=== PATIENT | male | born 1960 | race Hispanic/Latino ===

== ENCOUNTER 2017-04-01 19:37 | Inpatient (IN) | payer MEDICARE ==
[2017-04-01 20:26] LABS: #Basophils 0.1 thou/uL (0.0-0.2); #Eosinphils 0.2 thou/uL (0.0-0.7); #Lymphocytes 1.6 thou/uL (1.20-3.40); #Monocytes 1.2 thou/uL (0.11-0.59); #Neutrophils 11.6 thou/uL (1.40-6.50); %Basophils 0.4 % (0.0-1.0); %Eosinophils 1.1 % (0.0-10.0); %Monocytes 8.3 % (0.0-10.0); Hematocrit 31.5 % (42.0-52.0); Mean Platelet Volume 7.2 fL (7.4-10.4); Red Blood Cell (RBC) Count 3.25 mill/uL (4.70-6.10); White Blood Cell (WBC) Count 14.7 thou/uL (4.8-10.8)
[2017-04-01] MEDS ORDERED: Acetaminophen 500 MG TAB ONE (20:36)
[2017-04-01 20:49] LABS: ALT (SGPT) 12 U/L (8-55); AST (SGOT) 15 U/L (5-34); Alkaline Phosphatase 134 U/L (40-150); Anion Gap 17 mmol/L (10-20); BUN (Urea Nitrogen) 38 mg/dL (8.4-25.7); Bilirubin, Total 0.6 mg/dL (0.2-1.2); Calc. Creatinine Clearance 0 mL/min (70-130); Carbon Dioxide 26 mmol/L (22-29); Chloride 95 mmol/L (98-107); Estimated GFR-MDRD 10; Globulin 3.9 g/dL (2.4-3.5)
[2017-04-01 21:08] LABS: Bilirubin Small (Negative); Blood, Urine Negative (Negative); Glucose, Urine (Dipstick) 250 mg/dL (Negative); Ketone, Urine Negative (Negative); Nitrite Negative (Negative); Protein, Urine (Dipstick) 300 mg/dL (Neg-Trace)
[2017-04-01 21:13] LABS: Bacteria/HPF None Seen HPF (None Seen); RBC/HPF 0-3 HPF (0-3)
[2017-04-01 21:17] LABS: Lactic Acid - Sepsis 1.6 mmol/L (0.5-2.2)
[2017-04-01] MEDS ORDERED: Ketorolac Tromethamine 30 MG/ML VIAL ONE (21:18)
[2017-04-01 21:23] LABS: Hyaline Casts/LPF 0-3 HYALINE CAST LPF (0-3 Hyaline)
[2017-04-01] MEDS ORDERED: Piperacillin/Tazobactam 4.5 GM in Sodium Chloride 0.9% 100 ML IVPB SCH (21:30)
--- NOTE | 2017-04-01 21:38 | RAD ---
AP CHEST: Indication: Fever. IMPRESSION: No acute cardiopulmonary abnormality. The examination is not appreciably changed from a comparison da emperatriz 10-31-15. Mild cardiomegaly is stable. Osseous structures are similar. POS: [facility]
[2017-04-01] MEDS ORDERED: Vancomycin HCl 1.5 GM in Sodium Chloride 0.9% 250 ML 300 ML IVPB SCH (22:00)
[2017-04-02] MEDS ORDERED: Acetaminophen 325 MG TAB PO PRN (00:01)
[2017-04-02] MEDS ORDERED: Ondansetron HCl/PF 4 MG/2 ML Vial IVP PRN (00:01)
[2017-04-02] MEDS ORDERED: Ondansetron ODT 4 MG TAB SL PRN (00:01)
[2017-04-02] MEDS ORDERED: Acetaminophen 650 MG Suppository PR PRN (02:18)
[2017-04-02] MEDS ORDERED: Dextrose 50% Abboject 50 ML SYRINGE SLOW IVP PRN (02:18)
[2017-04-02] MEDS ORDERED: Dextrose 5% in Water 1,000 ML IV PRN (02:18)
[2017-04-02] MEDS ORDERED: Vancomycin HCl 1 GM in Premix Bag 1 BAG IVPB SCH ×2 (02:30→03:00)
[2017-04-02] MEDS ORDERED: Vancomycin HCl 1.25 GM in Sodium Chloride 0.9% 250 ML 250 ML IVPB SCH (03:00)
[2017-04-02] MEDS ORDERED: Vancomycin HCl 500 MG in Sodium Chloride 0.9% 100 ML IVPB SCH (03:00)
[2017-04-02] MEDS ORDERED: HOLD VANCOMYCIN FOR LEVEL >20 FS SCH (03:00)
[2017-04-02] MEDS ORDERED: Vancomycin HCl 750 MG in Sodium Chloride 0.9% 250 ML 250 ML IVPB SCH (03:00)
[2017-04-02] MEDS: Piperacillin/Tazobactam 2.25 GM in Sodium Chloride 0.9% 100 ML IVPB SCH ×4 (03:46→21:48)
[2017-04-02] MEDS ORDERED: Piperacillin/Tazobactam 4.5 GM in Sodium Chloride 0.9% 100 ML IVPB SCH (04:00)
--- NOTE | 2017-04-02 04:14 | HP ---
PRIMARY CARE PROVIDER: Keith Frost. FURNITURE INSTALLER: Umang Dalal MD CHIEF COMPLAINT: Fever. HISTORY OF PRESENT ILLNESS: Mr. Hernandez is a pleasant 56-year-old gentleman who was seen at [facility] on 04/02/2017. He has end-stage renal disease and diffuse hemodialysis Sun, Sunday, and Sunday. He received an extra hemodialysis on Sunday because he was at volume o verload. On Sunday, that is yesterday, he started having fever. He reports that he had a temperatur e of 102 degrees Fahrenheit at home. He denies any chest pain or shortness of breath. He denies any cough. He denies any dysuria or increased frequency of urination. He denies any abdominal pain. H e denies any vomiting or diarrhea. He reports feeling shaky. REVIEW OF SYSTEMS: The following complete review of systems was negative, unless otherwise mentioned in the HPI or below: Constitutional: Weight loss or gain, sense of well-being, ability to conduct usual activities, exercise tolerance. Skin/Breast: Rash, itching, changes in hair growth or loss, n ail changes, breast lumps, tenderness, swelling, nipple discharge. Eyes: Vision, double vision, tea ring, blind spots, pain. ENT/Mouth: Headaches (location, time of onset, duration, precipitating fac tors), vertigo, lightheadedness, injury. Vision, double vision, tearing, blind spots, pain, nose blee ding, colds, obstruction, discharge, dental difficulties, gingival bleeding, dentures, neck stiffness , pain, tenderness, masses in thyroid or other areas. Cardiovascular: Precordial pain, substernal d istress, palpitations, syncope, dyspnea on exertion, orthopnea, nocturnal paroxysmal dyspnea, edema, cyanosis, hypertension, heart murmurs, varicosities, phlebitis, claudication. Respiratory: Pain, sh ortness of breath, wheezing, stridor, cough, hemoptysis, fever or night sweats. Gastrointestinal: P oor appetite, dysphagia, indigestion, abdominal pain, heartburn, eructation, nausea, vomiting, hemate mesis, jaundice, constipation, or diarrhea, abnormal stools (joshua-colored, tarry, bloody, greasy, fou l smelling), flatulence, hemorrhoids, recent changes in bowel habits. Genitourinary: Urgency, frequ ency, dysuria, nocturia, hematuria, polyuria, oliguria, unusual (or change in) color of urine, stones , hesitancy, change in size of stream, dribbling, acute retention or incontinence, libido, potency. Musculoskeletal: Pain, swelling, redness or heat of muscles or joints, limitation, of motion, muscul ar weakness, atrophy, cramps. Neurologic/Psychiatric: Convulsions, paralyzes, tremor, incoordinatio n, paresthesias, difficulties with memory of speech, sensory or motor disturbances, or muscular coord ination (ataxia, tremor), emotional problems, anxiety, depression, previous psychiatric care, unusual perceptions, hallucinations. Allergy/Immunologic: Skin rash, anemia, bleeding tendency, polydipsia , polyuria, intolerance to heat or cold. PAST MEDICAL HISTORY: Significant for end-stage renal disease on hemodialysis, transient ischemic at tack, hypertension, diabetes mellitus type 2 with retinopathy, neuropathy and nephropathy, dyslipidem ia, hemorrhagic cerebrovascular accident in 2005. PAST SURGICAL HISTORY: Significant for right foot transmetatarsal amputation, multiple dialysis acce sses, cholecystectomy, tonsillectomy, and third left toe partial digit amputation. ALLERGIES: No known drug allergies. CURRENT MEDICATIONS: Lantus insulin 30 units 2 times a day, aspirin 81 mg daily, Renvela 2400 mg 3 t imes a day, clonidine 0.1 mg 3 times a day, vitamin D3 of 1000 units daily, and lisinopril 10 mg anika y. SOCIAL HISTORY: The patient denies tobacco use, alcohol use, or recreational drug use. FAMILY HISTORY: Father at age 76 with colon cancer. PHYSICAL EXAMINATION: GENERAL: Mr. Hernandez is awake and alert, not in acute distress. VITAL SIGNS: Temperature is 99.8 degrees Fahrenheit. Pulse is 76. His breathing at rate of 20 and saturating 96% on room air. Blood pressure is 131/62. Temperature is 99.8 degrees Fahrenheit. He i s obese, with a BMI of 39.5 kilograms per square meter. EYES: No scleral icterus. No conjunctival pallor. ENT: Moist mucosal membranes. No oropharyngeal erythema or exudates. NECK: Supple, nontender, normal range of movement. Trachea is midline. RESPIRATORY: Accessory muscles of breathing are not active. Chest wall movements are symmetric bila terally. LUNGS: Clear to auscultation without wheeze, rhonchi, or crepitations. CARDIOVASCULAR: S1 and S2 are heard, regular. LUNGS: Peripheral pulses palpable. No carotid bruit, no pericardial rub. EXTREMITIES: Hemodialysis catheter access in the left upper extremity appears clean. ABDOMEN: Soft, nontender, bowel sounds heard. No hepatomegaly, no splenomegaly. NEUROLOGIC: Cranial nerves II through XII intact. Deep tendon reflexes are 2+. MUSCULOSKELETAL: Power is 5/5 in all 4 extremities. Status post amputation of all right toes. SKIN: No rashes or subcutaneous nodules. Hemodialysis catheter access site appears clean. LYMPHATIC: No cervical lymphadenopathy. PSYCHIATRIC: Normal mood, normal affect. Patient is oriented to person, place, and time. LABORATORY AND DIAGNOSTIC DATA: Mr. Hernandez's labs and investigations were reviewed. He had a chest x-ray, which did not show any pulmonary infiltrates. Laboratory investigations show leukocytosis wi th 14,700 white cells, of which 79% are neutrophils, macrocytic anemia with hemoglobin of 10.5, jorge l l platelet count, decreased sodium of 134, normal potassium, elevated blood urea nitrogen of 38, elev ated creatinine of 5.76, unremarkable liver profile, normal lactic acid and urinalysis that is positi ve for WBC, squamous epithelial cells, and a small amount of bilirubin, also positive for glucose and protein. ASSESSMENT AND PLAN: Mr. Hernandez is a pleasant 56-year-old gentleman who was seen at [facility] on 04/02/2017. His problem list includes: 1. Sepsis: Mr. Hernandez spiked a temperature of 102.3 degrees Fahrenheit in the emergency room, he a lso has leukocytosis. At this point, there is no clear focus of infection. However, bacteremia susp ected. He will be admitted to the hospital and treated with intravenous antibiotics. He has been st arted on Zosyn and vancomycin, and I will continue the same. We will await blood cultures. I am not giving him fluids, since he was recently in volume overload. 2. End-stage renal disease on dialysis. We will consult Nephrology Service and continue maintenance hemodialysis as per their recommendations. 3. Diabetes mellitus. I will start insulin sliding scale, Accu-Cheks, continue home medications. 4. History of transient ischemic attack: Stable. Many thanks for allowing me to participate in your patient's care. Please feel free to contact me wi th any questions or concerns. LEVEL OF RISK: Moderate. LEVEL OF COMPLEXITY: Moderate.
[2017-04-02 04:35] LABS: #Eosinphils 0.1 thou/uL (0.0-0.7); #Lymphocytes 2.1 thou/uL (1.20-3.40); #Monocytes 1.5 thou/uL (0.11-0.59); #Neutrophils 8.5 thou/uL (1.40-6.50); %Basophils 0.1 % (0.0-1.0); %Eosinophils 0.9 % (0.0-10.0); %Lymphocytes 17.1 % (21.0-51.0); %Monocytes 12.1 % (0.0-10.0); Hematocrit 26.7 % (42.0-52.0); Red Blood Cell (RBC) Count 2.75 mill/uL (4.70-6.10); White Blood Cell (WBC) Count 12.2 thou/uL (4.8-10.8)
[2017-04-02 04:42] LABS: Anion Gap 14 mmol/L (10-20); BUN (Urea Nitrogen) 45 mg/dL (8.4-25.7); Calc. Creatinine Clearance 21 mL/min (70-130); Calcium 8.3 mg/dL (7.8-10.44); Carbon Dioxide 29 mmol/L (22-29); Chloride 96 mmol/L (98-107); Estimated GFR-MDRD 9
[2017-04-02] MEDS: HumaLOG 300 UNITS/3 ML VIAL SC PRN ×3 (06:41→22:44)
[2017-04-02] MEDS: Heparin 5,000 UNITS/ML VIAL SC SCH ×3 (09:13→21:41)
[2017-04-02] MEDS ORDERED: Epoetin (ESRD) 20,000 UNITS/ML SC SCH (09:15)
--- NOTE | 2017-04-02 09:47 | CON ---
DATE OF CONSULTATION: 04/02/2017 HISTORY OF PRESENT ILLNESS: Mr. Hernandez is a 56-year-old male who was admitted for right fo ot infection/fever. He has been empirically treated with Zosyn and IV vancomycin. We are now being consulted for his maintenance hemodialysis. Please note the patient has been having a temperature as high as 102 in the last few days. REVIEW OF SYSTEMS: No chest pain, no shortness of breath. Positive for chronic right foot infection , no nausea, no vomiting, no diarrhea. Positive for fever. No headache, no diplopia. No nausea, no vomiting, no hematochezia, no melena, no hematemesis. No abdominal pain. Appetite and energy level is decreased. No dysphagia, occasional heartburn. No joint pains. No new skin rash. HOME MEDICATIONS: Lantus insulin 30 units subcu b.i.d., aspirin 81 mg tab once daily, Renvela 800 mg 3 tabs t.i.d. with meals, clonidine 0.1 mg t.i.d., vitamin D3 1000 international units daily, lisino pril 10 mg daily. Currently, the patient has been started on vancomycin and Zosyn. PAST MEDICAL HISTORY: 1. ESRD from presumed diabetic nephropathy - on maintenance hemodialysis Sunday, Sunday, and ay 2. Type 2 diabetes mellitus. 3. Status post seizure disorder. 4. Peripheral vascular disease. 5. Status post CHF. 6. Status post cerebrovascular accident. PAST SURGICAL HISTORY: 1. Status post laparoscopic cholecystectomy. 2. Status post AV fistula placement. 3. Status post debridement of the right foot ulcer. 4. Status post AV fistula placement. 5. Status post cuffed dialysis catheter placement. 6. Status post right second toe amputation. SOCIAL HISTORY: The patient is . 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 He lives in [place]. N o IV drug abuse. Status post blood transfusion. Currently, no smoking. Medically disabled. FAMILY HISTORY: No family history of ESRD. ALLERGIES: None. TRAUMA: None. IMMUNIZATIONS: Up to date. HOSPITALIZATIONS: Please see past medical history. PHYSICAL EXAMINATION: VITAL SIGNS: Blood pressure is noted at 131/62 with a heart rate of 76, temperature 99.8, O2 sat 96% . GENERAL: He is awake, alert, supine, comfortable. SKIN: Adequate turgor. HEENT: Pinkish conjunctivae, anicteric sclerae. NECK: No neck mass, no carotid bruits. No JVD. Trachea is midline. LUNGS: Clear breath sounds. No wheezing, no crackles. HEART: Normal sinus rhythm. No murmur, no gallops or rubs. ABDOMEN: Globular, soft, nontender, no masses. Positive for bowel sounds. EXTREMITIES: No edema, no deformities. LUNGS: Status post amputation of the right toes. NEUROLOGIC: Moving all extremities. No tremors or asterixis, no ataxia. LABORATORY: 04/02/2017 - White count 12.2, hemoglobin 9.2. Sodium 135, potassium 3.8, chloride 96, carbon dioxide 29, BUN 45, creatinine 6.48, glucose 298, calcium 8.3. ASSESSMENT AND PLAN: 1. End-stage renal disease secondary to diabetic nephropathy - we will continue current Sunday, esd, Sunday hemodialysis regimen. Fluid removal as tolerated by the patient. No changes with this current dialysis regimen. I did review the last Kt/V and he is adequately dialyzed with the current dialysis regimen. 2. Fever. This could be an underlying right foot infection. He does have a small discharge on near ly a pinpoint ulceration. He is on empiric IV antibiotics. 3. Anemia - p.r.n. blood transfusion. Resume Epogen 10,000 units subcu q. week. Overall, I agree with current management.
--- NOTE | 2017-04-02 12:02 | HP ---
DATE OF CONSULTATION: 04/02/2017 HISTORY OF PRESENT ILLNESS: A 56-year-old male well known to me. He has had partial amputations of his right foot on multiple occasions. He has been followed by Podiatry for a neuropathic ulcer plant ar arch right foot. They have been debriding callus. The patient presents on this occasion admitted 04/02/2017 for chills and discomfort in his foot and fever. He had a fever to 102 degrees as an out patient. He has a right midfoot plantar ulceration. Wound Care call me today noting that he has a c allus and proximal plantar ulceration extends tracking the lateral portion of his foot with purulent discharge and cellulitis, plantar and lateral and dorsally. Blood cultures have been negative. This wound has not been cultured. When I probed the wound, it extends about 3-4 cm deep and laterally an d by the patient feels to involve connective tissue. There is connective tissue that falls out of th e wound when I removed the probing Q-tip. White count 12, hemoglobin 9.2. The patient has end-stage renal disease on maintenance dialysis via left arm fistula that I placed years past. The patient arroyo d a cardiac stress test last year that was normal with a normal ejection fraction. He has had previo us amputation of his right third, fourth, and fifth toes to the proximal phalanx with primary closure of third and fourth toes and right small toe wound left open to heal by secondary intention, 02/2012 , right great toe and metatarsal healing secondary intention 10/2011; 07/2011 amputation of left thir d toe through the proximal pharynx left open for healing by secondary intention; 03/10/2011 left basi lic vein transposition fistula; 12/14/2010 left arm primary fistula. ALLERGIES: None. TOBACCO: None for more than 20 years. ALCOHOL: None. PAST SURGICAL HISTORY: Laparoscopic cholecystectomy 12/2009, decubitus ulcer debridement sacral circ umcision 10/31/1999, tonsillectomy, drainage of deep neck abscess 06/19/2011, right frontal external ventricular drain placed after hemorrhagic stroke by Dr. Kelvin Walls 11/22/2005, PEG tube place ment and eventually removed, history EGDs and colonoscopies, multiple foot surgeries, left third toe distal toe, left basilic vein transposition fistula in 02/2011 after 12/14/2010 left arm fistula, par tial amputations of toes, right foot 2010 and 2011. PAST MEDICAL HISTORY: Diabetes mellitus, hypertension, obesity, end-stage renal disease on [facility] dialysis Sunday, Sunday, and Sunday, followed by Dr. Umang Dalal, history of hemorrhagic stro ke, history neuropathic ulcer. 12/31/2013, incision and drainage of large abscess, right foot, debriding skin and subcutaneous tissu e and wound VAC. HOME MEDICATIONS: Atorvastatin 20 mg at bedtime, aspirin 81 mg daily, insulin 30 units subcu b.i.d., Humalog 10 units subcu t.i.d., hydralazine 50 mg t.i.d., clonidine 0.2 mg b.i.d., Renvela 800 mg t.i .d., Protonix 40 mg daily, trazodone 50 mg at bedtime. REVIEW OF SYSTEMS: Ten point noncontributory. PHYSICAL EXAMINATION: VITAL SIGNS: Temperature 98.3, 70, 146/61. He is 5 foot 7, 252 pounds, 39 BMI. HEENT: Unremarkable. LUNGS: Clear to auscultation. CARDIAC: Regular rate and rhythm without murmur or gallop. EXTREMITIES: Fistula in left arm with good thrill and bruit. Palpable pulses feet. Partial amputat ions toes of left foot and right foot as described above. Neuropathic ulcer, plantar aspect proximal plantar right foot. There is about a 2 cm opening. After informed consent, alcohol prep, sharp excisional resectional debridement using a 10 blade scalp el used to remove callus. Probing this reveals it extends 3-4 cm deep laterally and seems to involve underlying tendons by palpation. There is purulent discharge and necrotic tissue protruding, there is cellulitis. ASSESSMENT AND PLAN: 1. Diabetic foot infection, right. We will obtain x-rays of the patient's foot right and make [facility] recommendations based on this. The patient is at risk for having amputation. We could debride hi s foot and perform wound care, although it is unlikely that this will heal with conservative wound ca re because of the deep infection and the location of the ulceration and his essential Charcot foot. I have talked to him about consideration of amputation below the knee with eventual prosthesis. He w ill talk to his , Dorene, about this and we will discuss it further later today or tomorrow after I obtain x-rays today. 2. Diabetes mellitus. 3. Hypertension. 4. End-stage renal disease. 5. Obesity.
[2017-04-02] MEDS: Epoetin (ESRD) 10,000 UNITS/ML VIAL SC SCH (13:32)
--- NOTE | 2017-04-02 15:38 | RAD ---
3 VIEWS RIGHT FOOT: Date: 04/02/17 COMPARISON: 03/17/14. HISTORY: Diabetic foot ulcer, assess for osteomyelitis. FINDINGS: Along the plantar aspect of the mid foot, there are two linear densities measuring in the 8-9 mm rang e, suggesting linear metallic foreign bodies within the soft tissues. There is soft tissue swelling i n these regions as well. There is severe advanced degenerative change involving the mid foot. There i s surgical absence involving the great toe at the base of the first metatarsal, the second toe at the base of the second proximal phalanx, the third toe at the distal aspect of the first proximal phalan x, the fourth toe at the level of the distal portion of fourth proximal phalanx, and of the fifth toe at the base of the fifth proximal phalanx. No subcutaneous gas. No acute fracture or dislocation. IMPRESSION: Linear foreign bodies within the plantar soft tissues near the mid foot region. Evidence of prior amp utation of all digits with marked degenerative change involving the mid foot. Osteomyelitis cannot be excluded on the basis of this exam. Plantar soft tissue swelling suggests significant cellulitis. POS: [facility]
[2017-04-02 17:26] VITALS: BMI 39.4
[2017-04-02] MEDS: Acetaminophen 325 MG TAB PO PRN ×2 (18:03→21:49)
[2017-04-02] MEDS: traMADol HCl 50 MG TAB PO PRN (21:41)
[2017-04-03] MEDS: Piperacillin/Tazobactam 2.25 GM in Sodium Chloride 0.9% 100 ML IVPB SCH ×4 (04:03→22:12)
[2017-04-03 04:41] LABS: #Eosinphils 0.2 thou/uL (0.0-0.7); #Monocytes 1.4 thou/uL (0.11-0.59); #Neutrophils 8.5 thou/uL (1.40-6.50); %Basophils 0.1 % (0.0-1.0); %Eosinophils 1.5 % (0.0-10.0); %Lymphocytes 16.2 % (21.0-51.0); %Monocytes 11.3 % (0.0-10.0); Hematocrit 27.6 % (42.0-52.0); Mean Platelet Volume 7.6 fL (7.4-10.4); Red Blood Cell (RBC) Count 2.85 mill/uL (4.70-6.10)
[2017-04-03 05:08] LABS: Anion Gap 14 mmol/L (10-20); BUN (Urea Nitrogen) 27 mg/dL (8.4-25.7); Calc. Creatinine Clearance 27 mL/min (70-130); Calcium 8.2 mg/dL (7.8-10.44); Carbon Dioxide 30 mmol/L (22-29); Chloride 93 mmol/L (98-107); Estimated GFR-MDRD 12
[2017-04-03] MEDS: HumaLOG 300 UNITS/3 ML VIAL SC PRN ×3 (06:54→21:56)
[2017-04-03] MEDS: Heparin 5,000 UNITS/ML VIAL SC SCH ×3 (09:08→21:57)
[2017-04-03] MEDS: Insulin Detemir 100 UNITS/ML 30 UNITS in Pre-Filled Syringe 1 EACH SC SCH ×2 (10:22→21:56)
--- NOTE | 2017-04-03 12:28 | PDOC.PN ---
- Subjective Encounter Start Date: 04/03/17 Encounter Start Time: 10:45 -: old records requested/rev pt seen - Objective MAR Reviewed: Yes Vital Signs & Weight: Vital Signs (12 hours) Temp Pulse Resp BP Pulse Ox 04/03/17 08:00 98.8 F 70 16 128/68 98 04/03/17 04:43 99.0 F 77 16 132/53 L 96 Weight Admit Weight 252 lb Weight 252 lb I&O: 04/02/17 04/03/17 04/04/17 06:59 06:59 06:59 Intake Total 650 730 Output Total 500 Balance 150 730 Result Diagrams: 04/03/17 03:54 04/03/17 03:54 Additional Labs: Accuchecks 04/03/17 04/03/17 04/02/17 11:59 05:37 22:18 POC Glucose 271 H 310 H 352 H 04/02/17 12:19 POC Glucose 239 H Radiology Reviewed by me: Yes EKG Reviewed by me: Yes Phys Exam - Physical Examination Constitutional: NAD HEENT: PERRLA, moist MMs, sclera anicteric, oral pharynx no lesions Neck: no nodes, no JVD, supple, full ROM Respiratory: no wheezing, no rales, no rhonchi, clear to auscultation bilateral Cardiovascular: RRR, no significant murmur, no rub Gastrointestinal: soft, non-tender, no distention, positive bowel sounds Musculoskeletal: edema present charcot deformity of R foot, amputated toes. plantar wound deep Neurological: non-focal, normal sensation, moves all 4 limbs Lymphatic: no nodes Psychiatric: normal affect, A&O x 3 Skin: no rash Dx/Plan (1) Diabetic neuropathic arthropathy Code(s): E11.610 - TYPE 2 DIABETES MELLITUS W DIABETIC NEUROPATHIC ARTHROPATHY Status: Chronic (2) DM2 (diabetes mellitus, type 2) Status: Acute Qualifiers: Diabetes mellitus complication status: with diabetic arthropathy Diabetes mellitus complication detail: with neuropathic arthropathy Diabetes mellitus alf insulin use: with alf use Qualified Code(s): E11.618 - Type 2 diabetes mellitus with other diabetic arthropathy; 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; 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; 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 ( 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) use of insulin; 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 MRI per surgery scheduled, will follow up on results and surgical recommendations. CCM at present
--- NOTE | 2017-04-03 13:52 | MRI ---
MRI OF THE RIGHT FOOT PERFORMED WITHOUT CONTRAST ENHANCEMENT: HISTORY: Diabetic foot ulcer. Evaluation for osteomyelitis. COMPARISON: An MRI examination done on 01/22/2014 and a plain film of the right foot, which was performed yesterd ay. FINDINGS: There is considerable motion artifact, which degrades detail. The patient has had an ampu tation along the base of the first metatarsal. Also, amputation of portions of all the toes. The ma rrow signal change within the bones show no definite findings that would suggest osteomyelitis. The soft tissue changes along the plantar surface of the foot, at the level of the tarsal bones, is again demonstrated. Minimal fluid density is seen deep to this area. The change are more extensive and e xtend more toward the lateral side of the foot than on the previous exam. Artifact related to small metallic foreign bodies are noted. IMPRESSION: 1. No magnetic resonance evidence for osteomyelitis. 2. Extensive soft tissue changes on the plantar surface of the foot. Minimal fluid is seen in this region. No large abscess collection is noted. Linear metallic densities are seen within the soft ti ssues along the plantar aspect of the foot. POS: [facility]
[2017-04-03] MEDS: traMADol HCl 50 MG TAB PO PRN (18:05)
--- NOTE | 2017-04-03 20:54 | PRG ---
DATE OF SERVICE: 04/03/2017 Mr. Hernandez has a deep infection in his right foot. Plain x-rays did not reveal any bony destruction . MRI did not reveal any evidence of bony destruction or osteomyelitis. The patient has remained af ebrile with normal heart rate. Cultures from his right foot yesterday that revealed Staphylococcus a ureus. The patient has had partial amputations of his right foot and the plantar neuropathic wound i s in the proximal arch and deep towards the ankle bones. Long-term prognosis for limb salvage is poo r. After discussion with the patient and further discussion with the patient's family, patient wishe s to proceed with local wound care and attempted salvage of his lower extremity understanding that up the road, there is a great chance of eventual [id number] amputation. Plan would be to go to the operating room tomorrow to drain this wound and wash it out and initiate more aggressive wound care. The patient is in agreement. We will plan this tomorrow afternoon.
[2017-04-04] MEDS: Piperacillin/Tazobactam 2.25 GM in Sodium Chloride 0.9% 100 ML IVPB SCH ×4 (05:25→20:09)
[2017-04-04 06:16] LABS: Anion Gap 16 mmol/L (10-20); BUN (Urea Nitrogen) 46 mg/dL (8.4-25.7); Calc. Creatinine Clearance 19 mL/min (70-130); Calcium 8.1 mg/dL (7.8-10.44); Carbon Dioxide 27 mmol/L (22-29); Chloride 95 mmol/L (98-107); Estimated GFR-MDRD 8; Magnesium 2.1 mg/dL (1.6-2.6)
[2017-04-04 06:17] LABS: #Eosinphils 0.3 thou/uL (0.0-0.7); #Lymphocytes 2.4 thou/uL (1.20-3.40); #Monocytes 1.2 thou/uL (0.11-0.59); #Neutrophils 7.8 thou/uL (1.40-6.50); %Basophils 0.1 % (0.0-1.0); %Eosinophils 2.9 % (0.0-10.0); %Lymphocytes 20.2 % (21.0-51.0); %Monocytes 10.5 % (0.0-10.0); Hematocrit 26.9 % (42.0-52.0); Mean Platelet Volume 7.2 fL (7.4-10.4); Red Blood Cell (RBC) Count 2.79 mill/uL (4.70-6.10); White Blood Cell (WBC) Count 11.7 thou/uL (4.8-10.8)
--- NOTE | 2017-04-04 08:45 | PRG ---
DATE OF SERVICE: 04/04/2017 SUBJECTIVE: Mr. Hernandez is a 56-year-old male being followed up for his ESRD. He is curren tly undergoing dialysis. I am at the bedside supervising his dialysis. Mr. Hernandez was also seen by surgery for his deep infection of the right foot. A surgical debridement is being planned today. H e voices no new complaints. He denies any chest pain or shortness of breath. OBJECTIVE: VITAL SIGNS: Blood pressure 155/63, heart rate 67, respiration 16, temperature 98.6, pulse ox 95%. GENERAL: Noted to be awake and alert, comfortable, not in distress. SKIN: Adequate turgor. HEENT: He has slightly pale conjunctivae, anicteric sclerae. NECK: No neck mass, no carotid bruits, no JVD. CHEST: No deformities. LUNGS: Clear breath sounds. No wheezing, no crackles. HEART: Normal sinus rhythm. No murmur, no gallops or rubs. ABDOMEN: Globular, soft, nontender, no masses. EXTREMITIES: Right foot dressing noted. NEUROLOGIC: Awake, oriented, moving all extremities. MEDICATIONS: Of 04/04/2017 was reviewed. LABORATORY DATA: Of 04/04/2017, white count 11.7, hemoglobin 8.8. Sodium 134, potassium 3.7, chlori de 95, carbon dioxide 27, BUN 46, creatinine 7.2, glucose 93, calcium 8.1, magnesium 2.1. ASSESSMENT AND PLAN: 1. End-stage renal disease, stable. Currently undergoing dialysis. Tolerating said treatment, atte mpt 4 liter of fluid removal only as tolerated. Continue the same dialysis bath. No heparin use. 2. Right foot infection - for surgical debridement on IV antibiotics. 3. Anemia. We will continue weekly Epogen of 10,000 units subcu. 4. Recheck base met and CBC in a.m.
[2017-04-04 08:55] LABS: Vancomycin, Random 13.9 ug/mL (See Comment)
[2017-04-04] MEDS: Insulin Detemir 100 UNITS/ML 30 UNITS in Pre-Filled Syringe 1 EACH SC SCH ×2 (09:00→20:09)
[2017-04-04] MEDS: Heparin 5,000 UNITS/ML VIAL SC SCH ×3 (09:00→20:10)
--- NOTE | 2017-04-04 14:56 | PDOC.PN ---
- Subjective Encounter Start Date: 04/04/17 Encounter Start Time: 08:45 Pt seen on morning rounds while he was in dialysis. No F/C, no night sweats, no n/v/d/c, no pain. MRI results reviewed, case discussed with Dr Wood. to OR today after HD for I&D. no MRI evidence of osteo. Pt wants to have aggressive wound care. Cx with MSSa. no F/C,no N/V/d/C. 10 point ROS performed and all systems neg for all except as per HPI - Objective Resuscitation Status: full MAR Reviewed: Yes Vital Signs & Weight: Vital Signs (12 hours) Temp Pulse Resp BP Pulse Ox 04/04/17 12:22 98.5 F 71 16 165/88 H 97 04/04/17 07:15 98.6 F 67 16 155/63 H 95 04/04/17 04:22 98.6 F 72 16 155/71 H 97 Weight Admit Weight 252 lb Weight 252 lb I&O: 04/03/17 04/04/17 04/05/17 06:59 06:59 06:59 Intake Total 650 1030 Output Total 500 Balance 150 1030 Result Diagrams: 04/04/17 05:11 04/04/17 05:11 Additional Labs: Accuchecks 04/04/17 04/04/17 04/03/17 12:58 05:50 22:38 POC Glucose 80 96 244 H 04/03/17 17:13 POC Glucose 418 H Radiology Reviewed by me: Yes EKG Reviewed by me: Yes Phys Exam - Physical Examination Constitutional: NAD HEENT: PERRLA, moist MMs, sclera anicteric, oral pharynx no lesions Neck: no nodes, no JVD, supple, full ROM Respiratory: no wheezing, no rales, no rhonchi, clear to auscultation bilateral Cardiovascular: RRR, no significant murmur, no rub Gastrointestinal: soft, non-tender, no distention, positive bowel sounds Musculoskeletal: pulses present, edema present Neurological: non-focal, moves all 4 limbs Lymphatic: no nodes Psychiatric: normal affect, A&O x 3 Skin: no rash, normal turgor, cap refill <2 seconds Dx/Plan (1) Diabetic neuropathic arthropathy Code(s): E11.610 - TYPE 2 DIABETES MELLITUS W DIABETIC NEUROPATHIC ARTHROPATHY Status: Chronic Comment: right foot charcot with neuropathic ulcer, cellulitis (2) DM2 (diabetes mellitus, type 2) Status: Acute Qualifiers: Diabetes mellitus complication status: with diabetic arthropathy Diabetes mellitus complication detail: with neuropathic arthropathy Diabetes mellitus chcf insulin use: with chcf use Qualified Code(s): E11.618 - Type 2 diabetes mellitus with other diabetic arthropathy; Z79.4 - penitentiary (current) use of insulin; Z79.4 - penitentiary (current) use of insulin; Z79.4 - penitentiary ( current) use of insulin; Z79.4 - penitentiary (current) use of insulin (3) ESRD (end stage renal disease) on dialysis Code(s): N18.6 - END STAGE RENAL DISEASE; Z99.2 - DEPENDENCE ON RENAL DIALYSIS Status: Chronic (4) Cellulitis and abscess of foot Code(s): L03.119 - CELLULITIS OF UNSPECIFIED PART OF LIMB; L02.619 - CUTANEOUS ABSCESS OF UNSPECIFIED FOOT Status: Acute Comment: no MRI evidence of osteomyelitis (5) HTN (hypertension) Code(s): I10 - ESSENTIAL (PRIMARY) HYPERTENSION Status: Chronic Qualifiers: Hypertension type: essential hypertension Qualified Code(s): I10 - Essential (primary) hypertension - Plan cont current plan of care, continue antibiotics * .
[2017-04-04] MEDS ORDERED: Lidocaine 1% PF 5 ML VIAL ONE (15:25)
[2017-04-04] MEDS ORDERED: Propofol 200 MG/20 ML VIAL ONE (15:25)
[2017-04-04] MEDS ORDERED: Fentanyl 100 MCG/2 ML VIAL ONE (17:30)
[2017-04-04] MEDS ORDERED: Midazolam HCl 2 mg/2 ml Vial ONE (17:30)
[2017-04-04] MEDS: Acetaminophen 325 MG TAB PO PRN (22:27)
[2017-04-04] MEDS: traMADol HCl 50 MG TAB PO PRN (22:27)
--- NOTE | 2017-04-05 00:40 | OP ---
DATE OF PROCEDURE: 04/04/2017 PREOPERATIVE DIAGNOSES: Diabetic plantar foot ulceration and deep infection, negative plain x-rays a nd MRI for osteomyelitis. Previous amputations of toes. Neuropathic ulcer, proximal plantar arch wi th extensive undermining and purulent discharge. Enterococcus and Staphylococcus on cultures. POSTOPERATIVE DIAGNOSES: Diabetic plantar foot ulceration and deep infection, negative plain x-rays and MRI for osteomyelitis. Previous amputations of toes. Neuropathic ulcer proximal plantar arch wi th extensive undermining and purulent discharge, Enterococcus and Staphylococcus on cultures, foreign body wooden object approximately 3 cm long removed. PROCEDURE: Incision and drainage of diabetic right foot plantar abscess with removal of foreign body pulse irrigation and washout. SURGEON: Dr. Sam Wood ANESTHESIA: General LMA. PROCEDURE IN DETAIL: Patient taken to the operating room where under general LMA anesthesia, the rig ht lower extremity was prepared with chloraprep, draped in routine fashion. Wound was irrigated. Th e wound was irrigated after enlarging the incision. Digital palpation revealed a wooden foreign body round, cylindrical approximately 3 cm long. This was removed and placed in a cup, given to the fami ly. Wound pulse irrigated with 3 liters of saline solution. Saline wet to dry dressings applied. P xenia wound VAC application tomorrow intravenous antibiotics during dialysis, discharged home later thi s week with wound VAC and outpatient [facility] wound care. I will see him in outpatient wound care in the next week or two. He can be discharged home in the next 2 days with outpatient wound care next week. Prognosis is poor.
[2017-04-05] MEDS: Piperacillin/Tazobactam 2.25 GM in Sodium Chloride 0.9% 100 ML IVPB SCH ×2 (03:21→09:18)
[2017-04-05] MEDS ORDERED: hydrALAZINE 25 MG TAB PO SCH (06:00)
[2017-04-05] MEDS ORDERED: cloNIDine 0.2 MG TAB PO SCH (06:00)
[2017-04-05 06:13] LABS: #Eosinphils 0.4 thou/uL (0.0-0.7); #Lymphocytes 1.6 thou/uL (1.20-3.40); #Neutrophils 5.9 thou/uL (1.40-6.50); %Basophils 0.5 % (0.0-1.0); %Eosinophils 4.4 % (0.0-10.0); %Lymphocytes 18.1 % (21.0-51.0); %Monocytes 10.8 % (0.0-10.0); Hematocrit 29.8 % (42.0-52.0); Mean Platelet Volume 7.4 fL (7.4-10.4); Red Blood Cell (RBC) Count 3.07 mill/uL (4.70-6.10); White Blood Cell (WBC) Count 8.9 thou/uL (4.8-10.8)
[2017-04-05 06:34] LABS: Anion Gap 14 mmol/L (10-20); BUN (Urea Nitrogen) 32 mg/dL (8.4-25.7); Calc. Creatinine Clearance 25 mL/min (70-130); Calcium 8.5 mg/dL (7.8-10.44); Carbon Dioxide 30 mmol/L (22-29); Chloride 96 mmol/L (98-107); Estimated GFR-MDRD 11
[2017-04-05] MEDS: Insulin Detemir 100 UNITS/ML 30 UNITS in Pre-Filled Syringe 1 EACH SC SCH ×2 (09:19→20:43)
[2017-04-05] MEDS: Heparin 5,000 UNITS/ML VIAL SC SCH ×2 (09:19→20:44)
--- NOTE | 2017-04-05 12:25 | PQF ---
DATE: 04-05-17 ATTN: DR. DAVIS MALDONADO / DR. LILLIAM STRICKLAND Please exercise your independent, professional judgment in responding to the clarification form. Clinical indicators are provided on the bottom of this form for your review Please check appropriate box(s) to clarify if the following diagnosis has been ruled in our ruled out: SEPSIS (CDI/Coding list diagnosis here) [ X ] Ruled in diagnosis [ ] Continue to treat [ X ] Resolved [ ] Ruled out diagnosis [ ] Other diagnosis [ ] Unable to determine In addition, please specify: Present on Admission (POA): [ ] Yes [ ] No [ ] Unable to determine For continuity of documentation, please document condition throughout progress notes and discharge summary. Thank You. CLINICAL INDICATORS - SIGNS / SYMPTOMS / LABS ER DIAGNOSIS: FEVER, RULE OUT SEPSIS H&P: SEPSIS. MR. BELLAMY SPIKED A TEMPERATURE OF 102.3 DEGREES FAHRENHEIT IN THE ER, HE ALSO HAS LEUKOCYTOSIS. WBC: 04-01-17: 14.7 04-02-17: 12.2 04-03-17: 12.0 04-04-17: 11.7 TEMP: 04-01-17: 99.8, 9.8 04-02-17: 100.7 RISK FACTORS: H&P: DIABETIC FOOT INFECTION OF RIGHT, HX OF DM, HTN, CVA, FEVERS, TREATMENTS: (ER ) IV ZOSYN, VANC (This form is maintained as a part of the permanent medical record) 2014 [employer] All Rights Reserved DENZEL [email or web address] Office: [phone] [facility]
--- NOTE | 2017-04-05 12:26 | PDOC.PN ---
- Subjective Encounter Start Date: 04/05/17 Encounter Start Time: 12:24 Patient seen and examined. No new complaints. No overnight events - Objective MAR Reviewed: Yes Vital Signs & Weight: Vital Signs (12 hours) Temp Pulse Resp BP BP Pulse Ox 04/05/17 07:50 98.0 F 66 12 153/76 H 99 04/05/17 06:25 65 193/71 H 04/05/17 05:22 97.9 F 65 18 193/71 H 98 04/05/17 00:45 98.5 F 72 17 121/67 98 Weight Admit Weight 252 lb Weight 252 lb I&O: 04/04/17 04/05/17 04/06/17 06:59 06:59 06:59 Intake Total 1030 1020 Balance 1030 1020 Result Diagrams: 04/05/17 05:12 04/05/17 05:11 Additional Labs: Accuchecks 04/05/17 04/04/17 04/04/17 05:51 21:02 12:58 POC Glucose 243 H 238 H 80 Phys Exam - Physical Examination Constitutional: NAD HEENT: PERRLA Neck: no JVD Respiratory: no wheezing Cardiovascular: no significant murmur Gastrointestinal: non-tender Musculoskeletal: pulses present rt leg in dressing Neurological: moves all 4 limbs Psychiatric: A&O x 3 Dx/Plan (1) Cellulitis and abscess of foot Code(s): L03.119 - CELLULITIS OF UNSPECIFIED PART OF LIMB; L02.619 - CUTANEOUS ABSCESS OF UNSPECIFIED FOOT Status: Acute Comment: no MRI evidence of osteomyelitis i&d done by surg on 04/04 (2) DM2 (diabetes mellitus, type 2) Status: Acute Qualifiers: Diabetes mellitus complication status: with diabetic arthropathy Diabetes mellitus complication detail: with neuropathic arthropathy Diabetes mellitus fpc insulin use: with fpc use Qualified Code(s): E11.618 - Type 2 diabetes mellitus with other diabetic arthropathy; Z79.4 - shelter (current) use of insulin; Z79.4 - shelter (current) use of insulin; Z79.4 - shelter ( current) use of insulin; Z79.4 - shelter (current) use of insulin (3) Diabetic neuropathic arthropathy Code(s): E11.610 - TYPE 2 DIABETES MELLITUS W DIABETIC NEUROPATHIC ARTHROPATHY Status: Chronic Comment: right foot charcot with neuropathic ulcer, cellulitis (4) ESRD (end stage renal disease) on dialysis Code(s): N18.6 - END STAGE RENAL DISEASE; Z99.2 - DEPENDENCE ON RENAL DIALYSIS Status: Chronic (5) HTN (hypertension) Code(s): I10 - ESSENTIAL (PRIMARY) HYPERTENSION Status: Chronic Qualifiers: Hypertension type: essential hypertension Qualified Code(s): I10 - Essential (primary) hypertension - Plan * continue abx * consult dr calvert for abx recommendations * surg and renal input appreciated
--- NOTE | 2017-04-05 13:06 | CON ---
DATE OF CONSULTATION: 04/05/2017 REASON FOR CONSULTATION: Plantar foot infection. HISTORY OF PRESENT ILLNESS: A 56-year-old who has a longstanding history of type 2 diabetes mellitus , end-stage renal disease on hemodialysis and a chronic ulcer at the bottom aspect of the right first MP joint, treated in the past. I saw him in 2013 when he presented with complications related to th is ulcerated area and this time, he presented with new onset of fever. He denies any headaches, no s hortness of breath or cough, no back pain or abdominal pain, no diarrhea, no genitourinary symptoms. In the initial evaluation did not show any remarkable findings except for the amputations of the rig ht foot toes. The impression was fever of unknown origin. Subsequently, became more obvious that randell kingsley had an inflammatory process localized to the bottom of the right foot and an MRI demonstrated t his finding with evidence of foreign bodies as well. No evidence of osteomyelitis that was noted. Blanca cage underwent surgical debridement by Dr. Wood and there is a wooden foreign body which looked l nely a toothpick impacted in the tissues. Cultures from the site yielded MSSA in 2 samples and Entero coccus in one of the samples. The patient currently has a wound VAC in place. REVIEW OF SYSTEMS: Denies any headaches, no change in visual symptoms, sore throat, odynophagia, dys phagia, no chest pain, no abdominal pain or diarrhea. 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 PAST SURGICAL HISTORY: Cholecystectomy, tonsillectomy in addition to the above surgeries. ALLERGIES: None. MEDICATIONS: Insulin, aspirin, Renvela, clonidine, vitamin D. SOCIAL HISTORY: Never a smoker. FAMILY HISTORY: Colon cancer. PHYSICAL EXAMINATION: VITAL SIGNS: T-max 100.7. He is currently afebrile. BP 150/76, pulse 66, respirations 12. GENERAL: There is no distress, awake, alert, oriented, pleasant. HEENT: Ocular movements are conjugate. Oral cavity with no hamilton teeth. NECK: Supple, no jugular venous distention. LUNGS: With symmetric clear breath sounds. HEART: S1, S2, regular rate. No S3 or S4. ABDOMEN: Soft, not distended or tender. No bladder distention. Popliteal pulses are 1+ and dorsali s pedis 1+ as well, right foot with a bulky dressing and negative pressure dressing. Moves all extre mities equally without focal weakness. NEUROLOGIC: Cognitive function appears to be intact. LABORATORY DATA: White cell count down from 14-8.9, hemoglobin 10, platelets 232. Sodium 136, creat inine 5.43. Liver profile normal. Albumin 4.1. Urinalysis with 11-20 wbcs and hepatitis surface an tigen negative and the imaging study as noted above. There is a foot x-ray from 04/02/2017 showed li near foreign bodies in the plantar soft tissues. ASSESSMENT: Superficial infection, status post surgical debridement. At this point, we will transit ion patient to oral Keflex, adjusted for renal function and discharge planning with wound care treat for about 2 weeks. In view of neuropathy, the patient will be at risk for recrudescence of inflammat ory process. He will need a special orthotic to prevent recurrence.
[2017-04-05] MEDS: hydrALAZINE 25 MG TAB PO SCH ×2 (14:27→20:43)
--- NOTE | 2017-04-05 15:16 | PRG ---
DATE OF SERVICE: 04/05/2017 LOCATION: Room #6378. SUBJECTIVE: Mr. Rene Hernandez is doing well today. He is status post drainage of plantar abscess a nd removal of a wooden foreign body. Cultures of 04/02/2017 reveals Staphylococcus aureus and Entero coccus. Staphylococcus is sensitive to most everything except for the penicillins. Enterococcus is sensitive to VANCOMYCIN and PENICILLINS. The patient's wound VAC was applied today. The patient's M RI scan and plain x-rays were negative for bony involvement. At this point, I would recommend home w ound VAC and intravenous antibiotic administration with dialysis. This could be continued after rece iving vancomycin for 2 weeks and will speak to Dr. Dalal about prescribing that. He has outpatient wou nd care appointment with [facility] for wound VAC. In my opinion, [facility]. At this point, I will see as needed and we will follow to see him as an outpatient.
[2017-04-05] MEDS: HumaLOG 300 UNITS/3 ML VIAL SC PRN (18:54)
[2017-04-05] MEDS: cloNIDine 0.2 MG TAB PO SCH (20:43)
[2017-04-05] MEDS: Cephalexin 250 MG CAP PO SCH (20:43)
[2017-04-06] MEDS: Cephalexin 250 MG CAP PO SCH ×2 (09:00→21:52)
[2017-04-06] MEDS: cloNIDine 0.2 MG TAB PO SCH ×2 (09:00→21:53)
[2017-04-06] MEDS: Insulin Detemir 100 UNITS/ML 30 UNITS in Pre-Filled Syringe 1 EACH SC SCH ×2 (09:00→21:52)
[2017-04-06] MEDS: Heparin 5,000 UNITS/ML VIAL SC SCH ×2 (09:00→21:49)
[2017-04-06] MEDS: hydrALAZINE 25 MG TAB PO SCH ×3 (09:00→21:52)
--- NOTE | 2017-04-06 09:58 | PRG ---
DATE OF SERVICE: 04/06/2017 SUBJECTIVE: Mr. Hernandez is a 56-year-old male undergoing hemodialysis. I am at the bedside and supervising his dialysis. The patient has undergone debridement of his right foot. This was do ne by Dr. Wood. A foreign object was noted by Dr. Wood, this was removed. He is doing well. He has no new complaints. The patient denies any chest pain, shortness of breath. OBJECTIVE: VITAL SIGNS: Blood pressure is 109/57, heart rate 67, respiratory rate 20, temperature 98.1, and pul se ox 96%. GENERAL: Noted to be awake, alert, comfortable, not in distress. SKIN: Adequate turgor. HEENT: Slightly pale conjunctivae, anicteric sclerae. NECK: No neck mass, no carotid bruits. No JVD. CHEST: No deformities. LUNGS: Clear breath sounds. No wheezing, no crackles. HEART: Normal sinus rhythm. No murmur, no gallops, no rubs. ABDOMEN: Globular, soft, nontender, no masses. EXTREMITIES: No edema, no deformities. Positive for right foot dressing. MEDICATIONS: 04/06/2017 was reviewed. LABORATORY DATA: On 04/05/2017 - White count 8.9, hemoglobin 10. Sodium 136, potassium 4.1, chlorid e 96, carbon dioxide 30, BUN 32, creatinine 5.43, glucose 271, and calcium 8.5. ASSESSMENT AND PLAN: 1. Right foot infection, status post surgical debridement. Surgery is following. ID has also been consulted. 2. End-stage renal disease, stable. Tolerating current hemodialysis regimen. Continue fluid remova l as tolerated by the patient. No changes will be made with his dialysis regimen. 3. Anemia - The patient will be continuing on the weekly Epogen at 10,000 units subcutaneously every week.
--- NOTE | 2017-04-06 10:22 | PDOC.PN ---
- Subjective Encounter Start Date: 04/06/17 Encounter Start Time: 10:30 Subjective: Patient feeling fine. No N/V. No fever. Ready to go home. - Objective MAR Reviewed: Yes Vital Signs & Weight: Vital Signs (12 hours) Temp Pulse Resp BP Pulse Ox 04/06/17 04:35 98.1 F 67 20 109/57 L 96 Weight Admit Weight 252 lb Weight 252 lb I&O: 04/05/17 04/06/17 04/07/17 06:59 06:59 06:59 Intake Total 1020 510 Balance 1020 510 Result Diagrams: 04/05/17 05:12 04/05/17 05:11 Additional Labs: Accuchecks 04/06/17 04/05/17 04/05/17 06:40 20:36 15:44 POC Glucose 187 H 351 H 261 H Phys Exam - Physical Examination Constitutional: NAD HEENT: moist MMs Respiratory: no wheezing, no rales, no rhonchi Cardiovascular: RRR Gastrointestinal: soft, positive bowel sounds right foot wound dressed with wound vac and surgical shoe Psychiatric: normal affect, A&O x 3 Dx/Plan (1) Cellulitis and abscess of foot Code(s): L03.119 - CELLULITIS OF UNSPECIFIED PART OF LIMB; L02.619 - CUTANEOUS ABSCESS OF UNSPECIFIED FOOT Status: Acute Comment: no MRI evidence of osteomyelitis i&d done by surg on 04/04 Culture with MSSA and Enterococcus- switched to oral Keflex for 2 weeks, post surgical shoe, outpatient wound care (2) DM2 (diabetes mellitus, type 2) Status: Acute Qualifiers: Diabetes mellitus complication status: with diabetic arthropathy Diabetes mellitus complication detail: with neuropathic arthropathy Diabetes mellitus terminal make up operator insulin use: with terminal make up operator use Qualified Code(s): E11.618 - Type 2 diabetes mellitus with other diabetic arthropathy; Z79.4 - termite renewal inspector (current) use of insulin; Z79.4 - halfway (current) use of insulin; Z79.4 - halfway ( current) use of insulin; Z79.4 - termite renewal inspector (current) use of insulin (3) Diabetic neuropathic arthropathy Code(s): E11.610 - TYPE 2 DIABETES MELLITUS W DIABETIC NEUROPATHIC ARTHROPATHY Status: Chronic Comment: right foot charcot with neuropathic ulcer, cellulitis (4) ESRD (end stage renal disease) on dialysis Code(s): N18.6 - END STAGE RENAL DISEASE; Z99.2 - DEPENDENCE ON RENAL DIALYSIS Status: Chronic (5) HTN (hypertension) Code(s): I10 - ESSENTIAL (PRIMARY) HYPERTENSION Status: Chronic Qualifiers: Hypertension type: essential hypertension Qualified Code(s): I10 - Essential (primary) hypertension - Plan cont current plan of care, continue antibiotics, out of bed/ambulate * . - Discharge Day Encounter end time: 11:00
--- NOTE | 2017-04-06 21:45 | DIS ---
PRIMARY CARE PHYSICIAN: Keith. DIAGNOSES ON ADMISSION: 1. Sepsis. 2. End stage renal disease, on dialysis. 3. Diabetes mellitus. DISCHARGE DIAGNOSES: 1. Cellulitis and abscess of foot. 2. Diabetes mellitus type 2. 3. Diabetic neuropathic arthropathy. 4. End-stage renal disease, on dialysis. 5. Hypertension. PROCEDURES: 1. X-ray of the right foot showing linear foreign body to the plantar soft tissues in midfoot region , evidence of prior amputation of all digits, and plantar soft tissue swelling suggestive of signific ant cellulitis, unable to rule out osteomyelitis. 2. MRI of the right foot showing no evidence of osteomyelitis, just the extensive soft tissue change s and linear metallic densities within the soft tissues of the plantar aspect of the foot. 3. Incision and drainage of diabetic right foot plantar abscess with removal of foreign body along w ith pulse irrigation and washout. CONSULTATIONS: 1. Nephrology, Dr. Dalal. 2. General surgery, Dr. Wood. 3. Infectious Disease, Dr. Stearns. PERTINENT LABORATORY DATA: White blood cell count 14 on admission, down to 8.9 on the day of dischar ge. Bacterial culture of the foot showing moderate Staphylococcus aureus that is methicillin sensiti ve and a few Enterococcus species also sensitive to amoxicillin and cephalosporins. SUMMARY OF HOSPITAL COURSE: This is a 56-year-old male with known history of diabetes sanford beltre and end-stage renal disease, on dialysis. He came in for a fever of 102. The patient was admitt ed to the hospital. He was found to have an infected ulcer on his right foot where he had multiple a mputations before. Investigations were done as above. No osteomyelitis or ulcerations. Dr. Wood was consulted and discussed inpatient versus wound care and the patient opted for aggressive wound ca re. He had I&D with removal of some foreign bodies in the foot as well as cleaning out of the wound. The patient did have as above. Dr. Stearns was consulted for antibiotic recommendations and he recommended Keflex 500 mg for 2 weeks. The patient had outpatient wound care and is having outpatie nt wound VAC arranged. Once it is available, he will be discharged home later today. DISCHARGE MANAGEMENT: Discharged home. Follow up with wound care as an outpatient on 04/09/2017 at 1:30 p.m. at [facility] and follow up with Dr. Wood in 2-3 weeks. ACTIVITIES: As tolerated. Whenever he walks, he is to wear a post-surgical shoe. DIET: Diabetic renal diet. THERAPIES: To get outpatient wound care. DISCHARGE MEDICATIONS: 1. Keflex 500 mg twice a day for 14 days. 2. Resume home medication atorvastatin 20 mg at night. 3. Aspirin 81 mg daily. 4. Lantus 30 units subcu twice a day. 5. Humalog 10 units subcu 3 times a day. 6. Hydralazine 50 mg 3 times a day. 7. Clonidine 0.2 mg twice a day. 8. Renvela 800 mg 3 times a day. 9. Protonix 40 mg daily. 10. Trazodone 50 mg at night.
[2017-04-06] MEDS: HumaLOG 300 UNITS/3 ML VIAL SC PRN (21:49)
[2017-04-07] MEDS: hydrALAZINE 25 MG TAB PO SCH ×3 (09:26→21:52)
[2017-04-07] MEDS: cloNIDine 0.2 MG TAB PO SCH ×2 (09:26→21:53)
[2017-04-07] MEDS: Cephalexin 250 MG CAP PO SCH ×2 (09:26→21:52)
[2017-04-07] MEDS: Heparin 5,000 UNITS/ML VIAL SC SCH ×2 (09:28→21:52)
[2017-04-07] MEDS: Insulin Detemir 100 UNITS/ML 30 UNITS in Pre-Filled Syringe 1 EACH SC SCH ×2 (09:29→21:51)
[2017-04-07] MEDS: HumaLOG 300 UNITS/3 ML VIAL SC PRN (17:20)
[2017-04-08] MEDS: HumaLOG 300 UNITS/3 ML VIAL SC PRN ×4 (06:54→21:17)
[2017-04-08] MEDS: Insulin Detemir 100 UNITS/ML 30 UNITS in Pre-Filled Syringe 1 EACH SC SCH ×2 (09:46→21:16)
[2017-04-08] MEDS: Heparin 5,000 UNITS/ML VIAL SC SCH ×2 (09:46→21:15)
[2017-04-08] MEDS: hydrALAZINE 25 MG TAB PO SCH ×3 (09:47→21:16)
[2017-04-08] MEDS: cloNIDine 0.2 MG TAB PO SCH ×2 (09:47→21:16)
[2017-04-08] MEDS: Cephalexin 250 MG CAP PO SCH ×2 (09:47→21:15)
--- NOTE | 2017-04-09 08:46 | PRG ---
DATE OF SERVICE: 04/09/2017 SERVICE: Renal Medicine. SUBJECTIVE: The patient is currently undergoing dialysis. I am at the bedside supervising his dialy sis. He is doing well. He has no complaints. He denies any chest pain or shortness of breath. OBJECTIVE: VITAL SIGNS: Blood pressure is 144/66, heart rate 68, respiratory rate 15, temperature 98.1, pulse o x 98%. GENERAL: Noted to be awake, alert, supine, comfortable, not in distress. SKIN: Adequate turgor. HEENT: He has pinkish conjunctivae, anicteric sclerae. NECK: No neck mass, no carotid bruits, no JVD. CHEST: No deformities. LUNGS: Clear breath sounds. No wheezing, no crackles. HEART: Normal sinus rhythm. No murmur, no gallops or rubs. ABDOMEN: Globular, soft, nontender, no masses. EXTREMITIES: No edema, no deformities. He is positive for a right foot dressing. MEDICATIONS: Of 04/09/2017 was reviewed. LABORATORY DATA: Of 04/05/2017, hemoglobin 10, white count 8.9. On 04/09/2017, glucose 90. ASSESSMENT AND PLAN: 1. End-stage renal disease, stable. Tolerating current hemodialysis. We will plan for a 4-hour hem odialysis. Again, fluid removal only as tolerated. 2. Anemia - on weekly Epogen. 3. Status post right foot infection - patient is status post surgical debridement with Dr. Wood. Continue with current management.
[2017-04-09] MEDS: Cephalexin 250 MG CAP PO SCH ×2 (10:03→20:20)
[2017-04-09] MEDS: cloNIDine 0.2 MG TAB PO SCH ×2 (10:03→20:20)
[2017-04-09] MEDS: Insulin Detemir 100 UNITS/ML 30 UNITS in Pre-Filled Syringe 1 EACH SC SCH ×2 (10:03→20:21)
[2017-04-09] MEDS: Heparin 5,000 UNITS/ML VIAL SC SCH ×2 (10:03→20:20)
[2017-04-09] MEDS: hydrALAZINE 25 MG TAB PO SCH ×3 (10:03→20:21)
[2017-04-09] MEDS: HumaLOG 300 UNITS/3 ML VIAL SC PRN ×2 (17:45→20:22)
[2017-04-09] MEDS: Epoetin (ESRD) 10,000 UNITS/ML VIAL SC SCH (18:01)
[2017-04-10] MEDS: HumaLOG 300 UNITS/3 ML VIAL SC PRN ×2 (06:10→14:10)
[2017-04-10] MEDS: Insulin Detemir 100 UNITS/ML 30 UNITS in Pre-Filled Syringe 1 EACH SC SCH (08:20)
[2017-04-10] MEDS: cloNIDine 0.2 MG TAB PO SCH (08:21)
[2017-04-10] MEDS: hydrALAZINE 25 MG TAB PO SCH ×2 (08:21→15:44)
[2017-04-10] MEDS: Heparin 5,000 UNITS/ML VIAL SC SCH (08:21)
[2017-04-10] MEDS: Cephalexin 250 MG CAP PO SCH (08:21)
[2017-04-10 14:39] VITALS: BP 124/69; TEMP 98.6
== END 2017-04-10 18:27 | disposition home or self-care (01) | DRG 853 ==
LOC: ERS 19:37 → SURG B 22:00
PROVIDERS: ADMIT Internal Medicine; ATTEND Internal Medicine
PROC: 5A1D70Z Performance of Urinary Filtration, Intermittent, Less than 6 Hours Per Day (ICD-10-PCS; 2017-04-02)
PROC: 0J9Q0ZZ Drainage of Right Foot Subcutaneous Tissue and Fascia, Open Approach (ICD-10-PCS; principal; 2017-04-04)
PROC: 0JCQ0ZZ Extirpation of Matter from Right Foot Subcutaneous Tissue and Fascia, Open Approach (ICD-10-PCS; 2017-04-04)
DX: A41.9 Sepsis, unspecified organism (principal); N18.6 End stage renal disease; I12.0 Hypertensive chronic kidney disease with stage 5 chronic kidney disease or end stage renal disease; E11.22 Type 2 diabetes mellitus with diabetic chronic kidney disease; L03.115 Cellulitis of right lower limb; L97.418 Non-pressure chronic ulcer of right heel and midfoot with other specified severity; L02.611 Cutaneous abscess of right foot; E11.51 Type 2 diabetes mellitus with diabetic peripheral angiopathy without gangrene; E11.628 Type 2 diabetes mellitus with other skin complications; E11.621 Type 2 diabetes mellitus with foot ulcer; Z79.4 Long term (current) use of insulin; E11.610 Type 2 diabetes mellitus with diabetic neuropathic arthropathy; Z99.2 Dependence on renal dialysis; G40.909 Epilepsy, unspecified, not intractable, without status epilepticus; Z86.73 Personal history of transient ischemic attack (TIA), and cerebral infarction without residual deficits; D64.9 Anemia, unspecified; S91.321A Laceration with foreign body, right foot, initial encounter; Z89.411 Acquired absence of right great toe; Z89.421 Acquired absence of other right toe(s); E66.9 Obesity, unspecified; Z68.39 Body mass index [BMI] 39.0-39.9, adult
CPT/HCPCS: 36415; 36416; 51701; 71010; 80048; 80053; 80202; 81003; 81015; 83605; 83735; 85025; 87040; 87070; 87077; 87086; 87186; 87205; 87340; 90935; 96365; 96375; A4216; G0257; J1644; J1815; J1885; J2001; J2250; J2543; J2704; J3010; J3370; J7050; Q4081

== ENCOUNTER 2017-04-12 10:39 | Outpatient (CLI) | payer MEDICARE ==
--- NOTE | 2017-04-12 16:02 | PRG ---
DATE OF SERVICE: 04/12/2017 HISTORY: Mr. Rene Hernandez is a very pleasant 56-year-old gentleman who presents to the Wound C enter for evaluation of a wound of the plantar surface of the right foot subsequent to incision and d rainage of a diabetic right foot plantar abscess with removal of foreign body on 04/04/2017. Negativ e pressure therapy was initiated subsequent to surgery, and upon discharge from [facility], the patient was referred to the Wound Center for assistance with dressing changes of th e wound VAC. The patient was discharged to home on Keflex 500 mg p.o. b.i.d. for 14 days. The patie nt's medical history is significant for diabetes mellitus, hypertension, peripheral vascular disease, seizure disorder, multiple TIAs, multiple CVAs, decreased left ventricular systolic function, end-st age renal disease, lower gastrointestinal bleeding, and anemia of renal disease. PHYSICAL EXAMINATION: VITAL SIGNS: Temperature 97.8, pulse 69, respirations 17, and blood pressure 108/53. Accu-Chek 379. EXTREMITIES: A wound of the plantar surface of the right foot is present which measures approximatel y 2.0 x 5.2 cm. The wound is granulating. Necrotic and nonviable tissue present within the wound ma rgins was debrided with an excisional full-thickness debridement with the use of scissors and a curet te. No purulent drainage is associated with the wound. No erythema of the skin surrounding the woun d is present. No maceration of the skin of the periwound is noted. A dorsalis pedis pulse is palpab le on the right. Mild to moderate edema of the right foot is present on exam today. ASSESSMENT AND PLAN: 1. Wound of plantar surface of right foot subsequent to incision and drainage of a diabetic right fo ot plantar abscess with removal of foreign body. The patient underwent the preceding procedure on by Dr. Sam Wood. Negative pressure therapy was initiated subsequent to surgery and wi ll be continued with dressing changes of the wound VAC here in the Wound Center. The patient will be seen by Dr. Wood in 1 week. I will see Mr. Hernandez again in 3-4 weeks. The patient has been sonja nded to continue Keflex as prescribed at the time of discharge. 2. Diabetes mellitus. The patient's Accu-Chek in clinic today is 379. The patient has been told th at for optimal wound healing, his blood glucoses should remain below 150. 3. Hypertension. 4. Peripheral vascular disease. 5. Seizure disorder. 6. Multiple TIAs. 7. Multiple cerebrovascular accidents. 8. Decreased left ventricular systolic function. 9. End-stage renal disease. 10. Lower gastrointestinal bleeding. 11. Anemia of renal disease.
[2017-04-12] MEDS ORDERED: Sodium Chloride 0.9% 15 ML NEB ONE (17:54)
== END 2017-04-12 10:40 | disposition home or self-care (01) ==
LOC: WCC 10:39
PROVIDERS: ATTEND Family Medicine
DX: E11.621 Type 2 diabetes mellitus with foot ulcer (principal); L97.429 Non-pressure chronic ulcer of left heel and midfoot with unspecified severity; I73.9 Peripheral vascular disease, unspecified; G40.909 Epilepsy, unspecified, not intractable, without status epilepticus; G45.9 Transient cerebral ischemic attack, unspecified; I63.9 Cerebral infarction, unspecified; I13.2 Hypertensive heart and chronic kidney disease with heart failure and with stage 5 chronic kidney disease, or end stage renal disease; I50.1 Left ventricular failure, unspecified; N18.6 End stage renal disease; K92.2 Gastrointestinal hemorrhage, unspecified; D63.1 Anemia in chronic kidney disease
CPT/HCPCS: 11042; 82962; 97139; G0463; 36416; 99213; A4218

== ENCOUNTER 2017-04-16 13:42 | Outpatient (CLI) | payer MEDICARE ==
[2017-04-16] MEDS ORDERED: Sodium Chloride 0.9% 15 ML NEB ONE (17:06)
== END 2017-04-16 13:43 | disposition home or self-care (01) ==
LOC: WCC 13:42
PROVIDERS: ATTEND Family Medicine
DX: T81.89XD Other complications of procedures, not elsewhere classified, subsequent encounter (principal)
CPT/HCPCS: 97605; A4218

== ENCOUNTER 2017-04-19 13:36 | Outpatient (CLI) | payer MEDICARE ==
[2017-04-19] MEDS ORDERED: Sodium Chloride 0.9% 15 ML NEB ONE (21:23)
== END 2017-04-19 13:37 | disposition home or self-care (01) ==
LOC: WCC 13:36
PROVIDERS: ATTEND Family Medicine
DX: T81.89XD Other complications of procedures, not elsewhere classified, subsequent encounter (principal)
CPT/HCPCS: 97605; A4218

== ENCOUNTER 2017-04-24 11:22 | Outpatient (CLI) | payer MEDICARE ==
[2017-04-24] MEDS ORDERED: Sodium Chloride 0.9% 15 ML NEB ONE (14:36)
== END 2017-04-24 11:23 | disposition home or self-care (01) ==
LOC: WCC 11:22
PROVIDERS: ATTEND Family Medicine
DX: T81.89XD Other complications of procedures, not elsewhere classified, subsequent encounter (principal)
CPT/HCPCS: 97605; A4218

== ENCOUNTER 2017-04-26 11:04 | Outpatient (CLI) | payer MEDICARE ==
[2017-04-26] MEDS ORDERED: Sodium Chloride 0.9% 15 ML NEB ONE (13:36)
== END 2017-04-26 11:05 | disposition home or self-care (01) ==
LOC: WCC 11:04
PROVIDERS: ATTEND Family Medicine
DX: T81.89XD Other complications of procedures, not elsewhere classified, subsequent encounter (principal)
CPT/HCPCS: 97605; A4218

== ENCOUNTER 2017-05-03 11:12 | Outpatient (CLI) | payer MEDICARE | END 2017-05-03 11:13 | disposition home or self-care (01) | LOC: WCC 11:12 | PROVIDERS: ATTEND Family Medicine | DX: T81.89XD Other complications of procedures, not elsewhere classified, subsequent encounter (principal) | CPT/HCPCS: 97606 ==

== ENCOUNTER 2017-05-10 09:55 | Outpatient (CLI) | payer MEDICARE ==
--- NOTE | 2017-05-10 11:51 | PRG ---
DATE OF SERVICE: 05/10/2017 HISTORY: Mr. Rene Hernandez is a very pleasant 56-year-old gentleman who presents to the Wound Ce nter for evaluation of a wound of the plantar surface of the right foot subsequent to incision and dr jordan of a diabetic right foot plantar abscess with removal of the foreign body on 04/04/2017. Nega tive pressure therapy was initiated subsequent to surgery, and upon discharge from [facility], the patient was referred to the Wound Center for assistance with dressing changes of the wound VAC. The patient was discharged to home on Keflex 500 mg p.o. b.i.d. for 14 days. The rnadell kingsley's medical history is significant for diabetes mellitus, hypertension, peripheral vascular disea se, seizure disorder, multiple TIAs, multiple CVAs, decreased left ventricular systolic function, end -stage renal disease, lower gastrointestinal bleeding and anemia of renal disease. PHYSICAL EXAMINATION: VITAL SIGNS: Temperature 98.1, pulse 80, respirations 18, blood pressure 168/74. Accu-Chek 120. EXTREMITIES: A wound of the plantar surface of the right foot is present, which measures approximate ly 2.7 x 2.6 cm. The dimensions of the wound at the time of the patient's visit on 04/12/2017 were a pproximately 2.0 x 5.2 cm. The wound is granulating. Necrotic and nonviable tissue present within t he wound margins was debrided with an excisional full-thickness debridement with the use of scissors and a curette. No purulent drainage is associated with the wound. No erythema of the skin surroundi ng the wound is present. Maceration of the skin of the periwound is noted. Mild to moderate edema o f the right foot is present on exam today. ASSESSMENT AND PLAN: 1. Wound of plantar surface of right foot subsequent to incision and drainage of a diabetic right fo ot plantar abscess with removal of the foreign body. The patient underwent the preceding procedure o n 04/04/[address] Sam Wood. Negative pressure therapy was initiated subsequent to surgery an d will be continued with dressing changes of the wound VAC here in the Wound Center. The patient oliver l be seen by Dr. Wood in 1 week. I will see Mr. Hernandez again in two weeks. 2. Diabetes mellitus. The patient's Accu-Chek in clinic today is 120. The patient has been reminde d that for optimal wound healing, his blood glucoses should remain below 150. 3. Hypertension. 4. Peripheral vascular disease. 5. Seizure disorder. 6. Multiple transient ischemic attacks. 7. Multiple cerebrovascular accidents. 8. Decreased left ventricular systolic function. 9. End-stage renal disease. 10. Lower gastrointestinal bleeding. 11. Anemia of renal disease.
== END 2017-05-10 09:56 | disposition home or self-care (01) ==
LOC: WCC 09:55
PROVIDERS: ATTEND Family Medicine
DX: E11.621 Type 2 diabetes mellitus with foot ulcer (principal); L97.519 Non-pressure chronic ulcer of other part of right foot with unspecified severity; L02.611 Cutaneous abscess of right foot; E11.51 Type 2 diabetes mellitus with diabetic peripheral angiopathy without gangrene; G40.909 Epilepsy, unspecified, not intractable, without status epilepticus; G45.9 Transient cerebral ischemic attack, unspecified; I63.9 Cerebral infarction, unspecified; E11.22 Type 2 diabetes mellitus with diabetic chronic kidney disease; I12.0 Hypertensive chronic kidney disease with stage 5 chronic kidney disease or end stage renal disease; N18.6 End stage renal disease; K92.2 Gastrointestinal hemorrhage, unspecified; D63.1 Anemia in chronic kidney disease; I51.89 Other ill-defined heart diseases
CPT/HCPCS: 11042

== ENCOUNTER 2017-05-14 13:22 | Outpatient (CLI) | payer MEDICARE | END 2017-05-14 13:23 | disposition home or self-care (01) | LOC: WCC 13:22 | PROVIDERS: ATTEND Family Medicine | DX: T81.89XD Other complications of procedures, not elsewhere classified, subsequent encounter (principal) | CPT/HCPCS: 97605 ==

== ENCOUNTER 2017-05-17 13:21 | Outpatient (CLI) | payer MEDICARE | END 2017-05-17 13:22 | disposition home or self-care (01) | LOC: WCC 13:21 | PROVIDERS: ATTEND Family Medicine | DX: T81.89XD Other complications of procedures, not elsewhere classified, subsequent encounter (principal) | CPT/HCPCS: 97605 ==

== ENCOUNTER 2017-05-21 13:28 | Outpatient (CLI) | payer MEDICARE | END 2017-05-21 13:29 | disposition home or self-care (01) | LOC: WCC 13:28 | PROVIDERS: ATTEND Family Medicine | DX: T81.89XD Other complications of procedures, not elsewhere classified, subsequent encounter (principal) | CPT/HCPCS: 97605 ==

== ENCOUNTER 2017-05-24 13:22 | Outpatient (CLI) | payer MEDICARE ==
--- NOTE | 2017-05-24 14:58 | PRG ---
DATE OF SERVICE: 05/24/2017 HISTORY: Mr. Rene Hernandez is a very pleasant 56-year-old gentleman, who presents to the Wound C enter for evaluation of a wound of the plantar surface of the right foot subsequent to incision and d rainage of a diabetic right foot plantar abscess with removal of the foreign body on 04/04/2017. Neg ative pressure therapy was initiated subsequent to surgery, and upon discharge from [facility], the patient was referred to the Wound Center for assistance with dressing changes o f the wound VAC. The patient was discharged to home on Keflex 500 mg p.o. b.i.d. x14 days. PHYSICAL EXAMINATION: VITAL SIGNS: Temperature 98.2, pulse 86, respirations 19, blood pressure 145/67. Accu-Chek 150. EXTREMITIES: A wound of the plantar surface of the right foot is present, which measures approximate ly 2.4 x 1.9 cm. The dimensions of the wound at the time of the patient's visit on 05/10/2017 were a pproximately 2.7 x 2.6 cm. The wound is granulating. Necrotic and nonviable tissue present within t he wound margins was debrided with an excisional full-thickness debridement with the use of scissors and a curette. No purulent drainage is associated with the wound. No erythema of the skin surroundi ng the wound is present. Maceration of the skin of the periwound is noted. A dorsalis pedis pulse i s palpable on the right. No significant edema of the right foot is present on exam today. ASSESSMENT AND PLAN: 1. Wound of plantar surface of right foot subsequent to incision and drainage of a diabetic right fo ot plantar abscess with removal of the foreign body. The patient underwent the preceding procedure o n 04/04/[address] Sam Wood. Negative pressure therapy was initiated subsequent to surgery an d will be continued with dressing changes of the wound VAC here in the Wound Center. The patient oliver l be seen by Dr. Wood in 1 week. I will see Mr. Hernandez again in 2 weeks. 2. Diabetes mellitus. The patient's Accu-Chek in clinic today is 150. The patient has been reminde d that for optimal wound healing, his blood glucoses should remain below 150. 3. Hypertension. 4. Peripheral vascular disease. 5. Seizure disorder. 6. Multiple transient ischemic attacks. 7. Multiple cerebrovascular accidents. 8. Decreased left ventricular systolic function. 9. End-stage renal disease. 10. Lower gastrointestinal bleeding. 11. Anemia of renal disease.
[2017-05-25] MEDS ORDERED: Sodium Chloride 0.9% 15 ML NEB ONE (15:44)
== END 2017-05-24 13:23 | disposition home or self-care (01) ==
LOC: WCC 13:22
PROVIDERS: ATTEND Family Medicine
DX: E11.22 Type 2 diabetes mellitus with diabetic chronic kidney disease (principal); T81.89XD Other complications of procedures, not elsewhere classified, subsequent encounter; I12.0 Hypertensive chronic kidney disease with stage 5 chronic kidney disease or end stage renal disease; N18.6 End stage renal disease; D63.1 Anemia in chronic kidney disease; K92.2 Gastrointestinal hemorrhage, unspecified; I73.9 Peripheral vascular disease, unspecified; G40.909 Epilepsy, unspecified, not intractable, without status epilepticus; I63.9 Cerebral infarction, unspecified
CPT/HCPCS: 11042

== ENCOUNTER 2017-05-28 15:09 | Outpatient (CLI) | payer MEDICARE ==
[2017-05-28] MEDS ORDERED: Sodium Chloride 0.9% 15 ML NEB ONE (16:58)
== END 2017-05-28 15:10 | disposition home or self-care (01) ==
LOC: WCC 15:09
PROVIDERS: ATTEND Family Medicine
DX: T81.89XD Other complications of procedures, not elsewhere classified, subsequent encounter (principal)
CPT/HCPCS: 97605; A4218

== ENCOUNTER 2017-06-17 21:03 | Emergency (ER) | payer MEDICARE | END 2017-06-17 22:20 | disposition home or self-care (01) | LOC: ERS 21:03 | DX: S90.422A Blister (nonthermal), left great toe, initial encounter (principal); S90.425A Blister (nonthermal), left lesser toe(s), initial encounter; E11.9 Type 2 diabetes mellitus without complications; Z86.73 Personal history of transient ischemic attack (TIA), and cerebral infarction without residual deficits; X58.XXXA Exposure to other specified factors, initial encounter | CPT/HCPCS: 99283 ==

== ENCOUNTER 2017-07-26 16:38 | Inpatient (IN) | payer MEDICARE ==
[~2017-07-26 16:38] MED LIST: ISOVUE-370 76%-LOCM 1 ML ONE
[2017-07-26 16:58] LABS: #Basophils 0.1 thou/uL (0.0-0.2); #Eosinphils 0.3 thou/uL (0.0-0.7); #Lymphocytes 2.1 thou/uL (1.20-3.40); #Monocytes 0.7 thou/uL (0.11-0.59); #Neutrophils 7.3 thou/uL (1.40-6.50); %Basophils 0.5 % (0.0-1.0); %Eosinophils 2.5 % (0.0-10.0); %Lymphocytes 19.9 % (21.0-51.0); %Monocytes 6.5 % (0.0-10.0); %Neutrophils 70.5 % (42.0-75.0); Hemoglobin 11.1 g/dL (14.0-18.0); Mean Corpuscular HGB CONC 33.7 g/dL (32.0-36.0); Mean Corpuscular Hemoglobin 31.4 pg (27.0-31.0); Mean Corpuscular Volume 93.1 fl (80.0-94.0); Mean Platelet Volume 7.2 fL (7.4-10.4); Platelet Count 188 thou/uL (130-400); RBC Distribution Width 13.8 % (11.5-14.5); Red Blood Cell (RBC) Count 3.53 mill/uL (4.70-6.10); White Blood Cell (WBC) Count 10.3 thou/uL (4.8-10.8)
[2017-07-26 17:06] LABS: PTT 30.9 SEC (22.9-36.1); Prothrombin Time 13.5 SEC (12.0-14.7)
[2017-07-26 17:10] LABS: ALT (SGPT) 13 U/L (8-55); AST (SGOT) 13 U/L (5-34); Albumin 3.9 g/dL (3.5-5.0); Alkaline Phosphatase 184 U/L (40-150); Anion Gap 15 mmol/L (10-20); BUN (Urea Nitrogen) 44 mg/dL (8.4-25.7); Bilirubin, Total 0.3 mg/dL (0.2-1.2); Calc. Creatinine Clearance 0 mL/min (70-130); Calcium 9.2 mg/dL (7.8-10.44); Carbon Dioxide 27 mmol/L (22-29); Chloride 95 mmol/L (98-107); Estimated GFR-MDRD 10; Globulin 3.6 g/dL (2.4-3.5); Glucose 405 mg/dL (70-105); Potassium 4.2 mmol/L (3.5-5.1); Protein, Total 7.5 g/dL (6.0-8.3); Sodium 133 mmol/L (136-145)
[2017-07-26 17:15] LABS: CKMB 1.4 ng/mL (0-6.6)
--- NOTE | 2017-07-26 17:54 | CT ---
HEAD CT NONCONTRAST 07/26/17 INDICATION: Stroke, emergency exam with acute onset altered mental status. Focal neurologic deficit is not provid ed on the indication of the exam. FINDINGS: Redemonstration of left cerebellar hemispheric encephalomalacia. There is mild chronic microvascular ischemic disease. Focal region of ex vacuo dilatation involving the body of the right lateral ventric le is stable. No intracranial hemorrhage, mass effect or midline shift. IMPRESSION: No evidence of intracranial hemorrhage or mass effect. Prominent sized region of encephalomalacia involving the left cerebellar hemisphere. Mild chronic microvascular ischemic disease is redemonstrated. Associated punctate calcific density o f the right centrum semiovale remains. ER physician, Ivania Herman telephoned of the findings at the time of dictation, 1651 hours, . Code CR POS: [id number]
--- NOTE | 2017-07-26 18:50 | RAD ---
SINGLE VIEW OF THE CHEST: 07/26/17 COMPARISON: 04/01/17 HISTORY: CVA 10 days ago with change in symptoms today. Altered mental status. k FINDINGS: Single view of the chest shows a normal sized cardiomediastinal silhouette. There is no evidence of c onsolidation, mass, or pleural effusion. The bones are unremarkable. IMPRESSION: No evidence of acute cardiopulmonary disease. POS: [facility]
[2017-07-26 19:47] LABS: Troponin I 0.015 ng/mL (< 0.028)
--- NOTE | 2017-07-26 20:10 | CT ---
CTA OF THE NECK WITH CONTRAST CTA OF THE HEAD WITH CONTRAST CT PERFUSION 07/26/17 HISTORY: 57-year-old male with altered mental status. TECHNIQUE: 1. Multiple contiguous axial images were obtained in a CTA of the neck with contrast. Coronal re formats were performed. 2. Multiple contiguous axial images were obtained in a CTA of the head with contrast. Sagittal a nd coronal reformats were performed. 3. A CT perfusion was performed. FINDINGS: CTA NECK: No lymphadenopathy is seen in the neck. Degenerative changes are seen in the spine. No mass is seen i n the neck. The visualized lung apices are unremarkable. The common carotid arteries have a normal origin from the aortic arch. Mild atherosclerotic disease is seen in the aorta. Minimal atherosclerotic disease is seen in the bilateral internal carotid arter ies with less than 10% stenosis bilaterally per NASCET criteria. The external carotid arteries are pa tent. The cervical vertebral arteries are normal in appearance without atherosclerotic disease. CTA HEAD: There is moderate diffuse nonfocal atherosclerotic disease in the cavernous portion of both internal carotid arteries. The intracranial internal carotid arteries are normal in appearance and branch into a normal appearing anterior and middle cerebral arteries. There is no evidence of focal stenosis, oc clusion or aneurysmal dilatation in the anterior circulation. The possible hyperdense branch of an MC A and the Sylvian fissure on the right opacifies normally with contrast and most likely artifactual o n CT. The intracranial vertebral arteries are normal in appearance and form a normal appearing basilar michael ry. The posterior cerebral arteries and cerebellar arteries are patent. There is no evidence of aneur ysmal dilatation, focal stenosis or occlusion in the posterior circulation. Cerebral blood volume, blood flow, and mean transit time are symmetric bilaterally without significan t asymmetry. IMPRESSION: 1. No significant CTA neck abnormality. 2. No significant intracranial vascular abnormality. 3. Normal cerebral perfusion. Dr. Herman notified of the findings at 5:24 p.m. on 07/26/17. POS: [facility]
[2017-07-26] MEDS ORDERED: Ondansetron HCl/PF 4 MG/2 ML Vial IVP PRN (22:38)
[2017-07-26] MEDS ORDERED: Ondansetron ODT 4 MG TAB SL PRN (22:38)
[2017-07-26 23:34] LABS: Troponin I 0.018 ng/mL (< 0.028)
[2017-07-27 04:57] LABS: Cardiac Risk 7.2 (Less than 4.5)
[2017-07-27] MEDS ORDERED: Insulin Regular 300 UNITS/3 ML VIAL SC PRN (09:28)
[2017-07-27] MEDS ORDERED: Dextrose 5% in Water 1,000 ML IV PRN (09:28)
[2017-07-27] MEDS ORDERED: Acetaminophen 325 MG TAB PO PRN (09:28)
[2017-07-27] MEDS ORDERED: Senokot 8.6 MG TAB PO PRN (09:28)
[2017-07-27] MEDS ORDERED: Dextrose 50% Abboject 50 ML SYRINGE SLOW IVP PRN (09:28)
[2017-07-27] MEDS ORDERED: Calcium Carbonate 500 MG ChewTAB PO PRN (09:51)
[2017-07-27] MEDS ORDERED: hydrALAZINE 20 MG/ML VIAL SLOW IVP PRN (10:14)
[2017-07-27 10:34] VITALS: BMI 39.9
--- NOTE | 2017-07-27 10:51 | HP ---
DATE OF ADMISSION: 07/26/2017 Please note that this was a left over from last night. PRIMARY CARE PHYSICIAN: Keith Frost, Dr. Alston. PRIMARY VIBRATING SCREED OPERATOR: Dr. Dalal. CHIEF COMPLAINT: Altered mentation. HISTORY OF PRESENT ILLNESS: Patient is a 57-year-old male with end-stage renal disease on hemodialysis, diabetes mellitus type 2, and hypertension who presented to the emergency room with altered mentation. At this time, patient is alert, awake, oriented x3, and having his breakfast. History obtained from the patient. No family at the bedside. Yesterday afternoon while he was at home, he had an episode of chest pain. He was in the bathroom at this time. He also had left arm pain along with nausea and two episodes of vomiting. He felt lightheaded and dizzy. He denies any palpitations, lightheadedness or syncope. He then called his , who walked him to the couch. He does not remember anything after that. He denies any double vision, blurring of vision, facial asymmetry, tongue biting or urinary or bladder incontinence. No fever or chills reported. In the emergency room, initial vital signs showed temperature 97.5, respirations 14, pulse rate of 86, blood pressure of 183/80 with O2 saturation 97% on room air. His NIH score in the emergency room was 34. His EKG showed sinus rhythm with first degree AV block with incomplete left bundle-branch block. Troponins were negative. His blood sugar at that time was 405. PAST MEDICAL HISTORY: 1. End-stage renal disease on hemodialysis. 2. Diabetes mellitus type 2 with retinopathy, neuropathy and nephropathy. 3. Hypertension. 4. History of TIA and strokes in the past with residual left-sided weakness. 5. Dyslipidemia. 6. History of hemorrhagic cerebrovascular accident in 2005. PAST SURGICAL HISTORY: 1. Multiple dialysis access. 2. Cholecystectomy. 3. Tonsillectomy. 4. Right foot transmetatarsal amputation. 5. Third left toe partial digit amputation. ALLERGIES: No known drug allergies. CURRENT HOME MEDICATIONS: Aspirin 81 mg daily, Lantus 30 units subcu b.i.d. The patient is unable to recall any other home medications. SOCIAL HISTORY: Patient currently lives at home with his . He is a former smoker. No alcohol or drug use. Ambulates with the help of a walker and cane. FAMILY HISTORY: Father at age of 76 with colon cancer. REVIEW OF SYSTEMS: The following complete review of systems was negative, unless otherwise mentioned in the HPI or below: Constitutional: Weight loss or gain, ability to conduct usual activities. Skin: Rash, itching. Eyes: Double vision, pain. ENT/Mouth: Nose bleeding, neck stiffness, pain, tenderness. Cardiovascular: Palpitations, dyspnea on exertion, orthopnea. Respiratory: Shortness of breath, wheezing, cough, hemoptysis, fever or night sweats. Gastrointestinal: Poor appetite, abdominal pain, heartburn, nausea, vomiting, constipation, or diarrhea. Genitourinary: Urgency, frequency, dysuria, nocturia. Musculoskeletal: Pain, swelling. Neurologic/Psychiatric: Anxiety, depression. Allergy/Immunologic: Skin rash, bleeding tendency. PHYSICAL EXAMINATION: VITAL SIGNS: As discussed above. GENERAL: A 57-year-old male in no apparent distress. HEENT: Head is atraumatic, normocephalic. Sclerae are anicteric. Moist mucous membrane, no oral lesion. NECK: Supple, no JVD appreciated. No carotid bruit. LUNGS: Clear to auscultation bilaterally, no wheezing, rales or rhonchi. HEART: S1, S2 present. Regular rate and rhythm. No rubs or gallops appreciated. No significant murmurs. ABDOMEN: Soft, nontender, bowel sounds present. EXTREMITIES: No edema or calf tenderness. NEUROLOGIC: Cranial nerves II-XII were normal on examination. Power was 5/5 in right upper and right lower extremity. Patient has chronic weakness in left upper and left lower extremity around 2-3/5. No new sensory deficit noted. Vovwqq-oy-zcin test was normal on the right. Tone was normal on the right. PSYCHIATRY: Alert, awake, oriented x3. SKIN: Warm and dry. LYMPH NODES: No palpable lymph nodes in the neck. PERIPHERAL VASCULAR: Radial pulses palpable bilaterally. MUSCULOSKELETAL: No joint swelling or tenderness. LABORATORY FINDINGS: CBC showed WBC 10.3 with hemoglobin 11.1, hematocrit 32.9 , platelets of 188. PT, INR, PTT normal range. Chemistries showed sodium 133, potassium 4.2, chloride 95, bicarbonate 27, BUN 44, creatinine 5.8, glucose 405. Troponin in the normal range. Chest x-ray by my review was negative for infiltrate. CTA of the head and neck was essentially negative. EKG by my review as discussed above. IMPRESSION: 1. Left arm/chest pain associated with nausea and two episodes of vomiting and lightheadedness, dizziness followed by altered mentation. Probably due to unstable angina with cardiogenic syncope versus transient ischemic attack. 2. Negative Cardiolite stress test in 10/2015. 3. Normal left ventricular ejection fraction in 05/2015. 4. End-stage renal disease, on hemodialysis. 5. Hypertension. 6. Diabetes mellitus type 2 with retinopathy, neuropathy and nephropathy. 7. Dyslipidemia. 8. History of hemorrhagic cerebrovascular accident in 2005. 9. History of transient ischemic attacks and ischemic stroke with residual left -sided weakness. 10. Depression. PLAN: The patient will be monitored in the stroke unit. We will obtain an MRI of the brain. We will repeat echocardiogram. We will consult Neurology and Cardiology. Dialysis management per Dr. Dalal. We will continue low dose aspirin. Please note that patient has history of hemorrhagic cerebrovascular accident in the past. We will resume selected home medications once verified with the family. NPO. Plan of care was discussed with the patient in detail. He stated understanding. MTDD
--- NOTE | 2017-07-27 11:35 | MRI ---
MRI OF THE BRAIN WITHOUT CONTRAST: Comparison: 06-24-15 History: Stroke, altered mental status. Technique: Multiplanar, multisequence MRI images were obtained of the brain without contrast. FINDINGS: There are scattered foci of high T2/FLAIR signal in the subcortical and periventricular white matter, likely secondary to small vessel ischemic disease. There are stable areas of susceptibility artifact along the posterior horn of the right lateral ventricle which may represent a small amount of hemosi niko deposition from prior hemorrhage or hemorrhagic infarction. There is encephalomalacia in the le ft cerebellar hemisphere which is stable. There is no restricted diffusion seen to suggest acute infa rction. There is a new small area measuring 6 mm in size in the right cerebellar hemisphere adjacent to the fourth ventricle which represents an area of interval hemosiderin deposition and was not seen on the prior exam. The expected flow voids are present. The corpus callosum, pituitary, and craniocervical junction are unremarkable. The calvarium and overlying soft tissues are unremarkable. The visualized paranasal sinuses and masto id air cells are well aerated. IMPRESSION: 1. No evidence of acute intracranial abnormality. 2. Small vessel ischemic disease. 3. Stable left cerebellar encephalomalacia. 4. Stable hemosiderin deposition along the posterior horn of the right lateral ventricle. 5. Small new area of hemosiderin area of deposition adjacent to the fourth ventricle along the right cerebellar hemisphere. POS: [facility]
[2017-07-27] MEDS ORDERED: Aspirin 81 mg Enteric Coated Tablet PO SCH (11:45)
[2017-07-27] MEDS ORDERED: Insulin Detemir 100 UNITS/ML 15 UNITS in Pre-Filled Syringe 1 EACH SC SCH (11:45)
--- NOTE | 2017-07-27 13:28 | CON ---
DATE OF CONSULTATION: 07/27/2017 REFERRING PROVIDER: Dr. Joe Puckett. REASON FOR CONSULTATION: TIA. HISTORY OF PRESENT ILLNESS: Mr. Hernandez is a pleasant 57-year-old male, who has been consu lted for evaluation of TIA. The patient reports that he has a history of stroke x3. His last stroke was in 2005. He has also had 4 TIAs since 2006 until now. He is currently taking aspirin 81 mg anat ly for secondary stroke prevention. He used to be on Plavix, but he had to discontinue as he develop ed a bleeding secondary to Plavix. He states that yesterday afternoon he was at home and had sudden onset of chest pain. He also started having pain radiating to the left upper extremity. He became n auseous and vomited twice. He felt lightheaded and dizzy. This prompted them to present to the [facility]. On arrival, he had an EKG done, which showed sinus rhythm with a first-degree AV block with incomplete left bundle branch block and his blood sugar was noted to be 4/5. Currentl y, he reports of feeling better than his admission time. He denies any headache, chest pain, palpita tion, numbness, tingling, or weakness. He has a left-sided weakness from his prior stroke and uses a walker for support at home. PAST MEDICAL HISTORY: Significant for hypertension, diabetes, end-stage renal disease, TIA, history of stroke, dyslipidemia, and history of hemorrhagic stroke in 2006. PAST SURGICAL HISTORY: Significant for multiple dialysis access, cholecystectomy, tonsillectomy, rig ht foot transmetatarsal amputation, third left toe partial digit amputation. CURRENT MEDICATIONS: Please review MAR. ALLERGIES: No known drug allergies. SOCIAL HISTORY: He denies smoking, alcohol use, or illicit drug use. He is a former smoker. He is . FAMILY HISTORY: Noncontributory. REVIEW OF SYSTEMS: As mentioned in HPI, otherwise negative. PHYSICAL EXAMINATION: VITAL SIGNS: Blood pressure of 152/75, pulse of 77, temperature of 98.6, respirations of 15, O2 sats of 95% on room air. GENERAL: A well-developed, well-nourished male, in no apparent distress. RESPIRATORY: Clear to auscultation bilaterally. CARDIOVASCULAR: Regular rate and rhythm. NEUROLOGIC: Mental status: The patient is awake, alert, oriented x3. Speech and language: Fluent speech. Cranial nerves: Pupils are 3 mm and reactive. Visual bauman are intact. External muscles are intact. No nystagmus noted. Face is symmetric. Tongue midline. Motor exam showed normal tone and bulk with a 5/5 strength in the right upper and right lower extremity and 4/5 strength in the lef t upper and left lower extremity. He has a pronator drift on the left upper and left lower extremity . Sensation is diminished in both upper and lower extremities in distal to proximal gradient. Deep tendon reflexes hyperreflexic in both upper and lower extremities. Babinski: Plantar responses equi vocal bilaterally. LABORATORY DATA: Labs are reviewed, which included CBC and CMP, which is significant for hemoglobin of 11.1, hematocrit 32.9, sodium 133, BUN of 44, creatinine of 5.88, glucose of 405 on admission. Al kaline phosphatase of 184, total cholesterol 158, LDL of 89, HDL of 22, triglycerides of 235, otherwi se unremarkable. IMAGING STUDIES: MRI brain without contrast was reviewed, which showed no acute intracranial abnorma lity. CT angiogram of the head and neck with his CT perfusion scan were reviewed, which showed no in tracranial or extracranial vascular abnormality. CT perfusion scan showed no sign of ischemia. IMPRESSION: 1. Transient ischemic attack. 2. Chest pain. 3. Hypertension. 4. Diabetes. ASSESSMENT AND PLAN: Mr. Hernandez is a pleasant 57-year-old male with multiple medical prob lems, who presented with an acute onset of left-sided chest pain with pain radiating to the left arm, followed by nausea, vomiting, lightheadedness, and dizziness. I have reviewed his MRI brain, which is normal. His CT angiogram of the head and neck was also unremarkable. At this time, given the pre sentation, this is likely cardiac in origin. I would recommend counseling with Cardiology for furthe r recommendations. He will continue with aspirin 81 mg daily for secondary stroke prevention. No fu rther neurological workup needed. I will sign off. Please call if there are any questions or concer n. Thank you for your consultation.
--- NOTE | 2017-07-27 17:18 | CON ---
DATE OF CONSULTATION: 07/27/2017 HISTORY OF PRESENT ILLNESS: Mr. Hernandez is a 57-year-old male with ESRD and was initially s een here for confusion. A comprehensive workup was done, which included an MRI and carotid Dopplers, which were all negative. Neurology has also evaluated this patient and the feeling is that he does not have any neurologic problem. He did present with some chest pain. Cardiology has seen the patie nt. Recommendation for a possible stress test versus cardiac catheterization. We are being consulte d for his maintenance hemodialysis. Today, is his regular dialysis day. REVIEW OF SYSTEMS: No chest pain, no shortness of breath, no nausea, no vomiting, no diarrhea, no sy ncopal episode, no fever or chills, no gross hematuria, no dysuria, no urinary frequency, no syncopal episode, no fever or chills, no melena, no hematemesis. MEDICATIONS: Patient is currently on Ecotrin 81 mg every day, Lipitor 20 mg at bedtime, Tums 1000 mg q. p.r.n., Pepcid 20 mg b.i.d., heparin 5000 units subcu q.12 hours, Humulin R sliding scale, Imdur ER 30 mg every day, insulin detemir 10 units subcu b.i.d. PAST MEDICAL HISTORY: 1. Patient has ESRD - secondary to diabetic nephropathy. 2. Type 2 diabetes mellitus. 3. Status post seizure disorder. 4. Peripheral vascular disease. 5. Status post CVA. 6. Status post congestive heart failure. PAST SURGICAL HISTORY: 1. Status post right second toe amputation. 2. Status post cuffed dialysis catheter placement. 3. Status post AV fistula placement. 4. Status post depth amount of right foot ulcer. 5. Status post laparoscopic cholecystectomy. 6. Status post I and D of diabetic right 4th plantar abscess with removal of foreign body. 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 , lives in [place]. Status post blood transfusion. No IV drug abuse. Currently, not smoking. He is medically disabled. Education high school. ALLERGIES: None. TRAUMA: None. IMMUNIZATIONS: Up-to-date. HOSPITALIZATIONS: Please see past medical history. FAMILY HISTORY: No family history of ESRD. PHYSICAL EXAMINATION: VITAL SIGNS: Blood pressure 176/76, heart rate 72, respiratory rate 15, temperature 98.3, pulse ox 9 3%. GENERAL EXAM: Awake, alert, comfortable, not in distress. SKIN: Adequate turgor. HEENT: He has pinkish conjunctivae, anicteric sclerae. NECK: No neck mass, no carotid bruits, no JVD. CHEST: No deformities. LUNGS: Clear breath sounds. HEART: Normal sinus rhythm. No murmur, no gallops, no rubs. ABDOMEN: Globular, soft, nontender, no masses. EXTREMITIES: No edema. Note, status post multiple toe amputations, right, positive for plantar ulce ration. NEUROLOGIC EXAM: Awake, alert, comfortable, not in distress. LABORATORY DATA: Laboratories of 07/26/2017, white count 10.3, hemoglobin 11.1. Sodium 133, potassi um 4.2, chloride 95, carbon dioxide 27, BUN 44, creatinine 5.88, glucose 405, calcium 9.2, AST 13, AL T 13, albumin 3.9, troponin I 0.018. CT scan of the head, no acute intracranial abnormality. Brain MRI was negative. CT angio negative. ASSESSMENT AND PLAN: 1. Chest pain - being evaluated by Cardiology. Possibility of a stress test versus cardiac catheter ization. 2. End-stage renal disease, stable. We will continue current hemodialysis regimen Sunday, Sunday , Sunday. I have scheduled this patient for a 4-hour hemodialysis today. Fluid removal only as tole rated. 3. Hypertension. We will probably restart patient's clonidine 0.1 mg tab b.i.d. 4. History of hyperphosphatemia, Renvela 800 mg 2 tabs t.i.d. with meals. Recheck basic metabolic panel and CBC in a.m.
[2017-07-27] MEDS: Sevelamer Carbonate 800 MG TAB PO SCH (17:41)
--- NOTE | 2017-07-27 17:55 | CON ---
DATE OF CONSULTATION: 07/27/2017 HISTORY OF PRESENT ILLNESS: The patient is a 57-year-old gentleman who presents for evaluation of chest discomfort. The patient has a long history of cerebral vascular disease. He previously suffered several TIAs and a cerebrovascular accident. He was treated initially with aspirin and Plavix. He apparently suffered a hemorrhagic CVA many years ago. He was taken off Plavix. In 2016, the patient was admitted with chest discomfort. He underwent a Cardiolite stress test, which revealed him to have no evidence of ischemia. He underwent a carotid ultrasound, which was unremarkable. The patient was in usual state of health when he developed left-sided chest discomfort. He states that it was left sided and radiated down his left arm. The patient apparently became confused and dizzy. He presented to the emergency room for further evaluation. PAST MEDICAL HISTORY: 1. TIA's. 2. Hemorrhagic cerebrovascular accident. 3. End-stage renal disease. 4. Diabetes mellitus. 5. Hypertension. 6. Dyslipidemia. PAST SURGICAL HISTORY: Tonsillectomy, cholecystectomy and amputation of his right foot. ALLERGIES: None. MEDICATIONS: Aspirin was 81 daily, insulin 30 subcu b.i.d., hydralazine 100 t.i.d., Prozac 20 daily and amlodipine 10 daily. SOCIAL HISTORY: Nonsmoker. FAMILY HISTORY: Positive family history of heart disease. Father had coronary artery disease. REVIEW OF SYSTEMS: Ten-point system otherwise unremarkable. No history of bright red blood per rectum, hematuria or dysuria. Ten-point system unremarkable. PHYSICAL EXAMINATION: GENERAL: An obese gentleman in no acute distress. VITAL SIGNS: Blood pressure is 176/76, heart rate is 72 and regular. NECK: No jugular venous distention. LUNGS: Clear to auscultation. HEART: Regular rate and rhythm. Normal S1 and S2. 2/6 systolic murmur. ABDOMEN: Distended. EXTREMITIES: He is status post amputation in his right foot. VASCULAR: His distal left pulse with DP was 2+. His right femoral pulse is 2+. NEUROLOGIC: He has left-sided weakness. LABORATORY DATA: His sodium was 133, potassium 4.2, chloride 95, bicarbonate 27 , BUN 44, creatinine is 5.8 and glucose is 405. His white blood cell count is 10.3, hemoglobin 11.1, hematocrit 32.9 and his platelets are 188. IMAGING DATA: His EKG revealed normal sinus rhythm with a first-degree AV block and an incomplete left bundle branch block. IMPRESSION: 1. Chest pain, suggestive of angina. 2. Hypertension. 3. Diabetes mellitus. 4. History of a hemorrhagic cerebrovascular accident. 5. History of multiple transient ischemic attacks. 6. Dyslipidemia. 7. Obesity. PLAN: This gentleman presents with chest pain that was suggestive of ischemic heart disease. He has multiple risk factors that I would recommend that he undergo an invasive evaluation to see if he has significant coronary artery disease. We will add Imdur to his medical regimen with his prolonged first- degree AV block. Would avoid beta saira therapy. Would increase the dose of his Lipitor. We will check the patient's echocardiogram. We will proceed with cardiac catheterization if the patient is agreeable during this hospitalization. FRANCISCO
[2017-07-27] MEDS ORDERED: Atorvastatin Calcium 10 MG TAB PO SCH (21:00)
[2017-07-27] MEDS: Docusate 100 MG CAP PO SCH (23:13)
[2017-07-27] MEDS: Atorvastatin Calcium 20 MG TAB PO SCH (23:13)
[2017-07-27] MEDS: Heparin 5,000 UNITS/ML VIAL SC SCH (23:13)
[2017-07-27] MEDS: Famotidine 20 MG TAB PO SCH (23:13)
[2017-07-27] MEDS: Insulin Detemir 100 UNITS/ML 10 UNITS in Admixture Fee 1 EACH SC SCH (23:14)
[2017-07-28] MEDS: cloNIDine 0.1 MG TAB PO SCH ×3 (00:32→21:05)
[2017-07-28 05:46] LABS: #Eosinphils 0.3 thou/uL (0.0-0.7); #Lymphocytes 2.2 thou/uL (1.20-3.40); #Monocytes 0.8 thou/uL (0.11-0.59); %Basophils 0.2 % (0.0-1.0); %Eosinophils 3.6 % (0.0-10.0); %Lymphocytes 23.5 % (21.0-51.0); %Monocytes 8.6 % (0.0-10.0); %Neutrophils 64.2 % (42.0-75.0); Hemoglobin 11.1 g/dL (14.0-18.0); Mean Corpuscular HGB CONC 33.6 g/dL (32.0-36.0); Mean Corpuscular Hemoglobin 31.5 pg (27.0-31.0); Mean Corpuscular Volume 93.8 fl (80.0-94.0); Mean Platelet Volume 6.8 fL (7.4-10.4); Platelet Count 180 thou/uL (130-400); Red Blood Cell (RBC) Count 3.51 mill/uL (4.70-6.10); White Blood Cell (WBC) Count 9.4 thou/uL (4.8-10.8)
[2017-07-28 06:13] LABS: Anion Gap 8 mmol/L (10-20); BUN (Urea Nitrogen) 22 mg/dL (8.4-25.7); Calc. Creatinine Clearance 30 mL/min (70-130); Calcium 8.8 mg/dL (7.8-10.44); Carbon Dioxide 34 mmol/L (22-29); Cardiac Risk 7.5 (Less than 4.5); Chloride 98 mmol/L (98-107); Cholesterol 188 mg/dl (< 200 Desired); Estimated GFR-MDRD 14; Glucose 114 mg/dL (70-105); HDL Cholesterol 25 mg/dL (>60 Neg Risk); LDL Cholesterol, Calculated 105 mg/dL; Phosphorus 3.3 mg/dL (2.3-4.7); Potassium 3.5 mmol/L (3.5-5.1); Sodium 136 mmol/L (136-145); Triglycerides 289 mg/dL (Less than 150)
[2017-07-28] MEDS ORDERED: ADENOSINE 60 MG/20 ML VIAL ONE (07:25)
[2017-07-28] MEDS: Aspirin 81 mg Enteric Coated Tablet PO SCH (08:42)
[2017-07-28] MEDS: Sevelamer Carbonate 800 MG TAB PO SCH ×3 (08:42→16:28)
[2017-07-28] MEDS: Heparin 5,000 UNITS/ML VIAL SC SCH ×2 (08:45→21:04)
[2017-07-28] MEDS: Docusate 100 MG CAP PO SCH ×2 (08:45→21:04)
[2017-07-28] MEDS: Insulin Detemir 100 UNITS/ML 10 UNITS in Admixture Fee 1 EACH SC SCH ×2 (08:45→21:10)
[2017-07-28] MEDS: Famotidine 20 MG TAB PO SCH ×2 (08:45→21:05)
--- NOTE | 2017-07-28 16:35 | NM ---
NUCLEAR MEDICINE CARDIAC STRESS TEST WITH EJECTION FRACTION 07/28/17 HISTORY: Chest pain, CHF, hypertension, diabetes. COMPARISON: None. FINDINGS: Stress and rest performed after the intravenous administration of 31 and 10.5 millicuries technetium 99 m Sestamibi, respectively. No infarct or ischemia. The calculated ejection fraction is 56%. Normal wall motion. IMPRESSION: No evidence of scar or ischemia. POS: [facility]
[2017-07-28] MEDS: Atorvastatin Calcium 20 MG TAB PO SCH (21:05)
--- NOTE | 2017-07-28 22:02 | PDOC.PN ---
- Subjective Encounter Start Date: 07/28/17 Encounter Start Time: 20:00 Patient seen and examined. No new complaints. No overnight events - Objective MAR Reviewed: Yes Vital Signs & Weight: Vital Signs (12 hours) Temp Pulse Resp BP BP BP Pulse Ox 07/28/17 21:05 167/73 H 07/28/17 20:00 98.9 F 74 16 167/73 H 97 07/28/17 15:54 98.2 F 74 16 136/73 95 I&O: 07/27/17 07/28/17 07/29/17 06:59 06:59 06:59 Intake Total 240 Balance 240 Result Diagrams: 07/28/17 05:12 07/28/17 05:12 Additional Labs: Accuchecks 07/28/17 07/28/17 07/28/17 21:12 17:20 05:56 POC Glucose 231 H 212 H 113 H EKG Reviewed by me: Yes (Tele SR) Phys Exam - Physical Examination Constitutional: NAD Neck: no JVD Respiratory: no wheezing, no rales, no rhonchi, clear to auscultation bilateral Cardiovascular: RRR, no rub no heaves/pulsations Gastrointestinal: soft, non-tender, no distention, positive bowel sounds Musculoskeletal: no edema Neurological: non-focal, moves all 4 limbs Psychiatric: normal affect, A&O x 3 Skin: no rash Dx/Plan - Plan DVT proph w/SCDs IMPRESSION: 1. Unstable angina with cardiogenic syncope with suspected TIA 2. Negative Cardiolite stress test in 10/2015. 3. Normal left ventricular ejection fraction in 05/2015. 4. End-stage renal disease, on hemodialysis. 5. Hypertension. 6. Diabetes mellitus type 2 with retinopathy, neuropathy and nephropathy. 7. Dyslipidemia. 8. History of hemorrhagic cerebrovascular accident in 2005. 9. History of transient ischemic attacks and ischemic stroke with residual left -sided weakness. 10. Depression. PLAN: * Cardio input appreciated * Stress test negative * Imdur started * Cont sliding scale with Levemir * Dialysis per Nephro * Neuro input appreciated * Cont ASA * MRI negative Review of Systems - Review of Systems Cardiovascular: negative: chest pain, palpitations, orthopnea, paroxysmal nocturnal dyspnea, edema, light headedness Gastrointestinal: negative: Nausea, Vomiting, Abdominal Pain, Diarrhea, Constipation, Melena, Hematochezia - Medications/Allergies Allergies/Adverse Reactions: Allergies Allergy/AdvReac Type Severity Reaction Status Date / Time No Known Allergies Allergy Verified 11/01/15 01:32 Medications: Current Medications Acetaminophen (Tylenol) 650 mg PO Q4H PRN PRN Reason: Headache/Fever or Pain Aspirin (Ecotrin) 81 mg PO DAILY [facility] Last Admin: 07/28/17 08:42 Dose: 81 mg Atorvastatin Calcium (Lipitor) 20 mg PO HS [facility] Last Admin: 07/28/17 21:05 Dose: 20 mg Calcium Carbonate (Tums) 1,000 mg PO Q4H PRN PRN Reason: Heartburn or Indigestion Clonidine (Catapres) 0.1 mg PO BID [facility] Last Admin: 07/28/17 21:05 Dose: 0.1 mg Dextrose/Water (Dextrose 50%) 25 gm SLOW IVP PRN PRN PRN Reason: Hypoglycemia Docusate Sodium (Colace) 100 mg PO BID [facility] Last Admin: 07/28/17 21:04 Dose: Not Given Famotidine (Pepcid) 20 mg PO BID [facility] Last Admin: 07/28/17 21:05 Dose: 20 mg Glucagon (Glucagon) 1 mg IM PRN PRN PRN Reason: Hypoglycemia Heparin Sodium (Porcine) (Heparin) 5,000 units SC Q12HR [facility] Last Admin: 07/28/17 21:04 Dose: 5,000 units Hydralazine HCl (Apresoline) 10 mg SLOW IVP Q4H PRN PRN Reason: BP > 180 Dextrose/Water (D5w) 1,000 mls @ 0 mls/hr IV .Q0M PRN; As Directed PRN Reason: Hypoglycemia Insulin Detemir 10 units/ (Miscellaneous Medication) 0.1 mls @ 0 mls/hr SC BID [facility] Last Admin: 07/28/17 21:10 Dose: 0.1 mls Insulin Human Regular (Humulin R) 0 units SC .MILD SLIDING SCALE PRN PRN Reason: Mild Correctional Scale Insulin Human Regular (Humulin R) 0 units SC .BEDTIME SLIDING SC PRN PRN Reason: Bedtime Correctional Scale Last Admin: 07/28/17 21:14 Dose: 2 unit Isosorbide Mononitrate (Imdur Er) 30 mg PO DAILY [facility] Last Admin: 07/28/17 08:46 Dose: Not Given Senna (Senokot) 2 tab PO HSPRN PRN PRN Reason: Constipation Sevelamer Carbonate (Renvela) 1,600 mg PO TID-[facility] Last Admin: 07/28/17 16:28 Dose: 1,600 mg
[2017-07-29] MEDS: Insulin Regular 300 UNITS/3 ML VIAL SC PRN ×2 (06:29→11:29)
[2017-07-29 08:06] VITALS: TEMP 98.4
[2017-07-29] MEDS: Docusate 100 MG CAP PO SCH (08:59)
[2017-07-29] MEDS: Famotidine 20 MG TAB PO SCH (08:59)
[2017-07-29] MEDS: Sevelamer Carbonate 800 MG TAB PO SCH ×2 (08:59→11:18)
[2017-07-29] MEDS: Aspirin 81 mg Enteric Coated Tablet PO SCH (08:59)
[2017-07-29] MEDS: cloNIDine 0.1 MG TAB PO SCH (08:59)
[2017-07-29] MEDS: Insulin Detemir 100 UNITS/ML 10 UNITS in Admixture Fee 1 EACH SC SCH (09:00)
[2017-07-29] MEDS: Heparin 5,000 UNITS/ML VIAL SC SCH (09:00)
[2017-07-29 09:05] VITALS: BP 167/73
--- NOTE | 2017-07-29 09:32 | PRG ---
DATE OF SERVICE: 07/29/2017 SERVICE: Renal Medicine. SUBJECTIVE: Mr. Hernandez is a 57-year-old male with ESRD who was admitted for chest pain. Helena singleton underwent a cardiac nuclear stress test, which showed no evidence of active ischemia or scarring. The calculated ejection fraction is 56%. This morning, he is feeling better. He denies any chest pa in or shortness of breath. He underwent dialysis last Sunday without any difficulty. PHYSICAL EXAMINATION: VITAL SIGNS: Blood pressure is 167/73, heart rate 75, respiratory rate 16, temperature 98.4, pulse o x 94%. GENERAL: Noted to be awake, alert, sitting comfortable, obese, not in distress. SKIN: Adequate turgor. HEENT: He has pinkish conjunctivae, anicteric sclerae. NECK: No neck mass, no carotid bruits, no JVD. CHEST: No deformities. LUNGS: Clear breath sounds, no wheezing, no crackles. HEART: Normal sinus rhythm. No murmur, no gallops or rubs. ABDOMEN: Globular, soft, nontender. No masses. EXTREMITIES: No edema, no deformities. MEDICATIONS: Of 07/29/2017 was reviewed. LABORATORY DATA: 07/28/2017, white count 9.4, hemoglobin 11.1. Sodium 136, potassium 4.5, chloride 98, carbon dioxide 34, BUN 22, creatinine 4.45, glucose 104, calcium 8.8, phosphorus 3.3, cholesterol 188. On 07/29/2017, blood sugar is 178. ASSESSMENT AND PLAN: 1. End-stage renal disease, stable. Tolerating current hemodialysis regimen. We will continue , Sunday, Sunday dialysis. There is no indication for any dialytic intervention. The patient i s not in volume overload. Potassium is within normal. 2. Chest pain, resolved. Cardiac stress test was essentially negative. EF showed a value of 56%. Agree with current management. No changes to be made. We will recheck a base met and CBC in a.m.
[2017-07-29] MEDS ORDERED: Amlodipine 10 MG TAB PO SCH (11:00)
--- NOTE | 2017-07-29 19:21 | DIS ---
DATE OF DISCHARGE: 07/29/2017 DISCHARGE DISPOSITION: Home. FOLLOWUP: Follow up with primary care physician, Dr. Alston at [facility]. Follow up with Dr. Dalal. ALLERGIES: No known drug allergies. The patient was seen and examined on the day of discharge. Denies any new complaints, no chest pain, shortness of breath, palpitations. DISCHARGE MEDICATIONS: 1. Lipitor 10 mg at bedtime. 2. Clonidine 0.1 mg twice a day. 3. Imdur 60 mg daily. Other home medications were resumed includin. Amlodipine 10 mg daily. 2. Aspirin 325 mg daily. 3. Vitamin D3 1000 units daily. 4. Prozac 20 mg daily. 5. Humalog sliding scale. 6. Hydralazine 100 mg three times a day. 7. Renvela 800 mg 3 times a day. 8. Lantus 30 units b.i.d. INPATIENT CONSULTANTS: Nephrology, Dr. Dalal. Neurology, Dr. Connors and Cardiology, Dr. Delacruz. BRIEF HOSPITAL COURSE: The patient is a 57-year-old male with end-stage renal disease on hemodialysi s, diabetes mellitus type 2, and hypertension who presented to the emergency room with altered mentat ion. He was at home and had chest discomfort. The chest discomfort was followed by altered mentatio n. Please refer to the history and physical dated 07/26/2017 for further details. The patient was admitted to the hospital with a diagnosis of TIA versus cardiogenic syncope. The pat ient was seen by Cardiology, Dr. Carlos Delacruz as well as Neurology, Dr. Shahnaz Connors. MRI of the brai n was negative. Dr. Connors recommended to continue aspirin. Clonidine has been changed from 0.3 mg tw ice a day to 0.1 mg twice a day due to second degree AV block type 1. I discussed with Dr. Delacruz regarding event monitor. According to Dr. Delacruz, patient does not need event monitor. I discusse d with Dr. Dalal who will follow up with the clonidine taper. He was seen by Dr. Dalal for hemodialysis. He is back to his baseline and appears stable for discharge. Plan of care was discussed with the patient in detail. He stated understanding. FINAL DIAGNOSES: 1. Transient ischemic attack. 2. Unstable angina with cardiogenic syncope. 3. Negative Cardiolite stress test this admission. 4. End-stage renal disease, on hemodialysis. 5. Hypertension. 6. Diabetes mellitus type 2 with retinopathy, neuropathy and nephropathy. 7. Dyslipidemia. 8. History of hemorrhagic cerebrovascular accident in 2005. 9. History of transient ischemic attack and ischemic stroke with residual left-sided weakness. 10. Depression. 11. Obesity with a body mass index at 39.9. 12. Chronic anemia. SIGNIFICANT LABORATORY DATA: Fasting lipid profile showed triglyceride 289, cholesterol 188, LDL 105 , HDL 25. Plan of care was discussed with the patient in detail. He stated understanding.
[2017-07-30] MEDS ORDERED: Amlodipine 10 MG TAB PO SCH (09:00)
--- NOTE | 2017-08-04 20:42 | EKG ---
Test Reason : Blood Pressure : / mmHG Vent. Rate : 085 BPM Atrial Rate : 085 BPM P-R Int : 250 ms QRS Dur : 116 ms QT Int : 412 ms P-R-T Axes : 066 001 028 degrees QTc Int : 490 ms Sinus rhythm with 1st degree A-V block Incomplete left bundle branch block Prolonged QT Abnormal ECG Confirmed by DIAMOND MATHIS ([id number]), purchasing expeditor ELOY DELATORRE ([id number]) on 08/04/2017 8:41:11 PM Referred By: Confirmed By:DIAMOND MATHIS
== END 2017-07-29 13:16 | disposition home or self-care (01) | DRG 69 ==
LOC: ERS 16:38 → 2SE 18:41 → OBSVTOIN 07-27 16:11
PROVIDERS: ADMIT Internal Medicine; ATTEND Internal Medicine
PROC: 5A1D70Z Performance of Urinary Filtration, Intermittent, Less than 6 Hours Per Day (ICD-10-PCS; principal; 2017-07-27)
DX: G45.9 Transient cerebral ischemic attack, unspecified (principal); E11.22 Type 2 diabetes mellitus with diabetic chronic kidney disease; E11.42 Type 2 diabetes mellitus with diabetic polyneuropathy; I12.0 Hypertensive chronic kidney disease with stage 5 chronic kidney disease or end stage renal disease; E11.319 Type 2 diabetes mellitus with unspecified diabetic retinopathy without macular edema; I25.110 Atherosclerotic heart disease of native coronary artery with unstable angina pectoris; N18.6 End stage renal disease; I69.354 Hemiplegia and hemiparesis following cerebral infarction affecting left non-dominant side; Z99.2 Dependence on renal dialysis; I44.0 Atrioventricular block, first degree; I44.7 Left bundle-branch block, unspecified; E78.5 Hyperlipidemia, unspecified; Z79.82 Long term (current) use of aspirin; Z79.4 Long term (current) use of insulin; Z87.891 Personal history of nicotine dependence; F32.9 Major depressive disorder, single episode, unspecified; E66.9 Obesity, unspecified; Z68.39 Body mass index [BMI] 39.0-39.9, adult; D63.1 Anemia in chronic kidney disease; Z89.421 Acquired absence of other right toe(s)
CPT/HCPCS: 0042T; 36415; 36416; 70450; 70496; 70498; 70551; 71045; 78452; 80048; 80053; 80061; 82553; 84100; 84484; 85025; 85610; 85730; 90935; 93005; 93017; 94760; A9500; G0257; G8978-GP-CJ; G8979-GP-CI; G8987-GO-CJ; G8988-GO-CI; G9162-GN-CI; G9163-GN-CI; J0153; J1644; J1815

== ENCOUNTER 2017-10-13 18:20 | Inpatient (IN) | payer MEDICARE ==
[2017-10-13] MEDS ORDERED: Acetaminophen 500 MG TAB ONE (18:33)
--- NOTE | 2017-10-13 18:46 | RAD ---
PORTABLE UPRIGHT FRONTAL CHEST RADIOGRAPH 10/13/17 COMPARISON: 07/26/17 HISTORY: Fever, vomiting, and weakness. FINDINGS: The lungs are clear. The heart and mediastinal contours are stable. IMPRESSION: No acute findings. POS: [facility]
[2017-10-13 18:49] LABS: #Eosinphils 0.1 thou/uL (0.0-0.7); #Lymphocytes 1.3 thou/uL (1.20-3.40); #Monocytes 0.8 thou/uL (0.11-0.59); #Neutrophils 10.6 thou/uL (1.40-6.50); %Basophils 0.3 % (0.0-1.0); %Eosinophils 0.9 % (0.0-10.0); %Lymphocytes 9.8 % (21.0-51.0); %Monocytes 6.3 % (0.0-10.0); %Neutrophils 82.9 % (42.0-75.0); Hemoglobin 11.9 g/dL (14.0-18.0); Mean Corpuscular HGB CONC 34.5 g/dL (32.0-36.0); Mean Corpuscular Hemoglobin 33.5 pg (27.0-31.0); Mean Corpuscular Volume 97.1 fl (80.0-94.0); Mean Platelet Volume 7.4 fL (7.4-10.4); Platelet Count 193 thou/uL (130-400); RBC Distribution Width 13.7 % (11.5-14.5); Red Blood Cell (RBC) Count 3.56 mill/uL (4.70-6.10); White Blood Cell (WBC) Count 12.8 thou/uL (4.8-10.8)
[2017-10-13] MEDS ORDERED: Piperacillin/Tazobactam 3.375 GM VIAL ONE (19:00)
[2017-10-13 19:12] LABS: Bilirubin Negative (Negative); Blood, Urine Moderate (Negative); Clarity CLOUDY (Clear); Glucose, Urine (Dipstick) >=1000 mg/dL (Negative); Leukocyte Trace (Negative); Nitrite Negative (Negative); Protein, Urine (Dipstick) 100 mg/dL (Neg-Trace)
[2017-10-13 19:15] LABS: Bacteria/HPF None Seen HPF (None Seen); Hyaline Casts/LPF 4-6 HYALINE CAST LPF (0-3 Hyaline)
[2017-10-13 19:15] LABS: ALT (SGPT) 26 U/L (8-55); AST (SGOT) 28 U/L (5-34); Albumin 3.9 g/dL (3.5-5.0); Alkaline Phosphatase 172 U/L (40-150); Anion Gap 19 mmol/L (10-20); BUN (Urea Nitrogen) 37 mg/dL (8.4-25.7); Bilirubin, Total 0.6 mg/dL (0.2-1.2); CK (CPK) 121 U/L (30-200); Calc. Creatinine Clearance 0 mL/min (70-130); Calcium 8.2 mg/dL (7.8-10.44); Carbon Dioxide 23 mmol/L (22-29); Chloride 91 mmol/L (98-107); Estimated GFR-MDRD 9; Globulin 3.9 g/dL (2.4-3.5); Glucose 491 mg/dL (70-105); Lipase 9 U/L (8-78); Magnesium 1.7 mg/dL (1.6-2.6); Potassium 3.8 mmol/L (3.5-5.1); Protein, Total 7.8 g/dL (6.0-8.3); Sodium 129 mmol/L (136-145)
[2017-10-13 19:20] LABS: Troponin I 0.023 ng/mL (< 0.028)
[2017-10-13 19:27] LABS: Renal Epithelial 0-3 HPF (0-3); Transitional Epithelial 0-3 HPF (0-3)
--- NOTE | 2017-10-13 19:29 | RAD ---
THREE VIEWS OF THE RIGHT FOOT 10/13/17 COMPARISON: 04/02/17 HISTORY: Osteomyelitis, ulceration, diabetes. FINDINGS: The great toe is partially amputated at the mid shaft first metatarsal level. The second, third, four th, and fifth toes are partially amputated at the level of the proximal phalangeal shaft. Prominent d egenerative change noted at the second, third and fourth metatarsophalangeal joint. There is prominent degenerative change involving the midfoot. Linear metallic foreign bodies are noted within the soft tissues of the plantar aspect of the foot, t o such linear foreign bodies measuring up to 6 mm in transverse dimension, stable. No subcutaneous gas. No displaced fracture. There is atherosclerotic calcification along the dorsal a spect of the midfoot and anterior to the distal tibia. There is enthesophyte formation at the origin of the plantar aponeurosis. IMPRESSION: Stable appearance of the right foot as described above. POS: [facility]
[2017-10-13] MEDS ORDERED: Insulin Regular 300 UNITS/3 ML VIAL ONE (20:00)
--- NOTE | 2017-10-13 20:11 | CT ---
CT OF ABDOMEN AND PELVIS 10/13/17 COMPARISON: None. HISTORY: Dizziness and fever with nausea and vomiting. TECHNIQUE: Serial axial CT imaging at 5 mm intervals from the lung bases through the pubic symphysis with IV con trast. Coronal reformatted imaging obtained. FINDINGS: Lack of oral contrast limits assessment of the bowel. Imaged lung bases are unremarkable. No free int raperitoneal air or fluid is seen. Cholecystectomy clips are present. No discrete liver lesion identified. The spleen, adrenal glands, and kidneys demonstrate no acute fin dings. Both kidneys are atrophic. There is fatty atrophy of the pancreas. There is a small fat containing inguinal hernia on the right. There is diverticulosis of the transverse colon. No evidence for diverticulitis is apparent. The appe ndix appears unremarkable. There is scattered atherosclerotic calcification of the arterial structure s of the abdomen/pelvis, mild. No lymphadenopathy is seen within the abdomen or pelvis. Review of the osseous structures demonstrate multilevel disc space narrowing and osteophyte formation . There is bilateral hip degenerative change. No displaced fracture or evidence of dislocation noted. IMPRESSION: No acute findings. Incidental findings as described above. POS: [facility]
[2017-10-13] MEDS ORDERED: Ondansetron HCl/PF 4 MG/2 ML Vial IVP PRN (22:35)
[2017-10-13] MEDS ORDERED: Milk Of Magnesia 30 ML UDCUP PO PRN (22:35)
[2017-10-13] MEDS ORDERED: Diabetic Tussin 200 MG/10 ML UDCUP PO PRN (22:35)
[2017-10-13] MEDS ORDERED: Mag-Al 1200 mg/1200 mg/30 ML UDCUP PO PRN (22:35)
[2017-10-13] MEDS ORDERED: Dextrose 5% in Water 1,000 ML IV PRN (22:35)
[2017-10-13] MEDS ORDERED: Loperamide HCl 2 MG CAP PO PRN (22:35)
[2017-10-13] MEDS ORDERED: Acetaminophen 325 MG TAB PO PRN (22:35)
[2017-10-13] MEDS ORDERED: Ondansetron ODT 4 MG TAB PO PRN (22:35)
[2017-10-13] MEDS ORDERED: Senokot 8.6 MG TAB PO PRN (22:35)
[2017-10-13] MEDS ORDERED: Dextrose 50% Abboject 50 ML SYRINGE SLOW IVP PRN (22:35)
[2017-10-13] MEDS ORDERED: hydrALAZINE 20 MG/ML VIAL SLOW IVP PRN (22:35)
[2017-10-13] MEDS ORDERED: Zolpidem Tartrate 5 MG TAB PO PRN (22:35)
[2017-10-13] MEDS ORDERED: HYDROcodone/Acetaminophen 5/325 mg Tablet PO PRN (22:35)
[2017-10-13 22:59] VITALS: BMI 39.5
[2017-10-13] MEDS ORDERED: Vancomycin HCl 1 GM in Premix Bag 1 BAG IVPB SCH (23:00)
[2017-10-13] MEDS ORDERED: Vancomycin HCl 1.5 GM in Sodium Chloride 0.9% 250 ML 300 ML IVPB SCH (23:00)
[2017-10-13] MEDS ORDERED: Vancomycin HCl 750 MG in Sodium Chloride 0.9% 250 ML 250 ML IVPB SCH (23:00)
[2017-10-13] MEDS ORDERED: HOLD VANCOMYCIN FOR LEVEL >20 FS SCH (23:00)
[2017-10-13] MEDS ORDERED: Vancomycin HCl 1.25 GM in Sodium Chloride 0.9% 250 ML 250 ML IVPB SCH (23:00)
--- NOTE | 2017-10-13 23:49 | HP ---
PRIMARY CARE PHYSICIAN: Dr. Alston at [facility]. PRIMARY WILDLIFE CONTROL AGENT: Dr. Dalal. REASON FOR ADMISSION: Sepsis. HISTORY OF PRESENT ILLNESS: A 57-year-old male who has diabetes, ESRD on hemodialysis, hype rtension, who was brought to emergency room for generalized weakness, fever, chills, nausea, or vomit ing. He denies any cough. He denies any urinary tract infection symptoms. He has right foot planta r aspect wound, which was gradually getting worse. He was feeling dizzy and lightheaded. He was hav ing chills. He denies any diarrhea. He denies any melena, hematochezia. He denies any chest pain, shortness of breath. He was diaphoretic at home with chills. Patient was found with ulcer at the bottom of his foot, which was draining serosanguineous fluid. He denies any trauma. REVIEW OF SYSTEMS: Please see my HPI for pertinent positive and negative. All other review of syste m reviewed and negative except as mentioned in the HPI: Constitutional: Weight loss or gain, abilit y to conduct usual activities. Skin: Rash, itching. Eyes: Double vision, pain. ENT/Mouth: Nose bleeding, neck stiffness, pain, tenderness. Cardiovascular: Palpitations, dyspnea on exertion, orth opnea. Respiratory: Shortness of breath, wheezing, cough, hemoptysis, fever, or night sweats. Castro rointestinal: Poor appetite, abdominal pain, heartburn, nausea, vomiting, constipation, or diarrhea. Genitourinary: Urgency, frequency, dysuria, nocturia. Musculoskeletal: Pain, swelling. Neurolog ic/Psychiatric: Anxiety, depression. Allergy/Immunologic: Skin rash, bleeding tendency. PAST MEDICAL HISTORY: ESRD on hemodialysis, diabetes type 2, diabetic retinopathy, diabetic neuropat hy, diabetic nephropathy, hypertension, history of CVA and TIA with residual left-sided weakness, dys lipidemia, history of hemorrhagic stroke in 2005. PAST SURGICAL HISTORY: Multiple dialysis access, cholecystectomy, tonsillectomy, partial toe amputat ion on the right side as well as transmetatarsal amputation on the right side, third left toe partial digit amputation. ALLERGIES: No known drug allergy. SOCIAL HISTORY: Patient is , lives at home with his . He is a former smoker. He ambulat es with a walker and cane. No history of alcohol or other illicit drug abuse. FAMILY HISTORY: Father by age of 76 from colon cancer. CURRENT HOME MEDICATIONS: Lantus 30 units subcutaneous b.i.d., clonidine 0.1 mg t.i.d., vitamin D3 o f 1000 units p.o. daily, lisinopril 10 mg daily, Lipitor 20 mg at bedtime, hydralazine 50 mg t.i.d., Humalog insulin as per sliding scale, Renvela 800 mg t.i.d., trazodone 50 mg p.o. at bedtime, Zofran ODT p.r.n., tramadol with Tylenol q.6 hourly p.r.n. EMERGENCY ROOM COURSE: Patient has received vancomycin, Zosyn, Novolin R 10 units, morphine 4 mg, Ty lenol 1 gram. PHYSICAL EXAMINATION: VITAL SIGNS: On arrival, blood pressure 182/73, pulse 100, temperature 102.9, respiratory rate 28, s aturation 96% on room air, weight 114.6 kilograms. GENERAL: Patient is currently hypertensive, diaphoretic, warm. HEAD: Normocephalic, atraumatic. EYES: Pupils round, reactive to light. Extraocular muscle intact. ENT: Oropharynx within normal limits. Moist mucous membranes. No oral lesion, no pharyngeal erythe ma, no exudate. NECK: Supple. No JVD, no thyromegaly, no carotid bruit. LUNGS: Clear to auscultation without any rhonchi or rales. CARDIAC: S1, S2 appears regular, tachycardia. No murmur, no gallop, no rub. ABDOMEN: Patient subjectively had left lower quadrant tenderness, but no peritoneal sign, no guardin g, no rigidity, no rebound. BACK: Unremarkable. No CVA tenderness. EXTREMITIES: Upper extremity passive movement of all joints are normal. Lower extremity toe amputat ion noted on the right foot as well as the third toe partial amputation on the left foot. Patient do es have 2.2-cm right plantar wound with packing foul smelling some serosanguineous discharge noted. NEUROLOGIC: Nonfocal examination. SKIN: No skin rash other than diabetic foot ulcer on the plantar aspect of right foot. PSYCHIATRIC: Normal affect. SIGNIFICANT LABORATORY DATA: EKG showing sinus tachycardia, first-degree AV block. Chest x-ray base d on my review, no acute cardiopulmonary process. Abdomen and pelvis CT scan showing diverticulosis, but no diverticulitis. X-ray foot showing great toe partially amputated at metatarsal level second, third, fourth, and fifth toe partially amputated at proximal phalangeal shaft. Metallic foreign bod ies noted within soft tissue of plantar aspect of foot. ASSESSMENT AND PLAN: 1. Sepsis due to type 2 diabetic foot infection. 2. Right diabetic foot infection, plantar aspect with ulcer with foreign body. 3. End-stage renal disease on hemodialysis. 4. Hypertension. 5. Dyslipidemia. 6. Anxiety and depression. 7. Anemia of renal disease. 8. Secondary hyperparathyroidism of renal origin. 9. Morbid obesity. PLAN: 1. Full admission to medical floor. Start empiric vancomycin and Zosyn at renally adjusted dose. C onsult Nephrology for maintenance hemodialysis while in hospital. Consult Dr. Stearns if further evalu ation and selection of antibiotic therapy. Consult General Surgeon for possible need of debridement . We will resume patient's home medication. 2. Deep venous thrombosis prophylaxis, heparin 5000 units subcutaneous twice daily. 3. Gastrointestinal prophylaxis. Pepcid 20 mg p.o. daily. CODE STATUS: Patient is FULL CODE. Patient's is surrogate decision maker. Disposition plan based on clinical course. We are expecting patient's stay in hospital more than 2 m idnights. Plan of care discussed with the patient in detail.
[2017-10-14 04:47] LABS: #Eosinphils 0.1 thou/uL (0.0-0.7); #Lymphocytes 2.2 thou/uL (1.20-3.40); #Neutrophils 7.3 thou/uL (1.40-6.50); %Basophils 0.2 % (0.0-1.0); %Eosinophils 0.9 % (0.0-10.0); %Lymphocytes 20.6 % (21.0-51.0); %Monocytes 9.7 % (0.0-10.0); %Neutrophils 68.6 % (42.0-75.0); Hemoglobin 10.7 g/dL (14.0-18.0); Mean Corpuscular HGB CONC 33.8 g/dL (32.0-36.0); Mean Corpuscular Hemoglobin 32.6 pg (27.0-31.0); Mean Corpuscular Volume 96.7 fl (80.0-94.0); Mean Platelet Volume 7.5 fL (7.4-10.4); Platelet Count 181 thou/uL (130-400); RBC Distribution Width 13.5 % (11.5-14.5); Red Blood Cell (RBC) Count 3.29 mill/uL (4.70-6.10); White Blood Cell (WBC) Count 10.7 thou/uL (4.8-10.8)
[2017-10-14 05:54] LABS: ALT (SGPT) 99 U/L (8-55); AST (SGOT) 192 U/L (5-34); Albumin 3.2 g/dL (3.5-5.0); Alkaline Phosphatase 237 U/L (40-150); Anion Gap 17 mmol/L (10-20); BUN (Urea Nitrogen) 41 mg/dL (8.4-25.7); Bilirubin, Total 1.3 mg/dL (0.2-1.2); Calc. Creatinine Clearance 19 mL/min (70-130); Calcium 7.8 mg/dL (7.8-10.44); Carbon Dioxide 24 mmol/L (22-29); Chloride 94 mmol/L (98-107); Estimated GFR-MDRD 8; Globulin 3.2 g/dL (2.4-3.5); Glucose 258 mg/dL (70-105); Potassium 3.7 mmol/L (3.5-5.1); Protein, Total 6.4 g/dL (6.0-8.3); Sodium 131 mmol/L (136-145)
[2017-10-14] MEDS: HumaLOG 300 UNITS/3 ML VIAL SC PRN ×4 (06:26→21:59)
[2017-10-14] MEDS: Piperacillin/Tazobactam 2.25 GM in Sodium Chloride 0.9% 100 ML IVPB SCH ×2 (08:51→21:51)
[2017-10-14] MEDS: Heparin 5,000 UNITS/ML VIAL SC SCH ×2 (08:56→21:51)
[2017-10-14] MEDS: Famotidine 20 MG TAB PO SCH (08:56)
[2017-10-14] MEDS ORDERED: Prevnar 13-Val Conj/PF 0.5 ML SYRINGE IM ONE (09:00)
[2017-10-14 09:11] LABS: Vancomycin, Trough 12.3 ug/mL
--- NOTE | 2017-10-14 10:47 | ULT ---
RIGHT UPPER QUADRANT ULTRASOUND: Date: 10/14/17 PROVIDED CLINICAL HISTORY: Elevated LFTs and abdominal pain. FINDINGS: The liver appears enlarged, measuring approximately 21.1 cm in craniocaudal dimension at the right he patic lobe. There is diffuse increased echogenicity and coarsening of the hepatic echotexture compati ble with fatty infiltration. No evidence for mass or intrahepatic biliary ductal dilatation. Gallblad adair is not visualized, compatible with provided surgical history of cholecystectomy. The common duct is not dilated. The pancreas is not visualized. The right kidney demonstrates no hydronephrosis or ma ss. IMPRESSION: Hepatomegaly and fatty infiltration of the liver. POS: [facility]
--- NOTE | 2017-10-14 13:11 | PDOC.PN ---
- Subjective Encounter Start Date: 10/14/17 Encounter Start Time: 13:09 Subjective: feels a little better.no fever/chills -: no pain in affected foot -: mild Left sided abd pain ,no N/V/D - Objective Resuscitation Status: Resuscitation Status FULL:Full Resuscitation MAR Reviewed: Yes Vital Signs & Weight: Vital Signs (12 hours) Temp Pulse Resp BP Pulse Ox 10/14/17 10:52 98.3 F 69 18 132/69 97 10/14/17 08:00 98.3 F 71 18 98 10/14/17 07:37 98.1 F 71 18 149/58 H 98 10/14/17 04:00 97.6 F 65 18 121/61 97 I&O: 10/13/17 10/14/17 10/15/17 06:59 06:59 06:59 Intake Total 480 Balance 480 Result Diagrams: 10/15/17 04:09 10/15/17 04:09 Additional Labs: Accuchecks 10/14/17 10/14/17 10:52 05:00 POC Glucose 188 H 237 H Microbiology 10/13/17 19:05 Urine Straight Catheter Urine Culture - Preliminary NO GROWTH AT 12 HOURS 10/13/17 18:45 Venous blood - Right Arm Blood Culture - Preliminary Specimen has been received and culture in progress. No Growth to date. 10/13/17 18:34 Venous blood - Right Arm Blood Culture - Preliminary Specimen has been received and culture in progress. No Growth to date. Laboratory Tests 10/13/17 10/13/17 10/14/17 18:44 18:44 04:14 Total Bilirubin 0.6 1.3 H AST 28 192 H ALT 26 99 H Alkaline Phosphatase 172 H 237 H C-Reactive Protein 11.76 H 10/14/17 04:14 Total Bilirubin AST ALT Alkaline Phosphatase C-Reactive Protein 13.11 H Phys Exam - Physical Examination Constitutional: NAD HEENT: PERRLA, moist MMs, sclera anicteric, oral pharynx no lesions Neck: no nodes, no JVD, supple, full ROM Respiratory: no wheezing, no rales, no rhonchi, clear to auscultation bilateral Cardiovascular: RRR, no significant murmur, no rub Gastrointestinal: soft, non-tender, no distention, positive bowel sounds Musculoskeletal: no edema, pulses present R foot plantar surface knot w opening w surrounding blanching Neurological: non-focal, normal sensation, moves all 4 limbs Psychiatric: normal affect, A&O x 3 Dx/Plan (1) Sepsis Code(s): A41.9 - SEPSIS, UNSPECIFIED ORGANISM Status: Acute (2) Foot abscess, right Code(s): L02.611 - CUTANEOUS ABSCESS OF RIGHT FOOT Status: Acute (3) DM2 (diabetes mellitus, type 2) Status: Acute Qualifiers: Diabetes mellitus terminal make up operator insulin use: with terminal make up operator use Diabetes mellitus complication status: with diabetic arthropathy Diabetes mellitus complication detail: with neuropathic arthropathy Qualified Code(s): E11.610 - Type 2 diabetes mellitus with diabetic neuropathic arthropathy; Z79.4 - lobsterman (current) use of insulin; Z79.4 - retirement (current) use of insulin; Z79.4 - retirement (current) use of insulin; Z79.4 - lobsterman (current) use of insulin (4) Diabetic neuropathic arthropathy Code(s): E11.610 - TYPE 2 DIABETES MELLITUS W DIABETIC NEUROPATHIC ARTHROPATHY Status: Chronic (5) ESRD (end stage renal disease) on dialysis Code(s): N18.6 - END STAGE RENAL DISEASE; Z99.2 - DEPENDENCE ON RENAL DIALYSIS Status: Chronic (6) HTN (hypertension) Code(s): I10 - ESSENTIAL (PRIMARY) HYPERTENSION Status: Chronic Qualifiers: Hypertension type: essential hypertension Qualified Code(s): I10 - Essential (primary) hypertension (7) Anemia in chronic kidney disease Code(s): N18.9 - CHRONIC KIDNEY DISEASE, UNSPECIFIED; D63.1 - ANEMIA IN CHRONIC KIDNEY DISEASE Status: Chronic Qualifiers: Chronic kidney disease stage: on chronic dialysis Qualified Code(s): N18.6 - End stage renal disease; D63.1 - Anemia in chronic kidney disease; D63.1 - Anemia in chronic kidney disease; Z99.2 - Dependence on renal dialysis; Z99.2 - Dependence on renal dialysis; Z99.2 - Dependence on renal dialysis; Z99.2 - Dependence on renal dialysis - Plan continue antibiotics, PT/OT, out of bed/ambulate, DVT proph w/SCDs likley foot wound is infected.cont empiric ABx. -: will need I&D.GS & wound care consulted for same -: follow final Cx results.ID consulted -: cont ISS & accuchecks.home meds as below -: am labs * . Review of Systems - Review of Systems Constitutional: malaise. negative: fever, chills, sweats, weakness, other ENT: negative: Ear Pain, Ear Discharge, Nose Pain, Nose Discharge, Nose Congestion, Mouth Pain, Mouth Swelling, Throat Pain, Throat Swelling, Other Respiratory: negative: Cough, Dry, Shortness of Breath, Hemoptysis, SOB with Excertion, Pleuritic Pain, Sputum, Wheezing Cardiovascular: negative: chest pain, palpitations, orthopnea, paroxysmal nocturnal dyspnea, edema, light headedness, other Gastrointestinal: Abdominal Pain. negative: Nausea, Vomiting, Diarrhea, Constipation, Melena, Hematochezia, Other Genitourinary: negative: Dysuria, Frequency, Incontinence, Hematuria, Retention , Other Musculoskeletal: negative: Neck Pain, Shoulder Pain, Arm Pain, Back Pain, Hand Pain, Leg Pain, Foot Pain, Other Skin: negative: Rash, Lesions, Braydon, Bruising, Other Neurological: negative: Weakness, Numbness, Incoordination, Change in Speech, Confusion, Seizures, Other - Medications/Allergies Allergies/Adverse Reactions: Allergies Allergy/AdvReac Type Severity Reaction Status Date / Time No Known Allergies Allergy Verified 11/01/15 01:32 Medications: Current Medications Acetaminophen (Tylenol) 650 mg PO Q4H PRN PRN Reason: Headache/Fever or Pain Hydrocodone Bitart/Acetaminophen ([place] 5/325) 1 tab PO Q4H PRN PRN Reason: Moderate Pain (4-6) Al Hydroxide/Mg Hydroxide (Maalox) 30 ml PO Q6H PRN PRN Reason: Heartburn or Indigestion Dextrose/Water (Dextrose 50%) 25 gm SLOW IVP PRN PRN PRN Reason: Hypoglycemia Famotidine (Pepcid) 20 mg PO DAILY [facility] Last Admin: 10/14/17 08:56 Dose: 20 mg Glucagon (Glucagon) 1 mg IM PRN PRN PRN Reason: Hypoglycemia Guaifenesin (Robitussin Sf) 200 mg PO Q4H PRN PRN Reason: Cough Heparin Sodium (Porcine) (Heparin) 5,000 units SC BID [facility] Last Admin: 10/14/17 08:56 Dose: 5,000 units Hydralazine HCl (Apresoline) 10 mg SLOW IVP Q4H PRN PRN Reason: Systolic BP > 180 Dextrose/Water (D5w) 1,000 mls @ 0 mls/hr IV .Q0M PRN; As Directed PRN Reason: Hypoglycemia Piperacillin Sod/Tazobactam (Sod 2.25 gm/ Sodium Chloride) 100 mls @ 200 mls/ hr IVPB 0800,2000 [facility] Last Admin: 10/14/17 08:51 Dose: 100 mls Vancomycin HCl 1.5 gm/ Sodium (Chloride) 300 mls @ 200 mls/hr IVPB WILLCALL [facility]I Vancomycin HCl 1.25 gm/ Sodium (Chloride) 250 mls @ 166.667 mls/hr IVPB [facility]I Vancomycin HCl 1 gm/ Device 200 mls @ 200 mls/hr IVPB WILLCALL [facility] Vancomycin HCl 750 mg/ Sodium (Chloride) 250 mls @ 250 mls/hr IVPB WILLCALL [facility] Insulin Human Lispro (Humalog) 0 units SC .MODERATE SLIDING SC PRN PRN Reason: Moderate Correctional Scale Last Admin: 10/14/17 12:51 Dose: 2 unit Insulin Human Lispro (Humalog) 0 units SC .BEDTIME SLIDING SC PRN PRN Reason: Bedtime Correctional Scale Loperamide HCl (Imodium) 2 mg PO PRN PRN PRN Reason: Diarrhea/Loose Stools Magnesium Hydroxide (Milk Of Magnesium) 30 ml PO DAILYPRN PRN PRN Reason: Constipation Miscellaneous Medication (Pharmacy To Dose) 1 each IVPB PRN PRN PRN Reason: Pharmacy to dose Hold Vancomycin For (Level >20) 0 each FS .AT DIALYSIS [facility] Ondansetron HCl (Zofran Odt) 4 mg PO Q6H PRN PRN Reason: Nausea/Vomiting Ondansetron HCl (Zofran) 4 mg IVP Q6H PRN PRN Reason: Nausea/Vomiting Senna (Senokot) 2 tab PO HSPRN PRN PRN Reason: Constipation Sodium Chloride (Flush - Normal Saline) 10 ml IVF Q12HR [facility] Last Admin: 10/14/17 08:57 Dose: 10 ml Sodium Chloride (Flush - Normal Saline) 10 ml IVF PRN PRN PRN Reason: Saline Flush Zolpidem Tartrate (Ambien) 5 mg PO HSPRN PRN PRN Reason: Insomnia
--- NOTE | 2017-10-14 13:27 | CON ---
DATE OF CONSULTATION: 10/14/2017 HISTORY OF PRESENT ILLNESS: Mr. Hernandez is a 57-year-old male with ESRD - currently on main tenance hemodialysis and admitted for sepsis syndrome. He presented with fever. Examination of the right leg showed some degree of james cellulitis. He has also foot lesion noted. This could be an ab scess. He has been started on empiric IV antibiotics. He is feeling better this morning. We are no w consulted for his maintenance hemodialysis. His next dialysis is Sunday. REVIEW OF SYSTEMS: No chest pain. Positive for fever and chills. No nausea, no vomiting, no diarrh ea or constipation. Positive for right leg tenderness. Appetite and energy level is fair. No heada rubi, no diplopia, no diarrhea, no dysuria, no urinary frequency. No abdominal pain. MEDICATIONS: The patient is currently on the following medicine: 1. [place] 5/325 q.4 hours p.r.n. 2. Pepcid 20 mg daily. 3. Heparin 5000 units subcu b.i.d. 4. Humalog sliding scale. 5. Loperamide p.r.n. 6. Status post IV vancomycin p.r.n. 7. Zosyn 2.25 grams IV q.12 hours. PAST MEDICAL HISTORY: 1. ESRD secondary to diabetic nephropathy on maintenance hemodialysis. 2. Type 2 diabetes mellitus. 3. Status post congestive heart failure. 4. Status post cerebrovascular accident. 5. Status post seizure disorder. 6. Peripheral vascular disease. PAST SURGICAL HISTORY: 1. Status post multiple toe amputation - right. 2. Status post left toe amputation. 3. Status post AV fistula placement. 4. Status post cuffed dialysis catheter placement. 5. Status post debridement of right foot ulcer. 6. Status post laparoscopic cholecystectomy. 7. Status post I&D of diabetic right foot plantar abscess with removal of foreign body. SOCIAL HISTORY: The patient lives in [place], . He is medically disabled. Education high school. No IV drug abuse. Status post blood transfusion. 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 ALLERGIES: None. TRAUMA: None. IMMUNIZATIONS: Up to date. HOSPITALIZATIONS: Please see past medical history. FAMILY HISTORY: No family history of ESRD. PHYSICAL EXAMINATION: VITAL SIGNS: Blood pressure is noted at 149/58, heart rate 71, respiratory rate 18, temperature 98.1 , pulse ox 98%. GENERAL: Noted to be awake, supine, comfortable, not in overt distress. The patient is obese. SKIN: Adequate turgor. HEENT: He has slightly pale conjunctivae, anicteric sclerae. NECK: No neck mass, no carotid bruits, no JVD. CHEST: No deformities. LUNGS: Clear breath sounds. HEART: Normal sinus rhythm. No murmur, no gallops or rubs. ABDOMEN: Globular, soft, nontender, no masses. EXTREMITIES: No edema. Positive for right toe amputations. Mild erythema of the right leg and posi tive for tenderness. He has noted an abscess? on the right foot. NEUROLOGIC: Awake, oriented to 3 spheres. Moving all extremities. No tremors, no asterixis, no alvino itz. LABORATORY DATA: Of 10/14/2017, white count 10.7, hemoglobin 10.7. Sodium 131, potassium 3.7, chlor prabhjot 94, carbon dioxide 24, BUN 41, creatinine 6.81, glucose 258, calcium 7.8, AST 192, ALT 99, albumi n 3.2. ASSESSMENT AND PLAN: 1. Right foot infection/cellulitis - on IV antibiotics. Awaiting ID and surgical consult. He may n eed a debridement of the right foot abscess. 2. End-stage renal disease, stable. We will continue current Sunday, Sunday, Sunday hemodialysis . Review of the last Kt/V suggests he is adequately dialyzed with the current dialysis regimen. Agr ee with current management.
--- NOTE | 2017-10-14 23:38 | CON ---
DATE OF CONSULTATION: 10/14/2017 REASON FOR CONSULTATION: Right foot infection. HISTORY OF PRESENT ILLNESS: A 57-year-old patient whom I had seen in the recent past when he present ed with a history of type 2 diabetes mellitus, end-stage renal disease on hemodialysis, and chronic u lcer in the bottom aspect of the first MPJ right side treated in the past. In 2013, I have managed h im for complications related to the ulcerated area. In 04/05/2017, he was admitted with inflammatory process bottom of the right foot. MRI showed evidence of foreign bodies. Dr. Wood did removal of wooden foreign body, but there was no evidence of osteomyelitis and he was released with a wound VAC in place. The wound really improved markedly and was quite small and not causing any symptoms until the day of admission when he developed fever, chills, nausea, and vomiting. Although H&P on admissi on, it stated that there was gradual worsening of the wound. The patient told me himself that the wo rsening was sudden and occurred pretty much the day before admission. Initial findings demonstrated BP 182/73, temperature 102.9. He was diaphoretic and warm. Neck, lungs, and heart exam was normal e xcept for tachycardia. Abdomen is a little bit of tenderness in left lower quadrant, and there was t he small ulcer at the bottom of the right foot lateral area. Plantar aspect with the surrounding whi tened area, which was somewhat foul smelling. Chest x-ray was normal. Abdomen and pelvis CT was not remarkable. Foot x-ray was not remarkable. The patient has been started on vancomycin and Zosyn. Currently, he is feeling better. Denies headaches, visual symptoms, sore throat, odynophagia, dyspha monica, no cough or sputum production or chest pain. No abdominal pain, diarrhea. A little bit of pain in the right foot. PAST MEDICAL HISTORY: Type 2 diabetes mellitus, neuropathy, partial amputations of the right foot, e nd-stage renal disease on hemodialysis with AV fistula, retinopathy, hypertension, prior CVA and TIA, residual left-sided weakness, hemorrhagic stroke in 2005. PAST SURGICAL HISTORY: Dialysis access placement, cholecystectomy, tonsillectomy, toe amputations of his right side. Eventual transmetatarsal amputation right side and third left toe amputation. ALLERGIES: None. SOCIAL HISTORY: Lives with . Former smoker. No other drug use. FAMILY HISTORY: Noncontributory. MEDICATIONS: In addition to Zosyn, vancomycin, he is on p.r.n. medications and Humulin insulin, onda nsetron, zolpidem. PHYSICAL EXAMINATION: VITAL SIGNS: Have been normal since admission except for systolic pressure elevation. SKIN: Findings showed area of erythema in the dorsal aspect of the left first toe and the ulceration per se measures only 1 cm, but surrounding it, there is a light-yellow area of which is round shaped surrounding this central ulcerated region. The ulcer itself is packed. I was not able to probe any bone from probe in the ulcer. There is no erythema noted around this central area. Pulses are dimi nished in dorsalis pedis, but palpable. No lymphadenopathy. Eye movements are conjugate. Eye sight is markedly reduced in both sides. Oral cavity is moist. No [place] teeth remaining in place. NECK: Supple. LUNGS: Symmetric clear breath sounds. CARDIOVASCULAR: S1, S2, regular rate. No S3, S4. ABDOMEN: Soft and not distended or tender. No ascites. No bladder distention. Pulses are 1+ in po pliteals. He is able to move extremities without impediment. His cognitive function appears to be i ntact. LABORATORY DATA: White cell count 12.8 down to 10.7, hemoglobin 11, platelets 181 with initially 82% neutrophils now 68%. Sodium 131, creatinine 6.81. Bilirubin 1.3, AST 192 and ALT 99, alkaline phos phatase 237. CRP 13, albumin 3.2. Urinalysis with wbc 11-20. Microbiology with 2 sets of blood cul tures with pending results. Urine culture no growth at 12 hours. ASSESSMENT: 1. Type 2 diabetes with complications in the lower extremities as noted above. 2. Sudden worsening of the ulcer in the right foot with some drainage, pain associated with fever. DISCUSSION: Differential diagnosis includes superficial abscess versus a deeper infection inflammato ry process right foot plus/minus bacteremia. We will order an MRI of the right foot for reevaluation , may need surgical debridement depending on findings, monitor blood cultures. Continue current trip men. Other sources of the inflammatory process are much less likely.
[2017-10-15] MEDS ORDERED: diphenhydrAMINE 25 MG CAP PO SCH (00:01)
[2017-10-15 04:42] LABS: #Eosinphils 0.2 thou/uL (0.0-0.7); #Lymphocytes 2.3 thou/uL (1.20-3.40); #Monocytes 0.7 thou/uL (0.11-0.59); #Neutrophils 6.6 thou/uL (1.40-6.50); %Basophils 0.4 % (0.0-1.0); %Eosinophils 1.8 % (0.0-10.0); %Lymphocytes 23.2 % (21.0-51.0); %Monocytes 7.2 % (0.0-10.0); %Neutrophils 67.3 % (42.0-75.0); Hemoglobin 10.4 g/dL (14.0-18.0); Mean Corpuscular HGB CONC 32.9 g/dL (32.0-36.0); Mean Corpuscular Hemoglobin 31.8 pg (27.0-31.0); Mean Corpuscular Volume 96.6 fl (80.0-94.0); Mean Platelet Volume 7.1 fL (7.4-10.4); Platelet Count 199 thou/uL (130-400); RBC Distribution Width 13.5 % (11.5-14.5); Red Blood Cell (RBC) Count 3.28 mill/uL (4.70-6.10); White Blood Cell (WBC) Count 9.8 thou/uL (4.8-10.8)
[2017-10-15 05:36] LABS: Anion Gap 18 mmol/L (10-20); BUN (Urea Nitrogen) 50 mg/dL (8.4-25.7); Calc. Creatinine Clearance 16 mL/min (70-130); Calcium 7.7 mg/dL (7.8-10.44); Carbon Dioxide 23 mmol/L (22-29); Chloride 92 mmol/L (98-107); Estimated GFR-MDRD 7; Glucose 183 mg/dL (70-105); Potassium 3.9 mmol/L (3.5-5.1); Sodium 129 mmol/L (136-145)
--- NOTE | 2017-10-15 08:45 | PRG ---
DATE OF SERVICE: 10/15/2017 SERVICE: Renal Medicine. SUBJECTIVE: Mr. Hernandez is a 57-year-old male with ESRD, followed by the Renal Service for his maintenance hemodialysis. He was initially admitted for right foot infection. ID has been consu lted. A planned MRI of the right foot has been ordered and may need a possible surgical debridement of the right foot abscess. We are following him up for his dialysis. He is currently at the dialysi s and tolerating said treatment. I am at the bedside supervising his dialysis. The patient has no c omplaints of chest pain or shortness of breath. OBJECTIVE: VITAL SIGNS: Blood pressure 161/63, heart rate 67, respiratory rate 20, temperature 97.8, pulse ox 9 8%. GENERAL EXAM: Awake, supine, comfortable, obese. SKIN: Adequate turgor. ABDOMEN: He has pinkish conjunctivae, anicteric sclerae. NECK: No neck mass, no carotid bruits, no JVD. CHEST: No deformities. LUNGS: Clear breath sounds, no wheezing, no crackles. HEART: Normal sinus rhythm. No murmur, no gallops, no rubs. ABDOMEN: Globular, soft, nontender, no masses. EXTREMITIES: No edema. Status post toe amputation, right foot. Mild erythema on the right leg. Medications of 10/15/2017 were reviewed. LABORATORY DATA: Laboratories of 10/15/2017, white count 9.8, hemoglobin 10.4, hematocrit 31.7, sodi um 129, potassium 3.9, chloride 92, carbon dioxide 23, BUN 50, creatinine 8.19, glucose 183, calcium 7.7. ASSESSMENT AND PLAN: 1. End-stage renal disease, stable. Tolerating current hemodialysis regimen. My plan is to do a 4- hour hemodialysis Sunday, Sunday, and Sunday. Fluid removal only as tolerated. 2. Borderline anemia. We will continue to observe. Holding off Epogen for the moment. 3. Right foot infection. ID following - patient is on empiric IV antibiotics. We will recheck basic metabolic panel and CBC in a.m.
[2017-10-15] MEDS: Heparin 5,000 UNITS/ML VIAL SC SCH ×2 (12:53→20:17)
[2017-10-15] MEDS: Piperacillin/Tazobactam 2.25 GM in Sodium Chloride 0.9% 100 ML IVPB SCH ×2 (12:56→15:25)
[2017-10-15] MEDS: Famotidine 20 MG TAB PO SCH (13:28)
--- NOTE | 2017-10-15 13:48 | PDOC.PN ---
- Subjective Encounter Start Date: 10/15/17 Encounter Start Time: 13:46 Subjective: feels ok. no new complaints.no chest pain/SOB -: no fever/chills.no pain in foot.no N/V/D - Objective Resuscitation Status: Resuscitation Status FULL:Full Resuscitation MAR Reviewed: Yes Vital Signs & Weight: Vital Signs (12 hours) Temp Pulse Resp BP Pulse Ox 10/15/17 12:59 98.3 F 71 14 152/70 H 98 10/15/17 07:40 97.8 F 67 20 98 10/15/17 07:32 97.8 F 67 20 161/63 H 98 10/15/17 04:57 96 10/15/17 04:26 98 F 68 18 151/70 H 98 I&O: 10/14/17 10/15/17 10/16/17 06:59 06:59 06:59 Intake Total 1440 600 Balance 1440 600 Result Diagrams: 10/15/17 04:09 10/15/17 04:09 Additional Labs: Accuchecks 10/15/17 10/15/17 10/14/17 13:07 04:27 20:46 POC Glucose 124 H 203 H 254 H 10/14/17 15:55 POC Glucose 232 H Microbiology 10/13/17 19:05 Urine Straight Catheter Urine Culture - Preliminary NO GROWTH AT 12 HOURS 10/13/17 18:45 Venous blood - Right Arm Blood Culture - Preliminary Specimen has been received and culture in progress. No Growth to date. 10/13/17 18:45 Venous blood - Right Arm Blood Culture - Preliminary NO GROWTH AT 48 HOURS 10/13/17 18:34 Venous blood - Right Arm Blood Culture - Preliminary Specimen has been received and culture in progress. No Growth to date. 10/13/17 18:34 Venous blood - Right Arm Blood Culture - Preliminary NO GROWTH AT 48 HOURS Laboratory Tests 10/13/17 10/13/17 10/14/17 18:44 18:44 04:14 WBC 12.8 H Sodium 129 L 131 L 10/14/17 10/15/17 10/15/17 04:14 04:09 04:09 WBC 10.7 9.8 Sodium 129 L LABS REVIEWED Phys Exam - Physical Examination Constitutional: NAD seen in HD HEENT: PERRLA, moist MMs, sclera anicteric, oral pharynx no lesions Neck: no nodes, no JVD, supple, full ROM Respiratory: no wheezing, no rales, no rhonchi, clear to auscultation bilateral Cardiovascular: RRR, no significant murmur, no rub Gastrointestinal: soft, non-tender, no distention, positive bowel sounds Musculoskeletal: no edema, pulses present R foot plantar wound w clear dressing.no foot/leg erythema Neurological: non-focal, normal sensation, moves all 4 limbs Psychiatric: normal affect, A&O x 3 Skin: no rash Dx/Plan (1) Sepsis Code(s): A41.9 - SEPSIS, UNSPECIFIED ORGANISM Status: Acute (2) Foot abscess, right Code(s): L02.611 - CUTANEOUS ABSCESS OF RIGHT FOOT Status: Acute (3) DM2 (diabetes mellitus, type 2) Status: Acute Qualifiers: Diabetes mellitus residential insulin use: with residential use Diabetes mellitus complication status: with diabetic arthropathy Diabetes mellitus complication detail: with neuropathic arthropathy Qualified Code(s): E11.618 - Type 2 diabetes mellitus with other diabetic arthropathy; Z79.4 - exterminator ( current) use of insulin; Z79.4 - longterm (current) use of insulin; Z79.4 - exterminator (current) use of insulin; Z79.4 - exterminator (current) use of insulin (4) Diabetic neuropathic arthropathy Code(s): E11.610 - TYPE 2 DIABETES MELLITUS W DIABETIC NEUROPATHIC ARTHROPATHY Status: Chronic (5) ESRD (end stage renal disease) on dialysis Code(s): N18.6 - END STAGE RENAL DISEASE; Z99.2 - DEPENDENCE ON RENAL DIALYSIS Status: Chronic (6) HTN (hypertension) Code(s): I10 - ESSENTIAL (PRIMARY) HYPERTENSION Status: Chronic Qualifiers: Hypertension type: essential hypertension Qualified Code(s): I10 - Essential (primary) hypertension (7) Anemia in chronic kidney disease Code(s): N18.9 - CHRONIC KIDNEY DISEASE, UNSPECIFIED; D63.1 - ANEMIA IN CHRONIC KIDNEY DISEASE Status: Chronic Qualifiers: Chronic kidney disease stage: on chronic dialysis Qualified Code(s): N18.6 - End stage renal disease; D63.1 - Anemia in chronic kidney disease; D63.1 - Anemia in chronic kidney disease; Z99.2 - Dependence on renal dialysis; Z99.2 - Dependence on renal dialysis; Z99.2 - Dependence on renal dialysis; Z99.2 - Dependence on renal dialysis - Plan continue antibiotics, PT/OT, out of bed/ambulate, DVT proph w/SCDs cont empiric ABx.MRI foot to r/o osteomyelitis -: will katie need I&D.wound care consulted.GS consulted -: Hemodialysis per schedule.monitor renal Fx -: Hemodynamically stable. -: cont home meds as below * . Review of Systems - Review of Systems Constitutional: negative: fever, chills, sweats, weakness, malaise, other ENT: negative: Ear Pain, Ear Discharge, Nose Pain, Nose Discharge, Nose Congestion, Mouth Pain, Mouth Swelling, Throat Pain, Throat Swelling, Other Respiratory: negative: Cough, Dry, Shortness of Breath, Hemoptysis, SOB with Excertion, Pleuritic Pain, Sputum, Wheezing Cardiovascular: negative: chest pain, palpitations, orthopnea, paroxysmal nocturnal dyspnea, edema, light headedness, other Gastrointestinal: negative: Nausea, Vomiting, Abdominal Pain, Diarrhea, Constipation, Melena, Hematochezia, Other Genitourinary: negative: Dysuria, Frequency, Incontinence, Hematuria, Retention , Other Musculoskeletal: negative: Neck Pain, Shoulder Pain, Arm Pain, Back Pain, Hand Pain, Leg Pain, Foot Pain, Other Skin: negative: Rash, Lesions, Braydon, Bruising, Other Neurological: negative: Weakness, Numbness, Incoordination, Change in Speech, Confusion, Seizures, Other - Medications/Allergies Allergies/Adverse Reactions: Allergies Allergy/AdvReac Type Severity Reaction Status Date / Time No Known Allergies Allergy Verified 11/01/15 01:32 Medications: Current Medications Acetaminophen (Tylenol) 650 mg PO Q4H PRN PRN Reason: Headache/Fever or Pain Hydrocodone Bitart/Acetaminophen (Fritch 5/325) 1 tab PO Q4H PRN PRN Reason: Moderate Pain (4-6) Al Hydroxide/Mg Hydroxide (Maalox) 30 ml PO Q6H PRN PRN Reason: Heartburn or Indigestion Dextrose/Water (Dextrose 50%) 25 gm SLOW IVP PRN PRN PRN Reason: Hypoglycemia Famotidine (Pepcid) 20 mg PO DAILY [facility] Last Admin: 10/15/17 13:28 Dose: 20 mg Glucagon (Glucagon) 1 mg IM PRN PRN PRN Reason: Hypoglycemia Guaifenesin (Robitussin Sf) 200 mg PO Q4H PRN PRN Reason: Cough Heparin Sodium (Porcine) (Heparin) 5,000 units SC BID [facility] Last Admin: 10/15/17 12:53 Dose: Not Given Hydralazine HCl (Apresoline) 10 mg SLOW IVP Q4H PRN PRN Reason: Systolic BP > 180 Dextrose/Water (D5w) 1,000 mls @ 0 mls/hr IV .Q0M PRN; As Directed PRN Reason: Hypoglycemia Vancomycin HCl 1.5 gm/ Sodium (Chloride) 300 mls @ 200 mls/hr IVPB [facility] Vancomycin HCl 1.25 gm/ Sodium (Chloride) 250 mls @ 166.667 mls/hr IVPB [facility] Last Admin: 10/15/17 13:27 Dose: 250 mls Vancomycin HCl 1 gm/ Device 200 mls @ 200 mls/hr IVPB [facility] Vancomycin HCl 750 mg/ Sodium (Chloride) 250 mls @ 250 mls/hr IVPB [facility] Piperacillin Sod/Tazobactam (Sod 2.25 gm/ Sodium Chloride) 100 mls @ 200 mls/ hr IVPB 0200,1400 [facility] Insulin Human Lispro (Humalog) 0 units SC .MODERATE SLIDING SC PRN PRN Reason: Moderate Correctional Scale Last Admin: 10/14/17 16:50 Dose: 4 unit Insulin Human Lispro (Humalog) 0 units SC .BEDTIME SLIDING SC PRN PRN Reason: Bedtime Correctional Scale Last Admin: 10/14/17 21:59 Dose: 3 unit Loperamide HCl (Imodium) 2 mg PO PRN PRN PRN Reason: Diarrhea/Loose Stools Magnesium Hydroxide (Milk Of Magnesium) 30 ml PO DAILYPRN PRN PRN Reason: Constipation Miscellaneous Medication (Pharmacy To Dose) 1 each IVPB PRN PRN PRN Reason: Pharmacy to dose Hold Vancomycin For (Level >20) 0 each FS .[facility] Ondansetron HCl (Zofran Odt) 4 mg PO Q6H PRN PRN Reason: Nausea/Vomiting Ondansetron HCl (Zofran) 4 mg IVP Q6H PRN PRN Reason: Nausea/Vomiting Senna (Senokot) 2 tab PO HSPRN PRN PRN Reason: Constipation Sodium Chloride (Flush - Normal Saline) 10 ml IVF Q12HR [facility] Last Admin: 10/15/17 13:28 Dose: 10 ml Sodium Chloride (Flush - Normal Saline) 10 ml IVF PRN PRN PRN Reason: Saline Flush Zolpidem Tartrate (Ambien) 5 mg PO HSPRN PRN PRN Reason: Insomnia
[2017-10-15] MEDS ORDERED: hydrALAZINE 20 MG/ML VIAL SLOW IVP PRN (13:55)
--- NOTE | 2017-10-15 15:17 | MRI ---
MRI OF THE RIGHT MID FOOT AND FOREFOOT WITHOUT IV CONTRAST: INDICATION: History of right foot ulcer with drainage and fever. COMPARISON: Prior radiographs of the right foot dated 10/13/17. FINDINGS: There are partial amputations of the 1st through 5th digits. There is scattered osteoarthrosis of th e mid foot. There is a plantar-based ulceration underlying the plantar aspect of the distal cuboid a nd proximal 4th and 5th metatarsals. The ulceration approaches the base of the osseous structures wi thout definite contact that measures approximately 2.7 x 4.2 cm. No definite drainable fluid collect ion is evident. Susceptibility artifact from vascular clips is seen within the plantar soft tissues underlying the medial cuneiform. There is soft tissue swelling along the plantar medial base of the great toe and medial cuneiform which is nonspecific and may reflect changes of cellulitis. No overt marrow signal abnormality or destructive osseous changes are seen to suggest the presence of osteomyelitis. Some limitations to the exam due to motion artifact as well as susceptibility artifact from vascular clips. IMPRESSION: 1. Large plantar-based ulceration overlying the mid foot without a definite drainable fluid collecti on. Or changes of osteomyelitis. 2. Soft tissue swelling of the plantar medial aspect of the residual great toe 1st ray which may ref lect changes of cellulitis. POS: [facility]
[2017-10-15] MEDS: hydrALAZINE 25 MG TAB PO SCH ×2 (15:26→20:16)
[2017-10-15] MEDS: cloNIDine 0.1 MG TAB PO SCH ×2 (15:28→20:16)
[2017-10-15] MEDS: HumaLOG 300 UNITS/3 ML VIAL SC PRN ×2 (18:03→20:16)
--- NOTE | 2017-10-15 19:10 | PRG ---
DATE OF SERVICE: 10/15/2017 SUBJECTIVE: Mr. Hernandez is doing well. He denies any headaches, no respiratory symptoms or abdomina l pain, no shortness of breath. PHYSICAL EXAMINATION: VITAL SIGNS: Normal. LUNGS: Clear. HEART: S1, S2, regular rate. ABDOMEN: Soft. EXTREMITIES: Foot without changes. LABORATORY DATA: The culture from the urine showed Staph aureus, straight catheter was less than 500 0 CFUs probably contaminant or colonizer. The MRI showed no evidence of osteomyelitis or abscess. ASSESSMENT AND DISCUSSION: Type 2 diabetes with a worsening ulcer, right foot. Some drainage and pa in with fever. The clinical and radiological findings are consistent with cellulitis, but no evidenc e of deep involvement. At this point, I would recommend switching to oral Augmentin and clindamycin for discharge planning. Treat for approximately 10 days.
[2017-10-16] MEDS: Piperacillin/Tazobactam 2.25 GM in Sodium Chloride 0.9% 100 ML IVPB SCH ×2 (02:23→14:51)
[2017-10-16 05:15] LABS: #Eosinphils 0.2 thou/uL (0.0-0.7); #Lymphocytes 1.5 thou/uL (1.20-3.40); #Monocytes 0.6 thou/uL (0.11-0.59); #Neutrophils 4.9 thou/uL (1.40-6.50); %Basophils 0.2 % (0.0-1.0); %Eosinophils 2.5 % (0.0-10.0); %Monocytes 8.3 % (0.0-10.0); %Neutrophils 67.9 % (42.0-75.0); Hemoglobin 10.9 g/dL (14.0-18.0); Mean Corpuscular HGB CONC 34.3 g/dL (32.0-36.0); Mean Corpuscular Hemoglobin 33.7 pg (27.0-31.0); Mean Corpuscular Volume 98.2 fl (80.0-94.0); Mean Platelet Volume 7.2 fL (7.4-10.4); Platelet Count 209 thou/uL (130-400); RBC Distribution Width 13.7 % (11.5-14.5); Red Blood Cell (RBC) Count 3.24 mill/uL (4.70-6.10); White Blood Cell (WBC) Count 7.2 thou/uL (4.8-10.8)
[2017-10-16 05:36] LABS: Anion Gap 14 mmol/L (10-20); BUN (Urea Nitrogen) 31 mg/dL (8.4-25.7); Calc. Creatinine Clearance 22 mL/min (70-130); Calcium 7.8 mg/dL (7.8-10.44); Carbon Dioxide 24 mmol/L (22-29); Chloride 96 mmol/L (98-107); Estimated GFR-MDRD 10; Glucose 495 mg/dL (70-105); Potassium 4.3 mmol/L (3.5-5.1); Sodium 130 mmol/L (136-145)
[2017-10-16] MEDS: HumaLOG 300 UNITS/3 ML VIAL SC PRN ×2 (05:39→17:39)
[2017-10-16] MEDS: hydrALAZINE 25 MG TAB PO SCH ×2 (08:29→17:31)
[2017-10-16] MEDS: cloNIDine 0.1 MG TAB PO SCH ×2 (08:29→17:31)
[2017-10-16] MEDS: Famotidine 20 MG TAB PO SCH (08:29)
[2017-10-16] MEDS: Heparin 5,000 UNITS/ML VIAL SC SCH (08:29)
[2017-10-16] MEDS ORDERED: Lisinopril 10 MG TAB PO SCH (09:00)
[2017-10-16] MEDS ORDERED: Epoetin (ESRD) 20,000 UNITS/ML SC SCH (09:30)
--- NOTE | 2017-10-16 12:05 | HP ---
DATE OF SERVICE: 10/16/2017 SUBJECTIVE: The patient is a 57-year-old male with ESRD and being followed up for his maint enance hemodialysis. I examined the patient today. There is no indication for any acute dialytic in tervention. He received dialysis yesterday without any difficulty. He has a right foot infection th at he is receiving IV antibiotics. We are waiting for surgical input for possible surgical debrideme nt of this right foot. No other complaints today, he is feeling better. OBJECTIVE: VITAL SIGNS: Blood pressure 144/68, heart rate 67, respiratory rate 16, temperature 98.1, pulse ox 9 8%. GENERAL: Awake, alert, supine, comfortable, not in distress. SKIN: Adequate turgor. HEENT: He has slightly pale conjunctivae, anicteric sclerae. NECK: No neck mass, no carotid bruits, no JVD. CHEST: No deformities. LUNGS: Clear breath sounds, no wheezing, no crackles. HEART: Normal sinus rhythm. No murmur, no gallops or rubs. ABDOMEN: Globular, soft, nontender, no masses. EXTREMITIES: No edema, no deformities. He is status post multiple toe amputations of the right foot. He has also a ? of abscess on the right foot. MEDICATIONS: 10/16/2017 - Reviewed. LABORATORY: 10/16/2017 - White count 7.3, hemoglobin 10.9. Sodium 130, potassium 4.3, chloride 96, carbon dioxide 24, BUN 31, creatinine 6.11, glucose 495, calcium 7.8. ASSESSMENT AND PLAN: 1. Borderline anemia. We will start on maintenance Epogen at 7500 units subcutaneously every week. 2. Right foot infection on IV antibiotics. Awaiting surgical input. 3. End-stage renal disease, stable. Continue current Sunday, Sunday, Sunday hemodialysis. He is tolerating the said dialysis regimen. Overall, prognosis remains fair.
--- NOTE | 2017-10-16 12:33 | PDOC.PN ---
- Subjective Encounter Start Date: 10/16/17 Encounter Start Time: 12:45 Subjective: Patient without complaint. No pain from the foot ulcer. No further fever/N/ -: V/chills. - Objective Resuscitation Status: Resuscitation Status FULL:Full Resuscitation MAR Reviewed: Yes Vital Signs & Weight: Vital Signs (12 hours) Temp Pulse Resp BP BP BP Pulse Ox 10/16/17 11:38 97.9 F 69 16 120/70 98 10/16/17 08:30 144/68 H 10/16/17 08:29 67 144/68 H 10/16/17 08:00 98.1 F 67 16 97 10/16/17 07:34 98.1 F 67 16 144/68 H 98 I&O: 10/15/17 10/16/17 10/17/17 06:59 06:59 06:59 Intake Total 1440 2470 Output Total 1800 Balance 1440 670 Result Diagrams: 10/16/17 04:16 10/16/17 04:16 Additional Labs: Accuchecks 10/16/17 10/16/17 10/15/17 11:40 04:27 19:54 POC Glucose 286 H 502 H 404 H 10/15/17 10/15/17 16:54 13:07 POC Glucose 349 H 124 H Phys Exam - Physical Examination Constitutional: NAD HEENT: moist MMs Respiratory: no wheezing, no rales, no rhonchi Cardiovascular: RRR, no significant murmur Gastrointestinal: soft, positive bowel sounds right foot wound with adherent dressing Psychiatric: normal affect, A&O x 3 Dx/Plan (1) Sepsis Code(s): A41.9 - SEPSIS, UNSPECIFIED ORGANISM Status: Acute (2) Foot abscess, right Code(s): L02.611 - CUTANEOUS ABSCESS OF RIGHT FOOT Status: Acute (3) DM2 (diabetes mellitus, type 2) Status: Acute Qualifiers: Diabetes mellitus snf insulin use: with snf use Diabetes mellitus complication status: with diabetic arthropathy Diabetes mellitus complication detail: with neuropathic arthropathy Qualified Code(s): E11.610 - Type 2 diabetes mellitus with diabetic neuropathic arthropathy; Z79.4 - bioinformatics specialist (current) use of insulin; Z79.4 - bioinformatics specialist (current) use of insulin; Z79.4 - bioinformatics specialist (current) use of insulin; Z79.4 - snf (current) use of insulin (4) Diabetic neuropathic arthropathy Code(s): E11.610 - TYPE 2 DIABETES MELLITUS W DIABETIC NEUROPATHIC ARTHROPATHY Status: Chronic (5) ESRD (end stage renal disease) on dialysis Code(s): N18.6 - END STAGE RENAL DISEASE; Z99.2 - DEPENDENCE ON RENAL DIALYSIS Status: Chronic (6) HTN (hypertension) Code(s): I10 - ESSENTIAL (PRIMARY) HYPERTENSION Status: Chronic Qualifiers: Hypertension type: essential hypertension Qualified Code(s): I10 - Essential (primary) hypertension - Plan cont current plan of care, continue antibiotics, DVT proph w/SCDs Await General Surgery assessment and possible surgery. Once ok for d/c can -: switch to oral Augmentin and Clindamycin. * . - Discharge Day Encounter end time: 13:00
[2017-10-16 17:14] VITALS: BP 125/65; TEMP 98.1
--- NOTE | 2017-10-16 22:00 | HP ---
HISTORY OF PRESENT ILLNESS: Timothy Hernandez is a 57-year-old male diabetic type 2, end-stage renal disease on maintenance hemodialysis Sunday, Sunday, and Sunday. He is followed by Dr. Dalal. I saw him 03/2017, when he had a foreign body in his right foot requiring removal. He has had a proximal plantar midfoot ulceration since that time, this has not healed. He states it bec moi worse recently and is admitted to the hospital, received vancomycin and Zosyn. He has been seein g Dr. Stearns. This hospitalization, he has had plain x-rays of his foot that are unremarkable. MRI s can reveals the wound without osteomyelitis. He remains afebrile. Wound has not been cultured. Blo od cultures negative to date. ALLERGIES: None. TOBACCO: None. ALCOHOL: None. MEDICATIONS: At home; hydralazine, clonidine, sevelamer, isosorbide, insulin, Lantus, Humalog insuli n, Prozac, atorvastatin, aspirin and amlodipine. PAST SURGICAL HISTORY: Fistula left upper arm, cholecystectomy, tonsillectomy, partial toe amputatio ns both feet, chronic ulceration right foot, palpable pedal pulses no evidence of PAD. PHYSICAL EXAMINATION: VITAL SIGNS: Temperature 97.9, pulse 69, blood pressure 120/70, height 5 foot and 7 inches, and weig ht 252 pounds. HEAD, EARS, EYES, NOSE, AND THROAT: Unremarkable. LUNGS: Clear to auscultation. CARDIAC: Regular rate and rhythm without murmur or gallop. ABDOMEN: Soft, nontender. EXTREMITIES: Reveals palpable pedal pulses. No ankle edema. LYMPHATIC: Groins, axilla, neck without lymphadenopathy. NEUROLOGIC: Intact. Cranial nerves intact. SKIN: Color normal. Left foot and normal, right foot proximal plantar deep ulceration 2.5 cm extend ing to the deep plantar tissues. The wound is approximately 2.5 cm in diameter. There is no celluli tis. Deep cultures and submitted to microbiology. There is no cellulitis. This is a chronic wound. Normal saline wet to dry dressings applied. There is no indication of debridement. ASSESSMENT AND PLAN: Diabetic plantar ulcer, end-stage renal disease, diabetic mellitus type 2. Liane s has a poor prognosis long-term, but currently there is no indication for surgical debridement. We will continue intravenous antibiotics, vancomycin during dialysis and perhaps oral antibiotics per Dr Farrah Stearns. Final determination, however, per Dr. Stearns. He has seen this hospitalization. He will do daily wound care, washing with soap and water and apply normal saline wet to dry dressing (gauze not Nu Gauze). He should follow up with me in 2-3 weeks.
--- NOTE | 2017-10-17 02:50 | DIS ---
PRIMARY CARE PHYSICIAN: Dr. Alston at [facility]. PRIMARY ENTRY LEVEL BUYER: Dr. Dalal. REASON FOR ADMISSION: Sepsis and diabetic foot wound. DIAGNOSES AT DISCHARGE: 1. Sepsis, resolved. 2. Diabetic abscess of the right foot. 3. Diabetes mellitus type 2. 4. Diabetic neuropathic arthropathy. 5. End-stage renal disease on dialysis. 6. Hypertension. PROCEDURES: 1. Chest x-ray showing no acute disease. 2. CT of the abdomen and pelvis with contrast showing no acute findings. 3. X-ray 3 view of the right foot showing a stable appearance of the right foot without any subcutan eous gas or fracture. No evidence of osteomyelitis. 4. Ultrasound of the right upper quadrant showing hepatomegaly and fatty infiltration of the liver. 5. MRI of the right midfoot and forefoot without IV contrast showing large plantar based ulceration overlying the midfoot without definite drainable fluid collection. No changes of osteomyelitis. The re was some soft tissue swelling in the plantar medial aspect of the residual great toe first ray, wh ich may reflect some cellulitis. CONSULTATIONS: 1. Nephrology, Dr. Dalal. 2. Infectious Disease, Dr. Stearns. 3. General surgery, Dr. Wood. SUMMARY OF HOSPITAL COURSE: This 57-year-old male with end-stage renal disease on dialysis, also with diabetes with history of multiple foot infections in previous toe amputations. He came in with complaining of weakness, fever, chills, nausea, and vomiting, who had a right foot plantar aspe ct wound gradually getting worse. The patient was found to be in sepsis along with a draining ulcer on his foot. He had imaging as shown above to look for other sources of infection and to look for os teomyelitis. The patient was started on IV antibiotics and Dr. Stearns was consulted. Dr. Setarns recom mended an MRI to make sure there is no osteomyelitis without when that was negative. He recommended switching to oral Augmentin and clindamycin and discharge. We did consult General Surgery, Dr. Donte vizcaino. He did examine the wound and recommended no surgery at this point, just wound care at home with a ntibiotics. The patient did have a dialysis in the hospital by Dr. Dalal and he is doing well the day of discharge and is being discharged home. DISCHARGE MANAGEMENT: Discharged home. ACTIVITY: As tolerated. DIET: Diabetic, renal diet. He has had outpatient wound care or home health with wound care nurse if he needs it. MEDICATIONS: 1. Augmentin 500 mg 1 tablet daily for 10 days. He is to take this after dialysis on his dialysis d ays. 2. Clindamycin 300 mg 4 times a day, 40 tablets dispensed and patient is to resume all of his home m edications. 3. Amlodipine 10 mg daily. 4. Aspirin 325 mg daily. 5. Atorvastatin 10 mg at night. 6. Vitamin D3 of 1000 units daily. 7. Clonidine 0.1 mg twice a day. 8. Fluoxetine 20 mg daily. 9. Humalog sliding scale. 10. Hydralazine 100 mg 3 times a day. 11. Lantus 30 units twice a day. 12. Imdur 60 mg daily. 13. Renvela 800 mg 3 times a day. The patient is to follow up with Dr. Wood in his clinic in 2-[address] Alston as wel l as to follow up with Dr. Dalal for his routine dialysis.
== END 2017-10-16 17:54 | disposition home or self-care (01) | DRG 871 ==
LOC: ERS 18:20 → T4-A 22:13
PROVIDERS: ADMIT Internal Medicine; ATTEND Internal Medicine
PROC: 5A1D70Z Performance of Urinary Filtration, Intermittent, Less than 6 Hours Per Day (ICD-10-PCS; principal; 2017-10-15)
DX: A41.9 Sepsis, unspecified organism (principal); N18.6 End stage renal disease; I12.0 Hypertensive chronic kidney disease with stage 5 chronic kidney disease or end stage renal disease; L02.611 Cutaneous abscess of right foot; L03.115 Cellulitis of right lower limb; N25.81 Secondary hyperparathyroidism of renal origin; E11.621 Type 2 diabetes mellitus with foot ulcer; E11.610 Type 2 diabetes mellitus with diabetic neuropathic arthropathy; E11.22 Type 2 diabetes mellitus with diabetic chronic kidney disease; L97.519 Non-pressure chronic ulcer of other part of right foot with unspecified severity; Z99.2 Dependence on renal dialysis; Z79.82 Long term (current) use of aspirin; Z79.4 Long term (current) use of insulin; Z79.899 Other long term (current) drug therapy; Z89.422 Acquired absence of other left toe(s); Z89.421 Acquired absence of other right toe(s); D63.1 Anemia in chronic kidney disease; Z86.73 Personal history of transient ischemic attack (TIA), and cerebral infarction without residual deficits; E11.319 Type 2 diabetes mellitus with unspecified diabetic retinopathy without macular edema; E11.42 Type 2 diabetes mellitus with diabetic polyneuropathy; E66.01 Morbid (severe) obesity due to excess calories; Z68.39 Body mass index [BMI] 39.0-39.9, adult
CPT/HCPCS: 36415; 36416; 51701; 71045; 74177; 76705; 80048; 80053; 80202; 81003; 81015; 82550; 82553; 83605; 83690; 83735; 84484; 85025; 85652; 86140; 87040; 87070; 87077; 87086; 87186; 87205; 90935; 93005; 94760; 96365; 96367; 96375; A4216; G0257; J1644; J1815; J2270; J2543; J3370; J7050; Q4081

== ENCOUNTER 2017-12-16 22:48 | Inpatient (IN) | payer MEDICARE ==
--- NOTE | 2017-12-16 23:52 | RAD ---
RIGHT FOOT THREE VIEWS: History: Right foot pain. Injury on heel. FINDINGS/IMPRESSION: Amputation of the forefoot at the 1st metatarsal shaft and the proximal phalanges of second through 4 th toes. Chronic deformity at the second and third metatarsal phalangeal joints. Pes planus on the la teral view. Bulky osteophytosis throughout the mid foot. Small plantar heel spur. Ulceration at the plantar surface of the foot again demonstrated. Linear opacities projecting over th e plantar surface of the foot immediately distal to the area of ulceration are unchanged in appearanc e from the 10-13-17 study. Other findings are also stable. POS: [facility]
[2017-12-16 23:55] LABS: #Eosinphils 0.2 thou/uL (0.0-0.7); #Lymphocytes 2.2 thou/uL (1.20-3.40); #Monocytes 0.9 thou/uL (0.11-0.59); #Neutrophils 14.2 thou/uL (1.40-6.50); %Basophils 0.1 % (0.0-1.0); %Eosinophils 1.2 % (0.0-10.0); %Lymphocytes 12.4 % (21.0-51.0); %Monocytes 5.2 % (0.0-10.0); Mean Corpuscular HGB CONC 34.4 g/dL (32.0-36.0); Mean Corpuscular Hemoglobin 31.9 pg (27.0-31.0); Mean Corpuscular Volume 92.6 fL (78.0-98.0); Mean Platelet Volume 6.4 fL (7.4-10.4); Platelet Count 366 thou/uL (130-400); Red Blood Cell (RBC) Count 3.13 mill/uL (4.70-6.10); White Blood Cell (WBC) Count 17.6 thou/uL (4.8-10.8)
[2017-12-17 00:17] LABS: ALT (SGPT) 28 U/L (8-55); AST (SGOT) 20 U/L (5-34); Albumin 3.2 g/dL (3.5-5.0); Alkaline Phosphatase 270 U/L (40-150); Anion Gap 17 mmol/L (10-20); BUN (Urea Nitrogen) 51 mg/dL (8.4-25.7); Bilirubin, Total 0.4 mg/dL (0.2-1.2); Calc. Creatinine Clearance 0 mL/min (70-130); Calcium 8.4 mg/dL (7.8-10.44); Carbon Dioxide 23 mmol/L (22-29); Chloride 90 mmol/L (98-107); Estimated GFR-MDRD 8; Globulin 4.7 g/dL (2.4-3.5); Glucose 123 mg/dL (70-105); Potassium 3.7 mmol/L (3.5-5.1); Protein, Total 7.9 g/dL (6.0-8.3); Sodium 126 mmol/L (136-145)
[2017-12-17] MEDS ORDERED: Morphine 4 MG/ML VIAL ONE (00:22)
[2017-12-17] MEDS ORDERED: Cefepime 2 GM/10 ML 2 GM in Sodium Chloride 0.9% 100 ML IVPB SCH (01:15)
[2017-12-17] MEDS ORDERED: metroNIDAZOLE 500 MG/100 ML BAG ONE (02:52)
[2017-12-17 04:34] VITALS: BMI 39.4
[2017-12-17] MEDS ORDERED: Fentanyl 100 MCG/2 ML VIAL SLOW IVP PRN (04:44)
[2017-12-17] MEDS ORDERED: Ondansetron ODT 4 MG TAB PO PRN (06:41)
[2017-12-17] MEDS ORDERED: HYDROcodone/Acetaminophen 5/325 mg Tablet PO PRN (06:41)
[2017-12-17] MEDS ORDERED: Diabetic Tussin 200 MG/10 ML UDCUP PO PRN (06:41)
[2017-12-17] MEDS ORDERED: Acetaminophen 325 MG TAB PO PRN (06:41)
[2017-12-17] MEDS ORDERED: Dextrose 50% Abboject 50 ML SYRINGE SLOW IVP PRN (06:41)
[2017-12-17] MEDS ORDERED: Dextrose 5% in Water 1,000 ML IV PRN (06:41)
[2017-12-17] MEDS ORDERED: Milk Of Magnesia 30 ML UDCUP PO PRN (06:41)
[2017-12-17] MEDS ORDERED: Artificial Tears 18 DROP/0.9 ML EA EYE PRN (06:41)
[2017-12-17] MEDS ORDERED: Eucerin (Mineral Oil/Petrolatum,White) 30 gm Jar TOP PRN (06:41)
[2017-12-17] MEDS ORDERED: Zolpidem Tartrate 5 MG TAB PO PRN (06:41)
[2017-12-17] MEDS ORDERED: Ondansetron HCl/PF 4 MG/2 ML Vial IVP PRN (06:41)
[2017-12-17] MEDS ORDERED: Calcium Carbonate 500 MG ChewTAB PO PRN (06:41)
[2017-12-17] MEDS ORDERED: Senokot 8.6 MG TAB PO PRN (06:41)
[2017-12-17] MEDS ORDERED: hydrALAZINE 20 MG/ML VIAL SLOW IVP PRN (06:41)
[2017-12-17] MEDS ORDERED: Loperamide HCl 2 MG CAP PO PRN (06:41)
[2017-12-17 07:38] LABS: Hemoglobin 8.9 g/dL (14.0-18.0); Mean Corpuscular Volume 93.9 fL (78.0-98.0); Mean Platelet Volume 6.9 fL (7.4-10.4); Platelet Count 331 thou/uL (130-400); RBC Distribution Width 13.1 % (11.5-14.5); Red Blood Cell (RBC) Count 2.87 mill/uL (4.70-6.10); White Blood Cell (WBC) Count 16.2 thou/uL (4.8-10.8)
[2017-12-17 08:05] LABS: Vancomycin, Random 13.2 ug/mL (See Comment)
[2017-12-17] MEDS: Heparin 5,000 UNITS/ML VIAL SC SCH ×2 (08:10→20:15)
[2017-12-17] MEDS: Meropenem 500 MG in Sodium Chloride 0.9% 100 ML IVPB SCH (08:10)
[2017-12-17] MEDS: Saccharomyces boulardii 250 MG CAP PO SCH (08:10)
[2017-12-17 08:25] LABS: Band 2 % (5-11); Eosinophils 1 % (0-10); Lymphocytes 11 % (21-51); MDiff Complete? YES; Monocytes 8 % (0-10); Neutrophil 78 % (42-75); PLT Morphology Comment Appears Adequate; Polychromasia SLIGHT = 2-3 cells (100X) (0-2/hpf)
--- NOTE | 2017-12-17 08:53 | CT ---
PRELIMINARY REPORT/[facility]/EMERGENTY AFTER-HOURS PROCEDURE CT Right Lower Extremity With Intravenous Contrast EXAM DATE/TIME: Exam ordered 12/17/2017 1:10 AM CLINICAL HISTORY: 57 years old, male; Pain and signs and symptoms; Swelling, leg or foot; Ankle and foot; Right; Patien t HX: Patient presents for evaluation of pain, patient presents for evaluation of swelling, [facility] TECHNIQUE: Axial computed tomography images of the right lower extremity with intravenous contrast. All foot sca ns at this facility use at least one of these dose optimization techniques: automated exposure contro l; mA and/or kV adjustment per patient size (includes targeted exams where dose is matched to clinica l indication); or iterative reconstruction. COMPARISON: No relevant prior studies available. FINDINGS: Bones/joints: There are RIGHT foot degenerative changes with joint osteophytosis with sclerosis. No a cute RIGHT foot or leg fracture is demonstrated. No dislocation. Soft tissues: There is marked soft tissue thickening and inflammatory stranding underlying the RIGHT midfoot with trace fluid seen tracking through the area of inflammation compatible with infection. Co rrelate clinically for soft tissue ulceration. More posteriorly there is a medial RIGHT foot 1.9 x 0. 9 x 2.6 cm fluid density structure at the skin surface possibly representing a blister or abscess. IMPRESSION: 1. Marked RIGHT midfoot inferior soft tissue thickening with inflammatory stranding extending into the plantar foot musculature; cellulitis, plus/minus fasciitis is likely. 2. Medial RIGHT ankle blister versus abscess at the skin surface as above. Thank you for allowing us to participate in the care of your patient. Dictated and Authenticated by: Nathan Pablo MD 12/17/2017 2:28 AM Central Time ([place] & [place]) FINAL REPORT: CT RIGHT LOWER EXTREMITY WITH CONTRAST: FINDINGS: Soft tissue edema and inflammatory stranding seen plantar aspect of midfoot, as noted on preliminary report. Patient is post amputation of the great toe and there is soft tissue swelling at the amputation site at the proximal first metatarsal region. There is a fluid dense collection along the skin at the site of a possible ulceration measuring appro ximately 1.8 cm. This was described on the preliminary report. IMPRESSION: I am in agreement with the preliminary report. POS: [facility]
[2017-12-17] MEDS ORDERED: Epoetin (ESRD) 20,000 UNITS/ML SC SCH (09:00)
[2017-12-17] MEDS ORDERED: ISOVUE-370 76%-LOCM 1 ML ONE (10:02)
--- NOTE | 2017-12-17 10:27 | CON ---
DATE OF CONSULTATION: 12/17/2017 HISTORY OF PRESENT ILLNESS: Mr. Hernandez is a 57-year-old male with known history of ESRD an d admitted for right foot infection. He had a right foot abscess that was drained. He is currently on IV antibiotics. We are now being consulted for his maintenance hemodialysis. REVIEW OF SYSTEMS: Positive for right foot pain and swelling. Denies any fever or chills. No nause a, no vomiting, no diarrhea, no constipation, no syncopal episode, no productive cough, no abdominal pain, no gross hematuria, no dysuria, no urinary frequency. Appetite and energy level is fair. Occa sional joint pains. No new skin rash, no headache, no diplopia, no hematochezia, no melena, no hemat emesis. HOME MEDICATIONS: Clonidine 0.1 mg tab t.i.d., vitamin D3 1000 international units daily, lisinopril 10 mg once a day, atorvastatin 20 mg at bedtime, hydralazine 50 mg t.i.d., Humalog 10 units subcu 3 times a day, Renvela 800 mg 1 tab t.i.d., trazodone 50 mg at bedtime, tramadol 37.5/325 q.4h. as need ed. PAST MEDICAL HISTORY: 1. ESRD from diabetic nephropathy - on maintenance hemodialysis Sunday, Sunday, and Sunday. 2. Type 2 diabetes mellitus. 3. Peripheral vascular disease. 4. Status post seizure disorder. 5. Status post foot infection. 6. Status post cerebrovascular accident. 7. Status post congestive heart failure. PAST SURGICAL HISTORY: 1. Status post multiple toe amputations, right. 2. Status post AV fistula placement. 3. Status post left toe amputation. 4. Status post cuffed dialysis catheter placement. 5. Status post debridement right foot ulcer. 6. Status post laparoscopic cholecystectomy. 7. Status post I&D of diabetic right foot/plantar abscess with subsequent removal of foreign body. SOCIAL HISTORY: The patient is . He has several children. He lives in [place], medically disabled. Education: High school. No IV drug abuse. Status post multiple blood transfusions. 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 ALLERGIES: None. TRAUMA: None. IMMUNIZATIONS: Up to date. HOSPITALIZATIONS: Please see past medical history. FAMILY HISTORY: No family history of ESRD. PHYSICAL EXAMINATION: VITAL SIGNS: Blood pressure is noted at 181/84, heart rate 64, respiratory rate 18, temperature 98.6 , pulse ox 97% room air. GENERAL: Awake, alert, comfortable, not in distress. SKIN: Adequate turgor. HEENT: Slightly pale conjunctivae, anicteric sclerae. NECK: No neck mass, no carotid bruits, no JVD. CHEST: No deformities. LUNGS: Clear breath sounds, no wheezing, no crackles. HEART: Normal sinus rhythm. No murmur, no gallops or rubs. ABDOMEN: Globular, soft, nontender, no masses. Positive for bowel sounds. EXTREMITIES: No edema, positive for right foot dressing. NEUROLOGIC: Awake, oriented to 3 spheres. Moving all extremities. No tremors, no asterixis, no alvino itz. LABORATORY: 12/17/2017 - White count 16.2, hemoglobin 8.9. Sodium 126, potassium 3.7, chloride 90, carbon dioxide 23, BUN 51, creatinine 7.07, glucose 123, calcium 8.4, AST 20, ALT 28. X-ray of the right foot ulcer, plantar surface of the foot shows no obvious osteomyelitis. CT scan of the lower extremity shows soft tissue edema, inflammatory stranding seen the plantar aspec t of the mid foot. There is also a soft tissue swelling at the amputation site of the proximal first metatarsal region. There is a dense fluid collection along the skin, the site of the possible ulcer ation. ASSESSMENT AND PLAN: 1. Right foot infection/ulceration - status post I&D, continuing IV antibiotics. Please note the randell kingsley has been started on IV meropenem at 500 mg IV daily. 2. End-stage renal disease, stable. We will continue current Sunday, Sunday, Sunday hemodialysis . I have scheduled him this afternoon for his regular dialysis regimen. 3. Anemia - I will resume Epogen 7500 units subcutaneously every week. Review of the last Kt/V of his dialysis regimen suggests he is adequately dialyzed with the current d ialysis regimen.
--- NOTE | 2017-12-17 11:32 | HP ---
DATE OF ADMISSION: 12/17/2017 PRIMARY CARE PHYSICIAN: Mariah Alston M.D. at [facility]. PRIMARY PLASTIC JIG AND FIXTURE BUILDER: Umang Dalal M.D. REASON FOR ADMISSION: Right diabetic foot infection, sepsis. HISTORY OF PRESENT ILLNESS: A 57-year-old male who has underlying history of hypertension, diabetes type 2, ESRD on hemodialysis as well as multiple cerebrovascular accidents with chronic left-sided weakness who presented to emergency room with a complaint of pain to the right heel for the last 3 days. The patient reports that he has a diabetic ulcer on the plantar aspect of right foot for a long time and for that reason, the patient is getting wound care. He has home health nurse coming to his home for wound care. The patient noticed blister and erythema surrounding on the medial aspect of right foot, which was giving him a lot of trouble to walk. The patient is using foot supporter on the left foot. He was also having fever and he was feeling weak and that is why he decided to come to the emergency room for evaluation. His symptoms are gradually getting worse and he was having fever and that is why he was worried about his foot loss and that is why he came to ER for evaluation. In the emergency room, this patient was found with a diabetic plantar aspect ulcer as well as medial aspect ankle ulcer. The patient had lower extremity CT scan in the emergency room, which showed marked right midfoot inferior soft tissue thickening and inflammatory stranding. Medial right ankle blister versus abscess was also noted. The patient had leukocytosis with left shift. He was febrile in the emergency room, he was given broad spectrum antibiotic therapy with cefepime, vancomycin and Flagyl as well as morphine and subsequently he was admitted to telemetry floor. REVIEW OF SYSTEMS: The following complete review of systems was negative, unless otherwise mentioned in the HPI or below: Constitutional: Weight loss or gain, ability to conduct usual activities. Skin: Rash, itching. Eyes: Double vision, pain. ENT/Mouth: Nose bleeding, neck stiffness, pain, tenderness. Cardiovascular: Palpitations, dyspnea on exertion, orthopnea. Respiratory: Shortness of breath, wheezing, cough, hemoptysis, fever or night sweats. Gastrointestinal: Poor appetite, abdominal pain, heartburn, nausea, vomiting, constipation, or diarrhea. Genitourinary: Urgency, frequency, dysuria, nocturia. Musculoskeletal: Pain, swelling. Neurologic/Psychiatric: Anxiety, depression. Allergy/Immunologic: Skin rash, bleeding tendency. Please see my HPI for pertinent positive and negative. All other review of system reviewed and negative except as mentioned in the HPI. PAST MEDICAL HISTORY: ESRD on hemodialysis Sunday, Sunday, Sunday; diabetes type 2; diabetic retinopathy; diabetic neuropathy; diabetic nephropathy; history of CVA and TIA with residual left-sided weakness; hypertension; history of diabetic foot infection; dyslipidemia; history of hemorrhagic CVA in 2005. PAST SURGICAL HISTORY: Multiple dialysis access, tonsillectomy, cholecystectomy , partial toe amputation on the right side as well as metatarsal amputation on the right side, third left toe partial digit amputation. PAST PSYCHIATRIC HISTORY: Reviewed and negative. SOCIAL HISTORY: The patient is . He lives at home with his . He is a former smoker. He ambulates with a walker and cane. No history of alcohol or other illicit drug abuse. FAMILY HISTORY: Father by age of 76 from colon cancer. EMERGENCY ROOM COURSE: The patient has received vancomycin, cefepime, Flagyl, morphine 4 mg, lidocaine and epinephrine subcu. ALLERGIES: No known drug allergy. CURRENT HOME MEDICATIONS: Norvasc 10 mg p.o. daily, aspirin 325 mg p.o. daily, vitamin D3 1000 unit p.o. daily, Humalog insulin as per sliding scale, hydralazine 100 mg t.i.d., Renvela 800 mg p.o. t.i.d., Lipitor 10 mg p.o. at bedtime, clonidine 0.1 mg p.o. b.i.d., Imdur 60 mg p.o. daily. PHYSICAL EXAMINATION: VITAL SIGNS: On arrival, blood pressure 169/74, pulse 78, respiratory rate 18, temperature 100.1, saturation 98% on room air. Weight 117.9 kg. GENERAL: The patient currently appears chronically ill, no obvious acute distress, hypertensive. HEAD: Normocephalic, atraumatic. EYES: Pupils round and reactive to light. Extraocular muscles intact. ENT: Oropharynx within normal limits. Moist mucous membranes. No oral lesion , no pharyngeal erythema, no exudate. NECK: Supple, no JVD, no thyromegaly, no carotid bruit, no jugular venous distention. LUNGS: Clear to auscultation without any rhonchi or rales. CARDIAC: S1, S2 appears regular. No murmur elicited. No gallop, no rub. ABDOMEN: Obesity present. Bowel sounds present. No organomegaly, no mass, no suprapubic tenderness, no peritoneal sign. BACK: Unremarkable. No CVA tenderness. EXTREMITIES: Upper extremities, passive movement of all joints are normal. Dialysis access in place. Lower extremities, the patient's right foot is swollen as well as edema up to lower extremity above the ankle level. The patient has medial aspect of right ankle purulent drainage with abscess looking and surrounding cellulitis. The patient also has plantar aspect ulcer, which is chronic and nonhealing. NEUROLOGIC: The patient does have residual left upper and lower extremity weakness. SKIN: No skin rash other than the diabetic foot infection ulcer. HEMATOLOGICAL: No lymphadenopathy. PSYCHIATRIC: Normal affect. SIGNIFICANT LABORATORY DATA: CBC, WBC 17.6, hemoglobin 10.0, platelets 366,000 with a left shift. BMP, sodium 126, potassium 3.7, chloride 90, carbon dioxide 23, anion gap 17, BUN 51, creatinine 7.07, glucose 123, calcium 8.4. Lactic acid 1.0. LFT, AST 20, ALT 28, alkaline phosphatase 270, albumin 3.2. CRP 17.7. IMAGING: Lower extremity CT scan showing mid foot inferior soft tissue thickening, medial right ankle blister versus abscess. ASSESSMENT AND PLAN: 1. Diabetic foot infection on the right. The patient will need wound care. Dr. Stearns will be consulted. We will defer further investigation to Dr. Stearns. We will consult General Surgery for possible need of debridement. Meanwhile, we will continue with meropenem 500 mg IV daily, vancomycin with dialysis and Flagyl to cover anaerobes. On discharge, antibiotics, we will defer to Dr. Stearns. Pain will be controlled with pain medication. We will follow up on culture result. 2. Sepsis secondary to diabetic foot infection on the right. The patient has leukocytosis, fever. He meets sepsis criteria and sepsis source is diabetic foot infection. He is on broad spectrum antibiotic therapy. 3. Diabetes type 2. We will continue the insulin as per sliding scale per protocol. Diabetic diet will be given. 4. Anemia of renal disease. We will continue with Nephro-Abbey one tablet p.o. daily, ferrous sulfate 325 mg p.o. daily and Procrit with the dialysis. 5. End-stage renal disease on hemodialysis Sunday, Sunday, Sunday. Dr. Dalal is consulted. The patient will need dialysis today and he will continue with maintenance hemodialysis while in hospital. 6. Secondary hyperparathyroidism of renal origin. We will continue Renvela 800 mg p.o. t.i.d. 7. Hypertension, not well controlled. We will resume his home medication, Norvasc 10 mg daily, hydralazine 100 mg p.o. t.i.d., clonidine 0.1 mg b.i.d. and isosorbide mononitrate 60 mg p.o. daily and use p.r.n. basis blood pressure medication. 8. History of cerebrovascular accident. The patient does have chronic left- sided weakness. 9. Morbid obesity with BMI 39. Dietary education given. Weight loss education given. 10. Dyslipidemia. Continue Lipitor 10 mg p.o. at bedtime. 11. Deep venous thrombosis prophylaxis, heparin 5000 units subcu twice daily. 12. Gastrointestinal prophylaxis. Pepcid 20 mg p.o. daily. CODE STATUS: The patient is full code. The patient's is surrogate decision maker. Disposition plan based on clinical course. We are expecting the patient's stay in hospital more than 2 midnights. Plan of care discussed with the patient. This patient does not need any monitor and storage bin tender and that is why we will transfer him to medical floor. FRANCISCO
[2017-12-17] MEDS: Sevelamer Carbonate 800 MG TAB PO SCH ×2 (11:57→16:43)
[2017-12-17] MEDS ORDERED: Vancomycin HCl 1.5 GM in Sodium Chloride 0.9% 250 ML 300 ML IVPB SCH (12:15)
[2017-12-17] MEDS ORDERED: Vancomycin Sliding Scale 1 EACH FS ONE (12:15)
[2017-12-17] MEDS ORDERED: Vancomycin HCl 750 MG in Sodium Chloride 0.9% 250 ML 250 ML IVPB SCH (12:15)
[2017-12-17] MEDS ORDERED: Vancomycin HCl 1.25 GM in Sodium Chloride 0.9% 250 ML 250 ML IVPB SCH (12:15)
[2017-12-17] MEDS ORDERED: HOLD VANCOMYCIN FOR LEVEL >20 FS SCH (12:15)
--- NOTE | 2017-12-17 13:12 | CON ---
DATE OF CONSULTATION: 12/17/2017 REASON FOR CONSULTATION: Right diabetic foot infection. HISTORY: Mr. Hernandez is a 57-year-old patient of Dr. Wood with multiple medical problems. He has had multiple interventions on his right foot for repeated diabetic foot infections and has a chronic plantar ulcer, which has not healed despite ongoing wound care. He has declined amputation of this f oot and is still ambulatory. He states that about 3 or 4 days before he came into the emergency room , he noticed redness and swelling near his right heel and that this became worse and started making i t difficult for him to walk. He also had some fevers and was feeling weak, so he came into the emerg ency room. He was found to have erythema and a necrotic looking portion of the skin on the right med ial heel area and underwent a CT scan, which showed evidence of inflammation near the deep structures of the foot as well as an apparent blister at the site of his external wound. Since that time, the blister has drained. He was admitted for IV antibiotics and a Surgery consult was requested. PAST MEDICAL HISTORY: End-stage renal failure on dialysis Sunday, Sunday and Sunday; diabetes wit h retinopathy, neuropathy and nephropathy; history of cerebrovascular accident with residual left-arielle ed weakness; multiple diabetic foot infections on the right, status post amputation of all 5 toes on that side; hyperlipidemia and hypertension. PAST SURGICAL HISTORY: Multiple procedures for dialysis access, currently with a functional left AV fistula, tonsillectomy, cholecystectomy, amputation of all the toes on the right side and partial amp utation of the left third toe. SOCIAL HISTORY: The patient still lives independently at home with his . He ambulates with a wa lker, cane and a splint for his left foot. He does not drink, smoke or use illicit drugs, although qian singleton did smoke in the past. FAMILY HISTORY: Colon cancer. ALLERGIES: No known drug allergies. OUTPATIENT MEDICATIONS: Include Norvasc, aspirin, vitamin D, insulin, hydralazine, Renvela, Lipitor, clonidine and Imdur. INPATIENT MEDICATIONS: Include amlodipine, aspirin, atorvastatin, calcium carbonate, vitamin D3, romie nidine, Epogen, Pepcid, iron, sliding scale insulin, subcu heparin, isosorbide mononitrate, meropenem , Flagyl, vancomycin on a sliding scale, Florastor, Renvela, Nephro-Abbey and multiple p.r.n. IMAGING: CT images are reviewed and I agree with the written report. LABORATORY DATA: White count is elevated at 16.2, hematocrit chronically low at 27 and platelets 331 ,000. Electrolytes are unremarkable except for mild hyponatremia at 126 and low chloride at 90. BUN and creatinine are 51 and 7.07 and blood sugars have ranged from 96-151. LFTs are normal, although his alkaline phosphatase is elevated at 270 and albumin is slightly low at 3.2. PHYSICAL EXAMINATION: VITAL SIGNS: The patient is afebrile, heart rate 65, respirations 16, 94% saturated on room air, blo od pressure 127/61. GENERAL: Reveals a pleasant man, in no acute distress. He is not flushed or toxic, jaundiced or ict macey in appearance. HEENT: Unremarkable. NECK: Supple without lymphadenopathy or thyroid nodules. HEART: Regular in its rate and rhythm without murmurs, rubs or gallops. LUNGS: Clear to auscultation bilaterally. ABDOMEN: Soft and nondistended. He has some mild tenderness to palpation with no rigidity, rebound or guarding. He has no palpable masses or hernias. He states that he has been a little sore in his abdomen since he fell onto it the other day. He was trying to get up from the toilet at his home and slipped on the floor, falling forward onto his stomach. EXTREMITIES: Warm with normal capillary refill. The left foot has several superficial abrasions on the toes. I do not feel any pedal pulses, but he has a good popliteal pulse on the left. On the rig ht, he has good popliteal and a palpable pedal pulse. He has a chronic plantar ulcer, which does not probe deep into the tissues. He has an area of necrotic skin on his medial heel area, which was myles rided and some necrotic tissue encountered beneath. There was full-thickness skin loss in this area and once the necrotic subcutaneous tissue was debrided, an abscess pocket was encountered. Pus was s ent for Gram stain and culture and the abscess was irrigated and packed. ASSESSMENT AND PLAN: Right foot abscess. The patient likely has chronic osteomyelitis given his fiordaliza vated alkaline phosphatase and failure of his plantar ulcer to heal, but he has repeatedly refused am putation of the foot. He ate a full breakfast and the abscess has been drained at the bedside, so I have opted to make him n.p.o. after midnight and place him on the OR schedule for tomorrow for a surg ical debridement of the left foot. The abscess will need to be opened up more widely. It may end up connecting to the chronic ulcer on the plantar surface. He will likely require long-term wound care for this as well as antibiotics. He is not interested in amputation of the foot, although it seems that this is likely to become inevitable at some point.
[2017-12-17] MEDS: metroNIDAZOLE 500 MG in Premix Bag 1 BAG IVPB SCH ×2 (14:12→21:45)
[2017-12-17] MEDS: hydrALAZINE 25 MG TAB PO SCH ×2 (14:31→20:13)
[2017-12-17] MEDS: Vancomycin HCl 1 GM in Premix Bag 1 BAG IVPB SCH (17:05)
--- NOTE | 2017-12-17 19:02 | CON ---
DATE OF CONSULTATION: 12/17/2017 REASON FOR CONSULTATION: Right foot infection. HISTORY OF PRESENT ILLNESS: This is a 57-year-old known to us from recent admission who has a histor y of type 2 diabetes mellitus, end-stage renal disease on hemodialysis through an AV fistula and comp lications in the right foot treated in the past. In September this year, he presented with an infection w hich was limited to the soft tissues with no bone involvement. He was treated conservatively. This time, he presents with recrudescence of pain and swelling right foot. This time, more in the hand, f oot region plantar aspect associated with chronic ulcer. The patient had a lower extremity CT which demonstrated soft tissue edema and inflammatory stranding, fluid density collection along the skin in the site possible ulceration measuring 1.8 cm. The patient has been started on broad spectrum antim icrobial coverage with meropenem, Flagyl, and vancomycin. Currently, denies any headaches, no change in visual symptoms. He has significant visual impairment, no sore throat, odynophagia, dysphagia. No neck pain, dyspnea or chest pain, no abdominal pain or diarrhea. He does not have much in terms o f urinary output. PAST MEDICAL HISTORY: Type 2 diabetes as well as neuropathy, lower extremities, end-stage renal dise ase on hemodialysis through AV fistula, retinopathy, hypertension, prior CVA, residual left-sided wea kness, hemorrhagic CVA in and complications and lower extremities related to diabetic neuropath y. PAST SURGICAL HISTORY: As above plus cholecystectomy, tonsillectomy, toe amputations, right side wit h transmetatarsal amputation. ALLERGIES: None. SOCIAL HISTORY: Lives with . Former smoker. FAMILY HISTORY: Noncontributory. CURRENT MEDICATIONS: Senokot, Tylenol, Norvasc, aspirin, Lipitor, Tums, Catapres, Pepcid, Feosol, Ap resoline, insulin, meropenem, Flagyl, vancomycin. PHYSICAL EXAMINATION: VITAL SIGNS: T-max 98.9, blood pressure 120/60, pulse 65, respirations 16, O2 sat 94% to 97%. SKIN: Remarkable for area of inflammatory change, right medial heel area with erythema surrounding t his area. Central area of necrosis of the skin surrounding yellow tissue. The bottom aspect of the plantar hand, foot, there is a round oval shaped 2.5 cm ulceration with red tissue at the base. HEENT: Ocular movements are somewhat disconjugate. He has significant impairment and visual input. His oral cavity is unremarkable. LUNGS: Symmetric air entry. HEART: S1, S2, regular rate. ABDOMEN: Soft, without tenderness or distention. EXTREMITIES: No joint inflammatory activity. Pulses are 1+ in dorsalis pedis. Slight left hemipare sis. NEUROLOGIC: Cognitive function appears to be intact. Dr. Snow has evaluated the patient and diagnosed with right foot abscess and he will have the I&D procedure carried out. After the procedure depending on findings, may consider MRI to see if there i s bone marrow changes at the heel region. This is a new area of ulceration different than the previo us one that he had in the forefoot region. The Gram stain from the culture shows gram positive cocci in pairs and clusters, likely Staphylococcus aureus. Continue current regimen for the time being. Await on the results of the surgical debridements and consider MRI to see if there are bone marrow ch anges if the bone that does not appear directly involved after the surgical inspection.
[2017-12-17] MEDS: Atorvastatin Calcium 10 MG TAB PO SCH (20:14)
[2017-12-17] MEDS: cloNIDine 0.1 MG TAB PO SCH (20:14)
[2017-12-17] MEDS: HumaLOG 300 UNITS/3 ML VIAL SC PRN (21:45)
[2017-12-18] MEDS: metroNIDAZOLE 500 MG in Premix Bag 1 BAG IVPB SCH ×3 (05:17→22:19)
[2017-12-18 05:50] LABS: #Eosinphils 0.1 thou/uL (0.0-0.7); #Lymphocytes 1.4 thou/uL (1.20-3.40); #Monocytes 0.8 thou/uL (0.11-0.59); #Neutrophils 9.9 thou/uL (1.40-6.50); %Basophils 0.1 % (0.0-1.0); %Lymphocytes 11.1 % (21.0-51.0); %Monocytes 6.7 % (0.0-10.0); %Neutrophils 81.1 % (42.0-75.0); Hemoglobin 9.8 g/dL (14.0-18.0); Mean Corpuscular HGB CONC 33.1 g/dL (32.0-36.0); Mean Corpuscular Hemoglobin 30.8 pg (27.0-31.0); Mean Corpuscular Volume 93.1 fL (78.0-98.0); Mean Platelet Volume 6.2 fL (7.4-10.4); Platelet Count 385 thou/uL (130-400); RBC Distribution Width 13.2 % (11.5-14.5); Red Blood Cell (RBC) Count 3.18 mill/uL (4.70-6.10); White Blood Cell (WBC) Count 12.3 thou/uL (4.8-10.8)
[2017-12-18 06:11] LABS: ALT (SGPT) 54 U/L (8-55); AST (SGOT) 41 U/L (5-34); Albumin 2.9 g/dL (3.5-5.0); Alkaline Phosphatase 424 U/L (40-150); Anion Gap 14 mmol/L (10-20); BUN (Urea Nitrogen) 32 mg/dL (8.4-25.7); Bilirubin, Total 0.4 mg/dL (0.2-1.2); Calc. Creatinine Clearance 25 mL/min (70-130); Calcium 8.6 mg/dL (7.8-10.44); Carbon Dioxide 26 mmol/L (22-29); Chloride 98 mmol/L (98-107); Estimated GFR-MDRD 11; Globulin 4.7 g/dL (2.4-3.5); Glucose 195 mg/dL (70-105); Potassium 4.6 mmol/L (3.5-5.1); Protein, Total 7.6 g/dL (6.0-8.3); Sodium 133 mmol/L (136-145)
[2017-12-18] MEDS: cloNIDine 0.1 MG TAB PO SCH ×2 (08:49→20:49)
[2017-12-18] MEDS: Meropenem 500 MG in Sodium Chloride 0.9% 100 ML IVPB SCH (08:49)
[2017-12-18] MEDS: Amlodipine 10 MG TAB PO SCH (08:50)
[2017-12-18] MEDS: hydrALAZINE 25 MG TAB PO SCH ×3 (08:50→22:29)
--- NOTE | 2017-12-18 09:42 | PRG ---
DATE OF SERVICE: 12/18/2017 SERVICE: Renal Medicine. SUBJECTIVE: Mr. Hernandez is a 57-year-old male followed up by the Renal Service for his main tenance hemodialysis. He underwent dialysis yesterday without any difficulty. He was initially admi tted for left foot infection. Surgery and ID has evaluated this patient. Recommendation for foot am putation is being made, but the patient is declining. He will be undergoing a surgical debridement o f his infected foot. No complaints of chest pain or shortness of breath. PHYSICAL EXAMINATION: VITAL SIGNS: Blood pressure is 133/66, heart rate 69, respiratory rate 16, temperature 99.8, pulse o x 94%. GENERAL: Noted to be awake, alert, comfortable, not in overt distress SKIN: Adequate turgor. HEENT: Pinkish conjunctivae, anicteric sclerae. NECK: No neck mass, no carotid bruits, no JVD. CHEST: No deformities. LUNGS: Clear breath sounds. HEART: Normal sinus rhythm. No murmur, no gallops, no rubs. ABDOMEN: Globular, soft, nontender, no masses. EXTREMITIES: No edema, no deformities. He has a dressing noted on his right foot. MEDICATIONS: Of 12/18/2017 was reviewed. LABORATORY DATA: Of 12/18/2017, white count 12.3, hemoglobin 9.8. Sodium 133, potassium 4.6, chlori de 98, carbon dioxide 26, BUN 32, creatinine 5.23, glucose 195, calcium 8.6, AST 41, ALT 54, albumin 2.9. ASSESSMENT AND PLAN: 1. Right foot infection - for surgical debridement. On IV antibiotics. ID service following. 2. End-stage renal disease, stable. We will continue current Sunday, Sunday, Sunday dialysis. F luid removal as tolerated. 3. Anemia. The patient has been started on his weekly Epogen. Continue management. We will be rec hecking a base met and CBC. ADDENDUM: Hypoalbuminemia. Nepro 1 can b.i.d.
--- NOTE | 2017-12-18 12:16 | PDOC.PN ---
- Subjective Encounter Start Date: 12/18/17 Encounter Start Time: 07:15 -: old records requested/rev pt has less pain, no fever, today he is npo for surgical I & D - Objective Resuscitation Status: Resuscitation Status FULL:Full Resuscitation MAR Reviewed: Yes Vital Signs & Weight: Vital Signs (12 hours) Temp Pulse Resp BP BP Pulse Ox 12/18/17 11:55 99.2 F 66 16 125/57 L 92 L 12/18/17 08:50 69 133/66 12/18/17 08:49 133/66 12/18/17 08:00 99.8 F H 69 16 94 L 12/18/17 07:35 99.8 F H 69 16 133/66 94 L 12/18/17 04:00 99.3 F 92 18 170/74 H 92 L Weight Admit Weight 252 lb 3.2 oz Weight 252 lb 3.2 oz I&O: 12/17/17 12/18/17 12/19/17 06:59 06:59 06:59 Intake Total 245 200 Output Total 0 125 Balance 245 200 -125 Result Diagrams: 12/18/17 05:40 12/18/17 05:40 Additional Labs: Accuchecks 12/18/17 12/18/17 12/17/17 11:10 06:18 21:17 POC Glucose 168 H 180 H 210 H Phys Exam - Physical Examination Constitutional: NAD HEENT: PERRLA, moist MMs, sclera anicteric Neck: no JVD, supple Respiratory: no wheezing, no rales, no rhonchi Cardiovascular: RRR, no significant murmur, no rub Gastrointestinal: soft, non-tender, no distention, positive bowel sounds obesity+ Musculoskeletal: no edema, pulses present right foot with dressing Neurological: non-focal, normal sensation, moves all 4 limbs Psychiatric: normal affect, A&O x 3 Skin: no rash, normal turgor Dx/Plan (1) Cellulitis and abscess of foot Code(s): L03.119 - CELLULITIS OF UNSPECIFIED PART OF LIMB; L02.619 - CUTANEOUS ABSCESS OF UNSPECIFIED FOOT Status: Acute Comment: right foot (2) Sepsis Code(s): A41.9 - SEPSIS, UNSPECIFIED ORGANISM Status: Acute (3) Anemia of renal disease Code(s): D63.1 - ANEMIA IN CHRONIC KIDNEY DISEASE Status: Chronic (4) DM2 (diabetes mellitus, type 2) Status: Chronic Qualifiers: Diabetes mellitus half-way insulin use: with half-way use Diabetes mellitus complication status: with diabetic arthropathy Diabetes mellitus complication detail: with neuropathic arthropathy Qualified Code(s): E11.610 - Type 2 diabetes mellitus with diabetic neuropathic arthropathy; Z79.4 - skilled nursing (current) use of insulin; Z79.4 - ferry terminal agent (current) use of insulin; Z79.4 - ferry terminal agent (current) use of insulin; Z79.4 - skilled nursing (current) use of insulin (5) Diabetic neuropathic arthropathy Code(s): E11.610 - TYPE 2 DIABETES MELLITUS W DIABETIC NEUROPATHIC ARTHROPATHY Status: Chronic (6) Dyslipidemia Code(s): E78.5 - HYPERLIPIDEMIA, UNSPECIFIED Status: Chronic (7) ESRD (end stage renal disease) on dialysis Code(s): N18.6 - END STAGE RENAL DISEASE; Z99.2 - DEPENDENCE ON RENAL DIALYSIS Status: Chronic (8) HTN (hypertension) Code(s): I10 - ESSENTIAL (PRIMARY) HYPERTENSION Status: Chronic Qualifiers: Hypertension type: essential hypertension Qualified Code(s): I10 - Essential (primary) hypertension (9) Obesity (BMI 30-39.9) Code(s): E66.9 - OBESITY, UNSPECIFIED Status: Chronic (10) Secondary hyperparathyroidism of renal origin Code(s): N25.81 - SECONDARY HYPERPARATHYROIDISM OF RENAL ORIGIN Status: Chronic - Plan cont current plan of care, continue antibiotics * today I & D * after that if surgeon thinks MRI necessary to rule out bone involvement, will obtain * continue meropenam, vancomycin and flagyl for now * pain controlled * HD as per nephrology * medication reviewed as below * symptomatic treatment * wound care * follow on culture result. Review of Systems - Review of Systems Eyes: negative: Pain, Vision Change, Conjunctivae Inflammation, Eyelid Inflammation, Redness, Other ENT: negative: Ear Pain, Ear Discharge, Nose Pain, Nose Discharge, Nose Congestion, Mouth Pain, Mouth Swelling, Throat Pain, Throat Swelling, Other Respiratory: negative: Cough, Dry, Shortness of Breath, Hemoptysis, SOB with Excertion, Pleuritic Pain, Sputum, Wheezing Cardiovascular: negative: chest pain, palpitations, orthopnea, paroxysmal nocturnal dyspnea, edema, light headedness, other Gastrointestinal: negative: Nausea, Vomiting, Abdominal Pain, Diarrhea, Constipation, Melena, Hematochezia, Other Genitourinary: negative: Dysuria, Frequency, Incontinence, Hematuria, Retention , Other Musculoskeletal: Foot Pain. negative: Neck Pain, Shoulder Pain, Arm Pain, Back Pain, Hand Pain, Leg Pain, Other - Medications/Allergies Allergies/Adverse Reactions: Allergies Allergy/AdvReac Type Severity Reaction Status Date / Time No Known Allergies Allergy Verified 12/17/17 04:25 Medications: Current Medications Acetaminophen (Tylenol) 650 mg PO Q4H PRN PRN Reason: Headache/Fever or Pain Hydrocodone Bitart/Acetaminophen ([place] 5/325) 1 tab PO Q4H PRN PRN Reason: Moderate Pain (4-6) Last Admin: 12/17/17 09:12 Dose: 1 tab Amlodipine Besylate (Norvasc) 10 mg PO DAILY [facility] Last Admin: 12/18/17 08:50 Dose: 10 mg Artificial Tears (Tears Naturale) 0 drop EA EYE PRN PRN PRN Reason: Dry Eyes Aspirin (Aspirin) 325 mg PO DAILY [facility] Atorvastatin Calcium (Lipitor) 10 mg PO HS [facility] Last Admin: 12/17/17 20:14 Dose: 10 mg Calcium Carbonate (Tums) 1,000 mg PO Q4H PRN PRN Reason: Heartburn or Indigestion Cholecalciferol (Vitamin D3) 1,000 units PO DAILY [facility] Clonidine (Catapres) 0.1 mg PO BID [facility] Last Admin: 12/18/17 08:49 Dose: 0.1 mg Dextrose/Water (Dextrose 50%) 25 gm SLOW IVP PRN PRN PRN Reason: Hypoglycemia Epoetin Luciano (Procrit) 7,500 units SC Q7D [facility] Last Admin: 12/17/17 10:38 Dose: 7,500 units Famotidine (Pepcid) 20 mg PO DAILY [facility] Ferrous Sulfate (Feosol) 325 mg PO QAM-[facility] Glucagon (Glucagon) 1 mg IM PRN PRN PRN Reason: Hypoglycemia Guaifenesin (Robitussin Sf) 200 mg PO Q4H PRN PRN Reason: Cough Heparin Sodium (Porcine) (Heparin) 5,000 units SC BID [facility] Last Admin: 12/17/17 20:15 Dose: 5,000 units Hydralazine HCl (Apresoline) 10 mg SLOW IVP Q4H PRN PRN Reason: Systolic BP > 180 Last Admin: 12/17/17 09:13 Dose: 10 mg Hydralazine HCl (Apresoline) 100 mg PO TID [facility] Last Admin: 12/18/17 08:50 Dose: 100 mg Dextrose/Water (D5w) 1,000 mls @ 0 mls/hr IV .Q0M PRN PRN Reason: Hypoglycemia Meropenem 500 mg/ Sodium (Chloride) 100 mls @ 200 mls/hr IVPB DAILY [facility] Last Admin: 12/18/17 08:49 Dose: 100 mls Metronidazole 500 mg/ Device 100 mls @ 100 mls/hr IVPB Q8HR [facility] Last Admin: 12/18/17 05:17 Dose: 100 mls Vancomycin HCl 1.5 gm/ Sodium (Chloride) 300 mls @ 200 mls/hr IVPB WILLCALL [facility] Vancomycin HCl 1.25 gm/ Sodium (Chloride) 250 mls @ 166.667 mls/hr [facility] Vancomycin HCl 1 gm/ Device 200 mls @ 200 mls/hr IVPB WILLCALL [facility] Last Admin: 12/17/17 17:05 Dose: 200 mls Vancomycin HCl 750 mg/ Sodium (Chloride) 250 mls @ 250 mls/hr IVPB WILLCALL [facility] Insulin Human Lispro (Humalog) 0 units SC .MODERATE SLIDING SC PRN PRN Reason: Moderate Correctional Scale Insulin Human Lispro (Humalog) 0 units SC .BEDTIME SLIDING SC PRN PRN Reason: Bedtime Correctional Scale Last Admin: 12/17/17 21:45 Dose: 2 unit Isosorbide Mononitrate (Imdur) 60 mg PO DAILY [facility] Last Admin: 12/18/17 08:50 Dose: 60 mg Loperamide HCl (Imodium) 2 mg PO PRN PRN PRN Reason: Diarrhea/Loose Stools Magnesium Hydroxide (Milk Of Magnesium) 30 ml PO DAILYPRN PRN PRN Reason: Constipation Mineral Oil/White Petrolatum (Eucerin Cream) 0 gm TOP BIDPRN PRN PRN Reason: Dry Skin Miscellaneous Medication (Pharmacy To Dose) 1 each IVPB ONE PRN PRN Reason: Pharmacy to dose Stop: 12/27/17 06:54 Morphine Sulfate (Morphine) 2 mg SLOW IVP Q2H PRN PRN Reason: Pain Last Admin: 12/17/17 12:02 Dose: 2 mg Hold Vancomycin For (Level >20) 0 each FS .AT DIALYSIS [facility] Ondansetron HCl (Zofran Odt) 4 mg PO Q6H PRN PRN Reason: Nausea/Vomiting Last Admin: 12/17/17 09:13 Dose: 4 mg Ondansetron HCl (Zofran) 4 mg IVP Q6H PRN PRN Reason: Nausea/Vomiting Saccharomyces Boulardii (Florastor) 250 mg PO DAILY [facility] Last Admin: 12/17/17 08:10 Dose: 250 mg Senna (Senokot) 2 tab PO HSPRN PRN PRN Reason: Constipation Sevelamer Carbonate (Renvela) 800 mg PO TID-[facility] Last Admin: 12/17/17 16:43 Dose: Not Given Sodium Chloride (Flush - Normal Saline) 10 ml IVF PRN PRN PRN Reason: Saline Flush Last Admin: 12/18/17 08:54 Dose: 10 ml Sodium Chloride (Flush - Normal Saline) 10 ml IVF PRN PRN PRN Reason: Saline Flush Vitamin B Complex/Vit C/Folic Acid (Nephro-Abbey Tablet) 1 tab PO DAILY [facility] Zolpidem Tartrate (Ambien) 5 mg PO HSPRN PRN PRN Reason: Insomnia
[2017-12-18] MEDS ORDERED: PHENYLEPHRINE-NS 100 MCG/ML 10 ML SYRINGE ONE (13:54)
[2017-12-18] MEDS ORDERED: PROPOFOL 200 MG/20 ML VIAL ONE (13:54)
[2017-12-18] MEDS ORDERED: Lidocaine 1% PF 5 ML VIAL ONE (13:54)
[2017-12-18] MEDS ORDERED: Fentanyl 100 MCG/2 ML VIAL ONE ×3 (15:53→17:35)
[2017-12-18] MEDS: Sevelamer Carbonate 800 MG TAB PO SCH ×3 (16:44→19:38)
[2017-12-18] MEDS: Heparin 5,000 UNITS/ML VIAL SC SCH ×2 (16:45→20:50)
[2017-12-18] MEDS ORDERED: traMADol HCl 50 MG TAB PO PRN ×2 (17:05)
[2017-12-18] MEDS ORDERED: Acetaminophen 500 MG TAB PO PRN (17:05)
[2017-12-18] MEDS ORDERED: Ondansetron HCl/PF 4 MG/2 ML Vial IVP PRN (17:23)
[2017-12-18] MEDS ORDERED: Promethazine HCl 25 MG/ML VIAL SLOW IVP PRN (17:23)
[2017-12-18] MEDS ORDERED: Promethazine HCl 25 MG/ML VIAL IM PRN (17:23)
[2017-12-18] MEDS: Aspirin 325 MG TAB PO SCH (19:37)
[2017-12-18] MEDS: Famotidine 20 MG TAB PO SCH (19:37)
[2017-12-18] MEDS: Ferrous Sulfate 325 MG TAB PO SCH (19:37)
[2017-12-18] MEDS: Folic Acid/Vit B Comp W-C PO SCH (19:37)
[2017-12-18] MEDS: Saccharomyces boulardii 250 MG CAP PO SCH (19:38)
[2017-12-18] MEDS: Atorvastatin Calcium 10 MG TAB PO SCH (20:49)
[2017-12-18] MEDS: HumaLOG 300 UNITS/3 ML VIAL SC PRN (20:51)
--- NOTE | 2017-12-18 23:28 | OP ---
DATE OF PROCEDURE: 12/18/2017 PREOPERATIVE DIAGNOSES: 1. Severe diabetic foot infection, left medial foot just below the medial malleolus, tracking deep d own towards the cuboid bones with negative x-rays and CAT scan for osteomyelitis. 2. Chronic neuropathic plantar arch ulceration present for months prior where a foreign body was rem yaritza; necrotic skin and subcutaneous tissue. POSTOPERATIVE DIAGNOSES: 1. Severe diabetic foot infection, left medial foot just below the medial malleolus, tracking deep d own towards the cuboid bones with negative x-rays and CAT scan for osteomyelitis. 2. Chronic neuropathic plantar arch ulceration present for months prior where a foreign body was rem yaritza; necrotic skin and subcutaneous tissue. PROCEDURES: Debridement of skin, subcutaneous tissue, and connective tissue of left medial foot with drainage of complex deep abscess, left foot diabetic with aggressive irrigation of the wound. Excis ional debridement with sharp 10-blade scalpel; excision of skin and subcutaneous tissue and connectiv e tissue, necrotic. Pulse irrigation and exploration of plantar neuropathic ulceration, chronic from removal of foreign body in the past. SURGEON: Sam Wood MD ANESTHESIA: TIVA. DESCRIPTION OF PROCEDURE: The patient was taken to the operating room, where under intravenous sedat ion, left lower extremity was prepared with ChloraPrep, draped in a routine fashion. Skin and subcut aneous tissue were debrided sharply, excising necrotic tissue as well as subcutaneous tissue and conn ective tissue. Some fascia was debrided. Deep cultures were obtained. Pulse irrigation performed w ith 3 liters of fluid, irrigating this wound and also the plantar ulceration. The medial foot wound extended 4 cm towards the plantar aspect distally and 2-3 cm posteriorly and 2-3 cm undermining super iorly. The patient tolerated the procedure well. Wound care was called and was not available. Thus , wet-to-dry dressing was applied and a wound VAC initiated tomorrow. Long-term prognosis for the foot is poor.
[2017-12-19] MEDS: metroNIDAZOLE 500 MG in Premix Bag 1 BAG IVPB SCH ×3 (05:25→23:05)
[2017-12-19] MEDS: HumaLOG 300 UNITS/3 ML VIAL SC PRN ×4 (06:32→21:20)
--- NOTE | 2017-12-19 08:28 | PRG ---
DATE OF SERVICE: 12/19/2017 SUBJECTIVE: Mr. Hernandez is a 57-year-old male followed up by the [facility] for his main tenance hemodialysis. He was initially admitted for a foot infection. He has a severe diabetic foot infection. He underwent an operative procedure - surgical debridement of the left foot yesterday. I am at the bedside supervising his dialysis. He denies any new complaints today. He denies any rubi st pain or shortness of breath. OBJECTIVE: VITAL SIGNS: Blood pressure 140/65, heart rate 71, respiratory rate 16, temperature 99.2, pulse ox 9 3%. GENERAL: Awake, alert, comfortable, not in distress. SKIN: Adequate turgor. HEENT: Slightly pale conjunctivae, anicteric sclerae. NECK: No neck mass, no carotid bruits. No JVD. CHEST: No deformities. LUNGS: Clear breath sounds, no wheezing, no crackles. HEART: Normal sinus rhythm. No murmur, no gallops or rubs. ABDOMEN: Globular, soft, nontender, no masses. EXTREMITIES: No edema, possible left foot dressing. MEDICATIONS: Of 12/19/2017 was reviewed. LABORATORY DATA: Of 12/18/2017, white count 12.3, hemoglobin 9.8. Sodium 133, potassium 4.6, chlori de 98, carbon dioxide 26, BUN 32, creatinine 5.23, AST 41, ALT 54, albumin 2.9. ASSESSMENT AND PLAN: 1. Anemia - on weekly Epogen, p.r.n. blood transfusion. 2. Left foot infection, status post surgical debridement. The patient is currently on IV antibiotic s. 3. End-stage renal disease, stable. Continuing Sunday, Sunday, Sunday dialysis. Tolerating said treatment. Fluid removal only as tolerated. Recheck base met and CBC in a.m.
[2017-12-19 08:42] LABS: Albumin 2.6 g/dL (3.5-5.0); Anion Gap 15 mmol/L (10-20); BUN (Urea Nitrogen) 52 mg/dL (8.4-25.7); BUN/Creatinine Ratio 7.32; Calc. Creatinine Clearance 19 mL/min (70-130); Carbon Dioxide 26 mmol/L (22-29); Chloride 95 mmol/L (98-107); Estimated GFR-MDRD 8; Glucose 277 mg/dL (70-105); Phosphorus 4.6 mg/dL (2.3-4.7); Potassium 4.4 mmol/L (3.5-5.1); Sodium 132 mmol/L (136-145)
[2017-12-19 09:22] LABS: Vancomycin, Random 14.7 ug/mL (See Comment)
[2017-12-19] MEDS: Vancomycin HCl 1 GM in Premix Bag 1 BAG IVPB SCH (10:53)
[2017-12-19] MEDS: Sevelamer Carbonate 800 MG TAB PO SCH ×3 (11:18→16:38)
[2017-12-19] MEDS: hydrALAZINE 25 MG TAB PO SCH ×3 (11:19→20:57)
--- NOTE | 2017-12-19 11:45 | PDOC.PN ---
- Subjective Encounter Start Date: 12/19/17 Encounter Start Time: 07:15 pt seen in HD room, his pain is controlled - Objective Resuscitation Status: Resuscitation Status FULL:Full Resuscitation MAR Reviewed: Yes Vital Signs & Weight: Vital Signs (12 hours) Temp Pulse Resp BP Pulse Ox 12/19/17 11:19 71 12/19/17 04:00 99.2 F 71 16 140/65 93 L Weight Admit Weight 252 lb 3.2 oz Weight 252 lb 3.2 oz I&O: 12/18/17 12/19/17 12/20/17 06:59 06:59 06:59 Intake Total 200 340 Output Total 125 Balance 200 215 Result Diagrams: 12/18/17 05:40 12/19/17 08:10 Additional Labs: Accuchecks 12/19/17 12/18/17 05:28 19:58 POC Glucose 307 H 281 H Phys Exam - Physical Examination Constitutional: NAD HEENT: PERRLA, moist MMs, sclera anicteric Neck: no JVD, supple Respiratory: no wheezing, no rales, no rhonchi Cardiovascular: RRR, no significant murmur, no rub Gastrointestinal: soft, non-tender, no distention, positive bowel sounds obesity+ right foot with dressing Neurological: non-focal, normal sensation, moves all 4 limbs Lymphatic: no nodes Psychiatric: normal affect, A&O x 3 Skin: no rash, normal turgor Dx/Plan (1) Cellulitis and abscess of foot Code(s): L03.119 - CELLULITIS OF UNSPECIFIED PART OF LIMB; L02.619 - CUTANEOUS ABSCESS OF UNSPECIFIED FOOT Status: Acute Comment: right foot s/p I & D (2) Sepsis Code(s): A41.9 - SEPSIS, UNSPECIFIED ORGANISM Status: Acute (3) Anemia of renal disease Code(s): D63.1 - ANEMIA IN CHRONIC KIDNEY DISEASE Status: Chronic (4) DM2 (diabetes mellitus, type 2) Status: Chronic Qualifiers: Diabetes mellitus florist designer insulin use: with intermediate use Diabetes mellitus complication status: with diabetic arthropathy Diabetes mellitus complication detail: with neuropathic arthropathy Qualified Code(s): E11.610 - Type 2 diabetes mellitus with diabetic neuropathic arthropathy; Z79.4 - supervisor electronics processing (current) use of insulin; Z79.4 - [facility] (current) use of insulin; Z79.4 - supervisor electronics processing (current) use of insulin; Z79.4 - supervisor electronics processing (current) use of insulin (5) Diabetic neuropathic arthropathy Code(s): E11.610 - TYPE 2 DIABETES MELLITUS W DIABETIC NEUROPATHIC ARTHROPATHY Status: Chronic (6) Dyslipidemia Code(s): E78.5 - HYPERLIPIDEMIA, UNSPECIFIED Status: Chronic (7) ESRD (end stage renal disease) on dialysis Code(s): N18.6 - END STAGE RENAL DISEASE; Z99.2 - DEPENDENCE ON RENAL DIALYSIS Status: Chronic (8) HTN (hypertension) Code(s): I10 - ESSENTIAL (PRIMARY) HYPERTENSION Status: Chronic Qualifiers: Hypertension type: essential hypertension Qualified Code(s): I10 - Essential (primary) hypertension (9) Obesity (BMI 30-39.9) Code(s): E66.9 - OBESITY, UNSPECIFIED Status: Chronic (10) Secondary hyperparathyroidism of renal origin Code(s): N25.81 - SECONDARY HYPERPARATHYROIDISM OF RENAL ORIGIN Status: Chronic - Plan cont current plan of care, continue antibiotics, social services director * continue HD as per nephrology * continue wound care, he will need wound vac * follow on final culture result, currently on vancomycin, meropenam and flagyl * Dr calvert will decide if MRI needed or not * medication reviewed as below * symptomatic treatment. Review of Systems - Review of Systems Eyes: negative: Pain, Vision Change, Conjunctivae Inflammation, Eyelid Inflammation, Redness, Other ENT: negative: Ear Pain, Ear Discharge, Nose Pain, Nose Discharge, Nose Congestion, Mouth Pain, Mouth Swelling, Throat Pain, Throat Swelling, Other Respiratory: negative: Cough, Dry, Shortness of Breath, Hemoptysis, SOB with Excertion, Pleuritic Pain, Sputum, Wheezing Cardiovascular: negative: chest pain, palpitations, orthopnea, paroxysmal nocturnal dyspnea, edema, light headedness, other Gastrointestinal: negative: Nausea, Vomiting, Abdominal Pain, Diarrhea, Constipation, Melena, Hematochezia, Other Genitourinary: negative: Dysuria, Frequency, Incontinence, Hematuria, Retention , Other Musculoskeletal: Foot Pain. negative: Neck Pain, Shoulder Pain, Arm Pain, Back Pain, Hand Pain, Leg Pain, Other Skin: negative: Rash, Lesions, Bray[place], Bruising, Other - Medications/Allergies Allergies/Adverse Reactions: Allergies Allergy/AdvReac Type Severity Reaction Status Date / Time No Known Allergies Allergy Verified 12/17/17 04:25 Medications: Current Medications Acetaminophen (Tylenol) 1,000 mg PO Q6H PRN PRN Reason: Moderate to Severe Pain (6-10) Amlodipine Besylate (Norvasc) 10 mg PO DAILY [facility] Last Admin: 12/18/17 08:50 Dose: 10 mg Artificial Tears (Tears Naturale) 0 drop EA EYE PRN PRN PRN Reason: Dry Eyes Aspirin (Aspirin) 325 mg PO DAILY [facility] Last Admin: 12/18/17 19:37 Dose: Not Given Atorvastatin Calcium (Lipitor) 10 mg PO HS [facility] Last Admin: 12/18/17 20:49 Dose: 10 mg Calcium Carbonate (Tums) 1,000 mg PO Q4H PRN PRN Reason: Heartburn or Indigestion Cholecalciferol (Vitamin D3) 1,000 units PO DAILY [facility] Last Admin: 12/18/17 19:37 Dose: Not Given Clonidine (Catapres) 0.1 mg PO BID [facility] Last Admin: 12/18/17 20:49 Dose: 0.1 mg Dextrose/Water (Dextrose 50%) 25 gm SLOW IVP PRN PRN PRN Reason: Hypoglycemia Epoetin Luciano (Procrit) 7,500 units SC Q7D [facility] Last Admin: 12/17/17 10:38 Dose: 7,500 units Famotidine (Pepcid) 20 mg PO DAILY [facility] Last Admin: 12/18/17 19:37 Dose: Not Given Ferrous Sulfate (Feosol) 325 mg PO QA-[facility] Last Admin: 12/18/17 19:37 Dose: Not Given Gabapentin (Neurontin) 100 mg PO DAILY [facility] Glucagon (Glucagon) 1 mg IM PRN PRN PRN Reason: Hypoglycemia Guaifenesin (Robitussin Sf) 200 mg PO Q4H PRN PRN Reason: Cough Heparin Sodium (Porcine) (Heparin) 5,000 units SC BID [facility] Last Admin: 12/18/17 20:50 Dose: 5,000 units Hydralazine HCl (Apresoline) 10 mg SLOW IVP Q4H PRN PRN Reason: Systolic BP > 180 Last Admin: 12/17/17 09:13 Dose: 10 mg Hydralazine HCl (Apresoline) 100 mg PO TID [facility] Last Admin: 12/19/17 11:19 Dose: Not Given Dextrose/Water (D5w) 1,000 mls @ 0 mls/hr IV .Q0M PRN PRN Reason: Hypoglycemia Metronidazole 500 mg/ Device 100 mls @ 100 mls/hr IVPB Q8HR [facility] Last Admin: 12/19/17 05:25 Dose: 100 mls Vancomycin HCl 1.5 gm/ Sodium (Chloride) 300 mls @ 200 mls/hr IVPB WILLCALL [facility] Vancomycin HCl 1.25 gm/ Sodium (Chloride) 250 mls @ 166.667 mls/hr IVPB WILLCALL [facility] Vancomycin HCl 1 gm/ Device 200 mls @ 200 mls/hr IVPB WILLCALL [facility] Last Admin: 12/19/17 10:53 Dose: 200 mls Vancomycin HCl 750 mg/ Sodium (Chloride) 250 mls @ 250 mls/hr IVPB WILLCALL [facility] Meropenem 500 mg/ Sodium (Chloride) 100 mls @ 200 mls/hr IVPB 1200 [facility] Insulin Human Lispro (Humalog) 0 units SC .MODERATE SLIDING SC PRN PRN Reason: Moderate Correctional Scale Last Admin: 12/19/17 06:32 Dose: 8 unit Insulin Human Lispro (Humalog) 0 units SC .BEDTIME SLIDING SC PRN PRN Reason: Bedtime Correctional Scale Last Admin: 12/18/17 20:51 Dose: 3 unit Isosorbide Mononitrate (Imdur) 60 mg PO DAILY [facility] Last Admin: 12/18/17 08:50 Dose: 60 mg Loperamide HCl (Imodium) 2 mg PO PRN PRN PRN Reason: Diarrhea/Loose Stools Magnesium Hydroxide (Milk Of Magnesium) 30 ml PO DAILYPRN PRN PRN Reason: Constipation Mineral Oil/White Petrolatum (Eucerin Cream) 0 gm TOP BIDPRN PRN PRN Reason: Dry Skin Miscellaneous Medication (Pharmacy To Dose) 1 each IVPB ONE PRN PRN Reason: Pharmacy to dose Stop: 12/27/17 06:54 Morphine Sulfate (Morphine) 2 mg SLOW IVP Q2H PRN PRN Reason: Pain Last Admin: 12/17/17 12:02 Dose: 2 mg Hold Vancomycin For (Level >20) 0 each FS .AT DIALYSIS [facility] Ondansetron HCl (Zofran Odt) 4 mg PO Q6H PRN PRN Reason: Nausea/Vomiting Last Admin: 12/17/17 09:13 Dose: 4 mg Ondansetron HCl (Zofran) 4 mg IVP Q6H PRN PRN Reason: Nausea/Vomiting Polyethylene Glycol (Miralax) 17 gm PO DAILY [facility] Saccharomyces Boulardii (Florastor) 250 mg PO DAILY [facility] Last Admin: 12/18/17 19:38 Dose: Not Given Senna (Senokot) 2 tab PO HSPRN PRN PRN Reason: Constipation Sevelamer Carbonate (Renvela) 800 mg PO TID-[facility] Last Admin: 12/19/17 11:18 Dose: Not Given Sodium Chloride (Flush - Normal Saline) 10 ml IVF PRN PRN PRN Reason: Saline Flush Last Admin: 12/19/17 05:25 Dose: 10 ml Sodium Chloride (Flush - Normal Saline) 10 ml IVF PRN PRN PRN Reason: Saline Flush Tramadol HCl (Ultram) 50 mg PO Q6H PRN PRN Reason: Pain 1-5 Vitamin B Complex/Vit C/Folic Acid (Nephro-Abbey Tablet) 1 tab PO DAILY [facility] Last Admin: 12/18/17 19:37 Dose: Not Given Zolpidem Tartrate (Ambien) 5 mg PO HSPRN PRN PRN Reason: Insomnia
[2017-12-19] MEDS ORDERED: Meropenem 500 MG in Sodium Chloride 0.9% 100 ML IVPB SCH (12:00)
[2017-12-19] MEDS: Famotidine 20 MG TAB PO SCH (12:39)
[2017-12-19] MEDS: cloNIDine 0.1 MG TAB PO SCH ×2 (12:40→20:56)
[2017-12-19] MEDS: Ferrous Sulfate 325 MG TAB PO SCH (12:40)
[2017-12-19] MEDS: Gabapentin 100 MG CAP PO SCH (12:40)
[2017-12-19] MEDS: Amlodipine 10 MG TAB PO SCH (12:40)
[2017-12-19] MEDS: Aspirin 325 MG TAB PO SCH (12:40)
[2017-12-19] MEDS: Saccharomyces boulardii 250 MG CAP PO SCH (12:40)
[2017-12-19] MEDS: Polyethylene Glycol 3350 17 GM Packet PO SCH (12:43)
[2017-12-19] MEDS: Folic Acid/Vit B Comp W-C PO SCH (12:53)
[2017-12-19] MEDS: Heparin 5,000 UNITS/ML VIAL SC SCH ×2 (12:56→20:56)
[2017-12-19] MEDS: Meropenem 500 MG in Sodium Chloride 0.9% 100 ML IVPB SCH (12:56)
[2017-12-19] MEDS ORDERED: CEFAZOLIN/Water 2 GM/20 ML SYRINGE SLOW IVP SCH (17:30)
[2017-12-19] MEDS ORDERED: CEFAZOLIN 3 GM in Sodium Chloride 0.9% 100 ML IVPB SCH (18:00)
--- NOTE | 2017-12-19 19:34 | PRG ---
DATE OF SERVICE: 12/19/2017 SUBJECTIVE: The patient had surgical debridement, Dr. Wood's surgical report was reviewed and the excision of necrotic tissue at the base, some fascia was debrided. The cultures obtained. Irrigatio n performed. The wound extended 4 cm deep, 3 cm posteriorly, and 2-3 cm superiorly. Currently, he d enies any major pain or respiratory symptoms, or abdominal pain or diarrhea. OBJECTIVE: VITAL SIGNS: Normal. LUNGS: Clear. HEART: S1, S2, regular rate. ABDOMEN: Soft, not distended. LABORATORY DATA: White cell count is 12.3, hemoglobin 9.8, platelets 385. Sodium 132, creatinine 7. 10. Microbiology with Staphylococcus aureus, which is methicillin sensitive. ASSESSMENT AND DISCUSSION: Type 2 diabetes, end-stage renal disease on hemodialysis on AV fistula an d right plantar mid to hindfoot abscess status post debridement secondary to methicillin-sensitive st aphylococcus aureus. No evidence of bone involvement. The process seems to stop at the facial level . We will continue IV therapy. He is currently receiving meropenem. We will transition him to cefa zolin 3 grams given after each dialysis and continue treating at dialysis for around 2 weeks and then transition to oral Keflex after that.
[2017-12-19] MEDS: Atorvastatin Calcium 10 MG TAB PO SCH (20:56)
[2017-12-20 05:34] LABS: #Eosinphils 0.2 thou/uL (0.0-0.7); #Lymphocytes 1.6 thou/uL (1.20-3.40); #Monocytes 0.8 thou/uL (0.11-0.59); #Neutrophils 7.7 thou/uL (1.40-6.50); %Basophils 0.2 % (0.0-1.0); %Eosinophils 1.9 % (0.0-10.0); %Lymphocytes 15.8 % (21.0-51.0); %Monocytes 7.4 % (0.0-10.0); %Neutrophils 74.7 % (42.0-75.0); Hemoglobin 9.2 g/dL (14.0-18.0); Mean Corpuscular HGB CONC 32.8 g/dL (32.0-36.0); Mean Corpuscular Hemoglobin 31.2 pg (27.0-31.0); Mean Corpuscular Volume 95.1 fL (78.0-98.0); Mean Platelet Volume 6.3 fL (7.4-10.4); Platelet Count 347 thou/uL (130-400); RBC Distribution Width 13.4 % (11.5-14.5); Red Blood Cell (RBC) Count 2.95 mill/uL (4.70-6.10); White Blood Cell (WBC) Count 10.3 thou/uL (4.8-10.8)
[2017-12-20 05:39] LABS: Anion Gap 16 mmol/L (10-20); BUN (Urea Nitrogen) 33 mg/dL (8.4-25.7); Calc. Creatinine Clearance 26 mL/min (70-130); Carbon Dioxide 25 mmol/L (22-29); Chloride 95 mmol/L (98-107); Estimated GFR-MDRD 12; Glucose 220 mg/dL (70-105); Potassium 4.3 mmol/L (3.5-5.1); Sodium 132 mmol/L (136-145)
[2017-12-20] MEDS: metroNIDAZOLE 500 MG in Premix Bag 1 BAG IVPB SCH ×3 (05:52→22:14)
[2017-12-20] MEDS: HumaLOG 300 UNITS/3 ML VIAL SC PRN ×4 (05:58→20:00)
[2017-12-20] MEDS: Gabapentin 100 MG CAP PO SCH (08:10)
[2017-12-20] MEDS: Amlodipine 10 MG TAB PO SCH (08:10)
[2017-12-20] MEDS: Ferrous Sulfate 325 MG TAB PO SCH (08:10)
[2017-12-20] MEDS: Famotidine 20 MG TAB PO SCH (08:10)
[2017-12-20] MEDS: Polyethylene Glycol 3350 17 GM Packet PO SCH (08:10)
[2017-12-20] MEDS: Aspirin 325 MG TAB PO SCH (08:11)
[2017-12-20] MEDS: hydrALAZINE 25 MG TAB PO SCH ×3 (08:11→20:01)
[2017-12-20] MEDS: Saccharomyces boulardii 250 MG CAP PO SCH (08:11)
[2017-12-20] MEDS: cloNIDine 0.1 MG TAB PO SCH ×2 (08:11→20:00)
[2017-12-20] MEDS: Sevelamer Carbonate 800 MG TAB PO SCH ×3 (08:11→18:17)
[2017-12-20] MEDS: Folic Acid/Vit B Comp W-C PO SCH (08:14)
--- NOTE | 2017-12-20 08:16 | PRG ---
DATE OF SERVICE: 12/20/2017 SUBJECTIVE: Mr. Hernandez is a 57-year-old male with ESRD and being followed by the [facility] for his maintenance hemodialysis. He was initially admitted for a foot infection. He has under gone a surgical debridement with his involved foot. Currently, has a wound VAC. He is also receivin g antibiotics. No complaints of chest pain or shortness of breath. OBJECTIVE: VITAL SIGNS: Blood pressure is 122/58, heart rate 68, respiratory rate 24, temperature 98.7, pulse o x 94%. GENERAL: Noted to be awake, supine, comfortable, not in distress SKIN: Adequate turgor. HEENT: He has slightly pale conjunctivae, anicteric sclerae. NECK: No neck mass, no carotid bruits, no JVD. CHEST: No deformities. LUNGS: Clear breath sounds. No wheezing, no crackles. HEART: Normal sinus rhythm. No murmur, no gallops or rubs. ABDOMEN: Globular, soft, nontender, no masses. EXTREMITIES: No edema. Positive for left foot dressing - positive for a wound VAC. MEDICATIONS: 12/20/2017 - Reviewed. LABORATORY DATA: 12/20/2017 - White count 10.2, hemoglobin 9.2. Sodium 132, potassium 4.3, chloride 95, carbon dioxide 25, BUN 33, creatinine 5.0, glucose 220, calcium 8.0. ASSESSMENT AND PLAN: 1. Left foot infection - status post surgical debridement. The patient currently on antibiotics. 2. End-stage renal disease, stable. We will continue current Sunday, Sunday, Sunday dialysis. A gain, fluid removal only as tolerated. 3. Anemia on weekly Epogen, p.r.n. blood transfusion.
[2017-12-20] MEDS: Heparin 5,000 UNITS/ML VIAL SC SCH ×2 (08:19→19:59)
--- NOTE | 2017-12-20 10:01 | PDOC.PN ---
- Subjective Encounter Start Date: 12/20/17 Encounter Start Time: 07:10 Patient seen and examined. No new complaints. No overnight events - Objective Resuscitation Status: Resuscitation Status FULL:Full Resuscitation MAR Reviewed: Yes Vital Signs & Weight: Vital Signs (12 hours) Temp Pulse Resp BP BP Pulse Ox 12/20/17 08:11 68 117/57 L 12/20/17 08:10 68 12/20/17 07:39 98.7 F 68 24 H 122/58 L 94 L Weight Admit Weight 252 lb 3.2 oz Weight 252 lb 3.2 oz I&O: 12/19/17 12/20/17 12/21/17 06:59 06:59 06:59 Intake Total 340 1720 240 Output Total 125 3200 Balance 215 -1480 240 Result Diagrams: 12/20/17 05:13 12/20/17 05:13 Additional Labs: Accuchecks 12/20/17 12/19/17 12/19/17 05:56 21:10 16:20 POC Glucose 216 H 256 H 223 H 12/19/17 12:27 POC Glucose 159 H Phys Exam - Physical Examination Constitutional: NAD HEENT: PERRLA, moist MMs, sclera anicteric Neck: no JVD, supple Respiratory: no wheezing, no rales, no rhonchi Cardiovascular: RRR, no significant murmur, no rub Gastrointestinal: soft, non-tender, no distention, positive bowel sounds Musculoskeletal: no edema, pulses present wound vac in place Neurological: non-focal, normal sensation, moves all 4 limbs Psychiatric: normal affect, A&O x 3 Skin: no rash, normal turgor Dx/Plan (1) Cellulitis and abscess of foot Code(s): L03.119 - CELLULITIS OF UNSPECIFIED PART OF LIMB; L02.619 - CUTANEOUS ABSCESS OF UNSPECIFIED FOOT Status: Acute Comment: right foot s/p I & D (2) Sepsis Code(s): A41.9 - SEPSIS, UNSPECIFIED ORGANISM Status: Acute (3) Anemia of renal disease Code(s): D63.1 - ANEMIA IN CHRONIC KIDNEY DISEASE Status: Chronic (4) DM2 (diabetes mellitus, type 2) Status: Chronic Qualifiers: Diabetes mellitus alf insulin use: with intermediate accountant use Diabetes mellitus complication status: with diabetic arthropathy Diabetes mellitus complication detail: with neuropathic arthropathy Qualified Code(s): E11.610 - Type 2 diabetes mellitus with diabetic neuropathic arthropathy; Z79.4 - intermediate accountant (current) use of insulin; Z79.4 - intermediate accountant (current) use of insulin; Z79.4 - intermediate accountant (current) use of insulin; Z79.4 - halfway (current) use of insulin (5) Diabetic neuropathic arthropathy Code(s): E11.610 - TYPE 2 DIABETES MELLITUS W DIABETIC NEUROPATHIC ARTHROPATHY Status: Chronic (6) Dyslipidemia Code(s): E78.5 - HYPERLIPIDEMIA, UNSPECIFIED Status: Chronic (7) ESRD (end stage renal disease) on dialysis Code(s): N18.6 - END STAGE RENAL DISEASE; Z99.2 - DEPENDENCE ON RENAL DIALYSIS Status: Chronic (8) HTN (hypertension) Code(s): I10 - ESSENTIAL (PRIMARY) HYPERTENSION Status: Chronic Qualifiers: Hypertension type: essential hypertension Qualified Code(s): I10 - Essential (primary) hypertension (9) Obesity (BMI 30-39.9) Code(s): E66.9 - OBESITY, UNSPECIFIED Status: Chronic (10) Secondary hyperparathyroidism of renal origin Code(s): N25.81 - SECONDARY HYPERPARATHYROIDISM OF RENAL ORIGIN Status: Chronic - Plan cont current plan of care, continue antibiotics, 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 * medication reviewed as below * symptomatic treatment Review of Systems - Review of Systems Eyes: negative: Pain, Vision Change, Conjunctivae Inflammation, Eyelid Inflammation, Redness, Other ENT: negative: Ear Pain, Ear Discharge, Nose Pain, Nose Discharge, Nose Congestion, Mouth Pain, Mouth Swelling, Throat Pain, Throat Swelling, Other Respiratory: negative: Cough, Dry, Shortness of Breath, Hemoptysis, SOB with Excertion, Pleuritic Pain, Sputum, Wheezing Cardiovascular: negative: chest pain, palpitations, orthopnea, paroxysmal nocturnal dyspnea, edema, light headedness, other Gastrointestinal: negative: Nausea, Vomiting, Abdominal Pain, Diarrhea, Constipation, Melena, Hematochezia, Other Genitourinary: negative: Dysuria, Frequency, Incontinence, Hematuria, Retention , Other Musculoskeletal: negative: Neck Pain, Shoulder Pain, Arm Pain, Back Pain, Hand Pain, Leg Pain, Foot Pain, Other - Medications/Allergies Allergies/Adverse Reactions: Allergies Allergy/AdvReac Type Severity Reaction Status Date / Time No Known Allergies Allergy Verified 12/17/17 04:25 Medications: Current Medications Acetaminophen (Tylenol) 1,000 mg PO Q6H PRN PRN Reason: Moderate to Severe Pain (6-10) Amlodipine Besylate (Norvasc) 10 mg PO DAILY [facility] Last Admin: 12/20/17 08:10 Dose: 10 mg Artificial Tears (Tears Naturale) 0 drop EA EYE PRN PRN PRN Reason: Dry Eyes Aspirin (Aspirin) 325 mg PO DAILY [facility] Last Admin: 12/20/17 08:11 Dose: 325 mg Atorvastatin Calcium (Lipitor) 10 mg PO HS [facility] Last Admin: 12/19/17 20:56 Dose: 10 mg Calcium Carbonate (Tums) 1,000 mg PO Q4H PRN PRN Reason: Heartburn or Indigestion Cholecalciferol (Vitamin D3) 1,000 units PO DAILY [facility] Last Admin: 12/20/17 08:10 Dose: 1,000 units Clonidine (Catapres) 0.1 mg PO BID [facility] Last Admin: 12/20/17 08:11 Dose: 0.1 mg Dextrose/Water (Dextrose 50%) 25 gm SLOW IVP PRN PRN PRN Reason: Hypoglycemia Epoetin Luciano (Procrit) 7,500 units SC Q7D [facility] Last Admin: 12/17/17 10:38 Dose: 7,500 units Famotidine (Pepcid) 20 mg PO DAILY [facility] Last Admin: 12/20/17 08:10 Dose: 20 mg Ferrous Sulfate (Feosol) 325 mg PO QA[facility] Last Admin: 12/20/17 08:10 Dose: 325 mg Gabapentin (Neurontin) 100 mg PO DAILY [facility] Last Admin: 12/20/17 08:10 Dose: 100 mg Glucagon (Glucagon) 1 mg IM PRN PRN PRN Reason: Hypoglycemia Guaifenesin (Robitussin Sf) 200 mg PO Q4H PRN PRN Reason: Cough Heparin Sodium (Porcine) (Heparin) 5,000 units SC BID [facility] Last Admin: 12/20/17 08:19 Dose: 5,000 units Hydralazine HCl (Apresoline) 10 mg SLOW IVP Q4H PRN PRN Reason: Systolic BP > 180 Last Admin: 12/17/17 09:13 Dose: 10 mg Hydralazine HCl (Apresoline) 100 mg PO TID [facility] Last Admin: 12/20/17 08:11 Dose: 100 mg Dextrose/Water (D5w) 1,000 mls @ 0 mls/hr IV .Q0M PRN PRN Reason: Hypoglycemia Metronidazole 500 mg/ Device 100 mls @ 100 mls/hr IVPB Q8HR [facility] Last Admin: 12/20/17 05:52 Dose: 100 mls Cefazolin Sodium 3 gm/ Sodium (Chloride) 100 mls @ 200 mls/hr IVPB [id number] [facility] Stop: 01/02/18 12:01 Insulin Human Lispro (Humalog) 0 units SC .MODERATE SLIDING SC PRN PRN Reason: Moderate Correctional Scale Last Admin: 12/20/17 05:58 Dose: 4 unit Insulin Human Lispro (Humalog) 0 units SC .BEDTIME SLIDING SC PRN PRN Reason: Bedtime Correctional Scale Last Admin: 12/19/17 21:20 Dose: 3 unit Isosorbide Mononitrate (Imdur) 60 mg PO DAILY [facility] Last Admin: 12/20/17 08:10 Dose: 60 mg Loperamide HCl (Imodium) 2 mg PO PRN PRN PRN Reason: Diarrhea/Loose Stools Magnesium Hydroxide (Milk Of Magnesium) 30 ml PO DAILYPRN PRN PRN Reason: Constipation Mineral Oil/White Petrolatum (Eucerin Cream) 0 gm TOP BIDPRN PRN PRN Reason: Dry Skin Morphine Sulfate (Morphine) 2 mg SLOW IVP Q2H PRN PRN Reason: Pain Last Admin: 12/19/17 21:06 Dose: 2 mg Ondansetron HCl (Zofran Odt) 4 mg PO Q6H PRN PRN Reason: Nausea/Vomiting Last Admin: 12/17/17 09:13 Dose: 4 mg Ondansetron HCl (Zofran) 4 mg IVP Q6H PRN PRN Reason: Nausea/Vomiting Polyethylene Glycol (Miralax) 17 gm PO DAILY [facility] Last Admin: 12/20/17 08:10 Dose: 17 gm Saccharomyces Boulardii (Florastor) 250 mg PO DAILY [facility] Last Admin: 12/20/17 08:11 Dose: 250 mg Senna (Senokot) 2 tab PO HSPRN PRN PRN Reason: Constipation Sevelamer Carbonate (Renvela) 800 mg PO TID-WM [facility] Last Admin: 12/20/17 08:11 Dose: 800 mg Sodium Chloride (Flush - Normal Saline) 10 ml IVF PRN PRN PRN Reason: Saline Flush Last Admin: 12/20/17 08:14 Dose: 10 ml Sodium Chloride (Flush - Normal Saline) 10 ml IVF PRN PRN PRN Reason: Saline Flush Tramadol HCl (Ultram) 50 mg PO Q6H PRN PRN Reason: Pain 1-5 Vitamin B Complex/Vit C/Folic Acid (Nephro-Abbey Tablet) 1 tab PO DAILY [facility] Last Admin: 12/20/17 08:14 Dose: 1 tab Zolpidem Tartrate (Ambien) 5 mg PO HSPRN PRN PRN Reason: Insomnia
[2017-12-20] MEDS: Atorvastatin Calcium 10 MG TAB PO SCH (20:00)
[2017-12-21] MEDS: HumaLOG 300 UNITS/3 ML VIAL SC PRN ×3 (05:35→17:03)
[2017-12-21] MEDS: metroNIDAZOLE 500 MG in Premix Bag 1 BAG IVPB SCH ×2 (05:45→14:01)
[2017-12-21 06:49] VITALS: TEMP 99.2
[2017-12-21] MEDS: hydrALAZINE 25 MG TAB PO SCH ×2 (09:00→15:50)
[2017-12-21] MEDS: cloNIDine 0.1 MG TAB PO SCH (09:00)
[2017-12-21] MEDS: Heparin 5,000 UNITS/ML VIAL SC SCH (09:00)
--- NOTE | 2017-12-21 09:31 | PRG ---
DATE OF SERVICE: 12/21/2017 SUBJECTIVE: Mr. Hernandez is a 57-year-old male with known history of ESRD and admitted for right foot infection. He is currently on IV antibiotics and underwent surgical debridement. I am at the bedside now supervising his dialysis. No complaints. No acute events. OBJECTIVE: VITAL SIGNS: Blood pressure 122/60, heart rate 67, respiratory 16, temperature 99.2. GENERAL: Awake, alert, supine, comfortable. SKIN: Adequate turgor. HEENT: He has slightly pale conjunctivae, anicteric sclerae. NECK: No neck mass, no carotid bruits, no JVD. CHEST: No deformities. LUNGS: Clear breath sounds. No wheezing, no crackles. HEART: Normal sinus rhythm. No murmur, no gallops or rubs. ABDOMEN: Globular, soft, nontender, no masses. EXTREMITIES: No edema. Positive for right foot dressing with right wound VAC. MEDICATIONS: 12/21/2017 - Reviewed. LABORATORY: 12/20/2017 - White count 10.3, hemoglobin 9.2. Sodium 132, potassium 4.3, chloride 95, carbon dioxide 25, BUN 33, creatinine 5, calcium 8. ASSESSMENT AND PLAN: 1. End-stage renal disease, stable. Continuing current hemodialysis regimen. Fluid removal as tole rated. Continue Sunday, Sunday treatment. 2. Right foot infection. Status post surgical debridement on IV Ancef. I have made arrangements to continue IV antibiotics in the outpatient dialysis setting as per recommendation by his Infectious D isease doctor. 3. Anemia, on weekly Epogen. I agree with current management.
[2017-12-21] MEDS ORDERED: CEFAZOLIN 3 GM in Sodium Chloride 0.9% 100 ML IVPB SCH (12:00)
--- NOTE | 2017-12-21 12:08 | PDOC.PN ---
- Subjective Encounter Start Date: 12/21/17 Encounter Start Time: 09:00 Patient seen and examined during dialysis. No new complaints. No overnight events - Objective Resuscitation Status: Resuscitation Status FULL:Full Resuscitation MAR Reviewed: Yes Vital Signs & Weight: Vital Signs (12 hours) Temp Pulse Resp BP Pulse Ox 12/21/17 06:48 99.2 F 67 16 122/60 94 L Weight Admit Weight 252 lb 3.2 oz Weight 252 lb 3.2 oz I&O: 12/20/17 12/21/17 12/22/17 06:59 06:59 06:59 Intake Total 1720 2100 Output Total 3200 0 Balance -1480 2100 Result Diagrams: 12/20/17 05:13 12/20/17 05:13 Additional Labs: Accuchecks 12/21/17 12/20/17 12/20/17 05:27 19:39 16:15 POC Glucose 301 H 315 H 283 H Phys Exam - Physical Examination Constitutional: NAD Respiratory: no wheezing, no rhonchi Cardiovascular: RRR, no rub Gastrointestinal: soft, non-tender, positive bowel sounds Musculoskeletal: no edema wound vac + Neurological: moves all 4 limbs Dx/Plan - Plan continue antibiotics, DVT proph w/heparin, DVT proph w/SCDs IMPRESSION: 1. Sepsis due to diabetic foot infection - on Ancef/Flagyl 2. DM2 - uncontrolled - on sliding scale 3. HTN - on Amlodipine/Hydralazine/Imdur 4. ESRD on dialysis / Obesity BMI 39.5 / HLD 5. Other issues per previous notes PLAN: Resume Lantus, Cont Sliding scale Cont Atbx/wound care Await home wound vac setup Dialysis per Nephro Cont current meds as below Review of Systems - Review of Systems Respiratory: negative: Cough, Dry, Shortness of Breath, Hemoptysis, SOB with Excertion, Pleuritic Pain, Sputum, Wheezing Cardiovascular: negative: chest pain, palpitations, orthopnea, paroxysmal nocturnal dyspnea, edema, light headedness, other - Medications/Allergies Allergies/Adverse Reactions: Allergies Allergy/AdvReac Type Severity Reaction Status Date / Time No Known Allergies Allergy Verified 12/17/17 04:25 Medications: Current Medications Acetaminophen (Tylenol) 1,000 mg PO Q6H PRN PRN Reason: Moderate to Severe Pain (6-10) Amlodipine Besylate (Norvasc) 10 mg PO DAILY [facility] Last Admin: 12/20/17 08:10 Dose: 10 mg Artificial Tears (Tears Naturale) 0 drop EA EYE PRN PRN PRN Reason: Dry Eyes Aspirin (Aspirin) 325 mg PO DAILY [facility] Last Admin: 12/20/17 08:11 Dose: 325 mg Atorvastatin Calcium (Lipitor) 10 mg PO HS [facility] Last Admin: 12/20/17 20:00 Dose: 10 mg Calcium Carbonate (Tums) 1,000 mg PO Q4H PRN PRN Reason: Heartburn or Indigestion Cholecalciferol (Vitamin D3) 1,000 units PO DAILY [facility] Last Admin: 12/20/17 08:10 Dose: 1,000 units Clonidine (Catapres) 0.1 mg PO BID [facility] Last Admin: 12/20/17 20:00 Dose: 0.1 mg Dextrose/Water (Dextrose 50%) 25 gm SLOW IVP PRN PRN PRN Reason: Hypoglycemia Epoetin Luciano (Procrit) 7,500 units SC Q7D [facility] Last Admin: 12/17/17 10:38 Dose: 7,500 units Famotidine (Pepcid) 20 mg PO DAILY [facility] Last Admin: 12/20/17 08:10 Dose: 20 mg Ferrous Sulfate (Feosol) 325 mg PO QAM-[facility] Last Admin: 12/20/17 08:10 Dose: 325 mg Gabapentin (Neurontin) 100 mg PO DAILY [facility] Last Admin: 12/20/17 08:10 Dose: 100 mg Glucagon (Glucagon) 1 mg IM PRN PRN PRN Reason: Hypoglycemia Guaifenesin (Robitussin Sf) 200 mg PO Q4H PRN PRN Reason: Cough Heparin Sodium (Porcine) (Heparin) 5,000 units SC BID [facility] Last Admin: 12/20/17 19:59 Dose: 5,000 units Hydralazine HCl (Apresoline) 10 mg SLOW IVP Q4H PRN PRN Reason: Systolic BP > 180 Last Admin: 12/17/17 09:13 Dose: 10 mg Hydralazine HCl (Apresoline) 100 mg PO TID [facility] Last Admin: 12/20/17 20:01 Dose: 100 mg Dextrose/Water (D5w) 1,000 mls @ 0 mls/hr IV .Q0M PRN PRN Reason: Hypoglycemia Metronidazole 500 mg/ Device 100 mls @ 100 mls/hr IVPB Q8HR [facility] Last Admin: 12/21/17 05:45 Dose: 100 mls Cefazolin Sodium 3 gm/ Sodium (Chloride) 100 mls @ 200 mls/hr IVPB [id number]@1200 [facility] Stop: 01/02/18 12:01 Insulin Human Lispro (Humalog) 0 units SC .MODERATE SLIDING SC PRN PRN Reason: Moderate Correctional Scale Last Admin: 12/21/17 05:35 Dose: 8 unit Insulin Human Lispro (Humalog) 0 units SC .BEDTIME SLIDING SC PRN PRN Reason: Bedtime Correctional Scale Last Admin: 12/20/17 20:00 Dose: 3 unit Isosorbide Mononitrate (Imdur) 60 mg PO DAILY [facility] Last Admin: 12/20/17 08:10 Dose: 60 mg Loperamide HCl (Imodium) 2 mg PO PRN PRN PRN Reason: Diarrhea/Loose Stools Magnesium Hydroxide (Milk Of Magnesium) 30 ml PO DAILYPRN PRN PRN Reason: Constipation Mineral Oil/White Petrolatum (Eucerin Cream) 0 gm TOP BIDPRN PRN PRN Reason: Dry Skin Morphine Sulfate (Morphine) 2 mg SLOW IVP Q2H PRN PRN Reason: Pain Last Admin: 12/19/17 21:06 Dose: 2 mg Ondansetron HCl (Zofran Odt) 4 mg PO Q6H PRN PRN Reason: Nausea/Vomiting Last Admin: 12/17/17 09:13 Dose: 4 mg Ondansetron HCl (Zofran) 4 mg IVP Q6H PRN PRN Reason: Nausea/Vomiting Polyethylene Glycol (Miralax) 17 gm PO DAILY [facility] Last Admin: 12/20/17 08:10 Dose: 17 gm Saccharomyces Boulardii (Florastor) 250 mg PO DAILY [facility] Last Admin: 12/20/17 08:11 Dose: 250 mg Senna (Senokot) 2 tab PO HSPRN PRN PRN Reason: Constipation Sevelamer Carbonate (Renvela) 800 mg PO TID-[facility] Last Admin: 12/20/17 18:17 Dose: 800 mg Sodium Chloride (Flush - Normal Saline) 10 ml IVF PRN PRN PRN Reason: Saline Flush Last Admin: 12/20/17 08:14 Dose: 10 ml Sodium Chloride (Flush - Normal Saline) 10 ml IVF PRN PRN PRN Reason: Saline Flush Tramadol HCl (Ultram) 50 mg PO Q6H PRN PRN Reason: Pain 1-5 Vitamin B Complex/Vit C/Folic Acid (Nephro-Abbey Tablet) 1 tab PO DAILY [facility] Last Admin: 12/20/17 08:14 Dose: 1 tab Zolpidem Tartrate (Ambien) 5 mg PO HSPRN PRN PRN Reason: Insomnia
[2017-12-21] MEDS ORDERED: Insulin Glargine 10 UNITS in Pre-Filled Syringe 1 EACH SC SCH ×2 (12:15→21:00)
[2017-12-21] MEDS: Ferrous Sulfate 325 MG TAB PO SCH (13:14)
[2017-12-21] MEDS: Sevelamer Carbonate 800 MG TAB PO SCH ×3 (13:15→17:10)
[2017-12-21] MEDS: Aspirin 325 MG TAB PO SCH (13:16)
[2017-12-21] MEDS: Amlodipine 10 MG TAB PO SCH (13:17)
[2017-12-21] MEDS: Famotidine 20 MG TAB PO SCH (13:17)
[2017-12-21] MEDS: Gabapentin 100 MG CAP PO SCH (13:18)
[2017-12-21] MEDS: Folic Acid/Vit B Comp W-C PO SCH (13:18)
[2017-12-21] MEDS: Polyethylene Glycol 3350 17 GM Packet PO SCH (13:19)
[2017-12-21] MEDS: Saccharomyces boulardii 250 MG CAP PO SCH (13:19)
--- NOTE | 2017-12-21 16:58 | PRG ---
DATE OF SERVICE: 12/21/2017 Foot wound was evaluated with wound care dressing change today. The left foot wounds are healthy. C ellulitis is improved. The patient is stable and ready to go home. Interim home health will be [place] [facility] his home wound VAC. He is undergoing outpatient dialysis. He should see me in the office in 2-[address] Stearns currently is administering Ancef IV. His cultures have grown out staph. Patient's neuropathic ulcer, plantar foot extends to the cuboid bones and prognosis is not good for limb bakari ge. We will continue antibiotics per Dr. Stearns and I will see him in the office in 3 weeks to monito r his wounds. Interim home health will continue wound care VAC change. The patient is stable for [facility] from surgical standpoint.
[2017-12-21 17:56] VITALS: BP 128/64
--- NOTE | 2017-12-23 14:23 | DIS ---
DATE OF ADMISSION: 12/17/2017 DATE OF DISCHARGE: 12/21/2017 DISCHARGE DISPOSITION: Home. FOLLOWUP: 1. Follow up with primary care physician at [facility] in 1 week. 2. Follow up with Infectious Disease, Dr. Stearns in 2-3 weeks. 3. Follow up with General Surgery, Dr. Wood in 2 weeks. 4. Follow up with Nephrology, Dr. Dalal. DISCHARGE MEDICATIONS: 1. Ancef 3 grams after dialysis for a total of 2 weeks. 2. All other home medications were resumed. 3. Home wound VAC has been arranged. The patient was seen and examined on the day of discharge, denies any new complaints. BRIEF HOSPITAL COURSE: The patient is a 57-year-old male with end-stage renal disease on hemodialysi s, diabetes mellitus type 2, and hypertension who presented to the hospital with right heel pain of 3 days' duration. His workup was consistent with diabetic foot infection. The patient was seen by [facility] Surgery, Dr. Wood. He underwent debridement on 12/18/2017. A wound VAC has been arranged. He was also seen by Infectious Disease, Dr. Stearns. His wound culture showed MSSA. He will complete Ancef for a total of 14 days. He received hemodialysis per Nephrology. He has been cleared by consu ltants for discharge. FINAL DIAGNOSES: 1. Sepsis due to diabetic foot infection. 2. Diabetes mellitus type 2. 3. Hypertension. 4. End-stage renal disease on hemodialysis. 5. Obesity with a BMI 39.5. 6. Hyperlipidemia. 7. Secondary hyperparathyroidism. 8. History of cerebrovascular accident. 9. Dyslipidemia. 10. Anemia secondary to renal disease. 11. Elevated inflammatory markers. 12. Leukocytosis. His WBC on the day of admission was 17.6 and at discharge is 10.3. 13. Hyponatremia. Sodium on admission was 126, at discharge is 132. 14. Mild protein calorie malnutrition. Total time coordinating the discharge of this patient was 35 minutes. He was extensively counseled o n diabetes mellitus type 2.
== END 2017-12-21 19:16 | disposition home or self-care (01) | DRG 853 ==
LOC: ERS 22:48 → 2NO 12-17 04:01 → ONC 12-17 19:03
PROVIDERS: ADMIT Hospitalist; ATTEND Hospitalist
PROC: 0JBR0ZZ Excision of Left Foot Subcutaneous Tissue and Fascia, Open Approach (ICD-10-PCS; principal; 2017-12-18)
PROC: 0J9R3ZZ Drainage of Left Foot Subcutaneous Tissue and Fascia, Percutaneous Approach (ICD-10-PCS; 2017-12-18)
DX: A41.9 Sepsis, unspecified organism (principal); N18.6 End stage renal disease; I12.0 Hypertensive chronic kidney disease with stage 5 chronic kidney disease or end stage renal disease; E87.1 Hypo-osmolality and hyponatremia; E44.1 Mild protein-calorie malnutrition; I69.954 Hemiplegia and hemiparesis following unspecified cerebrovascular disease affecting left non-dominant side; M86.672 Other chronic osteomyelitis, left ankle and foot; L03.116 Cellulitis of left lower limb; L97.528 Non-pressure chronic ulcer of other part of left foot with other specified severity; E11.22 Type 2 diabetes mellitus with diabetic chronic kidney disease; Z99.2 Dependence on renal dialysis; E66.9 Obesity, unspecified; Z68.39 Body mass index [BMI] 39.0-39.9, adult; E78.5 Hyperlipidemia, unspecified; E21.3 Hyperparathyroidism, unspecified; B95.61 Methicillin susceptible Staphylococcus aureus infection as the cause of diseases classified elsewhere; D63.1 Anemia in chronic kidney disease; E11.69 Type 2 diabetes mellitus with other specified complication; E11.621 Type 2 diabetes mellitus with foot ulcer; E11.40 Type 2 diabetes mellitus with diabetic neuropathy, unspecified; E11.319 Type 2 diabetes mellitus with unspecified diabetic retinopathy without macular edema; Z90.49 Acquired absence of other specified parts of digestive tract; Z89.421 Acquired absence of other right toe(s); Z87.891 Personal history of nicotine dependence; Z79.82 Long term (current) use of aspirin; Z79.4 Long term (current) use of insulin; I73.9 Peripheral vascular disease, unspecified; E11.21 Type 2 diabetes mellitus with diabetic nephropathy; G40.909 Epilepsy, unspecified, not intractable, without status epilepticus
CPT/HCPCS: 10060; 36415; 36416; 80048; 80053; 80069; 80202; 83605; 85007; 85025; 85027; 85652; 86140; 87040; 87070; 87077; 87186; 87205; 90935; 96365; 96367; 96368; 96375; A4216; G0257; G8978-GP-CL; G8979-GP-CJ; J0360; J0690; J0692; J1644; J2001; J2185; J2270; J2405; J2704; J3010; J3370; J7050; Q0162; Q4081

== ENCOUNTER 2017-12-27 09:16 | Emergency (ER) | payer MEDICARE ==
--- NOTE | 2017-12-27 12:46 | RAD ---
RADIOGRAPH RIGHT FOOT THREE VIEWS: Date: 12-27-17 History: 57-year-old male with pain at right foot wound. Comparison: 12-16-17 FINDINGS: Multiple amputations: at the proximal metaphysis of first metatarsal, proximal metaphysis of second a nd fifth proximal phalanges, and at diaphyses of 3rd and 4th proximal phalanges. Severe DJD at 3rd MT P joint. Severe DJD at multiple tarsometatarsal joints, best demonstrated on the lateral view. No per iosteal elevation or destructive osseous lesion identified. Tiny, faint, short linear hyperdensities in the soft tissues at the plantar aspect of the foot. Irregularity of the plantar skin surface may r epresent ulceration. Diffuse soft tissue swelling of the foot. No interval change overall. IMPRESSION: 1. Status post multiple amputations of the forefoot. 2. Severe osteoarthrosis of multiple tarsometatarsal joints and 2nd metatarsophalangeal joint. 3. No interval change overall since 12-16-17. POS: [facility]
[2017-12-27 12:48] LABS: #Eosinphils 0.2 thou/uL (0.0-0.7); #Lymphocytes 1.4 thou/uL (1.20-3.40); #Monocytes 0.7 thou/uL (0.11-0.59); #Neutrophils 6.7 thou/uL (1.40-6.50); %Basophils 0.2 % (0.0-1.0); %Eosinophils 2.1 % (0.0-10.0); %Lymphocytes 15.2 % (21.0-51.0); %Monocytes 7.9 % (0.0-10.0); %Neutrophils 74.5 % (42.0-75.0); Hemoglobin 9.8 g/dL (14.0-18.0); Mean Corpuscular HGB CONC 33.8 g/dL (32.0-36.0); Mean Corpuscular Hemoglobin 31.2 pg (27.0-31.0); Mean Corpuscular Volume 92.4 fL (78.0-98.0); Mean Platelet Volume 6.2 fL (7.4-10.4); Platelet Count 319 thou/uL (130-400); RBC Distribution Width 13.3 % (11.5-14.5); Red Blood Cell (RBC) Count 3.13 mill/uL (4.70-6.10)
[2017-12-27 13:11] LABS: ALT (SGPT) Less than 7 U/L (8-55); AST (SGOT) 11 U/L (5-34); Albumin 3.2 g/dL (3.5-5.0); Alkaline Phosphatase 205 U/L (40-150); Anion Gap 15 mmol/L (10-20); BUN (Urea Nitrogen) 26 mg/dL (8.4-25.7); Bilirubin, Total 0.2 mg/dL (0.2-1.2); CRP (Inflammatory) 10.94 mg/dL (= or < 0.5); Calc. Creatinine Clearance 0 mL/min (70-130); Calcium 8.7 mg/dL (7.8-10.44); Carbon Dioxide 24 mmol/L (22-29); Chloride 96 mmol/L (98-107); Estimated GFR-MDRD 12; Globulin 5.7 g/dL (2.4-3.5); Glucose 312 mg/dL (70-105); Potassium 4.3 mmol/L (3.5-5.1); Protein, Total 8.9 g/dL (6.0-8.3); Sodium 131 mmol/L (136-145)
== END 2017-12-27 15:44 | disposition home or self-care (01) ==
LOC: ERS 09:16
DX: E11.621 Type 2 diabetes mellitus with foot ulcer (principal); L89.899 Pressure ulcer of other site, unspecified stage; E11.22 Type 2 diabetes mellitus with diabetic chronic kidney disease; I12.0 Hypertensive chronic kidney disease with stage 5 chronic kidney disease or end stage renal disease; N18.6 End stage renal disease; D64.9 Anemia, unspecified; Z79.4 Long term (current) use of insulin; Z79.899 Other long term (current) drug therapy
CPT/HCPCS: 36415; 80053; 85025; 86140

== ENCOUNTER 2018-01-09 07:48 | Emergency (ER) | payer MEDICARE ==
--- NOTE | 2018-01-09 08:37 | CT ---
CT BRAIN WITHOUT CONTRAST: HISTORY: Upper extremity weakness, headache. FINDINGS: Comparison is made with the exam of 07/26/17. FINDINGS: A large area of encephalomalacia in the left cerebellar hemisphere and changes of chronic small-vesse l ischemic change again seen. The ventricular size is appropriate and the basilar cisterns are paten t. No evidence of acute infarct, hemorrhage, midline shift, or abnormal extraaxial fluid collections seen. The bony calvarium is intact. The visualized paranasal sinuses and mastoid air cells are wel l aerated. IMPRESSION: No CT evidence of acute intracranial process. Discussed over the telephone with ER physician, Dr. Chan Schroeder, at 8:01 a.m. CODE KAI POS: [facility]
[2018-01-09 09:00] LABS: #Basophils 0.1 thou/uL (0.0-0.2); #Eosinphils 0.1 thou/uL (0.0-0.7); #Lymphocytes 1.8 thou/uL (1.20-3.40); #Monocytes 0.6 thou/uL (0.11-0.59); #Neutrophils 4.9 thou/uL (1.40-6.50); %Basophils 0.8 % (0.0-1.0); %Eosinophils 1.7 % (0.0-10.0); %Lymphocytes 24.2 % (21.0-51.0); %Monocytes 7.6 % (0.0-10.0); %Neutrophils 65.7 % (42.0-75.0); Hemoglobin 9.5 g/dL (14.0-18.0); Mean Corpuscular HGB CONC 32.4 g/dL (32.0-36.0); Mean Corpuscular Hemoglobin 30.6 pg (27.0-31.0); Mean Corpuscular Volume 94.5 fL (78.0-98.0); Mean Platelet Volume 6.9 fL (7.4-10.4); Platelet Count 212 thou/uL (130-400); White Blood Cell (WBC) Count 7.4 thou/uL (4.8-10.8)
[2018-01-09 09:12] LABS: ALT (SGPT) Less than 7 U/L (8-55); AST (SGOT) 12 U/L (5-34); Albumin 3.2 g/dL (3.5-5.0); Alkaline Phosphatase 135 U/L (40-150); Anion Gap 18 mmol/L (10-20); BUN (Urea Nitrogen) 34 mg/dL (8.4-25.7); Bilirubin, Total 0.5 mg/dL (0.2-1.2); CK (CPK) 43 U/L (30-200); Calc. Creatinine Clearance 0 mL/min (70-130); Calcium 8.3 mg/dL (7.8-10.44); Carbon Dioxide 24 mmol/L (22-29); Chloride 97 mmol/L (98-107); Estimated GFR-MDRD 9; Globulin 4.7 g/dL (2.4-3.5); Glucose 81 mg/dL (70-105); Lipase 12 U/L (8-78); Magnesium 2.1 mg/dL (1.6-2.6); Phosphorus 5.2 mg/dL (2.3-4.7); Potassium 4.8 mmol/L (3.5-5.1); Protein, Total 7.9 g/dL (6.0-8.3); Sodium 134 mmol/L (136-145)
[2018-01-09 09:14] LABS: Troponin I Less than 0.010 ng/mL (< 0.028)
== END 2018-01-09 11:18 | disposition home or self-care (01) ==
LOC: ERS 07:48
DX: R53.1 Weakness (principal); E11.9 Type 2 diabetes mellitus without complications; I12.0 Hypertensive chronic kidney disease with stage 5 chronic kidney disease or end stage renal disease; N18.6 End stage renal disease; Z99.2 Dependence on renal dialysis; Z79.899 Other long term (current) drug therapy; Z79.4 Long term (current) use of insulin
CPT/HCPCS: 36415; 36416; 70450; 80053; 82553; 83690; 83735; 84100; 84484; 85025; 93005

== ENCOUNTER 2018-01-10 10:03 | Emergency (ER) | payer MEDICARE ==
[2018-01-10 10:44] LABS: #Eosinphils 0.1 thou/uL (0.0-0.7); #Lymphocytes 1.2 thou/uL (1.20-3.40); #Monocytes 0.6 thou/uL (0.11-0.59); %Basophils 0.2 % (0.0-1.0); %Eosinophils 0.7 % (0.0-10.0); %Lymphocytes 13.6 % (21.0-51.0); %Monocytes 6.4 % (0.0-10.0); %Neutrophils 79.2 % (42.0-75.0); Hemoglobin 9.7 g/dL (14.0-18.0); Mean Corpuscular HGB CONC 32.3 g/dL (32.0-36.0); Mean Corpuscular Hemoglobin 30.4 pg (27.0-31.0); Mean Corpuscular Volume 94.1 fL (78.0-98.0); Mean Platelet Volume 6.8 fL (7.4-10.4); Platelet Count 207 thou/uL (130-400); RBC Distribution Width 16.1 % (11.5-14.5); Red Blood Cell (RBC) Count 3.18 mill/uL (4.70-6.10); White Blood Cell (WBC) Count 8.8 thou/uL (4.8-10.8)
[2018-01-10 11:09] LABS: ALT (SGPT) Less than 7 U/L (8-55); AST (SGOT) 14 U/L (5-34); Albumin 3.4 g/dL (3.5-5.0); Alkaline Phosphatase 145 U/L (40-150); Anion Gap 20 mmol/L (10-20); BUN (Urea Nitrogen) 46 mg/dL (8.4-25.7); Bilirubin, Total 0.6 mg/dL (0.2-1.2); Calc. Creatinine Clearance 0 mL/min (70-130); Calcium 8.2 mg/dL (7.8-10.44); Carbon Dioxide 21 mmol/L (22-29); Chloride 98 mmol/L (98-107); Estimated GFR-MDRD 7; Globulin 4.9 g/dL (2.4-3.5); Glucose 76 mg/dL (70-105); Magnesium 2.3 mg/dL (1.6-2.6); Phosphorus 7.2 mg/dL (2.3-4.7); Potassium 5.2 mmol/L (3.5-5.1); Protein, Total 8.3 g/dL (6.0-8.3); Sodium 134 mmol/L (136-145)
== END 2018-01-10 12:12 | disposition home or self-care (01) ==
LOC: ERS 10:03
DX: R25.3 Fasciculation (principal); E11.9 Type 2 diabetes mellitus without complications; I12.0 Hypertensive chronic kidney disease with stage 5 chronic kidney disease or end stage renal disease; N18.6 End stage renal disease; Z86.73 Personal history of transient ischemic attack (TIA), and cerebral infarction without residual deficits; Z79.4 Long term (current) use of insulin; Z79.899 Other long term (current) drug therapy
CPT/HCPCS: 36415; 80053; 83735; 84100; 85025; 99284

== ENCOUNTER 2018-01-24 21:21 | Inpatient (IN) | payer MEDICARE ==
[2018-01-24 22:04] LABS: #Eosinphils 0.2 thou/uL (0.0-0.7); #Lymphocytes 2.3 thou/uL (1.20-3.40); #Monocytes 0.8 thou/uL (0.11-0.59); #Neutrophils 7.7 thou/uL (1.40-6.50); %Basophils 0.2 % (0.0-1.0); %Eosinophils 1.7 % (0.0-10.0); %Lymphocytes 20.6 % (21.0-51.0); %Monocytes 7.4 % (0.0-10.0); %Neutrophils 70.2 % (42.0-75.0); Hemoglobin 10.2 g/dL (14.0-18.0); Mean Corpuscular HGB CONC 31.1 g/dL (32.0-36.0); Mean Corpuscular Hemoglobin 28.9 pg (27.0-31.0); Mean Platelet Volume 7.2 fL (7.4-10.4); Platelet Count 209 thou/uL (130-400); RBC Distribution Width 15.3 % (11.5-14.5); Red Blood Cell (RBC) Count 3.52 mill/uL (4.70-6.10)
[2018-01-24 22:26] LABS: ALT (SGPT) 8 U/L (8-55); AST (SGOT) 16 U/L (5-34); Albumin 3.9 g/dL (3.5-5.0); Alkaline Phosphatase 171 U/L (40-150); Anion Gap 16 mmol/L (10-20); BUN (Urea Nitrogen) 42 mg/dL (8.4-25.7); Bilirubin, Total 0.5 mg/dL (0.2-1.2); Calc. Creatinine Clearance 0 mL/min (70-130); Calcium 8.9 mg/dL (7.8-10.44); Carbon Dioxide 26 mmol/L (22-29); Chloride 97 mmol/L (98-107); Estimated GFR-MDRD 9; Globulin 5.1 g/dL (2.4-3.5); Glucose 226 mg/dL (70-105); Potassium 4.4 mmol/L (3.5-5.1); Sodium 135 mmol/L (136-145)
[2018-01-24] MEDS ORDERED: Ondansetron HCl/PF 4 MG/2 ML Vial ONE (23:43)
[2018-01-24] MEDS ORDERED: Morphine 4 MG/ML VIAL ONE (23:43)
--- NOTE | 2018-01-24 23:59 | RAD ---
RADIOGRAPH RIGHT FOOT 3 VIEWS: 01/24/18 at 11:23 p.m. HISTORY: 57-year-old male diabetic with right foot swelling, pain, and heel ulcer with drainage. COMPARISON: 12/27/17. FINDINGS: There is a new finding of a moderate sized lucency involving the calcaneus. On the oblique view, this has irregular, somewhat ill-defined margins with a permeative appearance, and involvement of the lat eral cortical surface. Inferior to that, there is a focal lucency in the soft tissues consistent with the ulcer stated in th e history. Anterior to that, at the plantar aspect of the midfoot, there is another soft tissue surface lucency, questionable for another ulcer. There is diffuse soft tissue edema of the foot, somewhat worse than on the previous study. Again note d are the old amputations at proximal aspect of the first metatarsal, and proximal aspects of the sec ond, third, fourth and fifth proximal phalanges. Again noted is the chronic distortion of the third M TP joint with associated moderate to severe degenerative changes. There are also moderate degenerativ e changes of fourth MTP. Severe hypertrophic degenerative changes of multiple joints of the midfoot a re suggested on the lateral view, with fragmentation. This is unchanged since the prior study. IMPRESSION: 1. New, permeative osteolytic lesion is evidence of osteomyelitis of the calcaneus. 2. Soft tissue ulcerations. 3. Diffuse, somewhat severe soft tissue edema. 4. Old amputations of all toes. 5. Multijoint high grade osteoarthrosis. POS: [facility]
[2018-01-25] MEDS ORDERED: Piperacillin/Tazobactam 2.25 GM in Sodium Chloride 0.9% 100 ML IVPB SCH (02:15)
[2018-01-25] MEDS ORDERED: Vancomycin HCl 1.5 GM in Sodium Chloride 0.9% 250 ML 300 ML IVPB SCH ×2 (02:15→04:15)
[2018-01-25] MEDS ORDERED: Piperacillin/Tazobactam 2.25 GM VIAL ONE (02:20)
[2018-01-25] MEDS ORDERED: EPINEPHrine 1 MG/ML AMP ONE (02:40)
[2018-01-25] MEDS ORDERED: Morphine 2 MG/ML SYRINGE ONE (03:47)
[2018-01-25 03:48] LABS: CKMB 0.9 ng/mL (0-6.6); Troponin I 0.015 ng/mL (< 0.028)
[2018-01-25] MEDS ORDERED: Acetaminophen 325 MG TAB PO PRN (04:00)
[2018-01-25] MEDS ORDERED: Dextrose 5% in Water 1,000 ML IV PRN (04:00)
[2018-01-25] MEDS ORDERED: Dextrose 50% Abboject 50 ML SYRINGE SLOW IVP PRN (04:00)
[2018-01-25] MEDS ORDERED: Vancomycin HCl 1.25 GM in Sodium Chloride 0.9% 250 ML 250 ML IVPB SCH (04:15)
[2018-01-25] MEDS ORDERED: Vancomycin HCl 750 MG in Sodium Chloride 0.9% 250 ML 250 ML IVPB SCH (04:15)
[2018-01-25] MEDS ORDERED: Vancomycin HCl 1 GM in Premix Bag 1 BAG IVPB SCH (04:15)
[2018-01-25] MEDS ORDERED: HOLD VANCOMYCIN FOR LEVEL >20 FS SCH (04:15)
[2018-01-25] MEDS ORDERED: Vancomycin Sliding Scale 1 EACH FS ONE (04:15)
[2018-01-25] MEDS ORDERED: Aztreonam 1 GM in Sodium Chloride 0.9% 100 ML IVPB SCH (06:45)
[2018-01-25 07:43] LABS: Lactic Acid 2.2 mmol/L (0.5-2.2)
--- NOTE | 2018-01-25 08:02 | ULT ---
PRELIMINARY REPORT/[facility]/EMERGENTY AFTER-HOURS PROCEDURE US Duplex Bilateral Lower Extremity Veins CLINICAL HISTORY: 57 years old, male; Pain and signs and symptoms; Edema, localized; Lower extremity, bilateral; Leg, l ower; Right; Prior surgery; Surgery date: <1 month; Surgery type: M57 presents to ed with C/O r foot pain from diabetic ulcer on heel; Patient HX: Tonight, the pt's foot started getting hot and swollen. Pt also reports fever and chills. TECHNIQUE: Real-time duplex ultrasound scan of the bilateral lower extremity veins integrating B-mode two dimens ional vascular structure, Doppler spectral analysis, color flow Doppler imaging and compression. COMPARISON: No relevant prior studies available. FINDINGS: Right deep veins: Unremarkable. No DVT in the right common femoral, femoral, proximal deep femoral or popliteal veins. The veins demonstrate normal color flow, are normally compressible, with normal pha sic flow and/or augmentation response. Right superficial veins: Unremarkable. No thrombus in the visualized right great saphenous vein. Left deep veins: Unremarkable. No DVT in the left common femoral, femoral, proximal deep femoral or p opliteal veins. The veins demonstrate normal color flow, are normally compressible, with normal phasi c flow and/or augmentation response. Left superficial veins: Unremarkable. No thrombus in the visualized left great saphenous vein. Soft tissues: Minimal subcutaneous edema. 2 cm reactive lymph node in the right inguinal region. IMPRESSION: Normal bilateral lower extremity duplex venous ultrasound. Thank you for allowing us to participate in the care of your patient. Dictated and Authenticated by: Shaq Mohamud MD 01/25/2018 5:56 AM Central Time ([place] & [place]) FINAL REPORT BILATERAL LOWER EXTREMITY VENOUS DOPPLER ULTRSOUND: I agree with the preliminary report given by Dr. Shaq Mohamud of [employer]. POS: [facility]
[2018-01-25 09:24] VITALS: BMI 40.1
[2018-01-25] MEDS: Heparin 5,000 UNITS/ML VIAL SC SCH ×3 (10:13→20:37)
--- NOTE | 2018-01-25 10:18 | PRG ---
DATE OF SERVICE: 01/25/2018 SUBJECTIVE: Mr. Hernandez was initially admitted for right foot infection. He was started on IV antib iotics for presumed osteomyelitis. Please note he has right foot ulceration. During the initial man agement, he was given IV Zosyn and he was said to have developed anaphylactic reaction. This was dis continued. We are now being consulted for his maintenance hemodialysis. He is undergoing dialysis. I am at the bedside supervising his dialysis. The patient tells me he is feeling better. He denies any chest pain or shortness of breath. PHYSICAL EXAMINATION: VITAL SIGNS: Blood pressure is noted at 119/55, heart rate 68, pulse ox 100%. GENERAL: Awake, alert, comfortable, not in distress. SKIN: Adequate turgor. HEENT: Pinkish conjunctivae, anicteric sclera. NECK: No neck mass, no carotid bruits. No JVD. CHEST: No deformities. LUNGS: Clear breath sounds, no wheezing, no crackles. HEART: Normal sinus rhythm. No murmur, no gallops or rubs. ABDOMEN: Globular, soft, nontender, no masses. EXTREMITIES: No edema, possible right foot ulceration. MEDICATIONS: Of 01/25/2018 was reviewed. LABORATORY DATA: Of 01/24/2018: White count was noted to be at 11 with a hemoglobin 10.2. On 01/24: Sodium 135, potassium 4.4, chloride 97, carbon dioxide 26, BUN 42, creatinine 6.24, glucose 2 26, calcium 8.9, AST 16, ALT is 8, albumin 3.9. ASSESSMENT AND PLAN: 1. End-stage renal disease -- stable. Tolerating current hemodialysis regimen. We will continue cu rrent dialysis regimen of Sunday, Sunday, Sunday. Again, fluid removal only as tolerated. 2. Borderline anemia. Continue to observe. 3. Right foot ulceration/osteomyelitis, currently on IV vancomycin. Consider ID consult.
--- NOTE | 2018-01-25 10:39 | HP ---
PRIMARY CARE PHYSICIAN: Dr. Alston. CODE STATUS: FULL CODE. TIME OF EVALUATION: 04:00 a.m. CHIEF COMPLAINT: Pain in the right foot. HISTORY OF PRESENT ILLNESS: This 57-year-old male patient, who morbidly obese with a past medical hi story of diabetes; chronic right foot nonhealing wound; history of stroke, end-stage renal disease, o n hemodialysis Sunday, Sunday, and Sunday. The patient came to the hospital after having severe r ight foot pain, the patient had been receiving chronic treatment for the nonhealing ulcer on the righ t foot, he got right foot wound VAC removed yesterday. After that, the patient developed severe pain , that was the reason why he came to the hospital. No alleviating factors. The patient was started on antibiotics, vancomycin and Zosyn. After receiving Zosyn, the patient developed what looks like a n anaphylactic reaction with hypotension, tachycardia, severe shortness of breath, improve with epine phrine IM, patient is more stable now. We will place the patient in IMCU given allergic reaction, co ntinue antibiotics, we will consult Dr. Stearns for recommendation and assistance with antibiotic manag ement. REVIEW OF SYSTEMS: Constitutional: The patient has no fever. He reported chills, generalized weakn ess. Respiratory: No cough, sputum production or shortness of breath. Cardiovascular: No chest pa in or palpitations. Gastrointestinal: No nausea, no vomiting, diarrhea or abdominal pain. 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 Genitourinary: No burning on urination. Extremities: The patient has right leg pain, leg bilateral swelling, right toes amputation. All other systems re viewed were negative except for the findings mentioned above. PAST MEDICAL HISTORY: Mentioned in the HPI. PAST SURGICAL HISTORY: Right toes amputation, dialysis shunt in the left upper arm, wound VAC on bot juan luis of the foot after surgery on 12/2017. PSYCHIATRIC HISTORY: No previous psychiatric history. SOCIAL HISTORY: No alcohol, no drugs, no smoking history. FAMILY HISTORY: Reviewed and noncontributory for current presentation. ALLERGIES: ZOSYN. Today the patient developed severe anaphylactic reaction. REPORTED MEDICATIONS: Clonidine, vitamin D3, lisinopril, atorvastatin, hydralazine, Humalog, Renvela , trazodone, tramadol, acetaminophen, clonazepam. PHYSICAL EXAMINATION: VITAL SIGNS: On presentation, blood pressure 162/100 with heart rates in 86, respiratory rate was 18 , temperature 101.3, pain 10/10 in the right foot, oxygen saturation 95% on room air. GENERAL APPEARANCE: The patient is alert, oriented, in distress due to pain and sepsis symptoms. HEENT: Eyes, normal conjunctivae. Dry oral mucosa. Anicteric. NECK: No JVD. RESPIRATORY: Bilateral air entry. No rales, no wheezes. Symmetric expansion. CARDIOVASCULAR: Normal rate, regular rhythm. No murmurs, no gallop. Bilateral leg edema. ABDOMEN: Soft, normal bowel sounds. MUSCULOSKELETAL: Baseline range of motion and strength except for the right foot. The patient has s ignificant tenderness, unable to bear weight. SKIN: Warm, intact. No pallor, no rash, no redness. Peripheral pulses are present. Capillary refi ll seems to be intact. NEUROLOGIC: Baseline sensory. No evidence of any new focal weakness. The patient has a history of diabetic neuropathy and previous stroke with sequela of gait disturbance. PSYCHIATRIC: The patient is in good mood, no anxiety, oriented, optimal judgment. IMAGING: Foot x-ray was reviewed. The patient has new permeative osteolytic lesion, is evidence of osteomyelitis in the calcaneus area, superficial ulceration diffuse somewhat, severe soft tissue dawson a, old amputations of all toes, multijoint high grade osteoarthrosis. LABORATORY DATA: Labs were reviewed. White count 11, hemoglobin 10.2, MCV 93, platelet count 209. Chemistry: Sodium 135, potassium 4.4, chloride 97, carbon dioxide 36, anion gap 16, BUN 42, creatini ne 6.4, GFR 9, glucose 226, lactic acid 1.3, calcium 9.9, total bilirubin 0.5, AST 16, ALT 8, alkalin e phosphatase 171. Troponin was negative. Serum total protein was 9, albumin 3.9, globulin is 5.1, albumin globulin ratio is 0.8. ASSESSMENT AND PLAN: The patient will be placed in the hospital with the following medical problems: 1. Acute on chronic osteomyelitis in the right foot. The patient will be placed on broad-spectrum a ntibiotics. He developed severe anaphylactic reaction to Zosyn. We will keep on Levaquin and vancom ycin. We will consult Dr. Ellsworth for assisting with antibiotics management and duration. 2. End-stage renal disease, on hemodialysis. Hemodialysis will be started on Sunday, Sunday, Sun. We will need Nephrology consultation 3. Sepsis. The patient has fever, tachycardia. The patient has had multiple episodes of hypotensio n as reported by RN few minutes ago, we will give some more fluid, but we are limited since the patie nt is a hemodialysis patient, he is due for hemodialysis today, his lung sounds clear and the saturat ion is 100. I think we can give a little bit more fluids and watch for his response. He feels extre huang tired, blood pressure has been in the 80s. We will place him in the intensive care unit, might need to start vasopressors any time soon. 4. Hyponatremia, sodium 135. This is minimal, no need for any acute intervention at this point. We will monitor, we will treat accordingly. 5. Uncontrolled diabetes. Blood sugar 226, we will place the patient on sliding scale. 6. Chronic normocytic anemia, hemoglobin is around 10, the same values that we have on review old re cords, no need for any acute intervention, likely secondary to chronic kidney disease. We will treat as per Nephrology recommendations. 7. Deep venous thrombosis prophylaxis, rule out deep venous thrombosis given chronic nataliia ateral lower extremities.
--- NOTE | 2018-01-25 12:50 | CON ---
DATE OF CONSULTATION: 01/25/2018 HISTORY OF PRESENT ILLNESS: Rene Hernandez is a 57-year-old male patient who I saw in my office yest sami regarding diabetic foot ulcerations. He had a healing wound on his medial proximal arch area r ight foot and a plantar neuropathic ulceration, both of which were granulating and looked good. The wound VAC was discontinued and a non-wound VAC dressings suggested such as Silver or saline wet to dr damon dressingsimba. The patient, however, later that night began developing increased pain in his right jarred l area with some perceived redness and presented to the emergency room and foot x-ray revealed change s suggestive of osteomyelitis calcaneus. I was asked to see him. At the bedside I reevaluated his f oot. He had the wound as described. There is no evidence of purulence, abscess or sinus tract to co mmunicate with this osteolytic lesion in the calcaneus. Surgically, I do not think there is anything I can offer as far as drainage and I would hope that Dr. Stearns would be able to treat this with intr avenous antibiotics to resolve this. If something does develop in the future. I will be glad to see him for reevaluation. ALLERGIES: PENICILLIN. TOBACCO: None. ALCOHOL: None. MEDICATIONS: Hydralazine, clonidine, sevelamer, isosorbide, insulin, Lantus insulin, Prozac, atorvas tatin, aspirin, amlodipine, Humalog insulin. PAST SURGICAL HISTORY: Fistula left upper arm, cholecystectomy, tonsillectomy, partial toe amputatio n both feet, chronic ulcerations right foot, palpable pedal pulses. No evidence of peripheral arteri al disease. PAST MEDICAL HISTORY: Insulin-dependent diabetes mellitus, end-stage renal disease on maintenance di alysis, chronic foot wounds, prior amputations of toes, feet. PHYSICAL EXAMINATION: VITAL SIGNS: Height 5 foot 7, 256 pounds, 40 BMI, 96.9, 69, 112/57. HEENT: Unremarkable. LUNGS: Clear to auscultation. CARDIAC: Regular rate and rhythm without murmur or gallop. ABDOMEN: Soft, nontender. EXTREMITIES: Palpable pedal pulses, right foot wound as described. Previous amputations of toes and metatarsals as described. Healing granulating wounds right foot as described. ASSESSMENT AND PLAN: Osteomyelitis, right calcaneus. No surgical intervention indicated at this zainab e, hopefully can treat this new osteolytic lesion, right calcaneus with intravenous antibiotics. Dr. Stearns consult pending. Most likely he could be treated with intravenous antibiotics as an outpatien t. If he does need a Red catheter for a different antibiotic regimen I would be available to verónica hare that next week. He should not have PICC lines or midlines even though he has a functioning fistul a. The contralateral arm should be reserved for future dialysis access should his current dialysis a ccess fail.
[2018-01-25] MEDS ORDERED: metroNIDAZOLE 500 MG TAB PO SCH (16:30)
[2018-01-25] MEDS: metroNIDAZOLE 500 MG TAB PO SCH (20:36)
[2018-01-25] MEDS: HumaLOG 300 UNITS/3 ML VIAL SC PRN (20:39)
[2018-01-25] MEDS: Morphine 2 MG/ML SYRINGE SLOW IVP PRN (20:46)
--- NOTE | 2018-01-25 21:38 | CON ---
DATE OF CONSULTATION: 01/25/2018 REASON FOR CONSULTATION: Right foot inflammatory process recrudescence. HISTORY OF PRESENT ILLNESS: Mr. Hernandez is a 57-year-old gentleman with a history of type 2 diabetes, end-stage renal disease on hemodialysis through an AV fistula, and multiple complications in the feet, more recent ones in the right foot. Initially in 09/2017, he presented with infection which appeared limited to the soft tissues with no bone involvement. He was treated conservatively. In 12/17/2017, he presented with recrudescence of pain and swelling of the right foot and he had a surgical debridement and IV antimicrobial therapy. Methicillin-sensitive Staphylococcus aureus was identified and the patient was discharged on IV cefazolin given after each dialysis and he is supposed to be transferred to oral [facility] after that. He has been readmitted with worsening right foot pain. The pain is actually localized to the back of the right ankle, although he has mild pain at the heel area. Apparently, the wound VAC was removed the day before, the pain developed after that, he came to the hospital because of this development. Had some chills and fever. When he received either vancomycin or Zosyn, he developed hypotension, tachycardia, and severe shortness of breath, which improved with epinephrine. Currently, he was transferred to the floor. He is feeling better. No change in visual symptoms, which are chronic. No sore throat, odynophagia, dysphagia, no dyspnea or chest pain except for mild soreness. No back pain, no abdominal pain or diarrhea. No genitourinary symptoms. There is tenderness on palpation of the right ankle and a little bit of tenderness at the back of the right heel. There is a triangular shaped wound in the medial aspect of the right hindfoot with fresh appearing base, no drainage. PAST SURGICAL HISTORY: Multiple amputations of toes, dialysis fistula placement. SOCIAL HISTORY: Never a smoker. Lives with family. FAMILY HISTORY: Type 2 diabetes. ALLERGIES: ZOSYN what appears to be a severe anaphylactic reaction after administration. It is not clear what type of reaction truly he has and this association may be spurious. CURRENT MEDICATIONS: Tylenol, dextrose, glucagon, heparin, Humalog insulin, morphine, vancomycin, sliding scale. PHYSICAL EXAMINATION: VITAL SIGNS: Temperature max 98.2, blood pressure 120/40, pulse 72, respirations 17-21, O2 sat 98%. GENERAL: Appears in no distress. SKIN: Shows the right foot with the medial triangular shaped wound with fresh healthy looking base. There is no erythema. There is mild tenderness in the back of the heel area. Left upper extremity AV fistula access appears well. No lymphadenopathy. HEENT: Ocular movements showed somewhat disconjugate movements. Pupils are reactive. Oral cavity normal. NECK: Supple. LUNGS: With symmetric clear breath sounds. HEART: S1, S2 with a soft aortic murmur. Regular rate. ABDOMEN: Soft, not distended or tender. No ascites. EXTREMITIES: Pulses are 1+ in dorsalis pedis. He is able to move extremities equally. NEUROLOGIC: His cognitive function appears to be stable. LABORATORY DATA: White cell count 11,000, hemoglobin 10.2, platelets 209, 70% neutrophils. Sodium 135, creatinine 6.24. Liver profile normal, alkaline phosphatase 171, albumin 3.9. Microbiology with 2 sets of blood cultures thus far no growth. Previous foot cultures with 3 different samples in 2 separate days with methicillin-sensitive Staphylococcus aureus. ASSESSMENT: Type 2 diabetes, neuropathy and complications in the feet with the latest ones in the left side which have required partial amputations and surgical debridements. Now, the right foot is the culprit here of the recent admissions and this one. The radiological findings noted this time from 2017 include osteolytic lesion in the calcaneus prior amputation. At this point , we will continue vancomycin, sliding scale given at dialysis for probably 8 weeks total. The Staphylococcus aureus is likely the culprit here for the recrudescence of inflammatory process. The strain is MSSA but pt had serious reaction, presumably to Zosyn, so will cont treatment with Vancomycin. Could add ciprofloxacin and Flagyl for the first 4 weeks since there is a small but significant chance of superinfection by gram negatives and anaerobes in view of the open wound the patient had at the site. JACQUELINED
[2018-01-26 05:09] LABS: #Eosinphils 0.2 thou/uL (0.0-0.7); #Lymphocytes 2.5 thou/uL (1.20-3.40); #Monocytes 0.8 thou/uL (0.11-0.59); #Neutrophils 5.7 thou/uL (1.40-6.50); %Basophils 0.2 % (0.0-1.0); %Eosinophils 1.8 % (0.0-10.0); %Lymphocytes 27.2 % (21.0-51.0); %Monocytes 8.9 % (0.0-10.0); %Neutrophils 61.9 % (42.0-75.0); Mean Corpuscular HGB CONC 30.8 g/dL (32.0-36.0); Mean Corpuscular Hemoglobin 28.8 pg (27.0-31.0); Mean Corpuscular Volume 93.5 fL (78.0-98.0); Mean Platelet Volume 7.3 fL (7.4-10.4); Platelet Count 162 thou/uL (130-400); RBC Distribution Width 15.1 % (11.5-14.5); Red Blood Cell (RBC) Count 3.12 mill/uL (4.70-6.10); White Blood Cell (WBC) Count 9.2 thou/uL (4.8-10.8)
[2018-01-26 05:29] LABS: Anion Gap 11 mmol/L (10-20); BUN (Urea Nitrogen) 31 mg/dL (8.4-25.7); Calc. Creatinine Clearance 28 mL/min (70-130); Calcium 8.2 mg/dL (7.8-10.44); Carbon Dioxide 29 mmol/L (22-29); Chloride 97 mmol/L (98-107); Estimated GFR-MDRD 13; Glucose 157 mg/dL (70-105); Potassium 4.4 mmol/L (3.5-5.1); Sodium 133 mmol/L (136-145)
[2018-01-26] MEDS: HumaLOG 300 UNITS/3 ML VIAL SC PRN ×3 (05:38→20:39)
[2018-01-26] MEDS: metroNIDAZOLE 500 MG TAB PO SCH ×3 (08:00→20:24)
[2018-01-26] MEDS: Morphine 2 MG/ML SYRINGE SLOW IVP PRN ×3 (08:00→21:37)
[2018-01-26] MEDS: Ciprofloxacin 500 MG TAB PO SCH (08:00)
[2018-01-26] MEDS: Heparin 5,000 UNITS/ML VIAL SC SCH ×3 (08:00→20:24)
[2018-01-26] MEDS ORDERED: Epoetin (ESRD) 20,000 UNITS/ML SC SCH (09:45)
--- NOTE | 2018-01-26 10:31 | PRG ---
DATE OF SERVICE: 01/26/2018 SUBJECTIVE: Mr. Hernandez is a 57-year-old white male with ESRD followed by the [facility] for his maintenance hemodialysis. He underwent hemodialysis yesterday without any difficulty. In addition, the patient was admitted for right foot infection. He has an ulceration noted on the right foot. He also developed an anaphylactic shock? with IV antibiotics. He is currently now converted to IV vanc omycin. Infectious Disease has been consulted and recommendation is for him to have Cipro and Flagyl for 4 weeks. No other complaints today. He is feeling better. The only complaint he has is chest pain secondary to the trauma from his cardiac compression yesterday. Denies any shortness of breath. OBJECTIVE: VITAL SIGNS: Blood pressure 146/69, heart rate 80, respiratory rate 18, temperature 99.8, pulse ox 9 6%. GENERAL: Awake, alert, comfortable, not in distress. SKIN: Adequate turgor. HEENT: He has pinkish conjunctivae, anicteric sclerae. NECK: No neck mass, no carotid bruits, no JVD. CHEST: No deformities. LUNGS: Clear breath sounds. HEART: Normal sinus rhythm. No murmurs, no gallops, no rubs. ABDOMEN: Globular, soft, nontender, no masses. EXTREMITIES: No edema, no deformities. Positive for right foot ulceration. MEDICATIONS: Medications of 01/26/2018 was reviewed. LABORATORY DATA: Laboratories of 01/26/2018; white count 9.2, hemoglobin 9, sodium 133, potassium 4. 4, chloride 97, carbon dioxide 29, BUN 31, creatinine 4.74, glucose 157, calcium 8.2, C-reactive prot ein 18.2. IMAGING DATA: On 01/24/2018, x-ray of the right foot shows a new osteolytic lesion of the right calc aneus. ASSESSMENT AND PLAN: 1. End-stage renal disease, stable. Continue current Sunday, Sunday and Sunday hemodialysis. To lerating said treatment. Fluid removal only as tolerated. 2. Anemia. We will resume Epogen 7,500 units subcutaneously every week. 3. Right foot infection/osteomyelitis, currently on Cipro, Flagyl, and vancomycin. Infectious Disea se following.
--- NOTE | 2018-01-26 22:50 | PDOC.PN ---
- Subjective Encounter Start Date: 01/26/18 Encounter Start Time: 11:00 Patient seen and examined for diabetic foot infection. No new complaints. Pain controlled. No fever/chills/N/V. No overnight events - Objective Resuscitation Status: Resuscitation Status FULL:Full Resuscitation MAR Reviewed: Yes Vital Signs & Weight: Vital Signs (12 hours) Temp Pulse Resp BP Pulse Ox 01/26/18 20:26 98.5 F 76 18 106/67 92 L Weight Admit Weight 256 lb 3.2 oz Weight 256 lb 3.2 oz I&O: 01/25/18 01/26/18 01/27/18 06:59 06:59 06:59 Intake Total 520 Balance 520 Result Diagrams: 01/26/18 04:36 01/26/18 04:36 Additional Labs: Accuchecks 01/26/18 01/26/18 01/26/18 20:29 16:26 10:46 POC Glucose 202 H 256 H 141 H 01/26/18 05:18 POC Glucose 160 H Radiology Reviewed by me: Yes (Foot XR - ?Osteomyelitis, Doppler - Neg) Phys Exam - Physical Examination Constitutional: NAD Respiratory: no wheezing, no rales, no rhonchi, clear to auscultation bilateral Cardiovascular: RRR, no rub No heaves/pulsations Gastrointestinal: soft, non-tender, no distention, positive bowel sounds Musculoskeletal: no edema RLE dressing + Neurological: non-focal, normal sensation, moves all 4 limbs Psychiatric: A&O x 3 Dx/Plan - Plan continue antibiotics, DVT proph w/heparin, DVT proph w/SCDs IMPRESSION: 1. Sepsis due to diabetic foot infection 2. DM2 3. HTN - BP on lower side 4. Anaphylactic reaction to PCN 4. ESRD on dialysis / Obesity BMI 39.5 / HLD 5. Other issues per previous notes PLAN: Cont current Atbx Cont wound longterm anti HTN meds on hold due to BP on lower side - Will resume Clonidine and Amlodidpine in AM Resume Lantus at low dose Cont Sliding scale Dialysis per Nephro Cont current meds as below Microbiology 01/24/18 21:53 Venous blood - Right Hand Blood Culture - Preliminary NO GROWTH AT 48 HOURS 01/24/18 21:47 Venous blood - Right Arm Blood Culture - Preliminary NO GROWTH AT 48 HOURS Laboratory Tests 01/26/18 01/26/18 04:36 04:36 ESR Westergren 83 C-Reactive Protein 18.28 H Review of Systems - Review of Systems Respiratory: negative: Cough, Dry, Shortness of Breath, Hemoptysis, SOB with Excertion, Pleuritic Pain, Sputum, Wheezing Cardiovascular: negative: chest pain, palpitations, orthopnea, paroxysmal nocturnal dyspnea, edema, light headedness, other Gastrointestinal: negative: Nausea, Vomiting, Abdominal Pain, Diarrhea, Constipation, Melena, Hematochezia, Other - Medications/Allergies Allergies/Adverse Reactions: Allergies Allergy/AdvReac Type Severity Reaction Status Date / Time Penicillins Allergy Severe Anaphylaxis Verified 01/25/18 09:30 Medications: Current Medications Acetaminophen (Tylenol) 650 mg PO Q4H PRN PRN Reason: Headache/Fever or Pain Last Admin: 01/25/18 16:02 Dose: 650 mg Ciprofloxacin (Cipro) 500 mg PO DAILY [facility] Last Admin: 01/26/18 08:00 Dose: 500 mg Dextrose/Water (Dextrose 50%) 25 gm SLOW IVP PRN PRN PRN Reason: Hypoglycemia Epoetin Luciano (Procrit) 7,500 units SC Q7D [facility] Last Admin: 01/26/18 13:47 Dose: 7,500 units Glucagon (Glucagon) 1 mg IM PRN PRN PRN Reason: Hypoglycemia Heparin Sodium (Porcine) (Heparin) 5,000 units SC TID [facility] Last Admin: 01/26/18 20:24 Dose: 5,000 units Vancomycin HCl 1.5 gm/ Sodium (Chloride) 300 mls @ 200 mls/hr IVPB WILLCALL [facility] Vancomycin HCl 1.25 gm/ Sodium (Chloride) 250 mls @ 166.667 mls[facility]hr [facility] Vancomycin HCl 1 gm/ Device 200 mls @ 200 mls/hr [facility] Vancomycin HCl 750 mg/ Sodium (Chloride) 250 mls @ 250 mls/hr [facility] Dextrose/Water (D5w) 1,000 mls @ 0 mls/hr IV .Q0M PRN PRN Reason: Hypoglycemia Insulin Human Lispro (Humalog) 0 units SC .MILD SLIDING SCALE PRN PRN Reason: Mild Correctional Scale Last Admin: 01/26/18 20:39 Dose: 3 unit Metronidazole (Flagyl) 500 mg PO TID [facility] Last Admin: 01/26/18 20:24 Dose: 500 mg Miscellaneous Medication (Pharmacy To Dose) 0 each IVPB PRN PRN PRN Reason: PHARMACY TO DOSE Morphine Sulfate (Morphine) 2 mg SLOW IVP Q4H PRN PRN Reason: Severe Pain (7-10) Last Admin: 01/26/18 21:37 Dose: 2 mg Hold Vancomycin For (Level >20) 0 each FS .AT DIALYSIS [facility] Ondansetron HCl (Zofran) 4 mg IVP Q6H PRN PRN Reason: Nausea/Vomiting Sodium Chloride (Flush - Normal Saline) 10 ml IVF Q12HR [facility] Last Admin: 01/26/18 20:24 Dose: 10 ml Sodium Chloride (Flush - Normal Saline) 10 ml IVF PRN PRN PRN Reason: Saline Flush
[2018-01-27] MEDS: Morphine 2 MG/ML SYRINGE SLOW IVP PRN ×2 (05:26→12:44)
[2018-01-27] MEDS ORDERED: cloNIDine 0.1 MG TAB PO PRN (07:30)
[2018-01-27] MEDS ORDERED: hydrALAZINE 20 MG/ML VIAL SLOW IVP PRN (07:30)
[2018-01-27] MEDS: Aspirin 325 MG TAB PO SCH (08:32)
[2018-01-27] MEDS: cloNIDine 0.1 MG TAB PO SCH ×2 (08:32→20:55)
[2018-01-27] MEDS: Amlodipine 5 MG TAB PO SCH ×2 (08:32→20:56)
[2018-01-27] MEDS: Heparin 5,000 UNITS/ML VIAL SC SCH ×3 (08:33→20:58)
[2018-01-27] MEDS: Ciprofloxacin 500 MG TAB PO SCH (08:33)
[2018-01-27] MEDS: metroNIDAZOLE 500 MG TAB PO SCH ×3 (08:33→21:00)
[2018-01-27] MEDS: Sevelamer Carbonate 800 MG TAB PO SCH ×3 (08:35→20:55)
[2018-01-27] MEDS: Insulin Glargine 10 UNITS in Pre-Filled Syringe 1 EACH SC SCH (10:29)
--- NOTE | 2018-01-27 12:31 | PDOC.PN ---
- Subjective Encounter Start Date: 01/27/18 Encounter Start Time: 10:30 Patient seen and examined for Sepsis. Doing well. Low grade fever. No N/V. No new complaints. No overnight events - Objective Resuscitation Status: Resuscitation Status FULL:Full Resuscitation MAR Reviewed: Yes Vital Signs & Weight: Vital Signs (12 hours) Temp Pulse Resp BP BP Pulse Ox 01/27/18 08:32 75 162/71 H 01/27/18 08:00 99.7 F H 72 18 162/71 H 96 Weight Admit Weight 256 lb 3.2 oz Weight 256 lb 3.2 oz I&O: 01/26/18 01/27/18 01/28/18 06:59 06:59 06:59 Intake Total 520 480 240 Balance 520 480 240 Result Diagrams: 01/26/18 04:36 01/26/18 04:36 Additional Labs: Accuchecks 01/27/18 01/27/18 01/26/18 10:55 04:45 20:29 POC Glucose 197 H 130 H 202 H 01/26/18 16:26 POC Glucose 256 H Phys Exam - Physical Examination Constitutional: NAD Respiratory: no wheezing, no rhonchi Cardiovascular: RRR, no rub Gastrointestinal: soft, non-tender, positive bowel sounds Musculoskeletal: no edema Rt foot dressing + Neurological: moves all 4 limbs Dx/Plan - Plan DVT proph w/heparin, DVT proph w/SCDs IMPRESSION: 1. Sepsis due to diabetic foot infection 2. DM2 - on sliding scale 3. HTN 4. Anaphylactic reaction to PCN 4. ESRD on dialysis / Obesity BMI 39.5 / HLD 5. Other issues per previous notes PLAN: Cont Vancomycin with PO Cipro/Flagyl Monitor Vancomycin level Cont wound care Resume Hydralazine and Imdur Cont Amlodipine and Clonidine Add Lantus at HS Cont Sliding scale Dialysis per Nephrology Cont current meds as below AM labs Review of Systems - Review of Systems Respiratory: negative: Cough, Dry, Shortness of Breath, Hemoptysis, SOB with Excertion, Pleuritic Pain, Sputum, Wheezing Cardiovascular: negative: chest pain, palpitations, orthopnea, paroxysmal nocturnal dyspnea, edema, light headedness, other - Medications/Allergies Allergies/Adverse Reactions: Allergies Allergy/AdvReac Type Severity Reaction Status Date / Time Penicillins Allergy Severe Anaphylaxis Verified 09/28/18 09:30 Medications: Current Medications Acetaminophen (Tylenol) 650 mg PO Q4H PRN PRN Reason: Headache/Fever or Pain Last Admin: 01/25/18 16:02 Dose: 650 mg Amlodipine Besylate (Norvasc) 5 mg PO BID [facility] Last Admin: 01/27/18 08:32 Dose: 5 mg Aspirin (Aspirin) 325 mg PO DAILY [facility] Last Admin: 01/27/18 08:32 Dose: 325 mg Cholecalciferol (Vitamin D3) 1,000 units PO DAILY [facility] Last Admin: 01/27/18 08:33 Dose: 1,000 units Ciprofloxacin (Cipro) 500 mg PO DAILY [facility] Last Admin: 01/27/18 08:33 Dose: 500 mg Clonidine (Catapres) 0.1 mg PO BID [facility] Last Admin: 01/27/18 08:32 Dose: 0.1 mg Clonidine (Catapres) 0.1 mg PO Q4H PRN PRN Reason: Systolic BP > 180 Dextrose/Water (Dextrose 50%) 25 gm SLOW IVP PRN PRN PRN Reason: Hypoglycemia Epoetin Luciano (Procrit) 7,500 units SC Q7D [facility] Last Admin: 01/26/18 13:47 Dose: 7,500 units Glucagon (Glucagon) 1 mg IM PRN PRN PRN Reason: Hypoglycemia Heparin Sodium (Porcine) (Heparin) 5,000 units SC TID [facility] Last Admin: 01/27/18 08:33 Dose: 5,000 units Hydralazine HCl (Apresoline) 10 mg SLOW IVP Q4H PRN PRN Reason: SBP Greater Than 180 Vancomycin HCl 1.5 gm/ Sodium (Chloride) 300 mls @ 200 mls/hr IVPB [facility] Vancomycin HCl 1.25 gm/ Sodium (Chloride) 250 mls @ 166.667 mls/hr [facility] Vancomycin HCl 1 gm/ Device 200 mls @ 200 mls/hr IVPB [facility] Vancomycin HCl 750 mg/ Sodium (Chloride) 250 mls @ 250 mls/hr IVPB [facility] Dextrose/Water (D5w) 1,000 mls @ 0 mls/hr IV .Q0M PRN PRN Reason: Hypoglycemia Insulin Glargine 10 units/ (Miscellaneous Medication) 0.1 mls @ 0 mls/hr SC [facility] Last Admin: 01/27/18 10:29 Dose: Not Given Insulin Human Lispro (Humalog) 0 units SC .MILD SLIDING SCALE PRN PRN Reason: Mild Correctional Scale Last Admin: 01/26/18 20:39 Dose: 3 unit Metronidazole (Flagyl) 500 mg PO TID [facility] Last Admin: 01/27/18 08:33 Dose: 500 mg Miscellaneous Medication (Pharmacy To Dose) 0 each IVPB PRN PRN PRN Reason: PHARMACY TO DOSE Morphine Sulfate (Morphine) 2 mg SLOW IVP Q4H PRN PRN Reason: Severe Pain (7-10) Last Admin: 01/27/18 05:26 Dose: 2 mg Hold Vancomycin For (Level >20) 0 each FS .AT DIALYSIS [facility] Ondansetron HCl (Zofran) 4 mg IVP Q6H PRN PRN Reason: Nausea/Vomiting Sevelamer Carbonate (Renvela) 800 mg PO TID [facility] Last Admin: 01/27/18 08:35 Dose: 800 mg Sodium Chloride (Flush - Normal Saline) 10 ml IVF Q12HR [facility] Last Admin: 01/27/18 10:28 Dose: 10 ml Sodium Chloride (Flush - Normal Saline) 10 ml IVF PRN PRN PRN Reason: Saline Flush
[2018-01-27] MEDS ORDERED: diphenhydrAMINE 25 MG CAP PO PRN (12:39)
--- NOTE | 2018-01-27 14:54 | PRG ---
DATE OF SERVICE: 01/27/2018 SUBJECTIVE: Still with moderate pain in the right lower extremity, mostly on palpation. No respirat ory symptoms, no abdominal pain. OBJECTIVE: VITAL SIGNS: T-max 99.7, blood pressure 160/71, pulse 75, respirations 18. GENERAL: Chronically ill-appearing, in no acute distress. Awake, oriented, pleasant. LUNGS: Symmetric clear breath sounds. CARDIOVASCULAR: S1 and S2, regular rate. EXTREMITIES: Right leg with quite a bit of tenderness on palpation in the anterior segment, below th e lower third towards the foot. The foot is not as tender. LABORATORY DATA: White cell count down from 11 to 9.2, hemoglobin 9.0, platelets 162, and creatinine 4.74. Two sets of blood cultures, no growth at 48 hours. No new reports. ASSESSMENT: Type 2 diabetes, multiple complications in the feet, partial amputation, and now with os teolytic lesion calcaneus. The patient to continue on vancomycin sliding scale, particularly in view of the reaction that he had to Zosyn recently, which was consistent with anaphylactic shock. Also, add Cipro and Flagyl for the first 4 weeks and then continue vancomycin sliding scale for a total of 8 weeks. The end date of [facility] will be 03/24 with weekly labs.
[2018-01-27] MEDS: hydrALAZINE 25 MG TAB PO SCH ×2 (15:27→20:59)
[2018-01-27] MEDS: HumaLOG 300 UNITS/3 ML VIAL SC PRN (16:32)
[2018-01-27] MEDS: Famotidine 20 MG TAB PO SCH (20:57)
[2018-01-27] MEDS ORDERED: Insulin Glargine 10 UNITS in Pre-Filled Syringe SC SCH (21:00)
[2018-01-27] MEDS ORDERED: Famotidine 20 MG TAB PO SCH (21:00)
[2018-01-28 05:12] LABS: #Eosinphils 0.2 thou/uL (0.0-0.7); #Lymphocytes 2.4 thou/uL (1.20-3.40); #Monocytes 0.6 thou/uL (0.11-0.59); #Neutrophils 3.2 thou/uL (1.40-6.50); %Basophils 0.4 % (0.0-1.0); %Lymphocytes 37.8 % (21.0-51.0); %Monocytes 8.8 % (0.0-10.0); %Neutrophils 49.9 % (42.0-75.0); Hemoglobin 8.5 g/dL (14.0-18.0); Mean Corpuscular Volume 93.8 fL (78.0-98.0); Mean Platelet Volume 8.4 fL (7.4-10.4); Platelet Count 171 thou/uL (130-400); RBC Distribution Width 15.3 % (11.5-14.5); Red Blood Cell (RBC) Count 2.91 mill/uL (4.70-6.10); White Blood Cell (WBC) Count 6.4 thou/uL (4.8-10.8)
[2018-01-28] MEDS: Ondansetron HCl/PF 4 MG/2 ML Vial IVP PRN ×2 (08:07→13:07)
[2018-01-28] MEDS: Heparin 5,000 UNITS/ML VIAL SC SCH ×3 (08:30→20:37)
[2018-01-28] MEDS: hydrALAZINE 25 MG TAB PO SCH ×3 (08:30→20:39)
[2018-01-28] MEDS: Sevelamer Carbonate 800 MG TAB PO SCH ×3 (09:18→20:39)
--- NOTE | 2018-01-28 09:24 | PRG ---
DATE OF SERVICE: 01/28/2018 SUBJECTIVE: Mr. Hernandez is a 57-year-old male with ESRD and admitted for right foot infecti on. Currently on antibiotics. We are following up this patient for his maintenance hemodialysis. Helena singleton is currently undergoing dialysis. I am at the bedside supervising his dialysis. No new complaints today. PHYSICAL EXAMINATION: VITAL SIGNS: Blood pressure is 144/71, heart rate 66, respiratory rate 18, temperature 98.2, pulse o x 94%. GENERAL: Awake, alert, comfortable, not in distress. SKIN: Adequate turgor. HEENT: He has slightly pale conjunctivae, anicteric sclerae. NECK: No neck mass, no carotid bruits, no JVD. CHEST: No deformities. LUNGS: Clear breath sounds. HEART: Normal sinus rhythm. No murmur, no gallops, no rubs. ABDOMEN: Globular, soft, nontender, no masses. EXTREMITIES: No edema, no deformities. Positive for right foot dressing. MEDICATIONS: 01/28/2018 - Reviewed. LABORATORY: 01/28/2018 - White count 6.4, hemoglobin 8.5. Glucose 110. 01/26/2018 - Potassium 4.4, BUN 31, creatinine 4.74. ASSESSMENT AND PLAN: 1. End-stage renal disease - stable. I am at the bedside supervising his dialysis. He is toleratin g said treatment, fluid removal only as tolerated. 2. Chronic anemia - on weekly Epogen. 3. Right foot infection/osteomyelitis - currently on antibiotics. ID is following. Overall I agree with current management.
[2018-01-28 09:27] LABS: Vancomycin, Random 8.8 ug/mL (See Comment)
[2018-01-28 10:11] LABS: HBSAg Index 0.23 S/CO (0-0.99); Hep B Surf Ag Non-Reactive S/CO (NonReactive)
[2018-01-28] MEDS: metroNIDAZOLE 500 MG TAB PO SCH ×3 (13:05→20:37)
[2018-01-28] MEDS: cloNIDine 0.1 MG TAB PO SCH ×2 (13:07→20:38)
[2018-01-28] MEDS: Ciprofloxacin 500 MG TAB PO SCH (13:07)
[2018-01-28] MEDS: Amlodipine 5 MG TAB PO SCH ×2 (13:08→20:37)
[2018-01-28] MEDS: Aspirin 325 MG TAB PO SCH (13:08)
[2018-01-28] MEDS: Insulin Glargine 10 UNITS in Pre-Filled Syringe 1 EACH SC SCH (13:09)
[2018-01-28 13:36] LABS: Calcium 8.2 mg/dL (7.8-10.44); Chloride 93 mmol/L (98-107); Potassium 4.7 mmol/L (3.5-5.1); Sodium 128 mmol/L (136-145)
[2018-01-28 13:37] LABS: Glucose 118 mg/dL (70-105)
[2018-01-28 13:38] LABS: Anion Gap 18 mmol/L (10-20); Carbon Dioxide 22 mmol/L (22-29)
[2018-01-28 13:40] LABS: Calc. Creatinine Clearance 17 mL/min (70-130); Estimated GFR-MDRD 7
[2018-01-28 13:41] LABS: BUN (Urea Nitrogen) 58 mg/dL (8.4-25.7)
--- NOTE | 2018-01-28 16:14 | PDOC.PN ---
- Subjective Encounter Start Date: 01/28/18 Encounter Start Time: 10:45 Patient seen and examined for Sepsis/Osteomyelitis. No new fever/chills. Feels better. No new complaints. No overnight events - Objective Resuscitation Status: Resuscitation Status FULL:Full Resuscitation MAR Reviewed: Yes Vital Signs & Weight: Vital Signs (12 hours) Temp Pulse Resp BP BP Pulse Ox 01/28/18 15:32 92 115/57 L 01/28/18 13:15 98.6 F 92 18 190/70 H 95 01/28/18 13:08 92 190/70 H 01/28/18 13:07 190/70 H 01/28/18 08:30 66 01/28/18 07:42 98.2 F 66 18 144/71 H 94 L 01/28/18 07:40 94 L Weight Admit Weight 256 lb 3.2 oz Weight 256 lb 3.2 oz I&O: 01/27/18 01/28/18 01/29/18 06:59 06:59 06:59 Intake Total 480 940 Balance 480 940 Result Diagrams: 01/28/18 04:33 01/28/18 09:15 Additional Labs: Accuchecks 01/28/18 01/28/18 01/27/18 13:04 05:31 20:53 POC Glucose 90 110 187 H 01/27/18 16:13 POC Glucose 215 H Phys Exam - Physical Examination Constitutional: NAD Respiratory: no wheezing, no rhonchi Cardiovascular: RRR, no rub Gastrointestinal: soft, non-tender, positive bowel sounds Musculoskeletal: no edema Rt foot dressing present Neurological: moves all 4 limbs Dx/Plan - Plan DVT proph w/heparin, DVT proph w/SCDs IMPRESSION: 1. Sepsis due to diabetic foot infection/Osteomyelitis 2. DM2 - on sliding scale 3. HTN 4. Anaphylactic reaction to PCN 4. ESRD on dialysis / Obesity BMI 39.5 / HLD 5. Other issues per previous notes PLAN: Consult volunteer services manager for Vancomycin setup with dialysis Cont Vancomycin with PO Cipro/Flagyl - Monitor Vancomycin level with dialysis Cont wound care Cont current HTN meds Cont Lantus with sliding scale - Will dc HS dose Dialysis per Nephrology Cont current meds as below Dialysis today Microbiology 01/24/18 21:53 Venous blood - Right Hand Blood Culture - Preliminary NO GROWTH AT 48 HOURS 01/24/18 21:47 Venous blood - Right Arm Blood Culture - Preliminary NO GROWTH AT 48 HOURS Laboratory Tests 01/26/18 01/26/18 04:36 04:36 ESR Westergren 83 C-Reactive Protein 18.28 H Review of Systems - Review of Systems Respiratory: negative: Cough, Dry, Shortness of Breath, Hemoptysis, SOB with Excertion, Pleuritic Pain, Sputum, Wheezing Cardiovascular: negative: chest pain, palpitations, orthopnea, paroxysmal nocturnal dyspnea, edema, light headedness, other - Medications/Allergies Allergies/Adverse Reactions: Allergies Allergy/AdvReac Type Severity Reaction Status Date / Time Penicillins Allergy Severe Anaphylaxis Verified 01/25/18 09:30 Medications: Current Medications Acetaminophen (Tylenol) 650 mg PO Q4H PRN PRN Reason: Headache/Fever or Pain Last Admin: 01/25/18 16:02 Dose: 650 mg Amlodipine Besylate (Norvasc) 5 mg PO BID [facility] Last Admin: 01/28/18 13:08 Dose: 5 mg Aspirin (Aspirin) 325 mg PO DAILY [facility] Last Admin: 01/28/18 13:08 Dose: 325 mg Cholecalciferol (Vitamin D3) 1,000 units PO DAILY [facility] Last Admin: 01/28/18 13:07 Dose: 1,000 units Ciprofloxacin (Cipro) 500 mg PO DAILY [facility] Last Admin: 01/28/18 13:07 Dose: 500 mg Clonidine (Catapres) 0.1 mg PO BID [facility] Last Admin: 01/28/18 13:07 Dose: 0.1 mg Clonidine (Catapres) 0.1 mg PO Q4H PRN PRN Reason: Systolic BP > 180 Dextrose/Water (Dextrose 50%) 25 gm SLOW IVP PRN PRN PRN Reason: Hypoglycemia Diphenhydramine HCl (Benadryl) 25 mg PO Q6H PRN PRN Reason: Itching & Insomnia Epoetin Luciano (Procrit) 7,500 units SC Q7D [facility] Last Admin: 01/26/18 13:47 Dose: 7,500 units Famotidine (Pepcid) 20 mg PO 2100 [facility] Last Admin: 01/27/18 20:57 Dose: 20 mg Glucagon (Glucagon) 1 mg IM PRN PRN PRN Reason: Hypoglycemia Heparin Sodium (Porcine) (Heparin) 5,000 units SC TID [facility] Last Admin: 01/28/18 15:30 Dose: 5,000 units Hydralazine HCl (Apresoline) 10 mg SLOW IVP Q4H PRN PRN Reason: SBP Greater Than 180 Hydralazine HCl (Apresoline) 100 mg PO TID [facility] Last Admin: 01/28/18 15:32 Dose: Not Given Vancomycin HCl 1.5 gm/ Sodium (Chloride) 300 mls @ 200 mls/hr IVPB [facility] Vancomycin HCl 1.25 gm/ Sodium (Chloride) 250 mls @ 166.667 mls/hr IVPB [facility] Last Admin: 01/28/18 11:23 Dose: 250 mls Vancomycin HCl 1 gm/ Device 200 mls @ 200 mls/hr IVPB [facility] Vancomycin HCl 750 mg/ Sodium (Chloride) 250 mls @ 250 mls/hr IVPB [facility] Dextrose/Water (D5w) 1,000 mls @ 0 mls/hr IV .Q0M PRN PRN Reason: Hypoglycemia Insulin Glargine 10 units/ (Miscellaneous Medication) 0.1 mls @ 0 mls/hr [facility] Last Admin: 01/28/18 13:09 Dose: Not Given Insulin Glargine 10 units/ (Miscellaneous Medication) 0.1 mls @ 0 mls/hr SC [facility] Last Admin: 01/27/18 21:00 Dose: 0.1 mls Insulin Human Lispro (Humalog) 0 units SC .MILD SLIDING SCALE PRN PRN Reason: Mild Correctional Scale Last Admin: 01/27/18 16:32 Dose: 3 unit Isosorbide Mononitrate (Imdur) 60 mg PO DAILY [facility] Last Admin: 01/28/18 13:08 Dose: 60 mg Metronidazole (Flagyl) 500 mg PO TID [facility] Last Admin: 01/28/18 15:30 Dose: 500 mg Miscellaneous Medication (Pharmacy To Dose) 0 each IVPB PRN PRN PRN Reason: PHARMACY TO DOSE Morphine Sulfate (Morphine) 2 mg SLOW IVP Q4H PRN PRN Reason: Severe Pain (7-10) Last Admin: 01/27/18 12:44 Dose: 2 mg Hold Vancomycin For (Level >20) 0 each FS .AT DIALYSIS [facility] Ondansetron HCl (Zofran) 4 mg IVP Q6H PRN PRN Reason: Nausea/Vomiting Last Admin: 01/28/18 13:07 Dose: 4 mg Sevelamer Carbonate (Renvela) 800 mg PO TID [facility] Last Admin: 01/28/18 15:30 Dose: 800 mg Sodium Chloride (Flush - Normal Saline) 10 ml IVF Q12HR [facility] Last Admin: 01/28/18 13:09 Dose: 10 ml Sodium Chloride (Flush - Normal Saline) 10 ml IVF PRN PRN PRN Reason: Saline Flush
[2018-01-28] MEDS: HumaLOG 300 UNITS/3 ML VIAL SC PRN (17:46)
[2018-01-28] MEDS: Famotidine 20 MG TAB PO SCH (20:37)
[2018-01-29] MEDS: HumaLOG 300 UNITS/3 ML VIAL SC PRN ×2 (05:08→12:07)
[2018-01-29 05:51] LABS: #Eosinphils 0.2 thou/uL (0.0-0.7); #Lymphocytes 1.9 thou/uL (1.20-3.40); #Monocytes 0.6 thou/uL (0.11-0.59); %Basophils 0.2 % (0.0-1.0); %Eosinophils 2.2 % (0.0-10.0); %Lymphocytes 28.8 % (21.0-51.0); %Monocytes 9.5 % (0.0-10.0); %Neutrophils 59.3 % (42.0-75.0); Hemoglobin 8.3 g/dL (14.0-18.0); Mean Corpuscular HGB CONC 31.1 g/dL (32.0-36.0); Mean Corpuscular Hemoglobin 28.9 pg (27.0-31.0); Mean Corpuscular Volume 93.2 fL (78.0-98.0); Mean Platelet Volume 7.6 fL (7.4-10.4); Platelet Count 217 thou/uL (130-400); RBC Distribution Width 15.5 % (11.5-14.5); Red Blood Cell (RBC) Count 2.85 mill/uL (4.70-6.10); White Blood Cell (WBC) Count 6.7 thou/uL (4.8-10.8)
[2018-01-29 06:02] LABS: Anion Gap 16 mmol/L (10-20); BUN (Urea Nitrogen) 36 mg/dL (8.4-25.7); Calc. Creatinine Clearance 26 mL/min (70-130); Calcium 8.3 mg/dL (7.8-10.44); Carbon Dioxide 26 mmol/L (22-29); Chloride 95 mmol/L (98-107); Estimated GFR-MDRD 12; Glucose 204 mg/dL (70-105); Potassium 4.5 mmol/L (3.5-5.1); Sodium 132 mmol/L (136-145)
[2018-01-29] MEDS: Insulin Glargine 10 UNITS in Pre-Filled Syringe 1 EACH SC SCH (08:56)
[2018-01-29] MEDS: Sevelamer Carbonate 800 MG TAB PO SCH (08:57)
[2018-01-29] MEDS: Heparin 5,000 UNITS/ML VIAL SC SCH (08:57)
[2018-01-29] MEDS: hydrALAZINE 25 MG TAB PO SCH (08:59)
[2018-01-29] MEDS: metroNIDAZOLE 500 MG TAB PO SCH (09:00)
[2018-01-29] MEDS: Ciprofloxacin 500 MG TAB PO SCH (09:01)
[2018-01-29] MEDS: Aspirin 325 MG TAB PO SCH (09:01)
[2018-01-29] MEDS: Amlodipine 5 MG TAB PO SCH (09:47)
[2018-01-29] MEDS: cloNIDine 0.1 MG TAB PO SCH (09:47)
[2018-01-29 11:31] VITALS: BP 132/61; TEMP 97.8
--- NOTE | 2018-01-29 12:35 | DIS ---
DATE OF DISCHARGE: 01/29/2018 DISCHARGE DISPOSITION: Home. FOLLOWUP: Follow up with primary care physician. Follow up at [place] [facility] in 1 week. Th e patient sees Dr. Alston. Follow up with Dr. Wood and Dr. Stearns in 2 weeks. Follow up with N ephrology, Dr. Dalal, for maintenance hemodialysis. ALLERGIES: The patient is allergic to PENICILLIN, which causes anaphylaxis. DISCHARGE MEDICATIONS: Ciprofloxacin 500 mg daily for 28 days, Flagyl 500 mg three times daily for 1 month, vancomycin with dialysis. All other home medications were left unchanged. BRIEF HOSPITAL COURSE: The patient is a 57-year-old male with recent diabetic foot infection, presen emperatriz to the hospital with right foot pain. His workup was consistent with sepsis secondary to diabeti c foot infection with osteomyelitis. He had anaphylactic reaction to Zosyn in the emergency room, re quiring brief CPR and epinephrine. The patient was evaluated by Infectious Disease as well as [facility] Surgery, Dr. Wood. Dr. Stearns recommended vancomycin with dialysis for 8 weeks. He will take cip rofloxacin and Flagyl for 4 weeks. He underwent hemodialysis per Nephrology. He has been cleared by consultants for discharge. FINAL DIAGNOSES: 1. Sepsis secondary to diabetic foot infection. Foot x-ray showed osteomyelitis of the calcaneus of the right foot. 2. Anaphylaxis to penicillin, requiring epinephrine and brief CPR. 3. End-stage renal disease, on hemodialysis. 4. Hypertension. 5. Diabetes mellitus type 2. 6. Morbid obesity with a BMI 40.1. 7. Hyperlipidemia. 8. Secondary hyperparathyroidism. 9. History of cerebrovascular accident with residual left-sided weakness. 10. Dyslipidemia. 11. Anemia secondary to renal disease. 12. Chronic hyponatremia. 13. Elevated inflammatory markers. CRP was 18.2 with ESR of 83. Plan of care was discussed with the patient in detail. He stated understanding. Total time coordinating the discharge of this patient was 37 minutes.
== END 2018-01-29 14:50 | disposition home or self-care (01) | DRG 871 ==
LOC: ERS 21:21 → ERHOLD 01-25 00:37 → IMCU/EMU 01-25 08:34 → T4-B 01-25 19:47
PROVIDERS: ADMIT Hospitalist; ATTEND Hospitalist
PROC: 5A1D70Z Performance of Urinary Filtration, Intermittent, Less than 6 Hours Per Day (ICD-10-PCS; principal; 2018-01-25)
DX: A41.9 Sepsis, unspecified organism (principal); N18.6 End stage renal disease; M86.171 Other acute osteomyelitis, right ankle and foot; E87.1 Hypo-osmolality and hyponatremia; Z68.41 Body mass index [BMI] 40.0-44.9, adult; T88.6XXA Anaphylactic reaction due to adverse effect of correct drug or medicament properly administered, initial encounter; I69.354 Hemiplegia and hemiparesis following cerebral infarction affecting left non-dominant side; E11.621 Type 2 diabetes mellitus with foot ulcer; E66.01 Morbid (severe) obesity due to excess calories; E21.3 Hyperparathyroidism, unspecified; Z89.421 Acquired absence of other right toe(s); Z79.899 Other long term (current) drug therapy; Z79.4 Long term (current) use of insulin; M19.90 Unspecified osteoarthritis, unspecified site; Z99.2 Dependence on renal dialysis; Y92.239 Unspecified place in hospital as the place of occurrence of the external cause; Z88.0 Allergy status to penicillin; E87.5 Hyperkalemia; D63.1 Anemia in chronic kidney disease; T36.0X5A Adverse effect of penicillins, initial encounter
CPT/HCPCS: 36415; 36416; 80048; 80053; 80202; 82553; 83605; 84484; 85025; 85652; 86140; 87040; 87340; 90935; 93005; 93970; 94760; 96361; 96365; 96366; 96367; 96372; 96375; 96376; A4216; G0257; G8978-GP-CL; G8979-GP-CI; J0171; J1644; J1956; J2270; J2405; J2543; J3370; J3490; J7050; Q4081

== ENCOUNTER 2018-02-06 15:58 | Outpatient (CLI) | payer MEDICARE ==
[~2018-02-06 15:58] MED LIST changes: -ISOVUE-370 76%-LOCM 1 ML ONE; +Sodium Chloride 0.9% 15 ML NEB ONE
[2018-02-06 16:52] VITALS: BP 119/59
--- NOTE | 2018-02-06 17:43 | PRG ---
Date Of Service: 02/06/2018 HISTORY: Mr. Rene Hernandez is a very pleasant 57-year-old gentleman who presents to the Wound Ce nter for evaluation of 2 wounds of the plantar surface of the right foot. The patient was discharged from [facility] on 01/29/2018 after admission for sepsis secondary to a diabe tic foot infection. Imaging revealed osteomyelitis of the calcaneus of the right foot. During the [facility]'s hospital stay, Mr. Hernandez was seen by Infectious Diseases in addition to General Surgery. The patient has received antibiotics as per Dr. Stearns. The patient states he underwent debridement a t bedside by Dr. Wood. PHYSICAL EXAMINATION: VITAL SIGNS: Temperature 99.6, pulse 88, respirations 19, blood pressure 145/65, Accu-Chek 235. EXTREMITIES: Two wounds of the plantar surface of the right foot are present. No purulent drainage is associated with either wound. Erythema of the right heel is present on exam today and associated with an area of fluctuance. This area is also warm to palpation. ASSESSMENT AND PLAN: 1. Wounds of plantar surface of right foot as described above. The patient also has an area of eryt klaudia of the right heel associated with fluctuance. This region is warm to palpation. I have recomme nded evaluation in the Emergency Department to Mr. Hernandez for evaluation by General Surgery. The randell kingsley is in agreement with the preceding treatment plan. He states he will report to the Emergency D epartment at conclusion of his clinic visit today. 2. Diabetes mellitus. The patient's Accu-Chek in clinic today is 235. 3. Hypertension. 4. Peripheral vascular disease. 5. Seizure disorder. 6. Multiple transient ischemic attacks. 7. Multiple cerebrovascular accidents. 8. Decreased left ventricular systolic function. 9. End-stage renal disease. 10. Lower gastrointestinal bleeding. 11. Anemia of renal disease.
== END 2018-02-06 15:59 | disposition home or self-care (01) ==
LOC: WCC 15:58
PROVIDERS: ATTEND Family Medicine
DX: E11.621 Type 2 diabetes mellitus with foot ulcer (principal); L97.419 Non-pressure chronic ulcer of right heel and midfoot with unspecified severity; I73.9 Peripheral vascular disease, unspecified; G40.909 Epilepsy, unspecified, not intractable, without status epilepticus; I63.9 Cerebral infarction, unspecified; I12.0 Hypertensive chronic kidney disease with stage 5 chronic kidney disease or end stage renal disease; N18.6 End stage renal disease; D63.1 Anemia in chronic kidney disease; K92.2 Gastrointestinal hemorrhage, unspecified
CPT/HCPCS: 97139; 97602; G0463; 99213; A4218

== ENCOUNTER 2018-02-06 16:54 | Inpatient (IN) | payer MEDICARE ==
[2018-02-06 17:22] LABS: #Basophils 0.1 thou/uL (0.0-0.2); #Eosinphils 0.1 thou/uL (0.0-0.7); #Lymphocytes 1.9 thou/uL (1.20-3.40); #Monocytes 0.6 thou/uL (0.11-0.59); #Neutrophils 5.3 thou/uL (1.40-6.50); %Basophils 1.6 % (0.0-1.0); %Eosinophils 1.8 % (0.0-10.0); %Lymphocytes 23.3 % (21.0-51.0); %Monocytes 7.4 % (0.0-10.0); %Neutrophils 65.9 % (42.0-75.0); Mean Corpuscular HGB CONC 31.1 g/dL (32.0-36.0); Mean Corpuscular Hemoglobin 28.5 pg (27.0-31.0); Mean Corpuscular Volume 91.7 fL (78.0-98.0); Mean Platelet Volume 6.8 fL (7.4-10.4); Platelet Count 396 thou/uL (130-400); Red Blood Cell (RBC) Count 3.51 mill/uL (4.70-6.10)
[2018-02-06] MEDS ORDERED: Clindamycin/D5W 900 mg/50 ml Premix Bag ONE (17:22)
[2018-02-06] MEDS ORDERED: Morphine 4 MG/ML VIAL ONE (17:22)
[2018-02-06 17:39] LABS: ALT (SGPT) Less than 7 U/L (8-55); AST (SGOT) 10 U/L (5-34); Albumin 3.5 g/dL (3.5-5.0); Alkaline Phosphatase 174 U/L (40-150); Anion Gap 14 mmol/L (10-20); BUN (Urea Nitrogen) 22 mg/dL (8.4-25.7); Bilirubin, Total 0.5 mg/dL (0.2-1.2); Calc. Creatinine Clearance 0 mL/min (70-130); Calcium 9.6 mg/dL (7.8-10.44); Carbon Dioxide 27 mmol/L (22-29); Chloride 101 mmol/L (98-107); Estimated GFR-MDRD 16; Globulin 4.8 g/dL (2.4-3.5); Glucose 344 mg/dL (70-105); Potassium 4.2 mmol/L (3.5-5.1); Protein, Total 8.3 g/dL (6.0-8.3); Sodium 138 mmol/L (136-145)
[2018-02-06] MEDS ORDERED: Insulin Regular 300 UNITS/3 ML VIAL SC PRN ×2 (19:52)
[2018-02-06] MEDS ORDERED: Ondansetron HCl/PF 4 MG/2 ML Vial IVP PRN (19:52)
[2018-02-06] MEDS ORDERED: Dextrose 50% Abboject 50 ML SYRINGE SLOW IVP PRN (19:52)
[2018-02-06] MEDS ORDERED: Dextrose 5% in Water 1,000 ML IV PRN (19:52)
[2018-02-06] MEDS ORDERED: Ondansetron ODT 4 MG TAB PO PRN (19:52)
[2018-02-06] MEDS ORDERED: Acetaminophen 325 MG TAB PO PRN (19:52)
[2018-02-06] MEDS ORDERED: VANCOMYCIN/ RENALLY ADJUST ANTIBIOTICS IVPB PRN (19:59)
[2018-02-06] MEDS ORDERED: Vancomycin HCl 1 GM in Premix Bag 1 BAG IVPB SCH (20:00)
[2018-02-06] MEDS ORDERED: cloNIDine 0.1 MG TAB PO PRN (20:06)
--- NOTE | 2018-02-06 20:24 | HP ---
DATE OF ADMISSION: 02/06/2018 PRIMARY CARE PHYSICIAN: Keith Frost, Dr. Alston. PRIMARY GENERAL SURGEON: Dr. Wood. PRIMARY CARDIOVASCULAR SPECIALIST: Dr. Dalal. CHIEF COMPLAINT: Increased erythema over the right heel with fluctuance. The patient was referred b marisol Loera. HISTORY OF PRESENT ILLNESS: Patient is a 57-year-old male with end-stage renal disease on h emodialysis, diabetes mellitus type 2, presented to the emergency room from the [facility] for above complaint. He was discharged from this facility 8 days ago with a diagnosis of sepsis seconda ry to diabetic foot infection with osteomyelitis of the calcaneus of the right foot. The patient did well post-discharge. He is currently on vancomycin with dialysis along with oral Cip ro and Flagyl. Over the last 24-48 hours, patient noticed worsening erythema along with swelling of his right foot. He also noticed some discoloration along with new wound over the right heel. He fel t feverish; however, denies any chills. He did not check his temperature. No recent immobilization, travel reported. No dysuria, hematuria, urgency, nausea, vomiting, abdominal pain, cough, shortness of breath, wheezing, skin rash or altered mentation reported. In the emergency room, initial vital signs showed temperature 99.4, respiration 18, pulse rate of 89 with a blood pressure of 169/65 with O2 saturation 96% on room air. He received vancomycin and clind amycin and morphine in the emergency room. The patient also tripped and fell earlier today on his left arm. He has some discomfort over his lef t arm. PAST MEDICAL HISTORY: 1. Osteomyelitis of the calcaneus of the right foot. 2. End-stage renal disease on hemodialysis, anaphylaxis to PENICILLIN. 3. Hypertension. 4. Diabetes mellitus type 2. 5. Morbid obesity with a BMI 40.1. 6. History of cerebrovascular accident with residual left-sided weakness. 7. Secondary hyperparathyroidism. 8. Hyperlipidemia. 9. Anemia of renal disease. 10. Chronic hyponatremia. PAST SURGICAL HISTORY: Right toes amputation, dialysis access. ALLERGIES: Patient had anaphylaxis to ZOSYN, last admission in the emergency room. CURRENT HOME MEDICATIONS: Patient does not have any of his medications. He stated that his medicati ons are unchanged from last discharge. SOCIAL HISTORY: Currently lives at home. No smoking, alcohol or drug use. He makes his own decisio ns with the help of his family. FAMILY HISTORY: Negative for premature coronary artery disease. REVIEW OF SYSTEMS: The following complete review of systems was negative, unless otherwise mentioned in the HPI or below: Constitutional: Weight loss or gain, ability to conduct usual activities. Sk in: Rash, itching. Eyes: Double vision, pain. ENT/Mouth: Nose bleeding, neck stiffness, pain, te nderness. Cardiovascular: Palpitations, dyspnea on exertion, orthopnea. Respiratory: Shortness of breath, wheezing, cough, hemoptysis, fever or night sweats. Gastrointestinal: Poor appetite, abdom inal pain, heartburn, nausea, vomiting, constipation, or diarrhea. Genitourinary: Urgency, frequenc y, dysuria, nocturia. Musculoskeletal: Pain, swelling. Neurologic/Psychiatric: Anxiety, depressio n. Allergy/Immunologic: Skin rash, bleeding tendency. PHYSICAL EXAMINATION: VITAL SIGNS: As discussed above. GENERAL: A 57-year-old male in no apparent distress. Denies any pain. HEENT: Head atraumatic, normocephalic. Sclerae are anicteric. Moist mucous membrane, no oral lesio n. NECK: Supple, no JVD, no carotid bruit. LUNGS: Clear to auscultation bilaterally, no wheezing, rales or rhonchi. HEART: S1, S2 present. Regular rate and rhythm. No murmur, rubs, or gallops appreciated. ABDOMEN: Soft, obese, bowel sounds present. EXTREMITIES: There is erythema over the right heel along with fluctuance and warmth. He has chronic wound on the plantar surface of the right foot without any purulent drainage. Left foot without sig nificant edema or tenderness. SKIN: As discussed above. LYMPH NODES: No palpable lymph nodes in the neck. PERIPHERAL VASCULAR: Radial pulses palpable bilaterally. MUSCULOSKELETAL: No joint swelling tenderness. LABORATORY AND X-RAY FINDINGS: CBC showed WBC 8 with hemoglobin 10, hematocrit 32.2, platelet 396. Chemistries showed sodium 138, potassium 4.2, chloride 101, bicarbonate 27, BUN 22, creatinine 3.86. CRP 9.78. Lactic acid 1.6. Blood cultures have been sent. X-ray of the foot by my review was nega tive for gas. X-ray of the left elbow and shoulder has been done, report pending at this time. IMPRESSION: 1. Right foot diabetic infection with osteomyelitis and suspected abscess. Please note that patient failed outpatient therapy. 2. End-stage renal disease on hemodialysis. 3. Diabetes mellitus type 2. 4. Hypertension. 5. Peripheral vascular disease. 6. Morbid obesity with a BMI 40.1. 7. Hyperlipidemia. 8. History of cerebrovascular accident with residual left-sided weakness. 9. Anemia secondary to chronic renal disease. PLAN: The patient will be monitored on the surgical floor. He will be kept n.p.o. past midnight. W e will consult General Surgery and Infectious Disease. I will start him on insulin sliding scale. N ephrology consulted for hemodialysis. We will resume medications based on recent discharge summary. A.m. labs. Plan of care was discussed with the patient and the family in detail. He stated understanding.
--- NOTE | 2018-02-06 20:34 | RAD ---
LEFT ELBOW 02/06/18 Four views. HISTORY: Fall with injury to elbow. Degenerative changes are seen at the elbow with spurring. There is suggestion of a small effusion wit h mild elevation of the anterior fat pad. No definite fracture identified. IMPRESSION: Degenerative changes of the elbow and evidence of joint effusion. No definite fracture identified; pascual villar, recommend short term followup to rule out occult fracture given the presence of the joint effu sarah. Code T POS: VIVIANE
--- NOTE | 2018-02-06 20:36 | RAD ---
LEFT SHOULDER: 02/06/18 Three views. HISTORY: Fall with injury to shoulder. FINDINGS/IMPRESSION: No evidence of fracture or dislocation. There are mild degenerative changes present. AC joint is norm ally aligned. Evidence of mild spurring from the humeral head. No definite fracture identified. POS: AGW
--- NOTE | 2018-02-06 20:48 | RAD ---
RIGHT FOOT: 02/06/18 Three views. HISTORY: Fall with injury to foot. COMPARISON: Comparison made to foot films of 01/24/18. The osteolytic process involving the mid calcaneus along its plantar surface shows increased distract ion and destruction. Diffuse soft tissue swelling involving the hindfoot, midfoot and forefoot. The degenerative changes in the tarsals appear stable. Old amputations appear unchanged. No acute fra cture. IMPRESSION: Progression of the osteolytic process involving the calcaneus when compared to the recent study. POS: AGW
[2018-02-06] MEDS ORDERED: HOLD VANCOMYCIN FOR LEVEL >20 FS SCH (21:00)
[2018-02-06 21:17] VITALS: BMI 38.5
[2018-02-06] MEDS: Insulin Glargine 35 UNITS in Pre-Filled Syringe 1 EACH SC SCH (21:38)
[2018-02-06] MEDS: cloNIDine 0.1 MG TAB PO SCH (21:38)
[2018-02-06] MEDS: Famotidine 20 MG TAB PO SCH (21:38)
[2018-02-06] MEDS: hydrALAZINE 25 MG TAB PO SCH (21:38)
[2018-02-06] MEDS: metroNIDAZOLE 500 MG TAB PO SCH (21:39)
[2018-02-06] MEDS: Senokot S 8.6-50 MG TAB PO SCH (21:39)
[2018-02-06] MEDS: Sevelamer Carbonate 800 MG TAB PO SCH (21:39)
[2018-02-06] MEDS: Heparin 5,000 UNITS/ML VIAL SC SCH (21:41)
[2018-02-07 05:16] LABS: #Eosinphils 0.2 thou/uL (0.0-0.7); #Lymphocytes 2.1 thou/uL (1.20-3.40); #Monocytes 0.7 thou/uL (0.11-0.59); #Neutrophils 4.2 thou/uL (1.40-6.50); %Basophils 0.1 % (0.0-1.0); %Eosinophils 2.4 % (0.0-10.0); %Lymphocytes 29.2 % (21.0-51.0); %Monocytes 10.1 % (0.0-10.0); %Neutrophils 58.2 % (42.0-75.0); Hemoglobin 8.9 g/dL (14.0-18.0); Mean Corpuscular HGB CONC 30.7 g/dL (32.0-36.0); Mean Corpuscular Hemoglobin 28.3 pg (27.0-31.0); Mean Corpuscular Volume 92.2 fL (78.0-98.0); Mean Platelet Volume 6.9 fL (7.4-10.4); Platelet Count 310 thou/uL (130-400); RBC Distribution Width 15.1 % (11.5-14.5); Red Blood Cell (RBC) Count 3.14 mill/uL (4.70-6.10); White Blood Cell (WBC) Count 7.2 thou/uL (4.8-10.8)
[2018-02-07 05:31] LABS: Anion Gap 14 mmol/L (10-20); BUN (Urea Nitrogen) 31 mg/dL (8.4-25.7); Calc. Creatinine Clearance 29 mL/min (70-130); Calcium 8.9 mg/dL (7.8-10.44); Carbon Dioxide 26 mmol/L (22-29); Chloride 101 mmol/L (98-107); Estimated GFR-MDRD 14; Glucose 221 mg/dL (70-105); Potassium 4.3 mmol/L (3.5-5.1); Sodium 137 mmol/L (136-145)
[2018-02-07 08:15] LABS: Vancomycin, Random 20.4 ug/mL (See Comment)
--- NOTE | 2018-02-07 08:55 | PRG ---
DATE OF SERVICE: 02/07/2018 SUBJECTIVE: Mr. Hernandez is a 57-year-old male who was admitted for a right foot pressure ul cer. Surgery has evaluated this wound and he feels that there might be no indication for any debridement w ith this wound. Please note the patient continues to be on his oral Cipro and metronidazole. He was recently admitted for a foot infection. No other complaints today. Denies any fever. We are being consulted for his maintenance hemodialysis. The patient did undergo hemodialysis yesterday without any difficulty. His next dialysis is tomorrow. PHYSICAL EXAMINATION: VITAL SIGNS: Blood pressure is 139/66, heart rate 77, respiratory rate 18, temperature 97.8, pulse o x 99%. GENERAL: Awake, alert, comfortable, not in distress. SKIN: Adequate turgor. HEENT: He has pinkish conjunctivae, anicteric sclerae. NECK: No neck mass, no carotid bruits, no JVD. CHEST: No deformities. LUNGS: Clear breath sounds. HEART: Normal sinus rhythm. No murmur, no gallops, no rubs. ABDOMEN: Globular, soft, nontender, no masses. EXTREMITIES: No edema, no deformities. He has a right foot ulceration. NEUROLOGIC: Moving all extremities. No tremors, no asterixis, no ataxia. MEDICATIONS: 02/07/2018 - Reviewed. LABORATORY DATA: 02/07/2018 - White count 7.2, hemoglobin 8.9. Sodium 137, potassium 4.3, chloride 101, carbon dioxide 26, BUN 31, creatinine 4.51, glucose 221, calcium 8.9. ASSESSMENT AND PLAN: 1. Right foot pressure ulceration - supportive care. Continue using supportive boots. Surgery is f ollowing. 2. End-stage renal disease, stable. We will continue current Sunday, Sunday, Sunday dialysis. N o indication for any emergent dialysis today. Review of the last Kt/V suggests he is adequately dial yzed with the current dialysis regimen. I agree with current management. Recheck base met and CBC in a.m.
[2018-02-07] MEDS: Heparin 5,000 UNITS/ML VIAL SC SCH ×2 (09:00→20:10)
[2018-02-07] MEDS ORDERED: Vancomycin HCl 750 MG in Sodium Chloride 0.9% 250 ML 250 ML IVPB SCH (09:00)
[2018-02-07] MEDS ORDERED: Vancomycin HCl 1.25 GM in Sodium Chloride 0.9% 250 ML 250 ML IVPB SCH (09:00)
[2018-02-07] MEDS ORDERED: Vancomycin HCl 1.5 GM in Sodium Chloride 0.9% 250 ML 300 ML IVPB SCH (09:00)
[2018-02-07] MEDS ORDERED: Vancomycin HCl 1 GM in Premix Bag 1 BAG IVPB SCH (09:00)
--- NOTE | 2018-02-07 10:46 | HP ---
HISTORY OF PRESENT ILLNESS: Rene Hernandez is a 57-year-old male with end-stage renal disease, admit emperatriz to the hospital by Dr. Loera. He was noted to have an eschar over his right heel. He has woun ds over his right heel. In the x-ray he had in the emergency room where he presented based on Dr. Sr chapin's recommendations demonstrated advanced osteolytic process of the calcaneus with increased dest ruction. He did have some swelling. When I inspected the heel, there is a small amount of eschar an d more indicative of decubitus. The patient's white count is 7, hemoglobin baseline 8.9. Renal func tion consistent with end-stage renal disease. Please see his recent history and physical note. ALLERGIES: PENICILLINS. PHYSICAL EXAMINATION: LUNGS: Clear to auscultation. CARDIAC: Regular rate and rhythm without murmur or gallop. ABDOMEN: Soft, nontender. EXTREMITIES: Right heel wounds, there is some mild soft tissue swelling. There is eschar over the w eightbearing portion of the right heel, weightbearing when he is in bed. There is no area of fluctua nce to drain. ASSESSMENT AND PLAN: Changes radiologically. These may reflect changes with time from recent x-ray and I am not sure they reflect advancement in the osteomyelitic changes. Clinically, there is no ind ication for drainage. I would recommend he keep his weight off his heel. We will await Dr. Stearns' o brian regarding antibiotics. In my opinion, the patient could be discharged home with instructions to keep the weight off the heal when he is in bed, keeping blankets or pillows beneath his calf above his ankle. He can follow up in my office in 2-3 weeks. I will be unavailable the remainder of the day on Sunday. Dr. Cason is covering for me. I will be continuing education instructor Sunday afternoon in the weekend.
[2018-02-07] MEDS: cloNIDine 0.1 MG TAB PO SCH ×2 (12:23→20:10)
[2018-02-07] MEDS: metroNIDAZOLE 500 MG TAB PO SCH ×3 (12:23→20:10)
[2018-02-07] MEDS: hydrALAZINE 25 MG TAB PO SCH ×3 (12:23→20:10)
[2018-02-07] MEDS: Insulin Glargine 35 UNITS in Pre-Filled Syringe 1 EACH SC SCH ×2 (12:23→20:11)
[2018-02-07] MEDS: Amlodipine 10 MG TAB PO SCH (12:23)
[2018-02-07] MEDS: Aspirin 325 MG TAB PO SCH (12:24)
[2018-02-07] MEDS: Senokot S 8.6-50 MG TAB PO SCH ×2 (12:24→20:10)
[2018-02-07] MEDS: Ciprofloxacin 500 MG TAB PO SCH (12:24)
[2018-02-07] MEDS: Sevelamer Carbonate 800 MG TAB PO SCH ×3 (12:28→20:10)
--- NOTE | 2018-02-07 15:49 | PDOC.PN ---
- Subjective Encounter Start Date: 02/07/18 Encounter Start Time: 12:00 Patient seen and examined for diabetic foot infection. No new complaints. No overnight events - Objective Resuscitation Status: Resuscitation Status FULL:Full Resuscitation MAR Reviewed: Yes Vital Signs & Weight: Vital Signs (12 hours) Temp Pulse Resp BP BP Pulse Ox 02/07/18 11:15 98 F 66 18 142/65 H 96 02/07/18 08:00 99 02/07/18 07:18 97.8 F 77 18 139/66 99 02/07/18 04:00 98.4 F 69 20 149/66 H 97 Weight Admit Weight 246 lb 5 oz Weight 246 lb 5 oz I&O: 02/06/18 02/07/18 02/08/18 06:59 06:59 06:59 Intake Total 480 Balance 480 Result Diagrams: 02/07/18 04:33 02/07/18 04:33 Additional Labs: Accuchecks 02/07/18 02/07/18 02/06/18 11:14 05:01 21:03 POC Glucose 159 H 200 H 372 H Phys Exam - Physical Examination Constitutional: NAD Respiratory: no wheezing, no rhonchi Cardiovascular: RRR, no rub Gastrointestinal: soft, non-tender, positive bowel sounds Musculoskeletal: no edema Rt foot dressing + Dx/Plan - Plan DVT proph w/heparin IMPRESSION: 1. Right foot diabetic infection with osteomyelitis and suspected abscess. Please note that patient failed outpatient therapy. 2. End-stage renal disease on hemodialysis. 3. Diabetes mellitus type 2. 4. Hypertension. 5. Peripheral vascular disease. 6. Morbid obesity with a BMI 40.1. 7. Hyperlipidemia. 8. History of cerebrovascular accident with residual left-sided weakness. 9. Anemia secondary to chronic renal disease. PLAN: Cont current Atbx Await ID input Dialysis in AM Cont sliding scale Cont current meds as below Monitor Vancomycin level Review of Systems - Review of Systems Respiratory: negative: Cough, Dry, Shortness of Breath, Hemoptysis, SOB with Excertion, Pleuritic Pain, Sputum, Wheezing Cardiovascular: negative: chest pain, palpitations, orthopnea, paroxysmal nocturnal dyspnea, edema, light headedness, other - Medications/Allergies Allergies/Adverse Reactions: Allergies Allergy/AdvReac Type Severity Reaction Status Date / Time Penicillins Allergy Severe Anaphylaxis Verified 02/06/18 21:13 piperacillin [From Zosyn] Allergy Verified 02/06/18 21:13 tazobactam [From Zosyn] Allergy Verified 02/06/18 21:13 Medications: Current Medications Acetaminophen (Tylenol) 650 mg PO Q4H PRN PRN Reason: Headache/Fever/Mild Pain (1-3) Amlodipine Besylate (Norvasc) 10 mg PO DAILY [facility] Last Admin: 02/07/18 12:23 Dose: 10 mg Aspirin (Aspirin) 325 mg PO DAILY [facility] Last Admin: 02/07/18 12:24 Dose: 325 mg Cholecalciferol (Vitamin D3) 1,000 units PO DAILY [facility] Last Admin: 02/07/18 12:24 Dose: 1,000 units Ciprofloxacin (Cipro) 500 mg PO DAILY [facility] Last Admin: 02/07/18 12:24 Dose: 500 mg Clonidine (Catapres) 0.1 mg PO BID [facility] Last Admin: 02/07/18 12:23 Dose: 0.1 mg Clonidine (Catapres) 0.1 mg PO Q4H PRN PRN Reason: Systolic BP > 180 Dextrose/Water (Dextrose 50%) 25 gm SLOW IVP PRN PRN PRN Reason: Hypoglycemia Famotidine (Pepcid) 20 mg PO QPM [facility] Last Admin: 02/06/18 21:38 Dose: 20 mg Glucagon (Glucagon) 1 mg IM PRN PRN PRN Reason: Hypoglycemia Heparin Sodium (Porcine) (Heparin) 5,000 units SC BID [facility] Last Admin: 02/07/18 09:00 Dose: Not Given Hydralazine HCl (Apresoline) 100 mg PO TID [facility] Last Admin: 02/07/18 12:23 Dose: 100 mg Dextrose/Water (D5w) 1,000 mls @ 0 mls/hr IV .Q0M PRN PRN Reason: Hypoglycemia Insulin Glargine 35 units/ (Miscellaneous Medication) 0.35 mls @ 0 mls/hr SC BID [facility] Last Admin: 02/06/18 21:38 Dose: 0.35 mls Vancomycin HCl 1.5 gm/ Sodium (Chloride) 300 mls @ 200 mls/hr IVPB WILLCALL HERI Vancomycin HCl 1.25 gm/ Sodium (Chloride) 250 mls @ 166.667 mls/hr IVPB WILLCALL [facility] Vancomycin HCl 1 gm/ Device 200 mls @ 200 mls/hr IVPB WILLCALL [facility] Vancomycin HCl 750 mg/ Sodium (Chloride) 250 mls @ 250 mls/hr IVPB WILLCALL [facility] Insulin Human Regular (Humulin R) 0 units SC .MODERATE SLIDING SC PRN PRN Reason: Moderate Correctional Scale Insulin Human Regular (Humulin R) 0 units SC .BEDTIME SLIDING SC PRN PRN Reason: Bedtime Correctional Scale Isosorbide Mononitrate (Imdur) 60 mg PO DAILY [facility] Last Admin: 02/07/18 12:23 Dose: 60 mg Metronidazole (Flagyl) 500 mg PO TID [facility] Last Admin: 02/07/18 12:23 Dose: 500 mg Miscellaneous Medication (Pharmacy To Dose) 1 each IVPB PRN PRN PRN Reason: Pharmacy to dose Hold Vancomycin For (Level >20) 0 each FS .AT DIALYSIS [facility] Ondansetron HCl (Zofran Odt) 4 mg PO Q6H PRN PRN Reason: Nausea/Vomiting Ondansetron HCl (Zofran) 4 mg IVP Q6H PRN PRN Reason: Nausea/Vomiting Senna/Docusate Sodium (Senokot S) 1 tab PO BID [facility] Last Admin: 02/07/18 12:24 Dose: 1 tab Sevelamer Carbonate (Renvela) 800 mg PO TID [facility] Last Admin: 02/07/18 12:28 Dose: 800 mg Sodium Chloride (Flush - Normal Saline) 10 ml IVF Q12HR [facility] Last Admin: 02/07/18 12:32 Dose: 10 ml Sodium Chloride (Flush - Normal Saline) 10 ml IVF PRN PRN PRN Reason: Saline Flush
[2018-02-07] MEDS: Famotidine 20 MG TAB PO SCH (20:10)
[2018-02-07] MEDS ORDERED: INSULIN GLARGINE HUM REC ANLOG SQ SCH (21:00)
[2018-02-07] MEDS ORDERED: [UNRECOGNIZED DRUG - OTHER] SQ SCH (21:00)
--- NOTE | 2018-02-07 21:56 | CON ---
DATE OF CONSULTATION: 02/07/2018 REASON FOR CONSULTATION: Pain with some x-ray changes in the left heel site. HISTORY OF PRESENT ILLNESS: A 57-year-old whom we had recently seen at the end of December of this year with a history of type 2 diabetes, end-stage renal disease on hemodialysis through an AV fistula, multiple complications in the feet, more recently in the right side. The patient has had amputations of pretty much all of the toes in the right foot, has had surgical debridement, IV antimicrobial therapy for MSSA infection. He received cefazolin and then was admitted with worsening right foot pain, which was actually localized to the back of the right ankle region. He had some chills and fever, hypotension, tachycardia with some dyspnea, and the impression was that there were new osteolytic changes in the calcaneus and we decided to continue IV antimicrobial therapy. He had some drainage in the back of the calcaneus. Of note, the last procedure by Dr. Wood consisted of left medial foot drainage of abscess and previously at the end of 03/2017, the patient had incision and drainage of right foot plantar abscess with removal of foreign body. At this time, he developed worsening pain in the posterior right ankle at the Achilles tendon. There were some concerns with drainage from the right heel wound and he was admitted. The repeat imaging studies demonstrated progression of the cellulitic process involving the calcaneus compared with the recent study. The patient also had sustained a fall, and injury to his elbow and shoulder, but there is no evidence of fracture or dislocation. The patient now is referring improvement in the pain in the right side. No change in visual symptoms or sore throat, odynophagia, dysphagia, no vomiting, no dyspnea or chest pain, no abdominal pain or diarrhea. There are no urinary output. PAST MEDICAL HISTORY: Type 2 diabetes, end-stage renal disease on hemodialysis with AV fistula, complications in feet with multiple amputations, osteolytic process right heel region, right close to the arch, which has been treated with IV antimicrobial therapy, but no drainage. PAST SURGICAL HISTORY: Includes multiple amputations of toes, dialysis fistula placement. SOCIAL HISTORY: Never a smoker. Lives with family in [place]. FAMILY HISTORY: Type 2 diabetes. ALLERGIES: Anaphylactic reaction to Zosyn. It is possible that this was a spurious association without true cause effect relationship. CURRENT MEDICATIONS: Tylenol, Norvasc, aspirin, Cipro, Catapres, heparin, insulin, metronidazole, and sliding scale, vancomycin. PHYSICAL EXAMINATION: VITAL SIGNS: T-max 98.5, blood pressure 140/60, pulse 66, respirations 18, O2 sat 96%. SKIN: Remarkable for the mid plantar ulcer, round shaped with a red base, which is fairly shallow and there is a round ulcerated area at the heel with dark red eschar at the base. No obvious erythema noted. No tenderness to palpation. No drainage. He has a functioning fistula in the upper extremity. HEENT: Ocular movements are conjugate. Oral cavity moist. NECK: Supple. LUNGS: Symmetric. Clear breath sounds. HEART: S1, S2, regular rate. No S3, S4. ABDOMEN: Soft, not distended, not tender. No ascites. EXTREMITIES: Pulses are 1+ in dorsalis pedis. NEUROLOGIC: Cognitive function appears to be intact. LABORATORY DATA: White cell count 8.0, hemoglobin 10, platelets 396 with normal differential. Chemistry with creatinine 3.86, glucose 344. Transaminases normal, alkaline phosphatase 174, albumin 3.5, globulin 4.8. Microbiology with 2 sets of negative blood cultures previously on 12/18/2017 with Staph aureus from the foot. The foot x-ray showed progression of the right heel area of osteolysis. There is a sort of a wide wedge shaped defect right at the distal aspect of the heel when he gets closer to the arch and according to the interpretation by the radiologist, there has been progression of osteolysis. ASSESSMENT: 1. Type 2 diabetes, end-stage renal disease on hemodialysis through an AV fistula, multiple right and left feet complications with partial amputations and protracted antimicrobial therapy, osteolytic area on the right heel with some progression since last visit. 2. Pain with some drainage from the heel ulcerated region. DISCUSSION: The main concern here is with persistence/progression of osteomyelitis may be a resistant pathogen that was not initially identified, versus a fracture. Discussed with Radiology, they felt that MRI or CT imaging would be fraught with difficulty in interpretation and a nuclear med study might be more helpful. We will order a [facility] WBC labeled scan. If no uptake, treat as sterile fracture, if + then might consider surgical I+D or even amputation. Continue current regimen. MTDD
--- NOTE | 2018-02-08 11:04 | PRG ---
DATE OF SERVICE: 02/08/2018 SUBJECTIVE: Mr. Hernandez is a 57-year-old male with end-stage renal disease admitted for rig ht foot ulceration. Currently, on empiric IV antibiotics. Surgery is following up. I am currently at the bedside supervising his dialysis. No other complaints today, no chest pain or shortness of br eath. OBJECTIVE: VITAL SIGNS: Blood pressure is 140/61. GENERAL: Awake, alert, supine, comfortable. SKIN: Adequate turgor. HEENT: Pinkish conjunctivae, anicteric sclerae. NECK: No neck mass, no carotid bruits, no JVD. CHEST: No deformities. LUNGS: Clear breath sounds. No wheezing. HEART: Normal sinus rhythm. No murmur, no gallops or rubs. ABDOMEN: Globular, soft, nontender, no masses. EXTREMITIES: No edema. Right foot ulceration. MEDICATIONS: Of 02/08/2018 was reviewed. LABORATORY DATA: Of 02/08/2018, pending. ASSESSMENT AND PLAN: 1. End-stage renal disease, stable. We will continue current hemodialysis regimen on Sunday, , and Sunday. We are currently attempting about 3.9 liters of fluid removal with this patient. S o far, he is tolerating said treatment. 2. Anemia, on weekly Epogen. 3. Right foot ulceration/wound - on empiric antibiotics. Surgery has evaluated the patient. Contin ue supportive care.
[2018-02-08] MEDS: hydrALAZINE 25 MG TAB PO SCH ×3 (11:17→21:10)
[2018-02-08] MEDS: Heparin 5,000 UNITS/ML VIAL SC SCH ×2 (11:17→21:31)
[2018-02-08] MEDS: Sevelamer Carbonate 800 MG TAB PO SCH ×3 (11:18→21:31)
[2018-02-08] MEDS: metroNIDAZOLE 500 MG TAB PO SCH ×3 (11:18→21:31)
[2018-02-08] MEDS: Insulin Glargine 35 UNITS in Pre-Filled Syringe 1 EACH SC SCH ×2 (11:18→21:32)
[2018-02-08] MEDS: Aspirin 325 MG TAB PO SCH (12:22)
[2018-02-08] MEDS: Amlodipine 10 MG TAB PO SCH (12:22)
[2018-02-08] MEDS: Ciprofloxacin 500 MG TAB PO SCH (12:23)
[2018-02-08] MEDS: cloNIDine 0.1 MG TAB PO SCH ×2 (12:23→21:28)
[2018-02-08] MEDS: Saccharomyces boulardii 250 MG CAP PO SCH (12:23)
[2018-02-08] MEDS: Senokot S 8.6-50 MG TAB PO SCH ×2 (12:23→21:31)
[2018-02-08 12:45] LABS: Anion Gap 14 mmol/L (10-20); BUN (Urea Nitrogen) 40 mg/dL (8.4-25.7); Calc. Creatinine Clearance 23 mL/min (70-130); Calcium 8.7 mg/dL (7.8-10.44); Carbon Dioxide 26 mmol/L (22-29); Chloride 98 mmol/L (98-107); Estimated GFR-MDRD 10; Glucose 104 mg/dL (70-105); Potassium 4.3 mmol/L (3.5-5.1); Sodium 134 mmol/L (136-145)
--- NOTE | 2018-02-08 16:21 | NM ---
WHITE BLOOD CELL SCAN: INDICATIONS: Swelling of the right heel. Assess for possible osteomyelitis. TECHNIQUE: The patient was given 22 millicuries of technetium labeled white blood cells IV. Whole body images w ere obtained with spot images of the feet. FINDINGS: There is abnormal abnormality in the region of the right hindfoot, surrounding the heel. The activit y is rather diffuse and appears to be localized within the soft tissues surrounding the calcaneus. I do not definitely confirm osseous activity. IMPRESSION: 1. Abnormal activity in the right hindfoot. 2. Cellulitis is favored. If osteomyelitis is suspected, correlation with a three phase bone scan might be of benefit. POS: TAPAN
[2018-02-08 17:06] LABS: Hemoglobin 8.5 g/dL (14.0-18.0); Red Blood Cell (RBC) Count 3.02 mill/uL (4.70-6.10); White Blood Cell (WBC) Count 8.4 thou/uL (4.8-10.8)
[2018-02-08 17:07] LABS: #Eosinphils 0.2 thou/uL (0.0-0.7); #Lymphocytes 2.6 thou/uL (1.20-3.40); #Monocytes 0.6 thou/uL (0.11-0.59); %Basophils 0.1 % (0.0-1.0); %Eosinophils 2.2 % (0.0-10.0); %Lymphocytes 30.5 % (21.0-51.0); %Monocytes 7.3 % (0.0-10.0); Mean Corpuscular HGB CONC 30.7 g/dL (32.0-36.0); Mean Corpuscular Hemoglobin 28.2 pg (27.0-31.0); Mean Corpuscular Volume 92.1 fL (78.0-98.0); Mean Platelet Volume 6.7 fL (7.4-10.4); Platelet Count 317 thou/uL (130-400); RBC Distribution Width 15.5 % (11.5-14.5)
--- NOTE | 2018-02-08 20:45 | PDOC.PN ---
- Subjective Encounter Start Date: 02/08/18 Encounter Start Time: 12:30 Patient seen and examined for diabetic foot infection. No new complaints. No overnight events - Objective Resuscitation Status: Resuscitation Status FULL:Full Resuscitation MAR Reviewed: Yes Vital Signs & Weight: Vital Signs (12 hours) Temp Pulse Resp BP BP Pulse Ox 02/08/18 20:13 98.2 F 76 16 107/55 L 95 02/08/18 15:26 126/56 L 02/08/18 12:23 134/65 02/08/18 12:22 66 134/65 02/08/18 11:00 99.1 F 75 16 128/56 L 98 Weight Admit Weight 246 lb 5 oz Weight 246 lb 5 oz I&O: 02/07/18 02/08/18 02/09/18 06:59 06:59 06:59 Intake Total 480 Balance 480 Result Diagrams: 02/09/18 04:37 02/09/18 04:37 Additional Labs: Accuchecks 02/07/18 19:55 POC Glucose 201 H Phys Exam - Physical Examination Constitutional: NAD Respiratory: no wheezing, no rhonchi Cardiovascular: RRR, no rub Gastrointestinal: soft, non-tender, positive bowel sounds Musculoskeletal: no edema foot dressing + Dx/Plan - Plan DVT proph w/SCDs IMPRESSION: 1. Right foot diabetic infection with osteomyelitis - patient failed outpatient therapy. 2. End-stage renal disease on hemodialysis. 3. Diabetes mellitus type 2. 4. Hypertension. 5. Peripheral vascular disease. 6. Morbid obesity with a BMI 40.1. 7. Hyperlipidemia. 8. History of cerebrovascular accident with residual left-sided weakness. 9. Anemia secondary to chronic renal disease. PLAN: Cont current Atbx Await Bone scan Dialysis per Nephrology Cont sliding scale Monitor Vancomycin level Cont current meds as below Review of Systems - Review of Systems Respiratory: negative: Cough, Dry, Shortness of Breath, Hemoptysis, SOB with Excertion, Pleuritic Pain, Sputum, Wheezing Cardiovascular: negative: chest pain, palpitations, orthopnea, paroxysmal nocturnal dyspnea, edema, light headedness, other - Medications/Allergies Allergies/Adverse Reactions: Allergies Allergy/AdvReac Type Severity Reaction Status Date / Time Penicillins Allergy Severe Anaphylaxis Verified 02/06/18 21:13 piperacillin [From Zosyn] Allergy Verified 02/06/18 21:13 tazobactam [From Zosyn] Allergy Verified 02/06/18 21:13 Medications: Current Medications Acetaminophen (Tylenol) 650 mg PO Q4H PRN PRN Reason: Headache/Fever/Mild Pain (1-3) Amlodipine Besylate (Norvasc) 10 mg PO DAILY [facility] Last Admin: 02/08/18 12:22 Dose: 10 mg Aspirin (Aspirin) 325 mg PO DAILY [facility] Last Admin: 02/08/18 12:22 Dose: 325 mg Cholecalciferol (Vitamin D3) 1,000 units PO DAILY [facility] Last Admin: 02/08/18 12:23 Dose: 1,000 units Ciprofloxacin (Cipro) 500 mg PO DAILY [facility] Last Admin: 02/08/18 12:23 Dose: 500 mg Clonidine (Catapres) 0.1 mg PO BID [facility] Last Admin: 02/08/18 12:23 Dose: 0.1 mg Clonidine (Catapres) 0.1 mg PO Q4H PRN PRN Reason: Systolic BP > 180 Dextrose/Water (Dextrose 50%) 25 gm SLOW IVP PRN PRN PRN Reason: Hypoglycemia Famotidine (Pepcid) 20 mg PO QPM [facility] Last Admin: 02/07/18 20:10 Dose: 20 mg Glucagon (Glucagon) 1 mg IM PRN PRN PRN Reason: Hypoglycemia Heparin Sodium (Porcine) (Heparin) 5,000 units SC BID [facility] Last Admin: 02/08/18 11:17 Dose: Not Given Hydralazine HCl (Apresoline) 100 mg PO TID [facility] Last Admin: 02/08/18 15:26 Dose: 100 mg Dextrose/Water (D5w) 1,000 mls @ 0 mls/hr IV .Q0M PRN PRN Reason: Hypoglycemia Insulin Glargine 35 units/ (Miscellaneous Medication) 0.35 mls @ 0 mls/hr SC BID [facility] Last Admin: 02/08/18 11:18 Dose: Not Given Vancomycin HCl 1.5 gm/ Sodium (Chloride) 300 mls @ 200 mls/hr IVPB WILLCALL [facility] Vancomycin HCl 1.25 gm/ Sodium (Chloride) 250 mls @ 166.667 mls/hr IVPB [facility]CALL [facility] Vancomycin HCl 1 gm/ Device 200 mls @ 200 mls/hr IVPB [facility] Vancomycin HCl 750 mg/ Sodium (Chloride) 250 mls @ 250 mls/hr IVPB [facility]CALL [facility] Insulin Human Regular (Humulin R) 0 units SC .MODERATE SLIDING SC PRN PRN Reason: Moderate Correctional Scale Last Admin: 02/08/18 16:57 Dose: 4 unit Insulin Human Regular (Humulin R) 0 units SC .BEDTIME SLIDING SC PRN PRN Reason: Bedtime Correctional Scale Isosorbide Mononitrate (Imdur) 60 mg PO DAILY [facility] Last Admin: 02/08/18 12:23 Dose: 60 mg Metronidazole (Flagyl) 500 mg PO TID [facility] Last Admin: 02/08/18 15:26 Dose: 500 mg Miscellaneous Medication (Pharmacy To Dose) 1 each IVPB PRN PRN PRN Reason: Pharmacy to dose Hold Vancomycin For (Level >20) 0 each FS .AT DIALYSIS [facility] Ondansetron HCl (Zofran Odt) 4 mg PO Q6H PRN PRN Reason: Nausea/Vomiting Ondansetron HCl (Zofran) 4 mg IVP Q6H PRN PRN Reason: Nausea/Vomiting Saccharomyces Boulardii (Florastor) 250 mg PO DAILY [facility] Last Admin: 02/08/18 12:23 Dose: 250 mg Senna/Docusate Sodium (Senokot S) 1 tab PO BID [facility] Last Admin: 02/08/18 12:23 Dose: 1 tab Sevelamer Carbonate (Renvela) 800 mg PO TID [facility] Last Admin: 02/08/18 15:26 Dose: 800 mg Sodium Chloride (Flush - Normal Saline) 10 ml IVF Q12HR [facility] Last Admin: 02/08/18 11:18 Dose: Not Given Sodium Chloride (Flush - Normal Saline) 10 ml IVF PRN PRN PRN Reason: Saline Flush
[2018-02-08] MEDS: Famotidine 20 MG TAB PO SCH (21:31)
[2018-02-09 05:12] LABS: #Eosinphils 0.2 thou/uL (0.0-0.7); #Lymphocytes 2.6 thou/uL (1.20-3.40); #Monocytes 0.7 thou/uL (0.11-0.59); #Neutrophils 4.4 thou/uL (1.40-6.50); %Basophils 0.2 % (0.0-1.0); %Lymphocytes 32.8 % (21.0-51.0); %Monocytes 8.6 % (0.0-10.0); %Neutrophils 56.5 % (42.0-75.0); Mean Corpuscular HGB CONC 30.8 g/dL (32.0-36.0); Mean Corpuscular Hemoglobin 28.4 pg (27.0-31.0); Mean Platelet Volume 6.9 fL (7.4-10.4); Platelet Count 344 thou/uL (130-400); RBC Distribution Width 16.1 % (11.5-14.5); Red Blood Cell (RBC) Count 3.17 mill/uL (4.70-6.10); White Blood Cell (WBC) Count 7.8 thou/uL (4.8-10.8)
[2018-02-09 05:30] LABS: Anion Gap 12 mmol/L (10-20); BUN (Urea Nitrogen) 23 mg/dL (8.4-25.7); Calc. Creatinine Clearance 30 mL/min (70-130); Calcium 8.5 mg/dL (7.8-10.44); Carbon Dioxide 27 mmol/L (22-29); Chloride 97 mmol/L (98-107); Estimated GFR-MDRD 14; Glucose 67 mg/dL (70-105); Sodium 132 mmol/L (136-145)
[2018-02-09 07:48] VITALS: BP 128/57; TEMP 98.6
[2018-02-09] MEDS ORDERED: Epoetin (ESRD) 20,000 UNITS/ML SC SCH (08:00)
--- NOTE | 2018-02-09 08:14 | PRG ---
DATE OF SERVICE: 02/09/2018 SUBJECTIVE: Mr. Hernandez is a 57-year-old male with end-stage renal disease and be followed by the [facility] for his maintenance hemodialysis. He was admitted for diabetic right foot infec tion. Currently, he is receiving antibiotics. The right foot suggests he may have underlying osteom yelitis. He has been given p.o. antibiotics, which seems to have failed. No complaints of chest pain or shortness of breath. PHYSICAL EXAMINATION: VITAL SIGNS: Blood pressure is 128/57, heart rate 75, respiratory rate 16, temperature 98.6, pulse o x 95%. GENERAL: Awake, alert, supine, comfortable, not in distress. SKIN: Adequate turgor. HEENT: Slightly pale conjunctivae, anicteric sclerae. NECK: No neck mass, no carotid bruits, no JVD. CHEST: No deformities. LUNGS: Clear breath sounds. HEART: Normal sinus rhythm. No murmur, no gallops or rubs. ABDOMEN: Globular, soft, nontender, no masses. EXTREMITIES: No edema, no deformities. Positive for right wound dressing. MEDICATIONS: Of 02/09/2018 was reviewed. LABORATORY DATA: Of 02/09/2018, white count 7.8, hemoglobin is 9. Sodium 132, potassium 4, chloride 97, carbon dioxide 27, BUN 23, creatinine 4.29, calcium 8.5. Vancomycin level on 02/07/2018 was 20. 4. ASSESSMENT AND PLAN: 1. Osteomyelitis of the right foot. Currently on IV vancomycin. 2. Anemia. Start Epogen 7500 units subcu every week. 3. End-stage renal disease, stable. No indication for any emergent hemodialysis. He underwent hemo dialysis yesterday without any difficulty. Fluid removal was done. Consider rechecking base met and CBC in a.m.
[2018-02-09] MEDS ORDERED: Insulin Glargine 25 UNITS in Pre-Filled Syringe 1 EACH SC SCH (09:00)
[2018-02-09] MEDS: hydrALAZINE 25 MG TAB PO SCH ×2 (09:11→14:52)
[2018-02-09] MEDS: Amlodipine 10 MG TAB PO SCH (09:12)
[2018-02-09] MEDS: metroNIDAZOLE 500 MG TAB PO SCH ×2 (09:12→14:52)
[2018-02-09] MEDS: Aspirin 325 MG TAB PO SCH (09:12)
[2018-02-09] MEDS: Sevelamer Carbonate 800 MG TAB PO SCH ×2 (09:12→14:51)
[2018-02-09] MEDS: cloNIDine 0.1 MG TAB PO SCH (09:12)
[2018-02-09] MEDS: Ciprofloxacin 500 MG TAB PO SCH (09:13)
[2018-02-09] MEDS: Senokot S 8.6-50 MG TAB PO SCH (09:13)
[2018-02-09] MEDS: Heparin 5,000 UNITS/ML VIAL SC SCH (09:13)
[2018-02-09] MEDS: Saccharomyces boulardii 250 MG CAP PO SCH (11:46)
--- NOTE | 2018-02-09 13:17 | PRG ---
DATE OF SERVICE: 02/09/2018 SUBJECTIVE: Patient is status quo. Presently, denies any pain, no respiratory symptoms, no abdomina l pain. PHYSICAL EXAMINATION: VITAL SIGNS: With a normal temperature. Other vital signs are not remarkable. LUNGS: Clear. HEART: S1 and S2, regular rate. ABDOMEN: Soft, not distended. EXTREMITIES: Foot with no changes. No inflammatory changes noticeable in that shallow ulceration at the posterior heel area. LABORATORY DATA: White cell count 7.8, hemoglobin 9, platelets 344 with a normal differential. Chem istry was not remarkable. Two sets of blood cultures from 02/06/2018, no growth at 48 hours. The ite blood cell labeling Nuclear Medicine Study did not show any osseous activity, only soft tissue ac tivity. ASSESSMENT AND DISCUSSION: Type 2 diabetes; end-stage renal disease, on hemodialysis with arterioven ous fistula, multiple right and left feet complications with partial amputations and protracted previ ous antimicrobial therapy. Currently, undergoing further antimicrobial therapy with vancomycin, Cipr o, and Flagyl. Has an area of osteolysis in the right heel, and according to the latest Nuclear Medi cine Study, this is more compatible with a fracture than with osteomyelitis. We will continue the an timicrobials for the activity noticed in the soft tissues, assuming a cellulitis secondary to the [facility] er, but we will not treat as osteomyelitis.
--- NOTE | 2018-02-10 16:32 | DIS ---
DATE OF ADMISSION: 02/06/2018 DATE OF DISCHARGE: 02/09/2018 DISCHARGE DISPOSITION: Home. FOLLOWUP: 1. Follow up with primary care physician at [facility], Dr. Alston in 1 week. 2. Follow up with Infectious Disease, Dr. Stearns and General Surgery, Dr. Wood as scheduled. 3. Follow up with Dr. Dalal for maintenance hemodialysis. BRIEF HOSPITAL COURSE: The patient is a 57-year-old male with recent diabetic foot infection, curren tly on vancomycin, ciprofloxacin and Flagyl, [facility]. He was sent to the emergency room for evaluation due to increased erythema over the right heel with fluctua nce. Please refer to the history and physical for further details. The patient was admitted to the hospital with a diagnosis of right foot diabetic infection with osteo myelitis and suspected abscess. The patient was evaluated by Infectious Disease as well as General S urgery. WBC scan was done on the that showed abnormal activity in the right hindfoot surroundin g the heel. The activity appeared mainly in the soft tissue surrounding the calcaneus. Dr. Stearns re commended to continue ciprofloxacin, Flagyl and vancomycin. He has been [facility] The patient was seen and examined on the day of discharge. Denies any new complaints. FINAL DIAGNOSES: 1. Right foot diabetic infection with suspected osteomyelitis. Please note that the patient failed outpatient therapy. 2. End-stage renal disease on hemodialysis. 3. Diabetes mellitus type 2. 4. Hypertension. 5. Peripheral vascular disease. 6. Morbid obesity with a BMI 40.1. 7. Hyperlipidemia. 8. History of cerebrovascular accident with residual left-sided weakness. 9. Anemia secondary to chronic disease. Plan of care was discussed with the patient in detail. He stated understanding.
== END 2018-02-09 16:13 | disposition home or self-care (01) | DRG 638 ==
LOC: ERS 16:54 → T4-A 21:06
PROVIDERS: ADMIT Internal Medicine; ATTEND Internal Medicine
PROC: 5A1D70Z Performance of Urinary Filtration, Intermittent, Less than 6 Hours Per Day (ICD-10-PCS; principal; 2018-02-08)
DX: E11.69 Type 2 diabetes mellitus with other specified complication (principal); I12.0 Hypertensive chronic kidney disease with stage 5 chronic kidney disease or end stage renal disease; Z68.41 Body mass index [BMI] 40.0-44.9, adult; I69.354 Hemiplegia and hemiparesis following cerebral infarction affecting left non-dominant side; L97.419 Non-pressure chronic ulcer of right heel and midfoot with unspecified severity; E87.1 Hypo-osmolality and hyponatremia; M86.8X7 Other osteomyelitis, ankle and foot; L02.611 Cutaneous abscess of right foot; N18.6 End stage renal disease; N25.81 Secondary hyperparathyroidism of renal origin; E11.22 Type 2 diabetes mellitus with diabetic chronic kidney disease; Z99.2 Dependence on renal dialysis; E11.51 Type 2 diabetes mellitus with diabetic peripheral angiopathy without gangrene; E66.01 Morbid (severe) obesity due to excess calories; E78.5 Hyperlipidemia, unspecified; D63.1 Anemia in chronic kidney disease; Z91.81 History of falling; E11.621 Type 2 diabetes mellitus with foot ulcer; Z89.421 Acquired absence of other right toe(s); Z89.411 Acquired absence of right great toe; L89.899 Pressure ulcer of other site, unspecified stage; E11.628 Type 2 diabetes mellitus with other skin complications
CPT/HCPCS: 36415; 36416; 78806; 80048; 80053; 80202; 83605; 85025; 85652; 86140; 87040; 90935; 96365; 96366; 96367; 96375; 97602; 99213; A4218; A4641; A9521; G0257; G0463; G8978-GP-CM; G8979-GP-CL; G8987-GO-CK; G8988-GO-CJ; J1644; J2270; J3370; J3490; Q4081

== ENCOUNTER 2018-02-16 17:44 | Inpatient (IN) | payer MEDICARE ==
[2018-02-16 19:24] LABS: #Eosinphils 0.2 thou/uL (0.0-0.7); #Lymphocytes 2.1 thou/uL (1.20-3.40); #Monocytes 0.5 thou/uL (0.11-0.59); #Neutrophils 4.2 thou/uL (1.40-6.50); %Basophils 0.4 % (0.0-1.0); %Eosinophils 2.7 % (0.0-10.0); %Lymphocytes 29.3 % (21.0-51.0); %Monocytes 7.6 % (0.0-10.0); %Neutrophils 60.1 % (42.0-75.0); Hemoglobin 10.1 g/dL (14.0-18.0); Mean Corpuscular HGB CONC 31.3 g/dL (32.0-36.0); Mean Corpuscular Hemoglobin 28.4 pg (27.0-31.0); Mean Corpuscular Volume 90.5 fL (78.0-98.0); Platelet Count 289 thou/uL (130-400); RBC Distribution Width 15.5 % (11.5-14.5); Red Blood Cell (RBC) Count 3.55 mill/uL (4.70-6.10); White Blood Cell (WBC) Count 7.1 thou/uL (4.8-10.8)
[2018-02-16 19:47] LABS: ALT (SGPT) Less than 7 U/L (8-55); AST (SGOT) 9 U/L (5-34); Albumin 3.3 g/dL (3.5-5.0); Alkaline Phosphatase 142 U/L (40-150); Anion Gap 14 mmol/L (10-20); BUN (Urea Nitrogen) 34 mg/dL (8.4-25.7); Bilirubin, Total 0.5 mg/dL (0.2-1.2); Calc. Creatinine Clearance 0 mL/min (70-130); Calcium 8.5 mg/dL (7.8-10.44); Carbon Dioxide 26 mmol/L (22-29); Chloride 98 mmol/L (98-107); Estimated GFR-MDRD 11; Globulin 4.3 g/dL (2.4-3.5); Glucose 333 mg/dL (70-105); Potassium 4.3 mmol/L (3.5-5.1); Protein, Total 7.6 g/dL (6.0-8.3); Sodium 134 mmol/L (136-145)
[2018-02-16] MEDS ORDERED: cefTRIAXone\\ROCEPHIN 2 GM VIAL ONE (19:54)
[2018-02-16] MEDS ORDERED: Morphine 4 MG/ML VIAL ONE (19:54)
[2018-02-16] MEDS ORDERED: Sodium Chloride 0.9% 100 ML ONE (19:54)
--- NOTE | 2018-02-16 20:52 | ULT ---
DOPPLER VENOUS ULTRASOUND OF RIGHT LOWER EXTREMITY: 02/16/18 INDICATION: Right lower extremity pain, edema and redness. TECHNIQUE: Lo scale, color doppler and vascular duplex with spectral analysis was performed of the deep venous structures of the right lower extremity. Common femoral vein, superficial femoral vein, popliteal ve in, posterior tibial vein, proximal greater saphenous and profunda veins were assessed. FINDINGS: Normal compression, flow, and augmentation seen within the deep venous structures of the right lower extremity. IMPRESSION: No evidence of DVT within the right lower extremity. POS: [facility]
[2018-02-16] MEDS ORDERED: Lorazepam 2 MG/ML VIAL ONE ×2 (21:13→21:18)
[2018-02-16] MEDS ORDERED: levETIRAcetam In NaCl (Iso-Os) 1,500 MG in Premix Bag 1 BAG IVPB SCH (21:30)
--- NOTE | 2018-02-16 21:57 | RAD ---
RIGHT FOOT TWO VIEWS: 02/16/18 INDICATION: Right foot infection. There is partial amputation of the forefoot that is unchanged from the comparison dated 06/09/14. Ther e are radiopaque densities within the plantar soft tissues of the right foot at the region just under lying the second metatarsal base suspicious for radiopaque foreign body. There is soft tissue swellin g of the forefoot. The mildly displaced calcaneal fracture is similar to a comparison from 02/06/18, with osteolysis seen along the plantar and lateral aspect of the fracture site. IMPRESSION: 1. Stable ununited calcaneal fracture with some worsening osteolysis seen along the plantar aspe ct of the calcaneus suspicious for changes of superimposed infection. 2. Stable radiopaque foreign bodies within the entire soft tissues of the right foot. 3. Prominent soft tissue swelling of the right foot. 4. Stable postsurgical changes of a partial amputation through the forefoot. POS: [facility]
--- NOTE | 2018-02-16 21:59 | RAD ---
RIGHT FORELEG TWO VIEWS: 02/16/18 INDICATION: Osteomyelitis. IMPRESSION: No acute fracture or subluxation involving the right foreleg. There is soft tissue swelling of the ri ght foreleg. POS: [facility]
--- NOTE | 2018-02-16 22:21 | CT ---
CT OF THE BRAIN WITHOUT CONTRAST: 02/16/18 INDICATION: Altered mental status. COMPARISON: Prior exam dated 01/09/18. FINDINGS: The remote left cerebellar hemisphere infarct is stable. Mild chronic small vessel white matter ische raz change is similar appearing. No acute infarct, hemorrhage or hydrocephalus is present. Septum pellucidum and third ventricle are m idline. Skull and extracranial soft tissues are unremarkable. IMPRESSION: No acute intracranial abnormality. POS: [facility]
[2018-02-17] MEDS ORDERED: Acetaminophen 325 MG TAB PO PRN (05:27)
[2018-02-17 06:37] LABS: ALT (SGPT) 7 U/L (8-55); AST (SGOT) 11 U/L (5-34); Albumin 2.9 g/dL (3.5-5.0); Alkaline Phosphatase 154 U/L (40-150); Anion Gap 13 mmol/L (10-20); BUN (Urea Nitrogen) 36 mg/dL (8.4-25.7); Bilirubin, Total 0.7 mg/dL (0.2-1.2); Calc. Creatinine Clearance 23 mL/min (70-130); Calcium 7.9 mg/dL (7.8-10.44); Carbon Dioxide 24 mmol/L (22-29); Chloride 99 mmol/L (98-107); Estimated GFR-MDRD 10; Globulin 3.8 g/dL (2.4-3.5); Glucose 215 mg/dL (70-105); Potassium 4.3 mmol/L (3.5-5.1); Protein, Total 6.7 g/dL (6.0-8.3); Sodium 132 mmol/L (136-145)
[2018-02-17] MEDS ORDERED: HYDROcodone/Acetaminophen 7.5/325 mg Tablet PO PRN (08:36)
[2018-02-17] MEDS ORDERED: Ondansetron PF 4 MG/2 ML Vial IVP PRN (08:38)
[2018-02-17] MEDS ORDERED: Ondansetron ODT 4 MG TAB PO PRN (08:38)
[2018-02-17] MEDS ORDERED: AZACTAM IVPB PRN (08:40)
[2018-02-17] MEDS ORDERED: VANCO IVPB PRN (08:40)
[2018-02-17] MEDS ORDERED: HumaLOG 300 UNITS/3 ML VIAL SC PRN (08:41)
[2018-02-17] MEDS ORDERED: Dextrose 5% in Water 1,000 ML IV PRN (08:41)
[2018-02-17] MEDS ORDERED: Dextrose 50% Abboject 50 ML SYRINGE SLOW IVP PRN (08:41)
--- NOTE | 2018-02-17 09:14 | HP ---
CHIEF COMPLAINT: Right leg pain. HISTORY OF PRESENT ILLNESS: This is a 57-year-old male with past medical history of diabetes mellitus type 2, hypertension, CVA x3 with left-sided weakness, presenting with right lower extremity pain. Per the patient's family , the patient has been having right lower extremity pain and recently went to go see his surgeon, Dr. Wood who evaluated the leg and stated that the leg is not infected; however, patient's right leg is now again swollen and the patient is having more pain, therefore, the family decided to bring the patient to the ED to be evaluated. In the ED, the patient started seizing and the patient was treated for seizures. At this point, the patient is lying in bed in the postictal state and the patient is not able to admit to right pain at this time ; however, the patient's seems to be a very good reliable historian. REVIEW OF SYSTEMS: Unable to be obtained as patient is in the postictal state. PAST MEDICAL HISTORY: Diabetes mellitus type 2, hypertension, hyperlipidemia, end-stage renal disease on hemodialysis Mondays, Wednesdays, and Fridays, CVA x3 , last stroke was in 2008. PAST SURGICAL HISTORY: Right lower extremity amputations at the toes, cholecystectomy, tonsillectomy, AV fistula at the left upper arm. PSYCHIATRIC HISTORY: The patient does not have any psychiatric history. SOCIAL HISTORY: Patient is a former smoker. The patient smokes cigarettes. The patient quit more than 10 years ago. The patient lives at home with . FAMILY HISTORY: Reviewed and noncontributory to this visit. ALLERGIES: The patient is allergic to ZOSYN and PENICILLINS. CURRENT MEDICATIONS: The patient is on, 1. Calcium acetate. 2. Vitamin D3. 3. Amlodipine. 4. [place]. 5. Tums. 6. Fluoxetine. 7. Basaglar 45 units subcu. 8. Metronidazole 500 mg. 9. Cipro 500 mg. 10. [place]-3. 11. NovoLog. 12. Renvela. 13. Atorvastatin. PHYSICAL EXAMINATION: VITAL SIGNS: Blood pressure 190/77, pulse of 81, respiratory rate of 18, temperature of 98.3, oxygen saturation of 95 on room air. GENERAL APPEARANCE: The patient is lying in bed. The patient is in a postictal state. The patient is alert, oriented x3, however. HEENT: Normocephalic, atraumatic. Pupils are equally round and reactive to light. Extraocular movements are intact. No scleral icterus. No conjunctival pallor. NECK: Supple, no JVDs. Trachea is midline. Full range of motion. Mucous membranes are moist. LUNGS: Clear to auscultation bilaterally. No wheezing, no rales, no rhonchi appreciated. CARDIOVASCULAR: Positive S1, S2, regular rate and rhythm. No murmurs, no gallops or rubs appreciated. ABDOMEN: Soft, nontender, nondistended, obese abdomen, no rigidity, no guarding. EXTREMITIES: Upper extremity, patient had 5/5 upper extremity strength. The patient is able to move upper extremities spontaneously and good pulses at the radial pulse. Lower extremity, patient has right lower extremity edema with mild erythema at the heel and also at the medial aspect. Patient do have CVA tenderness with mild palpitation at the right lower extremity. Also, there is some warmth at the extremity with 2+ pitting edema. Compared to the right, the left lower extremity is much smaller with about 1+ edema with some venous stasis. NEUROLOGIC: Cranial nerves II through XII grossly intact. No neurologic deficits noted. Patient is able to move upper and lower extremities bilaterally ; however, the patient is somnolent due to postictal state. IMAGING: Dopplers of the right lower extremity negative for DVTs. LABORATORY DATA: WBC 7.1, hemoglobin is 10.1, hematocrit is 32.2, platelet count is 289. D-dimer is 3.45. Sodium is 135, potassium is 4.3, chloride is 98 , carbon dioxide 26, anion gap of 14, BUN is 34, creatinine is 5.46. GFR is 11 , glucose is 333. AST is 9, ALT is 7, alkaline phosphatase 142. C-reactive protein is 4.48, prolactin level that was ordered is 22.97. ASSESSMENT AND PLAN: This is a 57-year-old male being admitted for: 1. Right lower extremity edema and pain, likely due to possible Charcot joint or chronic osteomyelitis. At this point, x-ray of the foot shows stable ununited calcaneal fracture with some worsening osteolysis seen along the plantar aspect of the calcaneus suspicious for changes of superimposed infection. Due to this x-ray findings, we are going to order MRI in the morning and we will follow up on MRI. I have spoken to the ED physician for MRI to be ordered. We will start the patient on antibiotics. We will do vancomycin and Zosyn and we will continue these medications. We will give patient gentle hydration. We will follow up on cultures, follow up on morning labs. We will give p.r.n. pain medications. 1. History of diabetes mellitus type 2. We will continue the patient on insulin sliding scale and we will monitor the patient on glucose closely. 2. Acute seizure. Etiology unclear at this time. The patient has been given 1000 mg of Keppra 1 dose and then we are going to do 500 mL b.i.d. as maintenance. We will continue to monitor the patient very closely. 3. Hypertension. We will continue the patient on blood pressure. 4. Hyperlipidemia. We will continue the patient on atorvastatin. 5. End-stage renal disease on hemodialysis. We will continue the patient on dialysis as scheduled on Mondays, Wednesdays and Fridays. 6. Deep venous thrombosis and gastrointestinal prophylaxis. MTDD
[2018-02-17] MEDS ORDERED: HOLD VANCOMYCIN FOR LEVEL >20 FS SCH (09:45)
[2018-02-17] MEDS ORDERED: Vancomycin HCl 1.25 GM in Sodium Chloride 0.9% 250 ML 250 ML IVPB SCH (09:45)
[2018-02-17] MEDS ORDERED: Vancomycin HCl 1 GM in Premix Bag 1 BAG IVPB SCH (09:45)
[2018-02-17] MEDS ORDERED: Vancomycin HCl 1.5 GM in Sodium Chloride 0.9% 250 ML 300 ML IVPB SCH (09:45)
[2018-02-17] MEDS ORDERED: Vancomycin Sliding Scale 1 EACH FS ONE (09:45)
[2018-02-17] MEDS: Amlodipine 10 MG TAB PO SCH (09:59)
[2018-02-17] MEDS: Calcium Acetate 667 MG CAP PO SCH ×4 (09:59→21:13)
[2018-02-17] MEDS: Heparin 5,000 UNITS/ML VIAL SC SCH ×2 (10:00→21:14)
[2018-02-17] MEDS ORDERED: Aztreonam 1 GM in Sodium Chloride 0.9% 100 ML IVPB SCH (10:00)
[2018-02-17] MEDS: FLUoxetine HCl 20 MG CAP PO SCH (10:00)
[2018-02-17] MEDS: Sevelamer Carbonate 800 MG TAB PO SCH ×3 (10:00→21:13)
[2018-02-17] MEDS: Famotidine 20 MG TAB PO SCH (10:00)
--- NOTE | 2018-02-17 11:58 | CON ---
DATE OF CONSULTATION: 02/17/2018 HISTORY OF PRESENT ILLNESS: Mr. Hernandez is a 57-year-old male with known history of end-sta ge renal disease - on maintenance hemodialysis on Sunday, Sunday, and Sunday, type 2 diabetes macario itus, and admitted due to right leg pain ? of cellulitis. In addition, while at the ER, patient developed seizure episode. Currently, this morning he feels co mfortable and not in distress. We are being consulted for his maintenance hemodialysis. REVIEW OF SYSTEMS: Positive for right leg pain and swelling. No nausea, no vomiting, recent seizure episode, no diarrhea, no constipation, no productive cough, no fever or chills, no sore throat, no d iarrhea, no dysuria, no urinary frequency, no hematochezia, no melena, no hematemesis, no fever or c hills, no abdominal pain. Appetite and energy level is fair. PAST MEDICAL HISTORY: 1. ESRD, currently on maintenance hemodialysis. 2. Seizure disorder. 3. Hypertension. 4. Peripheral vascular disease. 5. Status post CVA. 6. Status post CHF. 7. Status post multiple foot infection. 8. Peripheral vascular disease. 9. ESRD on maintenance hemodialysis. PAST SURGICAL HISTORY: 1. Status post multiple toe amputations, right. 2. Status post AV fistula placement. 3. Status post left toe amputation. 4. Status post debridement of right foot ulcer. 5. Status post laparoscopic cholecystectomy. 6. Status post cuffed dialysis catheter placement. 7. Status post I&D of diabetic right foot/plantar abscess. 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 Status post multiple blood transfusions. Currently, no IV drug abuse. No smoking, no alcohol. ALLERGIES: None. TRAUMA: None. IMMUNIZATIONS: Up to date. HOSPITALIZATIONS: Please see past medical history. FAMILY HISTORY: No family history of ESRD. MEDICATIONS: Medications of 02/17/2018; Tylenol 650 q.4, Norvasc 10 mg daily, Lipitor 10 mg at bedti me, PhosLo 667 mg 1 tab q.i.d. with meals, vitamin D3 2000 international units every day, Pepcid 20 m g daily, fish oil 1000 mg every day, Prozac 20 mg daily, heparin 5000 units subcutaneously b.i.d., in sulin Glargine 25 units subcu at bedtime, lispro sliding scale, Zofran 4 mg q.6 hours p.r.n., Renvela 800 mg p.o. t.i.d., status post ceftriaxone, status post Levetiracetam 1500 given at total of 1500 m g over several hours. Status post Ativan. PHYSICAL EXAMINATION: VITAL SIGNS: Blood pressure is 164/70, heart rate 67, respiratory rate 15, temperature 98.3, pulse o x 96%. GENERAL: Awake, alert, comfortable, not in overt distress. SKIN: Adequate turgor. HEENT: Patient has slightly pale conjunctivae, anicteric sclerae. NECK: No neck mass, no carotid bruits, no JVD. CHEST: No deformities. LUNGS: Clear breath sounds. HEART: Normal sinus rhythm. No murmur, no gallops, no rubs. ABDOMEN: Globular, soft, nontender, no masses. EXTREMITIES: No edema. Positive for mild right foot swelling. NEUROLOGIC: Awake, alert, oriented to 3 spheres. Moving all extremities. No tremors. No asterixis . No ataxia. LABORATORY DATA: Laboratories of 02/16/2018; white count 7.1, hemoglobin 10.1. On 02/17/2018, sodiu m 132, potassium 4.3, chloride 99, carbon dioxide 24, BUN 36, creatinine 5.91, glucose 215, calcium 7 .9, AST 7, albumin 2.9. IMAGING DATA: On 02/16/2018, Doppler of the right lower extremity, no DVT noted. CT scan of the brain on 02/16/2018, no acute intracranial abnormality. HOME MEDICATIONS: Includes metronidazole 500 mg p.o. t.i.d., Renvela 800 mg p.o. t.i.d., Humalog sli ding scale, Prozac 20 mg daily, Cipro 500 mg daily, atorvastatin 10 mg at bedtime, amlodipine 10 mg t ab once a day, calcium acetate 667 mg 1 tab t.i.d. ASSESSMENT AND PLAN: 1. End-stage renal disease, stable. We will continue current hemodialysis regimen. Fluid removal o nly as tolerated. There is no indication for any acute dialysis with this patient. 2. Mild anemia - continue Epogen 7500 units every week. 3. Right leg swelling ? of cellulitis - patient has been receiving several weeks of p.o. antibiotics . 4. Right leg swelling. No evidence of DVT. 5. Seizure disorder - I would suggest that we maintain this patient on anti-seizure meds. I would a lso suggest we continue the patient's metronidazole and Cipro. This was per recommendation by his ID doctor.
--- NOTE | 2018-02-17 13:17 | MRI ---
MRI OF THE RIGHT FOOT WITHOUT CONTRAST: INDICATION: Osteomyelitis, pain, edema. FINDINGS: There is diffuse abnormal marrow edema throughout the calcaneus which demonstrates osseous deformity, likely relating to osteomyelitis and associated pathologic fracture. Abnormal edema is also seen at the ankle and imaged mid foot with altered anatomy of the osseous structures indicating sequelae fro m neuropathic arthropathy such as a Charcot foot. There is abnormal edema involving the medial malle olus with an adjacent mild to moderate sized joint effusion. There is diffuse marrow edema of the ta gauri and interspersed edema is present within the imaged tarsal bones with surrounding joint fluid and a prominent degree of soft tissue edema and skin thickening compatible with cellulitis. There is abnormal susceptibility of the plantar soft tissues of the mid foot. IMPRESSION: 1. Evidence of multifocal osteomyelitis and abnormal anatomy of the osseous structures indicative of a Charcot foot. There is probable pathologic fracture associated with the diffuse edema of the calc aneus that may represent an acute pathologic fracture. 2. Prominent cellulitis. 3. Susceptibility indicating metallic artifact related to foreign bodies. POS: [facility]
--- NOTE | 2018-02-17 16:01 | CON ---
DATE OF CONSULTATION: 02/17/2018 HISTORY OF PRESENT ILLNESS: Well known to us from multiple prior visits, whom I had recently evaluat ed for concerns regarding his right foot. At that time, patient had a tagged WBC nuclear medicine st udy which did not show uptake. Therefore, we felt that an infectious process was not likely. He was discharged off antimicrobial therapy and then apparently, he had some tight wrap done to his legs an d after that he noticed that there was pain in the left leg. He came to the hospital and was admitte d. MRI has been completed. The patient denies any change in visual symptoms, sore throat, odynophag ia, dysphagia, no cough or sputum or chest pain, no abdominal pain. He still has some urinary output . He is dialyzed through a left AV fistula. PAST MEDICAL HISTORY: Type 2 diabetes, hypertension, hyperlipidemia, and end-stage renal disease on hemodialysis with AV fistula, neuropathy with multiple feet complications with multiple amputations, fracture of the left heel with concern for infection, which was not demonstrated on a nuclear medicin e study which was completed on February 07, 2018. This was a nuclear medicine study of the right heel . PAST SURGICAL HISTORY: Includes multiple amputations of toes, dialysis fistula placement, or AV fist jaylin placement. SOCIAL HISTORY: Never a smoker. Lives with family in [place]. FAMILY HISTORY: Type 2 diabetes. ALLERGIES: ZOSYN with anaphylactic reaction, although this was described as isolated hypotension and could have been a spurious association. CURRENT MEDICATIONS: Tylenol, [place], Norvasc, aztreonam, PhosLo, Tums, dextrose, Prozac, insulin, va ncomycin, sliding scale. PHYSICAL EXAMINATION: VITAL SIGNS: Temperature T-max 100.1 on 02/16/2018 and now is 98.2, blood pressure 170/80, pulse 71, respirations 16. SKIN: Shows no evidence of erythema in the right foot or leg. He has a round shaped 1.5 cm scab at the bottom aspect of the right heel region. Pulses are 1+ in dorsalis pedis. HEENT: Ocular movements are conjugate. Oral cavity with numerous missing teeth. NECK: Supple. LUNGS: Symmetric. Clear breath sounds. HEART: S1, S2, regular rate. No S3, S4. ABDOMEN: Soft, not distended or tender. No ascites. No bladder distention. EXTREMITIES: He moves extremities on commands. NEUROLOGIC: Cognitive function appears to be intact. LABORATORY DATA: White cell count 7.1, hemoglobin 10, platelets 289 with a normal differential. Priyanka damien with sodium of 132, creatinine 5.91. Prolactin 31. CRP was 4.48 on 02/16/2018. This was low er than previous. MRI has been ordered. ASSESSMENT: Type 2 diabetes, neuropathy, multiple complications in feet with various amputations, no w an area of fracture at the right heel with concern for superimposed inflammatory process. Last nuc lear medicine study did not show uptake and decision was made not to treat with antimicrobial therapy . Now patient returns with pain in the calf region in right leg and the question has been revisited. The patient has been started on broad spectrum antimicrobial coverage and blood cultures have been submitted. We will wait for the MRI. As previously discussed with radiologist, the MRI is going to be difficult to interpret because of the underlying fracture in the right heel.
[2018-02-17] MEDS: HumaLOG 300 UNITS/3 ML VIAL SC PRN (18:13)
[2018-02-17] MEDS: Atorvastatin Calcium 10 MG TAB PO SCH (21:13)
[2018-02-17] MEDS: levETIRAcetam 500 MG TAB PO SCH (21:13)
[2018-02-17] MEDS: Insulin Glargine 25 UNITS in Pre-Filled Syringe 1 EACH SC SCH (21:13)
[2018-02-18 05:09] LABS: #Eosinphils 0.2 thou/uL (0.0-0.7); #Lymphocytes 2.2 thou/uL (1.20-3.40); #Monocytes 0.5 thou/uL (0.11-0.59); #Neutrophils 3.5 thou/uL (1.40-6.50); %Basophils 0.2 % (0.0-1.0); %Eosinophils 2.5 % (0.0-10.0); %Lymphocytes 34.6 % (21.0-51.0); %Monocytes 7.2 % (0.0-10.0); %Neutrophils 55.5 % (42.0-75.0); Hemoglobin 9.6 g/dL (14.0-18.0); Mean Corpuscular HGB CONC 31.5 g/dL (32.0-36.0); Mean Corpuscular Hemoglobin 28.2 pg (27.0-31.0); Mean Corpuscular Volume 89.3 fL (78.0-98.0); Mean Platelet Volume 7.1 fL (7.4-10.4); Platelet Count 254 thou/uL (130-400); RBC Distribution Width 15.6 % (11.5-14.5); White Blood Cell (WBC) Count 6.3 thou/uL (4.8-10.8)
[2018-02-18 05:17] LABS: Anion Gap 13 mmol/L (10-20); BUN (Urea Nitrogen) 45 mg/dL (8.4-25.7); Calc. Creatinine Clearance 20 mL/min (70-130); Carbon Dioxide 27 mmol/L (22-29); Chloride 98 mmol/L (98-107); Estimated GFR-MDRD 8; Glucose 90 mg/dL (70-105); Potassium 4.5 mmol/L (3.5-5.1); Sodium 133 mmol/L (136-145)
--- NOTE | 2018-02-18 08:10 | PDOC.PN ---
- Subjective Encounter Start Date: 02/17/18 Encounter Start Time: 12:30 Subjective: pt up in bed no complains - Objective Resuscitation Status: Resuscitation Status FULL:Full Resuscitation Vital Signs & Weight: Vital Signs (12 hours) Temp Pulse Resp BP Pulse Ox 02/18/18 07:15 98.8 F 70 18 156/72 H 97 02/18/18 04:20 98.3 F 69 15 142/66 H 96 02/17/18 20:25 98.1 F 77 18 141/65 H 96 Weight Weight 260 lb 14.4 oz I&O: 02/17/18 02/18/18 02/19/18 06:59 06:59 06:59 Intake Total 700 Output Total 100 Balance 600 Result Diagrams: 02/18/18 04:31 02/18/18 04:31 Additional Labs: Accuchecks 02/18/18 02/17/18 02/17/18 06:30 21:02 17:02 POC Glucose 101 172 H 219 H 02/17/18 12:57 POC Glucose 165 H Phys Exam - Physical Examination Neck: no nodes, no JVD, supple, full ROM Respiratory: no wheezing, no rales, no rhonchi, wheezing present, clear to auscultation bilateral Cardiovascular: RRR, no significant murmur, no rub, gallop, irregular Gastrointestinal: soft, non-tender, no distention, positive bowel sounds Dx/Plan (1) Cellulitis and abscess of foot Code(s): L03.119 - CELLULITIS OF UNSPECIFIED PART OF LIMB; L02.619 - CUTANEOUS ABSCESS OF UNSPECIFIED FOOT Status: Acute Comment: right foot s/p I & D (2) DM2 (diabetes mellitus, type 2) Status: Chronic Qualifiers: (3) ESRD (end stage renal disease) on dialysis Code(s): N18.6 - END STAGE RENAL DISEASE; Z99.2 - DEPENDENCE ON RENAL DIALYSIS Status: Chronic (4) HTN (hypertension) Code(s): I10 - ESSENTIAL (PRIMARY) HYPERTENSION Status: Chronic Qualifiers: - Plan pt going for MRI of his right foot -: will continue abx for now * . Review of Systems - Review of Systems Respiratory: negative: Cough, Dry, Shortness of Breath, Hemoptysis, SOB with Excertion, Pleuritic Pain, Sputum, Wheezing Cardiovascular: negative: chest pain, palpitations, orthopnea, paroxysmal nocturnal dyspnea, edema, light headedness, other Gastrointestinal: negative: Nausea, Vomiting, Abdominal Pain, Diarrhea, Constipation, Melena, Hematochezia, Other - Medications/Allergies Allergies/Adverse Reactions: Allergies Allergy/AdvReac Type Severity Reaction Status Date / Time Penicillins Allergy Severe Anaphylaxis Verified 02/06/18 21:13 piperacillin [From Zosyn] Allergy Verified 02/06/18 21:13 tazobactam [From Zosyn] Allergy Verified 02/06/18 21:13 Medications: Current Medications Acetaminophen (Tylenol) 650 mg PO Q4H PRN PRN Reason: Headache/Fever or Pain Hydrocodone Bitart/Acetaminophen ([place] 7.5/325) 1 tab PO Q4H PRN PRN Reason: Pain Amlodipine Besylate (Norvasc) 10 mg PO DAILY [facility] Last Admin: 02/17/18 09:59 Dose: 10 mg Atorvastatin Calcium (Lipitor) 10 mg PO HS [facility] Last Admin: 02/17/18 21:13 Dose: 10 mg Calcium Acetate (Phoslo) 667 mg PO QID [facility] Last Admin: 02/17/18 21:13 Dose: 667 mg Calcium Carbonate (Tums) 1,500 mg PO QA-[facility] Cholecalciferol (Vitamin D3) 2,000 units PO DAILY [facility] Last Admin: 02/17/18 09:59 Dose: 2,000 units Dextrose/Water (Dextrose 50%) 25 gm SLOW IVP PRN PRN PRN Reason: Hypoglycemia Famotidine (Pepcid) 20 mg PO DAILY [facility] Last Admin: 02/17/18 10:00 Dose: 20 mg Fish Oil (Fish Oil) 1,000 mg PO DAILY [facility] Fluoxetine HCl (Prozac) 20 mg PO DAILY [facility] Last Admin: 02/17/18 10:00 Dose: 20 mg Glucagon (Glucagon) 1 mg IM PRN PRN PRN Reason: Hypoglycemia Heparin Sodium (Porcine) (Heparin) 5,000 units SC BID [facility] Last Admin: 02/17/18 21:14 Dose: 5,000 units Insulin Glargine 25 units/ (Miscellaneous Medication) 0.25 mls @ 0 mls/hr SC HS [facility] Last Admin: 02/17/18 21:13 Dose: 0.25 mls Dextrose/Water (D5w) 1,000 mls @ 0 mls/hr IV .Q0M PRN PRN Reason: Hypoglycemia Aztreonam 0.25 gm/ Sodium (Chloride) 100 mls @ 100 mls/hr IVPB 1000,2200 [facility] Last Admin: 02/17/18 21:15 Dose: 100 mls Vancomycin HCl 1.5 gm/ Sodium (Chloride) 300 mls @ 200 mls/hr IVPB WILLCALL [facility] Vancomycin HCl 1.25 gm/ Sodium (Chloride) 250 mls @ 166.667 mls/hr IVPB [facility] Vancomycin HCl 1 gm/ Device 200 mls @ 200 mls/hr IVPB [facility] Vancomycin HCl 750 mg/ Sodium (Chloride) 250 mls @ 250 mls/hr IVPB [facility] Insulin Human Lispro (Humalog) 0 units SC .AGGRESSIVE SLIDING PRN PRN Reason: Aggressive Correctional Scale Last Admin: 02/17/18 18:13 Dose: 6 units Insulin Human Lispro (Humalog) 0 units SC .BEDTIME SLIDING SC PRN PRN Reason: Bedtime Correctional Scale Levetiracetam (Keppra) 500 mg PO BID [facility] Last Admin: 02/17/18 21:13 Dose: 500 mg Miscellaneous Medication (Pharmacy To Dose) 1 each IVPB DAILYPRN PRN PRN Reason: LABS Hold Vancomycin For (Level >20) 0 each FS .AT DIALYSIS [facility] Ondansetron HCl (Zofran Odt) 4 mg PO Q6H PRN PRN Reason: Nausea/Vomiting Ondansetron HCl (Zofran) 4 mg IVP Q6H PRN PRN Reason: Nausea/Vomiting Sevelamer Carbonate (Renvela) 800 mg PO TID [facility] Last Admin: 02/17/18 21:13 Dose: 800 mg
--- NOTE | 2018-02-18 08:31 | PRG ---
DATE OF SERVICE: 02/18/2018 SERVICE: Renal medicine. SUBJECTIVE: Mr. Hernandez is a 57-year-old white male with ESRD and was admitted for right leg swellin g - negative for DVT, ?cellulitis, and also recurrent seizure. We are following him up for his hemod ialysis. I am currently scheduling him for dialysis. I have given the orders to the dialysis nurse. He is to undergo his regular 4-hour hemodialysis today. No other complaints. He is feeling better , no evidence of recurrent seizures. OBJECTIVE: VITAL SIGNS: Blood pressure is 156/72, heart rate 70, respiratory rate 18, temperature 98.8, pulse o x 97%. GENERAL: Awake, alert, comfortable, not in distress, obese. SKIN: Adequate turgor. HEENT: He has slightly pale conjunctivae, anicteric sclerae. NECK: No neck mass, no carotid bruits, no JVD. CHEST: No deformities. Lungs, clear breath sounds. HEART: Normal sinus rhythm. No murmur, no gallops, no rubs. ABDOMEN: Globular, soft, nontender, no masses. EXTREMITIES: No edema, no deformities. Right foot dressing noted. NEUROLOGICAL: Awake, alert, comfortable. No tremors, no asterixis. LABORATORY DATA: On 02/18/2018, white count 6.3, hemoglobin 9.6. Sodium 133, potassium 4.5, chlorid e 98, carbon dioxide 27, BUN 45, creatinine 6.78, glucose 90, calcium 8.0, prolactin 31.4. MEDICATIONS: On 02/18/2018, reviewed. ASSESSMENT AND PLAN: 1. End-stage renal disease, stable. We will continue current Sunday, Sunday, Sunday hemodialysis . We will do a 4-hour dialysis treatment. Maximal fluid removal only as tolerated. 2. Anemia, we will resume weekly Epogen. 3. New-onset seizure - currently on Keppra. Agree with current management.
[2018-02-18] MEDS: Amlodipine 10 MG TAB PO SCH (08:49)
[2018-02-18] MEDS: Heparin 5,000 UNITS/ML VIAL SC SCH ×2 (08:51→21:32)
[2018-02-18] MEDS: Fish Oil 1,000 MG CAP PO SCH (08:52)
[2018-02-18] MEDS: Calcium Carbonate 500 MG ChewTAB PO SCH (08:53)
[2018-02-18] MEDS: Famotidine 20 MG TAB PO SCH (08:53)
[2018-02-18] MEDS: Calcium Acetate 667 MG CAP PO SCH ×4 (08:53→21:32)
[2018-02-18] MEDS: levETIRAcetam 500 MG TAB PO SCH ×2 (08:54→21:32)
[2018-02-18] MEDS: Sevelamer Carbonate 800 MG TAB PO SCH ×3 (08:54→21:32)
[2018-02-18] MEDS: FLUoxetine HCl 20 MG CAP PO SCH (08:54)
[2018-02-18] MEDS ORDERED: Epoetin (ESRD) 20,000 UNITS/ML SC SCH (09:00)
[2018-02-18] MEDS ORDERED: HumaLOG 300 UNITS/3 ML VIAL SC PRN (09:19)
[2018-02-18 11:16] LABS: Vancomycin, Random 16.9 ug/mL (See Comment)
[2018-02-18] MEDS: Vancomycin HCl 750 MG in Sodium Chloride 0.9% 250 ML 250 ML IVPB SCH (12:42)
--- NOTE | 2018-02-18 14:12 | ADD-PRG ---
DATE OF SERVICE: 02/18/2018 ADDENDUM I am at the Dialysis Unit supervising his dialysis at the bedside. He is tolerating said treatment.
[2018-02-18] MEDS ORDERED: Amlodipine 10 MG TAB PO SCH (16:45)
--- NOTE | 2018-02-18 17:56 | PDOC.PN ---
- Subjective Encounter Start Date: 02/18/18 Encounter Start Time: 10:30 Subjective: pt up in dialysis no complains - Objective Resuscitation Status: Resuscitation Status FULL:Full Resuscitation Vital Signs & Weight: Vital Signs (12 hours) Temp Pulse Resp BP BP Pulse Ox 02/18/18 08:49 70 156/72 H 02/18/18 07:15 98.8 F 70 18 156/72 H 97 Weight Admit Weight 257 lb 4.8 oz Weight 260 lb 14.4 oz I&O: 02/17/18 02/18/18 02/19/18 06:59 06:59 06:59 Intake Total 700 Output Total 100 Balance 600 Result Diagrams: 02/18/18 04:31 02/18/18 04:31 Additional Labs: Accuchecks 02/18/18 02/18/18 02/17/18 16:54 06:30 21:02 POC Glucose 108 101 172 H Phys Exam - Physical Examination Neck: no nodes, no JVD, supple, full ROM Respiratory: no wheezing, no rales, no rhonchi, wheezing present, clear to auscultation bilateral Cardiovascular: RRR, no significant murmur, no rub, gallop, irregular Gastrointestinal: soft, non-tender, no distention, positive bowel sounds Dx/Plan (1) Cellulitis and abscess of foot Code(s): L03.119 - CELLULITIS OF UNSPECIFIED PART OF LIMB; L02.619 - CUTANEOUS ABSCESS OF UNSPECIFIED FOOT Status: Acute Comment: right foot s/p I & D (2) DM2 (diabetes mellitus, type 2) Status: Chronic Qualifiers: (3) ESRD (end stage renal disease) on dialysis Code(s): N18.6 - END STAGE RENAL DISEASE; Z99.2 - DEPENDENCE ON RENAL DIALYSIS Status: Chronic (4) HTN (hypertension) Code(s): I10 - ESSENTIAL (PRIMARY) HYPERTENSION Status: Chronic Qualifiers: - Plan pt's MRI indicated cellulitis and osteo. -: will conitnue abx for now -: pt has had seizure in the past but has been taken off meds -: will continue keppra * . Review of Systems - Review of Systems Respiratory: negative: Cough, Dry, Shortness of Breath, Hemoptysis, SOB with Excertion, Pleuritic Pain, Sputum, Wheezing Cardiovascular: negative: chest pain, palpitations, orthopnea, paroxysmal nocturnal dyspnea, edema, light headedness, other Gastrointestinal: negative: Nausea, Vomiting, Abdominal Pain, Diarrhea, Constipation, Melena, Hematochezia, Other Genitourinary: negative: Dysuria, Frequency, Incontinence, Hematuria, Retention , Other - Medications/Allergies Allergies/Adverse Reactions: Allergies Allergy/AdvReac Type Severity Reaction Status Date / Time Penicillins Allergy Severe Anaphylaxis Verified 02/06/18 21:13 piperacillin [From Zosyn] Allergy Verified 02/06/18 21:13 tazobactam [From Zosyn] Allergy Verified 02/06/18 21:13 Medications: Current Medications Acetaminophen (Tylenol) 650 mg PO Q4H PRN PRN Reason: Headache/Fever or Pain Hydrocodone Bitart/Acetaminophen ([place] 7.5/325) 1 tab PO Q4H PRN PRN Reason: Pain Amlodipine Besylate (Norvasc) 10 mg PO NOW [facility] Stop: 02/18/18 18:45 Amlodipine Besylate (Norvasc) 10 mg PO DAILY [facility] Atorvastatin Calcium (Lipitor) 10 mg PO HS [facility] Last Admin: 02/17/18 21:13 Dose: 10 mg Calcium Acetate (Phoslo) 667 mg PO QID [facility] Last Admin: 02/18/18 14:26 Dose: Not Given Calcium Carbonate (Tums) 1,500 mg PO QAM-[facility] Last Admin: 02/18/18 08:53 Dose: 1,500 mg Cholecalciferol (Vitamin D3) 2,000 units PO DAILY [facility] Last Admin: 02/18/18 08:52 Dose: Not Given Dextrose/Water (Dextrose 50%) 25 gm SLOW IVP PRN PRN PRN Reason: Hypoglycemia Epoetin Luciano (Procrit) 7,500 units SC Q7D [facility] Last Admin: 02/18/18 12:40 Dose: 7,500 units Famotidine (Pepcid) 20 mg PO DAILY [facility] Last Admin: 02/18/18 08:53 Dose: 20 mg Fish Oil (Fish Oil) 1,000 mg PO DAILY [facility] Last Admin: 02/18/18 08:52 Dose: Not Given Fluoxetine HCl (Prozac) 20 mg PO DAILY [facility] Last Admin: 02/18/18 08:54 Dose: 20 mg Glucagon (Glucagon) 1 mg IM PRN PRN PRN Reason: Hypoglycemia Heparin Sodium (Porcine) (Heparin) 5,000 units SC BID [facility] Last Admin: 02/18/18 08:51 Dose: Not Given Insulin Glargine 25 units/ (Miscellaneous Medication) 0.25 mls @ 0 mls/hr SC HS [facility] Last Admin: 02/17/18 21:13 Dose: 0.25 mls Dextrose/Water (D5w) 1,000 mls @ 0 mls/hr IV .Q0M PRN PRN Reason: Hypoglycemia Aztreonam 0.25 gm/ Sodium (Chloride) 100 mls @ 100 mls/hr IVPB 1000,2200 [facility] Last Admin: 02/18/18 12:52 Dose: Not Given Vancomycin HCl 1.5 gm/ Sodium (Chloride) 300 mls @ 200 mls/hr IVPB WILLCALL [facility] Vancomycin HCl 1.25 gm/ Sodium (Chloride) 250 mls @ 166.667 mls/hr IVPB [facility] Vancomycin HCl 1 gm/ Device 200 mls @ 200 mls/[facility] Vancomycin HCl 750 mg/ Sodium (Chloride) 250 mls @ 250 mls/hr IVPB [facility] Last Admin: 02/18/18 12:42 Dose: 250 mls Insulin Human Lispro (Humalog) 0 units SC .AGGRESSIVE SLIDING PRN PRN Reason: Aggressive Correctional Scale Last Admin: 02/17/18 18:13 Dose: 6 units Insulin Human Lispro (Humalog) 0 units SC .BEDTIME SLIDING SC PRN PRN Reason: Bedtime Correctional Scale Levetiracetam (Keppra) 500 mg PO BID [facility] Last Admin: 02/18/18 08:54 Dose: 500 mg Miscellaneous Medication (Pharmacy To Dose) 1 each IVPB DAILYPRN PRN PRN Reason: LABS Hold Vancomycin For (Level >20) 0 each FS .AT DIALYSIS [facility] Ondansetron HCl (Zofran Odt) 4 mg PO Q6H PRN PRN Reason: Nausea/Vomiting Ondansetron HCl (Zofran) 4 mg IVP Q6H PRN PRN Reason: Nausea/Vomiting Sevelamer Carbonate (Renvela) 800 mg PO TID [facility] Last Admin: 02/18/18 08:54 Dose: 800 mg Sodium Chloride (Flush - Normal Saline) 10 ml IVF Q12HR [facility] Sodium Chloride (Flush - Normal Saline) 10 ml IVF PRN PRN PRN Reason: Saline Flush
[2018-02-18] MEDS: Atorvastatin Calcium 10 MG TAB PO SCH (21:32)
[2018-02-18] MEDS: Insulin Glargine 25 UNITS in Pre-Filled Syringe 1 EACH SC SCH (21:32)
[2018-02-19 05:27] LABS: #Eosinphils 0.2 thou/uL (0.0-0.7); #Lymphocytes 2.1 thou/uL (1.20-3.40); #Monocytes 0.5 thou/uL (0.11-0.59); #Neutrophils 2.6 thou/uL (1.40-6.50); %Basophils 0.8 % (0.0-1.0); %Eosinophils 2.9 % (0.0-10.0); %Lymphocytes 38.9 % (21.0-51.0); %Monocytes 8.5 % (0.0-10.0); %Neutrophils 48.8 % (42.0-75.0); Mean Corpuscular HGB CONC 30.4 g/dL (32.0-36.0); Mean Corpuscular Hemoglobin 27.3 pg (27.0-31.0); Mean Corpuscular Volume 89.7 fL (78.0-98.0); Mean Platelet Volume 7.2 fL (7.4-10.4); Platelet Count 248 thou/uL (130-400); RBC Distribution Width 15.7 % (11.5-14.5); Red Blood Cell (RBC) Count 3.68 mill/uL (4.70-6.10); White Blood Cell (WBC) Count 5.3 thou/uL (4.8-10.8)
--- NOTE | 2018-02-19 07:44 | PRG ---
DATE OF SERVICE: 02/19/2018 SUBJECTIVE: Mr. Hernandez is a 57-year-old white male with ESRD followed by the Renal Service for his maintenance hemodialysis. He underwent hemodialysis yesterday without any problem. He was admitted for right leg swelling. MRI suggested cellulitis and osteomyelitis. 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 Currently on IV antibiotics. This also noted to have developed seizure when h e was at the ER. This morning, he voices no new complaints. He denies any chest pain or shortness o f breath. OBJECTIVE: VITAL SIGNS: Blood pressure is 163/71, heart rate 68, respiratory rate 12, temperature 98.3, pulse o x 96%. GENERAL: Noted to be awake, alert, comfortable, supine, not in distress. SKIN: Adequate turgor. HEENT: He has slightly pale conjunctivae, anicteric sclerae. NECK: No neck mass, no carotid bruits, no JVD. CHEST: No deformities. LUNGS: Clear breath sounds. HEART: Normal sinus rhythm. No murmur, no gallops, no rubs. ABDOMEN: Globular, soft, nontender, no masses. EXTREMITIES: No edema. Positive for right foot dressing. MEDICATIONS: On 02/19/2018, reviewed. LABORATORY DATA: On 02/19/2018, white count 5.3, hemoglobin 10. On 02/18/2018, sodium 133, potassiu m 4.5, chloride 98, carbon dioxide 27, BUN 45, creatinine 6.78, glucose 90, calcium 8.0. ASSESSMENT AND PLAN: 1. End-stage renal disease, stable. No indication for any emergent hemodialysis. We will continue Sunday, Sunday, Sunday dialysis. 2. Right leg osteomyelitis - on IV antibiotics. Consider reconsulting surgery. Possibility that he may recommend BKA remains. 3. Anemia, continuing weekly Epogen. 4. Seizure disorder - patient has been started on Keppra. Continue current management. We will recheck base met, CBC in a.m.
[2018-02-19] MEDS: Calcium Carbonate 500 MG ChewTAB PO SCH (09:02)
[2018-02-19] MEDS: Calcium Acetate 667 MG CAP PO SCH ×4 (09:05→20:57)
[2018-02-19] MEDS: Amlodipine 10 MG TAB PO SCH (09:05)
[2018-02-19] MEDS: Famotidine 20 MG TAB PO SCH (09:05)
[2018-02-19] MEDS: Heparin 5,000 UNITS/ML VIAL SC SCH ×2 (09:06→20:59)
[2018-02-19] MEDS: Fish Oil 1,000 MG CAP PO SCH (09:06)
[2018-02-19] MEDS: FLUoxetine HCl 20 MG CAP PO SCH (09:06)
[2018-02-19] MEDS: levETIRAcetam 500 MG TAB PO SCH ×2 (09:06→20:57)
[2018-02-19] MEDS: Sevelamer Carbonate 800 MG TAB PO SCH ×3 (09:07→20:58)
--- NOTE | 2018-02-19 12:30 | PQF ---
CLINICAL DOCUMENTATION IMPROVEMENT CLARIFICATION FORM: ICD-10 Updated PLEASE DO AN ADDENDUM TO THE PROGRESS NOTE WITH ANY DOCUMENTATION UPDATES OR ADDITIONS AND CARRY THROUGH TO DC SUMMARY. THANK YOU. DATE: 02/19/18 ATTN: Dr. Puckett Please exercise your independent, professional judgment in responding to the clarification form. Clinical indicators are provided on the bottom of this form for your review Please check appropriate box(s): [ ] Diabetes mellitus type 2 with cellulitis right foot. [ ] Diabetes mellitus type 2 not related to cellulitis right foot. [ ] Other diagnosis [ ] Unable to determine In addition, please specify: Present on Admission (POA): [ ] Yes [ ] No [ ] Unable to determine CLINICAL INDICATORS - SIGNS / SYMPTOMS / LABS PN 02/18/18: CELLULITIS AND ABSCESS OF FOOT. R FOOT DM 2 PT'S MRI INDICATED CELLULITIS AND OSTEO RISKS: H&P 02/16: HX DM 2, HTN, ESRD. R LE AMPUTATIONS AT THE TOES. X-RAY FOOT SHOWS STABLE UNUNITED CALCANEAL FRACTURE W/ SOME WORSENING OSTEOLYSIS SEEN ALONG THE PLANTAR ASPECT OF THE CALCANEUS SUSPICIOUS FOR CHANGES OF SUPERIMPOSED INFECTION. TREATMENT: ORDER 02/17: IV VANCOMYCIN ORDER 02/17: IV AZACTAM ID CONSULT 02/17. Thank you, Rosina (This form is maintained as a part of the permanent medical record) 2014 [employer]. All Rights Reserved Rosina Douglass RN, [email or web address] [email or web address] Office: [phone] [facility] INSANEIgnacio
[2018-02-19] MEDS: HumaLOG 300 UNITS/3 ML VIAL SC PRN (17:23)
[2018-02-19] MEDS: Atorvastatin Calcium 10 MG TAB PO SCH (20:57)
[2018-02-19] MEDS: Insulin Glargine 25 UNITS in Pre-Filled Syringe 1 EACH SC SCH (20:59)
--- NOTE | 2018-02-19 21:55 | CON ---
NEUROLOGY CONSULTATION DATE OF CONSULTATION: 02/19/2018 CONSULTING PHYSICIAN: Hospital Service. IMPRESSION: 1. Recurrent seizures. 2. Diabetes. 3. Hypertension. 4. End-stage renal disease. 5. Peripheral neuropathy. PLAN: 1. Keppra 500 mg twice a day. 2. Office followup. HISTORY OF PRESENT ILLNESS: Mr. Hernandez is a 57-year-old man with the above noted problems. He had a seizure about 2 years ago and was briefly treated with anticonvulsants. He had a recurren t seizure while in the hospital, being treated for problems with his foot. They start him back on Ke ppra. He had a previous MRI done in June of this year, which showed small vessel ischemic changes a nd old left cerebellar stroke. He is back to his baseline. PAST MEDICAL HISTORY: As listed above. ALLERGIES: PENICILLIN, TAZOBACTAM, and PIPERACILLIN. SOCIAL HISTORY: Unremarkable. FAMILY HISTORY: Unremarkable. MEDICATION LIST: Reviewed. REVIEW OF SYSTEMS: Otherwise, unremarkable. PHYSICAL EXAMINATION: GENERAL: He is a well-nourished, middle-aged man, in no distress. VITAL SIGNS: Stable. He is afebrile. HEENT: Within normal limits. NECK: Supple. EXTREMITIES: No cyanosis. NEUROLOGIC: He is alert and appropriate. His speech is fluent and clear. His exam is nonfocal. No abnormal movements were seen. SUMMARY: A middle-aged man with renal failure with recurrent seizure. Agree with Keppra. I would b e happy to follow up with him as an outpatient.
--- NOTE | 2018-02-19 23:09 | PDOC.PN ---
- Subjective Encounter Start Date: 02/19/18 Encounter Start Time: 11:00 - Objective Resuscitation Status: Resuscitation Status FULL:Full Resuscitation MAR Reviewed: Yes Vital Signs & Weight: Vital Signs (12 hours) Temp Pulse Resp BP BP Pulse Ox 02/19/18 19:16 98.2 F 70 18 152/72 H 94 L 02/19/18 16:00 98.6 F 71 18 145/66 H 93 L Weight Admit Weight 257 lb 4.8 oz Weight 247 lb 9 oz I&O: 02/18/18 02/19/18 02/20/18 06:59 06:59 06:59 Intake Total 700 1740 340 Output Total 100 4350 Balance 600 -2610 340 Result Diagrams: 02/19/18 04:33 02/18/18 04:31 Additional Labs: Accuchecks 02/19/18 02/19/18 02/19/18 19:19 16:04 11:20 POC Glucose 136 H 168 H 112 H 02/19/18 05:56 POC Glucose 67 L Phys Exam - Physical Examination Constitutional: NAD Respiratory: no wheezing, no rales Cardiovascular: RRR, no rub Gastrointestinal: soft, non-tender, positive bowel sounds Musculoskeletal: no edema Neurological: moves all 4 limbs Rt foot dressing + Psychiatric: A&O x 3 Dx/Plan - Plan DVT proph w/SCDs IMPRESSION/PLAN: 1. New onset Seizure Cont Keppra Await Neuro input Cont seizure precautions 1. Right foot diabetic infection with osteomyelitis (patient failed outpatient therapy) Cont Vancomycin/Azactam Monitor Vancomycin level 2. End-stage renal disease on hemodialysis. Cont dialysis per Nephrology 3. Diabetes mellitus type 2. Cont current dose of Lantus with sliding scale 4. Hypertension. Cont current meds as below 5. Peripheral vascular disease. 6. Obesity with a BMI 38.8 7. Hyperlipidemia. Cont Lipitor 8. History of cerebrovascular accident with residual left-sided weakness. 9. Anemia secondary to chronic renal disease/ Anaphylaxis to Zosyn/ Anxiety- Depression Review of Systems - Review of Systems Respiratory: negative: Cough, Dry, Shortness of Breath, Hemoptysis, SOB with Excertion, Pleuritic Pain, Sputum, Wheezing Cardiovascular: negative: chest pain, palpitations, orthopnea, paroxysmal nocturnal dyspnea, edema, light headedness, other - Medications/Allergies Allergies/Adverse Reactions: Allergies Allergy/AdvReac Type Severity Reaction Status Date / Time Penicillins Allergy Severe Anaphylaxis Verified 02/06/18 21:13 piperacillin [From Zosyn] Allergy Verified 02/06/18 21:13 tazobactam [From Zosyn] Allergy Verified 02/06/18 21:13 Medications: Current Medications Acetaminophen (Tylenol) 650 mg PO Q4H PRN PRN Reason: Headache/Fever or Pain Hydrocodone Bitart/Acetaminophen ([place] 7.5/325) 1 tab PO Q4H PRN PRN Reason: Pain Amlodipine Besylate (Norvasc) 10 mg PO DAILY [facility] Last Admin: 02/19/18 09:05 Dose: 10 mg Atorvastatin Calcium (Lipitor) 10 mg PO HS [facility] Last Admin: 02/19/18 20:57 Dose: 10 mg Calcium Acetate (Phoslo) 667 mg PO QID [facility] Last Admin: 02/19/18 20:57 Dose: 667 mg Calcium Carbonate (Tums) 1,500 mg PO QAM-WM [facility] Last Admin: 02/19/18 09:02 Dose: 1,500 mg Cholecalciferol (Vitamin D3) 2,000 units PO DAILY [facility] Last Admin: 02/19/18 09:05 Dose: 2,000 units Dextrose/Water (Dextrose 50%) 25 gm SLOW IVP PRN PRN PRN Reason: Hypoglycemia Epoetin Lucinao (Procrit) 7,500 units SC Q7D [facility] Last Admin: 02/18/18 12:40 Dose: 7,500 units Famotidine (Pepcid) 20 mg PO DAILY [facility] Last Admin: 02/19/18 09:05 Dose: 20 mg Fish Oil (Fish Oil) 1,000 mg PO DAILY [facility] Last Admin: 02/19/18 09:06 Dose: 1,000 mg Fluoxetine HCl (Prozac) 20 mg PO DAILY [facility] Last Admin: 02/19/18 09:06 Dose: 20 mg Glucagon (Glucagon) 1 mg IM PRN PRN PRN Reason: Hypoglycemia Heparin Sodium (Porcine) (Heparin) 5,000 units SC BID [facility] Last Admin: 02/19/18 20:59 Dose: 5,000 units Insulin Glargine 25 units/ (Miscellaneous Medication) 0.25 mls @ 0 mls/hr SC HS [facility] Last Admin: 02/19/18 20:59 Dose: Not Given Dextrose/Water (D5w) 1,000 mls @ 0 mls/hr IV .Q0M PRN PRN Reason: Hypoglycemia Aztreonam 0.25 gm/ Sodium (Chloride) 100 mls @ 100 mls/hr IVPB 1000,2200 [facility] Last Admin: 02/19/18 21:41 Dose: 100 mls Vancomycin HCl 1.5 gm/ Sodium (Chloride) 300 mls @ 200 mls/hr IVPB [facility] Vancomycin HCl 1.25 gm/ Sodium (Chloride) 250 mls @ 166.667 mls[facility]hr [facility] Vancomycin HCl 1 gm/ Device 200 mls @ 200 mls/hr [facility] Vancomycin HCl 750 mg/ Sodium (Chloride) 250 mls @ 250 mls/hr IVPB [facility] Last Admin: 02/18/18 12:42 Dose: 250 mls Insulin Human Lispro (Humalog) 0 units SC .AGGRESSIVE SLIDING PRN PRN Reason: Aggressive Correctional Scale Last Admin: 02/19/18 17:23 Dose: 3 units Insulin Human Lispro (Humalog) 0 units SC .BEDTIME SLIDING SC PRN PRN Reason: Bedtime Correctional Scale Levetiracetam (Keppra) 500 mg PO BID [facility] Last Admin: 02/19/18 20:57 Dose: 500 mg Miscellaneous Medication (Pharmacy To Dose) 1 each IVPB DAILYPRN PRN PRN Reason: LABS Miscellaneous Medication (Pharmacy To Dose) 1 each PO PRN PRN PRN Reason: Pharmacy to dose Hold Vancomycin For (Level >20) 0 each FS .AT DIALYSIS [facility] Ondansetron HCl (Zofran Odt) 4 mg PO Q6H PRN PRN Reason: Nausea/Vomiting Ondansetron HCl (Zofran) 4 mg IVP Q6H PRN PRN Reason: Nausea/Vomiting Sevelamer Carbonate (Renvela) 800 mg PO TID [facility] Last Admin: 02/19/18 20:58 Dose: 800 mg Sodium Chloride (Flush - Normal Saline) 10 ml IVF Q12HR [facility] Last Admin: 02/19/18 21:00 Dose: 10 ml Sodium Chloride (Flush - Normal Saline) 10 ml IVF PRN PRN PRN Reason: Saline Flush
[2018-02-20 05:29] LABS: #Eosinphils 0.1 thou/uL (0.0-0.7); #Lymphocytes 2.1 thou/uL (1.20-3.40); #Monocytes 0.5 thou/uL (0.11-0.59); #Neutrophils 2.3 thou/uL (1.40-6.50); %Basophils 0.4 % (0.0-1.0); %Eosinophils 2.9 % (0.0-10.0); %Lymphocytes 41.2 % (21.0-51.0); %Neutrophils 45.5 % (42.0-75.0); Hemoglobin 9.4 g/dL (14.0-18.0); Mean Corpuscular HGB CONC 30.8 g/dL (32.0-36.0); Mean Corpuscular Hemoglobin 27.5 pg (27.0-31.0); Mean Corpuscular Volume 89.1 fL (78.0-98.0); Platelet Count 231 thou/uL (130-400); RBC Distribution Width 15.4 % (11.5-14.5); Red Blood Cell (RBC) Count 3.41 mill/uL (4.70-6.10); White Blood Cell (WBC) Count 5.1 thou/uL (4.8-10.8)
[2018-02-20 05:55] LABS: Anion Gap 14 mmol/L (10-20); BUN (Urea Nitrogen) 38 mg/dL (8.4-25.7); Calc. Creatinine Clearance 22 mL/min (70-130); Calcium 8.2 mg/dL (7.8-10.44); Carbon Dioxide 25 mmol/L (22-29); Chloride 98 mmol/L (98-107); Estimated GFR-MDRD 10; Glucose 110 mg/dL (70-105); Potassium 4.4 mmol/L (3.5-5.1); Sodium 133 mmol/L (136-145)
[2018-02-20 08:06] LABS: Vancomycin, Random 15.5 ug/mL (See Comment)
--- NOTE | 2018-02-20 09:08 | PRG ---
DATE OF SERVICE: 02/20/2018 SERVICE: Renal Medicine. SUBJECTIVE: Mr. Hernandez is a 57-year-old male with known history of ESRD. We are following up this patient for his maintenance hemodialysis. [facility] He was admitted with right leg pain. An MRI of the right foot without contrast sugg ested evidence of multifocal osteomyelitis and osseous structures indicative of a Charcot foot. Also , noted to have a seizure episode. Neurology has evaluated the patient due to the recurrent seizures . Recommendation is to continue Keppra. No other complaints today, no chest pain or shortness of br eath. Please note, the patient is receiving IV antibiotics. PHYSICAL EXAMINATION: VITAL SIGNS: Blood pressure 155/69, heart rate 69, respiratory rate 18, temperature 98, pulse ox 94% . GENERAL EXAM: Noted to be awake, alert, comfortable, not in distress. SKIN: Adequate turgor. HEENT: He has pinkish conjunctivae, anicteric sclerae. NECK: No neck mass, no carotid bruits, no JVD. CHEST: No deformities. LUNGS: Clear breath sounds. No wheezing, no crackles. HEART: Normal sinus rhythm. No murmur, no gallops, no rubs. ABDOMEN: Globular, soft, nontender, no masses. EXTREMITIES: Right foot dressing noted. Medications of 02/20/2018 were reviewed. LABORATORY DATA: Laboratories of 02/20/2018, white count 5.1, hemoglobin 9.4. Sodium 133, potassium 4.4, chloride 98, carbon dioxide 25, BUN 38, creatinine 6.01, glucose 110, calcium 8.2. ASSESSMENT AND PLAN: 1. Chronic right foot osteomyelitis - on IV antibiotics. The patient has declined surgery in the [facility]. Continue conservative management. 2. Recurrent seizure disorder - Neurology following. 3. End-stage renal disease. Continuing Sunday, Sunday, Sunday dialysis. Tolerating said treatme nt. Plan is scheduling for his 4-hour dialysis. 4. Anemia. Continuing weekly Epogen. Agree with current management.
[2018-02-20] MEDS: Vancomycin HCl 750 MG in Sodium Chloride 0.9% 250 ML 250 ML IVPB SCH (11:50)
[2018-02-20] MEDS: Calcium Carbonate 500 MG ChewTAB PO SCH (13:37)
[2018-02-20] MEDS: Sevelamer Carbonate 800 MG TAB PO SCH ×3 (13:37→20:21)
[2018-02-20] MEDS: Calcium Acetate 667 MG CAP PO SCH ×4 (13:38→20:21)
[2018-02-20] MEDS: FLUoxetine HCl 20 MG CAP PO SCH (13:38)
[2018-02-20] MEDS: levETIRAcetam 500 MG TAB PO SCH ×2 (13:38→20:21)
[2018-02-20] MEDS: Fish Oil 1,000 MG CAP PO SCH (13:38)
[2018-02-20] MEDS: Heparin 5,000 UNITS/ML VIAL SC SCH ×2 (13:38→20:22)
[2018-02-20] MEDS: Amlodipine 10 MG TAB PO SCH (13:39)
[2018-02-20] MEDS: Famotidine 20 MG TAB PO SCH (13:42)
--- NOTE | 2018-02-20 17:59 | PDOC.PN ---
- Subjective Encounter Start Date: 02/20/18 Encounter Start Time: 16:00 Subjective: pt up in bed no complains - Objective Resuscitation Status: Resuscitation Status FULL:Full Resuscitation Vital Signs & Weight: Vital Signs (12 hours) Temp Pulse Resp BP Pulse Ox 02/20/18 15:37 98.3 F 73 20 148/60 H 02/20/18 13:43 98.3 F 73 20 185/69 H 95 02/20/18 13:39 69 02/20/18 08:00 94 L 02/20/18 07:00 98 F 69 18 155/69 H 94 L Weight Admit Weight 257 lb 4.8 oz Weight 261 lb 8.479 oz I&O: 02/19/18 02/20/18 02/21/18 06:59 06:59 06:59 Intake Total 1740 340 240 Output Total 4350 Balance -2610 340 240 Result Diagrams: 02/20/18 04:59 02/20/18 04:59 Additional Labs: Accuchecks 02/20/18 02/20/18 02/20/18 15:36 13:41 03:57 POC Glucose 162 H 83 115 H 02/19/18 02/19/18 19:19 05:56 POC Glucose 136 H 67 L Phys Exam - Physical Examination Neck: no nodes, no JVD, supple, full ROM Respiratory: no wheezing, no rales, no rhonchi, wheezing present, clear to auscultation bilateral Cardiovascular: RRR, no significant murmur, no rub, gallop, irregular Gastrointestinal: soft, non-tender, no distention, positive bowel sounds Dx/Plan (1) Cellulitis and abscess of foot Code(s): L03.119 - CELLULITIS OF UNSPECIFIED PART OF LIMB; L02.619 - CUTANEOUS ABSCESS OF UNSPECIFIED FOOT Status: Acute Comment: right foot s/p I & D (2) DM2 (diabetes mellitus, type 2) Status: Chronic Qualifiers: (3) ESRD (end stage renal disease) on dialysis Code(s): N18.6 - END STAGE RENAL DISEASE; Z99.2 - DEPENDENCE ON RENAL DIALYSIS Status: Chronic (4) HTN (hypertension) Code(s): I10 - ESSENTIAL (PRIMARY) HYPERTENSION Status: Chronic Qualifiers: - Plan will continue iv abx for now -: possible home in am * . Review of Systems - Review of Systems Respiratory: negative: Cough, Dry, Shortness of Breath, Hemoptysis, SOB with Excertion, Pleuritic Pain, Sputum, Wheezing Cardiovascular: negative: chest pain, palpitations, orthopnea, paroxysmal nocturnal dyspnea, edema, light headedness, other Gastrointestinal: negative: Nausea, Vomiting, Abdominal Pain, Diarrhea, Constipation, Melena, Hematochezia, Other - Medications/Allergies Allergies/Adverse Reactions: Allergies Allergy/AdvReac Type Severity Reaction Status Date / Time Penicillins Allergy Severe Anaphylaxis Verified 02/06/18 21:13 piperacillin [From Zosyn] Allergy Verified 02/06/18 21:13 tazobactam [From Zosyn] Allergy Verified 02/06/18 21:13 Medications: Current Medications Acetaminophen (Tylenol) 650 mg PO Q4H PRN PRN Reason: Headache/Fever or Pain Hydrocodone Bitart/Acetaminophen ([place] 7.5/325) 1 tab PO Q4H PRN PRN Reason: Pain Amlodipine Besylate (Norvasc) 10 mg PO DAILY [facility] Last Admin: 02/20/18 13:39 Dose: 10 mg Atorvastatin Calcium (Lipitor) 10 mg PO HS [facility] Last Admin: 02/19/18 20:57 Dose: 10 mg Calcium Acetate (Phoslo) 667 mg PO QID [facility] Last Admin: 02/20/18 15:23 Dose: Not Given Calcium Carbonate (Tums) 1,500 mg PO QAM[facility] Last Admin: 02/20/18 13:37 Dose: 1,500 mg Cholecalciferol (Vitamin D3) 2,000 units PO DAILY [facility] Last Admin: 02/20/18 13:37 Dose: 2,000 units Dextrose/Water (Dextrose 50%) 25 gm SLOW IVP PRN PRN PRN Reason: Hypoglycemia Epoetin Luciano (Procrit) 7,500 units SC Q7D [facility] Last Admin: 02/18/18 12:40 Dose: 7,500 units Famotidine (Pepcid) 20 mg PO DAILY [facility] Last Admin: 02/20/18 13:42 Dose: 20 mg Fish Oil (Fish Oil) 1,000 mg PO DAILY [facility] Last Admin: 02/20/18 13:38 Dose: 1,000 mg Fluoxetine HCl (Prozac) 20 mg PO DAILY [facility] Last Admin: 10/24/18 13:38 Dose: 20 mg Glucagon (Glucagon) 1 mg IM PRN PRN PRN Reason: Hypoglycemia Heparin Sodium (Porcine) (Heparin) 5,000 units SC BID [facility] Last Admin: 02/20/18 13:38 Dose: 5,000 units Insulin Glargine 25 units/ (Miscellaneous Medication) 0.25 mls @ 0 mls/hr SC HS [facility] Last Admin: 02/19/18 20:59 Dose: Not Given Dextrose/Water (D5w) 1,000 mls @ 0 mls/hr IV .Q0M PRN PRN Reason: Hypoglycemia Aztreonam 0.25 gm/ Sodium (Chloride) 100 mls @ 100 mls/hr IVPB 1000,2200 [facility] Last Admin: 02/20/18 14:16 Dose: 100 mls Vancomycin HCl 1.5 gm/ Sodium (Chloride) 300 mls @ 200 mls/hr IVPB [facility] Vancomycin HCl 1.25 gm/ Sodium (Chloride) 250 mls @ 166.667 mls/hr IVPB [facility] Vancomycin HCl 1 gm/ Device 200 mls @ 200 mls/hr IVPB [facility] Vancomycin HCl 750 mg/ Sodium (Chloride) 250 mls @ 250 mls/hr IVPB [facility] Last Admin: 02/20/18 11:50 Dose: 250 mls Insulin Human Lispro (Humalog) 0 units SC .AGGRESSIVE SLIDING PRN PRN Reason: Aggressive [facility] Scale Last Admin: 02/19/18 17:23 Dose: 3 units Insulin Human Lispro (Humalog) 0 units SC .BEDTIME SLIDING SC PRN PRN Reason: Bedtime Correctional Scale Levetiracetam (Keppra) 500 mg PO BID [facility] Last Admin: 02/20/18 13:38 Dose: 500 mg Miscellaneous Medication (Pharmacy To Dose) 1 each IVPB DAILYPRN PRN PRN Reason: LABS Miscellaneous Medication (Pharmacy To Dose) 1 each PO PRN PRN PRN Reason: Pharmacy to dose Hold Vancomycin For (Level >20) 0 each FS .AT DIALYSIS [facility] Ondansetron HCl (Zofran Odt) 4 mg PO Q6H PRN PRN Reason: Nausea/Vomiting Ondansetron HCl (Zofran) 4 mg IVP Q6H PRN PRN Reason: Nausea/Vomiting Sevelamer Carbonate (Renvela) 800 mg PO TID [facility] Last Admin: 02/20/18 13:37 Dose: 800 mg Sodium Chloride (Flush - Normal Saline) 10 ml IVF Q12HR [facility] Last Admin: 02/20/18 13:43 Dose: 10 ml Sodium Chloride (Flush - Normal Saline) 10 ml IVF PRN PRN PRN Reason: Saline Flush
--- NOTE | 2018-02-20 18:24 | PRG ---
DATE OF SERVICE: 02/20/2018 SUBJECTIVE: Mr. Hernandez does not have any pain any longer in the right leg. No rest of symptoms. No diarrhea. OBJECTIVE: VITAL SIGNS: Stable. His temperature has normalized. He does have elevation in systolic blood pressure intermittently. LUNGS: Clear lung bauman. HEART: S1, S2, regular rate. ABDOMEN: Soft. EXTREMITIES: Right foot without inflammatory changes. Right leg is less swollen than before, not tender except for very end of the Achilles area. LABORATORY DATA: White cell count 5.1, hemoglobin 9.4, platelets 231. Chemistry is not remarkable. Microbiology with negative blood cultures. ASSESSMENT AND DISCUSSION: Type 2 diabetes and neuropathy complications in both feet with various amputations, a fracture in the right heel associated with Charcot, concern with superimposed inflammatory process. Nuclear medicine study did not show uptake, but MRI was indicative of possible associated infection, naturally difficult to interpret because of the changes associated with the Charcot's arthropathy. Cannot be definitive about the presence or absence of infection, we will go ahead and treat empirically with sliding scale vancomycin given at dialysis, previous isolates included Staph aureus, beta hemolytic Streptococcus, Enterococcus, and should be able to cover those with vancomycin, sliding scale given at dialysis and date of therapy will be end of February and the labs will be done at dialysis sliding scale. [facility]
[2018-02-20] MEDS: Atorvastatin Calcium 10 MG TAB PO SCH (20:21)
[2018-02-20] MEDS: Insulin Glargine 25 UNITS in Pre-Filled Syringe 1 EACH SC SCH (20:22)
[2018-02-21] MEDS: Calcium Carbonate 500 MG ChewTAB PO SCH (08:58)
[2018-02-21] MEDS: Calcium Acetate 667 MG CAP PO SCH ×3 (08:59→15:23)
[2018-02-21] MEDS: Sevelamer Carbonate 800 MG TAB PO SCH ×2 (08:59→15:23)
[2018-02-21] MEDS: FLUoxetine HCl 20 MG CAP PO SCH (08:59)
[2018-02-21] MEDS: Heparin 5,000 UNITS/ML VIAL SC SCH (08:59)
[2018-02-21] MEDS: Fish Oil 1,000 MG CAP PO SCH (08:59)
[2018-02-21] MEDS: Amlodipine 10 MG TAB PO SCH (08:59)
[2018-02-21] MEDS: Famotidine 20 MG TAB PO SCH (08:59)
[2018-02-21] MEDS: levETIRAcetam 500 MG TAB PO SCH (09:00)
--- NOTE | 2018-02-21 09:32 | PRG ---
DATE OF SERVICE: 02/21/2018 SUBJECTIVE: Mr. Hernandez is a 57-year-old male with ESRD and followed up by the [facility] for his maintenance hemodialysis. He underwent dialysis yesterday without any difficulty. Doing w ell. He was admitted for a right foot infection/osteomyelitis. ID is following the patient with reg ards to the osteomyelitis. The patient is currently on IV antibiotics. The patient voices no new complaints. No chest pain or shortness of breath. OBJECTIVE: VITAL SIGNS: Blood pressure is 155/65, heart rate 67, respiratory rate 18, temperature 98.1, pulse o x 95%. GENERAL: Awake, alert, comfortable, not in distress. SKIN: Adequate turgor. HEENT: He has slightly pale conjunctivae, anicteric sclerae. NECK: No neck mass, no carotid bruits, no JVD. CHEST: No deformities. LUNGS: Clear breath sounds, no wheezing, no crackles. HEART: Normal sinus rhythm. No murmur, no gallops or rubs. ABDOMEN: Globular, soft, nontender. No masses. EXTREMITIES: No edema. Positive for right foot dressing. MEDICATIONS: 02/21/2018 - Reviewed. LABORATORY DATA: 02/21/2018 - Glucose 104. 02/20/2018 - Potassium 4.4, BUN 38, creatinine 6.01. Hemoglobin 9.4. ASSESSMENT AND PLAN: 1. Right foot infection - currently on IV antibiotics. ID following. 2. End-stage renal disease, stable. Continuing Sunday, Sunday, Sunday hemodialysis regimen. Flu id removal as tolerated. No changes will be made with the current dialysis orders. 3. Chronic anemia - on weekly Epogen. I agree with current management.
[2018-02-21 14:32] VITALS: BMI 38.7
[2018-02-21 16:44] VITALS: BP 174/61; TEMP 98.2
--- NOTE | 2018-02-22 03:07 | DIS ---
DATE OF ADMISSION: 02/16/2018 DATE OF DISCHARGE: 02/21/2018 DISCHARGE DIAGNOSES: As of the followin. Cellulitis and abscess of his right foot with osteomyelitis. 2. Diabetes. 3. End-stage renal disease. 4. Hypertension. HOSPITAL COURSE: The patient is a very pleasant 57-year-old male who initially presented to the hosp ital with complaints of pain in his right lower extremity. The patient has a history of hypertension and hyperlipidemia and CVA, also end-stage renal disease on dialysis who presented with right leg pa in. The patient was recently discharged from the hospital, also had undergone WBC scan which indicat ed no infection in his right leg. He also has been following with surgery as an outpatient. The pat ient while in the hospital had a seizure also. The patient was seen by Neurology, who recommended to continue with the Keppra 500 b.i.d. and to follow up on an outpatient basis. The patient underwent an MRI of the lower extremity, which indicated that he had evidence of multifocal osteomyelitis and a lso abnormal anatomy of the osseous structures indicate a Charcot foot. He also had a pathological f racture within the diffuse edema in the calcaneus which may represent an acute pathological fracture. He also had prominent cellulitis in that right foot. The patient initially had broad spectrum anti biotics. He was seen by Infectious Disease and also Nephrology. He will be discharged with IV vanco mycin and dialysis. MEDICATIONS: His home medications will be as of the following: He is going to take Renvela 800 mg t .i.d., insulin 45 units q.h.s., NovoLog t.i.d. p.r.n. per sliding scale, Prozac 20 mg daily, vitamin D3 of 2000 units p.o. daily, Tums 1500 mg p.o. daily, calcium acetate 1 cap p.o. q.i.d., atorvastatin 10 mg at bedtime, Norvasc 10 mg daily, Keppra 500 b.i.d., vancomycin 750 mg after dialysis and lisin opril 20 mg daily. PHYSICAL EXAMINATION: VITAL SIGNS: Temperature of 98.3, 70, 18, 97% on room air, 155/70. GENERAL: He is awake, alert, and oriented x3, does not appear in distress. CARDIOVASCULAR: S1, S2 present. No murmurs, rubs, or gallops. ABDOMEN: Soft, nontender, bowel sounds present x2. EXTREMITIES: No edema. Pedal pulses present x2. DISCHARGE INSTRUCTIONS: The patient will be discharged to home. He will follow up as an outpatient with Renal and also with Infectious Disease.
== END 2018-02-21 18:51 | disposition home or self-care (01) | DRG 638 ==
LOC: ERS 17:44 → 2NO 23:01 → T4-B 02-19 10:49
PROVIDERS: ADMIT Internal Medicine; ATTEND Internal Medicine
PROC: 5A1D70Z Performance of Urinary Filtration, Intermittent, Less than 6 Hours Per Day (ICD-10-PCS; principal; 2018-02-20)
DX: E11.621 Type 2 diabetes mellitus with foot ulcer (principal); L03.115 Cellulitis of right lower limb; I12.0 Hypertensive chronic kidney disease with stage 5 chronic kidney disease or end stage renal disease; L02.611 Cutaneous abscess of right foot; L97.419 Non-pressure chronic ulcer of right heel and midfoot with unspecified severity; I69.354 Hemiplegia and hemiparesis following cerebral infarction affecting left non-dominant side; I13.2 Hypertensive heart and chronic kidney disease with heart failure and with stage 5 chronic kidney disease, or end stage renal disease; M86.671 Other chronic osteomyelitis, right ankle and foot; E11.69 Type 2 diabetes mellitus with other specified complication; E11.628 Type 2 diabetes mellitus with other skin complications; Z79.4 Long term (current) use of insulin; E11.22 Type 2 diabetes mellitus with diabetic chronic kidney disease; N18.6 End stage renal disease; Z99.2 Dependence on renal dialysis; G40.909 Epilepsy, unspecified, not intractable, without status epilepticus; Z87.891 Personal history of nicotine dependence; Z88.0 Allergy status to penicillin; Z88.8 Allergy status to other drugs, medicaments and biological substances; E11.42 Type 2 diabetes mellitus with diabetic polyneuropathy; I50.9 Heart failure, unspecified; Z89.421 Acquired absence of other right toe(s); Z89.422 Acquired absence of other left toe(s); D63.1 Anemia in chronic kidney disease; E11.610 Type 2 diabetes mellitus with diabetic neuropathic arthropathy; M84.474D Pathological fracture, right foot, subsequent encounter for fracture with routine healing; E66.9 Obesity, unspecified; Z68.38 Body mass index [BMI] 38.0-38.9, adult
CPT/HCPCS: 36415; 36416; 70450; 80048; 80053; 80202; 83735; 84146; 85025; 85379; 85652; 86140; 87040; 90935; 94760; 96361; 96365; 96367; 96368; 96375; 99213; G0257; G0463; J0696; J1644; J1953; J2060; J2270; J3370; J3490; J7050; Q4081

== ENCOUNTER 2018-03-05 20:03 | Inpatient (IN) | payer MEDICARE ==
[2018-03-05] MEDS ORDERED: Acetaminophen 500 MG TAB ONE (20:27)
[2018-03-05] MEDS ORDERED: Ondansetron PF 4 MG/2 ML Vial ONE (20:27)
[2018-03-05] MEDS ORDERED: Morphine 4 MG/ML VIAL ONE (20:27)
[2018-03-05 20:48] LABS: #Eosinphils 0.3 thou/uL (0.0-0.7); #Lymphocytes 2.4 thou/uL (1.20-3.40); #Monocytes 0.6 thou/uL (0.11-0.59); #Neutrophils 4.9 thou/uL (1.40-6.50); %Basophils 0.2 % (0.0-1.0); %Eosinophils 3.4 % (0.0-10.0); %Lymphocytes 28.9 % (21.0-51.0); %Monocytes 7.5 % (0.0-10.0); %Neutrophils 60.1 % (42.0-75.0); Hemoglobin 10.9 g/dL (14.0-18.0); Mean Corpuscular HGB CONC 31.5 g/dL (32.0-36.0); Mean Corpuscular Hemoglobin 28.4 pg (27.0-31.0); Mean Platelet Volume 7.6 fL (7.4-10.4); Platelet Count 195 thou/uL (130-400); RBC Distribution Width 16.7 % (11.5-14.5); Red Blood Cell (RBC) Count 3.84 mill/uL (4.70-6.10); White Blood Cell (WBC) Count 8.2 thou/uL (4.8-10.8)
[2018-03-05] MEDS ORDERED: cefTRIAXone\\ROCEPHIN 2 GM VIAL ONE (20:57)
[2018-03-05 21:06] LABS: ALT (SGPT) 8 U/L (8-55); AST (SGOT) 15 U/L (5-34); Albumin 3.5 g/dL (3.5-5.0); Alkaline Phosphatase 186 U/L (40-150); Anion Gap 16 mmol/L (10-20); BUN (Urea Nitrogen) 43 mg/dL (8.4-25.7); Bilirubin, Total 0.6 mg/dL (0.2-1.2); Calc. Creatinine Clearance 0 mL/min (70-130); Calcium 8.3 mg/dL (7.8-10.44); Carbon Dioxide 25 mmol/L (22-29); Chloride 101 mmol/L (98-107); Estimated GFR-MDRD 10; Globulin 4.3 g/dL (2.4-3.5); Glucose 183 mg/dL (70-105); Potassium 5.1 mmol/L (3.5-5.1); Protein, Total 7.8 g/dL (6.0-8.3); Sodium 137 mmol/L (136-145)
--- NOTE | 2018-03-05 22:35 | ULT ---
RIGHT LOWER EXTREMITY DVT ULTRASOUND: 03/05/18 INDICATION: Right lower extremity pain and edema for one month. COMPARISON: Prior exam dated 02/16/18. TECHNIQUE: Lo scale, color doppler and vascular duplex with spectral analysis was performed of the deep venous structures of the right lower extremity. Common femoral vein, superficial femoral vein, popliteal ve in, posterior tibial vein, proximal greater saphenous and profunda veins were assessed. FINDINGS: Normal compression, flow, and augmentation seen within the deep venous structures of the right lower extremity. There is subcutaneous edema seen posterior to the knee as well as within the upper calf. T here is slightly prominent lymph node seen within the right inguinal region measuring 2.5 x 1 cm. IMPRESSION: 1. No evidence of DVT to the right lower extremity. 2. Soft tissue edema of the posterior right knee and upper calf. 3. Mildly prominent right inguinal lymph node. POS: [facility]
--- NOTE | 2018-03-05 22:38 | RAD ---
THREE VIEWS RIGHT FOOT: 03/05/18 INDICATION: Right foot swelling. COMPARISON: Prior radiograph of the right foot dated 02/06/18 and 02/16/18. FINDINGS: There is worsening fragmentation involving the intra-articular calcaneal fracture. There is soft tiss ue swelling. Findings are suspicious for superimposed infection in the right calcaneal fracture with destructive osteolysis. There is persistent radiopaque foreign bodies seen within the plantar soft ti ssues of the mid foot. Partial amputation of the forefoot is similar appearing to the comparison. IMPRESSION: Findings suspicious for worsening osteolysis of the calcaneal fracture likely related to superimposed infection. There is prominent soft tissue swelling of the hindfoot. There is retained radiopaque for eign bodies within plantar soft tissues of the right foot. Partial amputation of the right foot is st able. POS: [facility]
[2018-03-05] MEDS ORDERED: HumaLOG 300 UNITS/3 ML VIAL SC PRN ×3 (23:35→23:37)
[2018-03-05] MEDS ORDERED: Dextrose 5% in Water 1,000 ML IV PRN (23:37)
[2018-03-05] MEDS ORDERED: Dextrose 50% Abboject 50 ML SYRINGE SLOW IVP PRN (23:37)
[2018-03-05] MEDS ORDERED: Ondansetron PF 4 MG/2 ML Vial IVP PRN (23:37)
[2018-03-05] MEDS ORDERED: Acetaminophen 325 MG TAB PO PRN (23:37)
[2018-03-05] MEDS ORDERED: Ondansetron ODT 4 MG TAB PO PRN (23:37)
[2018-03-06] MEDS: HYDROcodone/Acetaminophen 5/325 mg Tablet PO PRN ×2 (00:24→05:32)
[2018-03-06] MEDS: Sodium Chloride 0.9% 1,000 ML IV SCH ×2 (00:27→20:10)
[2018-03-06 00:57] VITALS: BMI 40.3
[2018-03-06 04:49] LABS: #Eosinphils 0.2 thou/uL (0.0-0.7); #Lymphocytes 0.9 thou/uL (1.20-3.40); #Monocytes 0.4 thou/uL (0.11-0.59); #Neutrophils 5.3 thou/uL (1.40-6.50); %Basophils 0.4 % (0.0-1.0); %Eosinophils 2.9 % (0.0-10.0); %Lymphocytes 13.7 % (21.0-51.0); %Monocytes 5.2 % (0.0-10.0); %Neutrophils 77.7 % (42.0-75.0); Mean Corpuscular HGB CONC 30.2 g/dL (32.0-36.0); Mean Corpuscular Hemoglobin 27.3 pg (27.0-31.0); Mean Corpuscular Volume 90.4 fL (78.0-98.0); Mean Platelet Volume 8.1 fL (7.4-10.4); Platelet Count 181 thou/uL (130-400); Red Blood Cell (RBC) Count 3.64 mill/uL (4.70-6.10); White Blood Cell (WBC) Count 6.9 thou/uL (4.8-10.8)
[2018-03-06 05:09] LABS: Anion Gap 15 mmol/L (10-20); BUN (Urea Nitrogen) 46 mg/dL (8.4-25.7); Calc. Creatinine Clearance 23 mL/min (70-130); Calcium 7.7 mg/dL (7.8-10.44); Carbon Dioxide 23 mmol/L (22-29); Chloride 103 mmol/L (98-107); Estimated GFR-MDRD 10; Potassium 4.9 mmol/L (3.5-5.1); Sodium 136 mmol/L (136-145)
[2018-03-06 05:17] LABS: Glucose 57 mg/dL (70-105)
[2018-03-06 08:44] LABS: Vancomycin, Random 16.3 ug/mL (See Comment)
[2018-03-06] MEDS ORDERED: Enoxaparin Sodium 30 MG/0.3 ML SYRINGE SC SCH (09:00)
[2018-03-06] MEDS ORDERED: Vancomycin HCl 500 MG in Sodium Chloride 0.9% 100 ML IVPB SCH (09:00)
[2018-03-06] MEDS ORDERED: Vancomycin HCl 250 MG in Sodium Chloride 0.9% 100 ML IVPB SCH (09:00)
[2018-03-06] MEDS ORDERED: Meropenem 500 MG in Sodium Chloride 0.9% 100 ML IVPB SCH (09:00)
[2018-03-06] MEDS ORDERED: Enoxaparin Sodium 40 MG/0.4 ML SYRINGE SC SCH (09:00)
[2018-03-06] MEDS ORDERED: Vancomycin HCl 1 GM in Premix Bag 1 BAG IVPB SCH (09:00)
[2018-03-06] MEDS ORDERED: Epoetin (ESRD) 20,000 UNITS/ML SC SCH (09:00)
[2018-03-06] MEDS ORDERED: Famotidine/PF 20 mg/2ml Vial SLOW IVP SCH (09:00)
[2018-03-06] MEDS ORDERED: HOLD VANCOMYCIN FOR LEVEL >20 FS SCH (09:00)
[2018-03-06] MEDS ORDERED: Vancomycin HCl 750 MG in Sodium Chloride 0.9% 250 ML 250 ML IVPB SCH (09:00)
--- NOTE | 2018-03-06 09:08 | HP ---
CHIEF COMPLAINT: Right leg swelling and pain. HISTORY OF PRESENT ILLNESS: This is a 57-year-old male with past medical history of diabetes mellitu s type 2, hypertension, CVA x3 with left-sided weakness, presenting with right lower extremity swelli ng and pain. Per patient, he has had this in the past and actually I have seen the patient in the [facility] and I know the patient well. Dr. Wood is the patient's surgeon who evaluated the patient leg fo r him occasionally and the patient was recently admitted to the hospital for similar complaints of ri ght lower extremity pain. At that time, we diagnosed the patient with osteomyelitis and the patient was started on antibiotics. At this time the patient is coming in once again because the patient sta julia that he noted this morning that the right lower extremity has now been very edematous and is a lo t more painful. Therefore, he wanted to come to the hospital to be evaluated once again. Upon furth er questioning, the patient states that the pain that he has been is 8/10 and nothing seemed to make the pain better. The patient denies any fever, nausea, vomiting, chest pain, palpitations, dizziness , abdominal pain. REVIEW OF SYSTEMS: Positive for chills, right lower extremity edema. Otherwise, as documented in th e HPI. All other systems were reviewed and are negative. PAST MEDICAL HISTORY: Diabetes mellitus type 2, hypertension, hyperlipidemia, CVA x3 with left-sided weakness, renal failure on hemodialysis Sunday, Wednesdays and Fridays. PAST SURGICAL HISTORY: Right lower extremity amputations at the toes, cholecystectomy, tonsillectomy , AV fistula left arm. PSYCHIATRIC HISTORY: The patient does not have any psychiatric history. SOCIAL HISTORY: The patient is a former smoker. Patient smoked cigarettes. The patient quit more t 10 years ago. Patient lives at home with family. FAMILY HISTORY: Reviewed and noncontributory to this visit. ALLERGIES: Patient is allergic to ZOSYN and PENICILLIN. CURRENT MEDICATIONS: The patient is on calcium acetate, vitamin D3, amlodipine, [place], Tums, fluoxet ine, ____, [place] 3 NovoLog, Renvela, atorvastatin, vancomycin. PHYSICAL EXAMINATION: VITAL SIGNS: Blood pressure is 195/88, pulse of 95, respiratory rate of 22, temperature of 100.4, O2 sat of 99. GENERAL: The patient is lying in bed, does not appear to be in any acute distress. The patient is s peaking in full sentences. The patient is alert, oriented x3. HEENT: Normocephalic, atraumatic. Pupils are equal, round, and reactive to light. Extraocular move ments are intact. No scleral icterus. NECK: Trachea is midline. Full range of motion. The patient has no JVD. LUNGS: Clear to auscultation bilateral. No wheezing, no rales, no rhonchi is appreciated. CARDIOVASCULAR: Positive S1, S2, regular rate and rhythm. No murmurs, no gallops or rubs appreciate d. ABDOMEN: Obese. Abdomen is soft, nontender, nondistended. Positive bowel sounds in all quadrants. No peritoneal signs. EXTREMITIES: Upper extremity, the patient has 5/5 upper extremity strength with a left upper extremi ty fistula, good bruit and palpable thrill that can be appreciated. Lower extremities; there is a 1 x 0.5 cm ulcerative area to the volar aspect of the right posterior foot with mild surrounding erythe ma that is blanchable. There is 1 x 1 cm callus lesion to the volar aspect of the mid right foot. L eft foot with amputation of first through fifth toes. The patient does have 2+ pitting edema at the right lower extremity. There is no obvious erythema noted. The patient does have 1+ pitting edema n oted at the left lower extremity. NEUROLOGIC: Cranial nerves II-XII grossly intact. No neurologic deficits noted. SKIN: Warm, dry, and intact. IMAGING: Foot x-ray showed findings suspicious for worsening osteolysis of the calcaneal fracture, l ikely related to superimposed infection. There is prominent soft tissue swelling on the hindfoot. T here is retained radiopaque foreign bodies within the plantar soft tissues of the right foot, partial amputation of the right foot is stable. Vascular ultrasound right lateral leg shows no evidence of DVT. LABORATORY DATA: WBC is 8.2, hemoglobin is 10.9, hematocrit is 35.5, platelet count is 195. Sodium is 137, potassium 5.1, chloride 101, carbon dioxide 25, anion gap of 16, BUN of 43, creatinine 5.77, glucose 183. Lactic acid is 1.2, alkaline phosphatase is 186. Prolactin is 34.42. ASSESSMENT AND PLAN: 1. This is a 57-year-old male being admitted for right lower extremity swelling and pain most likely due to worsening osteolysis and underlying osteomyelitis. The patient was on vancomycin IV. We hav e at this point admitted the patient. We will start the patient on vancomycin and Merrem. We will c ontinue patient on this medication. We have consulted Infectious Disease physician. We will continu e to manage the patient closely. The patient will benefit from a Podiatry consult or patient might b enefit from a surgical consult with Dr. Wood. At this point, we will leave this up to the morning team to decide if they want to consult Dr. Wood. 2. History of diabetes mellitus type 2. At this point, we will continue insulin sliding scale. Con tinue the patient on his home medication. The patient currently has a sugar within acceptable range. 3. History of seizures. We will continue the patient on his seizure medications. 4. Hypertension. We will continue to monitor the patient's blood pressure and we will treat patient 's blood pressure accordingly. 5. Hyperlipidemia. Continue the patient on his home dose of atorvastatin. 6. End-stage renal disease on hemodialysis. We will continue patient on hemodialysis. 7. Deep venous thrombosis and gastrointestinal prophylaxis.
[2018-03-06] MEDS: Lisinopril 20 MG TAB PO SCH (09:30)
[2018-03-06] MEDS: levETIRAcetam 500 MG TAB PO SCH ×2 (09:31→20:48)
[2018-03-06] MEDS: Sevelamer Carbonate 800 MG TAB PO SCH ×3 (09:31→19:32)
[2018-03-06] MEDS: Famotidine 20 MG TAB PO SCH (09:31)
[2018-03-06] MEDS: Fish Oil 1,000 MG CAP PO SCH (09:31)
[2018-03-06] MEDS: Calcium Carbonate 500 MG ChewTAB PO SCH (09:31)
[2018-03-06] MEDS: Calcium Acetate 667 MG CAP PO SCH ×4 (09:32→20:48)
[2018-03-06] MEDS: FLUoxetine HCl 20 MG CAP PO SCH (09:32)
[2018-03-06] MEDS: Amlodipine 10 MG TAB PO SCH (09:32)
--- NOTE | 2018-03-06 10:39 | CON ---
DATE OF CONSULTATION: 03/06/2018 HISTORY OF PRESENT ILLNESS: Mr. Hernandez is a 70-year-old male with ESRD and was admitted fo r right leg swelling. This was associated with nightly chills and myalgia. He has a chronic osteomy elitis on the right foot. He has been advised to consider amputation of that right leg. We are rakesh bond consulted for his maintenance hemodialysis. He is due for dialysis today. REVIEW OF SYSTEMS: Positive for right leg swelling. Denies any fever, positive for chills, occasion al myalgia, no nausea, no vomiting, no headache, no diplopia, no hematochezia, no melena, no hemateme sis. No shortness of breath. Positive for right leg swelling. No melena, no dysuria, no abdominal pain. Appetite and energy level is fair. PAST MEDICAL HISTORY: 1. ESRD from diabetic nephropathy. 2. Type 2 diabetes mellitus. 3. Peripheral vascular disease. 4. Status post congestive heart failure. 5. Hypertension. 6. Status post CVA. 7. Status post multiple foot infection. 8. Seizure disorder. PAST SURGICAL HISTORY: 1. Status post I&D of a diabetic right foot/plantar abscess status post multiple toe amputations - r ight. 2. Status post cuffed hemodialysis catheter placement. 3. Status post AV fistula placement. 4. Status post left toe amputation. 5. Status post debridement of right foot ulcer. 5. Status post laparoscopic cholecystectomy. SOCIAL HISTORY: Patient lives in [place]. He is , several children. 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 No smoking, no alcohol intake, no IV drug abuse. Status post multiple blood transfusions. ALLERGIES: None. TRAUMA: None. IMMUNIZATIONS: Up to date. HOSPITALIZATIONS: Please see past medical history. FAMILY HISTORY: No family history of ESRD. MEDICATIONS: Currently on [place] 5/325 q.6 hours p.r.n., Norvasc 10 mg daily, Lipitor 10 mg at bedtim e, PhosLo 667 mg 1 tab t.i.d. with meals, Tums 1500 mg p.o. q.a.m., vitamin D3 of 2000 international units every day, Lovenox 30 mg subcu day, Pepcid 20 mg IV daily, fish oil 1000 mg every day, Prozac 2 0 mg once a day, insulin Glargine 45 units subcutaneously at bedtime, Humalog sliding scale, Keppra 5 00 mg p.o. b.i.d., Zestril 20 mg at bedtime, meropenem 500 mg IV q.12 hours, status post vancomycin, Zofran p.r.n., Renvela 800 mg 1 tab t.i.d. with meals. PHYSICAL EXAMINATION: VITAL SIGNS: Blood pressure is noted at 148/60, heart rate 73, respiratory rate 16, temperature 98.2 , pulse ox 94%. GENERAL: Awake, supine, comfortable, not in distress, morbidly obese. SKIN: Adequate turgor. HEENT: He has slightly pale conjunctivae, anicteric sclerae. NECK: No neck mass, no carotid bruits, no JVD. CHEST: No deformities. LUNGS: Clear breath sounds, no wheezing, no crackles. HEART: Normal sinus rhythm. No murmur, no gallops or rubs. ABDOMEN: Globular, soft, nontender, no masses. EXTREMITIES: Right leg swelling status post toe amputations, right. NEUROLOGIC: Awake, oriented to 3 spheres. Moving all extremities. No tremors. No asterixis. No a taxia. LABORATORIES: Of 03/06/2018: White count 6.9, hemoglobin 10. Sodium 136, potassium 4.9, chloride 1 03, carbon dioxide 23, BUN 46, creatinine 5.9, calcium 7.7. X-ray of the right foot, 03/05/2018 show s osteolysis of the calcaneal fracture -- most likely superimposed infection. ASSESSMENT AND PLAN: 1. Chronic right foot infection -- currently on IV antibiotics. Consider surgical consult for a pos sible amputation. 2. End-stage renal disease, stable. We will continue current hemodialysis regimen. He is due for a 4-hour dialysis. Again, fluid removal only as tolerated. 3. Chronic anemia secondary to end-stage renal disease -- Epogen 7500 units subcu every week.
--- NOTE | 2018-03-06 13:15 | CON ---
DATE OF CONSULTATION: 03/06/2018 REASON FOR CONSULTATION: Swelling and pain, right foot and leg. HISTORY OF PRESENT ILLNESS: This is a 57-year-old, who has had recurring admissions in a short space of time over the past few months. Most of those are related to his right foot situation. He has a history of type 2 diabetes, hypertension, hyperlipidemia, and end-stage renal disease on hemodialysis through an AV fistula, neuropathy, multiple feet complications, various amputations, and a recently identified fracture of the right calcaneus. The patient had various extremities MRIs in 09/2017. [facility] midfoot MRI showed a large plantar-based ulceration in the mid foot area without any drainable fl uid collection, and then recently on 02/17/2018, there was evidence of multifocal osteomyelitis and a bnormal anatomy of the osseous structures indicative of Charcot foot, probable pathologic fracture as sociated with diffuse edema of the calcaneus. We had a white cell tagged study before this MRI and s howed abnormal activity in the right hindfoot. The activity seemed to be localized to the soft tissu e surrounding the calcaneus without any confirmed osseous activity. In that opportunity, the radiolo gist had advised the correlation with a 3-phase bone scan. The patient was, during this last admissi on, started on broad-spectrum antimicrobial therapy, and in the face of the MRI findings, we could no t be definitive about the absence of infection, and it was decided to treat with sliding scale vancom ycin covering the organisms that had been isolated from the site previously and the end date of thera py was felt to be the end of February. So, this time, he presents with what he describes as swelling of the right lower extremity, associated with worsening pain in the right heel area. He did not hav e any fever, no change in visual symptoms, no headaches, no dyspnea or chest pain, no abdominal pain or diarrhea, no genitourinary symptoms. PAST MEDICAL HISTORY: Includes type 2 diabetes, neuropathy, multiple complications in the right and left feet. Right heel fracture with a question of osteomyelitis, which has not yet been answered suc cessfully due to limitations of the diagnostic techniques utilized. The patient has been treated emp irically as if he did have an infection. PAST SURGICAL HISTORY: As above, AV fistula, tonsillectomy, cholecystectomy. SOCIAL HISTORY: Former smoker, quit more than 10 years ago. Lives at home with family. FAMILY HISTORY: Noncontributory. ALLERGIES: Zosyn/penicillin. CURRENT MEDICATIONS: Tylenol, [place], Norvasc, Lipitor, PhosLo, Tums, Lovenox, Procrit, Pepcid, fish oil, Prozac, insulin, Keppra, lisinopril, meropenem, and vancomycin. PHYSICAL EXAMINATION: VITAL SIGNS: T-max 100.9, currently 98.6; blood pressure 150/65, pulse 73, respirations 16. GENERAL: Appears in no distress. SKIN EXAM: Again, no evidence of erythema in the right foot. No other skin areas of breakdown, no l ymphadenopathy. HEENT: Pupils are equal and reactive. Conjunctivae are normal. Oral cavity was not particularly re markable. He has quite a few missing teeth. NECK: Supple, no jugular vein distention. LUNGS: With symmetric clear breath sounds. HEART: S1 and S2, regular rate with a soft aortic murmur. ABDOMEN: Soft, not distended or tender. He got an AV fistula, which is functional. EXTREMITIES: No joint inflammatory activity outside the area of involvement. Pulses are 1+ in dorsa lis pedis. The right foot is not swollen anymore, maybe was positional related to edema. I do not s ee any evidence of erythema either. There is some [id number] tenderness on palpation of the he el area, posterior aspect. He still has somewhat rectangular-shaped 1 cm ulcerated area covered by a dark eschar at the base in the right heel region. He is able to move extremities equally. NEUROLOGIC: His cognitive function appears to be stable. He is oriented. LABORATORY DATA: White cell count 8.2 and now 6.9, hemoglobin 10.9, platelets 195 with normal differ ential. Sodium 136, creatinine 5.9, bilirubin 0.6, AST 15 and ALT 8, alkaline phosphatase was 186. CRP 3.41. This is a little bit lower than last visit. Microbiology: We have 2 sets of negative blo od cultures. The last positive samples are from November from a tissue swab with Staphylococcus aureus , which was methicillin susceptible. He has three of those samples positive for the same organism. At this time, we will have a repeat foot x-ray from 03/05/2018. This demonstrates fragmentation invo lving the intra-articular calcaneal fracture, soft tissue swelling, possible superimposed infection o f the right calcaneal fracture with destructive osteolysis. ASSESSMENT: Type 2 diabetes, neuropathy, multiple complications in right and left feet, calcaneus fr acture on right side with equivocal findings in relationship to the presence of infection, although t here are some suspicious findings in the latest imaging studies that were performed. DISCUSSION: The options for management at this point would be, 1. Conservative, continuing vancomycin, maybe adding a broader spectrum coverage to include anaerobe s and gram negatives. This would require placement of a Red catheter or we could switch to oral Cipro plus Flagyl instead, which probably would be my choice. The other option would be to have Radi trentogy stick a needle there under anesthesia. We will have Orthopedic Surgery do that and try to obta in some fluid for cultures. The patient has been on antimicrobials and the yield of such test would probably be low. It is always possible that he does not have an infection in the site and that this is all result of Charcot's arthropathy with fractures. We will complete the workup with a triple-pha se study, a bone scan that is of the right foot and then go forward according to the results. If thi s scan does not show bone uptake, then we may consider withholding antimicrobial therapy and then hav ing Orthopedic Surgery or Radiology do a percutaneous aspirate for cultures.
[2018-03-06 14:25] LABS: HBSAg Index 0.19 S/CO (0-0.99); Hep B Surf Ag Non-Reactive S/CO (NonReactive)
[2018-03-06] MEDS ORDERED: metroNIDAZOLE 250 MG TAB PO SCH (15:00)
--- NOTE | 2018-03-06 17:10 | PDOC.PN ---
- Subjective Encounter Start Date: 03/06/18 Encounter Start Time: 12:00 Patient seen and examined for diabetic foot infection. No fever/chills. Pain controlled. No new complaints. No overnight events - Objective Resuscitation Status: Resuscitation Status FULL:Full Resuscitation MAR Reviewed: Yes Vital Signs & Weight: Vital Signs (12 hours) Temp Pulse Resp BP Pulse Ox 03/06/18 11:53 98.6 F 73 16 150/65 H 91 L 03/06/18 09:32 73 94 L 03/06/18 07:56 98.3 F 73 16 148/60 H 94 L Weight Weight 257 lb 6.4 oz I&O: 03/05/18 03/06/18 03/07/18 06:59 06:59 06:59 Intake Total 1225 Balance 1225 Result Diagrams: 03/06/18 04:31 03/06/18 04:31 Additional Labs: Accuchecks 03/06/18 03/06/18 03/06/18 10:29 06:31 05:55 POC Glucose 103 93 84 EKG Reviewed by me: Yes (Tele SR) Phys Exam - Physical Examination Constitutional: NAD Respiratory: no wheezing, no rhonchi Cardiovascular: RRR, no rub Gastrointestinal: soft, non-tender, positive bowel sounds Musculoskeletal: no edema Rt foot dressing + Dx/Plan - Plan DVT proph w/heparin, DVT proph w/SCDs 1. Right foot diabetic infection with suspected osteomyelitis (patient failed outpatient therapy) Cont Vancomycin/Cipro/Flagyl Monitor Vancomycin level Await Bone scan 2. End-stage renal disease on hemodialysis. Cont dialysis per Nephrology 3. Diabetes mellitus type 2 with Hypoglycemia Cont sliding scale Reduce Lantus dose 4. Hypertension. Cont current meds as below 5. Peripheral vascular disease. 6. Obesity with a BMI 38.8 7. Hyperlipidemia. Cont Lipitor 8. History of cerebrovascular accident with residual left-sided weakness. 9. Anemia secondary to chronic renal disease/ Anaphylaxis to Zosyn/ Anxiety- Depression/ Seizure disorder Review of Systems - Review of Systems Respiratory: negative: Cough, Dry, Shortness of Breath, Hemoptysis, SOB with Excertion, Pleuritic Pain, Sputum, Wheezing Cardiovascular: negative: chest pain, palpitations, orthopnea, paroxysmal nocturnal dyspnea, edema, light headedness, other - Medications/Allergies Allergies/Adverse Reactions: Allergies Allergy/AdvReac Type Severity Reaction Status Date / Time Penicillins Allergy Severe Anaphylaxis Verified 02/06/18 21:13 piperacillin [From Zosyn] Allergy Severe Verified 03/06/18 01:02 tazobactam [From Zosyn] Allergy Severe Verified 03/06/18 01:02 Medications: Current Medications Acetaminophen (Tylenol) 650 mg PO Q4H PRN PRN Reason: Headache/Fever/Mild Pain (1-3) Last Admin: 03/06/18 00:24 Dose: 650 mg Hydrocodone Bitart/Acetaminophen ([place] 5/325) 1 tab PO Q4H PRN PRN Reason: Moderate Pain (4-6) Last Admin: 03/06/18 05:32 Dose: 1 tab Amlodipine Besylate (Norvasc) 10 mg PO DAILY [facility] Last Admin: 03/06/18 09:32 Dose: 10 mg Atorvastatin Calcium (Lipitor) 10 mg PO HS [facility] Calcium Acetate (Phoslo) 667 mg PO QID-[facility] Last Admin: 03/06/18 12:21 Dose: 667 mg Calcium Carbonate (Tums) 1,500 mg PO QAM-[facility] Last Admin: 03/06/18 09:31 Dose: 1,500 mg Cholecalciferol (Vitamin D3) 2,000 units PO DAILY [facility] Last Admin: 03/06/18 09:32 Dose: 2,000 units Ciprofloxacin (Cipro) 250 mg PO BID@0600,2000 [facility] Dextrose/Water (Dextrose 50%) 25 gm SLOW IVP PRN PRN PRN Reason: Hypoglycemia Epoetin Luciano (Procrit) 7,500 units SC Q7D [facility] Last Admin: 03/06/18 10:09 Dose: 7,500 units Famotidine (Pepcid) 20 mg PO QAM [facility] Last Admin: 03/06/18 09:31 Dose: 20 mg Fish Oil (Fish Oil) 1,000 mg PO DAILY [facility] Last Admin: 03/06/18 09:31 Dose: 1,000 mg Fluoxetine HCl (Prozac) 20 mg PO DAILY [facility] Last Admin: 03/06/18 09:32 Dose: 20 mg Glucagon (Glucagon) 1 mg IM PRN PRN PRN Reason: Hypoglycemia Heparin Sodium (Porcine) (Heparin) 5,000 units SC BID [facility] Sodium Chloride (Normal Saline 0.9%) 1,000 mls @ 80 mls/hr IV .[id number] [facility] Last Admin: 03/06/18 00:27 Dose: 1,000 mls Dextrose/Water (D5w) 1,000 mls @ 0 mls/hr IV .Q0M PRN PRN Reason: Hypoglycemia Vancomycin HCl 1 gm/ Device 200 mls @ 200 mls/hr IVPB WILLCALL [facility] Vancomycin HCl 750 mg/ Sodium (Chloride) 250 mls @ 250 mls/hr IVPB [facility] Vancomycin HCl 500 mg/ Sodium (Chloride) 100 mls @ 100 mls/hr IVPB [facility] Vancomycin HCl 250 mg/ Sodium (Chloride) 100 mls @ 100 mls/hr IVPB [facility] Last Admin: 03/06/18 17:04 Dose: 100 mls Insulin Glargine 15 units/ (Miscellaneous Medication) 0.15 mls @ 0 mls/hr SC HS HERI Insulin Glargine 15 units/ (Miscellaneous Medication) 0.15 mls @ 0 mls/hr SC QAM [facility] Insulin Human Lispro (Humalog) 0 units SC .MILD SLIDING SCALE PRN PRN Reason: Mild Correctional Scale Insulin Human Lispro (Humalog) 0 units SC .BEDTIME SLIDING SC PRN PRN Reason: Bedtime Correctional Scale Levetiracetam (Keppra) 500 mg PO BID [facility] Last Admin: 03/06/18 09:31 Dose: 500 mg Lisinopril (Zestril) 20 mg PO DAILY [facility] Last Admin: 03/06/18 09:30 Dose: 20 mg Metronidazole (Flagyl) 250 mg PO 0200,1000,1800 [facility] Miscellaneous Medication (Pharmacy To Dose) 1 each IVPB PRN PRN PRN Reason: Pharmacy to dose Hold Vancomycin For (Level >20) 0 each FS .AT DIALYSIS [facility] Ondansetron HCl (Zofran Odt) 4 mg PO Q6H PRN PRN Reason: Nausea/Vomiting Ondansetron HCl (Zofran) 4 mg IVP Q6H PRN PRN Reason: Nausea/Vomiting Sevelamer Carbonate (Renvela) 800 mg PO TID-[facility] Last Admin: 03/06/18 12:21 Dose: 800 mg Sodium Chloride (Flush - Normal Saline) 10 ml IVF Q12HR PRN PRN Reason: Saline Flush Sodium Chloride (Flush - Normal Saline) 10 ml IVF PRN PRN PRN Reason: Saline Flush
[2018-03-06] MEDS: metroNIDAZOLE 250 MG TAB PO SCH (19:32)
[2018-03-06] MEDS: Atorvastatin Calcium 10 MG TAB PO SCH (20:48)
[2018-03-06] MEDS: Insulin Glargine 10 UNITS in Pre-Filled Syringe SC SCH (20:52)
[2018-03-06] MEDS ORDERED: Insulin Glargine 15 UNITS in Pre-Filled Syringe SC SCH (21:00)
[2018-03-06] MEDS ORDERED: INSULIN GLARGINE HUM REC ANLOG SQ SCH (21:00)
[2018-03-06] MEDS ORDERED: [UNRECOGNIZED DRUG - OTHER] SQ SCH (21:00)
[2018-03-06] MEDS ORDERED: Insulin Glargine 45 UNITS in Pre-Filled Syringe 1 EACH SC SCH (21:00)
[2018-03-06] MEDS: Cipro 250 MG TAB PO SCH (21:04)
[2018-03-07] MEDS: metroNIDAZOLE 250 MG TAB PO SCH ×3 (02:19→17:20)
[2018-03-07] MEDS: Cipro 250 MG TAB PO SCH ×2 (05:57→20:59)
[2018-03-07] MEDS: Lisinopril 20 MG TAB PO SCH (08:45)
[2018-03-07] MEDS: Insulin Glargine 10 UNITS in Pre-Filled Syringe SC SCH ×2 (08:45→21:00)
[2018-03-07] MEDS: Amlodipine 10 MG TAB PO SCH (08:45)
[2018-03-07] MEDS: Calcium Carbonate 500 MG ChewTAB PO SCH (08:46)
[2018-03-07] MEDS: Sevelamer Carbonate 800 MG TAB PO SCH ×3 (08:46→17:20)
[2018-03-07] MEDS: levETIRAcetam 500 MG TAB PO SCH ×2 (08:47→20:59)
[2018-03-07] MEDS: Calcium Acetate 667 MG CAP PO SCH ×4 (08:47→20:59)
[2018-03-07] MEDS: Fish Oil 1,000 MG CAP PO SCH (08:47)
[2018-03-07] MEDS: FLUoxetine HCl 20 MG CAP PO SCH (08:48)
[2018-03-07] MEDS: Heparin 5,000 UNITS/ML VIAL SC SCH ×2 (08:48→20:59)
[2018-03-07] MEDS: Famotidine 20 MG TAB PO SCH (08:48)
[2018-03-07] MEDS ORDERED: Insulin Glargine 15 UNITS in Pre-Filled Syringe SC SCH (09:00)
--- NOTE | 2018-03-07 17:41 | PRG ---
DATE OF SERVICE: 03/07/2018 SUBJECTIVE: Mr. Hernandez was admitted for right leg swelling and possible foot infection. ID has tomeka luated this patient. Recommendations have been made and patient is currently on antibiotics. We are approaching conservative management with this patient since he is not coming to pass interested in p roceeding with any surgery. We are following up this patient for his maintenance hemodialysis. He u nderwent dialysis yesterday without any difficulty. No complaints today, no complaints of chest pain , shortness of breath. OBJECTIVE: VITAL SIGNS: Blood pressure is 167/79, heart rate 77, respiratory rate 20, temperature 98.7, pulse o x 97%. GENERAL: Awake, alert, comfortable, not in distress. SKIN: Adequate turgor. HEENT: He has slightly pale conjunctivae, anicteric sclerae. NECK: No neck mass, no carotid bruits, no JVD. CHEST: No deformities. LUNGS: Clear breath sounds. No wheezing, no crackles. HEART: Normal sinus rhythm. No murmur, no gallops or rubs. ABDOMEN: Globular, soft, nontender, no masses. EXTREMITIES: Positive for right foot dressing. No edema. MEDICATIONS: Of 03/07/2018 reviewed. LABORATORY: Of 03/06/2018: White count 6.9, hemoglobin 10. On 03/07/2018, glucose 77. On 03/06/20 18: Sodium 136, potassium 4.9, chloride 103, carbon dioxide 23, BUN is 46, creatinine 5.9, calcium 7 .7, prolactin 34.42. ASSESSMENT AND PLAN: 1. Right foot infection. Currently on antibiotics. ID following. 2. Anemia, continuing weekly Epogen. 3. End-stage renal disease, stable. We will continue current hemodialysis regimen. Again, fluid re moval only as tolerated by the patient. He is doing well with the current dialysis regimen.
[2018-03-07] MEDS: Atorvastatin Calcium 10 MG TAB PO SCH (20:59)
--- NOTE | 2018-03-07 21:05 | PDOC.PN ---
- Subjective Encounter Start Date: 03/07/18 Encounter Start Time: 08:30 Patient seen and examined for Diabetic foot infection. No new complaints. No overnight events - Objective Resuscitation Status: Resuscitation Status FULL:Full Resuscitation Vital Signs & Weight: Vital Signs (12 hours) Temp Pulse Resp BP Pulse Ox 03/07/18 19:38 99.2 F 73 18 169/74 H 97 03/07/18 16:00 98.7 F 77 20 167/79 H 97 03/07/18 11:02 98.8 F 69 20 161/74 H 94 L Weight Weight 257 lb 6.4 oz I&O: 03/06/18 03/07/18 03/08/18 06:59 06:59 06:59 Intake Total 1225 380 Balance 1225 380 Result Diagrams: 03/08/18 04:22 03/08/18 04:22 Additional Labs: Accuchecks 03/07/18 03/07/18 03/07/18 16:07 11:05 03:56 POC Glucose 89 77 145 H 03/07/18 03/06/18 03/06/18 02:19 21:00 19:47 POC Glucose 175 H 193 H 117 H Phys Exam - Physical Examination Constitutional: NAD Respiratory: no wheezing, no rhonchi Cardiovascular: RRR, no rub Gastrointestinal: soft, non-tender, positive bowel sounds Musculoskeletal: no edema Rt foot dressing + Dx/Plan - Plan DVT proph w/heparin, DVT proph w/SCDs 1. Right foot diabetic infection with suspected osteomyelitis (patient failed outpatient therapy) Cont Vancomycin/Cipro/Flagyl, Monitor Vancomycin level Await Bone scan 2. End-stage renal disease on hemodialysis. Dialysis per Nephrology 3. Diabetes mellitus type 2 with Hypoglycemia Cont sliding scale Reduce Lantus dose to 10 unit BID from 45 units daily 4. Hypertension. Cont current meds as below 5. Peripheral vascular disease. 6. Obesity with a BMI 38.8 7. Hyperlipidemia. Cont Lipitor 8. History of cerebrovascular accident with residual left-sided weakness. 9. Anemia secondary to chronic renal disease/ Anaphylaxis to Zosyn/ Anxiety- Depression/ Seizure disorder Review of Systems - Review of Systems Respiratory: negative: Cough, Dry, Shortness of Breath, Hemoptysis, SOB with Excertion, Pleuritic Pain, Sputum, Wheezing Cardiovascular: negative: chest pain, palpitations, orthopnea, paroxysmal nocturnal dyspnea, edema, light headedness, other - Medications/Allergies Allergies/Adverse Reactions: Allergies Allergy/AdvReac Type Severity Reaction Status Date / Time Penicillins Allergy Severe Anaphylaxis Verified 02/06/18 21:13 piperacillin [From Zosyn] Allergy Severe Verified 03/06/18 01:02 tazobactam [From Zosyn] Allergy Severe Verified 03/06/18 01:02 Medications: Current Medications Acetaminophen (Tylenol) 650 mg PO Q4H PRN PRN Reason: Headache/Fever/Mild Pain (1-3) Last Admin: 03/06/18 00:24 Dose: 650 mg Hydrocodone Bitart/Acetaminophen ([place] 5/325) 1 tab PO Q4H PRN PRN Reason: Moderate Pain (4-6) Last Admin: 03/06/18 05:32 Dose: 1 tab Amlodipine Besylate (Norvasc) 10 mg PO DAILY [facility] Last Admin: 03/07/18 08:45 Dose: 10 mg Atorvastatin Calcium (Lipitor) 10 mg PO HS [facility] Last Admin: 03/07/18 20:59 Dose: 10 mg Calcium Acetate (Phoslo) 667 mg PO QID-[facility] Last Admin: 03/07/18 20:59 Dose: 667 mg Calcium Carbonate (Tums) 1,500 mg PO QAM-[facility] Last Admin: 03/07/18 08:46 Dose: 1,500 mg Cholecalciferol (Vitamin D3) 2,000 units PO DAILY [facility] Last Admin: 03/07/18 08:47 Dose: 2,000 units Ciprofloxacin (Cipro) 250 mg PO BID@0600,2000 [facility] Last Admin: 03/07/18 20:59 Dose: 250 mg Dextrose/Water (Dextrose 50%) 25 gm SLOW IVP PRN PRN PRN Reason: Hypoglycemia Epoetin Luciano (Procrit) 7,500 units SC Q7D [facility] Last Admin: 03/06/18 10:09 Dose: 7,500 units Famotidine (Pepcid) 20 mg PO QAM [facility] Last Admin: 03/07/18 08:48 Dose: Not Given Fish Oil (Fish Oil) 1,000 mg PO DAILY [facility] Last Admin: 03/07/18 08:47 Dose: 1,000 mg Fluoxetine HCl (Prozac) 20 mg PO DAILY [facility] Last Admin: 11/08/18 08:48 Dose: 20 mg Glucagon (Glucagon) 1 mg IM PRN PRN PRN Reason: Hypoglycemia Heparin Sodium (Porcine) (Heparin) 5,000 units SC BID [facility] Last Admin: 03/07/18 20:59 Dose: 5,000 units Dextrose/Water (D5w) 1,000 mls @ 0 mls/hr IV .Q0M PRN PRN Reason: Hypoglycemia Vancomycin HCl 1 gm/ Device 200 mls @ 200 mls/hr IVPB [facility] Vancomycin HCl 750 mg/ Sodium (Chloride) 250 mls @ 250 mls/hr IVPB [facility] Vancomycin HCl 500 mg/ Sodium (Chloride) 100 mls @ 100 mls/hr IVPB [facility] Vancomycin HCl 250 mg/ Sodium (Chloride) 100 mls @ 100 mls/hr IVPB [facility] Last Admin: 03/06/18 17:04 Dose: 100 mls Insulin Glargine 10 units/ (Miscellaneous Medication) 0.1 mls @ 0 mls/hr SC BID [facility] Last Admin: 03/07/18 21:00 Dose: Not Given Insulin Human Lispro (Humalog) 0 units SC .MILD SLIDING SCALE PRN PRN Reason: Mild Correctional Scale Insulin Human Lispro (Humalog) 0 units SC .BEDTIME SLIDING SC PRN PRN Reason: Bedtime Correctional Scale Levetiracetam (Keppra) 500 mg PO BID [facility] Last Admin: 03/07/18 20:59 Dose: 500 mg Lisinopril (Zestril) 20 mg PO DAILY [facility] Last Admin: 03/07/18 08:45 Dose: 20 mg Metronidazole (Flagyl) 250 mg PO 0200,1000,1800 [facility] Last Admin: 03/07/18 17:20 Dose: 250 mg Miscellaneous Medication (Pharmacy To Dose) 1 each IVPB PRN PRN PRN Reason: Pharmacy to dose Hold Vancomycin For (Level >20) 0 each FS .AT DIALYSIS [facility] Ondansetron HCl (Zofran Odt) 4 mg PO Q6H PRN PRN Reason: Nausea/Vomiting Ondansetron HCl (Zofran) 4 mg IVP Q6H PRN PRN Reason: Nausea/Vomiting Sevelamer Carbonate (Renvela) 800 mg PO TID-[facility] Last Admin: 03/07/18 17:20 Dose: 800 mg Sodium Chloride (Flush - Normal Saline) 10 ml IVF Q12HR PRN PRN Reason: Saline Flush Sodium Chloride (Flush - Normal Saline) 10 ml IVF PRN PRN PRN Reason: Saline Flush
[2018-03-08] MEDS: metroNIDAZOLE 250 MG TAB PO SCH ×3 (01:35→18:00)
[2018-03-08] MEDS: Cipro 250 MG TAB PO SCH ×2 (05:08→20:36)
[2018-03-08 05:25] LABS: #Basophils 0.1 thou/uL (0.0-0.2); #Eosinphils 0.3 thou/uL (0.0-0.7); #Lymphocytes 2.2 thou/uL (1.20-3.40); #Monocytes 0.6 thou/uL (0.11-0.59); #Neutrophils 3.8 thou/uL (1.40-6.50); %Basophils 0.8 % (0.0-1.0); %Eosinophils 3.7 % (0.0-10.0); %Lymphocytes 31.5 % (21.0-51.0); %Monocytes 8.8 % (0.0-10.0); %Neutrophils 55.3 % (42.0-75.0); Hemoglobin 10.8 g/dL (14.0-18.0); Mean Corpuscular HGB CONC 29.9 g/dL (32.0-36.0); Mean Corpuscular Hemoglobin 26.7 pg (27.0-31.0); Mean Corpuscular Volume 89.4 fL (78.0-98.0); Mean Platelet Volume 8.2 fL (7.4-10.4); Platelet Count 200 thou/uL (130-400); RBC Distribution Width 16.9 % (11.5-14.5); Red Blood Cell (RBC) Count 4.05 mill/uL (4.70-6.10); White Blood Cell (WBC) Count 6.9 thou/uL (4.8-10.8)
[2018-03-08 05:35] LABS: Anion Gap 15 mmol/L (10-20); BUN (Urea Nitrogen) 39 mg/dL (8.4-25.7); Calc. Creatinine Clearance 23 mL/min (70-130); Calcium 8.4 mg/dL (7.8-10.44); Carbon Dioxide 26 mmol/L (22-29); Chloride 98 mmol/L (98-107); Estimated GFR-MDRD 10; Potassium 5.3 mmol/L (3.5-5.1); Sodium 134 mmol/L (136-145)
[2018-03-08 05:45] LABS: Glucose 53 mg/dL (70-105)
[2018-03-08] MEDS: Heparin 5,000 UNITS/ML VIAL SC SCH ×2 (08:47→20:35)
[2018-03-08] MEDS: Fish Oil 1,000 MG CAP PO SCH (08:47)
[2018-03-08] MEDS: Calcium Carbonate 500 MG ChewTAB PO SCH (08:47)
[2018-03-08] MEDS: FLUoxetine HCl 20 MG CAP PO SCH (08:48)
[2018-03-08] MEDS: Lisinopril 20 MG TAB PO SCH (08:48)
[2018-03-08] MEDS: levETIRAcetam 500 MG TAB PO SCH ×2 (08:49→20:36)
[2018-03-08] MEDS: Amlodipine 10 MG TAB PO SCH (08:49)
[2018-03-08] MEDS: Calcium Acetate 667 MG CAP PO SCH ×4 (08:49→20:36)
[2018-03-08] MEDS: Famotidine 20 MG TAB PO SCH (08:49)
[2018-03-08] MEDS: Sevelamer Carbonate 800 MG TAB PO SCH ×3 (08:50→18:00)
[2018-03-08 13:11] LABS: Vancomycin, Trough 12.5 ug/mL
--- NOTE | 2018-03-08 14:11 | NM ---
RADIONUCLIDE 3 PHASE BONE SCAN OF THE FEET: HISTORY: Osteomyelitis. COMPARISON: Prior radiograph, MRI, and white blood cell scans. FINDINGS: Blood flow and pool images show markedly increased uptake about the right foot compared to the left. The blood pool plantar images best show uptake to be concentrated in the thickened soft tissues abou t the hind foot. Delayed images show markedly increased uptake in the calcaneus and posterior bones of the mid foot. Talus is also likely involved. Whole body delayed images show degenerative-type uptake at the shoulders and sternoclavicular joints. IMPRESSION: Abnormal uptake in the soft tissues and bones about the right hind foot. When correlating all the fi ndings, they are consistent with inflammation and infection of the bones and soft tissues of the righ t hind foot. POS: [facility]
--- NOTE | 2018-03-08 15:45 | PRG ---
DATE OF SERVICE: 03/08/2018 SUBJECTIVE: Minimal pain in the right foot. No respiratory symptoms or abdominal pain. No diarrhea. Being dialyzed at this time. OBJECTIVE: VITAL SIGNS: Temperature max 98.4-99.2, blood pressure 170/75, pulse 77, O2 saturation 97%. GENERAL: Appears in no distress. LUNGS: Clear. HEART: S1, S2 with regular rate. ABDOMEN: Soft, not distended. EXTREMITIES: Right foot with mild to moderate swelling, but no erythema, no drainage, no tenderness on palpation at this time. LABORATORY DATA: White cell count 6.9, hemoglobin 10.8, platelets 200, normal differential. Sodium 134, creatinine 5.8, bilirubin 0.6, AST 15, ALT 8. Microbiology with negative blood cultures thus far. Nuclear medicine scan was completed the triple phase to compare with the ceretec study and it showed abnormal uptake in soft tissues and bones about the right hand and foot. The overall impression is that this correlates with likely inflammation and infection in both bones and soft tissues. ASSESSMENT AND DISCUSSION: Type 2 diabetes, neuropathy, various complications in right and left heel with amputations, calcaneus fracture, and concern with superimposed infection. In the face of all the new imaging studies, we will continue treating him with vancomycin and oral Cipro and Flagyl, dose adjusted for renal function. Date of therapy will be April 20, 2018. Weekly labs include CBC, CRP. Vancomycin levels to be done at dialysis following the sliding scale protocol. The Flagyl should be discontinued around April 12, 2018. Ciprofloxacin goal dose adjusted and vancomycin sliding scale to continue until April 20, 2018. MTDD
--- NOTE | 2018-03-08 20:34 | PDOC.PN ---
- Subjective Encounter Start Date: 03/08/18 Encounter Start Time: 13:00 Patient seen and examined for diabetic foot infection.Mild Rt foot discomfort. No new complaints. No overnight events - Objective Resuscitation Status: Resuscitation Status FULL:Full Resuscitation MAR Reviewed: Yes Vital Signs & Weight: Vital Signs (12 hours) Temp Pulse Resp BP BP Pulse Ox 03/08/18 20:00 98.6 F 74 20 161/62 H 94 L 03/08/18 08:49 77 172/75 H 03/08/18 08:48 172/75 H Weight Weight 257 lb 6.4 oz I&O: 03/07/18 03/08/18 03/09/18 06:59 06:59 06:59 Intake Total 380 600 Balance 380 600 Result Diagrams: 03/08/18 04:22 03/08/18 04:22 Additional Labs: Accuchecks 03/08/18 03/08/18 03/08/18 20:00 12:18 05:10 POC Glucose 168 H 90 101 03/08/18 03/07/18 04:06 19:41 POC Glucose 59 L* 100 Phys Exam - Physical Examination Constitutional: NAD Respiratory: no wheezing, no rhonchi Cardiovascular: RRR, no rub Gastrointestinal: soft, positive bowel sounds Musculoskeletal: edema present Neurological: moves all 4 limbs Dx/Plan - Plan DVT proph w/heparin, DVT proph w/SCDs 1. Right foot diabetic infection with suspected osteomyelitis (patient failed outpatient therapy) Cont Vancomycin/Cipro/Flagyl, Monitor Vancomycin level Await Bone scan, ID following, Consult Wound care 2. End-stage renal disease on hemodialysis. Dialysis per Nephrology 3. Diabetes mellitus type 2 with Hypoglycemia Cont sliding scale Hold Lantus due to persistent hypoglucemia 4. Hypertension. Cont current meds as below 5. Peripheral vascular disease. 6. Obesity with a BMI 38.8 7. Hyperlipidemia. Cont Statins 8. History of cerebrovascular accident with residual left-sided weakness. 9. Anemia secondary to chronic renal disease/ Anaphylaxis to Zosyn/ Anxiety- Depression/ Seizure disorder Review of Systems - Review of Systems Respiratory: negative: Cough, Dry, Shortness of Breath, Hemoptysis, SOB with Excertion, Pleuritic Pain, Sputum, Wheezing Cardiovascular: negative: chest pain, palpitations, orthopnea, paroxysmal nocturnal dyspnea, edema, light headedness, other - Medications/Allergies Allergies/Adverse Reactions: Allergies Allergy/AdvReac Type Severity Reaction Status Date / Time Penicillins Allergy Severe Anaphylaxis Verified 02/06/18 21:13 piperacillin [From Zosyn] Allergy Severe Verified 03/06/18 01:02 tazobactam [From Zosyn] Allergy Severe Verified 03/06/18 01:02 Medications: Current Medications Acetaminophen (Tylenol) 650 mg PO Q4H PRN PRN Reason: Headache/Fever/Mild Pain (1-3) Last Admin: 03/06/18 00:24 Dose: 650 mg Hydrocodone Bitart/Acetaminophen ([place] 5/325) 1 tab PO Q4H PRN PRN Reason: Moderate Pain (4-6) Last Admin: 03/06/18 05:32 Dose: 1 tab Amlodipine Besylate (Norvasc) 10 mg PO DAILY [facility] Last Admin: 03/08/18 08:49 Dose: 10 mg Atorvastatin Calcium (Lipitor) 10 mg PO HS [facility] Last Admin: 03/07/18 20:59 Dose: 10 mg Calcium Acetate (Phoslo) 667 mg PO QID-[facility] Last Admin: 03/08/18 18:00 Dose: 667 mg Calcium Carbonate (Tums) 1,500 mg PO QAM-[facility] Last Admin: 03/08/18 08:47 Dose: 1,500 mg Cholecalciferol (Vitamin D3) 2,000 units PO DAILY [facility] Last Admin: 03/08/18 08:48 Dose: 2,000 units Ciprofloxacin (Cipro) 250 mg PO BID@0600,2000 [facility] Last Admin: 03/08/18 05:08 Dose: 250 mg Dextrose/Water (Dextrose 50%) 25 gm SLOW IVP PRN PRN PRN Reason: Hypoglycemia Epoetin Luciano (Procrit) 7,500 units SC Q7D [facility] Last Admin: 03/06/18 10:09 Dose: 7,500 units Famotidine (Pepcid) 20 mg PO QAM [facility] Last Admin: 03/08/18 08:49 Dose: 20 mg Fish Oil (Fish Oil) 1,000 mg PO DAILY [facility] Last Admin: 03/08/18 08:47 Dose: 1,000 mg Fluoxetine HCl (Prozac) 20 mg PO DAILY [facility] Last Admin: 03/08/18 08:48 Dose: 20 mg Glucagon (Glucagon) 1 mg IM PRN PRN PRN Reason: Hypoglycemia Heparin Sodium (Porcine) (Heparin) 5,000 units SC BID [facility] Last Admin: 03/08/18 08:47 Dose: 5,000 units Dextrose/Water (D5w) 1,000 mls @ 0 mls/hr IV .Q0M PRN PRN Reason: Hypoglycemia Vancomycin HCl 1 gm/ Device 200 mls @ 200 mls/hr [facility] Vancomycin HCl 750 mg/ Sodium (Chloride) 250 mls @ 250 mls/hr IVPB [facility] Vancomycin HCl 500 mg/ Sodium (Chloride) 100 mls @ 100 mls/[facility] Last Admin: 03/08/18 16:36 Dose: 100 mls Vancomycin HCl 250 mg/ Sodium (Chloride) 100 mls @ 100 mls/hr IVPB [facility] Last Admin: 03/06/18 17:04 Dose: 100 mls Insulin Human Lispro (Humalog) 0 units SC .MILD SLIDING SCALE PRN PRN Reason: Mild Correctional Scale Insulin Human Lispro (Humalog) 0 units SC .BEDTIME SLIDING SC PRN PRN Reason: Bedtime Correctional Scale Levetiracetam (Keppra) 500 mg PO BID [facility] Last Admin: 03/08/18 08:49 Dose: 500 mg Lisinopril (Zestril) 20 mg PO DAILY [facility] Last Admin: 03/08/18 08:48 Dose: 20 mg Metronidazole (Flagyl) 250 mg PO 0200,1000,1800 [facility] Last Admin: 03/08/18 18:00 Dose: 250 mg Miscellaneous Medication (Pharmacy To Dose) 1 each IVPB PRN PRN PRN Reason: Pharmacy to dose Hold Vancomycin For (Level >20) 0 each FS .AT DIALYSIS [facility] Ondansetron HCl (Zofran Odt) 4 mg PO Q6H PRN PRN Reason: Nausea/Vomiting Ondansetron HCl (Zofran) 4 mg IVP Q6H PRN PRN Reason: Nausea/Vomiting Sevelamer Carbonate (Renvela) 800 mg PO TID-[facility] Last Admin: 03/08/18 18:00 Dose: 800 mg Sodium Chloride (Flush - Normal Saline) 10 ml IVF Q12HR PRN PRN Reason: Saline Flush Sodium Chloride (Flush - Normal Saline) 10 ml IVF PRN PRN PRN Reason: Saline Flush
[2018-03-08] MEDS: Atorvastatin Calcium 10 MG TAB PO SCH (20:36)
[2018-03-09] MEDS: metroNIDAZOLE 250 MG TAB PO SCH ×3 (02:46→17:04)
[2018-03-09] MEDS: Cipro 250 MG TAB PO SCH ×2 (05:34→20:19)
[2018-03-09] MEDS: Calcium Carbonate 500 MG ChewTAB PO SCH (08:04)
[2018-03-09] MEDS: Sevelamer Carbonate 800 MG TAB PO SCH ×3 (08:04→17:03)
[2018-03-09] MEDS: Calcium Acetate 667 MG CAP PO SCH ×4 (08:05→20:19)
[2018-03-09] MEDS: levETIRAcetam 500 MG TAB PO SCH ×2 (08:06→20:19)
[2018-03-09] MEDS: FLUoxetine HCl 20 MG CAP PO SCH (08:06)
[2018-03-09] MEDS: Amlodipine 10 MG TAB PO SCH (08:06)
[2018-03-09] MEDS: Famotidine 20 MG TAB PO SCH (08:06)
[2018-03-09] MEDS: Fish Oil 1,000 MG CAP PO SCH (08:06)
[2018-03-09] MEDS: Heparin 5,000 UNITS/ML VIAL SC SCH ×2 (08:07→20:23)
[2018-03-09] MEDS: Lisinopril 20 MG TAB PO SCH (08:08)
--- NOTE | 2018-03-09 10:54 | PRG ---
DATE OF SERVICE: 03/09/2018 SERVICE: Renal Medicine. SUBJECTIVE: Mr. Hernandez is a 57-year-old male with ESRD and followed up by the Renal Servic e for his maintenance hemodialysis. He underwent hemodialysis yesterday without any difficulty. He was initially admitted for right foot infection with conservative management of IV antibiotics. He a lso went for bone scan/nuclear medicine. Findings showed abnormal uptake in the soft tissues and bon es about the right hindfoot. This is consistent with infection of the bones. This morning, he voices no new complaints. He is actually feeling better. He denies any chest pain or shortness of breath. PHYSICAL EXAMINATION: VITAL SIGNS: Blood pressure is 172/74, heart rate 77, respiratory rate 18, temperature 99, pulse ox 95%. GENERAL: Awake, alert, comfortable, not in distress. SKIN: Adequate turgor. HEENT: He has slightly pale conjunctivae, anicteric sclerae. NECK: No neck mass, no carotid bruits, no JVD. CHEST: No deformities. LUNGS: Clear breath sounds. HEART: Normal sinus rhythm. No murmur, no gallops, no rubs. ABDOMEN: Globular, soft, nontender, no masses. EXTREMITIES: No edema. Positive for right foot dressing. MEDICATIONS: Of 03/09/2018 was reviewed. LABORATORY DATA: Of 03/09/2018, glucose 152. On 03/08/2018, potassium 5.3, BUN 39, creatinine 5.8, calcium 8.4, hemoglobin 10.8. ASSESSMENT AND PLAN: 1. Anemia - patient is currently on Epogen 7500 units subcutaneously every week. 2. Right foot infection on Flagyl, and IV vancomycin. 3. End-stage renal disease, stable. Tolerating current hemodialysis regimen. Continuing Sunday, We dn, Sunday dialysis. Again, fluid removal as tolerated.
[2018-03-09] MEDS ORDERED: cloNIDine 0.2 MG TAB PO SCH (11:00)
--- NOTE | 2018-03-09 14:22 | PDOC.PN ---
- Subjective Encounter Start Date: 03/09/18 Encounter Start Time: 12:30 Patient seen and examined for diabetic foot infection. No new complaints. No overnight events - Objective Resuscitation Status: Resuscitation Status FULL:Full Resuscitation MAR Reviewed: Yes Vital Signs & Weight: Vital Signs (12 hours) Temp Pulse Resp BP BP Pulse Ox 03/09/18 12:30 172/74 H 03/09/18 11:46 99.1 F 79 16 157/69 H 95 03/09/18 08:08 172/74 H 03/09/18 08:06 77 172/74 H 03/09/18 07:53 99.0 F 77 18 172/74 H 95 Weight Admit Weight 257 lb 6.4 oz Weight 257 lb 6.4 oz I&O: 03/08/18 03/09/18 03/10/18 06:59 06:59 06:59 Intake Total 600 500 240 Balance 600 500 240 Result Diagrams: 03/08/18 04:22 03/08/18 04:22 Additional Labs: Accuchecks 03/09/18 03/09/18 03/08/18 11:37 03:58 20:00 POC Glucose 159 H 152 H 168 H Phys Exam - Physical Examination Constitutional: NAD Respiratory: no wheezing, no rhonchi Cardiovascular: RRR, no rub Gastrointestinal: soft, non-tender, positive bowel sounds Rt foot swelling Neurological: moves all 4 limbs Dx/Plan - Plan DVT proph w/heparin 1. Right foot diabetic infection with suspected osteomyelitis (patient failed outpatient therapy) Cont Vancomycin/PO Cipro/PO Flagyl Monitor Vancomycin level ID/Wound care 2. End-stage renal disease on hemodialysis. Dialysis per Nephrology 3. Diabetes mellitus type 2 with Hypoglycemia Cont sliding scale Lantus on hold due to persistent hypoglycemia 4. Hypertension. Cont current meds as below 5. Peripheral vascular disease. 6. Obesity with a BMI 38.8 7. Hyperlipidemia. Cont Statins 8. History of cerebrovascular accident with residual left-sided weakness. 9. Anemia secondary to chronic renal disease/ Anaphylaxis to Zosyn/ Anxiety- Depression/ Seizure disorder Review of Systems - Medications/Allergies Allergies/Adverse Reactions: Allergies Allergy/AdvReac Type Severity Reaction Status Date / Time Penicillins Allergy Severe Anaphylaxis Verified 02/06/18 21:13 piperacillin [From Zosyn] Allergy Severe Verified 03/06/18 01:02 tazobactam [From Zosyn] Allergy Severe Verified 03/06/18 01:02 Medications: Current Medications Acetaminophen (Tylenol) 650 mg PO Q4H PRN PRN Reason: Headache/Fever/Mild Pain (1-3) Last Admin: 03/06/18 00:24 Dose: 650 mg Hydrocodone Bitart/Acetaminophen ([place] 5/325) 1 tab PO Q4H PRN PRN Reason: Moderate Pain (4-6) Last Admin: 03/06/18 05:32 Dose: 1 tab Amlodipine Besylate (Norvasc) 10 mg PO DAILY [facility] Last Admin: 03/09/18 08:06 Dose: 10 mg Atorvastatin Calcium (Lipitor) 10 mg PO HS [facility] Last Admin: 03/08/18 20:36 Dose: 10 mg Calcium Acetate (Phoslo) 667 mg PO QID-[facility] Last Admin: 03/09/18 12:31 Dose: 667 mg Calcium Carbonate (Tums) 1,500 mg PO QAM-[facility] Last Admin: 03/09/18 08:04 Dose: 1,500 mg Cholecalciferol (Vitamin D3) 2,000 units PO DAILY [facility] Last Admin: 03/09/18 08:05 Dose: 2,000 units Ciprofloxacin (Cipro) 250 mg PO BID@0600,2000 [facility] Last Admin: 03/09/18 05:34 Dose: 250 mg Clonidine (Catapres) 0.2 mg PO BID [facility] Dextrose/Water (Dextrose 50%) 25 gm SLOW IVP PRN PRN PRN Reason: Hypoglycemia Epoetin Luciano (Procrit) 7,500 units SC Q7D [facility] Last Admin: 03/06/18 10:09 Dose: 7,500 units Famotidine (Pepcid) 20 mg PO QAM [facility] Last Admin: 03/09/18 08:06 Dose: 20 mg Fish Oil (Fish Oil) 1,000 mg PO DAILY [facility] Last Admin: 03/09/18 08:06 Dose: 1,000 mg Fluoxetine HCl (Prozac) 20 mg PO DAILY [facility] Last Admin: 03/09/18 08:06 Dose: 20 mg Glucagon (Glucagon) 1 mg IM PRN PRN PRN Reason: Hypoglycemia Heparin Sodium (Porcine) (Heparin) 5,000 units SC BID [facility] Last Admin: 03/09/18 08:07 Dose: 5,000 units Dextrose/Water (D5w) 1,000 mls @ 0 mls/hr IV .Q0M PRN PRN Reason: Hypoglycemia Vancomycin HCl 1 gm/ Device 200 mls @ 200 mls/hr IVPB [facility] Vancomycin HCl 750 mg/ Sodium (Chloride) 250 mls @ 250 mls/hr [facility] Vancomycin HCl 500 mg/ Sodium (Chloride) 100 mls @ 100 mls/hr IVPB [facility] Last Admin: 03/08/18 16:36 Dose: 100 mls Vancomycin HCl 250 mg/ Sodium (Chloride) 100 mls @ 100 mls/hr IVPB [facility] Last Admin: 03/06/18 17:04 Dose: 100 mls Insulin Human Lispro (Humalog) 0 units SC .MILD SLIDING SCALE PRN PRN Reason: Mild Correctional Scale Insulin Human Lispro (Humalog) 0 units SC .BEDTIME SLIDING SC PRN PRN Reason: Bedtime Correctional Scale Levetiracetam (Keppra) 500 mg PO BID [facility] Last Admin: 03/09/18 08:06 Dose: 500 mg Lisinopril (Zestril) 20 mg PO DAILY [facility] Last Admin: 03/09/18 08:08 Dose: 20 mg Metronidazole (Flagyl) 250 mg PO 0200,1000,1800 [facility] Last Admin: 03/09/18 10:24 Dose: 250 mg Miscellaneous Medication (Pharmacy To Dose) 1 each IVPB PRN PRN PRN Reason: Pharmacy to dose Hold Vancomycin For (Level >20) 0 each FS .AT DIALYSIS [facility] Ondansetron HCl (Zofran Odt) 4 mg PO Q6H PRN PRN Reason: Nausea/Vomiting Ondansetron HCl (Zofran) 4 mg IVP Q6H PRN PRN Reason: Nausea/Vomiting Sevelamer Carbonate (Renvela) 800 mg PO TID-[facility] Last Admin: 03/09/18 12:31 Dose: 800 mg Sodium Chloride (Flush - Normal Saline) 10 ml IVF Q12HR PRN PRN Reason: Saline Flush Sodium Chloride (Flush - Normal Saline) 10 ml IVF PRN PRN PRN Reason: Saline Flush
[2018-03-09] MEDS: cloNIDine 0.2 MG TAB PO SCH (20:19)
[2018-03-09] MEDS: Atorvastatin Calcium 10 MG TAB PO SCH (20:19)
[2018-03-10] MEDS: metroNIDAZOLE 250 MG TAB PO SCH ×2 (01:42→10:58)
[2018-03-10 04:56] LABS: #Eosinphils 0.2 thou/uL (0.0-0.7); #Lymphocytes 2.3 thou/uL (1.20-3.40); #Monocytes 0.8 thou/uL (0.11-0.59); #Neutrophils 3.2 thou/uL (1.40-6.50); %Basophils 0.7 % (0.0-1.0); %Eosinophils 3.5 % (0.0-10.0); %Lymphocytes 35.3 % (21.0-51.0); %Monocytes 11.6 % (0.0-10.0); %Neutrophils 48.9 % (42.0-75.0); Hemoglobin 10.3 g/dL (14.0-18.0); Mean Corpuscular HGB CONC 30.6 g/dL (32.0-36.0); Mean Platelet Volume 8.3 fL (7.4-10.4); Platelet Count 221 thou/uL (130-400); RBC Distribution Width 16.7 % (11.5-14.5); White Blood Cell (WBC) Count 6.6 thou/uL (4.8-10.8)
[2018-03-10 05:24] LABS: Anion Gap 14 mmol/L (10-20); BUN (Urea Nitrogen) 46 mg/dL (8.4-25.7); Calc. Creatinine Clearance 23 mL/min (70-130); Calcium 8.5 mg/dL (7.8-10.44); Carbon Dioxide 28 mmol/L (22-29); Chloride 93 mmol/L (98-107); Estimated GFR-MDRD 10; Glucose 180 mg/dL (70-105); Potassium 5.3 mmol/L (3.5-5.1); Sodium 130 mmol/L (136-145)
[2018-03-10] MEDS: Cipro 250 MG TAB PO SCH (05:52)
[2018-03-10] MEDS: Calcium Carbonate 500 MG ChewTAB PO SCH (08:10)
[2018-03-10] MEDS: Sevelamer Carbonate 800 MG TAB PO SCH ×2 (08:11→13:22)
[2018-03-10] MEDS: Calcium Acetate 667 MG CAP PO SCH ×2 (08:12→13:22)
[2018-03-10] MEDS: Fish Oil 1,000 MG CAP PO SCH (08:15)
[2018-03-10] MEDS: levETIRAcetam 500 MG TAB PO SCH (08:15)
[2018-03-10] MEDS: FLUoxetine HCl 20 MG CAP PO SCH (08:16)
[2018-03-10] MEDS: Amlodipine 10 MG TAB PO SCH (08:16)
[2018-03-10] MEDS: Famotidine 20 MG TAB PO SCH (08:16)
[2018-03-10] MEDS: Heparin 5,000 UNITS/ML VIAL SC SCH (08:16)
[2018-03-10] MEDS: cloNIDine 0.2 MG TAB PO SCH (08:16)
--- NOTE | 2018-03-10 10:42 | PRG ---
DATE OF SERVICE: 03/10/2018 SERVICE: Renal Medicine. SUBJECTIVE: Mr. Hernandez is a 57-year-old male who was admitted for right foot infection. Helena singleton is currently on antibiotics. We are following him up for his maintenance hemodialysis. I did exam ine the patient today. He has no new complaints. He is doing well with antibiotics. The plan is fo r conservative management for his right foot infection. The patient denies any chest pain or shortness of breath. OBJECTIVE: VITAL SIGNS: Blood pressure 142/57, heart rate 67, respiratory rate 16, temperature 98, pulse ox 95% . GENERAL: Noted to be awake, alert, comfortable, not in overt distress. SKIN: Adequate turgor. HEENT: He has pinkish conjunctivae, anicteric sclerae. NECK: No neck mass, no carotid bruits, no JVD. CHEST: No deformities. LUNGS: Clear breath sounds. No wheezing, no crackles. HEART: Normal sinus rhythm. No murmur, no gallops, no rubs. ABDOMEN: Globular, soft, nontender, no masses. EXTREMITIES: No edema, no deformities. MEDICATIONS: Of 03/10/2018 was reviewed. LABORATORY DATA: Of 03/10/2018, white count 6.6, hemoglobin 10.3, hematocrit 33.5, sodium 130, potas sium 5.3, chloride 93, carbon dioxide 28, BUN 46, creatinine 5.77, glucose 180, calcium 8.5. ASSESSMENT AND PLAN: 1. Chronic right foot infection. Continuing antibiotics. We will continue the IV vancomycin at the dialysis unit for several more weeks. 2. End-stage renal disease, stable. There is no indication for any emergent dialysis today. Jenelle devlin current Sunday, Sunday, Sunday dialysis regimen. 3. Chronic anemia - the patient is on weekly Epogen. Agree with current management.
[2018-03-10 14:15] VITALS: BP 137/61; TEMP 98.8
--- NOTE | 2018-03-11 21:10 | DIS ---
DATE OF DISCHARGE: 03/10/2018 DISCHARGE DISPOSITION: Home. FOLLOWUP: 1. Follow up with primary care physician, Dr. Alston in 1 week. 2. Follow up with Infectious Disease, Dr. Stearns as well as General Surgery, Dr. Wood in 2 weeks. 3. Home healthcare through interim will be resumed. DISCHARGE MEDICATIONS: Vancomycin IV with dialysis, ciprofloxacin until 04/20/2018 and Flagyl until 04/12/2018. CBC, CMP and CRP weekly. Vancomycin trough with hemodialysis. All other home medicati ons were left unchanged. ALLERGIES: Patient is allergic to ZOSYN. The patient will continue wound care. The patient was seen and examined on the day of discharge, denies any new complaints, no chest pain, shortness of breath or palpitations. BRIEF HOSPITAL COURSE: The patient is a 57-year-old male with chronic diabetic right foot ulcer, pre sented to the hospital with right foot swelling. He currently takes vancomycin, ciprofloxacin and Fl agyl. His temperature in the ER was 100.4. Please refer to the history and physical for further det ails. The patient was admitted to the hospital with a diagnosis of right foot diabetic infection with possi ble osteomyelitis. The patient was evaluated by Infectious Disease, Dr. Stearns. He underwent a bone scan that showed abnormal uptake in the soft tissue and the bones about the right hindfoot. It corre lated with findings consistent with inflammation and infection of the bones and soft tissue of the ri ght hindfoot. Dr. Stearns recommended antibiotics as discussed above. He received hemodialysis per Ne phrology recommendation. He has been cleared by consultants for discharge. His potassium was slight ly elevated at 5.3 on the day of discharge. I discussed with Nephrology, Dr. Dalal, who is okay with t he patient living with 5.3 potassium. He will undergo dialysis in a.m. Lisinopril was held on the d ay of discharge. FINAL DIAGNOSES: 1. Right foot diabetic infection with suspected osteomyelitis. Please note patient failed outpatien t therapy. 2. End-stage renal disease on hemodialysis. 3. Diabetes mellitus type 2. 4. Hypertension. 5. Peripheral vascular disease. 6. Obesity with body mass index 38.8. 7. Hyperlipidemia. 8. History of cerebrovascular accident with residual left-sided weakness. 9. Anemia secondary to chronic renal disease. 10. Anxiety and depression. 11. Seizure disorder. 12. Anaphylaxis to Zosyn. Plan of care was discussed with the patient in detail. He stated understanding.
== END 2018-03-10 14:42 | disposition home health service (06) | DRG 638 ==
LOC: ERS 20:03 → 2SE 23:05 → T4-A 03-06 19:43
PROVIDERS: ADMIT Internal Medicine; ATTEND Internal Medicine
DX: E11.621 Type 2 diabetes mellitus with foot ulcer (principal); I69.354 Hemiplegia and hemiparesis following cerebral infarction affecting left non-dominant side; M86.171 Other acute osteomyelitis, right ankle and foot; I12.0 Hypertensive chronic kidney disease with stage 5 chronic kidney disease or end stage renal disease; N18.6 End stage renal disease; E11.22 Type 2 diabetes mellitus with diabetic chronic kidney disease; Z99.2 Dependence on renal dialysis; Z89.421 Acquired absence of other right toe(s); Z87.891 Personal history of nicotine dependence; Z88.0 Allergy status to penicillin; Z88.1 Allergy status to other antibiotic agents; Z79.899 Other long term (current) drug therapy; Z79.4 Long term (current) use of insulin; Z79.891 Long term (current) use of opiate analgesic; Z79.2 Long term (current) use of antibiotics; E66.9 Obesity, unspecified; G40.909 Epilepsy, unspecified, not intractable, without status epilepticus; D63.1 Anemia in chronic kidney disease; G62.9 Polyneuropathy, unspecified; Z68.38 Body mass index [BMI] 38.0-38.9, adult; E78.5 Hyperlipidemia, unspecified; E11.649 Type 2 diabetes mellitus with hypoglycemia without coma; I73.9 Peripheral vascular disease, unspecified
CPT/HCPCS: 36415; 36416; 78315; 80048; 80053; 80202; 83605; 84146; 85025; 85652; 86140; 87040; 87340; 90935; 96365; 96367; 96375; A9503; G0257; G8978-GP-CK; G8979-GP-CI; J0696; J1644; J1650; J2185; J2270; J2405; J3370; J7050; Q4081

== ENCOUNTER 2018-03-28 11:06 | Observation (INO) | payer MEDICARE ==
[2018-03-28 11:33] LABS: #Eosinphils 0.2 thou/uL (0.0-0.7); #Lymphocytes 1.8 thou/uL (1.20-3.40); #Monocytes 0.6 thou/uL (0.11-0.59); #Neutrophils 6.1 thou/uL (1.40-6.50); %Basophils 0.3 % (0.0-1.0); %Eosinophils 1.8 % (0.0-10.0); %Lymphocytes 20.2 % (21.0-51.0); %Monocytes 7.2 % (0.0-10.0); %Neutrophils 70.5 % (42.0-75.0); Hemoglobin 12.2 g/dL (14.0-18.0); Mean Corpuscular Hemoglobin 27.4 pg (27.0-31.0); Mean Corpuscular Volume 88.3 fL (78.0-98.0); Mean Platelet Volume 8.6 fL (7.4-10.4); Platelet Count 186 thou/uL (130-400); RBC Distribution Width 19.3 % (11.5-14.5); Red Blood Cell (RBC) Count 4.44 mill/uL (4.70-6.10); White Blood Cell (WBC) Count 8.7 thou/uL (4.8-10.8)
[2018-03-28 11:46] LABS: INR-International Normal Ratio 1.1; PTT 32.8 SEC (22.9-36.1); Prothrombin Time 14.2 SEC (12.0-14.7)
[2018-03-28] MEDS ORDERED: Morphine 4 MG/ML VIAL ONE (11:53)
[2018-03-28 11:56] LABS: ALT (SGPT) 9 U/L (8-55); AST (SGOT) 10 U/L (5-34); Albumin 3.4 g/dL (3.5-5.0); Alkaline Phosphatase 172 U/L (40-150); Anion Gap 13 mmol/L (10-20); BUN (Urea Nitrogen) 33 mg/dL (8.4-25.7); Bilirubin, Total 0.5 mg/dL (0.2-1.2); Calc. Creatinine Clearance 0 mL/min (70-130); Calcium 8.8 mg/dL (7.8-10.44); Carbon Dioxide 25 mmol/L (22-29); Chloride 99 mmol/L (98-107); Estimated GFR-MDRD 11; Globulin 4.5 g/dL (2.4-3.5); Glucose 329 mg/dL (70-105); Potassium 4.7 mmol/L (3.5-5.1); Protein, Total 7.9 g/dL (6.0-8.3); Sodium 132 mmol/L (136-145)
--- NOTE | 2018-03-28 11:57 | CT ---
CT BRAIN: History: Stroke. Technique: Noncontrast enhanced CT images of the brain obtained from the base of the skull through th e vertex. Brain and bone windows obtained. FINDINGS: CT images demonstrate an old area of stroke in the left cerebellar hemisphere. Old areas of stroke se en in the right frontal lobe. No evidence of acute intracranial masses, hemorrhages, or strokes seen. No significant acute intracranial abnormalities seen. IMPRESSION: Old areas of stroke with no evidence of acute intracranial pathology noted. Findings called to Dr. Corina roy at 11:42 a.m. 03-28-18. Code CR
[2018-03-28 11:59] LABS: CKMB 1.5 ng/mL (0-6.6); Troponin I 0.014 ng/mL (< 0.028)
--- NOTE | 2018-03-28 12:20 | CT ---
CTA HEAD AND CTA NECK WITH CONTRAST: Date: 03/28/18 COMPARISON: 06/23/15. HISTORY: Stroke-like symptoms with left-sided weakness and headache. TECHNIQUE: 1. Multiple contiguous axial images were obtained in a CTA of the neck with contrast. Sagittal and c oronal 3D MIP reformats were performed. 2. Multiple contiguous axial images were obtained in a CTA of the head with contrast. Sagittal and c oronal 3D MIP reformats were performed. FINDINGS: CTA NECK: The common carotid arteries have a normal origin within the aortic arch. These branch into normal leo iber internal and external carotid arteries. Mild atherosclerotic disease is seen in the proximal nataliia ateral internal carotid arteries. No significant stenosis per NASCET criteria is seen on either side. Both vertebral arteries have a normal origin from the aorta. No significant atherosclerotic disease i s seen in the cervical vertebral arteries. No soft tissue abnormality of the neck is seen. No cervical adenopathy is present. Degenerative vega es are seen in the spine. CTA HEAD: Moderate atherosclerotic disease is seen diffusely within both cavernous internal carotid arteries an d extending just above the cavernous portions of the internal carotid arteries. The intracranial inte rnal carotid arteries are normal in caliber and branch in a normal appearing anterior and middle cere bral arteries. There is no evidence of focal stenosis, aneurysmal dilatation, or occlusion in the ant erior circulation. There is a left posterior communicating artery. Both vertebral arteries form a normal appearing basilar artery. The cerebellar arteries and posterior cerebral arteries are patent. There is no evidence of focal stenosis, occlusion, or aneurysmal dilat ation in the posterior circulation. IMPRESSION: 1. Unremarkable CTA of neck. 2. No significant acute CTA abnormality of the head. Dr. Vega notified of findings at 1202 hours on 03/28/18. CODE CR. POS: [facility]
[2018-03-28] MEDS ORDERED: Metoclopramide HCl 10 MG/2 ML VIAL ONE (12:55)
[2018-03-28] MEDS ORDERED: diphenhydrAMINE 50 MG/ML VIAL ONE (12:55)
[2018-03-28] MEDS ORDERED: ISOVUE-370 76%-LOCM 1 ML ONE (13:17)
[2018-03-28] MEDS ORDERED: Ondansetron ODT 4 MG TAB SL PRN (15:57)
[2018-03-28] MEDS ORDERED: Acetaminophen 325 MG TAB PO PRN ×2 (15:57→16:05)
[2018-03-28] MEDS ORDERED: Ondansetron PF 4 MG/2 ML Vial IVP PRN ×2 (15:57→16:05)
[2018-03-28] MEDS ORDERED: Labetalol HCl 100 MG/20 ML VIAL SLOW IVP PRN (16:05)
[2018-03-28] MEDS ORDERED: Dextrose 5% in Water 1,000 ML IV PRN (16:05)
[2018-03-28] MEDS ORDERED: Bisacodyl 5 MG TAB PO PRN (16:05)
[2018-03-28] MEDS ORDERED: hydrALAZINE 20 MG/ML VIAL SLOW IVP PRN (16:05)
[2018-03-28] MEDS ORDERED: HYDROcodone/Acetaminophen 5/325 mg Tablet PO PRN (16:05)
[2018-03-28] MEDS ORDERED: Zolpidem Tartrate 5 MG TAB PO PRN (16:05)
[2018-03-28] MEDS ORDERED: Bisacodyl 10 MG SUPP PR PRN (16:05)
[2018-03-28] MEDS ORDERED: Dextrose 50% Abboject 50 ML SYRINGE SLOW IVP PRN (16:05)
[2018-03-28] MEDS ORDERED: Loperamide HCl 2 MG CAP PO PRN (16:05)
[2018-03-28] MEDS ORDERED: Ondansetron ODT 4 MG TAB PO PRN (16:05)
[2018-03-28] MEDS ORDERED: Calcium Carbonate 500 MG ChewTAB PO PRN (16:05)
[2018-03-28] MEDS ORDERED: HumaLOG 300 UNITS/3 ML VIAL SC PRN ×2 (16:05)
[2018-03-28] MEDS ORDERED: VANCOMYCIN IVPB PRN (16:05)
[2018-03-28] MEDS ORDERED: Senokot S 8.6-50 MG TAB PO PRN (16:05)
--- NOTE | 2018-03-28 16:09 | HP ---
PRIMARY CARE PHYSICIAN: MD Michael, Keith. PRIMARY TAR DISTILLATION SUPERVISOR: Dr. Dalal. REASON FOR ADMISSION: Hypertensive urgency, intractable headache. HISTORY OF PRESENT ILLNESS: A 57-year-old male who has multiple medical problems including hypertension, dyslipidemia, history of CVA with residual left-sided weakness, who presented to emergency room with complaint of headache. Last night when he went to bed at that time, he was up to his baseline. This morning when he woke up at that time he was having diffuse headache predominantly occipital, throbbing in nature, 8/10 in intensity associated with nausea and 1 episode of vomiting. The patient's headache was getting worse with light and on exertion. He was keeping his eye closed. The patient's family member did not notice any new weakness. In the emergency room, the patient was having weakness on the left lower extremity as well as on right lower extremity. The patient's speech is normal. He does not have any chest pain, palpitation, or shortness of breath. When he presented to emergency room, his blood pressure was 218/98, but after emergency room treatment, his blood pressure improved to 172/90. In the emergency room, the patient had CT brain and CT angiography of head and neck, which was unremarkable. At this point, we are admitting this patient for stroke workup and blood pressure control. The patient's family member present at bedside who reports that since previous stroke, the patient is able to ambulate with walker, but he drags his foot. He cannot climb stairs. The patient is able to feed himself with the right hand and the patient is right handed. For last couple of days, the patient is not able to maintain his balance even with a walker, which he normally able to walk with a walker. He did not have any fever or chills. He did not have any seizure. He did not have any fall or any head injury. The patient's reports that he had several TIA and stroke in past. REVIEW OF SYSTEMS: Please see my HPI for pertinent positive and negative. All other review of system reviewed and negative except as mentioned in the HPI. PAST MEDICAL HISTORY: ESRD, on hemodialysis, Sunday, Sunday, Sunday; diabetes type 2; diabetic retinopathy; diabetic neuropathy; diabetic nephropathy; history of CVA with residual left-sided weakness; multiple TIA; history of diabetic foot infection; hypertension; dyslipidemia; history of hemorrhagic CVA in 2005. PAST SURGICAL HISTORY: Multiple dialysis, cholecystectomy, tonsillectomy, partial toe amputation on the right side as well as metatarsal amputation on the right side, third left toe partial digit amputation. PAST PSYCHIATRIC HISTORY: Reviewed. Anxiety and depression. SOCIAL HISTORY: The patient is . His is accompanying him. He lives at home with his . He is former smoker. He ambulates with walker normally. He does not have any tobacco, alcohol, or illicit drug abuse. FAMILY HISTORY: Father by age of 76 from colon cancer. EMERGENCY ROOM COURSE: The patient is given Reglan 10 mg, benadryl 25 mg, IV fluid, and morphine 4 mg. ALLERGIES: PENICILLIN AND ZOSYN. CURRENT HOME MEDICATIONS: 1. Amlodipine 10 mg p.o. daily. 2. Lipitor 10 mg p.o. at bedtime. 3. PhosLo 667 mg p.o. q.i.d. 4. Calcium carbonate 1500 mg p.o. t.i.d. 5. Vitamin D3 2000 units p.o. b.i.d. 6. Catapres 0.2 mg p.o. b.i.d. 7. Prozac 20 mg p.o. daily. 8. [place] 1 tablet b.i.d. p.r.n. 9. NovoLog insulin p.r.n. 10. Lantus insulin 35 units subcu at bedtime. 11. Fish oil 1 capsule daily. 12. Keppra 500 mg p.o. b.i.d. 13. Lisinopril 20 mg p.o. daily. ADDITIONAL HISTORY: The patient has diabetic foot infection in the right foot and the patient has home health nurse comes for dressing, and the patient is getting vancomycin with dialysis. The patient is also on oral Cipro and Flagyl, which he will continue until April 20, 2018. PHYSICAL EXAMINATION: VITAL SIGNS: On arrival, blood pressure 218/98, pulse 83, respiratory rate 20, temperature 98.3, saturations 97% on room air. Weight 117.9 kg. GENERAL: The patient is currently alert, awake, mild distress due to headache, hypertensive. HEENT: Head, normocephalic and atraumatic. Eyes; pupils round, reactive to light. Extraocular muscle intact. No nystagmus. ENT, oropharynx within normal limits. Moist mucous membrane. No oral lesion. No pharyngeal erythema. No exudate. NECK: Supple. No JVD. No thyromegaly. No carotid bruits. LUNGS: Clear to auscultation without any rhonchi or rales. CARDIAC: S1 and S2, regular. No murmur. No gallop. No rub. ABDOMEN: Soft. Bowel sounds present. Nontender, nondistended. No organomegaly. No mass. No suprapubic tenderness. Obesity present. BACK: Unremarkable. No CVA tenderness. EXTREMITIES: Upper extremities; both upper extremities within normal limits. Tremor noted. Passive movement of all joints is normal. Lower extremities; right foot is covered with dressing. NEUROLOGIC: The patient is alert, oriented x3. Speech normal. Cranial nerves 2 through 12 intact. The patient is not able to lift his left lower extremity off bed. He does have pronator drift on the left side and he has weakness on the left upper and lower extremity. He has tremors. Right lower extremity and right upper extremity are slightly weak. Detailed neurological examination is not possible because the patient is not completely cooperative because of headache. SKIN: No skin rash. PSYCHIATRIC: Normal affect. SIGNIFICANT LABORATORY DATA: CT angiography head and neck negative for any acute process. CT brain negative for any acute process. He does have old area of stroke in the left cerebellar hemisphere and right frontal lobe. CBC; WBC 8.7, hemoglobin 12.2, platelets 186, INR 1.1. BMP; sodium 132, potassium 4.7, chloride 99, carbon dioxide 25, anion gap 13, BUN 33, creatinine 5.53, glucose 329, calcium 8.8. LFTs; AST 10, ALT 9, alkaline phosphatase 172, albumin 3.4, CK-MB 1.5, troponin 0.014. EKG showing sinus rhythm without any ischemic changes, first-degree AV block. ASSESSMENT AND PLAN/IMPRESSION: 1. Hypertensive urgency on admission. The patient will be observed on Stroke floor. We will monitor his vitals and adjust blood pressure medications while in hospital. At this point, we will continue amlodipine 10 mg p.o. daily, clonidine 0.2 mg p.o. b.i.d., and we will use hydralazine and labetalol p.r.n. basis. We will consider adding beta-saira therapy on his regimen. 2. Rule out cerebrovascular accident. This patient has unspecified type of weakness on examination. He has left cerebellar and right frontal lobe stroke in past, so it is very difficult to determine whether acute or any chronic problem. This patient's CT angiography head and neck and CT brain is not showing any acute process. We will obtain MRI brain to rule out any acute stroke. PT/OT will be consulted and rehab screen will be initiated while in hospital. 3. Diabetic foot infection. Wound Care team will be consulted. The patient will continue to get vancomycin with dialysis and we will continue oral Cipro 250 mg p.o. b.i.d. and Flagyl 250 mg p.o. t.i.d. while in hospital. 4. Dyslipidemia. Continue Lipitor 10 mg p.o. at bedtime. 5. Anxiety and depression. Continue Prozac 20 mg p.o. daily. 6. Diabetes type 2, not well controlled. Continue Lantus 35 units subcu at bedtime and Humalog insulin as per sliding scale. 7. Secondary hyperparathyroidism of renal origin. Continue PhosLo 667 mg p.o. q.i.d. 8. History of seizure disorder. Continue Keppra 500 mg p.o. b.i.d. 9. End-stage renal disease, on hemodialysis. Dr. Dalal will be consulted for his maintenance hemodialysis while in hospital. 10. Deep venous thrombosis prophylaxis not needed because we are expecting discharge in 24 hours. 11. Gastrointestinal prophylaxis, Pepcid 20 mg p.o. daily. 12. Code status: The patient is full code. The patient's is surrogate decision maker. 13. Intractable headache likely due to uncontrolled hypertension, possibility of migraine headache cannot be entirely excluded. We will control his headache with giving him pain medication while in hospital. 14. Disposition plan within 24 hours. Plan of care discussed with the patient and family member at bedside in the emergency room. Job ID: [id number] [facility]
[2018-03-28] MEDS ORDERED: metroNIDAZOLE 250 MG TAB PO SCH (16:30)
[2018-03-28] MEDS: Calcium Acetate 667 MG CAP PO SCH ×2 (17:33→23:03)
[2018-03-28] MEDS: Sodium Chloride 0.9% 1,000 ML IV SCH ×2 (17:34→23:17)
[2018-03-28 18:01] VITALS: BMI 38.2
[2018-03-28] MEDS ORDERED: Vancomycin HCl 750 MG in Sodium Chloride 0.9% 250 ML 250 ML IVPB SCH (18:15)
[2018-03-28] MEDS ORDERED: Vancomycin HCl 1.25 GM in Sodium Chloride 0.9% 250 ML 250 ML IVPB SCH (18:15)
[2018-03-28] MEDS ORDERED: Vancomycin HCl 1 GM in Premix Bag 1 BAG IVPB SCH (18:15)
[2018-03-28] MEDS ORDERED: HOLD VANCOMYCIN FOR LEVEL >20 FS SCH (18:15)
[2018-03-28] MEDS ORDERED: Vancomycin HCl 1.5 GM in Sodium Chloride 0.9% 250 ML 300 ML IVPB SCH (18:15)
--- NOTE | 2018-03-28 19:29 | MRI ---
BRAIN MRI WITHOUT CONTRAST: 03/28/18 COMPARISON: 07/27/17 HISTORY: Transient ischemic attack. TECHNIQUE: Multiplanar and multisequence MR imaging of the brain is provided without contrast. FINDINGS: The diffusion weighted imaging demonstrates no evidence for acute infarction. There is prominent encephalomalacia involving the inferior aspect of the left cerebellar hemisphere, evidence of prior infarction. There is blooming artifact on the right involving the periventricular w lidia matter adjacent to the body of the right lateral ventricle extending along the dorsal aspect of the thalamus, evidence of remote hemorrhage, stable. A focus of stable blooming artifact noted adjace nt to fourth ventricle suggesting remote hemorrhage and/or calcification. Periventricular, deep, and subcortical white matter T2 and FLAIR hyperintensity noted, evidence of stable small vessel disease. There is brain stem and cerebellar volume loss as well as volume loss involving the proximal aspect o f the cervical cord, a stable finding as well. Arterial flow voids at the axial level of the skull ba se appear grossly unremarkable. Imaged paranasal sinuses/mastoid air cells are well aerated. IMPRESSION: Stable head MRI. Numerous chronic findings. No evidence for acute infarction. POS: [facility]
[2018-03-28] MEDS ORDERED: Insulin Glargine 35 UNITS in Pre-Filled Syringe 1 EACH SC SCH (21:00)
[2018-03-28] MEDS ORDERED: Atorvastatin Calcium 40 MG TAB PO SCH (21:00)
[2018-03-28] MEDS: metroNIDAZOLE 250 MG TAB PO SCH (23:02)
[2018-03-28] MEDS: cloNIDine 0.2 MG TAB PO SCH (23:02)
[2018-03-28] MEDS: levETIRAcetam 500 MG TAB PO SCH (23:02)
[2018-03-28] MEDS: Cipro 250 MG TAB PO SCH (23:03)
[2018-03-28] MEDS ORDERED: Atorvastatin Calcium 10 MG TAB PO SCH (23:15)
[2018-03-29 05:49] LABS: #Eosinphils 0.2 thou/uL (0.0-0.7); #Lymphocytes 2.3 thou/uL (1.20-3.40); #Monocytes 0.9 thou/uL (0.11-0.59); #Neutrophils 4.6 thou/uL (1.40-6.50); %Basophils 0.3 % (0.0-1.0); %Lymphocytes 29.2 % (21.0-51.0); %Monocytes 11.1 % (0.0-10.0); %Neutrophils 57.5 % (42.0-75.0); Hemoglobin 10.1 g/dL (14.0-18.0); Mean Corpuscular HGB CONC 31.9 g/dL (32.0-36.0); Mean Corpuscular Hemoglobin 28.5 pg (27.0-31.0); Mean Corpuscular Volume 89.5 fL (78.0-98.0); Mean Platelet Volume 8.8 fL (7.4-10.4); Platelet Count 157 thou/uL (130-400); RBC Distribution Width 19.1 % (11.5-14.5); Red Blood Cell (RBC) Count 3.53 mill/uL (4.70-6.10); White Blood Cell (WBC) Count 7.9 thou/uL (4.8-10.8)
[2018-03-29 05:50] LABS: Albumin 2.8 g/dL (3.5-5.0); Anion Gap 12 mmol/L (10-20); BUN (Urea Nitrogen) 37 mg/dL (8.4-25.7); BUN/Creatinine Ratio 6.11; Calc. Creatinine Clearance 21 mL/min (70-130); Calcium 8.3 mg/dL (7.8-10.44); Carbon Dioxide 23 mmol/L (22-29); Cardiac Risk 4.4 (Less than 4.5); Chloride 104 mmol/L (98-107); Cholesterol 93 mg/dl (< 200 Desired); Estimated GFR-MDRD 10; Glucose 96 mg/dL (70-105); HDL Cholesterol 21 mg/dL (>60 Neg Risk); LDL Cholesterol, Calculated 58 mg/dL; Phosphorus 5.7 mg/dL (2.3-4.7); Potassium 4.7 mmol/L (3.5-5.1); Sodium 134 mmol/L (136-145); Triglycerides 71 mg/dL (Less than 150)
[2018-03-29] MEDS: Cipro 250 MG TAB PO SCH (06:39)
[2018-03-29] MEDS ORDERED: Amlodipine 10 MG TAB PO SCH (09:00)
[2018-03-29] MEDS ORDERED: Epoetin (ESRD) 20,000 UNITS/ML SC SCH (09:00)
[2018-03-29] MEDS ORDERED: Famotidine 20 MG TAB PO SCH (09:00)
[2018-03-29] MEDS ORDERED: Lisinopril 20 MG TAB PO SCH (09:00)
[2018-03-29] MEDS ORDERED: FLUoxetine HCl 20 MG CAP PO SCH (09:00)
[2018-03-29] MEDS ORDERED: Aspirin 81 mg Enteric Coated Tablet PO SCH (09:00)
[2018-03-29] MEDS ORDERED: Enoxaparin Sodium 40 MG/0.4 ML SYRINGE SC SCH (09:00)
--- NOTE | 2018-03-29 09:32 | DIS ---
DATE OF ADMISSION: 03/28/2018 DATE OF DISCHARGE: 03/29/2018 PRIMARY CARE PHYSICIAN: Dr. Ash Dumont at [facility]. DISCHARGE DISPOSITION: Home. PRIMARY DISCHARGE DIAGNOSES: 1. Hypertensive urgency, controlled. 2. Intractable headache, resolved. 3. Ruled out new cerebrovascular accident. SECONDARY DISCHARGE DIAGNOSES: 1. Recent history of diabetic foot infection, on IV vancomycin. 2. Hypertension. 3. Dyslipidemia. 4. Anxiety and depression. 5. Diabetes, type 2. 6. Diabetic neuropathy and arthropathy. 7. Secondary hyperparathyroidism of renal origin. 8. History of seizure disorder. 9. End-stage renal disease, on hemodialysis. PRIMARY PROCEDURE/OPERATION: Maintenance hemodialysis. RADIOLOGICAL INVESTIGATION: CT of brain negative for any acute intracranial process. It did show old stroke in cerebellum and frontal lobe. CT [place] angiography head and neck was negative for any acute blockage. MRI of brain did not show any acute CVA. SIGNIFICANT LABS: WBC 7.9, hemoglobin 10.1, and platelets 157. INR 1.1. Sodium 134, potassium 4.7, BUN 37, creatinine 6.06, calcium 8.3, phosphorus 5.7, and albumin 2.8. LDL 58. DISCHARGE MEDICATIONS: We are not making any change in his home medications. The patient will continue following medications; 1. Norvasc 10 mg daily. 2. Lipitor 10 mg at bedtime. 3. PhosLo 667 mg p.o. q.i.d. 4. Tums 1500 mg p.o. t.i.d. 5. Vitamin D3 2000 units p.o. daily. 6. Clonidine 0.2 mg b.i.d. 7. Prozac 20 mg p.o. daily. 8. [place] 7.5 mg 1 tablet b.i.d. p.r.n. 9. Lantus insulin 45 units subcu at bedtime. 10. NovoLog insulin as per sliding scale. 11. Fish oil 1 capsule daily. 12. Renvela 800 mg t.i.d. 13. Lisinopril 20 mg daily. 14. The patient will continue vancomycin with dialysis as per previous schedule. 15. Similarly, the patient will continue Cipro and Flagyl as prescribed during previous admission to finish complete course of therapy. CONTRAINDICATION: None. CODE STATUS: Full code. INPATIENT PROPERTY VALUER: Dr. Dalal was consulted for maintenance hemodialysis. ALLERGIES: PENICILLIN AND ZOSYN. DISCHARGE PLAN: Posthospital, the patient will follow up with primary care physician in 1 week. HOSPITAL COURSE: This is a 57-year-old male, who was admitted by me. Please see my HPI for further detail. The patient was brought to emergency room because family member noted that he was having unsteadiness as well as the patient was also having severe headache. He was found with hypertensive urgency. His blood pressure was very high in the emergency room. Stroke alert was initiated because his examination finding was pretty much confusing for stroke. CT brain did not show any acute process. CT [place] head and neck angiography was also negative. The patient was admitted to the stroke floor for observation. We did MRI that did not show any new acute process. He does have previous stroke, and he did not have any weakness on examination today. I have seen and examined the patient at bedside. His headache has completely resolved. He is able to move all 4 limbs, which he did not yesterday. He lifted both upper extremity and he lifted both lower extremity off the bed. His speech is clear. His physical examination is completely normal including cardiac and lung examination. His vitals are pretty much stable. His labs are also unremarkable. The patient is getting his maintenance hemodialysis today and after that the patient will be discharged home. He does not want to go to rehab. Job ID: [id number]
--- NOTE | 2018-03-29 09:35 | PRG ---
DATE OF SERVICE: 03/29/2018 SUBJECTIVE: Mr. Hernandez is a 57-year-old male with ESRD and admitted for TIA. MRI of the brain was done, which showed no acute infarction. We were consulted for his maintenance hemodialysis. I am currently dialyzing the patient. I am at the bedside, supervising dialysis. He is tolerating said treatment. No other complaints. No chest pain or shortness of breath. OBJECTIVE: VITAL SIGNS: Blood pressure is noted at 123/59, heart rate 71, respiratory rate 16, temperature 98.1, and pulse ox 97%. GENERAL: Awake, alert, comfortable, not in distress. SKIN: Adequate turgor. HEENT: He has pinkish conjunctivae. Anicteric sclerae. NECK: No neck mass. No carotid bruits. No JVD. CHEST: No deformities. LUNGS: Clear breath sounds. No wheezing. No crackles. HEART: Normal sinus rhythm. No murmur. No gallops. No rubs. ABDOMEN: Globular. Soft and nontender. EXTREMITIES: Trace edema. MEDICATIONS: Medications of March 29, 2018, reviewed. LABORATORY DATA: Laboratories of March 29, 2018, white count 7.9, hemoglobin 10.1. Sodium 134, potassium 4.7, chloride 104, carbon dioxide 23, BUN 37, creatinine 6.06, calcium 8.3, and phosphorus 5.7. DIAGNOSTIC STUDIES: MRI of the brain showed no acute infarct. ASSESSMENT AND PLAN: 1. End-stage renal disease, stable. Continue on current maintenance hemodialysis on Sunday, Sunday, and Sunday. Fluid removal as tolerated. 2. Borderline anemia. Start Epogen 7500 units subcu weekly. 3. Transient ischemic attack - supportive care. MRI of the brain showed no acute infarction. 4. Chronic leg infection - on IV vancomycin. End date is the third week of March. Job ID: [id number]
--- NOTE | 2018-03-29 09:35 | PDOC.PN ---
- Subjective Encounter Start Date: 03/29/18 Encounter Start Time: 09:34 -: old records requested/rev Patient seen and examined. No new complaints. No overnight events - Objective Resuscitation Status - Order Detail: 03/28/18 14:23 Resuscitation Status Routine Resuscitation Status: FULL: Full Resuscitation MAR Reviewed: Yes Vital Signs & Weight: Vital Signs (12 hours) Temp Pulse Resp BP Pulse Ox 03/29/18 04:00 98.1 F 71 16 123/59 L 97 03/29/18 00:00 98.7 F 74 16 158/74 H 94 L Weight Weight 244 lb I&O: 03/28/18 03/29/18 03/30/18 06:59 06:59 06:59 Intake Total 1350 Balance 1350 Result Diagrams: 03/29/18 05:14 03/29/18 05:14 Additional Labs: Accuchecks 03/29/18 03/29/18 03/28/18 06:41 05:49 22:56 POC Glucose 93 77 235 H 03/28/18 18:52 POC Glucose 262 H EKG Reviewed by me: Yes Phys Exam - Physical Examination Constitutional: NAD HEENT: PERRLA, moist MMs, sclera anicteric Neck: no JVD, supple Respiratory: no wheezing, no rales, no rhonchi Cardiovascular: RRR, no significant murmur, no rub Gastrointestinal: soft, non-tender, no distention, positive bowel sounds Musculoskeletal: no edema, pulses present Neurological: moves all 4 limbs Lymphatic: no nodes Psychiatric: normal affect, A&O x 3 Skin: no rash, normal turgor Dx/Plan (1) Anemia of renal disease Code(s): D63.1 - ANEMIA IN CHRONIC KIDNEY DISEASE Status: Chronic (2) DM2 (diabetes mellitus, type 2) Status: Chronic Qualifiers: (3) Diabetic neuropathic arthropathy Code(s): E11.610 - TYPE 2 DIABETES MELLITUS W DIABETIC NEUROPATHIC ARTHROPATHY Status: Chronic (4) Dyslipidemia Code(s): E78.5 - HYPERLIPIDEMIA, UNSPECIFIED Status: Chronic (5) ESRD (end stage renal disease) on dialysis Code(s): N18.6 - END STAGE RENAL DISEASE; Z99.2 - DEPENDENCE ON RENAL DIALYSIS Status: Chronic (6) HTN (hypertension) Code(s): I10 - ESSENTIAL (PRIMARY) HYPERTENSION Status: Chronic Qualifiers: (7) Hemiparesis and other late effects of cerebrovascular accident Code(s): I69.359 - HEMIPLGA FOLLOWING CEREBRAL INFARCTION AFFECTING UNSP SIDE; I69.398 - OTHER SEQUELAE OF CEREBRAL INFARCTION Status: Chronic (8) Obesity (BMI 30-39.9) Code(s): E66.9 - OBESITY, UNSPECIFIED Status: Chronic (9) Secondary hyperparathyroidism of renal origin Code(s): N25.81 - SECONDARY HYPERPARATHYROIDISM OF RENAL ORIGIN Status: Chronic - Plan cont current plan of care * medication reviewed as below * symptomatic treatment * DC to home per pt request after HD. * see my discharge chris Review of Systems - Review of Systems ENT: negative: Ear Pain, Ear Discharge, Nose Pain, Nose Discharge, Nose Congestion, Mouth Pain, Mouth Swelling, Throat Pain, Throat Swelling, Other Respiratory: negative: Cough, Dry, Shortness of Breath, Hemoptysis, SOB with Excertion, Pleuritic Pain, Sputum, Wheezing Cardiovascular: negative: chest pain, palpitations, orthopnea, paroxysmal nocturnal dyspnea, edema, light headedness, other Gastrointestinal: negative: Nausea, Vomiting, Abdominal Pain, Diarrhea, Constipation, Melena, Hematochezia, Other Genitourinary: negative: Dysuria, Frequency, Incontinence, Hematuria, Retention , Other Musculoskeletal: negative: Neck Pain, Shoulder Pain, Arm Pain, Back Pain, Hand Pain, Leg Pain, Foot Pain, Other Skin: negative: Rash, Lesions, [place], Bruising, Other - Medications/Allergies Allergies/Adverse Reactions: Allergies Allergy/AdvReac Type Severity Reaction Status Date / Time Penicillins Allergy Severe Anaphylaxis Verified 02/06/18 21:13 piperacillin [From Zosyn] Allergy Severe Verified 03/06/18 01:02 tazobactam [From Zosyn] Allergy Severe Verified 03/06/18 01:02 Medications: Current Medications Acetaminophen (Tylenol) 650 mg PO Q4H PRN PRN Reason: Headache/Fever/Mild Pain (1-3) Last Admin: 03/28/18 17:33 Dose: 650 mg Hydrocodone Bitart/Acetaminophen ([place] 5/325) 1 tab PO Q4H PRN PRN Reason: Moderate Pain (4-6) Last Admin: 03/28/18 23:01 Dose: 1 tab Amlodipine Besylate (Norvasc) 10 mg PO DAILY [facility] Aspirin (Ecotrin) 81 mg PO DAILY [facility] Atorvastatin Calcium (Lipitor) 10 mg PO HS [facility] Bisacodyl (Dulcolax) 10 mg PO DAILYPRN PRN PRN Reason: Constipation Bisacodyl (Dulcolax) 10 mg [place] DAILYPRN PRN PRN Reason: Constipation Calcium Acetate (Phoslo) 667 mg PO QID [facility] Last Admin: 03/28/18 23:03 Dose: 667 mg Calcium Carbonate (Tums) 1,000 mg PO Q4H PRN PRN Reason: Heartburn or Indigestion Ciprofloxacin (Cipro) 250 mg PO BID@0600,1999 [facility] Last Admin: 03/29/18 06:39 Dose: 250 mg Clonidine (Catapres) 0.2 mg PO BID [facility] Last Admin: 03/28/18 23:02 Dose: 0.2 mg Dextrose/Water (Dextrose 50%) 25 gm SLOW IVP PRN PRN PRN Reason: Hypoglycemia Enoxaparin Sodium (Lovenox) 40 mg SC 0900 [facility] Epoetin [place] (Procrit) 7,500 units SC Q7D@0900 [facility] Famotidine (Pepcid) 20 mg PO DAILY [facility] Fluoxetine HCl (Prozac) 20 mg PO DAILY [facility] Glucagon (Glucagon) 1 mg IM PRN PRN PRN Reason: Hypoglycemia Hydralazine HCl (Apresoline) 10 mg SLOW IVP Q4H PRN PRN Reason: SBP Greater Than 170 Dextrose/Water (D5w) 1,000 mls @ 0 mls/hr IV .Q0M PRN PRN Reason: Hypoglycemia Insulin Glargine 35 units/ (Miscellaneous Medication) 0.35 mls @ 0 mls/hr SC [facility] Last Admin: 03/28/18 23:02 Dose: 0.35 mls Vancomycin HCl 1.5 gm/ Sodium (Chloride) 300 mls @ 200 mls/hr IVPB WILLCALL [facility] Vancomycin HCl 1.25 gm/ Sodium (Chloride) 250 mls @ 166.667 mls/hr [facility] Vancomycin HCl 1 gm/ Device 200 mls @ 200 mls/hr IVPB [facility] Vancomycin HCl 750 mg/ Sodium (Chloride) 250 mls @ 250 mls/hr IVPB [facility] Insulin Human Lispro (Humalog) 0 units SC .MODERATE SLIDING SC PRN PRN Reason: Moderate Correctional Scale Last Admin: 03/28/18 19:02 Dose: 6 unit Insulin Human Lispro (Humalog) 0 units SC .BEDTIME SLIDING SC PRN PRN Reason: Bedtime Correctional Scale Last Admin: 03/28/18 23:01 Dose: 2 units Labetalol HCl (Normodyne) 20 mg SLOW IVP Q1H PRN PRN Reason: SBP Greater Than 170 Last Admin: 03/28/18 18:53 Dose: 20 mg Levetiracetam (Keppra) 500 mg PO BID [facility] Last Admin: 03/28/18 23:02 Dose: 500 mg Lisinopril (Zestril) 20 mg PO DAILY [facility] Loperamide HCl (Imodium) 2 mg PO PRN PRN PRN Reason: Diarrhea/Loose Stools Metronidazole (Flagyl) 250 mg PO TID [facility] Last Admin: 03/28/18 23:02 Dose: 250 mg Miscellaneous Medication (Pharmacy To Dose) 1 each IVPB PRN PRN PRN Reason: Pharmacy to dose Hold Vancomycin For (Level >20) 0 each FS .AT DIALYSIS [facility] Ondansetron HCl (Zofran Odt) 4 mg PO Q6H PRN PRN Reason: Nausea/Vomiting Ondansetron HCl (Zofran) 4 mg IVP Q6H PRN PRN Reason: Nausea/Vomiting Senna/Docusate Sodium (Senokot S) 2 tab PO BID PRN PRN Reason: Constipation Zolpidem Tartrate (Ambien) 5 mg PO HSPRN PRN PRN Reason: Insomnia
[2018-03-29 11:57] LABS: Vancomycin, Random 17.6 ug/mL (See Comment)
[2018-03-29 13:26] VITALS: BP 152/68; TEMP 98.8
[2018-03-29] MEDS: cloNIDine 0.2 MG TAB PO SCH (13:50)
[2018-03-29] MEDS: Calcium Acetate 667 MG CAP PO SCH ×2 (13:50)
[2018-03-29] MEDS: metroNIDAZOLE 250 MG TAB PO SCH ×2 (13:51→13:52)
[2018-03-29] MEDS: levETIRAcetam 500 MG TAB PO SCH (13:51)
[2018-03-29] MEDS ORDERED: Vancomycin HCl 750 MG in Sodium Chloride 0.9% 250 ML 250 ML IVPB SCH (14:15)
[2018-03-29] MEDS ORDERED: Atorvastatin Calcium 10 MG TAB PO SCH (21:00)
--- NOTE | 2018-03-30 19:54 | EKG ---
Test Reason : STROKE ALERT Blood Pressure : / mmHG Vent. Rate : 082 BPM Atrial Rate : 082 BPM P-R Int : 230 ms QRS Dur : 108 ms QT Int : 400 ms P-R-T Axes : 091 -17 028 degrees QTc Int : 467 ms Sinus rhythm with 1st degree A-V block Septal infarct , age undetermined Abnormal ECG Confirmed by DELIA DORSEY DO ([id number]), web content editor ELOY DELATORRE ([id number]) on 03/30/2018 7:53:42 PM Referred By: Confirmed By:DELIA DORSEY DO
== END 2018-03-29 14:25 | disposition home or self-care (01) ==
LOC: ERS 11:06 → 2SE 15:42
PROVIDERS: ADMIT Internal Medicine; ATTEND Internal Medicine
DX: I16.0 Hypertensive urgency (principal); R51 Headache; E78.5 Hyperlipidemia, unspecified; R29.898 Other symptoms and signs involving the musculoskeletal system; E11.40 Type 2 diabetes mellitus with diabetic neuropathy, unspecified; E11.21 Type 2 diabetes mellitus with diabetic nephropathy; I12.0 Hypertensive chronic kidney disease with stage 5 chronic kidney disease or end stage renal disease; E11.22 Type 2 diabetes mellitus with diabetic chronic kidney disease; N18.6 End stage renal disease; D63.1 Anemia in chronic kidney disease; I69.154 Hemiplegia and hemiparesis following nontraumatic intracerebral hemorrhage affecting left non-dominant side; F41.9 Anxiety disorder, unspecified; F32.9 Major depressive disorder, single episode, unspecified; G40.909 Epilepsy, unspecified, not intractable, without status epilepticus; N25.81 Secondary hyperparathyroidism of renal origin; E11.610 Type 2 diabetes mellitus with diabetic neuropathic arthropathy; E11.69 Type 2 diabetes mellitus with other specified complication; L08.89 Other specified local infections of the skin and subcutaneous tissue; E66.9 Obesity, unspecified; Z68.38 Body mass index [BMI] 38.0-38.9, adult; Z87.891 Personal history of nicotine dependence; Z79.4 Long term (current) use of insulin; Z79.899 Other long term (current) drug therapy; Z88.0 Allergy status to penicillin; Z88.1 Allergy status to other antibiotic agents; Z99.2 Dependence on renal dialysis
CPT/HCPCS: 36415; 36416; 70450; 70496; 70498; 70551; 80053; 80061; 80069; 80202; 82553; 84484; 85025; 85610; 85730; 93005; 96365; 96375; G8978-GP-CK; G8979-GP-CK; G8980-GP-CK; G8987-GO-CI; G8988-GO-CI; G8989-GO-CI; J1200; J1650; J2270; J2765; J3370; J7050; Q4081

== ENCOUNTER 2018-03-29 18:39 | Inpatient (IN) | payer MEDICARE ==
[2018-03-29 19:13] LABS: #Eosinphils 0.1 thou/uL (0.0-0.7); #Lymphocytes 1.3 thou/uL (1.20-3.40); #Monocytes 0.9 thou/uL (0.11-0.59); #Neutrophils 7.8 thou/uL (1.40-6.50); %Basophils 0.2 % (0.0-1.0); %Eosinophils 1.2 % (0.0-10.0); %Lymphocytes 12.7 % (21.0-51.0); %Monocytes 8.9 % (0.0-10.0); Mean Corpuscular HGB CONC 31.6 g/dL (32.0-36.0); Mean Corpuscular Hemoglobin 27.9 pg (27.0-31.0); Mean Corpuscular Volume 88.3 fL (78.0-98.0); Mean Platelet Volume 9.2 fL (7.4-10.4); Platelet Count 165 thou/uL (130-400); Red Blood Cell (RBC) Count 4.31 mill/uL (4.70-6.10); White Blood Cell (WBC) Count 10.2 thou/uL (4.8-10.8)
[2018-03-29 19:18] LABS: Bilirubin Negative (Negative); Blood, Urine Negative (Negative); Clarity CLEAR (Clear); Glucose, Urine (Dipstick) 250 mg/dL (Negative); Leukocyte Negative (Negative); Nitrite Negative (Negative); Protein, Urine (Dipstick) > or equal to 300 mg/dL (Neg-Trace); Specific Gravity, Urine 1.021 (1.002-1.036); Urobilinogen 0.2 mg/dL (0.2-1.0); pH, Urine 7.5 (5.0-9.0)
[2018-03-29 19:20] LABS: Bacteria/HPF None Seen HPF (None Seen); Hyaline Casts/LPF 0-3 HYALINE CAST LPF (0-3 Hyaline); Pathc Cast-AUWi Flag 0.14 (0-2.49); Squamous Epithelial 0-3 HPF (0-3)
[2018-03-29 19:21] LABS: RBC/HPF None Seen HPF (0-3)
[2018-03-29 19:33] LABS: ALT (SGPT) 8 U/L (8-55); AST (SGOT) 13 U/L (5-34); Albumin 3.3 g/dL (3.5-5.0); Alkaline Phosphatase 158 U/L (40-150); Anion Gap 12 mmol/L (10-20); BUN (Urea Nitrogen) 18 mg/dL (8.4-25.7); Bilirubin, Total 0.5 mg/dL (0.2-1.2); Calc. Creatinine Clearance 0 mL/min (70-130); Calcium 8.6 mg/dL (7.8-10.44); Carbon Dioxide 23 mmol/L (22-29); Chloride 100 mmol/L (98-107); Estimated GFR-MDRD 15; Globulin 4.2 g/dL (2.4-3.5); Glucose 218 mg/dL (70-105); Potassium 5.3 mmol/L (3.5-5.1); Protein, Total 7.5 g/dL (6.0-8.3); Sodium 130 mmol/L (136-145)
--- NOTE | 2018-03-29 19:43 | RAD ---
SINGLE VIEW OF THE CHEST: Comparison: 10-13-17 History: Altered mental status and fever. FINDINGS: Single view of the chest shows a normal sized cardiomediastinal silhouette. There is no evidence of c onsolidation, mass, or pleural effusion. The bones are unremarkable. IMPRESSION: No evidence of acute cardiopulmonary disease. POS: [facility]
[2018-03-29] MEDS ORDERED: Clindamycin/D5W 900 mg/50 ml Premix Bag ONE (20:09)
[2018-03-29] MEDS ORDERED: Vancomycin HCl 1.5 GM in Sodium Chloride 0.9% 250 ML 300 ML IVPB SCH (20:15)
[2018-03-29] MEDS ORDERED: Ondansetron PF 4 MG/2 ML Vial IVP PRN (20:39)
[2018-03-29] MEDS ORDERED: Ondansetron ODT 4 MG TAB PO PRN (20:39)
[2018-03-29] MEDS ORDERED: Dextrose 50% Abboject 50 ML SYRINGE SLOW IVP PRN (20:46)
[2018-03-29] MEDS ORDERED: Dextrose 5% in Water 1,000 ML IV PRN (20:46)
[2018-03-29] MEDS ORDERED: HumaLOG 300 UNITS/3 ML VIAL SC PRN (20:46)
--- NOTE | 2018-03-29 21:39 | RAD ---
THREE VIEWS OF THE RIGHT FOOT: 03/29/18 COMPARISON: 03/05/18. HISTORY: Right foot pain. Evaluate for osteomyelitis. FINDINGS: Three views of the right foot shows the patient to be status post amputation of the distal aspect of the foot. The changes in the amputation stumps have not changed compared to the prior examination. Th e calcaneus is fractured and irregular in appearance. This has not changed significantly since the pr ior examination. Soft tissue swelling of the hindfoot is seen and these findings are concerning for o steomyelitis. IMPRESSION: Likely osteomyelitis of the calcaneus. POS: [facility]
[2018-03-29] MEDS ORDERED: Aztreonam 2 GM in Sodium Chloride 0.9% 100 ML IVPB SCH (22:00)
[2018-03-29 23:16] LABS: Lactic Acid 1.2 mmol/L (0.5-2.2)
[2018-03-29] MEDS: Famotidine/PF 20 mg/2ml Vial SLOW IVP SCH (23:25)
[2018-03-29] MEDS: cloNIDine 0.2 MG TAB PO SCH (23:26)
[2018-03-29] MEDS: Calcium Acetate 667 MG CAP PO SCH (23:27)
[2018-03-29] MEDS: Sevelamer Carbonate 800 MG TAB PO SCH (23:27)
[2018-03-29] MEDS: Famotidine 20 MG TAB PO SCH (23:27)
[2018-03-29] MEDS: Atorvastatin Calcium 10 MG TAB PO SCH (23:27)
[2018-03-29] MEDS: Calcium Carbonate 500 MG ChewTAB PO SCH (23:27)
[2018-03-29] MEDS: Heparin 5,000 UNITS/ML VIAL SC SCH (23:28)
[2018-03-30 05:04] LABS: #Eosinphils 0.1 thou/uL (0.0-0.7); #Lymphocytes 2.2 thou/uL (1.20-3.40); #Monocytes 1.1 thou/uL (0.11-0.59); #Neutrophils 5.1 thou/uL (1.40-6.50); %Basophils 0.2 % (0.0-1.0); %Eosinophils 1.5 % (0.0-10.0); %Lymphocytes 25.4 % (21.0-51.0); %Monocytes 12.6 % (0.0-10.0); %Neutrophils 60.3 % (42.0-75.0); Hemoglobin 10.8 g/dL (14.0-18.0); Mean Corpuscular HGB CONC 31.4 g/dL (32.0-36.0); Mean Platelet Volume 9.5 fL (7.4-10.4); Platelet Count 141 thou/uL (130-400); RBC Distribution Width 18.9 % (11.5-14.5); Red Blood Cell (RBC) Count 3.87 mill/uL (4.70-6.10); White Blood Cell (WBC) Count 8.5 thou/uL (4.8-10.8)
[2018-03-30 05:24] LABS: Anion Gap 11 mmol/L (10-20); BUN (Urea Nitrogen) 24 mg/dL (8.4-25.7); Calc. Creatinine Clearance 0 mL/min (70-130); Calcium 8.2 mg/dL (7.8-10.44); Carbon Dioxide 23 mmol/L (22-29); Chloride 101 mmol/L (98-107); Estimated GFR-MDRD 13; Glucose 179 mg/dL (70-105); Potassium 4.9 mmol/L (3.5-5.1); Sodium 130 mmol/L (136-145)
[2018-03-30] MEDS: Heparin 5,000 UNITS/ML VIAL SC SCH ×2 (07:52→21:51)
[2018-03-30] MEDS: Calcium Carbonate 500 MG ChewTAB PO SCH ×3 (07:52→21:50)
[2018-03-30] MEDS: Lisinopril 20 MG TAB PO SCH (07:52)
[2018-03-30] MEDS: Sevelamer Carbonate 800 MG TAB PO SCH ×3 (07:53→21:51)
[2018-03-30] MEDS: Amlodipine 10 MG TAB PO SCH (07:53)
[2018-03-30] MEDS: Aspirin 81 mg Enteric Coated Tablet PO SCH (07:53)
[2018-03-30] MEDS: Calcium Acetate 667 MG CAP PO SCH ×5 (07:53→21:51)
[2018-03-30] MEDS: FLUoxetine HCl 20 MG CAP PO SCH (07:53)
[2018-03-30 08:28] LABS: Vancomycin, Random 38.1 ug/mL (See Comment)
[2018-03-30] MEDS ORDERED: HOLD VANCOMYCIN FOR LEVEL >20 FS SCH (09:00)
[2018-03-30] MEDS ORDERED: Vancomycin HCl 1.25 GM in Sodium Chloride 0.9% 250 ML 250 ML IVPB SCH (09:00)
[2018-03-30] MEDS ORDERED: Vancomycin HCl 1 GM in Premix Bag 1 BAG IVPB SCH (09:00)
[2018-03-30] MEDS ORDERED: Vancomycin HCl 750 MG in Sodium Chloride 0.9% 250 ML 250 ML IVPB SCH (09:00)
[2018-03-30] MEDS ORDERED: Vancomycin HCl 1.5 GM in Sodium Chloride 0.9% 250 ML 300 ML IVPB SCH (09:00)
--- NOTE | 2018-03-30 09:51 | HP ---
CHIEF COMPLAINT: Fever. HISTORY OF PRESENT ILLNESS: This is a 57-year-old male with past medical history significant for type 2 diabetes mellitus, hypertension, CVA x3 with left-sided residual, renal insufficiency, on hemodialysis Sunday, Sunday, and Sunday, with osteomyelitis of left foot, presenting with fever of 102. Per patient, he states that he feels like he was confused and he did not know what was going on, but per electronic medical records, EMS, and medical staff, the patient was brought in to the hospital around 1700 hours when the patient started having some confusion, alteration of awareness, and fever. Per records, the patient do have a diabetic foot wound to the right heel, and is currently being treated by [facility]. The patient has been in the hospital numerous times for evaluating this right foot ulcer/osteomyelitis. At this point, the patient denies any pain. The patient denies any chest pain, palpitations, abdominal pain, dysuria, hematuria, hematochezia, or melena, and endorses some confusion and fever. Of note, the patient was recently seen in our hospital for chief complaint of headaches. During that time, the patient was diagnosed with hypertensive urgency and diabetic foot infection and the patient was treated with some antibiotics and, for the blood pressure, the patient was given appropriate antihypertensive medications. REVIEW OF SYSTEMS: Positive for fever, generalized weakness, malaise, and some confusion, otherwise as documented in the HPI, all other systems were reviewed and are negative. FAMILY HISTORY: Reviewed and noncontributory to this visit. PAST SURGICAL HISTORY: Surgical history of amputation to the patient's toes of the right foot, cholecystectomy, tonsillectomy, end-stage renal disease with dialysis shunt at the left upper arm, craniotomy status post hemorrhagic stroke. PSYCHIATRIC HISTORY: The patient does not have any psychiatric history. SOCIAL HISTORY: The patient denies alcohol use, denies illicit drug use. The patient is a former tobacco abuser. The patient smoked cigarettes and the patient quit more than 10 years ago. The patient lives at home with family. ALLERGIES: THE PATIENT IS ALLERGIC TO PENICILLINS. CURRENT MEDICATIONS: The patient is on calcium acetate 667 mg, vitamin D3 2000 , amlodipine 10 mg a day, fluoxetine 20 mg overall a day, metronidazole 500 mg, omega-3, NovoLog, and atorvastatin. PHYSICAL EXAMINATION: VITAL SIGNS: Blood pressure is 134/56, pulse of 86, respiratory rate of 16, O2 sat is 96 on room air, and temp was 99.6. GENERAL: The patient is lying in bed, sleepy. At this point, the patient is alert and oriented x3, and the patient states that he felt confused before. The patient is able to speak in full sentences. HEENT: Normocephalic and atraumatic. Pupils are equally round and reactive to light. Extraocular movements are intact. No scleral icterus. No conjunctival pallor. No nystagmus. Mucous membranes are dry. NECK: Supple. Nontender. Trachea is midline. LUNGS: Clear to auscultation bilaterally. No wheezing, no rales, no rhonchi appreciated. CARDIAC: Positive S1 and S2. Regular rate and rhythm. No murmurs, no gallops appreciated. ABDOMEN: Soft, nontender, nondistended. No pulsatile masses. No peritoneal signs. No rigidity, no guarding. EXTREMITIES: The patient has 5/5 upper extremity strength with good pulses bilaterally at the radial pulses and the patient do have a right upper arm fistula with a positive thrill. Lower extremities; compared to the left lower extremity, the patient has diabetic ulcer to the right heel and the patient has no edema noted, no erythema, no purulence, no discharge. NEUROLOGIC: Cranial nerves 2 through 12 grossly intact. No neurologic deficits noted. SKIN: Warm, dry, and intact. PSYCH: Normal affect. DIAGNOSTIC FINDINGS: of the chest showed no congestive heart failure, no effusion, no free air, no cardiomegaly, no infiltrates. Lower extremity, right foot x-ray showed likely osteomyelitis of the calcaneous. LABORATORY DATA: WBC of 10.2, hemoglobin of 12.0, platelet count is 165. Sodium is 130, potassium is 5.3, creatinine is 4.19, GFR is 15, glucose is 218. Alk phos 158, AST and ALT 13 and 8 respectively. Urine drug tox is negative. ASSESSMENT AND PLAN: This is a 57-year-old male being admitted for: 1. Fever likely due to right foot osteomyelitis. At this point, we will continue the patient on antibiotics, and we have consulted Dr. Stearns who is the ID physician, we will follow up with his recommendations. 2. Hypertension. We will continue to monitor the patient's blood pressure closely, we will continue to adjust the patient's blood pressure medications and treat the patient accordingly. 3. Hyperlipidemia. We will continue the patient on his home dose medication. 4. Anxiety and depression, currently stable. We will monitor the patient. 5. Diabetes mellitus type 2, uncontrolled. We will give the patient insulin sliding scale and we will keep the patient's blood sugars between 140 to 180. 6. Diabetic neuropathy and nephropathy. We will continue the patient on current medications. 7. End-stage renal disease, on hemodialysis. We will continue the patient on hemodialysis. Nephrology has been consulted. We will follow with their recommendations. 8. History of seizure disorder, currently stable. We will continue to monitor the patient. 9. DVT and GI prophylaxis. Job ID: [id number]
--- NOTE | 2018-03-30 12:25 | PRG ---
DATE OF SERVICE: 03/30/2018 SUBJECTIVE: Mr. Hernandez is a 57-year-old white male with ESRD and he was admitted for generalized leg weakness. at that time, he was noted to be stable. Associated with leg weakness was some confusion. We are now following up this patient for his maintenance hemodialysis. He did receive his regular dialysis yesterday. He is feeling better this morning. His strength is a little improved. He denies any chest pain or shortness of breath. OBJECTIVE: VITAL SIGNS: Blood pressure is 134/62, heart rate is 77, respiratory rate 16, O2 saturation 96% on room air. Temperature 98.8. GENERAL: He is noted to be awake, alert, comfortable, not in distress. SKIN: Adequate turgor. HEENT: He has pinkish conjunctivae, anicteric sclerae. NECK: No neck mass. No carotid bruits. No JVD. CHEST: No deformities. LUNGS: Decreased breath sounds. HEART: Normal sinus rhythm. No murmurs, no gallops, no rubs. ABDOMEN: Globular, soft, nontender. No masses. EXTREMITIES: No edema. Positive for chronic leg wound. MEDICATIONS: Medications of March 30, 2018 was reviewed. LABORATORIES: Laboratories of March 30, 2018, white count 8.5, hemoglobin 10.8. Sodium 130, potassium 4.9, chloride 101, carbon dioxide 23, BUN 24, creatinine 4.8, glucose 179, calcium 8.2. On March 30, 2018, vancomycin level was 38.1. Chest x-ray, no CHF and no infiltrates. ASSESSMENT AND PLAN: 1. End-stage renal disease stable. No indication for any emergent hemodialysis. We will continue Sunday, Sunday, and Sunday dialysis. He is not in volume overload. His potassium is within normal. 2. Chronic leg infection, currently on IV vancomycin until the third week of March. 3. Borderline anemia-the patient received Epogen this week. We will repeat Epogen dosing by next week. 4. Generalized [id number] evidence of acute cerebrovascular accident with an MRI done a few days ago. Continue to observe. Job ID: [id number]
--- NOTE | 2018-03-30 13:12 | PDOC.PN ---
- Subjective Encounter Start Date: 03/30/18 Encounter Start Time: 11:00 - Objective Resuscitation Status - Order Detail: 03/29/18 20:39 Resuscitation Status Routine Resuscitation Status: FULL: Full Resuscitation Vital Signs & Weight: Vital Signs (12 hours) Temp Pulse Resp BP BP Pulse Ox 03/30/18 11:33 98.7 F 78 16 136/68 97 03/30/18 08:00 96 03/30/18 07:53 77 134/62 03/30/18 07:52 134/62 03/30/18 07:27 98.8 F 77 16 134/62 96 03/30/18 04:00 98.4 F 75 16 154/74 H 95 Weight Weight 8.339 oz Result Diagrams: 03/30/18 04:22 03/30/18 04:22 Additional Labs: Accuchecks 03/30/18 03/30/18 03/29/18 11:32 05:10 22:57 POC Glucose 165 H 167 H 173 H Phys Exam - Physical Examination Constitutional: NAD Respiratory: no wheezing, no rales, no rhonchi, clear to auscultation bilateral Cardiovascular: RRR, no significant murmur, no rub Gastrointestinal: soft, non-tender, no distention, positive bowel sounds Musculoskeletal: no edema Right foot with multiple deformities. Toes surgically absent. Charcot joint. No sensation. Erythema with heel ulcer. No drng. Loss of sensation to right foot. Psychiatric: normal affect, A&O x 3 Dx/Plan (1) Acute osteomyelitis of calcaneum Code(s): M86.179 - OTHER ACUTE OSTEOMYELITIS, UNSPECIFIED ANKLE AND FOOT Status: Acute Comment: IV Vancomycin. Consult ID, Surgery. Prior amputations by Dr. Wood. (2) DM2 (diabetes mellitus, type 2) Status: Chronic Qualifiers: Comment: Carb consistent diet, accuchecks, SSI. (3) Diabetic neuropathic arthropathy Code(s): E11.610 - TYPE 2 DIABETES MELLITUS W DIABETIC NEUROPATHIC ARTHROPATHY Status: Chronic (4) ESRD (end stage renal disease) on dialysis Code(s): N18.6 - END STAGE RENAL DISEASE; Z99.2 - DEPENDENCE ON RENAL DIALYSIS Status: Chronic Comment: Dr. Dalal consulted. Stay on usual HD regimen. (5) HTN (hypertension) Code(s): I10 - ESSENTIAL (PRIMARY) HYPERTENSION Status: Chronic Qualifiers: Comment: Amlodipine, Zestril - Plan * Continue IV Vanc until eval's by ID and Surg. * Reports he had recommendation for more aggressive amputation in the past, but declined. * DVT prophylaxis with Heparin as tolerated. * Continue dialysis.
[2018-03-30] MEDS: cloNIDine 0.2 MG TAB PO SCH ×2 (13:28→21:51)
[2018-03-30] MEDS: Acetaminophen 325 MG TAB PO PRN ×2 (15:54→22:49)
[2018-03-30] MEDS: HumaLOG 300 UNITS/3 ML VIAL SC PRN (17:54)
[2018-03-30] MEDS: Famotidine 20 MG TAB PO SCH (21:51)
[2018-03-30] MEDS: Famotidine/PF 20 mg/2ml Vial SLOW IVP SCH (21:51)
[2018-03-30] MEDS: Atorvastatin Calcium 10 MG TAB PO SCH (21:51)
--- NOTE | 2018-03-31 01:25 | CON ---
DATE OF CONSULTATION: REASON FOR CONSULTATION: Right calcaneous osteomyelitis. HISTORY OF PRESENT ILLNESS: Mr. Hernandez is a 57-year-old man with a chronic wound of his left heel for several months. He has been on IV antibiotics under Dr. Stearns' care, but states that this foot continues to swell. He came into the hospital this time because he was having fevers up to 102 and was feeling confused. He is not having any pain in his foot, but it is quite swollen. He states that he has had multiple wounds on his right foot, which has been debrided in the past by Dr. Kruger and these wounds have healed, but he still has some superficial wounds on his heel. He states that he wears an offloading boot to ambulate and was ambulating as recently as yesterday, but today, was very weak and required assistance by Physical Therapy to even stand. PAST MEDICAL HISTORY: The patient does have an extensive past medical history of diabetes, hypertension, stroke with resulting left hemiparesis, end-stage renal failure on chronic dialysis. PAST SURGICAL HISTORY: Includes partial amputation of toes on both feet, cholecystectomy, tonsillectomy, left upper arm AV fistula and craniotomy following his stroke. FAMILY HISTORY: Noncontributory. REVIEW OF SYSTEMS: A 10-system review of systems is negative except per HPI. SOCIAL HISTORY: The patient does not smoke, drink, or use illicit drugs. He did smoke previously, but quit over a decade ago. His and daughter accompany him and are supportive. OUTPATIENT MEDICATIONS: Include: 1. Insulin. 2. Fish oil. 3. IV vancomycin. 4. Amlodipine. 5. Aspirin. 6. Atorvastatin. 7. Calcium. 8. Vitamin D3. 9. Clonidine. 10. Prozac. 11. Lisinopril. 12. Renvela. ALLERGIES: HE REPORTS ALLERGIES TO PENICILLIN AND ZOSYN. PHYSICAL EXAMINATION: VITAL SIGNS: The patient has been febrile. Heart rate mostly in the 70s and went up into the 90s with fever, 94% saturated on room air, blood pressure 166/67. GENERAL: Reveals a pleasant man in no acute distress. He is not flushed or toxic in appearance. He is not jaundiced or icteric. HEENT: Unremarkable. NECK: Supple without lymphadenopathy or thyroid nodules. HEART: Regular in its rate and rhythm without murmurs, rubs, or gallops. LUNGS: Clear to auscultation bilaterally. ABDOMEN: Soft, nontender, and nondistended. EXTREMITIES: Warm and well perfused with palpable pedal pulses. His left foot has a heel partial amputation of the toe and no open wounds. His right foot has an eschar which is not stageable on the posterior heel. There is no expressible drainage from this and no underlying fluctuance, but the entire right foot is very swollen and plum shaped. He does not have any cellulitis or lymphangitis, and does not have any significant swelling of the leg as well as the ankle. He has an excellent thrill in his left upper arm AV fistula. NEUROLOGIC: Mild left-sided weakness and generalized weakness. PSYCHIATRIC: Alert, oriented, and appropriate. LABORATORY DATA: White count is actually normal at 8.5 without a left shift. Hematocrit is 34 and platelets are 141. Coags were normal on admission. Electrolytes are unremarkable. BUN and creatinine are 24 and 4.8. Blood sugars have ranged from 167 to 250. X-rays of his right foot are reviewed and there is extensive destruction of the calcaneous with destruction of the normal alignment and anatomy. ASSESSMENT AND PLAN: Osteomyelitis of the right calcaneous. He has been on IV antibiotics for 2 months without improvement and presented with signs and symptoms of sepsis likely related to this. Surgically, I have nothing to offer him short of [id number]. The patient has considered this in the past and feels ready to proceed with it at this point. He states that he has been struggling with infection in his right foot for the past year and would prefer to proceed with amputation and prosthesis placement. He understands that he will need rehab postoperative especially given his pre-existing left-sided weakness from his CVA. It maybe more difficult for him to ambulate with a prosthesis. However, I do not believe that he will ever heal his calcaneous adequately to support his ways easily. The procedure of right [id number] was discussed in detail with the patient. Since he appears to have a chronic infection which does not expand above the level of the calcaneus, I planned to do this as a single-stage operation. Inherent risks include but are not limited to bleeding, infection, risks of anesthesia, and healing problems. He understands and accepts these risks and wishes to proceed. I have placed him on the OR schedule for tomorrow. He is going to discuss his decision with his Infectious Disease doctor and the nurse is to contact me if he changes his mind. Job ID: [id number]
[2018-03-31 05:39] LABS: #Eosinphils 0.1 thou/uL (0.0-0.7); #Lymphocytes 2.1 thou/uL (1.20-3.40); #Monocytes 1.2 thou/uL (0.11-0.59); #Neutrophils 6.8 thou/uL (1.40-6.50); %Eosinophils 1.4 % (0.0-10.0); %Lymphocytes 20.5 % (21.0-51.0); %Monocytes 11.8 % (0.0-10.0); %Neutrophils 66.4 % (42.0-75.0); Hemoglobin 10.1 g/dL (14.0-18.0); Mean Corpuscular HGB CONC 31.9 g/dL (32.0-36.0); Mean Corpuscular Hemoglobin 27.8 pg (27.0-31.0); Mean Corpuscular Volume 87.2 fL (78.0-98.0); Mean Platelet Volume 9.6 fL (7.4-10.4); Platelet Count 148 thou/uL (130-400); RBC Distribution Width 18.1 % (11.5-14.5); Red Blood Cell (RBC) Count 3.63 mill/uL (4.70-6.10); White Blood Cell (WBC) Count 10.3 thou/uL (4.8-10.8)
[2018-03-31 05:43] LABS: INR-International Normal Ratio 1.4; PTT 46.3 SEC (22.9-36.1); Prothrombin Time 16.8 SEC (12.0-14.7)
[2018-03-31 05:56] LABS: Anion Gap 16 mmol/L (10-20); BUN (Urea Nitrogen) 41 mg/dL (8.4-25.7); Calc. Creatinine Clearance 0 mL/min (70-130); Calcium 8.5 mg/dL (7.8-10.44); Carbon Dioxide 22 mmol/L (22-29); Chloride 100 mmol/L (98-107); Estimated GFR-MDRD 9; Glucose 119 mg/dL (70-105); Magnesium 2.2 mg/dL (1.6-2.6); Potassium 5.5 mmol/L (3.5-5.1); Sodium 132 mmol/L (136-145)
[2018-03-31] MEDS: Amlodipine 10 MG TAB PO SCH ×2 (08:49→09:30)
[2018-03-31] MEDS: Aspirin 81 mg Enteric Coated Tablet PO SCH ×2 (08:49→09:30)
[2018-03-31] MEDS: Calcium Acetate 667 MG CAP PO SCH ×5 (08:49→20:20)
[2018-03-31] MEDS: FLUoxetine HCl 20 MG CAP PO SCH ×2 (08:50→09:30)
[2018-03-31] MEDS: Lisinopril 20 MG TAB PO SCH ×2 (08:50→09:29)
[2018-03-31] MEDS: Sevelamer Carbonate 800 MG TAB PO SCH ×4 (08:50→20:22)
[2018-03-31] MEDS: Heparin 5,000 UNITS/ML VIAL SC SCH ×3 (08:50→20:24)
[2018-03-31] MEDS: Calcium Carbonate 500 MG ChewTAB PO SCH ×4 (08:50→20:20)
[2018-03-31] MEDS: cloNIDine 0.2 MG TAB PO SCH ×3 (08:50→20:20)
[2018-03-31] MEDS ORDERED: Fentanyl 100 MCG/2 ML VIAL ONE (12:23)
[2018-03-31 13:00] VITALS: BMI 38.2
[2018-03-31] MEDS ORDERED: Epoetin (ESRD) 20,000 UNITS/ML SC SCH (13:00)
[2018-03-31 16:14] LABS: Vancomycin, Random 27.6 ug/mL (See Comment)
[2018-03-31] MEDS: Atorvastatin Calcium 10 MG TAB PO SCH (20:19)
[2018-03-31] MEDS: Famotidine 20 MG TAB PO SCH (20:21)
[2018-03-31] MEDS: Famotidine/PF 20 mg/2ml Vial SLOW IVP SCH (20:22)
--- NOTE | 2018-03-31 21:28 | PDOC.PN ---
- Subjective Encounter Start Date: 03/31/18 Encounter Start Time: 13:00 Feels ok today. Only feels a little sleepy. No other complaints. - Objective Resuscitation Status - Order Detail: 03/29/18 20:39 Resuscitation Status Routine Resuscitation Status: FULL: Full Resuscitation Vital Signs & Weight: Vital Signs (12 hours) Temp Pulse Resp BP BP Pulse Ox 03/31/18 21:00 95 03/31/18 11:00 97.9 F 75 18 158/75 H 93 L 03/31/18 09:30 74 121/64 03/31/18 09:29 121/64 Weight Admit Weight 244 lb 9.6 oz Weight 244 lb 9.6 oz I&O: 03/30/18 03/31/18 04/01/18 06:59 06:59 06:59 Intake Total 1290 420 Balance 1290 420 Result Diagrams: 03/31/18 04:42 03/31/18 04:42 Additional Labs: Accuchecks 03/31/18 03/31/18 03/31/18 19:49 11:09 04:37 POC Glucose 134 H 126 H 117 H 03/30/18 21:58 POC Glucose 143 H Phys Exam - Physical Examination Constitutional: NAD Respiratory: no wheezing, no rales, no rhonchi, clear to auscultation bilateral Cardiovascular: RRR, no significant murmur Gastrointestinal: soft, non-tender, no distention, positive bowel sounds Right foot with wound dressing. Psychiatric: normal affect, A&O x 3 Skin: no rash Dx/Plan (1) Acute osteomyelitis of calcaneum Code(s): M86.179 - OTHER ACUTE OSTEOMYELITIS, UNSPECIFIED ANKLE AND FOOT Status: Acute Comment: IV Vancomycin/Aztrenam. Consult ID, Surgery. Prior amputations by Dr. Wood. (2) DM2 (diabetes mellitus, type 2) Status: Chronic Qualifiers: Comment: Carb consistent diet, accuchecks, SSI. (3) Diabetic neuropathic arthropathy Code(s): E11.610 - TYPE 2 DIABETES MELLITUS W DIABETIC NEUROPATHIC ARTHROPATHY Status: Chronic (4) ESRD (end stage renal disease) on dialysis Code(s): N18.6 - END STAGE RENAL DISEASE; Z99.2 - DEPENDENCE ON RENAL DIALYSIS Status: Chronic Comment: Dr. Dalal consulted. Stay on usual HD regimen. (5) HTN (hypertension) Code(s): I10 - ESSENTIAL (PRIMARY) HYPERTENSION Status: Chronic Qualifiers: Comment: Amlodipine, Zestril (6) MRSA (methicillin resistant Staphylococcus aureus) infection Code(s): A49.02 - METHICILLIN RESIS STAPH INFECTION, UNSP SITE Status: Acute (7) E coli infection Status: Acute - Plan * Surgery following. BKA pending. Postponed until after dialysis to manage potassium. Continue abx. MRSA Isolation.
[2018-04-01 05:37] LABS: #Eosinphils 0.2 thou/uL (0.0-0.7); #Lymphocytes 1.5 thou/uL (1.20-3.40); #Monocytes 0.9 thou/uL (0.11-0.59); #Neutrophils 5.4 thou/uL (1.40-6.50); %Basophils 0.3 % (0.0-1.0); %Eosinophils 1.9 % (0.0-10.0); %Neutrophils 67.8 % (42.0-75.0); Hemoglobin 10.7 g/dL (14.0-18.0); Mean Corpuscular HGB CONC 31.2 g/dL (32.0-36.0); Mean Corpuscular Volume 86.7 fL (78.0-98.0); Mean Platelet Volume 9.1 fL (7.4-10.4); Platelet Count 183 thou/uL (130-400); RBC Distribution Width 18.1 % (11.5-14.5); Red Blood Cell (RBC) Count 3.96 mill/uL (4.70-6.10)
[2018-04-01 05:48] LABS: Anion Gap 14 mmol/L (10-20); BUN (Urea Nitrogen) 31 mg/dL (8.4-25.7); Calc. Creatinine Clearance 26 mL/min (70-130); Calcium 8.7 mg/dL (7.8-10.44); Carbon Dioxide 26 mmol/L (22-29); Chloride 99 mmol/L (98-107); Estimated GFR-MDRD 13; Glucose 197 mg/dL (70-105); Potassium 4.5 mmol/L (3.5-5.1); Sodium 134 mmol/L (136-145)
--- NOTE | 2018-04-01 07:49 | PRG ---
DATE OF SERVICE: 03/31/2018 RENAL MEDICINE SUBJECTIVE: Mr. Hernandez is a 57-year-old male with ESRD and being followed up for his maintenance hemodialysis. The patient has been seen by surgeon, the recommendation for him to undergo right BKA. Due to the high potassium of 5.5 today, we will do the hemodialysis with this patient prior to his planned surgery tomorrow. He voices no new complaints. I did explain to the patient about the mildly elevated potassium, he agrees to do an earlier dialysis. OBJECTIVE: VITAL SIGNS: Blood pressure is 158/75, heart rate 75, respiratory rate 18, temperature 97.9, and pulse ox 93%. GENERAL: Noted to be awake, alert, comfortable, obese, not in distress. SKIN: Adequate turgor. HEENT: Pinkish conjunctivae. Anicteric sclerae. No neck mass. No carotid bruits. No JVD. CHEST: No deformities. LUNGS: Clear breath sounds. HEART: Normal sinus rhythm. No murmur. No gallops. No rubs. ABDOMEN: Globular, soft, and nontender. No masses. EXTREMITIES: No edema. No deformities. Positive for right foot dressing. MEDICATIONS: Medications of March 31, 2018, was reviewed. LABORATORY DATA: Laboratories of March 31, 2018; white count 10.3, hemoglobin 10.1. Sodium 132, potassium 5.5, chloride 100, carbon dioxide 22, BUN 41, creatinine 6.53, glucose 119, calcium 8.5, magnesium 2.2. ASSESSMENT AND PLAN: 1. Peripheral vascular disease-nonhealing foot ulcers-for right below knee amputation tomorrow, on IV antibiotics. 2. End-stage renal disease, stable. We will do hemodialysis for 4 hours today due to the mild hyperkalemia and in preparation for the planned surgery tomorrow. We will then resume back Sunday hemodialysis regimen within this following week. 3. Anemia. Start Epogen. Agree with current management. Job ID: [id number]
--- NOTE | 2018-04-01 07:51 | CON ---
DATE OF CONSULTATION: 03/31/2018 REASON FOR CONSULT: Concern with right foot changes. HISTORY OF PRESENT ILLNESS: A 57-year-old known to us from prior visits, who has a longstanding history of type 2 diabetes mellitus with end-stage renal disease, hypertension, on hemodialysis with AV fistula, and Charcot arthropathy in right and left feet. After extensive evaluation, the patient has been receiving treatment for right foot inflammatory changes. Treatment has included oral ciprofloxacin and Flagyl and intravenous vancomycin, sliding scale. The patient was brought in at this time with fever. He was a little bit confused and did not know what transpired. He was brought to the hospital. The fever had started at the night of the admission. There are no symptoms of headaches. No cough or shortness of breath. No chest pain or abdominal pain. No diarrhea. In the emergency room, his temperature was 101.3 and the exam was fairly unremarkable. His right foot was actually fairly stable compared with the previous findings. The ulcer in the heel had red 100% granulation tissue at the base. Initial findings include a white cell count 10.2, hemoglobin 12, and platelets 165 and the blood cultures have been negative thus far. Influenza was negative. Currently, Mr. Hernandez is awake. He seems to be oriented and he says that he has no pain in the right foot area, maybe a little bit of soreness when he is walking on it. PAST MEDICAL HISTORY: Includes type 2 diabetes, neuropathy, complications of right and left feet with Charcot arthropathy, right heel fracture with a question of osteomyelitis. Empiric treatment for osteomyelitis has been initiated, although there was still a question of just plain Charcot arthropathy. PAST SURGICAL HISTORY: AV fistula placement and cholecystectomy. SOCIAL HISTORY: Former smoker, quit many years ago. Lives at home with family. FAMILY HISTORY: Noncontributory. ALLERGIES: PENICILLIN. CURRENT MEDICATIONS LIST: 1. Tylenol. 2. Norvasc. 3. Ecotrin. 4. Lipitor. 5. Aztreonam. 6. PhosLo. 7. Tums. 8. Catapres. 9. Pepcid. 10. Prozac. 11. Glucagon. 12. Heparin. 13. Insulin. 14. Zestril. 15. Zofran. 16. Vancomycin. 17. Sliding scale. PHYSICAL EXAMINATION: VITAL SIGNS: The physical examination showed the vital signs with a T-max 102.7, is now 97.9, BP 158/75, pulse 75, respirations 18, and O2 saturation 93% on room air. GENERAL: He appears in no distress. Awake and oriented. SKIN: Shows the right foot ulcer round-shaped. It appears smaller than previously. No drainage and with 100% granulation, which is an improvement compared with previous. The heel area and mid foot region appears stable. There is no tenderness noted. HEENT: The patient has no lymphadenopathy. Ocular movements are dysconjugate. 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 Oral cavity is not remarkable. NECK: Supple. LUNGS: Symmetric. Clear breath sounds. HEART: S1 and S2. Regular rate. No S3 or S4. ABDOMEN: Soft, not distended or tender. No ascites. No bladder distention. EXTREMITIES: Pulses are 1+ in dorsalis pedis. He has got 1+ edema in lower extremities. LABORATORY DATA: White cell count 10.2, hemoglobin 12, platelets 165, and 77% neutrophils. INR 1.4. Sodium 132, creatinine 6.53, potassium 5.5, AST 13, ALT 8, alkaline phosphatase 158, and albumin 3.3. Urinalysis was fairly unremarkable. We have two sets of blood cultures thus far negative. Urine culture, no growth for 48 hours and we have a followup foot x-ray with fractured calcaneus with irregular appearance without change compared with prior exam. There is a chest x-ray with no evidence of acute cardiopulmonary disease. ASSESSMENT: 1. End-stage renal disease associated with type 2 diabetes mellitus. 2. Charcot arthropathy, right and left feet. 3. Prior partial amputations and then transmetatarsal amputations of multiple rays, right and left feet. 4. Chronic fractures, destructive changes in the right heel, which could be related to Charcot arthropathy, but there is a concern with superimposed osteomyelitis. The diagnosis of osteomyelitis is based on limited information and in view of the false-positive findings that can be seen in the situation of Charcot, it is possible that this represents Charcot only without any superimposed infection. The findings in the right foot had been very stable over the course of the past few months, so it is hard to believe that this represents an uncontrolled infectious process there. Although below the knee amputation has been considered, another approach would be to either continue treating with antimicrobial therapy or do an aspirate guided by ultrasound or fluoroscopy to submit for cultures and see if there is any positivity after withholding antimicrobial therapy. Job ID: [id number]
[2018-04-01] MEDS: Heparin 5,000 UNITS/ML VIAL SC SCH ×2 (09:03→20:21)
[2018-04-01] MEDS: Calcium Carbonate 500 MG ChewTAB PO SCH ×3 (09:03→20:21)
[2018-04-01] MEDS: Sevelamer Carbonate 800 MG TAB PO SCH ×3 (09:03→20:20)
[2018-04-01] MEDS: Calcium Acetate 667 MG CAP PO SCH ×4 (09:04→20:20)
[2018-04-01] MEDS: Aspirin 81 mg Enteric Coated Tablet PO SCH (09:04)
[2018-04-01] MEDS: Amlodipine 10 MG TAB PO SCH (09:05)
[2018-04-01] MEDS: Lisinopril 20 MG TAB PO SCH (09:05)
[2018-04-01] MEDS: cloNIDine 0.2 MG TAB PO SCH ×2 (09:05→20:20)
[2018-04-01] MEDS: FLUoxetine HCl 20 MG CAP PO SCH (09:05)
[2018-04-01] MEDS ORDERED: Fentanyl 100 MCG/2 ML VIAL ONE (12:45)
[2018-04-01] MEDS ORDERED: HYDROmorphone 2 MG/ML VIAL ONE (12:45)
--- NOTE | 2018-04-01 13:37 | HP ---
HISTORY OF PRESENT ILLNESS: Rene Hernandez is a 57-year-old male, well known to me. He is a diabetic in end-stage renal disease. I have seen him previously for incision and drainage of right foot abscess. Previous x-rays have not revealed osteomyelitis. He has been receiving intravenous antibiotics with dialysis for the past several weeks. He was readmitted on this occasion because of increased right foot swelling. X-rays of his right foot on 03/29/2018 reveals osteomyelitis of the calcaneus with severe soft tissue swelling of the foot. Dr. Stearns is seeing him as well as Dr. Crandall, who is covering for me. On the plantar aspect of his foot, the previous wound extends to the calcaneus on probing. Blood cultures are negative today. Cultures on 03/29/2018 of the foot, source uncertain how they were obtained, does reveal Escherichia coli MRSA. ALLERGIES: PENICILLIN, PIPERACILLIN, TAZOBACTAM. TOBACCO: None. ALCOHOL: None. PAST MEDICAL HISTORY: End-stage renal disease, on maintenance dialysis, history of prior stroke with left hemiparesis. PAST SURGICAL HISTORY: Partial amputations of toes and feet, cholecystectomy, tonsillectomy, left upper arm dialysis fistula, prior craniotomy following a stroke, tobacco cessation more than 10 years ago. OUTPATIENT MEDICATIONS: Insulin, fish oil, vancomycin during dialysis, sliding scale, amlodipine, aspirin, atorvastatin, calcium, clonidine, Prozac, lisinopril, and Renvela. PHYSICAL EXAMINATION: VITAL SIGNS: 5 feet 7 inches, 244 pounds, 38 BMI. Temperature 98.7, 74, 121/64. HEAD, EARS, EYES, NOSE, AND THROAT: Unremarkable. LUNGS: Clear to auscultation. CARDIAC: Regular rhythm without murmur or gallop. ABDOMEN: Soft and nontender. Palpable femoral and pedal pulses. Right foot swelling, ulceration, right heal. Probing with Q tip communicates with the calcaneus. Healed wound mid arch from prior abscess. LABORATORY DATA: White count 8, hemoglobin 10.7. Basic metabolic profile none except consistent with end-stage renal disease. X-rays, right foot reveal above changes. ASSESSMENT AND PLAN: Infection, right foot osteomyelitis, refractory to medical management. He has been on intravenous antibiotics during dialysis, sliding scale, vancomycin for the past several months. He has been on antibiotics for most of this year for foot infections. He is ready for amputation below the knee. We will proceed this morning. Job ID: [id number]
[2018-04-01] MEDS ORDERED: Promethazine HCl 25 MG/ML VIAL SLOW IVP PRN (14:41)
[2018-04-01] MEDS ORDERED: Promethazine HCl 25 MG/ML VIAL IM PRN (14:41)
[2018-04-01] MEDS ORDERED: Ondansetron HCl/PF 4 MG/2 ML Vial IVP PRN (14:41)
[2018-04-01] MEDS ORDERED: HYDROmorphone 2 MG/ML VIAL SLOW IVP PRN (14:41)
[2018-04-01] MEDS ORDERED: traMADol HCl 50 MG TAB PO PRN (14:53)
[2018-04-01] MEDS ORDERED: Acetaminophen 500 MG TAB PO SCH (15:00)
[2018-04-01] MEDS: traMADol HCl 50 MG TAB PO PRN (15:34)
[2018-04-01] MEDS: Morphine 2 MG/ML SYRINGE SLOW IVP PRN ×3 (18:03→22:20)
[2018-04-01] MEDS: Famotidine/PF 20 mg/2ml Vial SLOW IVP SCH (19:27)
[2018-04-01] MEDS: Atorvastatin Calcium 10 MG TAB PO SCH (20:21)
[2018-04-01] MEDS: Famotidine 20 MG TAB PO SCH (20:21)
--- NOTE | 2018-04-01 21:56 | OP ---
DATE OF PROCEDURE: 04/01/2018 PREOPERATIVE DIAGNOSES: Diabetic infection, right foot with osteomyelitis, calcaneus, refractory to antibiotic treatment; end-stage renal disease, on dialysis. POSTOPERATIVE DIAGNOSES: Diabetic infection, right foot with osteomyelitis, calcaneus, refractory to antibiotic treatment; end-stage renal disease, on dialysis. PROCEDURE PERFORMED: Right [id number] amputation. ANESTHESIA: General. ESTIMATED BLOOD LOSS: 200 mL. BLOOD TRANSFUSION: None. DESCRIPTION OF PROCEDURE: The patient was taken to the operating room, where under general anesthesia, the right lower extremity was prepared with ChloraPrep and draped in routine fashion. Incision was made for BKA for a long posterior flap, carried down to skin, subcutaneous tissue, fascia divided the tibia with a bone cutter, placing the anterior edge cephalad, smoothened the edges with a rasp. Fibula transected an inch above the cut edge of the tibia. Vascular bundles were divided between 2-0 silk ties. Muscle layers were divided with cautery. Fascia was approximated with interrupted [id number] suture of 2-0 Vicryl. Skin and subcutaneous tissues were irrigated, and skin was approximated with willi. Sterile dressing was applied. Job ID: [id number]
[2018-04-02] MEDS: Morphine 2 MG/ML SYRINGE SLOW IVP PRN ×5 (00:30→12:52)
[2018-04-02] MEDS: traMADol HCl 50 MG TAB PO PRN (05:28)
[2018-04-02] MEDS: Acetaminophen 325 MG TAB PO PRN (05:29)
[2018-04-02] MEDS: Lisinopril 20 MG TAB PO SCH (08:30)
[2018-04-02] MEDS: Sevelamer Carbonate 800 MG TAB PO SCH ×2 (08:35→14:34)
[2018-04-02] MEDS: Calcium Carbonate 500 MG ChewTAB PO SCH ×2 (08:36→14:33)
[2018-04-02] MEDS: Calcium Acetate 667 MG CAP PO SCH ×3 (08:36→16:33)
[2018-04-02] MEDS: cloNIDine 0.2 MG TAB PO SCH (08:37)
[2018-04-02] MEDS: Amlodipine 10 MG TAB PO SCH (08:37)
[2018-04-02] MEDS: FLUoxetine HCl 20 MG CAP PO SCH (08:37)
[2018-04-02] MEDS: Aspirin 81 mg Enteric Coated Tablet PO SCH (08:37)
[2018-04-02] MEDS: Heparin 5,000 UNITS/ML VIAL SC SCH (08:38)
[2018-04-02 08:53] LABS: #Eosinphils 0.1 thou/uL (0.0-0.7); #Lymphocytes 1.7 thou/uL (1.20-3.40); #Monocytes 0.9 thou/uL (0.11-0.59); #Neutrophils 7.4 thou/uL (1.40-6.50); %Monocytes 9.2 % (0.0-10.0); %Neutrophils 72.8 % (42.0-75.0); Hemoglobin 10.5 g/dL (14.0-18.0); Mean Corpuscular HGB CONC 30.5 g/dL (32.0-36.0); Mean Corpuscular Volume 88.4 fL (78.0-98.0); Mean Platelet Volume 8.5 fL (7.4-10.4); Platelet Count 231 thou/uL (130-400); RBC Distribution Width 18.2 % (11.5-14.5); White Blood Cell (WBC) Count 10.1 thou/uL (4.8-10.8)
[2018-04-02] MEDS ORDERED: Polyethylene Glycol 3350 17 GM Packet PO SCH (09:00)
--- NOTE | 2018-04-02 09:22 | PRG ---
DATE OF SERVICE: 04/02/2018 SUBJECTIVE: Rene Hernandez is doing well today. His pain is under good control. He has been educated this morning to remind him to keep his right knee extended by placing a pillow or blanket beneath his BKA stump below the knee to facilitate extension and prevent contracture. OBJECTIVE: 98.7 degrees, 66, 158/72. CBC is pending this morning. Dressings are dry. Lungs are clear to auscultation. Regular rate and rhythm without murmur or gallop. Abdomen is soft, nontender. ASSESSMENT AND PLAN: Doing well after right below-knee amputation. The patient's antibiotics can be discontinued. He can be transferred to rehab today or tomorrow. Tomorrow, we can remove his dressings from his below-knee amputation stump, begin washing daily the wound with soap and water, and apply antibiotic ointment. Telfa and a stump torch straightener to be obtained from [facility]. I will need to see him in 2-3 weeks to remove his willi. The patient can be transferred to rehab today if accepted. Job ID: [id number]
[2018-04-02 09:33] LABS: Anion Gap 17 mmol/L (10-20); BUN (Urea Nitrogen) 49 mg/dL (8.4-25.7); Calc. Creatinine Clearance 20 mL/min (70-130); Calcium 8.7 mg/dL (7.8-10.44); Carbon Dioxide 22 mmol/L (22-29); Chloride 96 mmol/L (98-107); Estimated GFR-MDRD 9; Glucose 185 mg/dL (70-105); Potassium 5.1 mmol/L (3.5-5.1); Sodium 130 mmol/L (136-145)
[2018-04-02] MEDS ORDERED: HYDROcodone/Acetaminophen 5/325 mg Tablet PO PRN (13:56)
[2018-04-02] MEDS ORDERED: PROPOFOL 200 MG/20 ML VIAL ONE (14:04)
[2018-04-02] MEDS ORDERED: Lidocaine 1% PF 5 ML VIAL ONE (14:04)
[2018-04-02] MEDS: HYDROcodone/Acetaminophen 5/325 mg Tablet PO PRN ×2 (14:34→18:29)
--- NOTE | 2018-04-02 16:05 | PRG ---
DATE OF SERVICE: 04/02/2018 RENAL MEDICINE SUBJECTIVE: Mr. Hernandez is a 57-year-old male with ESRD and followed up by the [facility] for his maintenance hemodialysis. He underwent a right BKA due to diabetic right foot infection with osteomyelitis, which is refractory to antibiotic treatment. He is doing fairly well since the surgery. The patient voices no new complaints. He denies any chest pain or shortness of breath. OBJECTIVE: VITAL SIGNS: Blood pressure is 144/66, heart rate 69, respiratory rate 20, temperature 98.1, and pulse ox 93%. GENERAL: Awake, alert, comfortable, not in distress. SKIN: Adequate turgor. HEENT: He has pinkish conjunctivae, anicteric sclerae. No neck mass. No carotid bruits. No JVD. CHEST: No deformities. LUNGS: Clear breath sounds. HEART: Normal sinus rhythm. No murmurs, gallops, or rubs. ABDOMEN: Globular, soft, and nontender. No masses. EXTREMITIES: No edema. No deformities. Status post bilateral leg amputations. MEDICATIONS: Medications of April 02, 2018, reviewed. LABORATORY DATA: Laboratories of April 02, 2018; sodium 130, potassium 5.1, chloride 96, carbon dioxide 22, BUN 49, creatinine 6.55, glucose 185, calcium 8.7. ASSESSMENT AND PLAN: 1. End-stage renal disease, stable. No indication for any dialytic intervention. Continuing Sunday, Sunday, Sunday dialysis regimen. 2. Status post right BKA - doing well. Awaiting possible rehab for this patient. 3. Anemia. The patient currently on weekly Epogen 7500 units subcu every week. Overall, agree with current management. Recheck baseline CBC in a.m. Job ID: [id number]
[2018-04-02 16:09] VITALS: BP 155/75; TEMP 97.8
[2018-04-02] MEDS: HumaLOG 300 UNITS/3 ML VIAL SC PRN (16:37)
--- NOTE | 2018-04-06 16:08 | PRG ---
DATE OF SERVICE: 04/01/2018 SUBJECTIVE: The patient is seen postoperatively. He is still a bit somnolent from the anesthesia, but awake. He denies any specific problems. He is not having pain at present. OBJECTIVE: VITAL SIGNS: Temperature is 99.1, pulse 76, respirations 19, O2 saturation 95% on room air, BP 170/70. GENERAL APPEARANCE: Age-appropriate male. Obese. No distress. Again, slightly groggy from anesthesia, but interactive. HEART: Regular rate and rhythm without murmurs. LUNGS: Clear with no wheezes or rales. ABDOMEN: Soft, nontender, nondistended. Positive bowel sounds. No masses. No organomegaly. EXTREMITIES: Right lower extremity has a postop dressing. LABORATORY DATA: White count is 8.0, hemoglobin 10.7, platelets 183. Sodium 134, potassium 4.5, chloride 99, CO2 is 26, BUN 31, creatinine 4.83, glucose 197, calcium is 8.7. IMPRESSION: 1. Osteomyelitis, right lower extremity, status post right below-knee amputation. 2. End-stage renal disease, on dialysis, followed by Dr. Dalal. Continue with his usual hemodialysis regimen. 3. Diabetes mellitus type 2, well controlled. 4. History of diabetic neuropathy, stable. 5. Hypertension. Continue amlodipine and Zestril. 6. Methicillin-resistant Staphylococcus aureus infection. We will continue antibiotics for now; however, status post amputation, will not likely need to continue those. Job ID: [id number]
== END 2018-04-02 18:36 | DRG 617 ==
LOC: ERS 18:39 → T4-B 21:31
PROVIDERS: ADMIT Internal Medicine; ATTEND Internal Medicine
PROC: 5A1D70Z Performance of Urinary Filtration, Intermittent, Less than 6 Hours Per Day (ICD-10-PCS; 2018-03-29)
PROC: 0Y6J0Z3 Detachment at Left Lower Leg, Low, Open Approach (ICD-10-PCS; principal; 2018-04-01)
DX: E11.69 Type 2 diabetes mellitus with other specified complication (principal); M86.171 Other acute osteomyelitis, right ankle and foot; I69.354 Hemiplegia and hemiparesis following cerebral infarction affecting left non-dominant side; I12.0 Hypertensive chronic kidney disease with stage 5 chronic kidney disease or end stage renal disease; Z88.0 Allergy status to penicillin; Z88.8 Allergy status to other drugs, medicaments and biological substances; N18.6 End stage renal disease; Z99.2 Dependence on renal dialysis; Z87.891 Personal history of nicotine dependence; Z89.439 Acquired absence of unspecified foot; Z79.899 Other long term (current) drug therapy; Z79.4 Long term (current) use of insulin; E78.5 Hyperlipidemia, unspecified; F32.9 Major depressive disorder, single episode, unspecified; F41.9 Anxiety disorder, unspecified; E11.65 Type 2 diabetes mellitus with hyperglycemia; D64.9 Anemia, unspecified; I73.9 Peripheral vascular disease, unspecified; E11.621 Type 2 diabetes mellitus with foot ulcer; E11.610 Type 2 diabetes mellitus with diabetic neuropathic arthropathy; B96.20 Unspecified Escherichia coli [E. coli] as the cause of diseases classified elsewhere; B95.61 Methicillin susceptible Staphylococcus aureus infection as the cause of diseases classified elsewhere
CPT/HCPCS: 36415; 36416; 51701; 70450; 70496; 70498; 70551; 71045; 80048; 80053; 80061; 80069; 80202; 81003; 81015; 82553; 83605; 83735; 84484; 85025; 85610; 85652; 85730; 86140; 86850; 86900; 86901; 87040; 87070; 87077; 87086; 87186; 87205; 87804; 88307; 88311; 90935; 93005; 96361; 96365; 96372; 96375; G0257; G0378; G8978-GP-CK; G8978-GP-CM; G8979-GP-CK; G8980-GP-CK; G8987-GO-CI; G8987-GO-CL; G8988-GO-CI; G8988-GO-CJ; G8989-GO-CI; J1170; J1200; J1644; J1650; J2001; J2270; J2405; J2704; J2765; J3010; J3370; J3490; J7050; Q0162; Q4081; S0028

== ENCOUNTER 2018-04-04 22:17 | Emergency (ER) | payer MEDICARE ==
[2018-04-04 22:57] LABS: #Eosinphils 0.2 thou/uL (0.0-0.7); #Lymphocytes 1.2 thou/uL (1.20-3.40); #Monocytes 0.6 thou/uL (0.11-0.59); #Neutrophils 6.7 thou/uL (1.40-6.50); %Basophils 0.2 % (0.0-1.0); %Eosinophils 2.3 % (0.0-10.0); %Lymphocytes 14.3 % (21.0-51.0); %Monocytes 6.9 % (0.0-10.0); %Neutrophils 76.4 % (42.0-75.0); Hemoglobin 9.5 g/dL (14.0-18.0); Mean Corpuscular HGB CONC 30.9 g/dL (32.0-36.0); Mean Corpuscular Hemoglobin 26.7 pg (27.0-31.0); Mean Corpuscular Volume 86.3 fL (78.0-98.0); Mean Platelet Volume 7.6 fL (7.4-10.4); Platelet Count 297 thou/uL (130-400); Red Blood Cell (RBC) Count 3.55 mill/uL (4.70-6.10); White Blood Cell (WBC) Count 8.7 thou/uL (4.8-10.8)
[2018-04-04 23:18] LABS: ALT (SGPT) 16 U/L (8-55); AST (SGOT) 26 U/L (5-34); Alkaline Phosphatase 453 U/L (40-150); Anion Gap 12 mmol/L (10-20); BUN (Urea Nitrogen) 42 mg/dL (8.4-25.7); Bilirubin, Total 0.4 mg/dL (0.2-1.2); Calc. Creatinine Clearance 0 mL/min (70-130); Calcium 8.9 mg/dL (7.8-10.44); Carbon Dioxide 30 mmol/L (22-29); Chloride 94 mmol/L (98-107); Estimated GFR-MDRD 10; Globulin 4.1 g/dL (2.4-3.5); Glucose 270 mg/dL (70-105); Potassium 5.1 mmol/L (3.5-5.1); Protein, Total 7.1 g/dL (6.0-8.3); Sodium 131 mmol/L (136-145)
--- NOTE | 2018-04-04 23:29 | CT ---
CT OF BRAIN PERFORMED WITHOUT CONTRAST ENHANCEMENT: 04/04/18 COMPARISON: 03/28/18 study. HISTORY: Fall. The ventricular and cisternal system is stable as compared to the prior exam. Chronic white mat ter changes are noted. Encephalomalacia change of the left cerebellum is again seen. No signs for int racerebral hemorrhage or extra-axial fluid collections. Mastoid air cells and visualized sinuses are clear. IMPRESSION: No acute intracranial abnormalities. Stable chronic change. POS: [facility]
--- NOTE | 2018-04-04 23:30 | RAD ---
PORTABLE CHEST: 04/04/18 HISTORY: Altered mental status. COMPARISON: 03/29/18 exam. Heart size appears slightly enlarged. Mediastinal structures are unremarkable. The lungs are clear of infiltrates. IMPRESSION: Minimal cardiomegaly. POS: [facility]
[2018-04-04 23:58] LABS: Bilirubin Negative (Negative); Blood, Urine Trace (Negative); Clarity CLEAR (Clear); Glucose, Urine (Dipstick) 250 mg/dL (Negative); Leukocyte Trace (Negative); Nitrite Negative (Negative); Protein, Urine (Dipstick) > or equal to 300 mg/dL (Neg-Trace); Specific Gravity, Urine 1.021 (1.002-1.036); Urobilinogen 0.2 mg/dL (0.2-1.0)
[2018-04-05 00:01] LABS: Bacteria/HPF None Seen HPF (None Seen); Hyaline Casts/LPF 0-3 HYALINE CAST LPF (0-3 Hyaline); Squamous Epithelial 0-3 HPF (0-3)
[2018-04-05 00:14] LABS: Renal Epithelial None Seen HPF (0-3); Transitional Epithelial 0-3 HPF (0-3)
--- NOTE | 2018-04-06 12:24 | EKG ---
Test Reason : AMS Blood Pressure : / mmHG Vent. Rate : 066 BPM Atrial Rate : 066 BPM P-R Int : 292 ms QRS Dur : 116 ms QT Int : 436 ms P-R-T Axes : 054 -09 030 degrees QTc Int : 457 ms Sinus rhythm with 1st degree A-V block Otherwise normal EKG Confirmed by STEPHANIE OLMEDO DO ([id number]), industrial editor JUSTINO DOMÍNGUEZ ([id number] on 04/06/2018 12:24:19 PM Referred By: Confirmed By:STEPHANIE OLMEDO DO
== END 2018-04-05 01:23 ==
LOC: ERS 22:17
DX: R44.3 Hallucinations, unspecified (principal); N39.0 Urinary tract infection, site not specified; E11.9 Type 2 diabetes mellitus without complications; I10 Essential (primary) hypertension; Z87.891 Personal history of nicotine dependence; W18.30XA Fall on same level, unspecified, initial encounter
CPT/HCPCS: 36415; 51701; 70450; 71045; 81003; 81015; 83605; 83880; 84484; 87086; 93005

== ENCOUNTER 2018-07-09 11:39 | Observation (INO) | payer MEDICARE ==
[2018-07-09 12:28] LABS: #Basophils 0.1 thou/uL (0.0-0.2); #Lymphocytes 2.1 thou/uL (1.20-3.40); #Monocytes 0.4 thou/uL (0.11-0.59); #Neutrophils 4.2 thou/uL (1.40-6.50); %Basophils 0.7 % (0.0-1.0); %Eosinophils 13.3 % (0.0-10.0); %Lymphocytes 26.8 % (21.0-51.0); %Monocytes 5.2 % (0.0-10.0); Hemoglobin 13.5 g/dL (14.0-18.0); Mean Corpuscular HGB CONC 31.6 g/dL (32.0-36.0); Mean Corpuscular Hemoglobin 30.7 pg (27.0-31.0); Mean Corpuscular Volume 97.2 fL (78.0-98.0); Mean Platelet Volume 8.6 fL (7.4-10.4); Platelet Count 155 thou/uL (130-400); RBC Distribution Width 17.9 % (11.5-14.5); White Blood Cell (WBC) Count 7.9 thou/uL (4.8-10.8)
[2018-07-09 12:34] LABS: Prothrombin Time 13.1 SEC (12.0-14.7)
[2018-07-09 12:35] LABS: PTT 32.6 SEC (22.9-36.1)
[2018-07-09 12:44] LABS: ALT (SGPT) 12 U/L (8-55); AST (SGOT) 16 U/L (5-34); Albumin 3.8 g/dL (3.5-5.0); Alkaline Phosphatase 131 U/L (40-150); Anion Gap 21 mmol/L (10-20); BUN (Urea Nitrogen) 75 mg/dL (8.4-25.7); Bilirubin, Total 0.4 mg/dL (0.2-1.2); CK (CPK) 87 U/L (30-200); Calc. Creatinine Clearance 0 mL/min (70-130); Calcium 8.1 mg/dL (7.8-10.44); Carbon Dioxide 21 mmol/L (22-29); Chloride 98 mmol/L (98-107); Estimated GFR-MDRD 5; Globulin 3.2 g/dL (2.4-3.5); Glucose 113 mg/dL (70-105); Potassium 6.5 mmol/L (3.5-5.1); Sodium 133 mmol/L (136-145)
--- NOTE | 2018-07-09 14:03 | RAD ---
CHEST 1 VIEW: Date: 07/09/18 HISTORY: Altered mental status. Patient missed dialysis today. COMPARISON: 04/04/18. FINDINGS: Heart size is within normal limits. The lungs are clear. No pneumonia, edema, pleural effusion, or ot her acute process. IMPRESSION: No acute intrathoracic disease. Stable from prior study. POS: [facility]
--- NOTE | 2018-07-09 14:06 | CT ---
CT OF BRAIN PERFORMED WITHOUT CONTRAST ENHANCEMENT: Date; 07/09/18 HISTORY: 04/04/18 study. FINDINGS: The ventricular and cisternal system show a stable appearance. Asymmetric size of the right lateral v entricle compared to the left. Decreased attenuation in the periventricular white matter and a puncta te calcification in the frontal white matter is seen. In addition, the encephalomalacia changes to th e left side of the cerebellum are present. All these changes appear stable as compared to the earlier study. IMPRESSION: Stable changes. No acute intracranial abnormalities. Findings telephoned to Dr. Vega at 1222 hours. CODE CR. POS: [facility]
[2018-07-09 21:54] VITALS: BMI 36.2
--- NOTE | 2018-07-09 23:40 | CON ---
DATE OF CONSULTATION: HISTORY OF PRESENT ILLNESS: Mr. Hernandez is a 58-year-old male with ESRD - on maintenance hemodialysis and was admitted for mental status change. The patient has intermittent confusion. We are now being consulted for his maintenance hemodialysis. Of interest, his potassium was noted to be 6.5. For that reason, the patient is currently undergoing emergent hemodialysis. He did miss his dialysis session yesterday. REVIEW OF SYSTEMS: No chest pain or shortness of breath. Positive for mental status change. No nausea. No vomiting. No fever or chills. No diarrhea. No constipation. No productive cough. No abdominal pain. No tremors. No hematochezia. No melena. No diarrhea. Appetite and energy level is fair. MEDICATIONS: Currently on: 1. Tramadol 50 mg q.12 p.r.n. 2. Clonidine 0.2 mg b.i.d. 3. Renvela 800 mg p.o. t.i.d. 4. MiraLAX 17 g daily. 5. [place] fish oil one capsule daily. 6. Lisinopril 20 mg once a day. 7. Insulin glargine/Basaglar 45 units subcu nightly. 8. Hydrocodone 7.5/325 one tablet b.i.d. as needed. 9. Prozac 20 mg once a day. 10. Cholecalciferol 2000 units p.o. daily. 11. Calcium acetate 667 mg one tablet q.i.d. with meals. 12. Atorvastatin 10 mg tablet nightly. 13. Aspirin 81 mg daily. 14. Amlodipine 10 mg once a day. PAST MEDICAL HISTORY: 1. ESRD from diabetic nephropathy. 2. He has type 2 diabetes mellitus, status post CVA, seizure disorder, status post multiple foot infection, hypertension, status post CHF, peripheral vascular disease. PAST SURGICAL HISTORY: Status post right foot/toe amputations - right, status post right BKA, status post AV fistula placement, status post cuffed hemodialysis catheter placement, status post laparoscopic cholecystectomy, status post debridement of right foot ulcer, status post left toe amputation. SOCIAL HISTORY: The patient lives in [place]. 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 , with several children. Medically disabled. No IV drug abuse. Status post multiple blood transfusions. Currently, no smoking or alcohol intake. ALLERGIES: NONE. TRAUMA: None. IMMUNIZATION: Up-to-date. HOSPITALIZATIONS: Please see past medical history. FAMILY HISTORY: No family history of ESRD. PHYSICAL EXAMINATION: VITAL SIGNS: Blood pressure is 122/70 and heart rate 69. GENERAL: The patient is awake, alert, supine, comfortable, not in distress. SKIN: Adequate turgor. HEENT: He has pinkish conjunctivae. Anicteric sclerae. No neck mass. No carotid bruits. No JVD. CHEST: No deformities. LUNGS: Clear breath sounds. No wheezing. No crackles. HEART: Normal sinus rhythm. No murmur. No gallops or rubs. ABDOMEN: Globular. Soft. Nontender. No masses. EXTREMITIES: No edema, status post right BKA. NEUROLOGICAL: Awake and oriented to 3 spheres. Moving all extremities. No tremors. No asterixis. LABORATORY DATA: On July 09, 2018; white count 7.9 and hemoglobin 13.5. Sodium 133, potassium 6.5, chloride 98, carbon dioxide 21, BUN 75, creatinine 9.97, and glucose 113. LFTs normal. IMAGING DATA: CT scan of the brain, no acute intracranial abnormality. Chest x-ray, no CHF. No infiltrates. ASSESSMENT AND PLAN: 1. Mental status change - this could be metabolic in etiology. Please note, he may have been hypoglycemic at that time. Continue supportive care. Continue to observe. I would suggest we rule out any active seizure activity with this patient. 2. End-stage renal disease, stable. The patient missed hemodialysis yesterday. We are doing an emergent dialysis due to the potassium of 6.5. Fluid removal only as tolerated. We will resume back his regular Sunday, Sunday, and Sunday hemodialysis, starting tomorrow. 3. Agree with current management. Job ID: [id number]
[2018-07-10] MEDS ORDERED: HumaLOG 300 UNITS/3 ML VIAL SC PRN (08:56)
[2018-07-10] MEDS ORDERED: Dextrose 5% in Water 1,000 ML IV PRN (08:56)
[2018-07-10] MEDS ORDERED: Ondansetron ODT 4 MG TAB PO PRN (08:56)
[2018-07-10] MEDS ORDERED: Ondansetron PF 4 MG/2 ML Vial IVP PRN (08:56)
[2018-07-10] MEDS ORDERED: Dextrose 50% Abboject 50 ML SYRINGE SLOW IVP PRN (08:56)
[2018-07-10] MEDS ORDERED: Acetaminophen 325 MG TAB PO PRN (08:56)
[2018-07-10] MEDS ORDERED: Heparin 5,000 UNITS/ML VIAL SC SCH (09:00)
--- NOTE | 2018-07-10 09:16 | PRG ---
DATE OF SERVICE: 07/10/2018 HISTORY OF PRESENT ILLNESS: Mr. Hernandez is a 58-year-old male with known history of ESRD and being followed by the [facility] for his maintenance hemodialysis. He was initially admitted for mental status change. He was ruled out for CVA. He is undergoing dialysis. I am at the bedside supervising his dialysis. No other new complaints. PHYSICAL EXAMINATION: VITAL SIGNS: Blood pressure is 146/73, heart rate 74, respiratory rate 18, temperature 98.5, and pulse ox 97%. GENERAL: Noted to be awake, alert, comfortable, not in distress. SKIN: Adequate turgor. HEENT: He has pinkish conjunctivae. Anicteric sclerae. NECK: No neck mass. No carotid bruits. No JVD. CHEST: No deformities. LUNGS: Clear breath sounds. HEART: Normal sinus rhythm. No murmur. No gallops. No rubs. ABDOMEN: Globular, soft, and nontender. No masses. EXTREMITIES: No edema. No deformities. MEDICATIONS: Home medications were reviewed. LABORATORY DATA: Laboratories of July 09, 2018, sodium 133, potassium 6.5, chloride 98, carbon dioxide 21, BUN 75, creatinine 9.97, AST 16, ALT 12. Hemoglobin 13.5. ASSESSMENT AND PLAN: 1. End-stage renal disease, stable. Continue current hemodialysis regimen. Fluid removal only as tolerated. Minimal heparin use. 2. Mental status change-? transient ischemic attack. CAT scan of the brain was essentially negative. Overall, I agree with current management. Job ID: [id number]
[2018-07-10 09:57] LABS: Anion Gap 16 mmol/L (10-20); BUN (Urea Nitrogen) 45 mg/dL (8.4-25.7); Calc. Creatinine Clearance 17 mL/min (70-130); Calcium 8.4 mg/dL (7.8-10.44); Carbon Dioxide 27 mmol/L (22-29); Chloride 98 mmol/L (98-107); Estimated GFR-MDRD 8; Glucose 92 mg/dL (70-105); Potassium 4.9 mmol/L (3.5-5.1); Sodium 136 mmol/L (136-145)
[2018-07-10 15:35] VITALS: BP 102/61; TEMP 98
--- NOTE | 2018-07-13 12:02 | EKG ---
Test Reason : ER Blood Pressure : / mmHG Vent. Rate : 074 BPM Atrial Rate : 074 BPM P-R Int : 276 ms QRS Dur : 110 ms QT Int : 414 ms P-R-T Axes : 036 -13 026 degrees QTc Int : 459 ms Sinus rhythm with 1st degree A-V block Septal infarct , age undetermined Abnormal ECG Confirmed by DELIA DORSEY DO ([id number]), medical editor JUSTINO DOMÍNGUEZ ([id number]) on 07/13/2018 12:02:14 PM Referred By: Confirmed By:DELIA DORSEY DO
== END 2018-07-10 18:18 | disposition home or self-care (01) ==
LOC: ERS 11:39 → 2SE 18:32
PROVIDERS: ADMIT Internal Medicine; ATTEND Internal Medicine
DX: R41.82 Altered mental status, unspecified (principal); I12.0 Hypertensive chronic kidney disease with stage 5 chronic kidney disease or end stage renal disease; E11.22 Type 2 diabetes mellitus with diabetic chronic kidney disease; N18.6 End stage renal disease; Z99.2 Dependence on renal dialysis; I73.9 Peripheral vascular disease, unspecified; G40.909 Epilepsy, unspecified, not intractable, without status epilepticus; Z88.0 Allergy status to penicillin; Z88.1 Allergy status to other antibiotic agents; Z86.73 Personal history of transient ischemic attack (TIA), and cerebral infarction without residual deficits; Z89.611 Acquired absence of right leg above knee; Z90.49 Acquired absence of other specified parts of digestive tract; Z89.422 Acquired absence of other left toe(s); Z79.4 Long term (current) use of insulin; Z79.82 Long term (current) use of aspirin; Z79.899 Other long term (current) drug therapy; Z98.890 Other specified postprocedural states
CPT/HCPCS: 70450; 71045; 80048; 80053; 82550; 82947; 82962 ×2; 84484; 85025; 85610; 85730; 93005; 99285; G0378 ×2; 36415; 36416; J1644

== ENCOUNTER 2018-11-02 09:06 | Emergency (ER) | payer MEDICARE ==
[2018-11-02 09:49] LABS: #Eosinphils 0.1 thou/uL (0.0-0.7); #Monocytes 0.5 thou/uL (0.11-0.59); #Neutrophils 4.1 thou/uL (1.40-6.50); %Eosinophils 2.1 % (0.0-10.0); %Lymphocytes 29.2 % (21.0-51.0); %Monocytes 7.7 % (0.0-10.0); Hemoglobin 11.7 g/dL (14.0-18.0); Mean Corpuscular HGB CONC 33.7 g/dL (32.0-36.0); Mean Corpuscular Hemoglobin 33.2 pg (27.0-31.0); Mean Corpuscular Volume 98.7 fL (78.0-98.0); Mean Platelet Volume 7.8 fL (7.4-10.4); Platelet Count 181 thou/uL (130-400); RBC Distribution Width 14.8 % (11.5-14.5); Red Blood Cell (RBC) Count 3.51 mill/uL (4.70-6.10); White Blood Cell (WBC) Count 6.7 thou/uL (4.8-10.8)
--- NOTE | 2018-11-02 09:49 | RAD ---
XR Knee Rt 4 View STANDARD History: Open wound Comparison: None. Findings: Prior right below the knee amputation. Heterotopic ossification is is expected post amputat ion as well as some periostitis. There is, however, abnormal appearance of the tibial medullary bone of the lateral radiograph which is loss of normal linear congruence with erosions. Overlying sof t tissue swelling. Impression: Possible osteomyelitis of the tibial stump medullary cavity. MRI recommended if clinicall y warranted.
[2018-11-02 10:00] LABS: ALT (SGPT) 9 U/L (8-55); AST (SGOT) 9 U/L (5-34); Alkaline Phosphatase 154 U/L (40-150); Anion Gap 16 mmol/L (10-20); BUN (Urea Nitrogen) 32 mg/dL (8.4-25.7); Bilirubin, Total 0.4 mg/dL (0.2-1.2); CRP (Inflammatory) 1.45 mg/dL (= or < 0.5); Calc. Creatinine Clearance 0 mL/min (70-130); Calcium 8.4 mg/dL (7.8-10.44); Carbon Dioxide 26 mmol/L (22-29); Chloride 99 mmol/L (98-107); Estimated GFR-MDRD 9; Globulin 3.1 g/dL (2.4-3.5); Glucose 360 mg/dL (70-105); Potassium 4.5 mmol/L (3.5-5.1); Protein, Total 7.1 g/dL (6.0-8.3); Sodium 136 mmol/L (136-145)
== END 2018-11-02 10:52 | disposition home or self-care (01) ==
LOC: ERS 09:06
DX: L97.919 Non-pressure chronic ulcer of unspecified part of right lower leg with unspecified severity (principal); L03.115 Cellulitis of right lower limb; E11.9 Type 2 diabetes mellitus without complications; I10 Essential (primary) hypertension; Z86.73 Personal history of transient ischemic attack (TIA), and cerebral infarction without residual deficits; Z87.891 Personal history of nicotine dependence; Z79.4 Long term (current) use of insulin; Z79.899 Other long term (current) drug therapy
CPT/HCPCS: 80053; 85025; 85652; 86140

== ENCOUNTER 2018-11-24 19:39 | Emergency (ER) | payer MEDICARE | END 2018-11-24 20:28 | disposition left against medical advice (07) | LOC: ERS 19:39 | DX: Z53.21 Procedure and treatment not carried out due to patient leaving prior to being seen by health care provider (principal) ==

== ENCOUNTER 2019-02-08 11:51 | Inpatient (IN) | payer MEDICARE ==
[2019-02-08] MEDS ORDERED: Rocuronium Bromide 10 MG/ML (10ML VIAL) ONE (12:01)
[2019-02-08] MEDS ORDERED: fentaNYL Citrate/PF 2,000 MCG in Sodium Chloride 0.9% 60 ML IV SCH (12:04)
[2019-02-08 12:33] LABS: #Eosinphils 0.1 thou/uL (0.0-0.7); #Lymphocytes 2.1 thou/uL (1.20-3.40); #Monocytes 0.5 thou/uL (0.11-0.59); #Neutrophils 5.5 thou/uL (1.40-6.50); %Basophils 0.4 % (0.0-1.0); %Eosinophils 1.1 % (0.0-10.0); %Lymphocytes 25.3 % (21.0-51.0); %Monocytes 5.8 % (0.0-10.0); %Neutrophils 67.4 % (42.0-75.0); Hemoglobin 12.6 g/dL (14.0-18.0); Mean Corpuscular HGB CONC 32.2 g/dL (32.0-36.0); Mean Corpuscular Hemoglobin 31.8 pg (27.0-31.0); Mean Platelet Volume 9.1 fL (7.4-10.4); Platelet Count 142 thou/uL (130-400); RBC Distribution Width 13.3 % (11.5-14.5); Red Blood Cell (RBC) Count 3.96 mill/uL (4.70-6.10); White Blood Cell (WBC) Count 8.2 thou/uL (4.8-10.8)
--- NOTE | 2019-02-08 12:45 | RAD ---
PORTABLE CHEST ONE VIEW: 02/08/2019 11:59 a.m. HISTORY: Altered mental status. FINDINGS: There is an endotracheal tube with the tip at the level of the clavicular heads. The nasogastric tube can be traced into the stomach. The heart size is borderline. There is increased density in the righ t lung apex. This was not seen on the exam of 07/09/2018. POS: [facility]
[2019-02-08 12:48] LABS: Actual Bicarbonate (HCO3a) 20.5 mEq/L (22-28); Analyzer IN Cardio ER; Base Excess (BEa) -5.4 mEq/L (-2.0 to +3.0); CO2 Tension 41.2 mmHg (35.0-45.0); Calcium, Ionized 1.08 mmol/L (1.12-1.30); Carboxyhemoglobin (COHb) 0.4 gm% (0.0-3.0); Hemoglobin (Hb) 13.4 g/dL (14.0-18.0); O2 Tension (PaO2) 265.3 mmHg (80.0-100.0); Potassium - ABG Lab 4.89 mmol/L (3.70-5.30); pH, Arterial 7.31 (7.35-7.45)
[2019-02-08 12:49] LABS: Puncture Site RB
[2019-02-08 12:51] LABS: ALT (SGPT) 12 U/L (8-55); AST (SGOT) 10 U/L (5-34); Acetaminophen Less than 6.0 mcg/mL (10.0-30.0); Albumin 4.2 g/dL (3.5-5.0); Alcohol Less than 10 mg/dL (Less than 10); Alkaline Phosphatase 159 U/L (40-110); Anion Gap 23 mmol/L (10-20); BUN (Urea Nitrogen) 35 mg/dL (8.4-25.7); Bilirubin, Total 0.4 mg/dL (0.2-1.2); CK (CPK) 126 U/L (30-200); Calc. Creatinine Clearance 0 mL/min (70-130); Calcium 8.7 mg/dL (7.8-10.44); Carbon Dioxide 20 mmol/L (22-29); Chloride 91 mmol/L (98-107); Estimated GFR-MDRD 9; Globulin 3.1 g/dL (2.4-3.5); Lipase 42 U/L (8-78); Magnesium 2.1 mg/dL (1.6-2.6); Phosphorus 5.7 mg/dL (2.3-4.7); Potassium 4.3 mmol/L (3.5-5.1); Protein, Total 7.3 g/dL (6.0-8.3); Salicylate Less than 8.0 mg/dL (15.0-30.0); Sodium 130 mmol/L (136-145)
[2019-02-08 12:56] LABS: Glucose 768 mg/dL (70-105)
[2019-02-08 12:58] LABS: Bilirubin Negative (Negative); Blood, Urine 1+ (Negative); Clarity Clear (Clear); Glucose, Urine (Dipstick) Greater than 1000 mg/dL (Negative); Leukocyte 250 Leu/uL (Negative); Nitrite Negative (Negative); Protein, Urine (Dipstick) 70 mg/dL (Neg-Trace); RBC/HPF 0-3 HPF (0-3); Squamous Epithelial 0-3 HPF (0-3); Urobilinogen Normal mg/dL (Less than 2); WBC/HPF 21-50 HPF (0-3)
[2019-02-08] MEDS ORDERED: Propofol 1,000 MG/100 ML VIAL IV ONE ×2 (12:59→13:02)
[2019-02-08] MEDS ORDERED: Propofol 500 MG/50 ML VIAL ONE (13:00)
[2019-02-08 13:07] LABS: Amphetamine Not Detected (NotDetected); Barbiturates Screen Not Detected (NotDetected); Benzodiazepine Screen Not Detected (NotDetected); Cocaine Metabolite Screen Not Detected (NotDetected); Medtox Control Line Valid? VALID (VALID); Medtox Reader # READER 4; Methadone Not Detected (NotDetected); Methamphetamine Not Detected (NotDetected); Opiate Screen Not Detected (NotDetected); Oxycodone Screen Not Detected (NotDetected); Phencyclidine (PCP) Not Detected (NotDetected); THC/Cannabinoid Screen Not Detected (NotDetected); Tricyclic Screen Not Detected (NotDetected)
[2019-02-08 13:11] LABS: CKMB 2.6 ng/mL (0-6.6)
[2019-02-08 13:11] LABS: Bacteria/HPF Rare-Few HPF (None Seen)
--- NOTE | 2019-02-08 13:16 | CT ---
CT head noncontrast HISTORY: Seizure. COMPARISON: 07/09/2018. FINDINGS: There is no evidence of acute intracranial hemorrhage or infarct. Old left cerebellar infar ct is stable. Small focus of dystrophic calcification is again shown associated with a small right frontal infarct. Mild diffuse ventricular prominence is stable. Relative preservation of the peripher al sulci. Visualized paranasal sinuses remain well aerated. Catheter partially visualized within the right nasal passage. IMPRESSION: Chronic-type findings are stable. No acute intracranial abnormalities are demonstrated. Mild diffuse ventricular prominence. Clinical correlation regarding other signs and symptoms of jorge l l pressure hydrocephalus is required.
[2019-02-08] MEDS ORDERED: Lorazepam 2 MG/ML VIAL ONE (14:02)
[2019-02-08] MEDS ORDERED: levETIRAcetam In NaCl (Iso-Os) 1,000 MG in Premix Bag 1 BAG IVPB SCH (14:45)
[2019-02-08] MEDS ORDERED: Insulin Regular 300 UNITS/3 ML VIAL ONE (14:57)
[2019-02-08] MEDS ORDERED: CCU Insulin Drip FS ONE (15:28)
[2019-02-08] MEDS ORDERED: Lorazepam 2 MG/ML VIAL SLOW IVP PRN (16:15)
[2019-02-08] MEDS ORDERED: Morphine 2 MG/ML SYRINGE SLOW IVP PRN (16:15)
[2019-02-08] MEDS ORDERED: DISCONTINUE PREVIOUS NARCOTIC PAIN MEDICATIONS AND BENZODIAZEPINES FS SCH (16:15)
[2019-02-08] MEDS ORDERED: Fentanyl BOLUS 250 ML IVPB PRN (16:15)
[2019-02-08] MEDS ORDERED: Propofol BOLUS 1,000 MG/100 ML VIAL IV PRN (16:15)
[2019-02-08] MEDS ORDERED: HUMULIN R 100 UNITS in Sodium Chloride 0.9% 100 ML IVPB SCH (16:30)
--- NOTE | 2019-02-08 16:30 | HP ---
CHIEF COMPLAINT: Altered mental status. HISTORY OF PRESENT ILLNESS: This patient is a 58-year-old male with a history of end-stage renal disease, on dialysis secondary to diabetic nephropathy. This patient also has a history of some sort of minor seizure disorder. According to the patient's , she says he frequently will have what she describes as appearing like absent seizures, which are brief. He has never had any type of tonic- clonic activity prior. He is on no medication for it. Today, the patient was found by the family to be altered. He was apparently trying to speak but was unintelligible. They went and grabbed his other son. He tried to help pick him up and at that time, the patient was still trying to speak intelligibly but was shaking in his arms and they thought he might have been having a seizure. Ambulance was called. The patient apparently received 2 mg of Ativan in the emergency department and when he arrived to the emergency department, he had a GCS of 3. He subsequently received more Ativan, got intubated. He is now trying to come around a bit and is coughing and fighting the ventilator a bit. He is on a propofol drip. The patient's family does not have any further details. They say that he has actually been quite normal and quite well of late. He does continue to void about 3 times per day. REVIEW OF SYSTEMS: Unobtainable given the patient's sedated and intubated status. PAST MEDICAL HISTORY: Notable for diabetes mellitus; peripheral vascular disease; status post right BKA; has history of a CVA with some left-sided residual weakness; chronic kidney disease, on hemodialysis Sunday, Sunday, and Sunday. PAST SURGICAL HISTORY: Amputation, BKA on the right, cholecystectomy, tonsillectomy, and history of a hemorrhagic stroke with craniotomy. FAMILY HISTORY: Unobtainable at the moment. SOCIAL HISTORY: Per records, he has no history of alcohol or drugs. He is a former tobacco user. He did have a history of smoking cigarettes, quit more than 10 years ago. Lives at home with his family. CURRENT MEDICATIONS: Per the ER record with; 1. Sevelamer 800 mg, regimen not known. 2. Velphoro 500 mg. 3. Aspirin 81 mg daily. 4. Fluoxetine 20 mg daily. 5. Vitamin D 2000 units daily. 6. Clonidine 0.1, regimen not known. The patient was admitted here in August. At that time, he was also on; 1. Amlodipine. 2. [place]-3 fatty acids. 3. Atorvastatin. 4. Lantus 45 units at bedtime. 5. Clonidine 0.1 mg b.i.d. 6. Aspirin 81 mg daily. 7. Procrit 7500 units weekly. 8. Lisinopril 5 mg daily. ALLERGIES: PENICILLIN, ZOSYN. PHYSICAL EXAMINATION: VITAL SIGNS: Most recent set of vital signs; blood pressure 155/101, pulse 82, respirations 16, and O2 saturations 100% on ventilator. GENERAL APPEARANCE: The patient is age appropriate male. He is ventilated. He is sedated, but not completely unconscious. He is coughing against the vent. He is not otherwise responsive. HEENT: Pupils are constricted and symmetric. NECK: Supple and symmetric. HEART: Regular rate and rhythm without murmurs, gallops, or rubs. LUNGS: Clear to auscultation bilaterally with mechanical ventilation, mild upper airway rhonchi. ABDOMEN: Soft, nontender, and nondistended. Positive bowel sounds. No masses. No organomegaly. EXTREMITIES: Right BKA, otherwise no cyanosis, clubbing, or edema. Left upper extremity dialysis shunt with a normal thrill. PSYCH: The patient is sedated. NEURO: The patient is moving extremities spontaneously occasionally, but again is otherwise sedated. LABORATORY DATA: White count 8.2, hemoglobin 12.6, and platelets 142. ABG; pH is 7.3, pCO2 is 41, and pO2 is 265. Sodium 130, potassium is 4.3, chloride is 91, CO2 is 20, BUN is 35, creatinine 6.68, glucose 768, calcium 8.7, phosphorus 5.7, magnesium 2.1, and alkaline phosphatase 159. CK is 2.6. Troponin is 0.046. Urinalysis greater than 1000 glucose, trace protein, 1+ blood, 250 leukocyte esterase, 0 to 3 red cells, and 21 to 50 white cells. UDS negative. Beta-hydroxybutyrate 0.33. IMAGING DATA: Chest x-ray, ET tube is in good position. Increased density at the right lung apex. Brain CT shows chronic type findings that are stable. No acute intracranial abnormalities. Mild diffuse ventricular prominence. IMPRESSION AND PLAN: 1. Acute encephalopathy, appears to be metabolic, unclear if this is related to a potential seizure versus mild diabetic ketoacidosis with significant hyperglycemia. The patient has had intubation primarily to protect his airway with the altered mental status and sedation. His ammonia level is normal at 25. 2. Mild diabetic ketoacidosis with an anion gap of 23 and glucose of 768, and slight elevation of the beta-hydroxybutyrate. We will start him on a CCU insulin drip protocol. We will avoid aggressive hydration given his dialysis status. We will continue to monitor blood sugars q.1 hour and check labs frequently. 3. End-stage renal disease. Consult Dr. Dalal for ongoing dialysis. 4. History of hypertension. Continue to monitor. We will forego any antihypertensives until he proved some need for those given that he cannot take p.o.'s at the moment. 5. Possible urinary tract infection. The patient has received Levaquin in the emergency department. We will continue with that and follow up cultures. 6. Possible infiltrate on chest x-ray. Levaquin should be reasonable coverage. We will continue to monitor clinically. Possibly, he could have had some aspiration given his altered mental status, although it is upper lobe. 7. History of hyperlipidemia. We will continue a statin when he is back on p.o. Job ID: [id number] [facility]
[2019-02-08 16:58] LABS: Anion Gap 18 mmol/L (10-20); BUN (Urea Nitrogen) 38 mg/dL (8.4-25.7); Calc. Creatinine Clearance 0 mL/min (70-130); Calcium 7.8 mg/dL (7.8-10.44); Carbon Dioxide 22 mmol/L (22-29); Chloride 98 mmol/L (98-107); Estimated GFR-MDRD 9; Glucose 533 mg/dL (70-105); Potassium 4.4 mmol/L (3.5-5.1); Sodium 134 mmol/L (136-145)
[2019-02-08] MEDS: Heparin 5,000 UNITS/ML VIAL SC SCH ×2 (17:01→19:55)
[2019-02-08] MEDS: cefTRIAXone\\ROCEPHIN 1 GM in Sodium Chloride 0.9% 100 ML IVPB SCH (17:30)
[2019-02-08 17:56] VITALS: BMI 38.6
[2019-02-08] MEDS ORDERED: Labetalol HCl 100 MG/20 ML VIAL SLOW IVP PRN (18:03)
[2019-02-08] MEDS ORDERED: hydrALAZINE 20 MG/ML VIAL SLOW IVP PRN (18:03)
[2019-02-08 18:08] LABS: Lactic Acid 3.7 mmol/L (0.5-2.2)
[2019-02-08 19:12] LABS: Troponin I 0.087 ng/mL (< 0.028)
[2019-02-08] MEDS: Propofol 1,000 MG/100 ML VIAL IV PRN (19:55)
--- NOTE | 2019-02-08 20:18 | CON ---
DATE OF CONSULTATION: 02/08/2019 SERVICE: Pulmonary Medicine. REASON FOR CONSULTATION: Intubated patient. HISTORY OF PRESENT ILLNESS: The patient is a 58-year-old male with past medical history significant for seizure disorder. Apparently, he woke up in his usual state of health. At one point, he started having some abrupt altered sensorium. He ended up having some shaking. That being said, he was able to speak to his family while doing so. They were afraid that he was having a seizure and ambulance was called. In route, he was given 2 mg of Ativan and by the time he arrived in the emergency department, he had a very low GCS, and was intubated to protect his airway. He cannot provide me any additional elements of the history. During the intubation process, he was paralyzed, got 40 mg of etomidate, multiple boluses of propofol. He has minimal response at this time. He is overbreathing the ventilator and he demonstrates grimace with very deep stimulation, particular to the left upper and lower extremity. That being said, otherwise, he is not responding significantly. PAST MEDICAL HISTORY: 1. Peripheral vascular disease. 2. History of CVA with left-sided hemiparesis. 3. Type-2 diabetes mellitus. 4. End-stage renal disease. PAST SURGICAL HISTORY: 1. Below-knee amputation on right. 2. Cholecystectomy. 3. Tonsillectomy. 4. History of hemorrhagic stroke with craniotomy. FAMILY HISTORY: Noncontributory. SOCIAL HISTORY: Negative for alcohol, tobacco, or illicit drug use. He is a former smoker. He had a greater than 30 pack-year history of smoking. He currently is being taken care at home with his family. It is my understanding that he is currently able to walk around with his prosthetic device and a walker. He requires a little bit of assistance with mobility. ALLERGIES: PENICILLIN, TAZOBACTAM. MEDICATIONS: List of his inpatient medications was reviewed. No specific updates were made at this time. REVIEW OF SYSTEMS: Review of systems cannot be obtained as the patient is currently sedated. PHYSICAL EXAMINATION: HEENT: Normocephalic and atraumatic. Sclerae white. Conjunctivae pink. Oral mucosa is moist without lesions. LUNGS: Very good air entry. There is not much of a prolonged expiratory phase or wheezing present. HEART: Normal rate, regular. ABDOMEN: Soft, nontender, nondistended. Bowel sounds are positive. MUSCULOSKELETAL: No cyanosis or clubbing. There is trace to 1+ pitting in bilateral lower extremities. : Munzo catheter in place. NEUROLOGIC: Currently, he is heavily sedated. He is overbreathing the ventilator comfortably. His pupils are extraordinarily sluggish with bright light stimulation. He demonstrates a cough and a gag. With noxious stimuli to the right upper and lower extremities, he has a grimace and very feeble withdrawal. I cannot elicit any withdraw from the left upper or lower extremity. LABORATORY DATA: WBC 8.2, hemoglobin 12.6, and platelets 142,000. PH 7.31, pCO2 of 41, pO2 of 265. Creatinine 6.42. Basic metabolic profile is otherwise unremarkable. Blood sugar is greater than the assay limit of 550. Troponin is gently downtrending, ammonia 25. Liver function studies are unremarkable. Urinalysis is essentially unremarkable, though he does have significant leukocyte esterase, and pyuria. That being said, bacteria are rare. Urine drug screen is significant for minimally elevated beta hydroxybutyric acid. Otherwise, toxins are unremarkable. IMAGING DATA: 1. CT of the brain demonstrates chronic findings without acute intracranial abnormalities. Diffuse ventricular prominence is present. 2. Chest x-ray demonstrates atelectasis of the right upper lobe with obligate volume loss on that side. Otherwise, I do not appreciate any acute abnormality. There is an endotracheal tube in good position, an enteric catheter coursing below the level of the diaphragm into the region of the stomach. ASSESSMENT: 1. Acute hypoxic respiratory failure. 2. History of seizure disorder with possible seizure (suspect metabolic issues). 3. Atelectasis of the right upper lobe. 4. Metabolic acidosis. 5. Type-2 diabetes mellitus with severe hyperglycemia. 6. End-stage renal disease. DISCUSSION AND PLAN: At this point, I will allow some of the sedating medications to wear off. We will continue antibiotics. I will repeat a chest x-ray in the morning. If he has persistent right upper lobe atelectasis, a bronchoscopy will be considered. I will check a stat lactate, and a prolactin level. If these are significantly abnormal, a stat EEG may be considered. That being said, at this point, I have a low clinical index of suspicion for seizure, given the description that was witnessed. Critical care time: 30 minutes. Job ID: [id number] MTDD
[2019-02-08] MEDS ORDERED: Famotidine/PF 20 mg/2ml Vial SLOW IVP SCH (21:00)
[2019-02-08 22:59] LABS: Anion Gap 15 mmol/L (10-20); BUN (Urea Nitrogen) 38 mg/dL (8.4-25.7); Calc. Creatinine Clearance 20 mL/min (70-130); Calcium 7.5 mg/dL (7.8-10.44); Carbon Dioxide 24 mmol/L (22-29); Chloride 101 mmol/L (98-107); Estimated GFR-MDRD 9; Glucose 143 mg/dL (70-105); Potassium 3.8 mmol/L (3.5-5.1); Sodium 136 mmol/L (136-145)
[2019-02-09] MEDS: Propofol 1,000 MG/100 ML VIAL IV PRN ×2 (02:52→04:22)
[2019-02-09 07:09] LABS: #Eosinphils 0.2 thou/uL (0.0-0.7); #Lymphocytes 2.3 thou/uL (1.20-3.40); #Monocytes 0.7 thou/uL (0.11-0.59); #Neutrophils 6.5 thou/uL (1.40-6.50); %Basophils 0.3 % (0.0-1.0); %Lymphocytes 23.5 % (21.0-51.0); %Monocytes 6.8 % (0.0-10.0); %Neutrophils 67.4 % (42.0-75.0); Hemoglobin 11.1 g/dL (14.0-18.0); Mean Corpuscular HGB CONC 34.1 g/dL (32.0-36.0); Mean Corpuscular Hemoglobin 32.9 pg (27.0-31.0); Mean Corpuscular Volume 96.5 fL (78.0-98.0); Mean Platelet Volume 8.6 fL (7.4-10.4); Platelet Count 139 thou/uL (130-400); RBC Distribution Width 13.5 % (11.5-14.5); Red Blood Cell (RBC) Count 3.38 mill/uL (4.70-6.10); White Blood Cell (WBC) Count 9.6 thou/uL (4.8-10.8)
[2019-02-09 07:26] LABS: Lactic Acid 1.3 mmol/L (0.5-2.2)
[2019-02-09 07:30] LABS: ALT (SGPT) 8 U/L (8-55); AST (SGOT) 12 U/L (5-34); Albumin 3.1 g/dL (3.5-5.0); Alkaline Phosphatase 94 U/L (40-110); Anion Gap 17 mmol/L (10-20); BUN (Urea Nitrogen) 41 mg/dL (8.4-25.7); Bilirubin, Total 0.3 mg/dL (0.2-1.2); Calc. Creatinine Clearance 18 mL/min (70-130); Calcium 7.5 mg/dL (7.8-10.44); Carbon Dioxide 21 mmol/L (22-29); Chloride 100 mmol/L (98-107); Estimated GFR-MDRD 8; Globulin 2.9 g/dL (2.4-3.5); Glucose 149 mg/dL (70-105); Potassium 4.1 mmol/L (3.5-5.1); Sodium 134 mmol/L (136-145)
--- NOTE | 2019-02-09 07:48 | RAD ---
Chest one view HISTORY: Infiltrate. Follow-up. COMPARISON: 02/08/2019. FINDINGS: Cardiac silhouette is magnified and enlarged. Pulmonary vasculature upper limits of normal. Right upper lobe is now well aerated with minimal residual atelectasis. Endotracheal catheter tip remains just above the level of the robert. Nasogastric tube descends to the abdomen. bus driver/monitor leads overlie the chest. IMPRESSION: Interval reexpansion of the right upper lobe. Minimal residual atelectasis. Other findings are stable
[2019-02-09] MEDS: Heparin 5,000 UNITS/ML VIAL SC SCH ×3 (08:57→20:26)
[2019-02-09] MEDS: Famotidine/PF 20 mg/2ml Vial SLOW IVP SCH (08:57)
[2019-02-09] MEDS: levETIRAcetam In NaCl (Iso-Os) 1,000 MG in Premix Bag 1 BAG IVPB SCH ×2 (08:58→20:25)
[2019-02-09] MEDS ORDERED: Dextrose 5% in Water 1,000 ML IV PRN (10:55)
[2019-02-09] MEDS ORDERED: Dextrose 50% Abboject 50 ML SYRINGE SLOW IVP PRN (10:55)
[2019-02-09] MEDS ORDERED: Insulin Glargine 20 UNITS in Pre-Filled Syringe 1 EACH SC SCH (11:00)
--- NOTE | 2019-02-09 11:15 | PRG ---
DATE OF SERVICE: 02/09/2019 SERVICE: Pulmonary Medicine INTERVAL HISTORY: Overnight, the patient has improved mentation barragan. He is waking up off sedation. He is appropriate and following some simple commands. He cannot provide much in the way of details of history. Otherwise, there has been no interval change to his condition. He did not have any significant events overnight. PHYSICAL EXAMINATION: VITAL SIGNS: Afebrile with a T-max of 100.3, pulse 73, blood pressure 135/50, respirations 16, saturation 100%, currently on 21% FiO2 and PEEP of 5. GENERAL: The patient is awake and alert, in no apparent distress. LUNGS: Decent air entry. There is no prolonged expiratory phase. Wheezing present. HEART: Normal rate, regular. ABDOMEN: Soft, nontender, nondistended. Bowel sounds are positive. MUSCULOSKELETAL: No cyanosis or clubbing. There is trace to 1+ pitting throughout. : Munoz catheter in place. NEUROLOGIC: Grossly nonfocal. LABORATORY DATA: WBC 9.6, hemoglobin 11.1, platelets 139,000. Sodium 134, creatinine 7.2. Basic metabolic profile is otherwise unremarkable. Liver function studies are normal. Procalcitonin is 0.33. Urinalysis is unremarkable. Blood cultures x2 and urine culture remain unremarkable. IMAGING DATA: Chest x-ray demonstrates interval resolution in the atelectasis of the right upper lobe. Endotracheal tube remains in good position. Enteric catheter courses below the level of the diaphragm. ASSESSMENT: 1. Acute hypoxic respiratory failure. 2. Seizure disorder with possible seizure. 3. Atelectasis of the right upper lobe, resolved. 4. Metabolic acidosis, improving. 5. Type 2 diabetes mellitus with hyperglycemia. 6. End-stage renal disease. DISCUSSION AND PLAN: The patient is doing really well from mentation standpoint. At this point, we will put him on a spontaneous breathing trial. If he meets criteria, extubation will be considered. We will continue his empiric antibiotics at this time, but is not clear to me what we are addressing. If he does well into the afternoon, he could be considered for transition out of the ICU to the floor. We will need to watch his respiratory status quite closely as he was given a couple liters of fluid in the emergency department. Critical care time: 30 minutes. Job ID: [id number] MTDD
[2019-02-09] MEDS: Sevelamer Carbonate 800 MG TAB PO SCH ×2 (12:19→17:32)
--- NOTE | 2019-02-09 12:30 | PRG ---
DATE OF SERVICE: 02/09/2019 SUBJECTIVE: The patient is seen and examined at the bedside. He is in C1. He is intubated and sedated. OBJECTIVE: VITAL SIGNS: Blood pressure 141/58, pulse is 73, respiratory rate is 15, O2 saturation is 96% on the vent. HEENT: His pupils are approximately 2 mm to 3 mm and equal bilaterally, but not very responsive to light. Sclerae are nonicteric. Conjunctivae are pinkish. LUNGS: Breath sounds somewhat diminished at both bases. HEART: S1 and S2 normal. No S3. No S4. ABDOMEN: Soft, nontender, and nondistended. EXTREMITIES: Right [id number] amputee status. NEUROLOGIC: Postponed since he is sedated. LABORATORY DATA: White count of 9.6, hemoglobin 11.1, hematocrit 32.7, platelet count 139,000. Sodium of 134, potassium 4.1, chloride 100, CO2 of 21, BUN 41, creatinine 7.2, glycemia is ranging from 132 to 318, calcium 7.5, albumin 3.1, globulin 2.9, procalcitonin 0.33, prolactin 31.86. Microbiology, urine culture negative and blood culture negative. IMPRESSION: 1. Acute encephalopathy. 2. Recurrent seizures. 3. Mild diabetic ketoacidosis. 4. End-stage renal disease, on dialysis. 5. History of hypertension. 6. Urinary tract infection was ruled out with negative urine culture. 7. Atelectasis of the right upper lobe, resolved. 8. Hyperlipidemia. DISCUSSION: The patient is switched to subcutaneous long-acting and short-acting insulin with sliding scale from his insulin drip. He will be most likely extubated if he passes the trial per Dr. De. It is not clear whether the patient is taking any anti-seizure medications at home, but we will keep him on Keppra 1000 mg IV piggyback every 12 hours, and if he is extubated, we will switch him to p.o. We will continue his antibiotic, ceftriaxone, for now until the situation is more clear. Job ID: [id number]
[2019-02-09] MEDS: cefTRIAXone\\ROCEPHIN 1 GM in Sodium Chloride 0.9% 100 ML IVPB SCH (15:56)
[2019-02-09] MEDS: HumaLOG 300 UNITS/3 ML VIAL SC PRN ×2 (17:32→21:17)
[2019-02-09] MEDS: cloNIDine 0.1 MG TAB PO SCH (20:25)
[2019-02-10 05:59] LABS: #Eosinphils 0.2 thou/uL (0.0-0.7); #Lymphocytes 1.6 thou/uL (1.20-3.40); #Monocytes 0.5 thou/uL (0.11-0.59); #Neutrophils 3.8 thou/uL (1.40-6.50); %Basophils 0.1 % (0.0-1.0); %Eosinophils 2.9 % (0.0-10.0); %Lymphocytes 26.4 % (21.0-51.0); %Monocytes 7.6 % (0.0-10.0); %Neutrophils 62.9 % (42.0-75.0); Hemoglobin 11.4 g/dL (14.0-18.0); Mean Corpuscular HGB CONC 33.9 g/dL (32.0-36.0); Mean Corpuscular Hemoglobin 32.7 pg (27.0-31.0); Mean Corpuscular Volume 96.7 fL (78.0-98.0); Mean Platelet Volume 8.5 fL (7.4-10.4); Platelet Count 129 thou/uL (130-400); RBC Distribution Width 13.5 % (11.5-14.5); Red Blood Cell (RBC) Count 3.48 mill/uL (4.70-6.10); White Blood Cell (WBC) Count 6.1 thou/uL (4.8-10.8)
[2019-02-10] MEDS: HumaLOG 300 UNITS/3 ML VIAL SC PRN ×3 (06:16→22:45)
[2019-02-10 06:20] LABS: Anion Gap 17 mmol/L (10-20); BUN (Urea Nitrogen) 49 mg/dL (8.4-25.7); Calc. Creatinine Clearance 14 mL/min (70-130); Calcium 7.7 mg/dL (7.8-10.44); Carbon Dioxide 23 mmol/L (22-29); Chloride 101 mmol/L (98-107); Estimated GFR-MDRD 6; Glucose 196 mg/dL (70-105); Potassium 4.3 mmol/L (3.5-5.1); Sodium 137 mmol/L (136-145)
[2019-02-10] MEDS: Sevelamer Carbonate 800 MG TAB PO SCH ×3 (07:38→18:08)
[2019-02-10] MEDS: cloNIDine 0.1 MG TAB PO SCH ×2 (07:44→21:46)
[2019-02-10] MEDS: Famotidine/PF 20 mg/2ml Vial SLOW IVP SCH (08:38)
[2019-02-10] MEDS: Heparin 5,000 UNITS/ML VIAL SC SCH ×3 (08:38→21:45)
[2019-02-10] MEDS: FLUoxetine HCl 20 MG CAP PO SCH (08:39)
[2019-02-10] MEDS: levETIRAcetam 500 MG TAB PO SCH ×2 (08:39→21:46)
--- NOTE | 2019-02-10 08:44 | CON ---
DATE OF CONSULTATION: HISTORY OF PRESENT ILLNESS: Mr. Hernandez is a 58-year-old male with ESRD, on maintenance hemodialysis and was admitted for seizure disorder. He was temporally intubated and placed on ventilator support, currently now extubated. The patient is more arousable. Can follow simple commands. We are being consulted for his maintenance hemodialysis. He did receive dialysis last Sunday. REVIEW OF SYSTEMS: No chest pain. Positive for seizure activity. No nausea. No vomiting. No diarrhea. No constipation. No productive cough. No abdominal pain. No dysuria. No urinary frequency. No melena. No hematemesis. No nausea. No vomiting. No diarrhea. No headache. MEDICATIONS: Medications of February 09, 2019, 1. Ceftriaxone 1 g IV q.24 hours. 2. Famotidine 20 mg IV daily. 3. Heparin 5000 units subcu t.i.d. 4. Hydralazine p.r.n. 5. Levetiracetam 1000 mg b.i.d.. PAST MEDICAL HISTORY: ESRD from diabetic nephropathy, type 2 diabetes mellitus, status post CVA, history of seizure disorder, status post multiple foot infections, hypertension, status post CHF, peripheral vascular disease. PAST SURGICAL HISTORY: Status post right BKA, status post right foot/toe amputation, status post AV fistula placement, status post cuffed dialysis catheter placement, status post laparoscopic cholecystectomy, status post intubation, status post debridement of right foot ulcer, status post left toe amputation. SOCIAL HISTORY: The patient is with several children. 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 Lives in [place]. Medically disabled. No IV drug abuse. Status post multiple blood transfusions. No alcohol. No smoking. No IV drug abuse. ALLERGIES: NONE. TRAUMA: None. IMMUNIZATION: Up-to-date. HOSPITALIZATIONS: Please see past medical history. FAMILY HISTORY: No family history of ESRD. PHYSICAL EXAMINATION: VITAL SIGNS: Blood pressure is noted at 135/50, heart rate 73, respiratory rate 16, and O2 saturation 100%. GENERAL: Noted to be awake, alert, comfortable, not in distress, but somewhat lethargic. SKIN: Adequate turgor. HEENT: Pinkish conjunctivae. Anicteric sclerae. No neck mass. No carotid bruits. No JVD. CHEST: No deformities. No JVD. LUNGS: Decreased breath sounds. HEART: Normal sinus rhythm. No murmur. No gallops. No rubs. ABDOMEN: Globular, soft, nontender. No masses. EXTREMITIES: No edema. No deformities. Status post right BKA. NEUROLOGIC: Awake, somewhat lethargic, but can follow simple commands. No tremors. No asterixis. LABORATORY DATA: On February 09, 2019, white count 9.6, hemoglobin 11.1. Sodium 134, potassium 4.1, chloride 100, carbon dioxide 21, BUN 41, creatinine 7.2, glucose 149, calcium 7.5. AST 12, ALT 8. Repeat glucose 143. White count 9.6, hemoglobin 11.1. ASSESSMENT: 1. Seizure disorder, currently on levetiracetam. Continue supportive care. 2. End-stage renal disease, stable. We will continue current Sunday, Sunday, and Sunday hemodialysis regimen. I do not see any indication for an emergent hemodialysis today. 3. Review of the last Kt/V suggests he is adequately dialyzed with the current dialysis regimen. Job ID: [id number]
[2019-02-10] MEDS ORDERED: Insulin Glargine 20 UNITS in Pre-Filled Syringe 1 EACH SC SCH (09:00)
--- NOTE | 2019-02-10 10:02 | PRG ---
DATE OF SERVICE: 02/10/2019 SERVICE: Renal Medicine. SUBJECTIVE: Mr. Hernandez is a 58-year-old male with ESRD-on maintenance hemodialysis, was admitted for seizure episode. He is doing better. He has now been extubated. No new complaints today. He is more awake. OBJECTIVE: VITAL SIGNS: Blood pressure is 132/50, heart rate 68, respiratory rate 8, O2 saturation 98%. GENERAL: Awake, alert, comfortable, not in distress, obese. SKIN: Adequate turgor. HEENT: He has a pinkish conjunctivae. Anicteric sclerae. NECK: No neck mass. No carotid bruits. No JVD. CHEST: No deformities. LUNGS: Clear breath sounds. HEART: Normal sinus rhythm. No murmur. No gallops. No rubs. ABDOMEN: Globular. Soft. Nontender. No masses. EXTREMITIES: No edema. No deformities. MEDICATIONS: Medications of February 10, 2019, reviewed. LABORATORY DATA: February 10, 2019; white count 6.1, hemoglobin 11.4, sodium 137, potassium 4.3, chloride 101, carbon dioxide 23, BUN 49, creatinine 8.86, calcium 7.7. ASSESSMENT AND PLAN: 1. End-stage renal disease, stable. We will continue current Sunday, Sunday, and Sunday dialysis. The patient is scheduled for dialysis once he is out of the ICU. Fluid removal only as tolerated. 2. Seizure disorder, doing well. No recurrence of seizures. The patient currently on his antiseizure medication, levetiracetam at 1000 mg p.o. b.i.d. 3. Agree with current management. Job ID: [id number]
--- NOTE | 2019-02-10 11:05 | PRG ---
DATE OF SERVICE: 02/10/2019 SERVICE: Pulmonary Medicine. INTERVAL HISTORY: The patient is doing really well from respiratory standpoint. Breathing comfortably. He remains on room air. He will be getting dialysis today. There were no events overnight. PHYSICAL EXAMINATION: VITAL SIGNS: Afebrile, pulse 69, blood pressure 137/64, respirations 14, and saturation 100% on room air. GENERAL: The patient is awake and alert, in no apparent distress. LUNGS: Decent air entry. Dependent crackles are noted. No prolonged expiratory phase or wheezing is appreciated. HEART: Normal rate and regular. ABDOMEN: Soft, nontender, and nondistended. Bowel sounds are positive. MUSCULOSKELETAL: No cyanosis or clubbing. There is trace 1+ pitting in the bilateral lower extremities. NEUROLOGIC: Grossly nonfocal. LABORATORY DATA: WBC 6.1, hemoglobin 11.4 and stable, platelets 129,000. A pH 7.31. Creatinine 8.86 and gently up trending. Basic metabolic profile is otherwise unremarkable. Calcium 7.7. Blood cultures x2 and urine culture are unremarkable. ASSESSMENT: 1. Acute hypoxic respiratory failure. 2. Seizure disorder with suspected seizure. 3. Atelectasis of the right upper lobe, resolved. 4. Metabolic acidosis, resolved. 5. Type 2 diabetes mellitus with hyperglycemia, improved. 6. End-stage renal disease. DISCUSSION AND PLAN: The patient is doing fine from respiratory standpoint. At this point, he is stable for transition out of the ICU to the Stroke Unit. Pulmonary will continue to follow. If he remains here, but when he leaves the ICU, I will sign off. Please call with additional questions or concerns through time. Job ID: [id number]
--- NOTE | 2019-02-10 12:47 | PRG ---
DATE OF SERVICE: 02/10/2019 SUBJECTIVE: The patient is seen and examined at the bedside. He is feeling significantly better. He is able to answer my question. He does not remember what happened yesterday. OBJECTIVE: VITAL SIGNS: Blood pressure is 137/64, pulse is 69, respiratory rate is 14, O2 saturation is 100%. HEENT: His pupils are responding to light properly. Sclerae are nonicteric. Oral mucosa is moist. NECK: Supple. LUNGS: Clear. HEART: S1, S2 normal. No S3. No S4. ABDOMEN: Soft, nontender, nondistended. EXTREMITIES: No clubbing, cyanosis, or edema. NEUROLOGICAL: He is alert and oriented x4. There is no any motor or sensory deficits. LABORATORY DATA: Labs showed white count of 6.1, hemoglobin of 11.4, hematocrit of 33.7, platelet count is 129,000. Electrolytes within normal limits. BUN of 49, creatinine 8.86, glycemia is ranging from 132 to 228, calcium is 7.7. Microbiology; 2 blood cultures negative. Urine culture, negative. IMPRESSION: 1. Acute encephalopathy, resolved. This was most likely related to his seizures. 2. Recurrent seizures. 3. Mild diabetic ketoacidosis, resolved. 4. End-stage renal disease, on dialysis. 5. Atelectasis of the right upper lobe, resolved. 6. Hyperlipidemia. PLAN: The patient will be moved out to Stroke Unit today. He is going to be switched to p.o. Keppra 1000 mg twice a day. I will continue his ceftriaxone since he had right upper lobe atelectasis, which resolved at this point. We will continue his hemodialysis per Dr. Dalal and we will put him back on his 35 units of long-acting insulin Lantus a day. Job ID: [id number]
[2019-02-10] MEDS: cefTRIAXone\\ROCEPHIN 1 GM in Sodium Chloride 0.9% 100 ML IVPB SCH (18:09)
[2019-02-11] MEDS ORDERED: Insulin Glargine 35 UNITS in Pre-Filled Syringe 1 EACH SC SCH (09:00)
--- NOTE | 2019-02-11 09:21 | PRG ---
DATE OF SERVICE: 02/11/2019 SUBJECTIVE: Mr. Hernandez is a 58-year-old male with ESRD, on maintenance hemodialysis. He was initially admitted for seizure episode. He underwent hemodialysis yesterday without any difficulty. This morning, he is more awake. He denies any new complaints. No chest pain or shortness of breath. OBJECTIVE: VITAL SIGNS: Blood pressure is 158/67, heart rate 65, respiratory rate 12, temperature 98.8, and pulse ox 94%. GENERAL: The patient is awake, alert, comfortable, not in distress. SKIN: Adequate turgor. HEENT: He has a pinkish conjunctivae. Anicteric sclerae. NECK: No neck mass. No carotid bruits. No JVD. CHEST: No deformities. LUNGS: Clear breath sounds. No wheezing. No crackles. HEART: Normal sinus rhythm. No murmur. No gallops. No rubs. ABDOMEN: Globular, soft, and nontender. No masses. EXTREMITIES: Shows no edema, status post right BKA. MEDICATIONS: Medications of February 11, 2019, reviewed. LABORATORY DATA: Laboratories of February 11, 2019; glucose 153. On February 10, 2019; potassium 4.3, BUN 49, creatinine 8.86. Hemoglobin 11.4. ASSESSMENT AND PLAN: 1. End-stage renal disease, stable. We will continue current hemodialysis regimen. Fluid removal only as tolerated. 2. Status post seizure activity - no recurrence of seizures in the last several days. Continue levetiracetam. 3. Hypertension, stable. Continue current BP medications. We will recheck basic metabolic panel and CBC in a.m. Job ID: [id number]
[2019-02-11] MEDS: FLUoxetine HCl 20 MG CAP PO SCH (11:08)
[2019-02-11] MEDS: levETIRAcetam 500 MG TAB PO SCH (11:08)
[2019-02-11] MEDS: Heparin 5,000 UNITS/ML VIAL SC SCH ×2 (11:08→15:00)
[2019-02-11] MEDS: Sevelamer Carbonate 800 MG TAB PO SCH ×2 (11:09→13:10)
[2019-02-11] MEDS: Famotidine/PF 20 mg/2ml Vial SLOW IVP SCH (11:09)
[2019-02-11] MEDS: cloNIDine 0.1 MG TAB PO SCH (11:09)
[2019-02-11 11:19] VITALS: BP 165/72
[2019-02-11 11:41] VITALS: TEMP 98.6
--- NOTE | 2019-02-11 12:23 | PDOC.HOSPP ---
- Subjective Encounter Date: 02/11/19 Encounter Time: 10:30 Subjective: Patient seen and examined. No new complaints. No overnight events - Objective Vital Signs & Weight: Vital Signs (12 hours) Temp Pulse Pulse Pulse Resp BP BP 02/11/19 11:40 98.6 F 65 16 02/11/19 11:09 165/72 H 02/11/19 09:32 71 67 177/74 H 02/11/19 07:51 98.8 F 65 12 02/11/19 04:00 98.2 F 63 16 BP BP Pulse Ox 02/11/19 11:40 165/72 H 93 L 02/11/19 11:09 02/11/19 09:32 145/65 H 02/11/19 07:51 158/67 H 69 L 02/11/19 04:00 139/65 94 L Weight Admit Weight 246 lb Weight 246 lb 7.629 oz Most Recent Monitor Data Heart Rate from ECG 73 NIBP 137/64 NIBP BP-Mean 88 Respiration from ECG 20 SpO2 96 I&O: 02/10/19 02/11/19 02/12/19 06:59 06:59 06:59 Intake Total 842 150 Output Total 140 100 Balance 702 50 Result Diagrams: 02/10/19 05:48 02/10/19 05:48 Additional Labs: Accuchecks 02/11/19 02/11/19 02/10/19 10:36 06:07 19:48 POC Glucose 223 H 153 H 217 H 02/10/19 16:58 POC Glucose 142 H EKG Reviewed by me: Yes Hospitalist ROS - Review of Systems Eyes: denies: pain, vision change, conjunctivae inflammation, eyelid inflammation, redness, other ENT: denies: ear pain, ear discharge, nose pain, nose discharge, nose congestion , mouth pain, mouth swelling, throat pain, throat swelling, other Respiratory: denies: cough, dry, shortness of breath, hemoptysis, SOB with excertion, pleuritic pain, sputum, wheezing, other Cardiovascular: denies: chest pain, palpitations, orthopnea, paroxysmal noc. dyspnea, edema, light headedness, other Gastrointestinal: denies: nausea, vomiting, abdominal pain, diarrhea, constipation, melena, hematochezia, other Genitourinary: denies: dysuria, frequency, incontinence, hematuria, retention, other Musculoskeletal: denies: neck pain, shoulder pain, arm pain, back pain, hand pain, leg pain, foot pain, other Skin: denies: rash, lesions, damian, bruising, other - Medication Medications: Active Medications Generic Name Dose Route Start Last Admin Trade Name Freq PRN Reason Stop Dose Admin Clonidine 0.1 mg 02/09/19 21:00 02/11/19 11:09 Catapres PO 0.1 mg BID HERI Administration Famotidine 20 mg 02/09/19 09:00 02/11/19 11:09 Pepcid SLOW IVP 20 mg DAILY HERI Administration Fluoxetine HCl 20 mg 02/10/19 09:00 02/11/19 11:08 Prozac PO 20 mg DAILY HERI Administration Heparin Sodium (Porcine) 5,000 units 02/08/19 15:15 02/11/19 11:08 Heparin SC 5,000 units TID HERI Administration Ceftriaxone Sodium 1 gm/ 100 mls @ 200 mls/hr 02/08/19 16:00 02/10/19 18:09 Sodium Chloride IVPB 100 mls Q24HR HERI Administration Insulin Glargine 35 units/ 0.35 mls @ 0 mls/hr 02/11/19 09:00 02/11/19 11:09 Miscellaneous Medication SC 0.35 mls QAM HERI Administration Insulin Human Lispro 0 units 02/09/19 10:55 02/10/19 22:45 Humalog SC 3 unit .MILD SLIDING SCALE PRN Administration Mild Correctional Scale Levetiracetam 1,000 mg 02/10/19 09:00 02/11/19 11:08 Keppra PO 1,000 mg BID HERI Administration Sevelamer Carbonate 800 mg 02/09/19 12:00 02/11/19 11:09 Renvela PO 800 mg TID-WM HERI Administration - Exam General Appearance: NAD, awake alert Eye: PERRL, anicteric sclera ENT: normocephalic atraumatic, no oropharyngeal lesions Neck: supple, symmetric, no JVD Heart: RRR, no murmur, no gallops, no rubs Respiratory: CTAB, no wheezes, no rales, no ronchi Gastrointestinal: soft, non-tender, non-distended, normal bowel sounds Extremities: no cyanosis, no clubbing, no edema Extremities - other findings: right BKA Skin: normal turgor, no lesions Neurological: cranial nerve grossly intact, normal sensation to touch Musculoskeletal: normal tone, normal strength Psychiatric: normal affect, normal behavior Hosp A/P (1) Encephalopathy acute Code(s): G93.40 - ENCEPHALOPATHY, UNSPECIFIED Status: Acute (2) Recurrent seizures Code(s): G40.909 - EPILEPSY, UNSP, NOT INTRACTABLE, WITHOUT STATUS EPILEPTICUS Status: Acute (3) Anemia of renal disease Code(s): D63.1 - ANEMIA IN CHRONIC KIDNEY DISEASE Status: Chronic (4) DM2 (diabetes mellitus, type 2) Status: Chronic Qualifiers: (5) Diabetic neuropathic arthropathy Code(s): E11.610 - TYPE 2 DIABETES MELLITUS W DIABETIC NEUROPATHIC ARTHROPATHY Status: Chronic (6) Dyslipidemia Code(s): E78.5 - HYPERLIPIDEMIA, UNSPECIFIED Status: Chronic (7) ESRD (end stage renal disease) on dialysis Code(s): N18.6 - END STAGE RENAL DISEASE; Z99.2 - DEPENDENCE ON RENAL DIALYSIS Status: Chronic (8) HTN (hypertension) Code(s): I10 - ESSENTIAL (PRIMARY) HYPERTENSION Status: Chronic Qualifiers: (9) Obesity (BMI 30-39.9) Code(s): E66.9 - OBESITY, UNSPECIFIED Status: Chronic (10) Secondary hyperparathyroidism of renal origin Code(s): N25.81 - SECONDARY HYPERPARATHYROIDISM OF RENAL ORIGIN Status: Chronic (11) Atelectasis Status: Acute - Plan old records reviewed/req, continue antibiotics medication reviewed as above symptomatic treatment continue rocephin HD as per nephrology continue nathaly
[2019-02-11] MEDS: HumaLOG 300 UNITS/3 ML VIAL SC PRN (13:10)
--- NOTE | 2019-02-11 13:31 | DIS ---
DATE OF ADMISSION: 02/08/2019 DATE OF DISCHARGE: 02/11/2019 PRIMARY CARE PHYSICIAN: DISCHARGE DISPOSITION: Home. PRIMARY DISCHARGE DIAGNOSES: Acute encephalopathy, resolved; atelectasis of right upper lobe, resolved; recurrent seizure. SECONDARY DISCHARGE DIAGNOSES: End-stage renal disease, on hemodialysis; secondary hyperparathyroidism of renal origin; anemia of renal disease; obesity with BMI 38; hypertension; history of cerebrovascular accident with residual effect; dyslipidemia; diabetes type 2; diabetic neuropathy and arthropathy; history of right below-knee amputation. PRIMARY PROCEDURE/OPERATION: Maintenance hemodialysis. RADIOLOGICAL INVESTIGATION: CT brain negative. Chest x-ray is unremarkable. Initial chest x-ray on admission showed atelectasis that was resolved on repeat x-ray. SIGNIFICANT LABORATORY DATA: WBC 6.1, hemoglobin 11.4, platelet 129. Sodium 137, creatinine 8.86, calcium 7.7. Urinalysis unremarkable. Urine drug screen negative. Blood culture and urine culture negative. DISCHARGE MEDICATIONS: 1. Omnicef 300 mg p.o. daily for 5 days. 2. Keppra 1000 mg p.o. b.i.d. 3. Vitamin D3 of 2000 units p.o. daily. 4. Clonidine 0.1 mg b.i.d. 5. Prozac 20 mg daily. 6. Lantus 35 units subcu at bedtime. 7. Renvela 800 mg t.i.d. 8. Velphoro 500 mg b.i.d. 9. Aspirin 81 mg daily. 10. Procrit every 7 days. 11. Tylenol p.r.n. basis. CONTRAINDICATION: None. CODE STATUS: Full code. INPATIENT DRAFTER AUTOMOTIVE DESIGN LAYOUT: Pulmonary group was managing ventilator. Nephrology was following for maintenance hemodialysis. TEST RESULT PENDING ON DISCHARGE: None. ALLERGIES: PENICILLIN. DISCHARGE PLAN: Posthospital, the patient will follow up with primary care physician. The patient is advised to avoid driving or heavy machinery activity until cleared by Neurology. The patient is instructed to follow up with Neurology after discharge. The patient is an instructed to follow up with primary care physician as well as Neurology. HOSPITAL COURSE: The patient was admitted for recurrent seizure. He required intubation for airway protection. The patient had atelectasis in the right upper lobe, which was improved upon repeat testing. He was empirically treated with Rocephin. On discharge, we changed to Omnicef. For his seizure, we started Keppra during this admission. The patient will follow up with Neurology. The patient is doing much better at this point and he wants to go home. He will continue his regular hemodialysis. The patient is seen and examined at bedside today. Please see my progress note from today for further detail. Job ID: [id number]
== END 2019-02-11 15:15 | disposition home or self-care (01) | DRG 100 ==
LOC: ERS 11:51 → CCU 14:38 → 2SE 02-10 11:52
PROVIDERS: ADMIT Internal Medicine; ATTEND Internal Medicine
PROC: 5A1935Z Respiratory Ventilation, Less than 24 Consecutive Hours (ICD-10-PCS; principal; 2019-02-08)
PROC: 0BH17EZ Insertion of Endotracheal Airway into Trachea, Via Natural or Artificial Opening (ICD-10-PCS; 2019-02-08)
DX: G40.909 Epilepsy, unspecified, not intractable, without status epilepticus (principal); J96.01 Acute respiratory failure with hypoxia; N18.6 End stage renal disease; E11.10 Type 2 diabetes mellitus with ketoacidosis without coma; G93.40 Encephalopathy, unspecified; J98.11 Atelectasis; I69.354 Hemiplegia and hemiparesis following cerebral infarction affecting left non-dominant side; I13.2 Hypertensive heart and chronic kidney disease with heart failure and with stage 5 chronic kidney disease, or end stage renal disease; N25.81 Secondary hyperparathyroidism of renal origin; D63.1 Anemia in chronic kidney disease; E66.9 Obesity, unspecified; E11.22 Type 2 diabetes mellitus with diabetic chronic kidney disease; E11.40 Type 2 diabetes mellitus with diabetic neuropathy, unspecified; E78.5 Hyperlipidemia, unspecified; E11.65 Type 2 diabetes mellitus with hyperglycemia; E11.618 Type 2 diabetes mellitus with other diabetic arthropathy; Z89.511 Acquired absence of right leg below knee; Z68.38 Body mass index [BMI] 38.0-38.9, adult; Z99.2 Dependence on renal dialysis; Z88.0 Allergy status to penicillin; Z79.4 Long term (current) use of insulin
CPT/HCPCS: 31500; 36415; 36416; 51702; 70450; 71045; 80048; 80053; 80306; 80307; 81003; 81015; 82010; 82140; 82550; 82553; 82805; 83605; 83690; 83735; 84100; 84145; 84146; 84484; 85025; 87040; 87086; 93005; 94002; 94003; 94760; 96365; 96366; 96375; 96376; J0696; J1644; J1815; J1953; J1956; J2060; J2704; J3010; J3490; S0028

== ENCOUNTER 2019-05-29 17:20 | Inpatient (IN) | payer MEDICARE ==
[2019-05-29 18:02] LABS: #Eosinphils 0.1 thou/uL (0.0-0.7); #Lymphocytes 1.8 thou/uL (1.20-3.40); #Monocytes 0.6 thou/uL (0.11-0.59); #Neutrophils 3.8 thou/uL (1.40-6.50); %Basophils 0.5 % (0.0-1.0); %Eosinophils 1.9 % (0.0-10.0); %Lymphocytes 28.3 % (21.0-51.0); %Monocytes 8.7 % (0.0-10.0); %Neutrophils 60.6 % (42.0-75.0); Hemoglobin 8.9 g/dL (14.0-18.0); Mean Corpuscular HGB CONC 32.5 g/dL (32.0-36.0); Mean Corpuscular Hemoglobin 31.5 pg (27.0-31.0); Mean Corpuscular Volume 96.8 fL (78.0-98.0); Mean Platelet Volume 8.4 fL (7.4-10.4); Platelet Count 125 thou/uL (130-400); RBC Distribution Width 13.9 % (11.5-14.5); Red Blood Cell (RBC) Count 2.83 mill/uL (4.70-6.10); White Blood Cell (WBC) Count 6.3 thou/uL (4.8-10.8)
[2019-05-29 18:33] LABS: Bilirubin, Total 0.5 mg/dL (0.2-1.2); Calcium 7.2 mg/dL (7.8-10.44); Chloride 96 mmol/L (98-107); Potassium 4.3 mmol/L (3.5-5.1); Sodium 132 mmol/L (136-145)
[2019-05-29 18:42] LABS: Actual Bicarbonate (HCO3a) 29.7 mEq/L (22-28); Analyzer IN Cardio ER; Base Excess (BEa) 3.9 mEq/L (-2.0 to +3.0); Calcium, Ionized 0.97 mmol/L (1.12-1.30); Carboxyhemoglobin (COHb) 0.5 gm% (0.0-3.0); Hemoglobin (Hb) 8.9 g/dL (14.0-18.0); Potassium - ABG Lab 4.24 mmol/L (3.70-5.30); pH, Arterial 7.38 (7.35-7.45)
[2019-05-29 18:49] LABS: ALT (SGPT) Less than 7 U/L (8-55); AST (SGOT) 7 U/L (5-34); Albumin 3.7 g/dL (3.5-5.0); Alkaline Phosphatase 141 U/L (40-110); Anion Gap 14 mmol/L (10-20); BUN (Urea Nitrogen) 37 mg/dL (8.4-25.7); Calc. Creatinine Clearance 0 mL/min (70-130); Carbon Dioxide 26 mmol/L (22-29); Estimated GFR-MDRD 9; Globulin 2.7 g/dL (2.4-3.5); Protein, Total 6.4 g/dL (6.0-8.3)
[2019-05-29 18:53] LABS: Puncture Site RRA
[2019-05-29 18:54] LABS: Glucose 638 mg/dL (70-105)
[2019-05-29 18:58] LABS: CKMB 2.1 ng/mL (0-6.6)
--- NOTE | 2019-05-29 19:11 | RAD ---
PORTABLE CHEST: 05/29/19 HISTORY: Mental status change. COMPARISON: 02/09/19. Cardiomegaly. Lungs appear clear but are suboptimally evaluated due to body habitus and soft tissue a ttenuation. IMPRESSION: No evidence of acute finding or interval change when compared to prior exam. POS: [facility]
[2019-05-29] MEDS ORDERED: Insulin Regular 300 UNITS/3 ML VIAL ONE (19:17)
[2019-05-29 20:01] LABS: Actual Bicarbonate (HCO3a) 23.7 mEq/L (22-28); Analyzer IN Cardio ER; Base Excess (BEa) -1.9 mEq/L (-2.0 to +3.0); CO2 Tension 43.8 mmHg (35.0-45.0); Calcium, Ionized 1.05 mmol/L (1.12-1.30); Carboxyhemoglobin (COHb) 0.3 gm% (0.0-3.0); Hemoglobin (Hb) 9.1 g/dL (14.0-18.0); O2 Tension (PaO2) 353.6 mmHg (80.0-100.0); Potassium - ABG Lab 3.47 mmol/L (3.70-5.30); pH, Arterial 7.35 (7.35-7.45)
[2019-05-29 20:03] LABS: Puncture Site RR
--- NOTE | 2019-05-29 20:11 | CT ---
CT OF BRAIN PERFORMED WITHOUT CONTRAST ENHANCEMENT: 05/29/19 HISTORY: Altered mental status. COMPARISON: A 02/08/19 exam. Old left cerebellar infarct is noted. There is generalized ventricular and sulcal prominence. Decreas ed attenuation of the periventricular white matter is consistent with some chronic white matter vega e. No signs of intracerebral hemorrhage or extra-axial fluid collection. IMPRESSION: No acute intracranial abnormalities. Chronic white matter change and old left cerebellar infarct note d. POS: [facility]
--- NOTE | 2019-05-29 20:34 | PDOC.HHP ---
Hospitalist HPI - History of Present Illness seizure History of Present Illness: Patient is a 58 year old male with PMH ESRD on MWF HD, seizure disorder, T2DM, PVD, R BKA, history of CVA w/ L sided deficits who presents for 5 minute seizure episode. Family reported history of seizures and 5 min sz with post ictal confusion around 1700. Taken to ED and sugar was 638. Was previously on keppra but not on antiepileptic med at home I believe. Pateint was very drowsy and was unable to give good history, no family present, much of info from chart review. ED also found indeterminate troponin elevation, infectious workup negative as checked. Patient has ESRd w/ Dr Mulugeta, last HD Sunday with no issues and completed session. Pt family reports Hx of strokes that affected L side weakness. Pt family reports a blood clot present in neck. ED Course: VITAL SIGNS Snehal May 29, 2019 20:28 DENZEL Moreno Julia Pulse: 67 Resp: 18 Pain: 0 O2 sat: 100 on (3L Oxygen) Time: 05/29/2019 20:28. VITAL SIGNS SunMay 29, 2019 20:29 DENZEL Moreno Julia BP: 140/65 Time: 05/29/2019 20:29. Hospitalist ROS - Review of Systems ROS unobtainable: due to mental status - Medication Medications: sevelamer carbonate SunMay 29, 2019 17:57 DENZEL Moreno Julia TABLET : Strength - 800 mg : ORAL Patient Dose: 800 mg Oral.unk schedule. Velphoro SunMay 29, 2019 17:57 DENZEL Moreno Julia TABLET, CHEWABLE : Strength - 500 mg iron : ORAL Patient Dose: 500 mg Oral.chew or crush unk schedule. aspirin oral SunMay 29, 2019 17:57 DENZEL Moreno Julia TABLET, DELAYED RELEASE (ENTERIC COATED) : Strength - 81 mg : ORAL Patient Dose: 81 mg Oral once a day. FLUoxetine SunMay 29, 2019 17:57 DENZEL Moreno Julia CAPSULE : Strength - 20 mg : ORAL Patient Dose: 20 mg Oral once a day. cloNIDine SunMay 29, 2019 17:57 DENZEL Moreno Julia patch weekly : Strength - 0.1 mg/24 hour : TRANSDERMAL Patient Dose: unk mg Oral once a day. Levemir Flexpen SunMay 29, 2019 17:58 DENZEL Moreno Julia insulin pen : Strength - 100 unit/mL (3 mL) : SUBCUTANEOUS Patient Dose: 35 units Subcutaneous once a day (at bedtime). Lantus U-100 Insulin [facility] May 29, 2019 17:58 DENZEL Moreno Julia cartridge : Strength - 100 unit/mL : SUBCUTANEOUS Patient Dose: As Needed. unk sz med Snehal May 29, 2019 20:38 DENZEL Moreno Julia Hospitalist History - Past Medical History Other Medical History: ESRD on MWF HD seizure disorder T2DM PVD R BKA history of CVA w/ L sided deficits - Past Surgical History Other Surgical History: BKA - Family History Family History: reports: no pertinent history - Social History Smoking Status: Former smoker Alcohol: reports: None Drugs: reports: none - Exam General - other findings: altered mental status, groggy, no acute distress Eye: PERRL, anicteric sclera ENT: normocephalic atraumatic, no oropharyngeal lesions, moist mucosa Neck: supple, symmetric, no JVD, no thyromegaly, no lymphadenopathy, no carotid bruit Heart: RRR, no murmur, no gallops, no rubs, normal peripheral pulses Respiratory: CTAB, no wheezes, no rales, no ronchi, normal chest expansion, no tachypnea, normal percussion Gastrointestinal: soft, non-tender, non-distended, normal bowel sounds, no palpable masses, no hepatomegaly, no splenomegaly, no bruit Extremities: no cyanosis, no clubbing, no edema Skin: normal turgor, no lesions, no rashes Neurological: cranial nerve grossly intact, normal sensation to touch, no weakness, no focal deficits, no new deficit Musculoskeletal: normal tone, normal strength, no muscle wasting Psychiatric: lethargic Hospitalist Results - Labs Result Diagrams: 05/30/19 06:27 05/30/19 06:27 Lab results: WBC 6.3 thou/uL (4.8-10.8) 05/29/19 17:52 Hgb 8.9 g/dL (14.0-18.0) L 05/29/19 17:52 Hct 27.4 % (42.0-52.0) L 05/29/19 17:52 MCV 96.8 fL (78.0-98.0) 05/29/19 17:52 Plt Count 125 thou/uL (130-400) L 05/29/19 17:52 Neutrophils % 60.6 % (42.0-75.0) 05/29/19 17:52 ABG pH 7.35 (7.35-7.45) 05/29/19 19:57 ABG pCO2 43.8 mmHg (35.0-45.0) 05/29/19 19:57 ABG pO2 353.6 mmHg (80.0-100.0) H 05/29/19 19:57 Sodium 132 mmol/L (136-145) L 05/29/19 17:52 Potassium 4.3 mmol/L (3.5-5.1) 05/29/19 17:52 Chloride 96 mmol/L (98-107) L 05/29/19 17:52 Carbon Dioxide 26 mmol/L (22-29) 05/29/19 17:52 BUN 37 mg/dL (8.4-25.7) H 05/29/19 17:52 Creatinine 6.27 mg/dL (0.7-1.3) H 05/29/19 17:52 Glucose 638 mg/dL (70-105) H* 05/29/19 17:52 Lactic Acid 1.6 mmol/L (0.5-2.2) 05/29/19 17:52 Calcium 7.2 mg/dL (7.8-10.44) L 05/29/19 17:52 Total Bilirubin 0.5 mg/dL (0.2-1.2) 05/29/19 17:52 AST 7 U/L (5-34) 05/29/19 17:52 ALT Less than 7 U/L (8-55) L 05/29/19 17:52 Alkaline Phosphatase 141 U/L (40-110) H 05/29/19 17:52 CK-MB (CK-2) 2.1 ng/mL (0-6.6) 05/29/19 17:52 Troponin I 0.038 ng/mL (< 0.028) H 05/29/19 17:52 B-Natriuretic Peptide 481.3 pg/mL (0-100) H 05/29/19 17:52 Serum Total Protein 6.4 g/dL (6.0-8.3) 05/29/19 17:52 Albumin 3.7 g/dL (3.5-5.0) 05/29/19 17:52 Hospitalist H&P A/P - Plan Plan: Patient is a 58 year old male with PMH ESRD on MWF HD, seizure disorder, T2DM, PVD, R BKA, history of CVA w/ L sided deficits who presents for 5 minute seizure episode. # seizure - radiation monitor, seizure precautions, keppra, PRN ativan ordered for future episodes, will order EEG and consult neurology as well, last seizure was in Jan 2019 - CT head without acute findings, but had chronic white matter changes and signs of old cerebellar infarct # DM w/ hyperglycemia - glucose was 600s on admission now 200s, SSI and long acting insulin will be ordered # elevated troponin - trend # hyponatremia - resolved, consult nephrology for HD # ESRD - consult Dr Dalal # history of HTN - will order PRN medications and continue home medications and monitor # altered mental status - suspect post ictal confusion, monitor for improvement
[2019-05-29] MEDS ORDERED: Lorazepam 2 MG/ML VIAL SLOW IVP PRN (20:36)
[2019-05-29] MEDS ORDERED: levETIRAcetam 500 MG/100 ML PREMIX BAG ONE (20:39)
[2019-05-29] MEDS ORDERED: levETIRAcetam In NaCl (Iso-Os) 1,000 MG in Premix Bag 1 BAG IVPB SCH (20:45)
[2019-05-29 21:27] LABS: Troponin I 0.032 ng/mL (< 0.028)
[2019-05-30 01:33] VITALS: BMI 40.1
[2019-05-30] MEDS ORDERED: Promethazine HCl 12.5 MG in Sodium Chloride 0.9% 50 ML IVPB PRN (02:23)
[2019-05-30] MEDS ORDERED: Dextrose 50% Abboject 50 ML SYRINGE SLOW IVP PRN (02:23)
[2019-05-30] MEDS ORDERED: cloNIDine 0.1 MG TAB PO PRN (02:23)
[2019-05-30] MEDS ORDERED: HumaLOG 300 UNITS/3 ML VIAL SC PRN (02:23)
[2019-05-30] MEDS ORDERED: Dextrose 5% in Water 1,000 ML IV PRN (02:23)
[2019-05-30] MEDS ORDERED: Acetaminophen 325 MG TAB PO PRN (02:23)
[2019-05-30] MEDS ORDERED: Senokot S 8.6-50 MG TAB PO PRN (02:23)
[2019-05-30] MEDS ORDERED: Ondansetron PF 4 MG/2 ML Vial IVP PRN (02:23)
[2019-05-30] MEDS ORDERED: hydrALAZINE 20 MG/ML VIAL SLOW IVP PRN (02:23)
[2019-05-30] MEDS ORDERED: HYDROcodone/Acetaminophen 5/325 mg Tablet PO PRN (02:23)
[2019-05-30] MEDS ORDERED: Bisacodyl 5 MG TAB PO PRN (02:23)
[2019-05-30] MEDS ORDERED: cloNIDine 0.1mg/24 Hour PATCH TD SCH (03:00)
[2019-05-30 06:43] LABS: #Eosinphils 0.1 thou/uL (0.0-0.7); #Monocytes 0.5 thou/uL (0.11-0.59); #Neutrophils 3.9 thou/uL (1.40-6.50); %Basophils 0.4 % (0.0-1.0); %Lymphocytes 30.7 % (21.0-51.0); %Monocytes 7.3 % (0.0-10.0); %Neutrophils 59.6 % (42.0-75.0); Hemoglobin 8.8 g/dL (14.0-18.0); Mean Corpuscular HGB CONC 32.5 g/dL (32.0-36.0); Mean Corpuscular Hemoglobin 31.2 pg (27.0-31.0); Mean Corpuscular Volume 96.1 fL (78.0-98.0); Mean Platelet Volume 8.3 fL (7.4-10.4); Platelet Count 131 thou/uL (130-400); RBC Distribution Width 14.1 % (11.5-14.5); Red Blood Cell (RBC) Count 2.83 mill/uL (4.70-6.10); White Blood Cell (WBC) Count 6.5 thou/uL (4.8-10.8)
[2019-05-30 06:47] LABS: Hemoglobin A1c 11.9 % (4.0-6.0)
[2019-05-30 07:02] LABS: Anion Gap 11 mmol/L (10-20); BUN (Urea Nitrogen) 38 mg/dL (8.4-25.7); Calc. Creatinine Clearance 20 mL/min (70-130); Calcium 7.3 mg/dL (7.8-10.44); Carbon Dioxide 27 mmol/L (22-29); Chloride 102 mmol/L (98-107); Estimated GFR-MDRD 9; Glucose 169 mg/dL (70-105); Magnesium 1.9 mg/dL (1.6-2.6); Phosphorus 5.5 mg/dL (2.3-4.7); Potassium 4.3 mmol/L (3.5-5.1); Sodium 136 mmol/L (136-145)
[2019-05-30 07:06] LABS: Troponin I 0.023 ng/mL (< 0.028)
[2019-05-30] MEDS ORDERED: Sevelamer Carbonate 800 MG TAB PO SCH (08:00)
[2019-05-30] MEDS ORDERED: Aspirin 81 mg Enteric Coated Tablet PO SCH (09:00)
[2019-05-30] MEDS ORDERED: Polyethylene Glycol 3350 17 GM Packet PO SCH (09:00)
[2019-05-30] MEDS ORDERED: FLUoxetine HCl 20 MG CAP PO SCH (09:00)
[2019-05-30] MEDS ORDERED: Epoetin (ESRD) 20,000 UNITS/ML SC SCH (09:45)
--- NOTE | 2019-05-30 09:58 | PDOC.HOSPP ---
- Subjective Encounter Date: 05/30/19 Encounter Time: 09:56 Subjective: Pt feeling better. He only remembers a little bit of yesterday - Objective Vital Signs & Weight: Vital Signs (12 hours) Temp Pulse Resp BP Pulse Ox 05/30/19 07:57 98.1 F 68 16 143/71 H 97 05/30/19 05:00 97.5 F L 64 16 132/75 100 05/30/19 00:00 97.9 F 59 L 16 134/68 99 Weight Weight 116.318 kg Result Diagrams: 05/30/19 06:27 05/30/19 06:27 Additional Labs: Accuchecks 05/30/19 05/29/19 05/29/19 06:07 23:21 22:31 POC Glucose 188 H 164 H 160 H 05/29/19 05/29/19 20:34 17:47 POC Glucose 288 H Greater than 550 H* - Exam General Appearance: awake alert ENT: normocephalic atraumatic Neck: supple, symmetric, no JVD, no thyromegaly, no lymphadenopathy, no carotid bruit Heart: RRR, no murmur, no gallops, no rubs Respiratory: CTAB, no wheezes, no rales, no ronchi Gastrointestinal: soft, non-tender, non-distended, normal bowel sounds, no palpable masses, no hepatomegaly, no splenomegaly, no bruit Extremities: 1+ LE edema (edema due to foot drop brace) Extremities - other findings: RLE BKA with prosthesis. Left foot-drop brace. Skin: no lesions, no rashes Neurological: no focal deficits Psychiatric: normal affect, normal behavior, A&O x 3 Hosp A/P (1) Recurrent seizures Code(s): G40.909 - EPILEPSY, UNSP, NOT INTRACTABLE, WITHOUT STATUS EPILEPTICUS Status: Acute (2) HTN (hypertension) Code(s): I10 - ESSENTIAL (PRIMARY) HYPERTENSION Status: Chronic Qualifiers: (3) DM2 (diabetes mellitus, type 2) Status: Chronic Qualifiers: (4) ESRD (end stage renal disease) on dialysis Code(s): N18.6 - END STAGE RENAL DISEASE; Z99.2 - DEPENDENCE ON RENAL DIALYSIS Status: Chronic - Plan Had 5 minute seizure yesterday. Blood sugar over 600. Pt said that it had never happened before. Has had 3 strokes since 2005. Can possibly go home today once he has consult with neurologist to make sure medications are managed. Elevated troponin but normal ECHO and stress test, so no intervention needed. Feels completely back to baseline. He isn't sure about his home meds, but he has a therapeutic Keppra level here. Awaiting Neurology consult. He has no signs of precipitating factors like infection. Blood sugars are normalized. Can likely discharge pending neuro consult.
--- NOTE | 2019-05-30 09:59 | PRG ---
DATE OF SERVICE: 05/30/2019 SUBJECTIVE: Mr. Hernandez is a 58-year-old male with ESRD and was admitted for mental status change. He was noted to have elevated blood sugar. He was managed supportively. This morning, he is much improved. He is mentating well. He denies any chest pain or shortness of breath. OBJECTIVE: GENERAL: He is awake, alert, comfortable, obese, not in distress. SKIN: Adequate turgor. HEENT: Pinkish conjunctivae. Anicteric sclerae. NECK: No neck mass. No carotid bruits. No JVD. CHEST: No deformities. LUNGS: Clear breath sounds. No wheezing. No crackles. HEART: Normal sinus rhythm. No murmur. No gallops. No rubs. ABDOMEN: Globular. Soft. Nontender. No masses. EXTREMITIES: Status post right BKA. VITAL SIGNS: Blood pressure is noted at 143/71, heart rate 68, respiratory rate 16, temperature 98.1, and pulse ox 97%. MEDICATIONS: Medications of May 30, 2019, were reviewed. LABORATORY DATA: Laboratories of May 30, 2019; white count 6.5, hemoglobin 8.8, sodium 136, potassium 4.3, chloride 102, carbon dioxide 27, BUN 38, creatinine 6.47, glucose 169, calcium 7.3, phosphorus 5.5. ASSESSMENT AND PLAN: 1. End-stage renal disease, stable. We will continue current Sunday, Sunday, and Sunday hemodialysis. Fluid removal as tolerated by the patient. 2. Anemia. We will initiate Epogen at 7500 units subcu every week. 3. Type 2 diabetes mellitus. We will adjust the insulin regimen. Please note that the patient's hemoglobin A1c is noted at 11.9. We may need to encourage patient to follow up with his PCP for further diabetes control. 4. Mild hyperphosphatemia. We will resume the patient's phosphate binders or adjust as needed. The plan is to increase his sevelamer 800 mg from one tablet t.i.d. to two tablets t.i.d. 5. Agree with current management. Job ID: [id number]
[2019-05-30] MEDS: levETIRAcetam 500 MG TAB PO SCH ×2 (10:23→20:58)
[2019-05-30] MEDS: Heparin 5,000 UNITS/ML VIAL SC SCH ×3 (11:52→20:58)
[2019-05-30] MEDS ORDERED: EPOETIN ALFA-EPBX (ESRD) 4,000 UNIT/ML VIAL SC SCH (12:00)
--- NOTE | 2019-05-30 12:01 | CON ---
DATE OF CONSULTATION: 05/30/2019 CONSULTING SERVICE: Hospitalist Service. IMPRESSION: 1. Breakthrough seizure. 2. History of left cerebellar stroke with residual dysmetria on the left. 3. Diabetes with poor control. 4. Peripheral vascular disease. 5. End-stage renal disease. PLAN: Increase Keppra to 1000 mg twice a day. HISTORY OF PRESENT ILLNESS: Mr. Hernandez is a 58-year-old man, who came in after having a seizure at home. He reports his last seizure was about 2 months ago. He started having seizures a little more than a year ago. He has past history of prior stroke damage with residual dysmetria and ataxia. He was sitting on his bed when he started to feel strangely. He did not awake until he was at the hospital. He had a CT of the brain, which did not show any acute changes. His blood sugar was 648. His Keppra level was 6.4. He is back to his baseline now. PAST MEDICAL HISTORY: As listed above. ALLERGIES: PENICILLIN, PIPERACILLIN/TAZOBACTAM. SOCIAL HISTORY: Unremarkable. FAMILY HISTORY: Unremarkable. REVIEW OF SYSTEMS: Ten-system review of systems is otherwise negative. PHYSICAL EXAMINATION: GENERAL: He is an overweight middle-aged man, lying in bed, in no acute distress. VITAL SIGNS: Blood pressure 143/71, pulse 68, respirations 16, and temperature 98.1. HEENT: Pupils are equal and reactive. Conjunctivae are clear. Oropharynx clear. NECK: Supple. No lymphadenopathy. EXTREMITIES: There is a right BKA. There is edema present in the left leg. NEUROLOGIC: He is alert and appropriate. His speech is fluent and clear. Cranial nerves appear to be intact. Motor exam showed antigravity strength in all 4 extremities. There was dysmetria on [id number] testing on the left side. Sensation was intact. Gait was not tested at this time. LABORATORY DATA: EKG shows normal sinus rhythm. SUMMARY: This is a middle-age man with several ongoing medical problems. He presented with a breakthrough seizure and a blood sugar of over 600. He reports being compliant with his Keppra. His level was on the low end of the spectrum. I would increase his dose and see how he responds to it. Job ID: [id number]
[2019-05-30 12:08] VITALS: BP 150/67; TEMP 98.2
[2019-05-30] MEDS: Sevelamer Carbonate 800 MG TAB PO SCH ×2 (13:09→19:12)
--- NOTE | 2019-05-30 19:35 | DIS ---
DATE OF ADMISSION: 05/29/2019 DATE OF DISCHARGE: 05/30/2019 DISCHARGE DIAGNOSES: 1. Breakthrough seizure. 2. History of seizure disorder. 3. End-stage renal disease. 4. Anemia of chronic renal disease. 5. Diabetes mellitus. 6. Indeterminate troponins consistent with the patient's baseline and renal disease. HISTORY OF PRESENT ILLNESS: This patient is a 58-year-old male with history of known seizure disorder and takes Keppra on a regular basis. He believes he has been compliant with that, although his memory is sketchy sometimes because of history of strokes. The patient had a prolonged seizure about 5 minutes at home, was brought to the hospital by his family. He was in a postictal phase. Labs revealed indeterminate troponins, but otherwise only his baseline anemia. He recovered fully, was back to his normal mental state. He was seen by Neurology, felt the patient would benefit from increasing his Keppra dose to 1000 mg a day and that his Keppra level was just over 6, which was in the very low therapeutic range. With that, the patient was felt to be stable for discharge to home for outpatient followup. PHYSICAL EXAMINATION: VITAL SIGNS: At the time of discharge, temperature is 98.2, pulse 72, respirations 18, O2 saturation 95% on room air, BP was 150/67. GENERAL: He is awake and alert. HEART: Regular rate and rhythm. LUNGS: Clear. ABDOMEN: Benign. EXTREMITIES: Right lower extremity prosthesis. Left lower extremity has a foot drop brace with some 1+ pitting edema distal to the brace strap. DISPOSITION: The patient is discharged to home. He will continue his usual home medications with the exception of increasing his Keppra to 1000 mg p.o. b.i.d. He will be on a renal diabetic diet. His activity is as tolerated. He should follow up with his primary care physician, . He can return to the hospital at anytime should he have the need to do so. Job ID: [id number]
--- NOTE | 2019-05-30 20:27 | CON ---
DATE OF CONSULTATION: 05/30/2019 CHIEF COMPLAINT: Seizures. HISTORY OF PRESENT ILLNESS: The patient is a 58-year-old man who comes to the hospital with a witnessed generalized tonic-clonic seizure. He is known to have seizure disorder and the patient reports he has been on medication, he does not remember which one. He has preexisting left-sided weakness following a prior stroke. He is also diabetic. He was brought in with hyperglycemia with significant elevation of his blood glucose into 638 at this time, and he had a 5-minute seizure. The patient is now back to baseline. PREVIOUS MEDICAL HISTORY: End-stage renal disease, seizure disorder, type 2 diabetes, peripheral vascular disease, right BKA with prosthesis, and history of CVA with left-sided residual weakness. PAST SURGICAL HISTORY: Below-knee amputation on the right side. FAMILY HISTORY: Mother from Munday's disease at 76. Grandmother and aunts and cousins on the maternal side of the family have Munday's. His brother also of Munday's at age 50. His father had stroke. His sister has diabetes and another twin brother also has diabetes. REVIEW OF SYSTEMS: PULMONARY: Negative for shortness of breath. GI: Negative for nausea, vomiting, or diarrhea. DERMATOLOGIC: Negative for any skin lesion. OPHTHALMOLOGIC: Negative for vision symptoms. ENT: Negative for any swallowing problems or hearing deficits. NEUROLOGIC: Positive for seizure disorder and pre-existing left-sided weakness. LABORATORY WORKUP: White count 6.5, hemoglobin 8.8, hematocrit 27.2, platelet count 131. Chemistry; sodium 136, potassium 4.3, chloride 102, bicarb 27, BUN 38, creatinine 6.47, glucose 169, and his initial admission glucose was 638. Keppra level was 6.4, beta hydroxybutyrate 0.05. CT of the head was negative for any acute event and he did have chronic white matter changes and old left cerebellar infarct and we were consulted for the seizure. I did request an MRI of the brain on this patient. PHYSICAL EXAMINATION: VITAL SIGNS: Temperature 98.2, pulse 72, respiratory rate 18, O2 saturations 95, blood pressure 150/67. GENERAL APPEARANCE: Well-built, well-nourished man who is slightly obese. CHEST: Clear vesicular breathing. CARDIOVASCULAR: S1 and S2 heard. No murmurs. ABDOMEN: Soft, nontender. No organomegaly noted. NEUROLOGICAL: Higher intellectual functions normal. Cranial nerves 2 through 12, normal extraocular movements. Tongue midline. No atrophy noted. Normal sensation of face bilaterally. Normal hearing to finger rub bilaterally. Mild left facial droop was noted. Facial asymmetry was noted and left facial numbness and normal hearing. Normal elevation of palate. Motor examination, bulk normal, tone normal. Strength 5/5 on the right side. On the left side, his strength was 5-4 to 5-/5 and he also has left footdrop. His deep tendon reflexes were absent throughout. Cerebellar, mild incoordination on the left side. Sensory decreased on the left upper and lower extremity and face. IMPRESSION AND PLAN: The patient is a 58-year-old man with a pre-existing cerebrovascular accident with left-sided cerebellar event on CT scan. At this time, he still has left-sided weakness and suffered another seizure likely in the setting of hyperglycemia. I would like to go ahead and request an MRI to make sure we do not have another acute stroke here. I will follow up on results. For now, for seizure prophylaxis, continue Keppra at the current dose. Job ID: [id number]
[2019-05-30] MEDS ORDERED: Non-Formulary Item 1 EACH (Insulin Glargine,Hum.Rec.Anlog [Basaglar Kwikpen U-100] 20 UNI SQ SCH (21:00)
[2019-05-30] MEDS ORDERED: Insulin Glargine 20 UNITS in Pre-Filled Syringe 1 EACH SC SCH (21:00)
[2019-06-06] MEDS ORDERED: cloNIDine 0.1mg/24 Hour PATCH TD SCH (09:00)
== END 2019-05-30 21:14 | disposition home or self-care (01) | DRG 100 ==
LOC: ERS 17:20 → 2SE 20:50
PROVIDERS: ADMIT Internal Medicine; ATTEND Internal Medicine
PROC: 5A1D70Z Performance of Urinary Filtration, Intermittent, Less than 6 Hours Per Day (ICD-10-PCS; principal; 2019-05-29)
DX: G40.409 Other generalized epilepsy and epileptic syndromes, not intractable, without status epilepticus (principal); N18.6 End stage renal disease; I69.354 Hemiplegia and hemiparesis following cerebral infarction affecting left non-dominant side; E87.1 Hypo-osmolality and hyponatremia; R40.2132 Coma scale, eyes open, to sound, at arrival to emergency department; R40.2242 Coma scale, best verbal response, confused conversation, at arrival to emergency department; R40.2362 Coma scale, best motor response, obeys commands, at arrival to emergency department; E11.65 Type 2 diabetes mellitus with hyperglycemia; Z99.2 Dependence on renal dialysis; E11.22 Type 2 diabetes mellitus with diabetic chronic kidney disease; Z89.511 Acquired absence of right leg below knee; Z87.891 Personal history of nicotine dependence; E83.39 Other disorders of phosphorus metabolism; Z88.0 Allergy status to penicillin; Z88.1 Allergy status to other antibiotic agents; E11.51 Type 2 diabetes mellitus with diabetic peripheral angiopathy without gangrene; D63.1 Anemia in chronic kidney disease
CPT/HCPCS: 36415; 36416; 70450; 71045; 80048; 80053; 80177; 82010; 82553; 82805; 83036; 83605; 83735; 83880; 84100; 84484; 85025; 87040; 93005; 94760; 95816; 95819; J1644; J1815; J1953; Q5105

== ENCOUNTER 2019-06-01 09:36 | Inpatient (IN) | payer MEDICARE ==
[2019-06-01 10:10] LABS: #Eosinphils 0.1 thou/uL (0.0-0.7); #Lymphocytes 1.5 thou/uL (1.20-3.40); #Monocytes 0.5 thou/uL (0.11-0.59); #Neutrophils 5.1 thou/uL (1.40-6.50); %Basophils 0.6 % (0.0-1.0); %Eosinophils 1.6 % (0.0-10.0); %Lymphocytes 21.2 % (21.0-51.0); %Monocytes 6.7 % (0.0-10.0); %Neutrophils 69.9 % (42.0-75.0); Hemoglobin 9.8 g/dL (14.0-18.0); Mean Corpuscular HGB CONC 32.5 g/dL (32.0-36.0); Mean Corpuscular Hemoglobin 31.1 pg (27.0-31.0); Mean Corpuscular Volume 95.8 fL (78.0-98.0); Mean Platelet Volume 8.4 fL (7.4-10.4); Platelet Count 148 thou/uL (130-400); RBC Distribution Width 14.4 % (11.5-14.5); Red Blood Cell (RBC) Count 3.16 mill/uL (4.70-6.10); White Blood Cell (WBC) Count 7.3 thou/uL (4.8-10.8)
[2019-06-01 10:12] LABS: Base Excess-Venous 1.7 mmol/L (-2.0 to 3.0); Bicarbonate (HCO3v) 25.6 mmol/L (22.0-28.0); CO2 Tension (PvCO2) 36.7 mmHg (40.0-50.0); Calcium, Ionized 0.83 mmol/L (See Comments:); Chloride 99 mmol/L (98-107); Hemoglobin - Calc 10.5 g/dL (14.0-18.0); Potassium 4.8 mmol/L (3.5-5.1); Sodium 134 mmol/L (138-145); T. Carbon Dioxide 26.7 mmol/L (22.0-28.0); vO2 Saturation-calc 99.5 % (60.0-85.0)
--- NOTE | 2019-06-01 10:14 | RAD ---
RADIOGRAPH CHEST 1 VIEW: DATE: 06/01/2019 TIME: 10:02 AM HISTORY: 58-year-old male with hyperglycemia and chest pain COMPARISON: 05/29/2019 FINDINGS: Apparently new finding of diffusely prominent interstitial markings. This may have been present previ ously, but is now more evident because of differences in technique. Widening of the cardiomediastinal shadow, some of which is due to magnification and mediastinal lipomatosis. No pneum othorax. No consolidation. Right lateral costophrenic angle excluded from [id number]. IMPRESSION: Prominent interstitial markings.
[2019-06-01 10:22] LABS: Acetaminophen Less than 6.0 mcg/mL (10.0-30.0); Alcohol Less than 10 mg/dL (Less than 10); Salicylate Less than 8.0 mg/dL (15.0-30.0)
[2019-06-01 10:24] LABS: ALT (SGPT) Less than 7 U/L (8-55); AST (SGOT) 9 U/L (5-34); Albumin 3.7 g/dL (3.5-5.0); Alkaline Phosphatase 137 U/L (40-110); Anion Gap 17 mmol/L (10-20); BUN (Urea Nitrogen) 32 mg/dL (8.4-25.7); Bilirubin, Total 0.5 mg/dL (0.2-1.2); Calc. Creatinine Clearance 0 mL/min (70-130); Calcium 7.4 mg/dL (7.8-10.44); Carbon Dioxide 24 mmol/L (22-29); Chloride 97 mmol/L (98-107); Estimated GFR-MDRD 9; Globulin 3.1 g/dL (2.4-3.5); Glucose 496 mg/dL (70-105); Lipase 20 U/L (8-78); Potassium 4.8 mmol/L (3.5-5.1); Protein, Total 6.8 g/dL (6.0-8.3); Sodium 133 mmol/L (136-145)
[2019-06-01] MEDS ORDERED: Insulin Regular 300 UNITS/3 ML VIAL ONE (10:31)
--- NOTE | 2019-06-01 10:37 | CT ---
CT BRAIN NONCONTRAST: DATE: 06/01/2019 HISTORY: 58-year-old male with altered mental status. COMPARISON: 05/29/2019 FINDINGS: There is no evidence of acute intra-axial or extra-axial hemorrhage. There is no midline shift or any other mass effect. There is no extra-axial fluid collection. There is no evidence of obstructive hydrocephalus. Calvarium is intact. There is diffuse brain parenchymal volume loss. There are low att enuation areas in the white matter. These are nonspecific, but in a patient of this age, they are probably chronic ischemic white matter changes due to microvascular atherosclerosis. Moderate-sized r egion of encephalomalacia and gliosis of inferior portion of left cerebellar hemisphere. Strip of encephalomalacia and gliosis involving right thalamus, body of right caudate, and right periventricul ar white matter. Strip of gliosis in the right upper frontal lobe with tiny calcifications representing path of previous ventriculostomy catheter. The pablo hole has closed. No interval change overall. IMPRESSION: 1) No acute intracranial findings. 2) involutional changes and chronic ischemic white matter changes. 3) moderately large old infarction in left PICA (posterior-inferior cerebellar artery) territory. 4) old hemorrhagic insult involving right thalamus and right caudate. 5) no evidence of prior right ventriculostomy.
[2019-06-01] MEDS ORDERED: Lorazepam 2 MG/ML VIAL ONE (10:46)
[2019-06-01] MEDS ORDERED: levETIRAcetam 1000 MG/100 ML PREMIX BAG ONE (10:48)
[2019-06-01] MEDS ORDERED: levETIRAcetam 500 MG/100 ML PREMIX BAG ONE (10:48)
--- NOTE | 2019-06-01 10:56 | CT ---
CT ABDOMEN WITH CONTRAST CT PELVIS WITH CONTRAST: DATE: 06/01/2019 HISTORY: 58-year-old male with generalized abdominal pain, nausea, and vomiting. COMPARISON: 10/13/2017 TECHNIQUE: IV injection of iodinated contrast media: administered. Oral contrast media:Not administered FINDINGS: Kidneys are bilaterally somewhat small. No hydronephrosis or pyelonephritis. Cholecystectomy clips in gallbladder fossa. No major pathology of liver, abdominal aorta, adrenals, or spleen. Atrophic heterogeneously fatty replaced pancreas. No signs of acute pancreatitis. No small bowel dilation, ascites, or pneumoperitoneum. No colonic diverticulitis. Diverticula at ascending, and transverse colon. No abscess in abdominal cavity or pelvic cavity. Minimal mural thickening of urinary bladder, nonspecific. Mild edema in subcutaneous fat. New small bilateral pleural effusions. This is the only interval change. IMPRESSION: 1. New small bilateral pleural effusions. 2. No acute findings within abdominal cavity or pelvic cavity. 3. Evidence of chronic renal insufficiency. 4. Status post cholecystectomy.
--- NOTE | 2019-06-01 11:21 | CT ---
CT ANGIOGRAM NECK WITH CONTRAST CT ANGIOGRAM BRAIN WITH CONTRAST: DATE: 06/01/2019 HISTORY: 58-year-old male with acute change in altered mental status which occurred since the CT of the brain that was performed approximately 30 minutes ago. TECHNIQUE: After IV contrast injection, arterial bolus chasing technique scan performed from AP window to vertex of head. Coronal and sagittal 3-D MIP reconstructions. FINDINGS: Atherosclerotic calcification of bilateral carotid siphons. No occlusion, high-grade stenosis, or thr ombosis of M1 segments of bilateral middle cerebral arteries. Anterior communicating artery patent. Normal A2 segments of bilateral anterior cerebral arteries. Robust left A1 segment. Absent or diminut mila right A1 segment. No high-grade stenosis or occlusion of intracranial vertebrals, basilar, and bilateral posterior cerebrals. Patent left posterior communicating artery. Diminutive A1 segment of l eft posterior cerebral artery. Proximal portions of bilateral superior cerebellar arteries are patent. No dural venous sinus thrombosis. Old brain insults as previously described 30 minutes ago. N o new findings in the brain CT. Multifocal atherosclerotic calcification, including mild involvement of bilateral proximal internal c arotid arteries, origins of bilateral vertebral arteries and subclavian arteries, and origins of bilateral common carotid arteries. Bovine common origin of left common carotid with innominate artery. Prominent interstitial markings in the bilateral upper lung zones. No high-grade stenosis of brachiocephalic, left subclavian, right common carotid, left common carotid , right internal carotid, left internal carotid, or proximal portion of right subclavian. Origins of bilateral vertebral arteries very difficult to evaluate. Codominant bilateral vertebrals. No severe stenosis identified in mid and upper cervical portions of vertebral arteries. IMPRESSION: 1. No M1 segment middle cerebral artery thrombus or occlusion. 2. Atherosclerosis of major arteries. 3. Origins of bilateral vertebral arteries very poorly visualized. 4. Otherwise no hemodynamically significant stenosis identified.
[2019-06-01] MEDS ORDERED: HUMULIN R 100 UNITS in Sodium Chloride 0.9% 100 ML IVPB SCH (11:30)
[2019-06-01] MEDS ORDERED: niCARdipine 25 MG in Sodium Chloride 0.9% 250 ML 250 ML IVPB SCH (11:30)
[2019-06-01] MEDS ORDERED: levETIRAcetam In NaCl (Iso-Os) 1,500 MG in Premix Bag 1 BAG IVPB SCH (11:45)
[2019-06-01 12:31] LABS: CKMB 1.6 ng/mL (0-6.6)
[2019-06-01 13:31] LABS: Troponin I 0.033 ng/mL (< 0.028)
[2019-06-01] MEDS ORDERED: Iopamidol-370 76% 500 ML 1 ML ONE ×2 (15:15→15:16)
[2019-06-01 16:24] VITALS: BMI 38.5
[2019-06-01] MEDS ORDERED: Dextrose 5% in Water 1,000 ML IV PRN (18:03)
[2019-06-01] MEDS ORDERED: Acetaminophen 500 MG TAB PO PRN (18:03)
[2019-06-01] MEDS ORDERED: hydrALAZINE 20 MG/ML VIAL SLOW IVP PRN (18:03)
[2019-06-01] MEDS ORDERED: Ondansetron ODT 4 MG TAB PO PRN (18:03)
[2019-06-01] MEDS ORDERED: Labetalol HCl 100 MG/20 ML VIAL SLOW IVP PRN (18:03)
[2019-06-01] MEDS ORDERED: Dextrose 50% Abboject 50 ML SYRINGE SLOW IVP PRN (18:03)
[2019-06-01] MEDS ORDERED: HumaLOG 300 UNITS/3 ML VIAL SC PRN (18:03)
[2019-06-01] MEDS ORDERED: Ondansetron PF 4 MG/2 ML Vial IVP PRN (18:03)
[2019-06-01] MEDS: levETIRAcetam 500 MG TAB PO SCH (23:02)
[2019-06-01] MEDS: cloNIDine 0.1 MG TAB PO SCH (23:03)
[2019-06-01] MEDS: Sevelamer Carbonate 800 MG TAB PO SCH (23:03)
--- NOTE | 2019-06-01 23:45 | HP ---
PRIMARY CARE PROVIDER: Dr. Elsa Alston at [facility] CHIEF COMPLAINT: Altered mental status and seizures. HISTORY OF PRESENT ILLNESS: This is a 58-year-old male with a known history of end-stage renal disease, on hemodialysis Sunday, Sunday, and Sunday, and known seizure disorder on chronic Keppra in addition to advanced diabetes mellitus type 2 with end-stage renal disease and peripheral vascular disease. The patient was noted by family members with somnolence and altered mental status at home in the tooth clerk hours after eating breakfast. The and granddaughter attempted to arouse the patient, however, he became slumped over in his chair and appeared to not be breathing. EMS personnel were called at which point the patient was transported to the emergency room with initial glucose reported at 522. The patient was alert and oriented x2 upon arrival in the emergency room at which point the patient underwent evaluation for potential encephalopathy. Due to the patient's unresponsiveness in the emergency room and developing seizure activity, the patient received Keppra 1500 mg IV push in the emergency room. The patient underwent CT imaging of the brain showing no acute process. Workup confirmed end-stage renal disease; however, the patient did not appear grossly volume overloaded. The patient was also noted with hypertensive urgency, and initiated on a Cardene infusion. Due to the hyperglycemia, the patient was also initiated on insulin infusion after an initial Humulin R 10 units subcutaneously x1. The patient was transferred to the Critical Care Unit for further evaluation. PAST MEDICAL HISTORY: 1. Seizure disorder on Keppra. 2. Diabetes mellitus type 2 with end-stage renal disease and advanced peripheral vascular disease. 3. Hyperlipidemia. 4. Morbid obesity. 5. Hypertension. 6. End-stage renal disease with hemodialysis Sunday, Sunday, and Sunday. 7. History of CVA with residual left-sided weakness. PAST SURGICAL HISTORY: 1. Status post right bwukl-[id number]-[id number] amputation. 2. Status post AV fistula placement. 3. Status post cholecystectomy. 4. Status post tonsillectomy. 5. Status post left 3rd toe amputation. 6. Status post carpal tunnel release. CURRENT MEDICATIONS: 1. Keppra 1000 mg p.o. b.i.d. 2. Enteric-coated aspirin 81 mg p.o. daily. 3. Sucroferric oxyhydroxide 500 mg p.o. b.i.d. 4. Renvela 800 mg p.o. t.i.d. 5. Glargine insulin 35 units subcutaneously at bedtime. 6. Prozac 20 mg p.o. daily. 7. Clonidine 0.1 mg p.o. b.i.d. 8. Vitamin D3 of 2000 units p.o. daily. ALLERGIES: TO PENICILLIN. FAMILY HISTORY: Positive for hypertension, coronary artery disease and diabetes mellitus. SOCIAL HISTORY: Resides in [place], [place]. Disabled. Accompanied by his and granddaughter in the hospital. No current alcohol, tobacco, or illicit drug use. Remote tobacco use. REVIEW OF SYSTEMS: CONSTITUTIONAL: Negative for weight loss or gain, ability to conduct usual activities. SKIN: Negative for rash, itching. EYES: Negative for double vision, pain. ENT/MOUTH: Negative for nose bleeding, neck stiffness, pain, tenderness. CARDIOVASCULAR: Negative for palpitations, dyspnea on exertion, orthopnea. RESPIRATORY: Negative for shortness of breath, wheezing, cough, hemoptysis, fever or night sweats. GASTROINTESTINAL: Negative for poor appetite, abdominal pain, heartburn, nausea, vomiting, constipation, or diarrhea. GENITOURINARY: Negative for urgency, frequency, dysuria, nocturia. MUSCULOSKELETAL: Negative for pain, swelling. NEUROLOGIC/PSYCHIATRIC: Negative for anxiety, depression. ALLERGY/IMMUNOLOGIC: Negative for skin rash, bleeding tendency. Otherwise negative except as stated per HPI. PHYSICAL EXAMINATION: VITAL SIGNS: On admission, blood pressure 203/91, pulse 79, respiratory rate 17, temperature 98.4 degrees Fahrenheit, O2 saturation 93% on room air. GENERAL APPEARANCE: This is a 58-year-old male, lethargic, opens eyes and nods to questions briefly, in no acute distress. HEENT: Pupils are equal, round, reactive to light and accommodation. Extraocular muscles are intact. Mild conjunctival injection noted. Nares patent. OP is clear. Teeth in poor repair. NECK: Supple. No cervical adenopathy. No thyromegaly. No carotid bruits. No JVD noted. Cervical spine with full active and passive range of motion. No meningeal signs noted. CHEST: Diminished breath sounds in the bases bilaterally. CARDIOVASCULAR: S1-S2 with distant heart sounds. No murmur, rub, or gallop appreciated. ABDOMEN: Obese with landmarks difficult to palpate due to the patient's body habitus. No rebound or guarding noted. EXTREMITIES: Warm and dry with fair turgor. Mild pitting edema to the proximal shins of the left lower extremity. Right [id number]-[id number] amputation noted with stump intact. Pulses diminished at the dorsalis pedis, posterior tibial on the left lower extremity. NEUROLOGIC: Cranial nerves 2 through 12 are grossly intact. Left upper extremity weakness noted, chronic. The patient not observed ambulatory during this exam. No seizure activity noted. PERTINENT LABORATORY AND X-RAY FINDINGS: Sodium 133, potassium 4.8, chloride 97, CO2 of 24, BUN 32, creatinine 6.52, estimated GFR of 9, glucose 496, calcium 7.4, alkaline phosphatase 137. Troponin I ranged between 0.033 to 0.040. Albumin 3.7. Lipase 20. CBC showed a white blood cell count of 7.3, hemoglobin 9.8, hematocrit 30.2, platelet count 148. Salicylate, acetaminophen, and plasma alcohol level negative. Beta hydroxybutyrate 0.10. Portable chest x-ray dated 06/01/2019 showed prominent interstitial markings bilaterally. CT of the abdomen and pelvis dated 06/01/2019, showed small bilateral pleural effusions. No acute intraabdominal process. CT of the brain without contrast dated 06/01/2019, showed no acute intracranial process. Chronic ischemic white matter changes noted. Moderately large old infarct in the left PICA distribution. Old hemorrhagic infarct in the right thalamus and right caudate. Telemetry monitoring shows sinus mechanism with heart rates in the 70s. ASSESSMENT AND PLAN: 1. Acute metabolic encephalopathy. Multifactorial process including end-stage renal disease, seizure disorder, and hypertensive urgency. See below for management. We will continue neurologic monitoring. General supportive management. 2. Hypertensive urgency. We will continue Cardene infusion and monitor serial blood pressures. Resume home blood pressure regimen once confirmed. Check 2D transthoracic echocardiogram in the a.m. 3. Recurrent seizures. Continue Keppra 1000 mg p.o. b.i.d. Ativan as needed for seizure activity. Check Keppra level in the a.m. check EEG in the a.m. 4. Hyperglycemia. No current evidence to suggest diabetic ketoacidosis. We will continue insulin infusion due to the patient's encephalopathy. Serial Accu-Cheks per protocol. 5. End-stage renal disease with hemodialysis. Consult Nephrology Service for initiation of next hemodialysis session. 6. Diabetes mellitus type 2 with end-stage renal disease and peripheral vascular disease. Continue insulin infusion. Insulin sliding scale when tolerating p.o. intake. Serial Accu-Cheks q.4 hours. 7. Prophylaxis. Sequential compression devices while in bed. Pepcid 20 mg p.o. b.i.d. General seizure precautions. PT evaluation in the a.m. 8. Code status is full. Surrogate medical decision maker is the patient's spouse. Job ID: [id number]
[2019-06-02 04:44] LABS: ALT (SGPT) Less than 7 U/L (8-55); AST (SGOT) 6 U/L (5-34); Albumin 3.4 g/dL (3.5-5.0); Alkaline Phosphatase 103 U/L (40-110); Anion Gap 14 mmol/L (10-20); BUN (Urea Nitrogen) 36 mg/dL (8.4-25.7); Bilirubin, Total 0.5 mg/dL (0.2-1.2); Calc. Creatinine Clearance 17 mL/min (70-130); Calcium 7.2 mg/dL (7.8-10.44); Carbon Dioxide 24 mmol/L (22-29); Chloride 101 mmol/L (98-107); Estimated GFR-MDRD 8; Globulin 2.8 g/dL (2.4-3.5); Glucose 165 mg/dL (70-105); Potassium 4.2 mmol/L (3.5-5.1); Protein, Total 6.2 g/dL (6.0-8.3); Sodium 135 mmol/L (136-145)
[2019-06-02 05:35] LABS: Band 9 % (5-11); Eosinophils 5 % (0-10); Hemoglobin 8.9 g/dL (14.0-18.0); Lymphocytes 15 % (21-51); MDiff Complete? YES; Mean Corpuscular HGB CONC 32.5 g/dL (32.0-36.0); Mean Corpuscular Hemoglobin 30.8 pg (27.0-31.0); Mean Corpuscular Volume 94.6 fL (78.0-98.0); Mean Platelet Volume 8.2 fL (7.4-10.4); Neutrophil 70 % (42-75); Platelet Count 153 thou/uL (130-400); RBC Distribution Width 14.5 % (11.5-14.5); White Blood Cell (WBC) Count 8.4 thou/uL (4.8-10.8)
--- NOTE | 2019-06-02 09:43 | PRG ---
DATE OF SERVICE: 06/02/2019 SUBJECTIVE: Mr. Hernandez is a 58-year-old male with ESRD - on hemodialysis and admitted for a seizure disorder. We are being consulted for his management of his ESRD. This morning, he is feeling better. He is undergoing an EEG. OBJECTIVE: VITAL SIGNS: Blood pressure is 142/49, heart rate 69, respiratory rate 15, O2 saturation 100%. GENERAL: The patient is awake, supine, comfortable, obese, and not in distress. SKIN: Adequate turgor. HEENT: Pale conjunctivae. Anicteric sclerae. No neck mass. No carotid bruits. No JVD. CHEST: No deformities. LUNGS: Clear breath sounds. No wheezing. No crackles. HEART: Normal sinus rhythm. No murmurs. No gallops. No rubs. ABDOMEN: Globular, soft, and nontender. No masses. EXTREMITIES: No edema. No deformities. MEDICATIONS: Medications of June 02, 2019, were reviewed. LABORATORY DATA: Laboratories of June 02, 2019: Showed white count 8.4, hemoglobin 8.9. Sodium 135, potassium 4.2, chloride 101, carbon dioxide 24, BUN 36, creatinine 7.44, and calcium 7.2. ASSESSMENT AND PLAN: 1. End-stage renal disease - we have scheduled the patient for his regular hemodialysis today. We will do a 4-hour hemodialysis with fluid removal only as tolerated. 2. Recurrent seizure disorder - currently restarting Keppra at 1000 mg p.o. b.i.d. EEG is being done. 3. Anemia. Restart back Epogen at 7500 units subcu q.week. I agree with current management. Job ID: [id number]
[2019-06-02] MEDS ORDERED: EPOETIN ALFA-EPBX (ESRD) 4,000 UNIT/ML VIAL SC SCH (09:45)
--- NOTE | 2019-06-02 09:54 | CON ---
DATE OF CONSULTATION: HISTORY OF PRESENT ILLNESS: Rene Hernandez is a 58-year-old gentleman, whose is at the bedside and gives adequate history. He was just recently discharged from the hospital with uncontrolled diabetes encephalopathy. Brought him back again to the hospital with a blood sugar of over 500, lethargic, mental status change. He was inappropriate. Extensive workup in the ER including a CT brain, CT angio, all have been otherwise unremarkable. He is undergoing EEG at this stage. He was discharged on 05/30 with a diagnosis of seizure disorder. states that he snores and is being having symptoms of being excessively sleepy now for a long period of time. His primary care doctor is at [facility]. PAST MEDICAL HISTORY: Otherwise end-stage renal disease, diabetes, encephalopathy, severe deconditioning, dialysis 3 times a week. Hypertension, CVA. PREVIOUS SURGERIES: Include right BK amputation, right wrist surgery. SOCIAL HISTORY: Previous substance abuse, cocaine. Smokes, no alcohol abuse. 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 ALLERGIES: PENICILLIN. HOME MEDICATIONS: 1. Keppra 1000. 2. Catapres 0.1. 3. Renvela 800. 4. Insulin. 5. Prozac 20. REVIEW OF SYSTEMS: Otherwise, unremarkable. PHYSICAL EXAMINATION: GENERAL: He is lying in bed, in no acute distress. VITAL SIGNS: His saturations are 94%, pulse 80, blood pressure 130/80. CHEST: Rhonchi without any wheezing. CARDIAC: Normal S1 and S2. No gallops. ABDOMEN: No masses. DIAGNOSTIC STUDIES: Chest x-ray shows no acute infiltrate, some cardiomegaly. His lab otherwise shows 8000 white count, hemoglobin and hematocrit are 8 and 27, and platelet count is normal. Creatinine 7.4. IMPRESSION: 1. Metabolic encephalopathy, history of seizure disorders. 2. End-stage renal disease. 3. Diabetes. 4. Probable sleep apnea. 5. Severe deconditioning. 6. Peripheral vascular disease. PLAN: Continue aggressive diabetic management. Continue Keppra. Outpatient sleep study. Supportive care, PT. When he is stable, he can be transferred out of the ICU. Pulmonary will follow while in the ICU. This is a 70-minute consultation note, 50% direct patient care. Job ID: [id number]
[2019-06-02] MEDS: Famotidine 20 MG TAB PO SCH (10:11)
[2019-06-02] MEDS: levETIRAcetam 500 MG TAB PO SCH ×2 (10:11→23:41)
[2019-06-02] MEDS: FLUoxetine HCl 20 MG CAP PO SCH (10:11)
[2019-06-02] MEDS: Aspirin 81 mg Enteric Coated Tablet PO SCH (10:12)
[2019-06-02] MEDS: cloNIDine 0.1 MG TAB PO SCH ×2 (10:12→23:42)
[2019-06-02] MEDS: Sevelamer Carbonate 800 MG TAB PO SCH ×3 (10:12→23:42)
[2019-06-02] MEDS ORDERED: Insulin Glargine 15 UNITS in Pre-Filled Syringe 1 EACH SC SCH (11:30)
--- NOTE | 2019-06-02 17:16 | PDOC.HOSPP ---
- Subjective Encounter Date: 06/02/19 Encounter Time: 17:10 Subjective: f/u for AMS, HTN urgency and recurrent seizures. Overall feeling ok and awaiting HD this pm. - Objective Vital Signs & Weight: Vital Signs (12 hours) Temp Pulse BP BP BP Pulse Ox 06/02/19 11:54 81 173/68 H 148/59 H 06/02/19 10:12 171/63 H 06/02/19 08:00 97.7 F 100 06/02/19 06:20 100 Weight Weight 245 lb 9.519 oz Most Recent Monitor Data Heart Rate from ECG 69 NIBP 144/57 NIBP BP-Mean 86 Respiration from ECG 16 SpO2 99 I&O: 06/01/19 06/02/19 06/03/19 06:59 06:59 06:59 Intake Total 929.5 120 Output Total 375 Balance 554.5 120 Result Diagrams: 06/02/19 04:10 06/02/19 04:10 Additional Labs: Accuchecks 06/02/19 06/02/19 06/02/19 16:34 11:23 08:47 POC Glucose 185 H 146 H 87 06/02/19 06/02/19 06/02/19 07:35 06:14 05:17 POC Glucose 117 H 147 H 156 H 06/02/19 06/02/19 06/02/19 03:48 02:34 00:59 POC Glucose 218 H 192 H 163 H 06/02/19 06/01/19 06/01/19 00:10 23:08 22:12 POC Glucose 149 H 140 H 131 H 06/01/19 06/01/19 06/01/19 21:05 20:00 18:01 POC Glucose 128 H 157 H 221 H Laboratory Tests 06/01/19 06/01/19 06/02/19 09:53 09:53 04:10 Hgb 9.8 L Levetiracetam 60.1 Plasma Alcohol Less than 10 Radiology Reviewed by me: Yes (Echo - EF 55-60%, + diast dysfxn) EKG Reviewed by me: Yes (Tele - SR) Hospitalist ROS - Medication Medications: Active Medications Generic Name Dose Route Start Last Admin Trade Name Freq PRN Reason Stop Dose Admin Aspirin 81 mg 06/02/19 09:00 06/02/19 10:12 Ecotrin PO 81 mg DAILY HERI Administration Cholecalciferol 2,000 units 06/02/19 09:00 06/02/19 10:16 Vitamin D3 PO 2,000 units DAILY HERI Administration Clonidine 0.1 mg 06/01/19 21:00 06/02/19 10:12 Catapres PO 0.1 mg BID HERI Administration Epoetin Luciano-epbx 7,500 unit 06/02/19 09:45 06/02/19 10:39 Retacrit SC 7,500 unit Q7D HERI Administration Famotidine 20 mg 06/02/19 09:00 06/02/19 10:11 Pepcid PO 20 mg DAILY HERI Administration Fluoxetine HCl 20 mg 06/02/19 09:00 06/02/19 10:11 Prozac PO 20 mg DAILY HERI Administration Nicardipine HCl 25 mg/ Sodium 260 mls @ 0 mls/hr 06/01/19 11:30 06/01/19 22: 46 Chloride IVPB 260 mls INF HERI Administration Protocol Titrate Levetiracetam 1,000 mg 06/01/19 21:00 06/02/19 10:11 Keppra PO 1,000 mg BID HERI Administration Sevelamer Carbonate 800 mg 06/01/19 21:00 06/02/19 10:12 Renvela PO 800 mg TID HERI Administration - Exam General Appearance: NAD, awake alert Eye: PERRL, anicteric sclera ENT: normocephalic atraumatic, no oropharyngeal lesions Neck: supple, symmetric, no JVD, no thyromegaly Heart: RRR, no murmur, no gallops, no rubs, normal peripheral pulses Respiratory: CTAB, no wheezes, no rales, no ronchi Gastrointestinal: soft, non-tender, non-distended, normal bowel sounds, no palpable masses Extremities: no edema Extremities - other findings: R BKA intact stump Skin: normal turgor Neurological: cranial nerve grossly intact, no new deficit Musculoskeletal: generalized weakness Psychiatric: A&O x 3 Hosp A/P (1) Encephalopathy acute Code(s): G93.40 - ENCEPHALOPATHY, UNSPECIFIED Status: Acute Plan: Likely multifactorial, continue mgmt for HTN, hyperglycemia and ESRD with HD (2) Hypertensive urgency Code(s): I16.0 - HYPERTENSIVE URGENCY Status: Acute Plan: Resolved, resume home BP regimen (3) Recurrent seizures Code(s): G40.909 - EPILEPSY, UNSP, NOT INTRACTABLE, WITHOUT STATUS EPILEPTICUS Status: Acute Plan: Continue Keppra 1000mg BID (4) ESRD (end stage renal disease) on dialysis Code(s): N18.6 - END STAGE RENAL DISEASE; Z99.2 - DEPENDENCE ON RENAL DIALYSIS Status: Chronic Plan: Continue HD per Renal service (5) DM2 (diabetes mellitus, type 2) Status: Chronic Qualifiers: Plan: Resume home insulin regimen, ISS, ADA - Plan plan discussed w/ family, PT/OT, social service director, out of bed/ambulate Stable currently HD per Renal service Resume home BP regimen Keppra 1000mg BID AM lab: BMP Likely home in am
[2019-06-02] MEDS: HumaLOG 300 UNITS/3 ML VIAL SC PRN (17:20)
[2019-06-02] MEDS: Insulin Glargine 15 UNITS in Pre-Filled Syringe SC SCH (23:41)
[2019-06-03] MEDS: HumaLOG 300 UNITS/3 ML VIAL SC PRN ×3 (05:24→16:28)
[2019-06-03] MEDS: Famotidine 20 MG TAB PO SCH (08:42)
[2019-06-03] MEDS: cloNIDine 0.1 MG TAB PO SCH (08:43)
[2019-06-03] MEDS: levETIRAcetam 500 MG TAB PO SCH ×2 (08:43→20:11)
[2019-06-03] MEDS: FLUoxetine HCl 20 MG CAP PO SCH (08:43)
[2019-06-03] MEDS: Sevelamer Carbonate 800 MG TAB PO SCH ×3 (08:43→20:12)
[2019-06-03] MEDS: Aspirin 81 mg Enteric Coated Tablet PO SCH (08:43)
--- NOTE | 2019-06-03 17:03 | PRG ---
DATE OF SERVICE: 06/03/2019 SUBJECTIVE: Mr. Hernandez is a 58-year-old male with ESRD and was admitted for recurrent seizure. Adjustment of the antiseizure medication has been made. We are following him up for his maintenance hemodialysis. This morning, he voices no new complaints. OBJECTIVE: VITAL SIGNS: Blood pressure 182/80, heart rate 68, respiratory rate 19, temperature 98.2, and pulse ox 98%. GENERAL: Noted to be awake, alert, comfortable, not in distress. SKIN: Adequate turgor. HEENT: He has a pinkish conjunctivae. Anicteric sclerae. NECK: No neck mass. No carotid bruits. No JVD. CHEST: No deformities. LUNGS: Clear breath sounds. HEART: Normal sinus rhythm. No murmur. No gallops. No rubs. ABDOMEN: Globular, soft, nontender. No masses. EXTREMITIES: No edema. No deformities. MEDICATIONS: Medications of June 03, 2019, reviewed. LABORATORY DATA: Laboratories of June 02, 2019; white count 8.4, hemoglobin 8.9. Sodium 135, potassium 4.2, chloride 101, carbon dioxide 24, BUN 36, creatinine 7.44, glucose 165, calcium 7.2, AST 6, ALT less than 7. ASSESSMENT AND PLAN: 1. End-stage renal disease, stable. We will continue current Sunday, Sunday, and Sunday hemodialysis. No indication for any emergent hemodialysis with this patient. 2. Anemia, continuing weekly Epogen. 3. Hypertension, not optimally controlled. Consider increasing clonidine to 0.2 mg tablet b.i.d. or simply adding losartan 25 mg tablet q.a.m. 4. Recurrent seizure, on antiseizure medications. Agree with current management. Job ID: [id number]
--- NOTE | 2019-06-03 19:11 | PDOC.HOSPP ---
- Subjective Encounter Date: 06/03/19 Encounter Time: 19:00 Subjective: f/u for HTN urgency, encephalopathy, seizure disorder. Feels better overall. BP trend improved. No current complaints. - Objective Vital Signs & Weight: Vital Signs (12 hours) Temp Pulse Resp BP Pulse Ox 06/03/19 15:28 98.2 F 68 19 182/80 H 98 06/03/19 12:00 98.2 F 67 18 159/73 H 95 06/03/19 08:00 95 06/03/19 07:30 98.6 F 70 16 142/63 H 95 Weight Weight 245 lb 9.519 oz Most Recent Monitor Data Heart Rate from ECG 73 NIBP 144/57 NIBP BP-Mean 86 Respiration from ECG 21 SpO2 100 I&O: 06/02/19 06/03/19 06/04/19 06:59 06:59 06:59 Intake Total 929.5 434.7 Output Total 375 Balance 554.5 434.7 Result Diagrams: 06/02/19 04:10 06/02/19 04:10 Additional Labs: Accuchecks 06/03/19 06/03/19 06/03/19 15:34 11:59 04:13 POC Glucose 207 H 248 H 285 H 06/02/19 23:43 POC Glucose 170 H Laboratory Tests 06/01/19 06/01/19 06/02/19 09:53 09:53 04:10 Hgb 9.8 L Levetiracetam 60.1 Plasma Alcohol Less than 10 Hospitalist ROS - Medication Medications: Active Medications Generic Name Dose Route Start Last Admin Trade Name Freq PRN Reason Stop Dose Admin Aspirin 81 mg 06/02/19 09:00 06/03/19 08:43 Ecotrin PO 81 mg DAILY HERI Administration Cholecalciferol 2,000 units 06/02/19 09:00 06/03/19 08:42 Vitamin D3 PO 2,000 units DAILY HERI Administration Clonidine 0.1 mg 06/01/19 21:00 06/03/19 08:43 Catapres PO 0.1 mg BID HERI Administration Epoetin Luciano-epbx 7,500 unit 06/02/19 09:45 06/02/19 10:39 Retacrit SC 7,500 unit Q7D HERI Administration Famotidine 20 mg 06/02/19 09:00 06/03/19 08:42 Pepcid PO 20 mg DAILY HERI Administration Fluoxetine HCl 20 mg 06/02/19 09:00 06/03/19 08:43 Prozac PO 20 mg DAILY HERI Administration Insulin Glargine 15 units/ 0.15 mls @ 0 mls/hr 06/02/19 21:00 06/02/19 23:41 Miscellaneous Medication SC 0.15 mls HS HERI Administration Insulin Human Lispro 0 units 06/01/19 18:03 06/03/19 16:28 Humalog SC 6 unit .AGGRESSIVE SLIDING PRN Administration Aggressive Correctional Scale Levetiracetam 1,000 mg 06/01/19 21:00 06/03/19 08:43 Keppra PO 1,000 mg BID HERI Administration Sevelamer Carbonate 800 mg 06/01/19 21:00 06/03/19 16:28 Renvela PO 800 mg TID HERI Administration - Exam General Appearance: NAD, awake alert Eye: PERRL, anicteric sclera ENT: normocephalic atraumatic, no oropharyngeal lesions Neck: supple, symmetric, no JVD, no thyromegaly Heart: RRR, no gallops, no rubs, normal peripheral pulses Respiratory: CTAB, no wheezes, no rales, no ronchi Gastrointestinal: soft, non-tender, non-distended, normal bowel sounds Extremities: no cyanosis, no clubbing, no edema Extremities - other findings: R BKA with prosthesis in place Skin: normal turgor Neurological: cranial nerve grossly intact, no new deficit Musculoskeletal: normal tone, normal strength Psychiatric: normal affect, A&O x 3 Hosp A/P (1) Encephalopathy acute Code(s): G93.40 - ENCEPHALOPATHY, UNSPECIFIED Status: Acute Plan: Multifactorial, resolved (2) Hypertensive urgency Code(s): I16.0 - HYPERTENSIVE URGENCY Status: Acute Plan: Resolved but BP trend labile, increase Clonidine 0.2mg BID (3) Recurrent seizures Code(s): G40.909 - EPILEPSY, UNSP, NOT INTRACTABLE, WITHOUT STATUS EPILEPTICUS Status: Acute Plan: Continue Keppra 1000mg BID (4) ESRD (end stage renal disease) on dialysis Code(s): N18.6 - END STAGE RENAL DISEASE; Z99.2 - DEPENDENCE ON RENAL DIALYSIS Status: Chronic Plan: HD M/W/F (5) DM2 (diabetes mellitus, type 2) Status: Chronic Qualifiers: Plan: Glucose trend improved, continue current regimen - Plan Stable currently HD per Renal service Resume home BP regimen Keppra 1000mg BID Likely home in am after HD
[2019-06-03] MEDS: Insulin Glargine 15 UNITS in Pre-Filled Syringe SC SCH (20:11)
[2019-06-03] MEDS: cloNIDine 0.2 MG TAB PO SCH (20:11)
[2019-06-04 00:01] VITALS: TEMP 98
--- NOTE | 2019-06-04 00:34 | PRG ---
DATE OF SERVICE: 06/03/2019 CONSULTING PHYSICIAN: Hospitalist Service. IMPRESSION: 1. Recurrent seizure. 2. Persistent hyperglycemia. PLAN: 1. Continue Keppra 1000 mg twice a day. 2. Office followup in two weeks for serum levels. HISTORY OF PRESENT ILLNESS: Mr. Hernandez was readmitted secondary to recurrent seizure. His blood sugar was over 400. He got a loading dose of Keppra in the emergency room. His followup level was 60. He has not had any further seizures since admission. He is without any other complaints. I would continue the current regimen of Keppra and we will see how this levels out at steady state. Job ID: [id number]
[2019-06-04] MEDS: HumaLOG 300 UNITS/3 ML VIAL SC PRN (05:53)
[2019-06-04] MEDS: Aspirin 81 mg Enteric Coated Tablet PO SCH (08:47)
[2019-06-04] MEDS: cloNIDine 0.2 MG TAB PO SCH (08:47)
[2019-06-04 08:48] VITALS: BP 161/63
[2019-06-04] MEDS: FLUoxetine HCl 20 MG CAP PO SCH (08:48)
[2019-06-04] MEDS: Famotidine 20 MG TAB PO SCH (08:48)
[2019-06-04] MEDS: levETIRAcetam 500 MG TAB PO SCH (08:49)
[2019-06-04] MEDS: Sevelamer Carbonate 800 MG TAB PO SCH (08:49)
[2019-06-04] MEDS ORDERED: Losartan 25 MG TAB PO SCH (09:00)
--- NOTE | 2019-06-04 09:12 | PRG ---
DATE OF SERVICE: 06/04/2019 SUBJECTIVE: Mr. Hernandez is a 58-year-old male with ESRD, admitted for recurrent seizure. He is currently undergoing hemodialysis. No new complaints. No chest pain or shortness of breath. OBJECTIVE: VITAL SIGNS: Blood pressure 125/68, heart rate 60, respiratory rate 20, temperature 98, and pulse ox 95%. GENERAL: Noted to be awake, alert, comfortable, not in distress. SKIN: Adequate turgor. HEENT: He has a pinkish conjunctivae. Anicteric sclerae. NECK: No neck mass. No carotid bruits. No JVD. CHEST: No deformities. LUNGS: Clear breath sounds. HEART: Normal sinus rhythm. No murmur. No gallops. No rubs. ABDOMEN: Globular, soft, and nontender. No masses. EXTREMITIES: No edema. No deformities. Status post right BKA. MEDICATIONS: Medications of June 04, 2019, was reviewed. LABORATORY DATA: Laboratories of June 02, 2019; hemoglobin 8.9. Blood sugar on June 04, 2019, 245. June 02, 2019; potassium 4.2, BUN 36, and creatinine 7.44. ASSESSMENT AND PLAN: 1. Recurrent seizure - on Keppra 1000 mg p.o. b.i.d. Neurology following. 2. End-stage renal disease, stable. Continue current hemodialysis regimen. Fluid removal only as tolerated. 3. Anemia, continuing weekly Epogen with the patient. Job ID: [id number]
--- NOTE | 2019-06-04 14:39 | EEG ---
Referring Physician: Christiano RIVERA EEG # [id number] TEST TYPE: ROUTINE PORTABLE INPATIENT REPORT: AN EEG USING THE INTERNATIONAL TEN-TWENTY SYSTEM OF ELECTRODE PLACEMENT WAS PERFORMED. The waking background is a 9 hertz alpha frequency. The patient remained awake. Photic stimulation was unremarkable. No epileptiform features were seen. IMPRESSION: THIS IS A NORMAL AWAKE EEG. Support Associate: [employer]: [email or web address] SINGH
--- NOTE | 2019-06-04 15:30 | DIS ---
DATE OF ADMISSION: 06/01/2019 DATE OF DISCHARGE: 06/04/2019 DISCHARGE DIAGNOSES: 1. Acute metabolic encephalopathy, multifactorial, improved and resolving. 2. Hypertensive urgency, resolved. 3. Recurrent seizures, stable. 4. End-stage renal disease, on hemodialysis. 5. Diabetes mellitus, type 2 with end-stage renal disease and peripheral neuropathy. CONSULTATIONS: 1. Dr. Dalal with Nephrology Service. 2. Dr. Steward with Neurology Service. 3. Dr. Anderson with Pulmonology/Critical Care Service. PERTINENT LABORATORY AND X-RAY FINDINGS: Creatinine ranged between 6.52 to 7.44. Troponin I ranged between 0.033 to 0.040. Glucose ranged between 165 to 522. Hemoglobin ranged between 8.9 to 9.8. Beta-hydroxybutyrate level 0.10. Portable chest x-ray dated 06/01/2019 showed prominent bilateral interstitial markings. CT of the abdomen and pelvis dated 06/01/2019, showed small bilateral pleural effusions. No acute intraabdominal process. CT of the brain without contrast dated 06/01/2019, showed no acute intracranial process. Chronic ischemic white matter changes noted. Old infarct in the left PICA distribution. Old hemorrhagic infarct of the right thalamus and right caudate. CT angiogram of the [place] dated 06/01/2019, showed no thrombus or occlusion. No significant stenosis identified. 2D transthoracic echocardiogram dated 06/02/2019, showed ejection fraction of 55% to 60% with grade 1/3 diastolic dysfunction. HOSPITAL COURSE: The patient was initially admitted to the Critical Care Unit after presenting with acute altered mentation and encephalopathy, multifactorial process. The patient also noted with recurrent seizures in the context of chronic seizure disorder. The patient was initially managed for hyperglycemia with initial glucose of 522, placed on insulin infusion and receiving Keppra 1500 mg IV push in the emergency room. The patient was given general pulmonary supportive management and care with overall improvement in mentation in the first 24 hours after admission. The patient received ongoing hemodialysis without prominent volume overload. The patient was resumed on his regular Keppra 1000 mg b.i.d. after evaluation and discussions with Neurology Service. The patient's hypertensive urgency was managed with initial Cardene infusion, transitioning the patient to increase the level of clonidine to 0.2 mg b.i.d. and the addition of losartan 25 mg daily. The patient clinically stabilized and was tolerating regular oral intake. Vital signs have remained stable and the patient at baseline function. I have examined the patient at the time of discharge and discussed followup instructions. The patient verbalized understanding and in agreement and ready for discharge on 06/04/2019. DISCHARGE MEDICATIONS: 1. Vitamin D3 of 2000 units p.o. daily. 2. Prozac 20 mg p.o. daily. 3. Glargine insulin 35 units subcutaneously at bedtime. 4. Renvela 800 mg p.o. t.i.d. 5. Velphoro 500 mg p.o. b.i.d. 6. Enteric-coated aspirin 81 mg p.o. daily. 7. Catapres 0.2 mg p.o. b.i.d. 8. Keppra 1000 mg p.o. b.i.d. 9. Cozaar 25 mg p.o. daily. FOLLOWUP: The patient followup with his primary care provider, Dr. Mariah Alston. The patient will follow up with Dr. aDlal with hemodialysis on Sunday, Sunday, and Sunday. CONDITION ON DISCHARGE: Stable. ACTIVITY: Ad-santi. DIET: ADA and heart healthy. CODE STATUS: Full. DISPOSITION: Home on 06/04/2019. TIME SPENT: Total time preparing and coordinating discharge, 31 minutes. Job ID: [id number]
== END 2019-06-04 15:26 | disposition home or self-care (01) | DRG 100 ==
LOC: ERS 09:36 → CCU 16:11 → T4-A 06-02 23:00
PROVIDERS: ADMIT Family Medicine; ATTEND Family Medicine
DX: G40.909 Epilepsy, unspecified, not intractable, without status epilepticus (principal); G93.41 Metabolic encephalopathy; N18.6 End stage renal disease; R40.2122 Coma scale, eyes open, to pain, at arrival to emergency department; I69.951 Hemiplegia and hemiparesis following unspecified cerebrovascular disease affecting right dominant side; I12.0 Hypertensive chronic kidney disease with stage 5 chronic kidney disease or end stage renal disease; I16.0 Hypertensive urgency; E11.22 Type 2 diabetes mellitus with diabetic chronic kidney disease; E11.42 Type 2 diabetes mellitus with diabetic polyneuropathy; E11.65 Type 2 diabetes mellitus with hyperglycemia; F17.210 Nicotine dependence, cigarettes, uncomplicated; F14.10 Cocaine abuse, uncomplicated; R29.700 NIHSS score 0; R40.2252 Coma scale, best verbal response, oriented, at arrival to emergency department; R40.2362 Coma scale, best motor response, obeys commands, at arrival to emergency department; Z89.511 Acquired absence of right leg below knee; Z99.2 Dependence on renal dialysis; Z89.421 Acquired absence of other right toe(s); Z88.0 Allergy status to penicillin; Z90.49 Acquired absence of other specified parts of digestive tract; Z79.4 Long term (current) use of insulin; Z68.38 Body mass index [BMI] 38.0-38.9, adult; E66.01 Morbid (severe) obesity due to excess calories; E78.5 Hyperlipidemia, unspecified; D64.9 Anemia, unspecified
CPT/HCPCS: 36415; 36416; 70450; 70496; 70498; 71045; 74177; 80053; 80177; 80307; 82010; 82330; 82553; 82803; 83690; 83930; 84484; 85007; 85025; 85027; 93306; 94760; 95816; 95819; 96365; 96366; 96367; 99292; J1815; J1953; J2060; J3490; J7050; Q5105; Q9967

== ENCOUNTER 2019-06-23 18:44 | Observation (INO) | payer MEDICARE ==
[2019-06-23 19:12] LABS: Hemoglobin 11.2 g/dL (14.0-18.0); Mean Corpuscular HGB CONC 34.1 g/dL (32.0-36.0); Mean Corpuscular Hemoglobin 32.8 pg (27.0-31.0); Mean Corpuscular Volume 96.2 fL (78.0-98.0); Mean Platelet Volume 8.8 fL (7.4-10.4); Platelet Count 93 thou/uL (130-400); RBC Distribution Width 14.2 % (11.5-14.5); White Blood Cell (WBC) Count 4.5 thou/uL (4.8-10.8)
[2019-06-23 19:26] LABS: ALT (SGPT) 10 U/L (8-55); AST (SGOT) 13 U/L (5-34); Albumin 3.6 g/dL (3.5-5.0); Alkaline Phosphatase 133 U/L (40-110); Anion Gap 23 mmol/L (10-20); BUN (Urea Nitrogen) 56 mg/dL (8.4-25.7); Bilirubin, Total 0.4 mg/dL (0.2-1.2); Calc. Creatinine Clearance 0 mL/min (70-130); Carbon Dioxide 20 mmol/L (22-29); Chloride 96 mmol/L (98-107); Estimated GFR-MDRD 5; Globulin 3.2 g/dL (2.4-3.5); Glucose 292 mg/dL (70-105); Protein, Total 6.8 g/dL (6.0-8.3); Sodium 134 mmol/L (136-145)
[2019-06-23 19:37] LABS: #Basophils 0.1 thou/uL (0.0-0.2); #Eosinphils 0.4 thou/uL (0.0-0.7); #Lymphocytes 1.7 thou/uL (1.20-3.40); #Monocytes 0.5 thou/uL (0.11-0.59); #Neutrophils 1.9 thou/uL (1.40-6.50); %Basophils 1.4 % (0.0-1.0); %Eosinophils 8.6 % (0.0-10.0); %Lymphocytes 37.1 % (21.0-51.0); %Monocytes 10.6 % (0.0-10.0); %Neutrophils 42.2 % (42.0-75.0); Band 2 % (5-11); Eosinophils 8 % (0-10); Lymphocytes 27 % (21-51); MDiff Complete? YES; Monocytes 8 % (0-10); Neutrophil 51 % (42-75); Platelet Morphology Comment Appears Decreased; RBC Morphology Normal; Reactive Lymphocytes 4 % (0-10)
--- NOTE | 2019-06-23 19:38 | CT ---
Head CT without contrast 06/23/2019: COMPARISON: 06/01/2019 HISTORY: Left-sided weakness, numbness, slurred speech, history of strokes TECHNIQUE: Axial CT imaging at 5 mm intervals from vertex through skull base without contrast FINDINGS: The visualized paranasal sinuses and mastoid air cells are well aerated. No displaced virgilio rial fracture. There is evidence of prior infarction within the inferior left cerebellar hemisphere. Periventricular white matter hypodensity again noted, evidence of small vessel disease. No intracranial hemorrhage, midline shift, or mass effect. IMPRESSION: Stable head CT as detailed above. No intracranial hemorrhage is noted. If there is clinic al concern for acute infarction, follow-up brain MRI is recommended.
[2019-06-23 19:49] LABS: CKMB 2.1 ng/mL (0-6.6)
[2019-06-23 19:50] LABS: CK (CPK) 89 U/L (30-200)
--- NOTE | 2019-06-23 21:37 | RAD ---
Portable frontal chest radiograph: 06/23/2019 COMPARISON: 06/01/2019 HISTORY: Left-sided weakness and numbness with slurred speech and history of strokes FINDINGS: Stable prominence of the cardiac silhouette. Lungs appear clear. IMPRESSION: Stable appearance of the chest-no acute findings.
[2019-06-23 22:49] LABS: Troponin I 0.028 ng/mL (< 0.028)
[2019-06-24] MEDS ORDERED: Dextrose 50% Abboject 50 ML SYRINGE SLOW IVP PRN (00:18)
[2019-06-24] MEDS ORDERED: Insulin Regular 300 UNITS/3 ML VIAL SC PRN ×2 (00:18)
[2019-06-24] MEDS ORDERED: Dextrose 5% in Water 1,000 ML IV PRN (00:18)
[2019-06-24] MEDS ORDERED: hydrALAZINE 20 MG/ML VIAL SLOW IVP PRN (00:19)
[2019-06-24] MEDS ORDERED: cloNIDine 0.1 MG TAB PO PRN (00:21)
--- NOTE | 2019-06-24 00:22 | HP ---
PRIMARY CARE: [facility]. PRIMARY AERIAL PHOTOGRAMMETRIST: Dr. Dalal. CHIEF COMPLAINT: Left-sided weakness along with numbness of 3 days' duration. HISTORY OF PRESENT ILLNESS: The patient is a 59-year-old male with end-stage renal disease, on hemodialysis; seizure disorder; hypertension; and diabetes mellitus type 2, presented to the emergency room with above complaints. Please refer to the discharge summary dictated by Dr. Diggs for details on recent hospitalization. He was discharged on May,, with a diagnosis of acute metabolic encephalopathy and recurrent seizures. His hypertensive medications were optimized. History obtained from the patient and the daughter at the bedside. Over the last 3 days, the patient has been feeling generally weak and fatigued. He has been having left-sided weakness and numbness that has been progressively getting worse. His speech was slurry. He has been increasingly somnolent. He has a history of CVA with residual left-sided weakness. He denies any headache, double vision, blurring of vision, facial asymmetry. No chest pain, palpitations, fever, chills, nausea, or vomiting reported. In the emergency room, his initial vital signs showed temperature 98.5, respirations 20, pulse rate of 70 with a blood pressure of 127/60, and O2 saturation of 97% on room air. CT scan of the brain was negative for acute findings. Chest x-ray was negative. The patient missed hemodialysis today due to significant generalized weakness. PAST MEDICAL HISTORY: 1. End-stage renal disease, on hemodialysis. 2. Seizure disorder. 3. Diabetes mellitus type 2. 4. Peripheral vascular disease. 5. History of CVA with residual left-sided weakness. 6. Hypertension. 7. Hyperlipidemia. 8. Recent hospitalization for encephalopathy. PAST SURGICAL HISTORY: 1. Right below-knee amputation. 2. Dialysis access. 3. Cholecystectomy. 4. Tonsillectomy. 5. Left 3rd toe amputation. 6. Carpal tunnel surgery. ALLERGIES: THE PATIENT IS ALLERGIC TO PENICILLIN. CURRENT HOME MEDICATIONS: The patient denies recent changes in his medications. He is unable to recall all of his home medications. He was discharged on following medications two weeks ago, 1. Vitamin D3 of 2000 units daily. 2. Prozac 20 mg daily. 3. Lantus insulin 35 units at bedtime. 4. Renvela 800 mg 3 times a day. 5. Velphoro 500 mg b.i.d. 6. Tylenol as needed. 7. Aspirin 81 mg daily. 8. Clonidine 0.2 mg b.i.d. 9. Epogen every 7 days. 10. Keppra 1000 mg b.i.d. 11. Cozaar 25 mg daily. He states that he took his Keppra prior to ER arrival. SOCIAL HISTORY: The patient currently lives at home with his family. He makes his own decision with the help of his family. He is disabled. No alcohol, tobacco, or drug use reported. He has a history of tobacco abuse in the past. FAMILY HISTORY: Positive for hypertension, coronary artery disease, and diabetes mellitus type 2. REVIEW OF SYSTEMS: Limited due to current mentation. PHYSICAL EXAMINATION: VITAL SIGNS: As discussed above. GENERAL: A 59-year-old male with altered mentation. HEENT: Head, atraumatic and normocephalic. Sclerae anicteric. Dry mucous membranes. No oral lesion. NECK: Supple. No JVD appreciated. No carotid bruit. LUNGS: Clear to auscultation bilaterally. No wheezing, rales, or rhonchi. HEART: S1 and S2 present. Regular rate and rhythm. No rubs or gallops. ABDOMEN: Soft, nontender. Bowel sounds present. No rebound or guarding. EXTREMITIES: No edema or calf tenderness. He has history of right below-knee amputation. NEUROLOGIC: Cranial nerves 2 through 12 are normal on examination. Power is 5/5 on the right and 4/5 on the left. The craldo-mh-[id number] test was abnormal on the left. Sensation to touch was normal bilaterally. Again, the overall exam was limited due to current mentation. PSYCHIATRY: The patient is alert, awake, and oriented x3. Normal affect. However, he falls asleep during conversation. SKIN: Warm and dry. LYMPH NODES: No palpable lymph nodes in the neck. PERIPHERAL/VASCULAR: Radial pulses palpable bilaterally, low volume. MUSCULOSKELETAL: No joint swelling tenderness. LABORATORY FINDINGS: CBC showed WBC of 4.5, hemoglobin 11.2, hematocrit 32.7, platelet 93. Chemistry showed sodium 134, potassium 5, chloride 96, bicarb 20, BUN of 56, creatinine of 10. Troponin of 0.037. Chest x-ray by my review was negative for infiltrate. CT scan of the brain as discussed above. Recent echocardiogram showed ejection fraction of 55% to 60% with grade 1 of 3 diastolic dysfunction. EKG by my review showed sinus rhythm with first-degree AV block. QT was prolonged at 511 with left axis deviation. IMPRESSION: 1. Generalized weakness with left-sided weakness and numbness of 3 days' duration with slurriness of speech, rule out cerebrovascular accident. 2. End-stage renal disease, on hemodialysis. 3. Hypertension. 4. Hyperlipidemia. 5. Seizure disorder. 6. Peripheral vascular disease. 7. History of right below-knee amputation. 8. Hyponatremia. 9. Metabolic acidosis. 10. Type 2 myocardial infarction. 11. Anemia due to renal insufficiency. 12. Thrombocytopenia of unclear etiology. 13. Physical deconditioning. PLAN: The patient will be monitored in the stroke unit. We will check Keppra level. He took Keppra prior to ER arrival. We will start him on his home medications. We will hold Prozac for now. We will complete stroke workup. The patient recently had echocardiogram. We will consult Physical Therapy and Occupational Therapy. Consult Neurology. The patient and the family understands the above plan of care. Job ID: [id number]
[2019-06-24 02:05] VITALS: BMI 42.7
--- NOTE | 2019-06-24 08:31 | PRG ---
DATE OF SERVICE: 06/24/2019 SUBJECTIVE: Mr. Hernandez is a 59-year-old male with ESRD on maintenance hemodialysis. He was initially admitted for left-sided weakness with numbness of the left side. This morning, his weakness is much improved. He did undergo a CT scan of the head on June 23, 2019, and no acute cerebrovascular abnormality was noted. He voices no new complaints today. Please note, he missed dialysis yesterday, and for that reason, scheduled for dialysis today. OBJECTIVE: VITAL SIGNS: Blood pressure 149/74, heart rate 64, respiratory rate 16, temperature 97.9, pulse ox 98%. GENERAL: The patient is awake, alert, comfortable, not in distress. SKIN: Adequate turgor. HEENT: Pinkish conjunctivae. Anicteric sclerae. NECK: No neck mass. No carotid bruits. No JVD. CHEST: No deformities. LUNGS: Clear breath sounds. No wheezing. No crackles. HEART: Normal sinus rhythm. EXTREMITIES: No edema. Status post leg amputation. NEUROLOGICAL: Moving all extremities. No tremors. No asterixis. Medications of June 24, 2019, were reviewed. LABORATORY DATA: Laboratory, June 23, 2019; white count 4.5, hemoglobin 11.2. Sodium 134, potassium 5, chloride 96, carbon dioxide 20, BUN 56, creatinine 10.02, glucose 292, calcium 7, AST 13, ALT 10. ASSESSMENT AND PLAN: 1. End-stage renal disease, stable. We will continue current hemodialysis regimen. We will do his regular dialysis today since he missed his dialysis yesterday. We will then shift him back to a regular Sunday, Sunday, and Sunday hemodialysis. Again, fluid removal only as tolerated. 2. Transient ischemic attack. Continue supportive care. Neurologically, the patient is intact today. 3. Recheck CBC and basic metabolic profile in a.m. Job ID: [id number]
[2019-06-24] MEDS ORDERED: Losartan 25 MG TAB PO SCH (09:00)
[2019-06-24] MEDS ORDERED: cloNIDine 0.2 MG TAB PO SCH (09:00)
[2019-06-24] MEDS ORDERED: Aspirin 81 mg Enteric Coated Tablet PO SCH (09:00)
[2019-06-24] MEDS ORDERED: levETIRAcetam 500 MG TAB PO SCH (09:00)
[2019-06-24 15:26] VITALS: TEMP 98.2
--- NOTE | 2019-06-24 15:31 | MRI ---
EXAM: MRI of the brain without contrast HISTORY: Stroke COMPARISON: 03/28/2018 TECHNIQUE: Multiplanar multisequence MR images were obtained of the brain without IV contrast. FINDINGS: This exam is limited secondary to motion artifact. Encephalomalacia seen in the left cerebellar hemisphere. Scattered foci of high T2/FLAIR signal in the subcortical and periventricular white matter are likely secondary to small vessel ischemic disease. No restricted diffusion. No hydronephrosis. Susceptibility artifact in the right basal ganglia likely represents hemosiderin deposition from greg te injury. No extra-axial fluid collection or acute intracranial hemorrhage. The expected flow voids are present. Corpus callosum, pituitary, and craniocervical junction are within normal limits. The calvarium and overlying soft tissues are unremarkable. The paranasal sinuses and mastoid air cells are well aerated. IMPRESSION: Left cerebellar encephalomalacia without evidence of acute intracranial abnormality.
--- NOTE | 2019-06-24 16:56 | PDOC.HOSPP ---
- Subjective Encounter Date: 06/24/19 Encounter Time: 16:54 Subjective: Mr. Hernandez was seen today in follow-up of left sided weakness. He says his symptoms have improved, but he is not entirely back to normal. - Objective Vital Signs & Weight: Vital Signs (12 hours) Temp Pulse Resp BP BP Pulse Ox 06/24/19 15:00 98.2 F 70 18 126/56 L 97 06/24/19 12:31 98.7 F 70 18 157/79 H 99 06/24/19 08:00 97.9 F 63 18 149/74 H 98 Weight Weight 272 lb 9.6 oz I&O: 06/23/19 06/24/19 06/25/19 06:59 06:59 06:59 Intake Total 120 Output Total 0 Balance 120 Result Diagrams: 06/23/19 18:59 06/23/19 18:59 Additional Labs: Accuchecks 06/24/19 06/24/19 06/24/19 10:51 05:51 02:18 POC Glucose 114 H 213 H 234 H Hospitalist ROS - Medication Medications: Active Medications Generic Name Dose Route Start Last Admin Trade Name Freq PRN Reason Stop Dose Admin Clonidine 0.2 mg 06/24/19 09:00 06/24/19 12:35 Catapres PO 0.2 mg BID HERI Administration Levetiracetam 1,000 mg 06/24/19 09:00 06/24/19 12:36 Keppra PO 1,000 mg BID HERI Administration Losartan Potassium 25 mg 06/24/19 09:00 06/24/19 12:36 Cozaar PO 25 mg DAILY HERI Administration - Exam Eye: PERRL, anicteric sclera Heart: RRR, no murmur, no gallops, no rubs, normal peripheral pulses Respiratory: CTAB, no wheezes, no rales, no ronchi, normal chest expansion, no tachypnea, normal percussion Gastrointestinal: soft, non-tender, non-distended, normal bowel sounds, no palpable masses, no hepatomegaly Extremities: 1+ LE edema Neurological: no new deficit (+ mild left sided weakness and left arm drift. Left leg is also weakner than the right, all extremities demonstrate 5/5 strength) Hosp A/P (1) Transient ischemic attack Code(s): G45.9 - TRANSIENT CEREBRAL ISCHEMIC ATTACK, UNSPECIFIED Status: Acute (2) Dyslipidemia Code(s): E78.5 - HYPERLIPIDEMIA, UNSPECIFIED Status: Chronic (3) ESRD (end stage renal disease) on dialysis Code(s): N18.6 - END STAGE RENAL DISEASE; Z99.2 - DEPENDENCE ON RENAL DIALYSIS Status: Chronic (4) HTN (hypertension) Code(s): I10 - ESSENTIAL (PRIMARY) HYPERTENSION Status: Chronic Qualifiers: - Plan * TIA- MRI results noted. No new infarct * Will add a statin to his medication regimen * HTN- blood pressure is controlled * DM- blood glucose is stable * ESRD- dialysis as per Nephrology
[2019-06-24 17:52] VITALS: BP 143/74
[2019-06-24] MEDS ORDERED: Atorvastatin Calcium 10 MG TAB PO SCH (21:00)
--- NOTE | 2019-06-24 22:21 | CON ---
DATE OF CONSULTATION: 06/24/2019 CONSULTING PHYSICIAN: Hospitalist Service. IMPRESSION: 1. Subjective increased weakness on the left due to recent upper respiratory infection. 2. Prior stroke in the left cerebellum. PLAN: 1. Continue aspirin and statin. 2. Patient can be discharged home. HISTORY OF PRESENT ILLNESS: Mr. Hernandez is a 59-year-old male with history of end-stage renal disease on dialysis, seizure disorder, hypertension, and diabetes. He has developed cough for the last several days. It started to make him feel run down. He thought that the left side was getting a bit weaker. He came in for evaluation. A CT scan showed an old left cerebellar stroke in small vessel ischemic changes. His MRI only showed chronic ischemic changes, but nothing acute. His echocardiogram showed 55% to 60% ejection fraction. CT angiogram of the neck and head were clear. He had EEG done, that was also normal. His cholesterol ratio is 7.0. PAST MEDICAL HISTORY: As listed above. ALLERGIES: PENICILLIN, PIPERACILLIN, ZOSYN, AND TAZOBACTAM. SOCIAL HISTORY: Unremarkable. FAMILY HISTORY: Unremarkable. REVIEW OF SYSTEMS: Ten-system review of systems is otherwise negative. PHYSICAL EXAMINATION: VITAL SIGNS: Blood pressure 149/74, pulse 63, respirations 18. HEENT: Pupils equal. Conjunctivae clear. Oropharynx clear. NECK: Supple. EXTREMITIES: No cyanosis, clubbing, or edema. NEUROLOGIC: He was alert and cooperative. Speech is fluent and clear. Cranial nerves were intact. Motor exam showed some minimal left-sided weakness. Gait was not tested. No abnormal movements were seen. SUMMARY: Middle-aged man with some subjective increased weakness, likely secondary to an upper respiratory infection. He has had a prior stroke and I agree with his current management with aspirin and statin. He appears stable for discharge. Job ID: [id number]
--- NOTE | 2019-06-25 03:40 | DIS ---
DATE OF ADMISSION: 06/23/2019 DATE OF DISCHARGE: 06/24/2019 DISCHARGE DISPOSITION: Home. DISCHARGE DIAGNOSES: 1. Transient ischemic attack. 2. End-stage renal disease, on hemodialysis. 3. Hypertension. 4. Diabetes mellitus type 2. 5. Seizure disorder. 6. History of peripheral vascular disease. DISCHARGE MEDICATIONS: Include, please note Lipitor 10 mg p.o. at bedtime was added, continue: 1. Losartan 25 mg daily. 2. Keppra 1000 mg twice a day. 3. Procrit 7500 units as directed. 4. Catapres 0.2 mg p.o. twice a day. 5. Tylenol 650 mg q.4 hours as needed. 6. Sucroferric 500 mg daily. 7. Sevelamer 800 mg t.i.d. 8. Lantus insulin 35 units subcutaneous at bedtime. 9. Prozac 20 mg daily. 10. Vitamin D3 2000 units daily. CODE STATUS: Full code. ALLERGIES: TO PENICILLIN, PIPERACILLIN, TAZOBACTAM. IMAGING: Done during the hospital stay, the patient had a CT scan of the brain, which was negative for any intracranial hemorrhage. There was no infarct seen. The patient had an MRI of the brain showing a left cerebellar encephalomalacia without evidence of acute intracranial abnormality. HOSPITAL COURSE: Mr. Hernandez is a pleasant 59-year-old gentleman, who was admitted to the hospital with left-sided weakness. He has a history of previous stroke with left-sided weakness and says he felt that his weakness was a bit worse than usual. He was placed in observation due to possible transient ischemic attack versus CVA. He had recently been admitted to the hospital and had an echocardiogram as well as a CT angiogram. These were not repeated during his hospital stay. It was noted that he is currently not on a statin and for this reason, Lipitor will be added. We will continue the aspirin at the previous dose. His symptoms have started to improve during his observation time and with continued improvement, it is felt that he is safe to be discharged home with the addition of the statin to his medication regimen and close outpatient followup. Job ID: [id number]
[2019-06-25] MEDS ORDERED: Aspirin 325 MG TAB PO SCH (09:00)
== END 2019-06-24 18:18 | disposition home or self-care (01) ==
LOC: ERS 18:44 → 2SE 22:13
PROVIDERS: ADMIT Internal Medicine; ATTEND Internal Medicine
DX: G45.9 Transient cerebral ischemic attack, unspecified (principal); I12.0 Hypertensive chronic kidney disease with stage 5 chronic kidney disease or end stage renal disease; E11.22 Type 2 diabetes mellitus with diabetic chronic kidney disease; N18.6 End stage renal disease; D63.1 Anemia in chronic kidney disease; G40.909 Epilepsy, unspecified, not intractable, without status epilepticus; E11.51 Type 2 diabetes mellitus with diabetic peripheral angiopathy without gangrene; E78.5 Hyperlipidemia, unspecified; I69.354 Hemiplegia and hemiparesis following cerebral infarction affecting left non-dominant side; E87.1 Hypo-osmolality and hyponatremia; E11.10 Type 2 diabetes mellitus with ketoacidosis without coma; D69.6 Thrombocytopenia, unspecified; F17.210 Nicotine dependence, cigarettes, uncomplicated; F14.11 Cocaine abuse, in remission; Z79.4 Long term (current) use of insulin; Z79.82 Long term (current) use of aspirin; Z79.899 Other long term (current) drug therapy; Z88.0 Allergy status to penicillin; Z88.1 Allergy status to other antibiotic agents; Z89.422 Acquired absence of other left toe(s); Z89.511 Acquired absence of right leg below knee; Z99.2 Dependence on renal dialysis
CPT/HCPCS: 70450; 70551; 71045; 80053; 80061; 80177; 82550; 82553; 82962; 84484 ×2; 85025; 87804 ×2; 93005; 94760; 97139 ×3; 97535; 99285; G0378 ×3; 36415; 36416; J1815

== ENCOUNTER 2019-07-27 07:57 | Inpatient (IN) | payer MEDICARE ==
[2019-07-27 08:36] LABS: #Eosinphils 0.2 thou/uL (0.0-0.7); #Lymphocytes 1.6 thou/uL (1.20-3.40); #Monocytes 0.4 thou/uL (0.11-0.59); %Basophils 0.3 % (0.0-1.0); %Eosinophils 3.4 % (0.0-10.0); %Lymphocytes 21.9 % (21.0-51.0); %Monocytes 5.9 % (0.0-10.0); %Neutrophils 68.5 % (42.0-75.0); Hemoglobin 12.5 g/dL (14.0-18.0); Mean Corpuscular HGB CONC 34.1 g/dL (32.0-36.0); Mean Corpuscular Hemoglobin 32.2 pg (27.0-31.0); Mean Corpuscular Volume 94.4 fL (78.0-98.0); Mean Platelet Volume 8.3 fL (7.4-10.4); Platelet Count 127 thou/uL (130-400); RBC Distribution Width 13.9 % (11.5-14.5); Red Blood Cell (RBC) Count 3.87 mill/uL (4.70-6.10); White Blood Cell (WBC) Count 7.2 thou/uL (4.8-10.8)
[2019-07-27 08:56] LABS: ALT (SGPT) 10 U/L (8-55); AST (SGOT) 11 U/L (5-34); Alkaline Phosphatase 184 U/L (40-110); Anion Gap 23 mmol/L (10-20); BUN (Urea Nitrogen) 70 mg/dL (8.4-25.7); Bilirubin, Total 0.4 mg/dL (0.2-1.2); Calc. Creatinine Clearance 0 mL/min (70-130); Calcium 7.5 mg/dL (7.8-10.44); Carbon Dioxide 20 mmol/L (22-29); Chloride 97 mmol/L (98-107); Estimated GFR-MDRD 5; Globulin 3.3 g/dL (2.4-3.5); Glucose 188 mg/dL (70-105); Magnesium 2.4 mg/dL (1.6-2.6); Potassium 6.4 mmol/L (3.5-5.1); Protein, Total 7.3 g/dL (6.0-8.3); Sodium 134 mmol/L (136-145)
--- NOTE | 2019-07-27 09:14 | CT ---
CT HEAD WITHOUT IV CONTRAST COMPARISON: 06/23/2019 HISTORY: Right-sided weakness TECHNIQUE: Axial CT imaging at 5 mm intervals from vertex through skull base without contrast FINDINGS: There is decreased attenuation in the periventricular white matter which is nonspecific but likely re flective of chronic small vessel ischemic changes which is not progressed compared to prior study. Area of encephalomalacia in the left cerebellar hemisphere is again seen and unchanged. Stable calcif ication right anterior frontal lobe is again present. There is mild cerebral volume loss. Ventricular system is stable in appearance without hydrocephalus. There is no evidence of an acute infarction, hemorrhage, mass effect, or midline shift. Visualized paranasal sinuses are clear. Osseous structures appear intact. IMPRESSION: 1. No acute intracranial abnormality demonstrated. 2. Chronic small vessel ischemic changes and cerebral volume loss. 3. Remote infarction left cerebellar hemisphere with large area of encephalomalacia again present.
[2019-07-27 09:17] LABS: CKMB 4.6 ng/mL (0-6.6)
[2019-07-27] MEDS ORDERED: Aspirin Chewable 81 MG TAB ONE (09:24)
[2019-07-27] MEDS ORDERED: Calcium Chloride 1 GM/10 ML Abboject SYRINGE ONE (09:26)
[2019-07-27] MEDS ORDERED: Sodium Bicarb 50 MEQ/50 ML VIAL ONE (09:26)
[2019-07-27] MEDS ORDERED: Dextrose 50% Abboject 50 ML SYRINGE ONE (09:26)
[2019-07-27] MEDS ORDERED: Insulin Regular 300 UNITS/3 ML VIAL ONE (09:26)
--- NOTE | 2019-07-27 09:38 | RAD ---
PORTABLE CHEST: HISTORY: Chest pain. FINDINGS: Lungs are clear. No infiltrate. Heart size upper normal but stable from prior exam of 06/23/19. IMPRESSION: No acute finding. No interval change from prior examination. POS: AGW
[2019-07-27] MEDS ORDERED: Senokot S 8.6-50 MG TAB PO PRN (09:58)
[2019-07-27] MEDS ORDERED: Dextrose 5% in Water 1,000 ML IV PRN (10:01)
[2019-07-27] MEDS ORDERED: Dextrose 50% Abboject 50 ML SYRINGE SLOW IVP PRN (10:01)
[2019-07-27] MEDS ORDERED: HumaLOG 300 UNITS/3 ML VIAL SC PRN ×2 (10:01→20:18)
[2019-07-27] MEDS ORDERED: hydrALAZINE 20 MG/ML VIAL ONE (11:42)
[2019-07-27] MEDS ORDERED: hydrALAZINE 20 MG/ML VIAL SLOW IVP SCH (11:45)
[2019-07-27] MEDS: Sevelamer Carbonate 800 MG TAB PO SCH ×2 (12:04→16:26)
[2019-07-27 12:22] LABS: Troponin I 0.024 ng/mL (< 0.028)
[2019-07-27 12:32] VITALS: BMI 39.6
[2019-07-27] MEDS ORDERED: FLU VACC QS2019-20(6MOS UP)/PF 60 MCG/0.5 ML SYRINGE IM ONE (13:00)
[2019-07-27] MEDS: Acetaminophen 325 MG TAB PO PRN (15:59)
[2019-07-27 16:26] LABS: Troponin I 0.029 ng/mL (< 0.028)
[2019-07-27] MEDS: cloNIDine 0.2 MG TAB PO SCH (20:24)
[2019-07-27] MEDS: levETIRAcetam 500 MG TAB PO SCH (20:24)
[2019-07-27] MEDS ORDERED: Atorvastatin Calcium 10 MG TAB PO SCH (21:00)
[2019-07-28 04:56] LABS: #Eosinphils 0.2 thou/uL (0.0-0.7); #Lymphocytes 1.6 thou/uL (1.20-3.40); #Monocytes 0.5 thou/uL (0.11-0.59); %Basophils 0.1 % (0.0-1.0); %Eosinophils 3.3 % (0.0-10.0); %Lymphocytes 25.4 % (21.0-51.0); %Monocytes 7.2 % (0.0-10.0); %Neutrophils 63.9 % (42.0-75.0); Hemoglobin 11.8 g/dL (14.0-18.0); Mean Corpuscular HGB CONC 32.7 g/dL (32.0-36.0); Mean Corpuscular Hemoglobin 30.9 pg (27.0-31.0); Mean Corpuscular Volume 94.6 fL (78.0-98.0); Mean Platelet Volume 8.1 fL (7.4-10.4); Platelet Count 136 thou/uL (130-400); RBC Distribution Width 13.9 % (11.5-14.5); Red Blood Cell (RBC) Count 3.82 mill/uL (4.70-6.10); White Blood Cell (WBC) Count 6.2 thou/uL (4.8-10.8)
[2019-07-28 05:14] LABS: Anion Gap 23 mmol/L (10-20); BUN (Urea Nitrogen) 49 mg/dL (8.4-25.7); Calc. Creatinine Clearance 15 mL/min (70-130); Calcium 7.5 mg/dL (7.8-10.44); Carbon Dioxide 21 mmol/L (22-29); Chloride 98 mmol/L (98-107); Estimated GFR-MDRD 6; Glucose 131 mg/dL (70-105); Sodium 137 mmol/L (136-145)
--- NOTE | 2019-07-28 06:14 | HP ---
CHIEF COMPLAINT: Right-sided headache and chest pain. HISTORY OF PRESENT ILLNESS: The patient is a very pleasant 59-year-old male, who presents to the hospital with complaints of right-sided head pain, which started today. The patient stated that his head pain was very throbbing and that he has had a previous intracranial bleed apparently in 2005. He stated that because of his similarity with the headache, he came into the ER for further evaluation. The patient also states that he has been having some chest pain starting from his left shoulder going to his left chest wall area. He denies any shortness of breath. Denies any orthopnea or PND. However, he does sleep on three pillows all the time every day. He denies any fevers or chills. The patient states that he had diarrhea apparently on and Sunday and because of that, he did not feel well and he did not go for dialysis. He tried to get a chair in dialysis on Sunday; however, this did not work. PAST MEDICAL HISTORY: 1. The patient has a history of end-stage renal disease. He is on dialysis on Sunday, Sunday, and Sunday. 2. He has a history of seizure disorder. 3. Diabetes, type 2. 4. Peripheral vascular disease. 5. CVA with left-sided residual weakness. 6. Also hypertension. 7. Hyperlipidemia. 8. Recent hospitalization for encephalopathy. PAST SURGICAL HISTORY: He has had a below knee amputation of the right knee, dialysis access cath, cholecystectomy, tonsillectomy, left third toe amputation, and carpal tunnel surgery. ALLERGIES: THE PATIENT IS ALLERGIC TO PENICILLIN. MEDICATIONS: As of the following. This is per documentation since he does not recall his medications. He is on, 1. Prozac 20 mg daily. 2. Lantus 35 units at bedtime. 3. Renvela 800 mg t.i.d. 4. Tylenol as needed. 5. Aspirin 81 mg daily. 6. Clonidine 0.2 mg b.i.d. 7. Keppra 1000 mg b.i.d. 8. Cozaar 25 mg daily. SOCIAL HISTORY: He currently lives at home with his family. Denies any alcohol use, drug use, or smoking history. He is a full code. FAMILY HISTORY: Positive for hypertension, coronary artery disease, and diabetes. REVIEW OF SYSTEMS: All negative except for the ones mentioned above in the HPI. PHYSICAL EXAMINATION: VITAL SIGNS: As of the following; temperature 97.4, heart rate 67, respirations 20, O2 sat 98% on room air, and blood pressure 161/72. GENERAL: He is awake, alert, and oriented x3, currently is in dialysis, does not appear in any distress. However, I did evaluate the patient prior to this since he had change in mental status, which was most likely secondary to hypoglycemia. CV: S1 and S2 present. No murmurs, rubs, or gallops. LUNGS: Clear to auscultation. No rhonchi or wheezes noted. ABDOMEN: Soft, obese. Bowel sounds present x2. He has a left arm fistula. EXTREMITIES: He has a right below knee amputation and left lower extremity edema. NEUROVASCULAR: He does have significant deficits, weakness to the left upper extremity and left lower extremity. SKIN: No cuts or lesions or bruises noted. LABORATORY RESULTS: As of the following; WBCs of 7.2, hemoglobin of 12.5, hematocrit of 36.5, and platelets of 127. Chemistry; sodium of 134, potassium of 6.4, BUN of 70, and creatinine of 10.59. IMAGING DATA: He did have a CT head and a chest x-ray. The CT head did not show any acute intracranial abnormalities, just chronic small-vessel ischemic changes. Remote infarct in the left cerebellum hemisphere with large area of encephalomalacia again present. Chest x-ray, no acute abnormalities noted upon my interpretation. ASSESSMENT AND PLAN: The patient is a very pleasant 59-year-old male, who presents to the hospital initially with chest pain and headache, who was also found to be very lethargic. 1. Acute metabolic encephalopathy. This was most likely secondary to hypoglycemia. The patient was in the ER due to his hyperkalemia. He received the hyperkalemia protocol, which included insulin, which caused his sugars to be low at 48. I did evaluate him at bedside. He was given D50. He improved rapidly and he was taken to the dialysis. 2. Chest pain. His chest pain is reproducible. However, he did have some mild elevated troponins. He has had a previous echocardiogram. I will go ahead and do a stress test. However, I believe his chest pain is most likely atypical and is reproducible as I mentioned on palpation and is musculoskeletal related. 3. Headache. Currently, he is asymptomatic. He has no headache. When he was in the ER, the patient had mentioned that he had some transient right-sided weakness, which was very transient and resolved while he came into the ER. His CT brain was negative. He has had a previous MRI last month on June 24, 2019, which indicated just left cerebellum encephalomalacia without any evidence of acute intracranial abnormalities. I will go ahead and repeat the MRI; however, I do not think that is going to indicate any additional results for this patient. 4. End-stage renal disease, on dialysis. He is undergoing dialysis currently due to his hyperkalemia. 5. Hyperkalemia. I did review the EKG. There were no EKG changes. He did receive a hyperkalemia protocol cocktail in the ER. We will check a BMP post dialysis. 6. History of cerebrovascular accident. We will continue his home medications of statin and aspirin. 7. Hypertensive urgency. He was found to have a blood pressure of 200/99. At this time, he was given some IV hydralazine, which improved his pressures to 160/80. This is the time where he was found to be hypoglycemic. 8. Deep venous thrombosis prophylaxis. I will put him on some SCDs and also possible heparin versus Lovenox. Job ID: [id number]
[2019-07-28] MEDS: Sevelamer Carbonate 800 MG TAB PO SCH ×3 (07:56→17:38)
[2019-07-28] MEDS ORDERED: Aspirin 81 mg Enteric Coated Tablet PO SCH (09:00)
[2019-07-28] MEDS ORDERED: FLUoxetine HCl 20 MG CAP PO SCH (09:00)
[2019-07-28] MEDS ORDERED: Losartan 25 MG TAB PO SCH (09:00)
[2019-07-28] MEDS ORDERED: Enoxaparin Sodium 30 MG/0.3 ML SYRINGE SC SCH (09:00)
[2019-07-28 10:28] LABS: Troponin I 0.021 ng/mL (< 0.028)
--- NOTE | 2019-07-28 10:45 | CON ---
DATE OF CONSULTATION: HISTORY OF PRESENT ILLNESS: Mr. Hernandez is a 59-year-old male with ESRD and admitted for right-sided headache and chest pain. We are being consulted for his management of his ESRD. He is currently undergoing his regular hemodialysis today. REVIEW OF SYSTEMS: Positive for headache. No syncopal episode. Positive for left-sided weakness - chronic. No chest pain. No shortness of breath. No nausea. No vomiting. Occasional leg edema. No diarrhea. No constipation. No productive cough. No fever or chills. Appetite and energy level are fair. HOME MEDICATIONS: Include the followin. Cozaar 25 mg p.o. daily. 2. Keppra 1000 mg p.o. b.i.d. 3. Clonidine 0.2 mg b.i.d. 4. Aspirin 81 mg tablet daily. 5. Renvela 800 mg p.o. t.i.d. with meals. 6. Lantus 35 units subcutaneously at bedtime. 7. Prozac 20 mg tablet once a day. PAST MEDICAL HISTORY: 1. Status post CVA. 2. Status post seizure disorder. 3. Type 2 diabetes mellitus. 4. End-stage renal disease from diabetic nephropathy. 5. Hypertension. 6. Hyperlipidemia. 7. Status post encephalopathy. PAST SURGICAL HISTORY: 1. Status post debridement of right foot ulcer. 2. Status post left toe amputation. 3. Status post laparoscopic cholecystectomy. 4. Status post AV fistula placement. 5. Status post cuffed hemodialysis catheter placement. 6. Status post right BKA. SOCIAL HISTORY: The patient lives in [place]. 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 Lives with his daughter. Has several children. He is . Medically disabled. No drug abuse. Status post multiple blood transfusion. No smoking or alcohol intake. ALLERGIES: NONE. TRAUMA: None. IMMUNIZATIONS: Up-to-date. HOSPITALIZATIONS: Please see past medical history. FAMILY HISTORY: No family history of ESRD. PHYSICAL EXAMINATION: VITAL SIGNS: Blood pressure 107/57, heart rate 67, respiratory rate 18, temperature 98.4, pulse ox 98%. GENERAL: Noted to be awake, alert, supine, comfortable, not in overt distress, obese. SKIN: Adequate turgor. HEENT: He has pinkish conjunctivae. Anicteric sclerae. NECK: No neck mass. No carotid bruits. No JVD. CHEST: No deformities. LUNGS: Decreased breath sounds. HEART: Normal sinus rhythm. No murmur. No gallops. No rubs. ABDOMEN: Globular, soft, and nontender. No masses. EXTREMITIES: No edema. He is noted to be status post right BKA. NEUROLOGIC: Moving all extremities. Oriented to 3 spheres. No tremors. No asterixis. LABORATORY DATA: Laboratories of July 28, 2019: White count 6.2, hemoglobin 11.8. Sodium 137, potassium 5, chloride 98, carbon dioxide 21, BUN 49, creatinine 8.58, glucose 131, calcium 7.5. ASSESSMENT AND PLAN: 1. End-stage renal disease, stable. We will continue current Sunday, Sunday, and Sunday hemodialysis regimen. Fluid removal as tolerated by the patient. So far, he is tolerating the current dialysis regimen. 2. Chronic anemia. No indication for initiation of Epogen. 3. Headache. 4. Left-sided weakness - chronic. The patient underwent CT scan of the head on July 27, 2019, which showed no acute intracranial abnormality. Overall, agree with current management. Job ID: [id number]
[2019-07-28] MEDS: cloNIDine 0.2 MG TAB PO SCH (11:38)
[2019-07-28] MEDS: levETIRAcetam 500 MG TAB PO SCH (12:02)
--- NOTE | 2019-07-28 15:15 | MRI ---
MRI brain noncontrast HISTORY: CVA. COMPARISON: 06/24/2019. FINDINGS: There is no evidence of acute intracranial hemorrhage or infarct. Encephalomalacia from an old infarct involving the left cerebellar hemisphere is similar in appearance to the prior exam. Prominent chronic ischemic small vessel disease is again demonstrated throughout the periventricular white matter of each cerebral hemisphere. There is no mass effect or shift of midline structures. Visualized paranasal sinuses remain well aerated. IMPRESSION : Old left cerebellar infarct and other chronic-type findings are stable. No acute intracranial abnorma lities are demonstrated.
[2019-07-28 15:43] VITALS: BP 118/65; TEMP 97.9
[2019-07-28] MEDS: Acetaminophen 325 MG TAB PO PRN (15:53)
[2019-07-28 16:00] LABS: Troponin I 0.025 ng/mL (< 0.028)
[2019-07-28 18:03] LABS: Troponin I 0.029 ng/mL (< 0.028)
--- NOTE | 2019-07-28 18:46 | DIS ---
DATE OF ADMISSION: 07/27/2019 DATE OF DISCHARGE: 07/28/2019 DISCHARGE DIAGNOSES: 1. Acute metabolic encephalopathy, resolved. 2. Hypoglycemia, resolved. 3. Hyperkalemia, resolved. 4. Right upper extremity weakness, possible transient ischemic attack, resolved. 5. Chest pain, atypical, resolved. HOSPITAL COURSE: The patient is a 59-year-old male, who initially presented to the hospital with headache and also chest pain. His chest pain was very reproducible on percussion. He had mildly elevated troponins. No EKG changes. He also had some right-sided transient weakness, which had resolved while he was in the ER. MRI of brain did not show any acute or new findings. I did not complete a full TIA protocol since he was recently here back in last month and had a full workup done. He also at this time was found to be hyperkalemic and he was dialyzed and this was because he had missed dialysis. The patient's symptoms improved. He will be discharged home. He will follow up with his primary care doctor. His MRI of brain indicated old left cerebellar infarct and other chronic-type findings, otherwise stable. DISCHARGE MEDICATIONS: His home medications, again, I have not changed anything, he will continue his home medications and they are as of the followin. He is going to be on clonidine 0.2 twice a day. 2. Keppra 1000 mg b.i.d. 3. Losartan 25 mg daily. 4. Tylenol 650 q.4 hours p.r.n. 5. Renvela 800 mg t.i.d. 6. Insulin 35 units at bedtime. 7. Atorvastatin 10 mg p.o. at bedtime. 8. Plavix (clopidogrel). PHYSICAL EXAMINATION: VITAL SIGNS: Temperature 97.9, pulse 76, respiratory rate 16, 95% on room air, and blood pressure 118/65. GENERAL: He is awake, alert, and oriented x3. Does not appear in distress. CV: S1, S2 present. No murmurs, rubs, or gallops. ABDOMEN: Soft and nontender. Bowel sounds are present x2. DISCHARGE INSTRUCTIONS: Again, he will be discharged home. He will follow up with his primary . Job ID: [id number]
== END 2019-07-28 18:01 | disposition home or self-care (01) | DRG 637 ==
LOC: ERS 07:57 → 2NO 11:22 → 2SE 12:49
PROVIDERS: ADMIT Internal Medicine; ATTEND Internal Medicine
PROC: 5A1D70Z Performance of Urinary Filtration, Intermittent, Less than 6 Hours Per Day (ICD-10-PCS; principal; 2019-07-28)
DX: E11.649 Type 2 diabetes mellitus with hypoglycemia without coma (principal); G93.41 Metabolic encephalopathy; I69.354 Hemiplegia and hemiparesis following cerebral infarction affecting left non-dominant side; I12.0 Hypertensive chronic kidney disease with stage 5 chronic kidney disease or end stage renal disease; E78.5 Hyperlipidemia, unspecified; E11.22 Type 2 diabetes mellitus with diabetic chronic kidney disease; N18.6 End stage renal disease; I73.9 Peripheral vascular disease, unspecified; R07.89 Other chest pain; E87.5 Hyperkalemia; I16.0 Hypertensive urgency; G45.9 Transient cerebral ischemic attack, unspecified; D64.9 Anemia, unspecified; Z91.15 Patient's noncompliance with renal dialysis; Z99.2 Dependence on renal dialysis; Z90.49 Acquired absence of other specified parts of digestive tract; Z90.89 Acquired absence of other organs; Z88.0 Allergy status to penicillin; Z79.82 Long term (current) use of aspirin; Z79.4 Long term (current) use of insulin
CPT/HCPCS: 36415; 36416; 70450; 70551; 71045; 80048; 80053; 82553; 83735; 83880; 84484; 85025; 90935; 93005; G0257; J0360; J1650; J1815

== ENCOUNTER 2019-08-29 17:01 | Emergency (ER) | payer MEDICARE ==
[2019-08-29 17:49] LABS: #Eosinphils 0.2 thou/uL (0.0-0.7); #Lymphocytes 1.5 thou/uL (1.20-3.40); #Monocytes 0.7 thou/uL (0.11-0.59); #Neutrophils 4.1 thou/uL (1.40-6.50); %Basophils 0.1 % (0.0-1.0); %Eosinophils 2.9 % (0.0-10.0); %Monocytes 10.3 % (0.0-10.0); %Neutrophils 63.7 % (42.0-75.0); Mean Corpuscular HGB CONC 33.5 g/dL (32.0-36.0); Mean Corpuscular Hemoglobin 31.5 pg (27.0-31.0); Mean Platelet Volume 8.1 fL (7.4-10.4); Platelet Count 147 thou/uL (130-400); RBC Distribution Width 12.9 % (11.5-14.5); Red Blood Cell (RBC) Count 3.48 mill/uL (4.70-6.10); White Blood Cell (WBC) Count 6.4 thou/uL (4.8-10.8)
[2019-08-29 18:10] LABS: ALT (SGPT) 7 U/L (8-55); AST (SGOT) 8 U/L (5-34); Albumin 3.5 g/dL (3.5-5.0); Alkaline Phosphatase 156 U/L (40-110); Anion Gap 13 mmol/L (10-20); BUN (Urea Nitrogen) 16 mg/dL (8.4-25.7); Bilirubin, Total 0.4 mg/dL (0.2-1.2); Calc. Creatinine Clearance 0 mL/min (70-130); Calcium 8.2 mg/dL (7.8-10.44); Carbon Dioxide 26 mmol/L (22-29); Chloride 93 mmol/L (98-107); Estimated GFR-MDRD 13; Globulin 3.3 g/dL (2.4-3.5); Potassium 3.4 mmol/L (3.5-5.1); Protein, Total 6.8 g/dL (6.0-8.3); Sodium 129 mmol/L (136-145)
[2019-08-29 18:16] LABS: Glucose 689 mg/dL (70-105)
[2019-08-29] MEDS ORDERED: Insulin Regular 300 UNITS/3 ML VIAL ONE ×2 (19:41→20:50)
== END 2019-08-29 23:39 | disposition home or self-care (01) ==
LOC: ERS 17:01
DX: E11.65 Type 2 diabetes mellitus with hyperglycemia (principal); I12.0 Hypertensive chronic kidney disease with stage 5 chronic kidney disease or end stage renal disease; E11.22 Type 2 diabetes mellitus with diabetic chronic kidney disease; N18.6 End stage renal disease; E78.5 Hyperlipidemia, unspecified; F17.210 Nicotine dependence, cigarettes, uncomplicated; Z99.2 Dependence on renal dialysis; Z86.73 Personal history of transient ischemic attack (TIA), and cerebral infarction without residual deficits
CPT/HCPCS: 36415; 36416; 80053; 82010; 83605; 85025; 93005; 96361; 96374; 96376; J1815

== ENCOUNTER 2019-12-03 11:43 | Emergency (ER) | payer MEDICARE, OTHER ==
[2019-12-04 13:46] LABS: SARS-CoV-2 MS2 Positive; SARS-CoV-2 N Gene Negative; SARS-CoV-2 S Gene Negative; SARS-CoV-2 by NAA Not Detected (NotDetected); SARS-CoV-2 orf1ab Negative
== END 2019-12-03 12:17 | disposition home or self-care (01) ==
LOC: ERS 11:43
DX: Z20.828 Contact with and (suspected) exposure to other viral communicable diseases (principal); E78.5 Hyperlipidemia, unspecified; E11.22 Type 2 diabetes mellitus with diabetic chronic kidney disease; I12.9 Hypertensive chronic kidney disease with stage 1 through stage 4 chronic kidney disease, or unspecified chronic kidney disease; N18.9 Chronic kidney disease, unspecified; F17.210 Nicotine dependence, cigarettes, uncomplicated
CPT/HCPCS: 99283; U0003; 87635

== ENCOUNTER 2020-01-31 14:21 | Emergency (ER) | payer MEDICARE, OTHER ==
[2020-01-31 15:04] LABS: #Basophils 0.1 thou/uL (0.0-0.2); #Eosinphils 0.1 thou/uL (0.0-0.7); #Lymphocytes 1.8 thou/uL (1.20-3.40); #Monocytes 0.5 thou/uL (0.11-0.59); #Neutrophils 6.2 thou/uL (1.40-6.50); %Basophils 0.7 % (0.0-1.0); %Eosinophils 1.6 % (0.0-10.0); %Lymphocytes 21.1 % (21.0-51.0); %Monocytes 5.6 % (0.0-10.0); Hemoglobin 11.3 g/dL (14.0-18.0); Mean Corpuscular HGB CONC 33.3 g/dL (32.0-36.0); Mean Corpuscular Hemoglobin 31.5 pg (27.0-31.0); Mean Corpuscular Volume 94.8 fL (78.0-98.0); Platelet Count 178 thou/uL (130-400); RBC Distribution Width 12.4 % (11.5-14.5); White Blood Cell (WBC) Count 8.7 thou/uL (4.8-10.8)
[2020-01-31 15:27] LABS: ALT (SGPT) 7 U/L (8-55); AST (SGOT) 11 U/L (5-34); Albumin 3.8 g/dL (3.5-5.0); Alkaline Phosphatase 157 U/L (40-110); Anion Gap 19 mmol/L (10-20); BUN (Urea Nitrogen) 41 mg/dL (8.4-25.7); Bilirubin, Total 0.4 mg/dL (0.2-1.2); Calc. Creatinine Clearance 0 mL/min (70-130); Calcium 8.2 mg/dL (7.8-10.44); Carbon Dioxide 24 mmol/L (22-29); Chloride 95 mmol/L (98-107); Estimated GFR-MDRD 9; Globulin 3.3 g/dL (2.4-3.5); Glucose 419 mg/dL (70-105); Protein, Total 7.1 g/dL (6.0-8.3); Sodium 134 mmol/L (136-145)
[2020-01-31] MEDS ORDERED: Cefepime 2 GM VIAL ONE (15:48)
--- NOTE | 2020-01-31 16:16 | RAD ---
RIGHT WRIST THREE VIEWS: 01/31/20 HISTORY: Wound to the fifth knuckle region. Wrist pain and swelling. There is some erosive bony change which has sclerotic margins along the distal radius near the radial styloid. I would favor that this represents chronic change unless the patient has a wound in this ar ea and which chronic changes related to some indolent osteomyelitis could not be definitely excluded. Extensive atherosclerosis changes are noted. IMPRESSION: Erosive bony changes with sclerosis along the distal radius which I would favor to be chronic in natu re as discussed above. POS: OFF
--- NOTE | 2020-01-31 16:22 | RAD ---
RIGHT HAND THREE VIEWS: 01/31/20 HISTORY: Wound to fifth knuckle. Swelling and pain to wrist. Vascular calcifications are noted and arthritic changes of the hand are present. I do not see any sig ns of fracture and there is no bony evidence for osteomyelitis. IMPRESSION: 1. Fairly extensive atherosclerosis. Mild arthritic changes of the hand and wrist. 2. Some chronic erosive change along the radial styloid region, but this was very sclerotic and is not felt to be acute. Patient's description of the wound is supposedly in the region of the little finger. POS: OFF
[2020-01-31] MEDS ORDERED: HYDROcodone/Acetaminophen 10/325 mg Tablet ONE (16:40)
[2020-01-31] MEDS ORDERED: Ondansetron ODT 4 MG TAB ONE (16:40)
[2020-01-31] MEDS ORDERED: Clindamycin 150 MG CAP ONE (16:48)
--- NOTE | 2020-01-31 19:16 | ULT ---
RIGHT UPPER EXTREMITY VENOUS DUPLEX EXAM: 01/31/20 Veins of the right upper extremity evaluated with ultrasound and Doppler with color Doppler, spectral analysis and compression. INDICATIONS: Right upper extremity pain and edema. FINDINGS: Right internal jugular vein shows normal flow and compression. The right subclavian vein shows normal flow with Doppler. Right axillary vein, brachial vein, cephalic vein, basilic vein, radial vein, and ulnar veins were all interrogated. These veins are also normal flow and compression. No evidence of venous thrombosis. IMPRESSION: No evidence of venous thrombosis of the right upper extremity. POS: AGW
== END 2020-01-31 16:57 | disposition home or self-care (01) ==
LOC: ERS 14:21
DX: R60.0 Localized edema (principal); E78.5 Hyperlipidemia, unspecified; I10 Essential (primary) hypertension; E11.9 Type 2 diabetes mellitus without complications; F17.210 Nicotine dependence, cigarettes, uncomplicated; Z79.82 Long term (current) use of aspirin; Z79.4 Long term (current) use of insulin; Z79.899 Other long term (current) drug therapy
CPT/HCPCS: 80053; 83605; 85025; 85652; 86140; 87040; J0692; J3370; J7030; Q0162

== ENCOUNTER 2020-02-02 13:34 | Inpatient (IN) | payer MEDICARE, OTHER ==
[~2020-02-02 13:34] MED LIST changes: +Iopamidol-370 76% 500 ML 1 ML ONE; -Sodium Chloride 0.9% 15 ML NEB ONE
[2020-02-02] MEDS ORDERED: Lorazepam 2 MG/ML VIAL ONE (13:43)
--- NOTE | 2020-02-02 13:56 | CT ---
CT HEAD WITHOUT IV CONTRAST COMPARISON: 07/27/2019 HISTORY: Stroke alert. Patient with a aphasia. Possible seizure. TECHNIQUE: Axial CT imaging at 5 mm intervals from vertex through skull base without contrast FINDINGS: There is decreased attenuation in the periventricular white matter which is nonspecific but likely re flective of chronic small vessel ischemic changes not significantly progressed from prior study. Large area of encephalomalacia involving the inferior aspect left cerebellar hemisphere is again seen compatible with remote infarction. Low-density areas seen in the superior aspect of the left thalamus which could be related to volume averaging or possibly secondary to a remote lacunar infarct ion. This is unchanged from prior exam. Stable punctate calcifications in the right anterior frontal lobe centrum semiovale is again seen. There is mild cerebral volume loss. The ventricular system is normal in size, shape, and position for the degree of sulcal atrophy. There is no evidence of an acute cortical infarction, hemorrhage, mass effect, or midline shift. Dense vascular calcifications are seen in the carotid siphons and in the distal vertebral arteries. Visualized paranasal sinuses are clear. Osseous structures appear intact. CT head is stable compared to prior exam IMPRESSION: 1. No acute intracranial abnormality demonstrated. 2. Stable chronic findings.. 3. Above findings discussed with Dr. Lake in the emergency department on 02/02/2020 at 1352 hour s.
[2020-02-02] MEDS ORDERED: levETIRAcetam In NaCl (Iso-Os) 200 ML ONE (14:05)
[2020-02-02 14:23] LABS: #Eosinphils 0.1 thou/uL (0.0-0.7); #Lymphocytes 1.7 thou/uL (1.20-3.40); #Monocytes 0.5 thou/uL (0.11-0.59); #Neutrophils 6.1 thou/uL (1.40-6.50); %Basophils 0.1 % (0.0-1.0); %Eosinophils 1.8 % (0.0-10.0); %Lymphocytes 19.7 % (21.0-51.0); %Monocytes 5.8 % (0.0-10.0); %Neutrophils 72.6 % (42.0-75.0); Hemoglobin 9.5 g/dL (14.0-18.0); Mean Corpuscular HGB CONC 33.7 g/dL (32.0-36.0); Mean Corpuscular Hemoglobin 31.4 pg (27.0-31.0); Mean Corpuscular Volume 93.4 fL (78.0-98.0); Mean Platelet Volume 8.5 fL (7.4-10.4); Platelet Count 154 thou/uL (130-400); RBC Distribution Width 12.2 % (11.5-14.5); Red Blood Cell (RBC) Count 3.02 mill/uL (4.70-6.10); White Blood Cell (WBC) Count 8.5 thou/uL (4.8-10.8)
[2020-02-02 14:27] LABS: INR-International Normal Ratio 1.1; Prothrombin Time 14.5 sec (12.0-14.7)
[2020-02-02 14:28] LABS: PTT 34.3 sec (22.9-36.1)
--- NOTE | 2020-02-02 14:38 | CT ---
CT ANGIOGRAM NECK WITH CONTRAST CT ANGIOGRAM BRAIN WITH CONTRAST: DATE: 02/02/2020 HISTORY: 59-year-old male with aphasia, acute stroke. gave verbal report to Dr. Lake on 02/02/2020 2:30 PM TECHNIQUE: After IV contrast injection, arterial bolus chasing technique scan performed from AP window to vertex of head. Coronal and sagittal 3-D MIP reconstructions. FINDINGS: No thrombus in M1 segments of bilateral MCAs. No thrombosis, high-grade stenosis, or dissection ident ified in the brachiocephalic, proximal right subclavian, left subclavian, bilateral common carotid, basilar, P1 segments of bilateral operations officer trust department, or A1 or A2 segments of bilateral ACAs. Origins of bilateral vertebral arteries cannot be evaluated because of poor resolution due to combina tion of streak artifact and atherosclerosis. No high-grade stenosis in the rest of the vertebral arteries. Bovine origin of left common carotid artery from the brachiocephalic. Mild calcified plaque at proximal bilateral internal carotid arteries. High density material within what appears to be a large right-sided mid esophageal diverticulum. IMPRESSION: 1) no M1 segment thrombosis. 2) large esophageal diverticulum
--- NOTE | 2020-02-02 14:48 | RAD ---
PORTABLE CHEST: Date: 02/02/2020 HISTORY: Stroke. COMPARISON: 07/27/2019 exam. FINDINGS: Heart size is enlarged. No signs of overt failure or focal infiltrates. IMPRESSION: Cardiomegaly. POS: ANNETTA
[2020-02-02 15:04] LABS: ALT (SGPT) 19 U/L (8-55); AST (SGOT) 14 U/L (5-34); Albumin 3.3 g/dL (3.5-5.0); Alkaline Phosphatase 193 U/L (40-110); Anion Gap 21 mmol/L (10-20); BUN (Urea Nitrogen) 74 mg/dL (8.4-25.7); Bilirubin, Total 0.4 mg/dL (0.2-1.2); CK (CPK) 86 U/L (30-200); Calc. Creatinine Clearance 0 mL/min (70-130); Calcium 6.9 mg/dL (7.8-10.44); Carbon Dioxide 22 mmol/L (22-29); Chloride 92 mmol/L (98-107); Estimated GFR-MDRD 6; Glucose 410 mg/dL (70-105); Potassium 4.5 mmol/L (3.5-5.1); Protein, Total 6.3 g/dL (6.0-8.3); Sodium 130 mmol/L (136-145)
[2020-02-02] MEDS ORDERED: Lorazepam 2 MG/ML VIAL SLOW IVP PRN (16:01)
[2020-02-02] MEDS ORDERED: Senokot S 8.6-50 MG TAB PO PRN (16:01)
[2020-02-02] MEDS ORDERED: Dextrose 5% in Water 1,000 ML IV PRN (16:01)
[2020-02-02] MEDS ORDERED: Guaifenesin DM 100-10/5 ML UDCUP PO PRN (16:01)
[2020-02-02] MEDS ORDERED: Dextrose 50% Abboject 50 ML SYRINGE SLOW IVP PRN (16:01)
[2020-02-02] MEDS ORDERED: Calcium Carbonate 500 MG ChewTAB PO PRN (16:01)
[2020-02-02] MEDS ORDERED: Epoetin (ESRD) 20,000 UNITS/ML SC SCH (16:01)
[2020-02-02] MEDS ORDERED: Bisacodyl 10 MG SUPP PR PRN (16:01)
--- NOTE | 2020-02-02 16:48 | HP ---
REASON FOR ADMISSION: Possible breakthrough seizure, acute metabolic encephalopathy, possible CVA. HISTORY OF PRESENTING ILLNESS: Please note majority of this history is obtained by talking to Dr. Lake, ER physician as the patient is very lethargic at present. He does respond to one or two questions, but falls asleep. EMS was apparently called to home for a diabetic emergency per EMS report. On arrival, his fingerstick glucose was stable. He was confused and was groggy. On arrival here, the patient was taken for a CT brain because of left-sided weakness. In the CT scanner, the patient started to have grand mal seizure like episode for a brief minute or so. He was given Ativan and Keppra 2 g IV one dose. The patient stabilized with above. He has known history of chronic left hemiparesis. He is maintaining airway at present with no difficulty. PAST MEDICAL AND SURGICAL HISTORY: History of end-stage renal disease on hemodialysis, hypertension, dyslipidemia, diabetes mellitus type 2, history of seizure disorder, history of prior CVA with residual left hemiparesis, right below-knee amputation, dialysis access procedures, cholecystectomy, tonsillectomy, left 3rd toe amputation, carpal tunnel surgery. ALLERGIES: ALLERGIC TO PENICILLIN. CURRENT MEDICATIONS: Per prior records, the patient is on, 1. Plavix 75 mg p.o. daily. 2. Epogen 7500 units subcu once weekly. 3. Lipitor 10 mg p.o. at bedtime. 4. Keppra 1000 mg twice daily. 5. Cozaar 25 mg daily. 6. Clonidine 0.2 mg twice daily. 7. Vitamin D3 2000 units p.o. daily. 8. Velphoro 500 mg p.o. twice daily. 9. Sevelamer 800 mg 3 times daily. 10. Prozac 20 mg daily. 11. Lantus 35 units subcu at bedtime. PERSONAL HISTORY: Per prior records, he does not abuse alcohol or drugs. He lives at home with his family. No history of smoking. FAMILY HISTORY: Per prior records, there is history of hypertension, coronary artery disease, and diabetes. REVIEW OF SYSTEMS: Cannot be obtained as the patient is not oriented at present. CODE STATUS: Presumed to be full code. This will be revisited once he is more alert and oriented. PHYSICAL EXAMINATION: GENERAL: The patient is a 59-year-old male, who is currently not in any acute distress. VITAL SIGNS: Blood pressure 158/66, pulse 68 per minute, respiratory rate 16 per minute, saturating 97% on room air, temperature is 99.2 degrees Fahrenheit. NECK: Supple. No elevated JVD. HEENT: Eyes; extraocular muscles intact. Pupils reacting to light. Oral cavity, mucous membranes are dry. No exudates or congestion. CARDIOVASCULAR: S1 and S2 heard. Regular rhythm. RESPIRATORY: Air entry 1+ bilateral. No rales or rhonchi. ABDOMEN: Soft. Bowel sounds heard. No tenderness, rigidity, or guarding. EXTREMITIES: The patient has right BKA. There is edema in the left lower extremity. Peripheral pulses are 1+. No ischemic ulcers or gangrene. CENTRAL NERVOUS SYSTEM: The patient has prior history of left hemiplegia. He is not seen moving his left upper or lower extremity. On repeated prompts, the patient moves right upper and right lower extremity. He can bend his knee and flex his elbow as well. He is pretty lethargic and full neurologic exam cannot be done at present. PSYCHIATRIC: No obvious hallucinations or delusions. IMAGING STUDIES: CT angio of brain done shows no M1 segment thrombosis. Large esophageal diverticulum is seen. A CT brain without contrast done showed no acute intracranial abnormality. There are stable chronic findings. There is a large area of encephalomalacia involving inferior aspect of left cerebellar hemisphere compatible with remote infarct. There is also a low-density area seen in the superior aspect of the left thalamus, again secondary to remote lacunar infarct. No hemorrhage or mass effect seen. Chest x-ray done shows cardiomegaly. LABORATORY DATA: White count of 8, H and H of 9 and 28, platelet count 154 with 72% neutrophils. PT/INR, PTT within normal limits. Serum bicarb 22, BUN 74, creatinine 9.6, serum glucose is 410. AST and ALT within normal limits. Alkaline phosphatase 193, albumin 3.3, prolactin is 27. He has had a blood culture drawn on the 3rd of this month. The preliminary results show no growth. CLINICAL IMPRESSION AND PLAN: The patient will be admitted to stroke unit for likely breakthrough seizure with history of seizure disorder and prior history of cerebrovascular accident. It is unclear if the patient has any new weakness on his left hemiplegia side. Again, he has to wake up and be more alert and oriented for an accurate examination of the left half of his body. He is maintaining airway at present. He had temperature of 99 and in view of him being on dialysis, blood cultures have been obtained. He will not be placed on any antibiotics for now. Does not appear to be septic. We will continue him on Keppra 1000 mg twice daily. Keep him on clear liquid diet. A urine drug screen if he can provide a urine sample, again it is unclear if the patient is totally anuric. We will consult Dr. Garay for Neurology and Dr. Dalal for Nephrology for dialysis. Again, it is unclear when his last dialysis was. He does not appear to be volume overloaded at present. We will continue his Lipitor, clonidine, Plavix, Epogen, Prozac, Cozaar, and sevelamer as before. Job ID: [id number] [facility]
[2020-02-02] MEDS ORDERED: EPOETIN ALFA-EPBX (ESRD) 4,000 UNIT/ML VIAL SC SCH (17:00)
[2020-02-02 18:45] VITALS: BMI 36.9
[2020-02-02] MEDS: Lacosamide 50 mg Tablet PO SCH (22:31)
[2020-02-02] MEDS: Sevelamer Carbonate 800 MG TAB PO SCH (22:31)
[2020-02-02] MEDS: cloNIDine 0.2 MG TAB PO SCH (22:31)
[2020-02-02] MEDS: Atorvastatin Calcium 10 MG TAB PO SCH (22:31)
[2020-02-02] MEDS: Heparin 5,000 UNITS/ML VIAL SC SCH (22:31)
[2020-02-02] MEDS: Sodium Chloride 0.9% 1,000 ML IV SCH (22:32)
[2020-02-02] MEDS: levETIRAcetam In NaCl (Iso-Os) 1,000 MG in Premix Bag 1 BAG IVPB SCH (22:33)
[2020-02-02] MEDS: HumaLOG 300 UNITS/3 ML VIAL SC PRN (22:40)
[2020-02-02] MEDS: Acetaminophen 325 MG TAB PO PRN (23:04)
[2020-02-03 05:04] LABS: #Eosinphils 0.1 thou/uL (0.0-0.7); #Lymphocytes 2.1 thou/uL (1.20-3.40); #Monocytes 0.5 thou/uL (0.11-0.59); #Neutrophils 3.9 thou/uL (1.40-6.50); %Basophils 0.2 % (0.0-1.0); %Eosinophils 2.2 % (0.0-10.0); %Monocytes 6.8 % (0.0-10.0); %Neutrophils 58.8 % (42.0-75.0); Hemoglobin 9.3 g/dL (14.0-18.0); Mean Corpuscular HGB CONC 33.3 g/dL (32.0-36.0); Mean Corpuscular Hemoglobin 31.4 pg (27.0-31.0); Mean Platelet Volume 8.9 fL (7.4-10.4); Platelet Count 158 thou/uL (130-400); RBC Distribution Width 12.4 % (11.5-14.5); Red Blood Cell (RBC) Count 2.97 mill/uL (4.70-6.10); White Blood Cell (WBC) Count 6.6 thou/uL (4.8-10.8)
[2020-02-03 05:26] LABS: Anion Gap 21 mmol/L (10-20); BUN (Urea Nitrogen) 78 mg/dL (8.4-25.7); Calc. Creatinine Clearance 12 mL/min (70-130); Calcium 6.8 mg/dL (7.8-10.44); Carbon Dioxide 20 mmol/L (22-29); Chloride 96 mmol/L (98-107); Estimated GFR-MDRD 5; Glucose 176 mg/dL (70-105); Potassium 4.2 mmol/L (3.5-5.1); Sodium 133 mmol/L (136-145)
[2020-02-03] MEDS: Acetaminophen 325 MG TAB PO PRN (08:44)
--- NOTE | 2020-02-03 10:07 | CON ---
DATE OF CONSULTATION: 02/03/20 HISTORY OF PRESENT ILLNESS: Mr. Hernandez is a 59-year-old male with ESRD-currently on maintenance hemodialysis. He was admitted due to a seizure episode associated with some degree of metabolic encephalopathy. We are being consulted for management of his ESRD. He did miss dialysis yesterday. For that reason, he will undergo hemodialysis today. He is currently on dialysis. No new complaints. The patient denies any chest pain or shortness of breath. REVIEW OF SYSTEMS: Positive for sleepiness. Positive for generalized malaise. No chest pain. No shortness of breath. No nausea. No vomiting. No diarrhea. No constipation. No productive cough. No fever or chills. No abdominal pain. Appetite and energy level are fair. MEDICATIONS: The patient is currently on the following medicine: 1. Tylenol 650 mg q.4 p.r.n. 2. Lipitor 10 mg at bedtime. 3. Tums 1000 mg q.4. 4. Catapres 0.2 mg p.o. b.i.d. 5. Plavix 75 mg once a day. 6. Epogen 7500 units subcu q.7 days. 7. Prozac 20 mg daily. 8. Heparin 5000 units subcu t.i.d. 9. Humalog sliding scale. 10. Humalog (lispro) p.r.n. 11. Vimpat 50 mg p.o. b.i.d. 12. Levetiracetam 1000 mg IV b.i.d. 13. Losartan 25 mg daily. 14. Renvela 800 mg one tablet t.i.d. with meals. PAST MEDICAL HISTORY: 1. ESRD from diabetic nephropathy. 2. Type 2 diabetes mellitus. 3. Status post CVA. 4. Seizure disorder, hypertension, hyperlipidemia, status post metabolic encephalopathy. PAST SURGICAL HISTORY: Status post left toe amputation, status post debridement of right foot ulcer, status post laparoscopic cholecystectomy, status post AV fistula placement, status post cuffed hemodialysis catheter placement, status post right BKA. SOCIAL HISTORY: The patient lives in [place], , several children. 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 Medically disabled. No IV drug abuse. Status post multiple blood transfusion. No smoking. No alcohol. ALLERGIES: NONE. TRAUMA: None. IMMUNIZATIONS: Up-to-date. HOSPITALIZATIONS: Please see past medical history. FAMILY HISTORY: No family history of ESRD. PHYSICAL EXAMINATION: VITAL SIGNS: Blood pressure is noted at 114/63, heart rate 60, respiratory rate 16, temperature 97.7, and O2 saturation 99%. GENERAL: Awake, alert, comfortable, obese, not in distress. SKIN: Adequate turgor. HEENT: Slightly pale conjunctivae. Anicteric sclerae. NECK: No neck mass. No carotid bruits. No JVD. CHEST: No deformities. LUNGS: Clear breath sounds. No wheezing. No crackles. HEART: Normal sinus rhythm. No murmur. No gallops. No rubs. ABDOMEN: Globular, soft, and nontender. No masses. EXTREMITIES: No edema. No deformities. Status post right BKA. NEUROLOGIC: Sleepy, but following commands. Oriented to 3 spheres. Moving all extremities. IMAGING STUDIES: CT scan of the brain, February 02, 2020, showed no acute intracranial abnormality. CT of the [place] of [place]/angiogram shows no segmental thrombus. Chest x-ray of February 02, 2020, shows cardiomegaly with no CHF. LABORATORY DATA: Laboratories of February 03, 2020; white count 6.6, hemoglobin 9.3. Sodium 133, potassium 4.2, chloride 96, carbon dioxide 20, BUN 78, creatinine 10.06, glucose 176, and calcium 6.8. ASSESSMENT AND PLAN: 1. End-stage renal disease, stable. We will continue current hemodialysis regimen. He did miss his dialysis yesterday and for that reason, he will undergo a 3-hour hemodialysis with fluid removal as tolerated. We will then resume him back on his regular Sunday, Sunday, and Sunday dialysis. 2. Anemia, continuing weekly Retacrit with this patient. P.r.n. blood transfusion only for hemoglobin less than 7. 3. Recurrent seizure-currently on antiseizure medications. 4. Hypocalcemia. Start Tums at 1000 mg p.o. t.i.d. Recheck CBC and basic met in a.m. [facility] ID[facility] [id number] [facility]
[2020-02-03] MEDS: Heparin 5,000 UNITS/ML VIAL SC SCH ×3 (10:42→20:36)
[2020-02-03] MEDS: Sevelamer Carbonate 800 MG TAB PO SCH ×3 (10:43→20:35)
--- NOTE | 2020-02-03 12:06 | PDOC.HOSPP ---
- Subjective Encounter Date: 02/03/20 Encounter Time: 10:00 Subjective: no further seizures after hospitalization is awake, responds well to verbal questions is getting HD now moves his left extremities minimally c/o right wrist swelling and pain - Objective Vital Signs & Weight: Vital Signs (12 hours) Temp Pulse Resp BP Pulse Ox 02/03/20 07:34 97.7 F 60 16 114/63 99 02/03/20 04:24 97.3 F L 57 L 14 110/59 L 98 Weight Weight 235 lb 11.2 oz Result Diagrams: 02/03/20 04:49 02/03/20 04:49 Additional Labs: Accuchecks 02/03/20 02/03/20 02/02/20 10:57 06:00 21:51 POC Glucose 123 H 161 H 251 H 02/02/20 14:00 POC Glucose 310 H Hospitalist ROS - Medication Medications: Active Medications Generic Name Dose Route Start Last Admin Trade Name Freq PRN Reason Stop Dose Admin Acetaminophen 650 mg 02/02/20 16:01 02/03/20 08:44 Acetaminophen 325 Mg Tab PO 650 mg Q4H PRN Administration Headache/Fever/Mild Pain (1-3) Atorvastatin Calcium 10 mg 02/02/20 21:00 02/02/20 22:31 Atorvastatin Calcium 10 Mg Tab PO 10 mg HS HERI Administration Epoetin Luciano-epbx 7,500 unit 02/02/20 17:00 02/02/20 22:31 Epoetin Luciano-Epbx (Esrd) 4,000 Unit/Ml Vial SC 7,500 unit Q7D HERI Administration Heparin Sodium (Porcine) 5,000 units 02/02/20 21:00 02/03/20 10:42 Heparin 5,000 Units/Ml Vial SC Not Given TID HERI Sodium Chloride 1,000 mls @ 70 mls/hr 02/02/20 16:01 02/02/20 22:32 Normal Saline 0.9% IV 1,000 mls .[id number] HERI Administration Levetiracetam 1,000 mg/ Device 100 mls @ 200 mls/hr 02/02/20 21:00 02/02/20 22:33 IVPB 100 mls BID HERI Administration Insulin Human Lispro 0 units 02/02/20 16:01 02/02/20 22:40 Humalog 300 Units/3 Ml Vial SC 3 unit .BEDTIME SLIDING SC PRN Administration Bedtime Correctional Scale Lacosamide 50 mg 02/02/20 21:00 02/02/20 22:31 Lacosamide 50 Mg Tablet PO 50 mg BID HERI Administration Sevelamer Carbonate 800 mg 02/02/20 21:00 02/03/20 10:43 Sevelamer Carbonate 800 Mg Tab PO Not Given TID HERI - Exam General Appearance: awake alert Eye: PERRL, anicteric sclera ENT: no oropharyngeal lesions, moist mucosa Neck: supple, no JVD Heart: RRR, no murmur Respiratory: no wheezes, no rales Gastrointestinal: soft, non-tender, non-distended, normal bowel sounds Extremities - other findings: right wrist deformity with swelling and tenderness Neurological: no new deficit, hemiplegia Hosp A/P (1) Breakthrough seizure Code(s): G40.919 - EPILEPSY, UNSP, INTRACTABLE, WITHOUT STATUS EPILEPTICUS Status: Acute (2) Transient ischemic attack Code(s): G45.9 - TRANSIENT CEREBRAL ISCHEMIC ATTACK, UNSPECIFIED Status: Acute (3) Anemia of renal disease Code(s): D63.1 - ANEMIA IN CHRONIC KIDNEY DISEASE Status: Chronic (4) DM2 (diabetes mellitus, type 2) Status: Chronic Qualifiers: Diabetes mellitus jail insulin use: with jail use Diabetes mellitus complication status: with kidney complications Diabetes mellitus complication detail: with chronic kidney disease Chronic kidney disease stage: on chronic dialysis Qualified Code(s): E11.22 - Type 2 diabetes mellitus with diabetic chronic kidney disease; N18.6 - End stage renal disease; Z79.4 - detention (current) use of insulin; Z99.2 - Dependence on renal dialysis (5) Dyslipidemia Code(s): E78.5 - HYPERLIPIDEMIA, UNSPECIFIED Status: Chronic (6) ESRD (end stage renal disease) on dialysis Code(s): N18.6 - END STAGE RENAL DISEASE; Z99.2 - DEPENDENCE ON RENAL DIALYSIS Status: Chronic (7) HTN (hypertension) Code(s): I10 - ESSENTIAL (PRIMARY) HYPERTENSION Status: Chronic Qualifiers: (8) Hemiparesis and other late effects of cerebrovascular accident Code(s): I69.359 - HEMIPLGA FOLLOWING CEREBRAL INFARCTION AFFECTING UNSP SIDE; I69.398 - OTHER SEQUELAE OF CEREBRAL INFARCTION Status: Chronic (9) Obesity (BMI 30-39.9) Code(s): E66.9 - OBESITY, UNSPECIFIED Status: Chronic - Plan is on keppra and vimpat, eeg pending no new weakness to suspect ac cva has chronic left hemiparesis from prior cva right wrist xray to r/o fracture, ?anne PT to mobilize as tolerated with his bka prosthesis chronic anemia with esrd neuro consultation dc plan in am if stable
--- NOTE | 2020-02-03 12:40 | CON ---
NEUROLOGY CONSULTATION DATE OF CONSULTATION: 02/03/2020 REASON FOR CONSULTATION: Breakthrough seizure. HISTORY OF PRESENT ILLNESS: Mr. Rene Hernandez is a 59-year-old male with history significant for prior CVA, breakthrough seizure, chronic kidney disease, presented with altered mental status. EMS was apparently called to his home because of diabetic emergency and confusion. On arrival to the emergency room, the patient was extremely confused and somnolent. He was taken to the CT scan because of subsequent left-sided weakness. In the CT scan, he had a generalized tonic-clonic seizure which lasted for a minute and resolved with Ativan and 2 g of IV Keppra load. The patient does have history of chronic hemiparesis because of the prior stroke. The patient was started back on Keppra 1000 mg twice daily and Vimpat was added for optimal seizure control. No further seizures since admission. The patient has no recollection of the event today. Denies missing any doses of the medication. The patient denies nausea, vomiting, headache, chest pain, abdominal pain, recent illness, recent exposure to COVID, worsening paresthesias or left-sided weakness. REVIEW OF SYSTEMS: All 14 systems were reviewed and were negative except the pertinent positive and negative mentioned in the HPI. PAST MEDICAL HISTORY: End-stage renal disease, on hemodialysis; hypertension; dyslipidemia; diabetes mellitus; epilepsy; prior CVA with residual left hemiparesis. PAST SURGICAL HISTORY: Right below-knee amputation, dialysis access procedures, cholecystectomy, tonsillectomy, left third toe amputation, and carpal tunnel surgery. ALLERGIES: PENICILLIN. HOME MEDICATIONS: 1. Plavix 75 mg daily. 2. Epogen 7500 units subcu once weekly. 3. Lipitor 10 mg p.o. at bedtime. 4. Keppra 1000 mg twice daily. 5. Cozaar 25 mg daily. 6. Clonidine 0.2 mg twice daily. 7. Vitamin D3 of 2000 units p.o. daily. 8. Velphoro 500 mg p.o. twice a day. 9. Sevelamer 800 mg 3 times daily. 10. Prozac 20 mg daily. 11. Lantus 35 units subcutaneously at bedtime. PERSONAL HISTORY: The patient lives at home with his family. Denies smoking, alcohol, or illegal drug use. FAMILY HISTORY: Significant for hypertension, coronary artery disease, and diabetes mellitus. Vital Signs & Weight: Vital Signs (12 hours) Temp Pulse Resp BP Pulse Ox 02/03/20 07:34 97.7 F 60 16 114/63 99 02/03/20 04:24 97.3 F L 57 L 14 110/59 L 98 Weight Weight 235 lb 11.2 oz Additional Labs: Accuchecks 02/03/20 02/03/20 02/02/20 10:57 06:00 21:51 POC Glucose 123 H 161 H 251 H 02/02/20 14:00 POC Glucose 310 H Active Medications Generic Name Dose Route Start Last Admin Trade Name Freq PRN Reason Stop Dose Admin Acetaminophen 650 mg 02/02/20 16:01 02/03/20 08:44 Acetaminophen 325 Mg Tab PO 650 mg Q4H PRN Administration Headache/Fever/Mild Pain (1-3) Atorvastatin Calcium 10 mg 02/02/20 21:00 02/02/20 22:31 Atorvastatin Calcium 10 Mg Tab PO 10 mg HS HERI Administration Epoetin Luciano-epbx 7,500 unit 02/02/20 17:00 02/02/20 22:31 Epoetin Luciano-Epbx (Esrd) 4,000 Unit/Ml Vial SC 7,500 unit Q7D HERI Administration Heparin Sodium (Porcine) 5,000 units 02/02/20 21:00 02/03/20 10:42 Heparin 5,000 Units/Ml Vial SC Not Given TID HERI Sodium Chloride 1,000 mls @ 70 mls/hr 02/02/20 16:01 02/02/20 22:32 Normal Saline 0.9% IV 1,000 mls .[id number] HERI Administration Levetiracetam 1,000 mg/ Device 100 mls @ 200 mls/hr 02/02/20 21:00 02/02/20 22:33 IVPB 100 mls BID HERI Administration Insulin Human Lispro 0 units 02/02/20 16:01 02/02/20 22:40 Humalog 300 Units/3 Ml Vial SC 3 unit .BEDTIME SLIDING SC PRN Administration Bedtime Correctional Scale Lacosamide 50 mg 02/02/20 21:00 02/02/20 22:31 Lacosamide 50 Mg Tablet PO 50 mg BID HERI Administration Sevelamer Carbonate 800 mg 02/02/20 21:00 02/03/20 10:43 Sevelamer Carbonate 800 Mg Tab PO Not Given TID HERI - Exam General Appearance: awake alert Eye: PERRL, anicteric sclera ENT: no oropharyngeal lesions, moist mucosa Neck: supple, no JVD Heart: RRR, no murmur Respiratory: no wheezes, no rales Gastrointestinal: soft, non-tender, non-distended, normal bowel sounds Extremities - other findings: right wrist deformity with swelling and tenderness Neurological: Mental status; the patient is alert and oriented to person and place, but not time and month. Cranial nerves 2 through 12 intact except 7, mild left facial droop. Motor; muscle tone and bulk are normal. Strength; 5/5 on the right, 3/5 on the left. Cerebellar; finger-nose testing unable to perform on the left secondary to weakness. Sensory; withdraws to nailbed pressure bilaterally. He does have left below-knee amputation. Gait deferred due to the patient's safety reason. DIAGNOSTIC STUDIES: Data reviewed. I reviewed the CT angiogram of the brain, which did not reveal any hemodynamically significant stenosis or no A1 segment stenosis. CT scan of the head did not reveal acute intracranial pathology. There is large area of encephalomalacia involving the left cerebellar hemisphere, compatible with remote infarct and low-density area seen in the superior aspect of the left thalamus, remote infarct. Chest x-ray shows cardiomegaly. Labs show CBC and CMP were essentially unremarkable. 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 principal insulin use: with skilled nursing use Diabetes mellitus complication status: with kidney complications Diabetes mellitus complication detail: with chronic kidney disease Chronic kidney disease stage: on chronic dialysis Qualified Code(s): E11.22 - Type 2 diabetes mellitus with diabetic chronic kidney disease; N18.6 - End stage renal disease; Z79.4 - custodial (current) use of insulin; Z99.2 - Dependence on renal dialysis (5) Dyslipidemia Code(s): E78.5 - HYPERLIPIDEMIA, UNSPECIFIED Status: Chronic (6) ESRD (end stage renal disease) on dialysis Code(s): N18.6 - END STAGE RENAL DISEASE; Z99.2 - DEPENDENCE ON RENAL DIALYSIS Status: Chronic (7) HTN (hypertension) Code(s): I10 - ESSENTIAL (PRIMARY) HYPERTENSION Status: Chronic Qualifiers: (8) Hemiparesis and other late effects of cerebrovascular accident Code(s): I69.359 - HEMIPLGA FOLLOWING CEREBRAL INFARCTION AFFECTING UNSP SIDE; I69.398 - OTHER SEQUELAE OF CEREBRAL INFARCTION Status: Chronic (9) Obesity (BMI 30-39.9) Mr. Rene Hernandez is a 59-year-old male, admitted for breakthrough seizures, most likely provoked seizure in the setting of metabolic encephalopathy. The patient has been compliant with Keppra 1000 mg twice daily. Consider adding Vimpat 50 mg p.o. b.i.d. for optimal control. Consider EEG to assess cortical irritability, which may require more adjustment of medication. Neuro checks every 4 hours. Observe seizure precautions. Ativan 2 mg IV for seizure greater than 2 minutes. Continue home medications. Continue aspirin and high-intensity statin for secondary stroke prevention. Continue medical management per primary team and Nephrology. We will continue to follow. Thank you for the consult. Job ID: [id number] [facility]
--- NOTE | 2020-02-03 12:54 | CT ---
CT ANGIOGRAM NECK WITH CONTRAST CT ANGIOGRAM BRAIN WITH CONTRAST: DATE: 02/02/2020 HISTORY: 59-year-old male with aphasia, acute stroke. gave verbal report to Dr. Lake on 02/02/2020 2:30 PM TECHNIQUE: After IV contrast injection, arterial bolus chasing technique scan performed from AP window to vertex of head. Coronal and sagittal 3-D MIP reconstructions. FINDINGS: No thrombus in M1 segments of bilateral MCAs. No thrombosis, high-grade stenosis, or dissection ident ified in the brachiocephalic, proximal right subclavian, left subclavian, bilateral common carotid, basilar, P1 segments of bilateral packaging design engineer, or A1 or A2 segments of bilateral ACAs. Origins of bilateral vertebral arteries cannot be evaluated because of poor resolution due to combina tion of streak artifact and atherosclerosis. No high-grade stenosis in the rest of the vertebral arteries. Bovine origin of left common carotid artery from the brachiocephalic. Mild calcified plaque at proximal bilateral internal carotid arteries. High density material within what appears to be a large right-sided mid esophageal diverticulum. IMPRESSION: 1) no M1 segment thrombosis. 2) large esophageal diverticulum Transcribed Date/Time: 02/03/2020 12:53 PM
[2020-02-03] MEDS: Clopidogrel Bisulfate 75 MG TAB PO SCH (13:57)
[2020-02-03] MEDS: FLUoxetine HCl 20 MG CAP PO SCH (13:57)
[2020-02-03] MEDS: Lacosamide 50 mg Tablet PO SCH ×2 (13:57→20:35)
[2020-02-03] MEDS: Losartan 25 MG TAB PO SCH (13:58)
[2020-02-03] MEDS: levETIRAcetam In NaCl (Iso-Os) 1,000 MG in Premix Bag 1 BAG IVPB SCH ×2 (13:58→20:35)
--- NOTE | 2020-02-03 14:56 | RAD ---
RIGHT WRIST THREE VIEWS: 02/03/20 HISTORY: Rule out fracture, swelling and tenderness. Arthritic changes of the first carpometacarpal joint space are identified. The erosive change along t he distal radius is unchanged since the 01/31/20 exam. Atherosclerotic changes are seen within the ve ssels. Soft tissue swelling is seen at the metacarpophalangeal joint of the little finger. IMPRESSION: Arthritic change of the wrist. No acute process. POS: AH
--- NOTE | 2020-02-03 14:57 | RAD ---
Exam: XR Forearm Rt 2 View STANDARD HISTORY: Swelling and tenderness right forearm. COMPARISON: Views right wrist on 01/31/2020 FINDINGS: As noted on views of the wrist, there are erosive changes with sclerotic margins along the distal asp ect of the radius near the radial styloid process unchanged from prior study and suggesting chronic finding. No fracture or dislocation is seen involving the right forearm. Prominent vascular calcifica tions are seen. There is a peripheral intravenous catheter overlying the medial aspect of the mid forearm. IMPRESSION: 1. Chronic erosive changes involving the distal right radius. 2. No acute osseous abnormality.
[2020-02-03] MEDS: cloNIDine 0.2 MG TAB PO SCH (15:28)
--- NOTE | 2020-02-03 16:09 | CON ---
DATE OF CONSULTATION: HISTORY OF PRESENT ILLNESS: The patient is a 59-year-old gentleman with history of multiple CVAs, who presented with seizures and was noted to have a slow heart rate. The patient has a previous history of multiple cerebrovascular accident. He also has history of a hemorrhagic CVA. The patient has presented with chest discomfort in July of 2017. At that time, he underwent a cardiac evaluation including a Cardiolite stress test. He was found to have normal left ventricular ejection fraction of 56% with no evidence of ischemia. The patient was in his usual state of health when he was admitted with a seizure. The patient denied having any chest pain or dyspnea. The patient denied any lightheadedness or syncope. PAST MEDICAL HISTORY: 1. CVA. 2. Hypertension. 3. Diabetes mellitus. 4. End-stage renal disease. 5. Peripheral vascular disease. PAST SURGICAL HISTORY: Right [id number] amputation,cholecystectomy, tonsillectomy, and carpal tunnel syndrome. FAMILY HISTORY: Positive family history of coronary artery disease. MEDICATIONS: See nursing list. ALLERGIES: PENICILLIN, PIPERACILLIN/TAZOBACTAM, AND ZOSYN. PHYSICAL EXAMINATION: GENERAL: A well-developed gentleman, in no acute distress. VITAL SIGNS: Blood pressure 114/63. NECK: No jugular venous distention. LUNGS: Clear to auscultation. HEART: Regular rate and rhythm with a normal S1 and S2. ABDOMEN: Distended. EXTREMITIES: Status post right BKA. LABORATORY RESULTS: Sodium 130, potassium 4.5, chloride 92, bicarbonate 22, BUN 74, and creatinine was 9.6. Troponin was 0.01. White blood cell count of 6.6, hemoglobin 9.3, hematocrit 27.9, and platelets are 159. EKG revealed sinus bradycardia with first-degree AV block. Prolonged QT interval. integrity director revealed a 2-second pause. IMPRESSION: 1. Prolonged sinus pauses. 2. History of multiple cerebrovascular accidents. 3. End-stage renal disease. 4. Seizure disorder. 5. Hypertension. 6. Diabetes mellitus. 7. Dyslipidemia. 8. Peripheral vascular disease. This gentleman has had prolonged pauses. From a cardiac standpoint, he should avoid clonidine as well as any beta-blockers. We will follow this patient with you through his hospitalization. Job ID: [id number] [facility]
[2020-02-03 16:26] LABS: SARS-CoV-2 MS2 Positive; SARS-CoV-2 N Gene Negative; SARS-CoV-2 S Gene Negative; SARS-CoV-2 by NAA Not Detected (NotDetected); SARS-CoV-2 orf1ab Negative
[2020-02-03] MEDS: Sodium Chloride 0.9% 1,000 ML IV SCH (17:25)
[2020-02-03] MEDS ORDERED: Nitroglycerin 2% Ointment 1 INCH/1 GM Packet TOP PRN (19:00)
[2020-02-03] MEDS: Atorvastatin Calcium 10 MG TAB PO SCH (20:35)
[2020-02-03] MEDS: Calcium Carbonate 500 MG ChewTAB PO SCH (20:35)
[2020-02-04 04:32] LABS: #Eosinphils 0.1 thou/uL (0.0-0.7); #Lymphocytes 1.5 thou/uL (1.20-3.40); #Monocytes 0.3 thou/uL (0.11-0.59); #Neutrophils 3.7 thou/uL (1.40-6.50); %Basophils 0.7 % (0.0-1.0); %Eosinophils 2.5 % (0.0-10.0); %Neutrophils 63.9 % (42.0-75.0); Mean Corpuscular HGB CONC 33.2 g/dL (32.0-36.0); Mean Corpuscular Volume 93.4 fL (78.0-98.0); Mean Platelet Volume 8.4 fL (7.4-10.4); Platelet Count 179 thou/uL (130-400); RBC Distribution Width 12.5 % (11.5-14.5); Red Blood Cell (RBC) Count 3.22 mill/uL (4.70-6.10); White Blood Cell (WBC) Count 5.7 thou/uL (4.8-10.8)
[2020-02-04 05:42] LABS: Anion Gap 19 mmol/L (10-20); BUN (Urea Nitrogen) 47 mg/dL (8.4-25.7); Calc. Creatinine Clearance 17 mL/min (70-130); Calcium 7.3 mg/dL (7.8-10.44); Carbon Dioxide 21 mmol/L (22-29); Chloride 99 mmol/L (98-107); Estimated GFR-MDRD 8; Glucose 169 mg/dL (70-105); Potassium 4.3 mmol/L (3.5-5.1); Sodium 135 mmol/L (136-145)
[2020-02-04] MEDS: HumaLOG 300 UNITS/3 ML VIAL SC PRN ×2 (06:19→21:27)
--- NOTE | 2020-02-04 07:00 | EKG ---
Test Reason : Blood Pressure : / mmHG Vent. Rate : 059 BPM Atrial Rate : 059 BPM P-R Int : 298 ms QRS Dur : 112 ms QT Int : 498 ms P-R-T Axes : 080 011 038 degrees QTc Int : 493 ms Sinus bradycardia with 1st degree A-V block Prolonged QT Abnormal ECG No previous ECGs available Confirmed by DR. Fannie RECINOS (3) on 02/04/2020 7:00:19 AM Referred By: LIOR Confirmed By:DR. Fannie RECINOS
--- NOTE | 2020-02-04 08:33 | EEG ---
DATE OF SERVICE: 02/03/2020 ATTENDING PHYSICIAN: Romina Garay MD. This EEG was performed using 24-channel RisparmioSuper video digital EEG machine with 24- disk electrodes. This was an extended 2 hours 6 minutes of inpatient video EEG recording. Digital analysis of the EEG was done for spike and seizure detection, which revealed no abnormalities. BACKGROUND: There is a nonsustained posterior background rhythm of 8-8.5 Hz Minimal reactivity seen with eye opening and closure. HYPERVENTILATION: Not performed. PHOTIC STIMULATION: No significant response seen with photic stimulation. SLEEP: Drowsiness and sleep are observed. ELECTROENCEPHALOGRAM DIAGNOSES: 1. Occasional irregular theta activity is seen during the recording intermixed with sharp waves. 2. Nonsustained posterior background rhythm. CLINICAL INTERPRETATION: This EEG is consistent with interictal expression of partial epilepsy in the setting of mild to moderate generalized nonspecific cerebral dysfunction. No ictal discharges are seen during the recording. [facility] [id number] [facility]
--- NOTE | 2020-02-04 08:40 | PRG ---
DATE OF SERVICE: 02/04/2020 SUBJECTIVE: Mr. Hernandez is a 59-year-old male with ESRD and admitted for seizures. His antiseizure medication has been adjusted. We are following him up for management of his ESRD. He is currently undergoing hemodialysis. Fluid removal is being tolerated. No complaints of chest pain or shortness of breath. OBJECTIVE: VITAL SIGNS: Blood pressure 149/66, heart rate is 63, respiratory rate 16, temperature 98.1, O2 saturation 97%. GENERAL: The patient is awake, alert, comfortable, not in distress. SKIN: Adequate turgor. HEENT: He has pinkish conjunctivae. Anicteric sclerae. No neck mass. No carotid bruits. No JVD. CHEST: No deformities. LUNGS: Clear breath sounds. HEART: Normal sinus rhythm. No murmurs. No gallops. No rubs. ABDOMEN: Globular, soft, nontender. No masses. EXTREMITIES: The patient is status post leg amputation. MEDICATIONS: February 04, 2020, were reviewed. LABORATORY DATA: February 04, 2020; white count 5.7, hemoglobin 10. Sodium 135, potassium 4.3, chloride 99, carbon dioxide 21, BUN 47, creatinine 7.24, and calcium 7.3. ASSESSMENT AND PLAN: 1. End-stage renal disease, stable, undergoing hemodialysis. Fluid removal as tolerated by the patient. We will plan to do a 4-hour hemodialysis regimen with this patient. 2. Anemia, continue current weekly Epogen regimen. 3. Seizure disorder - currently, on antiseizure medications. We will recheck CBC and basic metabolic panel in a.m. Job ID: [id number]
[2020-02-04] MEDS: Heparin 5,000 UNITS/ML VIAL SC SCH ×3 (10:06→20:25)
[2020-02-04] MEDS: Sevelamer Carbonate 800 MG TAB PO SCH ×3 (10:06→20:25)
--- NOTE | 2020-02-04 12:32 | PDOC.HOSPP ---
- Subjective Encounter Date: 02/04/20 Encounter Time: 10:30 Subjective: is getting hemodialysis right wrist pain is better no sob or chest pain or palpitations - Objective Vital Signs & Weight: Vital Signs (12 hours) Temp Pulse Resp BP Pulse Ox 02/04/20 11:25 97.9 F 60 11 L 156/65 H 100 02/04/20 08:06 98.1 F 63 16 149/66 H 97 02/04/20 04:00 98.0 F 69 16 151/72 H 99 Weight Weight 235 lb 11.2 oz I&O: 02/03/20 02/04/20 02/05/20 06:59 06:59 06:59 Intake Total 1335 Balance 1335 Result Diagrams: 02/04/20 04:13 02/04/20 04:13 Additional Labs: Accuchecks 02/04/20 02/04/20 02/03/20 11:03 05:47 17:01 POC Glucose 102 H 160 H 118 H Hospitalist ROS - Medication Medications: Active Medications Generic Name Dose Route Start Last Admin Trade Name Freq PRN Reason Stop Dose Admin Acetaminophen 650 mg 02/02/20 16:01 02/03/20 08:44 Acetaminophen 325 Mg Tab PO 650 mg Q4H PRN Administration Headache/Fever/Mild Pain (1-3) Atorvastatin Calcium 10 mg 02/02/20 21:00 02/03/20 20:35 Atorvastatin Calcium 10 Mg Tab PO 10 mg HS HERI Administration Calcium Carbonate 1,000 mg 02/03/20 21:00 02/03/20 20:35 Calcium Carbonate 500 Mg Chewtab PO 1,000 mg BID HERI Administration Clopidogrel Bisulfate 75 mg 02/03/20 09:00 02/03/20 13:57 Clopidogrel Bisulfate 75 Mg Tab PO 75 mg DAILY HERI Administration Epoetin Luciano-epbx 7,500 unit 02/02/20 17:00 02/02/20 22:31 Epoetin Luciano-Epbx (Esrd) 4,000 Unit/Ml Vial SC 7,500 unit Q7D HERI Administration Fluoxetine HCl 20 mg 02/03/20 09:00 02/03/20 13:57 Fluoxetine Hcl 20 Mg Cap PO 20 mg DAILY HERI Administration Heparin Sodium (Porcine) 5,000 units 02/02/20 21:00 02/04/20 10:06 Heparin 5,000 Units/Ml Vial SC Not Given TID HERI Sodium Chloride 1,000 mls @ 70 mls/hr 02/02/20 16:01 02/03/20 17:25 Normal Saline 0.9% IV 1,000 mls .[id number] HERI Administration Levetiracetam 1,000 mg/ Device 100 mls @ 200 mls/hr 02/02/20 21:00 02/03/20 20:35 IVPB 100 mls BID HERI Administration Insulin Human Lispro 0 units 02/02/20 16:01 02/04/20 06:19 Humalog 300 Units/3 Ml Vial SC 2 unit .MODERATE SLIDING SC PRN Administration Moderate Correctional Scale Insulin Human Lispro 0 units 02/02/20 16:01 02/02/20 22:40 Humalog 300 Units/3 Ml Vial SC 3 unit .BEDTIME SLIDING SC PRN Administration Bedtime Correctional Scale Lacosamide 50 mg 02/02/20 21:00 02/03/20 20:35 Lacosamide 50 Mg Tablet PO 50 mg BID HERI Administration Losartan Potassium 25 mg 02/03/20 09:00 02/03/20 13:58 Losartan 25 Mg Tab PO 25 mg DAILY HERI Administration Sevelamer Carbonate 800 mg 02/02/20 21:00 02/04/20 10:06 Sevelamer Carbonate 800 Mg Tab PO Not Given TID HERI - Exam General Appearance: awake alert Eye: PERRL, anicteric sclera ENT: no oropharyngeal lesions, moist mucosa Neck: supple, no JVD Heart: RRR, no murmur Respiratory: no wheezes, no rales Gastrointestinal: soft, non-tender, non-distended, normal bowel sounds Extremities: no cyanosis, no edema Neurological: cranial nerve grossly intact, hemiplegia Psychiatric: normal affect, A&O x 3 Hosp A/P (1) Breakthrough seizure Code(s): G40.919 - EPILEPSY, UNSP, INTRACTABLE, WITHOUT STATUS EPILEPTICUS Status: Acute (2) Transient ischemic attack Code(s): G45.9 - TRANSIENT CEREBRAL ISCHEMIC ATTACK, UNSPECIFIED Status: Acute (3) Anemia of renal disease Code(s): D63.1 - ANEMIA IN CHRONIC KIDNEY DISEASE Status: Chronic (4) DM2 (diabetes mellitus, type 2) Status: Chronic Qualifiers: Diabetes mellitus intermission coordinator insulin use: with fpc use Diabetes mellitus complication status: with kidney complications Diabetes mellitus complication detail: with chronic kidney disease Chronic kidney disease stage: on chronic dialysis Qualified Code(s): E11.22 - Type 2 diabetes mellitus with diabetic chronic kidney disease; N18.6 - End stage renal disease; 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; Z99.2 - Dependence on renal dialysis (5) Dyslipidemia Code(s): E78.5 - HYPERLIPIDEMIA, UNSPECIFIED Status: Chronic (6) ESRD (end stage renal disease) on dialysis Code(s): N18.6 - END STAGE RENAL DISEASE; Z99.2 - DEPENDENCE ON RENAL DIALYSIS Status: Chronic (7) HTN (hypertension) Code(s): I10 - ESSENTIAL (PRIMARY) HYPERTENSION Status: Chronic Qualifiers: (8) Hemiparesis and other late effects of cerebrovascular accident Code(s): I69.359 - HEMIPLGA FOLLOWING CEREBRAL INFARCTION AFFECTING UNSP SIDE; I69.398 - OTHER SEQUELAE OF CEREBRAL INFARCTION Status: Chronic (9) Obesity (BMI 30-39.9) Code(s): E66.9 - OBESITY, UNSPECIFIED Status: Chronic - Plan is on keppra and vimpat, no further seizures. no new weakness to suspect ac cva has chronic left hemiparesis from prior cva right wrist xray shows distal radius erosion, for MRI wo contrast to r/o osteomyelitis. PT to mobilize as tolerated with his bka prosthesis chronic anemia with esrd neuro consultation dc plan in am if stable
[2020-02-04] MEDS: Sodium Chloride 0.9% 1,000 ML IV SCH (12:40)
[2020-02-04] MEDS: Calcium Carbonate 500 MG ChewTAB PO SCH ×2 (12:53→20:25)
[2020-02-04] MEDS: Losartan 25 MG TAB PO SCH (12:54)
[2020-02-04] MEDS: FLUoxetine HCl 20 MG CAP PO SCH (12:54)
[2020-02-04] MEDS: Clopidogrel Bisulfate 75 MG TAB PO SCH (12:54)
[2020-02-04] MEDS: Lacosamide 50 mg Tablet PO SCH ×2 (12:55→20:25)
[2020-02-04] MEDS: levETIRAcetam In NaCl (Iso-Os) 1,000 MG in Premix Bag 1 BAG IVPB SCH (12:55)
--- NOTE | 2020-02-04 15:48 | PDOC.NEUPN ---
- Subjective Encounter Date: 02/04/20 Subjective: Mr. Hernandez feels better today and he has no further seizures since admission. - Objective Vital Signs & Weight: Vital Signs (12 hours) Temp Pulse Resp BP Pulse Ox 02/04/20 15:42 98.2 F 67 16 161/70 H 95 02/04/20 12:55 98 F 64 16 166/81 H 99 02/04/20 11:25 97.9 F 60 11 L 156/65 H 100 02/04/20 08:06 98.1 F 63 16 149/66 H 97 02/04/20 04:00 98.0 F 69 16 151/72 H 99 Weight Weight 235 lb 11.2 oz I&O: 02/03/20 02/04/20 02/05/20 06:59 06:59 06:59 Intake Total 1335 Balance 1335 Result Diagrams: 02/04/20 04:13 02/04/20 04:13 Additional Labs: Accuchecks 02/04/20 02/04/20 02/03/20 11:03 05:47 17:01 POC Glucose 102 H 160 H 118 H Radiology Reviewed by me: Yes EKG Reviewed by me: Yes ROS - Review of Systems Constitutional: denies: fever, chills, sweats, weakness, malaise, other Eyes: denies: pain, vision change, conjunctivae inflammation, eyelid inflammation, redness, other ENT: denies: ear pain, ear discharge, nose pain, nose discharge, nose congestion, mouth pain, mouth swelling, throat pain, throat swelling, other Respiratory: denies: cough, dry, shortness of breath, hemoptysis, SOB with excertion, pleuritic pain, sputum, wheezing, other Gastrointestinal: denies: nausea, vomiting, abdominal pain, diarrhea, constipation, melena, hematochezia, other Genitourinary: denies: dysuria, frequency, incontinence, hematuria, retention, other Musculoskeletal: denies: neck pain, shoulder pain, arm pain, back pain, hand pain, leg pain, foot pain, other Neurological: reports: weakness, numbness, incoordination, confusion, seizures. denies: change in speech, other - Medication Medications: Active Medications Generic Name Dose Route Start Last Admin Trade Name Freq PRN Reason Stop Dose Admin Acetaminophen 650 mg 02/02/20 16:01 02/03/20 08:44 Acetaminophen 325 Mg Tab PO 650 mg Q4H PRN Administration Headache/Fever/Mild Pain (1-3) Atorvastatin Calcium 10 mg 02/02/20 21:00 02/03/20 20:35 Atorvastatin Calcium 10 Mg Tab PO 10 mg HS HERI Administration Calcium Carbonate 1,000 mg 02/03/20 21:00 02/04/20 12:53 Calcium Carbonate 500 Mg Chewtab PO 1,000 mg BID HERI Administration Clopidogrel Bisulfate 75 mg 02/03/20 09:00 02/04/20 12:54 Clopidogrel Bisulfate 75 Mg Tab PO 75 mg DAILY HERI Administration Epoetin Luciano-epbx 7,500 unit 02/02/20 17:00 02/02/20 22:31 Epoetin Lucinao-Epbx (Esrd) 4,000 Unit/Ml Vial SC 7,500 unit Q7D HERI Administration Fluoxetine HCl 20 mg 02/03/20 09:00 02/04/20 12:54 Fluoxetine Hcl 20 Mg Cap PO 20 mg DAILY HERI Administration Heparin Sodium (Porcine) 5,000 units 02/02/20 21:00 02/04/20 14:19 Heparin 5,000 Units/Ml Vial SC 5,000 units TID HERI Administration Insulin Human Lispro 0 units 02/02/20 16:01 02/04/20 06:19 Humalog 300 Units/3 Ml Vial SC 2 unit .MODERATE SLIDING SC PRN Administration Moderate Correctional Scale Insulin Human Lispro 0 units 02/02/20 16:01 02/02/20 22:40 Humalog 300 Units/3 Ml Vial SC 3 unit .BEDTIME SLIDING SC PRN Administration Bedtime Correctional Scale Lacosamide 50 mg 02/02/20 21:00 02/04/20 12:55 Lacosamide 50 Mg Tablet PO 50 mg BID HERI Administration Losartan Potassium 25 mg 02/03/20 09:00 02/04/20 12:54 Losartan 25 Mg Tab PO 25 mg DAILY HERI Administration Sevelamer Carbonate 800 mg 02/02/20 21:00 02/04/20 14:17 Sevelamer Carbonate 800 Mg Tab PO 800 mg TID HERI Administration - Exam General Appearance: awake alert Eye: PERRL ENT: normocephalic atraumatic Neck: supple Respiratory: CTAB Cardiovascular: RRR Gastrointestinal: soft Extremities: no cyanosis Skin: normal turgor Neurological: no new deficit, facial droop, hemiplegia Musculoskeletal: no muscle wasting PSYCH: normal affect, normal behavior, A&O x 3 Results - Labs Result Diagrams: 02/04/20 04:13 02/04/20 04:13 Lab results: WBC 5.7 thou/uL (4.8-10.8) 02/04/20 04:13 Hgb 10.0 g/dL (14.0-18.0) L 02/04/20 04:13 Hct 30.0 % (42.0-52.0) L 02/04/20 04:13 MCV 93.4 fL (78.0-98.0) 02/04/20 04:13 Plt Count 179 thou/uL (130-400) 02/04/20 04:13 Neutrophils % 63.9 % (42.0-75.0) 02/04/20 04:13 Sodium 135 mmol/L (136-145) L 02/04/20 04:13 Potassium 4.3 mmol/L (3.5-5.1) 02/04/20 04:13 Chloride 99 mmol/L (98-107) 02/04/20 04:13 Carbon Dioxide 21 mmol/L (22-29) L 02/04/20 04:13 BUN 47 mg/dL (8.4-25.7) H 02/04/20 04:13 Creatinine 7.24 mg/dL (0.7-1.3) H 02/04/20 04:13 Glucose 169 mg/dL (70-105) H 02/04/20 04:13 Calcium 7.3 mg/dL (7.8-10.44) L 02/04/20 04:13 Total Bilirubin 0.4 mg/dL (0.2-1.2) 02/02/20 14:07 AST 14 U/L (5-34) 02/02/20 14:07 ALT 19 U/L (8-55) 02/02/20 14:07 Alkaline Phosphatase 193 U/L (40-110) H 02/02/20 14:07 Creatine Kinase 86 U/L (30-200) 02/02/20 14:07 Troponin I Less than 0.010 ng/mL (< 0.028) 02/02/20 14:07 Serum Total Protein 6.3 g/dL (6.0-8.3) 02/02/20 14:07 Albumin 3.3 g/dL (3.5-5.0) L 02/02/20 14:07 PN A/P (1) Breakthrough seizure Code(s): G40.919 - EPILEPSY, UNSP, INTRACTABLE, WITHOUT STATUS EPILEPTICUS Status: Acute (2) Encephalopathy acute Code(s): G93.40 - ENCEPHALOPATHY, UNSPECIFIED Status: Acute (3) Hypertensive urgency Code(s): I16.0 - HYPERTENSIVE URGENCY Status: Acute (4) Dyslipidemia Code(s): E78.5 - HYPERLIPIDEMIA, UNSPECIFIED Status: Chronic (5) ESRD (end stage renal disease) on dialysis Code(s): N18.6 - END STAGE RENAL DISEASE; Z99.2 - DEPENDENCE ON RENAL DIALYSIS Status: Chronic (6) HTN (hypertension) Code(s): I10 - ESSENTIAL (PRIMARY) HYPERTENSION Status: Chronic Qualifiers: (7) Hemiparesis and other late effects of cerebrovascular accident Code(s): I69.359 - HEMIPLGA FOLLOWING CEREBRAL INFARCTION AFFECTING UNSP SIDE; I69.398 - OTHER SEQUELAE OF CEREBRAL INFARCTION Status: Chronic (8) Obesity (BMI 30-39.9) Code(s): E66.9 - OBESITY, UNSPECIFIED Status: Chronic (9) Secondary hyperparathyroidism of renal origin Code(s): N25.81 - SECONDARY HYPERPARATHYROIDISM OF RENAL ORIGIN Status: Chronic - Plan Daily Plan: PT/OT, speech therapy, DVT proph w/SCDs 59-year-old male with history significant for end-stage renal disease and prior stroke with residual focal deficits and seizure disorder presented with breakthrough seizures. CT reviewed and was negative for acute intracranial pathology but did show evidence of prior stroke. EEG reviewed and was consistent with partial epilepsy. No recurring seizures seen during the recording. Vimpat added to the regimen 50 mg p.o. twice daily. Continue Keppra thousand milligrams p.o. twice daily. Observe seizure precautions Ativan 2 mg IV for seizure greater than 2 minutes Neurochecks every 4 hours Continue home medications Continue medical management per primary team and nephrology. Plan discussed in detail with the patient, primary attending Dr. Nelson and during MDR rounds.
--- NOTE | 2020-02-04 17:03 | MRI ---
MR OF THE RIGHT WRIST WITHOUT CONTRAST: 02/04/20 COMPARISON: Prior right wrist radiograph dated 02/03/20 and 01/31/20. FINDINGS: There is lymphedema involving the left wrist and dorsal and ulnar aspects of the left forearm. There is susceptibility artifact within the soft tissues overlying the ulnar aspect of the distal forearm w hich may reflect a medicinal ointment from a wound. There is no joint effusion in the wrist carpus. T here is a sclerotic periarticular erosive change involving the radial styloid. No additional erosive change is grossly evident. Nonspecific marrow edema involving the long finger metacarpal head/neck re gion as well as the shaft. The scapholunate and lunatotriquetral ligaments appear intact. The carpal tunnel contents appear within normal limits. There is some mild fluid distention involving the fourt h and fifth extensor compartments. There is mild ECU tendinosis. The SCR and SCU tendons appear intac t. IMPRESSION: Nonspecific edema involving the long finger metacarpal. This may reflect an area of reactive osteitis . The reported wound was reported near the fifth digit MCP knuckle. Osteomyelitis of the long finger metacarpal is felt to be unlikely. Erosive change involving the radial styloid may reflect sequela of prior gout or trauma. No large janae nt effusion is evident. There is nonspecific edema versus cellulitis of the hand and forearm. There is mild ECU tendinosis. There is mild reactive tenosynovitis of the fourth and fifth dorsal ext ensor compartments. POS: BH
[2020-02-04] MEDS: Atorvastatin Calcium 10 MG TAB PO SCH (20:26)
[2020-02-04] MEDS: levETIRAcetam 500 MG TAB PO SCH (20:26)
[2020-02-05 06:32] LABS: #Eosinphils 0.2 thou/uL (0.0-0.7); #Lymphocytes 1.8 thou/uL (1.20-3.40); #Monocytes 0.5 thou/uL (0.11-0.59); #Neutrophils 3.5 thou/uL (1.40-6.50); %Basophils 0.5 % (0.0-1.0); %Eosinophils 2.6 % (0.0-10.0); %Lymphocytes 29.9 % (21.0-51.0); %Monocytes 8.2 % (0.0-10.0); %Neutrophils 58.9 % (42.0-75.0); Hemoglobin 10.9 g/dL (14.0-18.0); Mean Corpuscular HGB CONC 33.3 g/dL (32.0-36.0); Mean Corpuscular Hemoglobin 31.3 pg (27.0-31.0); Mean Platelet Volume 8.1 fL (7.4-10.4); Platelet Count 192 thou/uL (130-400); RBC Distribution Width 12.3 % (11.5-14.5); Red Blood Cell (RBC) Count 3.48 mill/uL (4.70-6.10)
[2020-02-05 08:49] LABS: Anion Gap 17 mmol/L (10-20); BUN (Urea Nitrogen) 29 mg/dL (8.4-25.7); Calc. Creatinine Clearance 21 mL/min (70-130); Carbon Dioxide 25 mmol/L (22-29); Chloride 97 mmol/L (98-107); Estimated GFR-MDRD 10; Glucose 188 mg/dL (70-105); Potassium 3.8 mmol/L (3.5-5.1); Sodium 135 mmol/L (136-145)
--- NOTE | 2020-02-05 08:53 | PRG ---
DATE OF SERVICE: 02/05/2020 SUBJECTIVE: Mr. David mosley is a 59-year-old male with ESRD, on maintenance hemodialysis, was initially admitted due to a seizure. He has been evaluated by Neurology and adjustment with his antiseizure medications has been made. The patient voices no new complaints today. He denies any chest pain or shortness of breath. OBJECTIVE: VITAL SIGNS: Blood pressure 183/79, heart rate 66, respiratory rate 14, temperature 98.2, and O2 saturation 97%. GENERAL: The patient is awake, alert, comfortable, not in distress. Obese. SKIN: Adequate turgor. HEENT: He has pinkish conjunctivae. Anicteric sclerae. NECK: No neck mass. No carotid bruits. No JVD. CHEST: No deformities. LUNGS: Clear breath sounds. HEART: Normal sinus rhythm. No murmur. No gallops. No rubs. ABDOMEN: Globular, soft, and nontender. No masses. EXTREMITIES: No edema. MEDICATIONS: Of February 05, 2020, reviewed. LABORATORY DATA: Of February 05, 2020; white count 6 and hemoglobin 10.9. February 04, 2020; sodium 135, potassium 4.3, chloride 99, carbon dioxide 21, BUN 47, creatinine 7.24, and calcium 7.3. ASSESSMENT AND PLAN: 1. End-stage renal disease, stable, tolerating current hemodialysis regimen. The patient did receive dialysis yesterday and fluid removal was done. I do not see any indication for any emergent hemodialysis today. 2. Seizure disorder. Currently, on antiseizure medications. Neurology is following. 3. Anemia, currently on weekly Epogen. I agree with current management. Job ID: [id number]
[2020-02-05] MEDS ORDERED: hydrALAZINE 25 MG TAB PO SCH (09:00)
[2020-02-05] MEDS ORDERED: NIFEdipine XL 60 MG TAB PO SCH (09:15)
[2020-02-05] MEDS: Calcium Carbonate 500 MG ChewTAB PO SCH (10:14)
[2020-02-05] MEDS: Sevelamer Carbonate 800 MG TAB PO SCH (10:14)
[2020-02-05] MEDS: Clopidogrel Bisulfate 75 MG TAB PO SCH (10:18)
[2020-02-05] MEDS: levETIRAcetam 500 MG TAB PO SCH (10:19)
[2020-02-05] MEDS: Lacosamide 50 mg Tablet PO SCH (10:19)
[2020-02-05] MEDS: Heparin 5,000 UNITS/ML VIAL SC SCH (10:20)
[2020-02-05] MEDS: FLUoxetine HCl 20 MG CAP PO SCH (10:20)
[2020-02-05] MEDS: Losartan 25 MG TAB PO SCH (10:20)
--- NOTE | 2020-02-05 10:30 | CON ---
DATE OF CONSULTATION: 02/05/2020 REQUESTING PHYSICIAN: Dr. Shanice Garcia. CONSULTING PHYSICIAN: Dr. Rayo Medeiros. REASON FOR CONSULTATION: Right wrist pain on ulnar aspect. BRIEF CLINICAL HISTORY: Rene is a 59-year-old male, who was admitted by the Medicine Team for mental status changes and somnolence on February 02, 2020. Our service was consulted for nontraumatic onset of ulnar wrist pain, which started insidiously without prodrome or trauma a week ago. For sake of thoroughness, the Medicine Team ordered plain radiographs of the wrist, which demonstrated a radial aspect erosion at the insertion of the brachioradialis. MRI did not demonstrate an acute or edematous change, therefore it was negative. The ulnar side of the wrist was unremarkable. I believe the Medicine Team just wanted a clinical evaluation to determine whether or not this was a septic process prior to discharge. PAST MEDICAL HISTORY: Significant for insulin requiring diabetes, chronic renal insufficiency requiring dialysis. 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 His mental status has improved over his hospitalization, but his wrist continues to hurt. There has been no treatment directed so far. He cannot tolerate NSAIDs because of his renal insufficiency. PHYSICAL EXAMINATION: Visual inspection of the right upper extremity demonstrates to have a little bit of tenderness over the distal ulnar aspect of the ulna itself. Supination and pronation appear to be full. Flexion, extension, full digital excursions observed. Adduction and abduction of the fingers are normal. Palpation is the only provocative concordant finding on this exam. Shuck is negative. There is no gross effusion palpable. I get no crepitus within the ranging of the wrist adduction, abduction or supination or pronation. Only point tenderness is confirmatory finding. IMAGING STUDIES: Two views of the right wrist demonstrate an erosive lesion noted at the insertion of the brachioradialis, distal aspect of the radial styloid radially. Otherwise, no acute findings other than vascularities observed. Calcifications appreciated in the vessel. MRI, similar findings, erosion appears to be nonreactive. IMPRESSION: 1. Benign exam as well as finding on MRI and radiographs. 2. Suspect aseptic ulnar synovitis. This does not appear to be a septic process. From an Orthopedic standpoint, no surgical recommendations at this point. Consider bracing for comfort, but this would concern skin issues. I would also not recommend steroids or NSAIDs in this particular patient, so close observation and benign neglect. The patient may be discharged from an Orthopedic standpoint, low concern for septic process. Job ID: [id number]
[2020-02-05] MEDS: HumaLOG 300 UNITS/3 ML VIAL SC PRN (10:57)
--- NOTE | 2020-02-05 11:40 | PDOC.NEUPN ---
- Subjective Encounter Date: 02/05/20 Subjective: Patient feels better today. No further seizures since admission after addition of Vimpat to the current anticonvulsant regimen Keppra. - Objective Vital Signs & Weight: Vital Signs (12 hours) Temp Pulse Pulse Resp BP BP BP 02/05/20 10:24 66 172/75 H 02/05/20 10:15 66 172/75 H 02/05/20 08:15 66 183/79 H 02/05/20 07:24 98.3 F 66 14 183/79 H 02/05/20 04:00 97.7 F 66 16 197/85 H Pulse Ox 02/05/20 10:24 02/05/20 10:15 02/05/20 08:15 02/05/20 07:24 97 02/05/20 04:00 97 Weight Weight 235 lb 11.2 oz I&O: 02/04/20 02/05/20 02/06/20 06:59 06:59 06:59 Intake Total 1335 1207 Output Total 0 Balance 1335 1207 Result Diagrams: 02/05/20 04:00 02/05/20 04:40 Additional Labs: Accuchecks 02/05/20 02/05/20 02/04/20 10:33 05:44 20:56 POC Glucose 265 H 176 H 206 H 02/04/20 17:04 POC Glucose 140 H Radiology Reviewed by me: Yes EKG Reviewed by me: Yes ROS - Review of Systems Constitutional: denies: fever, chills, sweats, weakness, malaise, other Eyes: denies: pain, vision change, conjunctivae inflammation, eyelid infla mmation, redness, other ENT: denies: ear pain, ear discharge, nose pain, nose discharge, nose congestion, mouth pain, mouth swelling, throat pain, throat swelling, other Respiratory: denies: cough, dry, shortness of breath, hemoptysis, SOB with excer tion, pleuritic pain, sputum, wheezing, other Gastrointestinal: denies: nausea, vomiting, abdominal pain, diarrhea, constipation, melena, hematochezia, other Genitourinary: reports: dysuria. denies: frequency, incontinence, hematuria, retention, other Musculoskeletal: denies: neck pain, shoulder pain, arm pain, back pain, hand pain, leg pain, foot pain, other Skin: denies: rash, lesions, damian, bruising, other Neurological: reports: weakness, numbness, incoordination. denies: change in speech, confusion, seizures, other - Medication Medications: Active Medications Generic Name Dose Route Start Last Admin Trade Name Freq PRN Reason Stop Dose Admin Acetaminophen 650 mg 02/02/20 16:01 02/03/20 08:44 Acetaminophen 325 Mg Tab PO 650 mg Q4H PRN Administration Headache/Fever/Mild Pain (1-3) Atorvastatin Calcium 10 mg 02/02/20 21:00 02/04/20 20:26 Atorvastatin Calcium 10 Mg Tab PO 10 mg HS HERI Administration Calcium Carbonate 1,000 mg 02/03/20 21:00 02/05/20 10:14 Calcium Carbonate 500 Mg Chewtab PO 1,000 mg BID HERI Administration Clopidogrel Bisulfate 75 mg 02/03/20 09:00 02/05/20 10:18 Clopidogrel Bisulfate 75 Mg Tab PO 75 mg DAILY HERI Administration Epoetin Luciano-epbx 7,500 unit 02/02/20 17:00 02/02/20 22:31 Epoetin Luciano-Epbx (Esrd) 4,000 Unit/Ml Vial SC 7,500 unit Q7D HERI Administration Fluoxetine HCl 20 mg 02/03/20 09:00 02/05/20 10:20 Fluoxetine Hcl 20 Mg Cap PO 20 mg DAILY HERI Administration Heparin Sodium (Porcine) 5,000 units 02/02/20 21:00 02/05/20 10:20 Heparin 5,000 Units/Ml Vial SC 5,000 units TID HERI Administration Hydralazine HCl 50 mg 02/05/20 09:00 02/05/20 10:15 Hydralazine 25 Mg Tab PO 50 mg TID HERI Administration Insulin Human Lispro 0 units 02/02/20 16:01 02/05/20 10:57 Humalog 300 Units/3 Ml Vial SC 6 unit .MODERATE SLIDING SC PRN Administration Moderate Correctional Scale Insulin Human Lispro 0 units 02/02/20 16:01 02/04/20 21:27 Humalog 300 Units/3 Ml Vial SC 2 unit .BEDTIME SLIDING SC PRN Administration Bedtime Correctional Scale Lacosamide 50 mg 02/02/20 21:00 02/05/20 10:19 Lacosamide 50 Mg Tablet PO 50 mg BID HERI Administration Levetiracetam 1,000 mg 02/04/20 21:00 02/05/20 10:19 Levetiracetam 500 Mg Tab PO 1,000 mg BID HERI Administration Losartan Potassium 25 mg 02/03/20 09:00 02/05/20 10:20 Losartan 25 Mg Tab PO 25 mg DAILY HERI Administration Sevelamer Carbonate 800 mg 02/02/20 21:00 02/05/20 10:14 Sevelamer Carbonate 800 Mg Tab PO 800 mg TID HERI Administration - Exam General Appearance: awake alert Eye: PERRL ENT: normocephalic atraumatic Neck: supple Respiratory: CTAB Cardiovascular: RRR Gastrointestinal: soft, non-tender Extremities: no cyanosis Skin: normal turgor Neurological: no new deficit Musculoskeletal: no muscle wasting PSYCH: normal affect, normal behavior, A&O x 3 Results - Labs Result Diagrams: 02/05/20 04:00 02/05/20 04:40 Lab results: WBC 6.0 thou/uL (4.8-10.8) 02/05/20 04:00 Hgb 10.9 g/dL (14.0-18.0) L 02/05/20 04:00 Hct 32.7 % (42.0-52.0) L 02/05/20 04:00 MCV 94.0 fL (78.0-98.0) 02/05/20 04:00 Plt Count 192 thou/uL (130-400) 02/05/20 04:00 Neutrophils % 58.9 % (42.0-75.0) 02/05/20 04:00 Sodium 135 mmol/L (136-145) L 02/05/20 04:40 Potassium 3.8 mmol/L (3.5-5.1) 02/05/20 04:40 Chloride 97 mmol/L (98-107) L 02/05/20 04:40 Carbon Dioxide 25 mmol/L (22-29) 02/05/20 04:40 BUN 29 mg/dL (8.4-25.7) H 02/05/20 04:40 Creatinine 5.63 mg/dL (0.7-1.3) H 02/05/20 04:40 Glucose 188 mg/dL (70-105) H 02/05/20 04:40 Calcium 8.0 mg/dL (7.8-10.44) 02/05/20 04:40 Total Bilirubin 0.4 mg/dL (0.2-1.2) 02/02/20 14:07 AST 14 U/L (5-34) 02/02/20 14:07 ALT 19 U/L (8-55) 02/02/20 14:07 Alkaline Phosphatase 193 U/L (40-110) H 02/02/20 14:07 Creatine Kinase 86 U/L (30-200) 02/02/20 14:07 Troponin I Less than 0.010 ng/mL (< 0.028) 02/02/20 14:07 Serum Total Protein 6.3 g/dL (6.0-8.3) 02/02/20 14:07 Albumin 3.3 g/dL (3.5-5.0) L 02/02/20 14:07 PN A/P (1) Breakthrough seizure Code(s): G40.919 - EPILEPSY, UNSP, INTRACTABLE, WITHOUT STATUS EPILEPTICUS Status: Acute (2) Encephalopathy acute Code(s): G93.40 - ENCEPHALOPATHY, UNSPECIFIED Status: Acute (3) Hypertensive urgency Code(s): I16.0 - HYPERTENSIVE URGENCY Status: Acute (4) Dyslipidemia Code(s): E78.5 - HYPERLIPIDEMIA, UNSPECIFIED Status: Chronic (5) ESRD (end stage renal disease) on dialysis Code(s): N18.6 - END STAGE RENAL DISEASE; Z99.2 - DEPENDENCE ON RENAL DIALYSIS Status: Chronic (6) HTN (hypertension) Code(s): I10 - ESSENTIAL (PRIMARY) HYPERTENSION Status: Chronic Qualifiers: (7) Hemiparesis and other late effects of cerebrovascular accident Code(s): I69.359 - HEMIPLGA FOLLOWING CEREBRAL INFARCTION AFFECTING UNSP SIDE; I69.398 - OTHER SEQUELAE OF CEREBRAL INFARCTION Status: Chronic (8) Obesity (BMI 30-39.9) Code(s): E66.9 - OBESITY, UNSPECIFIED Status: Chronic (9) Secondary hyperparathyroidism of renal origin Code(s): N25.81 - SECONDARY HYPERPARATHYROIDISM OF RENAL ORIGIN Status: Chronic - Plan Daily Plan: PT/OT, speech therapy, DVT proph w/SCDs 59-year-old male with history significant for end-stage renal disease and prior stroke with residual focal deficits and seizure disorder presented with break through seizures. No seizures since admission after the addition of Vimpat. Current anticonvulsant regimen: Keppra thousand milligrams p.o. twice daily. Vimpat 50 mg p.o. twice daily. Head CT reviewed and was negative for acute intracranial pathology but did show evidence of prior stroke. EEG reviewed and was consistent with partial epilepsy. No subclinical seizures seen during the recording. Observe seizure precautions Ativan 2 mg IV for seizure greater than 2 minutes Neurochecks every 4 hours Continue home medications Continue medical management per primary team and nephrology. Plan discussed in detail with the patient and during MDR rounds.
[2020-02-05 12:20] VITALS: BP 183/75; TEMP 98.2
--- NOTE | 2020-02-05 15:01 | DIS ---
DATE OF ADMISSION: 02/02/2020 DATE OF DISCHARGE: 02/05/2020 DISCHARGE DISPOSITION: Home with [facility]. PRIMARY DISCHARGE DIAGNOSES: Breakthrough seizures with history of seizure disorder; initial acute metabolic encephalopathy secondary to seizures, resolved; initial suspicion for worsening left-sided weakness with prior history of cerebrovascular accident on the same side, likely transient ischemic attack, resolved; chronic anemia due to renal disease; end-stage renal disease, on hemodialysis; diabetes mellitus type 2; dyslipidemia; hypertension; history of cerebrovascular accident with left hemiparesis; obesity; right below-knee amputation with prosthesis. PROCEDURES DONE DURING HOSPITALIZATION: CT angio of brain showed no M1 segment thrombosis. Large esophageal diverticulum was seen. CT brain without contrast showed no acute intracranial abnormality. The right wrist three-view x-rays done showed arthritic change of the wrist. No acute process. MRI of the right wrist without contrast done showed nonspecific edema involving the long finger metacarpal, likely reactive osteitis. Erosive change involving radiostyloid may reflect sequelae of prior gout of trauma. No large joint effusion is evident. There is nonspecific edema versus cellulitis of the hand and forearm. There is mild ECU tendinosis. There is mild reactive tenosynovitis of fourth and fifth dorsal extensor compartments. EEG done on 02/02/2020, showed findings consistent with interictal expression of partial epilepsy in the setting of mild to moderate generalized nonspecific cerebral dysfunction. No ictal discharges are seen during the recording. Blood cultures x2, no growth. H and H 10 and 32, platelet count is 192, white count is 6. BUN 29, creatinine 5.6. Prolactin was 27 on the day of admission. COVID-19 PCR was not detected on 02/02/2020. DISCHARGE MEDICATIONS: 1. Aspirin 81 mg p.o. daily. 2. [place] p.r.n. for pain. 3. PhosLo 667 mg three tablets p.o. three times daily. 4. Fluoxetine 20 mg daily. 5. Velphoro 500 mg p.o. twice daily. 6. Vitamin D3 of 2000 units p.o. daily. 7. Cozaar 25 mg p.o. daily. 8. Hydralazine 25 mg three times daily. 9. Keppra 1000 mg twice daily. 10. Vimpat 50 mg twice daily. 11. Procardia XL 60 mg p.o. daily. 12. Plavix 75 mg p.o. daily. 13. Lipitor 10 mg p.o. at bedtime. 14. Procrit 7500 units subcu once weekly. INPATIENT CONSULT: Dr. Delacruz for Cardiology, Dr. Dalal for Nephrology, Dr. Garay for Neurology. DISCHARGE PLAN: The patient to follow up with his primary care physician, Dr. Mariah Alston in 1 week. BRIEF COURSE DURING HOSPITALIZATION: The patient initially got admitted on the after he had an episode of seizure-like activity with altered mental state. EMS also suspected that he had worsening of his left-sided weakness with prior history of CVA and left hemiparesis. In view of above-mentioned factors, the patient was admitted to stroke unit. He has had complete neurologic workup done. The patient's left-sided weakness is at his baseline status. He also has right BKA and ambulates with a rolling walker. His acute encephalopathy completely resolved likely due to breakthrough seizures. In addition to Keppra that he takes at home, Vimpat was added. He has had Nephrology, Neurology, and Cardiology consultations as well. The patient developed a 2-second pauses while on telemetry monitoring on stroke unit. His clonidine was discontinued. He was placed on Procardia XL and hydralazine for hypertension. He has remained hemodynamically stable and will be shortly discharged home. Please note, I have seen and examined the patient on the day of discharge. Job ID: [id number]
[2020-02-06] MEDS ORDERED: NIFEdipine XL 60 MG TAB PO SCH ×2 (09:00)
--- NOTE | 2020-02-14 11:35 | EKG ---
Test Reason : AMS Blood Pressure : / mmHG Vent. Rate : 070 BPM Atrial Rate : 070 BPM P-R Int : 286 ms QRS Dur : 114 ms QT Int : 456 ms P-R-T Axes : 060 -02 030 degrees QTc Int : 492 ms Sinus rhythm with 1st degree A-V block Septal infarct , age undetermined Abnormal ECG Confirmed by LILLIAM SOARES M.D. ([id number]), brands editor JUSTINO DOMÍNGUEZ ([id number]) on 02/14/2020 11:34:55 AM Referred By: Confirmed By:LILLIAM SOARES M.D.
== END 2020-02-05 13:37 | disposition home health service (06) | DRG 100 ==
LOC: ERS 13:34 → 2SE 15:54
PROVIDERS: ADMIT Internal Medicine; ATTEND Internal Medicine
PROC: 5A1D70Z Performance of Urinary Filtration, Intermittent, Less than 6 Hours Per Day (ICD-10-PCS; principal; 2020-02-02)
DX: G40.909 Epilepsy, unspecified, not intractable, without status epilepticus (principal); N18.6 End stage renal disease; I12.0 Hypertensive chronic kidney disease with stage 5 chronic kidney disease or end stage renal disease; I69.954 Hemiplegia and hemiparesis following unspecified cerebrovascular disease affecting left non-dominant side; G45.9 Transient cerebral ischemic attack, unspecified; N25.81 Secondary hyperparathyroidism of renal origin; Z20.828 Contact with and (suspected) exposure to other viral communicable diseases; E78.5 Hyperlipidemia, unspecified; D63.1 Anemia in chronic kidney disease; E83.51 Hypocalcemia; E66.9 Obesity, unspecified; E11.51 Type 2 diabetes mellitus with diabetic peripheral angiopathy without gangrene; I16.0 Hypertensive urgency; E11.22 Type 2 diabetes mellitus with diabetic chronic kidney disease; Z88.0 Allergy status to penicillin; Z88.1 Allergy status to other antibiotic agents; Z79.4 Long term (current) use of insulin; Z79.01 Long term (current) use of anticoagulants; Z99.2 Dependence on renal dialysis; Z89.511 Acquired absence of right leg below knee; Z90.49 Acquired absence of other specified parts of digestive tract; Z68.36 Body mass index [BMI] 36.0-36.9, adult
CPT/HCPCS: 36415; 36416; 70450; 70496; 70498; 71045; 80048; 80053; 82550; 83605; 83735; 84146; 84443; 84484; 85025; 85610; 85652; 85730; 86140; 87040; 87635; 90935; 93005; 93010; 95712; 95816; 95819; 96361; 96365; 96375; G0257; J0692; J1644; J1953; J2060; J3370; J7030; Q0162; Q5105; Q9967; U0003

== ENCOUNTER 2020-04-12 12:26 | Observation (INO) | payer MEDICARE, SELFPAY ==
--- NOTE | 2020-04-12 12:57 | CT ---
CT Brain WO Con: 04/12/2020 12:40 PM CLINICAL HISTORY: History of seizures. IMAGING TECHNIQUE: Multiple CT images were obtained of the brain without IV contrast. COMPARISON: CT the brain dated February 02, 2020 and MR the brain dated 07/28/2019 FINDINGS: BRAIN: Evidence of acute infarct: None. Evidence of chronic ischemic change:The moderate to severe chronic small vessel white matter ischemic changes stable. Remote left inferior cerebellar hemisphere infarct with encephalomalacia is stable. Evidence of intracranial hemorrhage: None. Evidence of brain volume loss:None. Evidence of midline shift: Third ventricle and septum pellucidum are midline. Ventricles: Normal. No hydrocephalus. SKULL: Intact. VISUALIZED PARANASAL SINUSES: Clear. MASTOID AIR CELLS: Clear. EXTRACRANIAL SOFT TISSUES: Normal. IMPRESSION: No acute intracranial abnormality.
[2020-04-12 14:07] LABS: #Eosinphils 0.1 thou/uL (0.0-0.7); #Lymphocytes 1.4 thou/uL (1.20-3.40); #Monocytes 0.6 thou/uL (0.11-0.59); #Neutrophils 8.1 thou/uL (1.40-6.50); %Basophils 0.4 % (0.0-1.0); %Eosinophils 1.2 % (0.0-10.0); %Lymphocytes 13.7 % (21.0-51.0); %Monocytes 5.6 % (0.0-10.0); %Neutrophils 79.1 % (42.0-75.0); Hemoglobin 10.8 g/dL (14.0-18.0); Mean Corpuscular HGB CONC 33.4 g/dL (32.0-36.0); Mean Corpuscular Hemoglobin 31.2 pg (27.0-31.0); Mean Corpuscular Volume 93.6 fL (78.0-98.0); Mean Platelet Volume 7.5 fL (7.4-10.4); Platelet Count 161 thou/uL (130-400); RBC Distribution Width 12.9 % (11.5-14.5); Red Blood Cell (RBC) Count 3.45 mill/uL (4.70-6.10); White Blood Cell (WBC) Count 10.2 thou/uL (4.8-10.8)
[2020-04-12] MEDS ORDERED: Morphine 4 MG/ML VIAL ONE ×2 (14:17→17:17)
[2020-04-12] MEDS ORDERED: Ondansetron PF 4 MG/2 ML Vial ONE (14:18)
[2020-04-12 14:30] LABS: ALT (SGPT) 9 U/L (8-55); AST (SGOT) 12 U/L (5-34); Albumin 3.8 g/dL (3.5-5.0); Alkaline Phosphatase 98 U/L (40-110); Anion Gap 26 mmol/L (10-20); BUN (Urea Nitrogen) 78 mg/dL (8.4-25.7); Bilirubin, Total 0.5 mg/dL (0.2-1.2); Calc. Creatinine Clearance 0 mL/min (70-130); Calcium 6.9 mg/dL (7.8-10.44); Carbon Dioxide 17 mmol/L (22-29); Chloride 98 mmol/L (98-107); Globulin 3.1 g/dL (2.4-3.5); Glucose 73 mg/dL (70-105); Potassium 5.5 mmol/L (3.5-5.1); Protein, Total 6.9 g/dL (6.0-8.3); Sodium 135 mmol/L (136-145)
--- NOTE | 2020-04-12 14:38 | RAD ---
XR Chest 1 View Portable History: Chest pain Comparison: Radiograph January 2020 Findings: Heart size mildly enlarged. Mild pulmonary venous congestion. No pneumothorax. No effusion. No acute osseous abnormality. Impression: Cardiomegaly and mild pulmonary venous congestion.
--- NOTE | 2020-04-12 14:38 | RAD ---
XR Tib Fib Lt Leg 2 View History: Pain. Seizures Comparison: None. Findings: No acute fracture or malalignment. Moderate anterior tibial cortex remodeling. Soft tissue signal is anterolaterally. Moderate vascular calcifications. Impression: Chronic findings. No acute abnormality.
[2020-04-12] MEDS ORDERED: Lorazepam 2 MG/ML VIAL ONE (15:19)
[2020-04-12] MEDS ORDERED: Aspirin 325 MG TAB ONE (15:37)
[2020-04-12] MEDS ORDERED: Nitroglycerin 2% Ointment 1 INCH/1 GM Packet ONE (15:37)
--- NOTE | 2020-04-12 15:46 | ULT ---
US Venous Doppler Lt Unilat History: Pain and edema Comparison: None. Findings: Real-time grayscale, color and spectral analysis of the left lower extremity venous system was performed. The common femoral, femoral, proximal portions greater saphenous and deep femoral veins as well as th e popliteal posterior tibial veins were interrogated. Normal flow, augmentation and compression. Impression: No deep venous thrombosis.
[2020-04-12 16:32] LABS: CKMB 3.9 ng/mL (0-6.6)
--- NOTE | 2020-04-12 19:29 | PDOC.FPRHP ---
- History of Present Illness Chief Complaint: seizure History of Present Illness: 59 y/o M with PMHx ESRD on HD, seizure disorder, T2DM, hx multiple strokes presented to ER for c/o seizure. States this morning he became drowsy, unresponsive to his family while sitting at the table and his family called EMS because they believed he was having a seizure. He denies a post-ictal state after the event. Reports compliance with medications, but unsure of what he is supposed to be taking. Thinks he takes seizure medications once daily although appears they are prescribed BID per discharge summary from 01/2020. While in ER his family reported additional seizure activity. Per ER report, this was not seizure activity but rather the patient holding his hand over his chest for new onset of chest pain. Describes as pressure-like chest pain in the L chest without radiation, onset at rest, lasting 10 minutes and resolved on its own. He did receive morphine for leg pain, and thinks this may have helped his chest pain as well. Describes mild SOB associated with his chest pain. No associated n/v, diaphoresis. Denies history of heart problems other than hypertension. Endorses L leg pain, acute onset last night; no inciting event or trauma, no swelling, pain improved with morphine in ER. ED Course: EKst deg AV block, QTc prolongation, poor R wave progression, no ST changes Meds: morphine, ASA 324 mg, nitropaste, zofran Trop: 0.030 indeterminate - Allergies/Adverse Reactions Allergies Allergy/AdvReac Type Severity Reaction Status Date / Time Penicillins Allergy Severe Anaphylaxis Verified 02/02/20 18:59 piperacillin [From Zosyn] Allergy Severe Anaphylaxis Verified 02/02/20 18:59 tazobactam [From Zosyn] Allergy Severe Anaphylaxis Verified 02/02/20 18:59 - Home Medications Medication Instructions Recorded Confirmed Type FLUoxetine HCl [Prozac] 20 mg PO DAILY 02/17/18 04/12/20 History Epoetin [Procrit] 7,500 units SC Q7D vial 04/02/18 07/27/19 Rx levETIRAcetam [Keppra] 1,000 mg PO BID #60 tablet 05/30/19 02/03/20 Rx Losartan [Cozaar] 25 mg PO DAILY #30 tab 06/04/19 02/03/20 Rx Atorvastatin Calcium [Lipitor] 10 mg PO HS #30 tab 06/24/19 04/12/20 Rx Clopidogrel Bisulfate [Plavix] 75 mg PO DAILY #30 tab 07/28/19 04/12/20 Rx Aspirin [Adult Low Dose Aspirin EC] 81 mg PO DAILY 02/03/20 04/12/20 History Calcium Acetate [Phoslo] 2,001 mg PO TID 02/03/20 02/03/20 History Cholecalciferol [Vitamin D3] 2,000 unit PO DAILY 02/03/20 04/12/20 History HYDROcodone/Acetaminophen 1 tab PO BID PRN 02/03/20 02/03/20 History [Hydrocodone-Acetamin 7.5-325] Lidocaine/Prilocaine [Lido-Prilo 1 applic TOP MWF 02/03/20 02/03/20 History Krystian Pack] Lacosamide [Vimpat] 50 mg PO BID #60 tab 02/05/20 04/12/20 Rx NIFEdipine [Procardia XL] 60 mg PO DAILY #30 tab 02/05/20 Rx hydrALAZINE HCl [Hydralazine HCl] 25 mg PO TID #90 tablet 02/05/20 04/12/20 Rx Insulin Glargine,Hum.Rec.Anlog 42 units SC BID-AC 04/12/20 04/12/20 History [Basaglar Kwikpen U-100] Sucroferric Oxyhydroxide [Velphoro] 1,000 mg PO TID-WM 04/12/20 04/12/20 History - History PMHx: ESRD, multiple strokes, HTN, seizure disorder, T2DM, HFpEF PSHx: R BKA, cholecystectomy, tonsillectomy, L 3rd toe amputation FHx: HTN, leukemia, colon cancer Social: denies tobacco, etoh, drug use - Review of Systems General: denies: fever/chills, fatigue Eyes: denies: eye pain, vision changes ENT: denies: nasal congestion, rhinorrhea Respiratory: reports: shortness of breath. denies: cough, congestion Cardiovascular: reports: chest pain. denies: palpitation, edema Gastrointestinal: denies: nausea, vomiting, diarrhea, constipation, abdominal pain Genitourinary: denies: dysuria Skin: denies: rashes Musculoskeletal: reports: pain, tenderness. denies: swelling Neurological: reports: seizure. denies: syncope - Vital signs BP: 127/62, Pulse: 65, Resp: 19, O2 sat: 98 on (Room Air), Temp 98.0 F, Wt 110 kg - Physical Exam Constitutional: NAD, awake, alert and oriented, well developed HEENT: normocephalic and atraumatic, PERRLA, conjunctiva clear, no scleral icterus, grossly normal vision, grossly normal hearing, MMM, good dention Neck: supple Chest: no-tender to palpation Heart: RRR, normal S1/S2, no murmurs/rubs/gallops, pulses present, no edema Lungs: no respiratory distress, other (rales bilateral bases) Abdomen: soft, non-tender, bowel sounds present Musculoskeletal: other (R BKA, L 3rd toe surgically absent, moderate tenderness LLE just distal to knee without gross swelling or deformity, mild clubbing of bilateral fingernails) Neurological: no focal deficit Skin: good turgor, other (hyperpigmentation of LLE distal to ankle, no ulcerations noted) Heme/Lymphatic: no unusual bruising or bleeding Psychiatric: normal mood and affect, other (lacks insight into personal health problems) FMR H&P: Results - Labs Result Diagrams: 04/12/20 13:54 04/12/20 13:54 Lab results: WBC 10.2 thou/uL (4.8-10.8) 04/12/20 13:54 Hgb 10.8 g/dL (14.0-18.0) L 04/12/20 13:54 Hct 32.3 % (42.0-52.0) L 04/12/20 13:54 MCV 93.6 fL (78.0-98.0) 04/12/20 13:54 Plt Count 161 thou/uL (130-400) 04/12/20 13:54 Neutrophils % 79.1 % (42.0-75.0) H 04/12/20 13:54 Sodium 135 mmol/L (136-145) L 04/12/20 13:54 Potassium 5.5 mmol/L (3.5-5.1) H 04/12/20 13:54 Chloride 98 mmol/L (98-107) 04/12/20 13:54 Carbon Dioxide 17 mmol/L (22-29) L 04/12/20 13:54 BUN 78 mg/dL (8.4-25.7) H 04/12/20 13:54 Creatinine 10.79 mg/dL (0.7-1.3) H 04/12/20 13:54 Glucose 73 mg/dL (70-105) 04/12/20 13:54 Calcium 6.9 mg/dL (7.8-10.44) L 04/12/20 13:54 Total Bilirubin 0.5 mg/dL (0.2-1.2) 04/12/20 13:54 AST 12 U/L (5-34) 04/12/20 13:54 ALT 9 U/L (8-55) 04/12/20 13:54 Alkaline Phosphatase 98 U/L (40-110) 04/12/20 13:54 CK-MB (CK-2) 3.9 ng/mL (0-6.6) 04/12/20 13:52 Serum Total Protein 6.9 g/dL (6.0-8.3) 04/12/20 13:54 Albumin 3.8 g/dL (3.5-5.0) 04/12/20 13:54 - EKG Interpretation EKG: EKst deg AV block (CA interval 262), prolonged QTc 505, poor R wave progression, no ST segment changes FMR H&P: A/P - Plan Atypical chest pain r/o ACS Chest pain at rest resolved with morphine, indeterminate troponin 0.030 in ED. EKG with 1st deg AV block, prolonged QTc, poor R wave progression, no acute ST changes. Heart score 4. Stress test wnl 06/2017. Echo 05/201920 grade 1 diastolic dysfunction EF 55-60%. - trend troponin x 3 - tele monitoring - stat EKG if develops chest pain - nitro PRN for chest pain - NPO after MN for stress test in AM, not on beta saira at home Seizure disorder Reported seizure activity. Elevated prolactin at 55 in ER. Suspect medication non-compliance due to poor health literacy. - will need to verify medications with pharmacy, in AM; unable to contact this evening - discharged on 1000 mg keppra BID and 50 mg vimpat BID 01/2020, will give 1000 mg keppra this evening and verify medications in AM - seizure precautions ESRD Missed dialysis today due to coming to ER. 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 Mild signs of volume overload on exam today. - continue to monitor vitals - strict I/O L leg pain US r/o DVT negative in ED. Pain not improved with tylenol. Gave morphine x 1 for persistent pain. XR tib/fib no acute findings in ED. No systemic signs of infe ction. No overlying erythema. - consider w/u for osteomyelitis if pain persists HTN - continue home losartan, hydralazine, procardia Hx stroke Mild residual L sided weakness. - continue ASA and plavix HFpEF Grade 1/3 diastolic dysfunction with EF 55-60% on echo 05/2019. - continue home anti-HTN regimen Dispo: tele obs Diet: NPO after MN IVF: SL DVT ppx: heparin GI ppx: not indicated Code: FULL FMR H&P: Upper Level - Plan Date/Time: 04/12/201928 IElisabeth, have evaluated this patient and agree with findings/plan as outlined by international student counselor resident. Pertinent changes/additions are listed here. Rene Hernandez HPI: 59 yo M w/ PMH of seizures, DM2, ESRD, CVA, Rt BKA presents from home for seizure, L leg pain, and reports L sided chest pain. In the ED, he began shaking and clutching his L chest. He reports his chest pain began at rest, is located on his L side, described as pressure, resolved 10 minutes later. Associated sx include SOB. Denied associated diaphoresis/nausea, denied radiation. Reports it improved with the morphine that was given for his leg pain. States this is a new pain for him. Pt reports he has seizures once per month. He reports he had one earlier today which was his normal seizure, he loses consciousness and does not remember them. No family was with him to ask for a description of his seizure, or to see if he was post-ictal afterwards. He reports L leg pain since last night. Denies hx of trauma during his seizure or trauma to L leg. Imaging: CT head showed no acute changes, chronic ischemic changes, and remote L inferior cerebellar stroke with encephalomalacia. CXR: cardiomegaly with mild pulmonary vascular congestion. EKG showed prolonged CA and QTc, with poor R wave progression. US LLE showed no DVT. L Tib/Fib XR showed no fracture. Labs: Significant for indeterminate Trop 0.030, prolactin 55, Hgb 10.8 (chronic) MCV of 93, K of 5.5, CO2 of 17. ED: Given ASA, nitrobid, Zofran, morphine Physical exam: significant for heart RRR, lungs had rhales at bilateral lower lobes. LLE diffusely tender to palpation, LE skin is shiny with no hair present. PT pulse 1+. Trace edema. Assesment and Plan Atypical CP, ACS R/O -HEART score of 4. Vasculopath with ESRD, Rt BKA, hx CVA. Recent echo showed normal EF. NPO for stress in the AM. Risk-stratifying labs ordered. Trend trops. Will repeat EKG/trop if pain recurs. ESRD -Dr. Dalal consulted from ED, patient missed dialysis today. Dr. Dalal plans to have patient dialyzed tomorrow outpatient. Hx of Seizures -Resume home keppra. It appears he was discharged on Vimpat last admission, and picked up a 1 month supply that should have been completed in February via review of [facility]. Patient needs to follow up outpatient with his neurologist for his seizure maintenance medications. Seizure precautions while inpt. LLE pain -US showed no DVT, XR showed no fractures. Will add a CK to AM labs. Code status: Full. Dispo: Admit to tele obs. Trend trops. NPO for stress in the AM.
[2020-04-12] MEDS ORDERED: Nitroglycerin 0.4 MG TAB (25 Tab Bottle) SL PRN (19:36)
[2020-04-12] MEDS ORDERED: Dextrose 50% Abboject 50 ML SYRINGE SLOW IVP PRN (19:36)
[2020-04-12] MEDS ORDERED: Dextrose 5% in Water 1,000 ML IV PRN (19:36)
[2020-04-12 20:24] LABS: Troponin I 0.035 ng/mL (< 0.028)
[2020-04-12 21:56] VITALS: BMI 38.2
[2020-04-12] MEDS: Acetaminophen 325 MG TAB PO PRN (22:05)
[2020-04-12] MEDS: Heparin 5,000 UNITS/ML VIAL SC SCH (22:29)
[2020-04-12 22:51] LABS: Troponin I 0.026 ng/mL (< 0.028)
[2020-04-13] MEDS ORDERED: levETIRAcetam 500 MG TAB PO SCH ×2 (00:30→09:00)
[2020-04-13] MEDS ORDERED: Morphine 2 MG/ML VIAL SLOW IVP SCH (01:00)
[2020-04-13] MEDS ORDERED: HumaLOG 300 UNITS/3 ML VIAL SC PRN (02:32)
[2020-04-13 05:28] LABS: Anion Gap 22 mmol/L (10-20); BUN (Urea Nitrogen) 91 mg/dL (8.4-25.7); CK (CPK) 118 U/L (30-200); Calc. Creatinine Clearance 11 mL/min (70-130); Calcium 6.6 mg/dL (7.8-10.44); Carbon Dioxide 21 mmol/L (22-29); Cardiac Risk 4.6 (Less than 4.5); Chloride 96 mmol/L (98-107); Cholesterol 170 mg/dl (< 200 Desired); HDL Cholesterol 37 mg/dL (>60 Neg Risk); LDL Cholesterol, Calculated 122 mg/dL; Sodium 134 mmol/L (136-145); Triglycerides 56 mg/dL (Less than 150)
[2020-04-13 05:37] LABS: Glucose 51 mg/dL (70-105)
[2020-04-13] MEDS: Acetaminophen 325 MG TAB PO PRN (05:40)
[2020-04-13] MEDS ORDERED: traMADol HCl 50 MG TAB PO PRN (06:00)
[2020-04-13] MEDS ORDERED: Non-Formulary Item 1 EACH (Insulin Glargine,Hum.Rec.Anlog [Basaglar Kwikpen U-100] 100 UN SC SCH (07:30)
--- NOTE | 2020-04-13 08:00 | PDOC.FM ---
- Subjective Subjective: Doing well this morning. Still with chronic left lower leg pain, unchanged from previous. States tramadol and morphine have not helped much, previously gabapentin has helped with the pain. Denies any further episodes of CP. No SOB, n/v, diaphoresis, fever/chills, YAÑEZ, dizziness/lightheadedness. - Objective MAR Reviewed: Yes Vital Signs & Weight: Vital Signs (12 hours) Temp Pulse Resp BP Pulse Ox 04/13/20 04:00 97.4 F L 61 18 94/49 L 100 04/13/20 01:40 62 14 109/52 L 04/12/20 22:00 97.9 F 63 16 99/56 L 97 04/12/20 21:35 98.4 F 66 18 127/58 L 97 Weight Weight 110.813 kg Result Diagrams: 04/12/20 13:54 04/13/20 04:43 Phys Exam - Physical Examination Constitutional: NAD (resting comfortably, good spirits) HEENT: moist MMs Neck: supple Respiratory: no wheezing, no rales, no rhonchi, clear to auscultation bilateral Cardiovascular: RRR, no significant murmur, no rub Gastrointestinal: soft, non-tender, no distention, positive bowel sounds R BKA. Left lower leg painful to light touch from knee to ankle No deformity, able to move freely. 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 Heart score 4 - Stress WNL 06/2017, Echo 05/2019 with grade 1 diastolic dysfunction and EF 55- 60% - No acute events on tele, no recurrence of sxs - Stress this AM #Seizure disorder - Reported seizure activity. Elevated prolactin at 55 in ER. Suspect medication non-compliance due to poor health literacy. - will need to verify medications with pharmacy, this AM as patient is unaware of his medications - discharged on 1000 mg keppra BID and 50 mg vimpat BID 01/2020 - seizure precautions #ESRD - Missed dialysis on admission due to coming to ER. [employer] is Dr. Dalal; discussed and will plan for outpatient dialysis today after DC if stress test wnl. - No acute electrolyte abnormalities #L leg pain - US r/o DVT negative in ED. XR tib/fib no acute findings in ED. No systemic signs of infection. No overlying erythema. - Suspect chronic pain syndrome as this is long-standing pain - Morphine, tramadol, APAP with minimal relief. States Gabapentin has helped in past, renally dose #HTN - continue home losartan, hydralazine, procardia. Monitor #Hx stroke - Mild residual L sided weakness. - continue ASA and plavix #HFpEF - Grade 1/3 diastolic dysfunction with EF 55-60% on echo 05/2019. - continue home anti-HTN regimen Diet: NPO IVF: SL DVT ppx: heparin Code: FULL PCP: CC Dispo: Admit to tele obs for atypical chest pain with stress test this AM. Discharge this PM if negative stress for OP HD.
[2020-04-13] MEDS ORDERED: NIFEdipine XL 60 MG TAB PO SCH (09:00)
[2020-04-13] MEDS ORDERED: Clopidogrel Bisulfate 75 MG TAB PO SCH (09:00)
[2020-04-13] MEDS ORDERED: Aspirin Chewable 81 MG TAB PO SCH (09:00)
[2020-04-13] MEDS ORDERED: Famotidine 20 MG TAB PO SCH (09:00)
[2020-04-13] MEDS ORDERED: Gabapentin 100 MG CAP PO SCH (09:00)
[2020-04-13] MEDS ORDERED: Insulin Glargine 42 UNITS in Pre-Filled Syringe 1 EACH SC SCH (09:00)
[2020-04-13] MEDS ORDERED: Losartan 25 MG TAB PO SCH (09:00)
--- NOTE | 2020-04-13 09:30 | PRG ---
DATE OF SERVICE: 04/13/2020 SUBJECTIVE: Mr. Hernandez is a 59-year-old male with ESRD, was admitted for chest pain. He is being ruled out for MS. In addition, the patient is scheduled a for stress test. We are scheduling for his regular dialysis. He did miss dialysis yesterday. My plan is to do a 3- to 4-hour hemodialysis. No other complaints today. OBJECTIVE: VITAL SIGNS: Blood pressure is 102/70, heart rate 70. GENERAL: The patient is awake, alert, comfortable, not in distress. SKIN: Adequate turgor. HEENT: He has a pinkish conjunctivae. Anicteric sclerae. NECK: No neck mass. No carotid bruits. No JVD. CHEST: No deformities. LUNGS: Clear breath sounds. HEART: Normal sinus rhythm. No murmur. No gallops. No rubs. ABDOMEN: Globular, soft, nontender. No masses. EXTREMITIES: No edema. No deformities. Status post right BKA. MEDICATIONS: On April 13, 2020, reviewed. LABORATORY DATA: On April 12, 2020, white count 10.2, hemoglobin 10.8. On April 13, 2020, sodium 134, potassium 5, chloride 96, carbon dioxide 21, BUN 91, creatinine 11.51, glucose 51, calcium 6.6. ASSESSMENT/PLAN: 1. End-stage renal disease, stable. We will continue current 3 times a week hemodialysis. We will attempt 3- to 4-hour hemodialysis with fluid removal with this patient. 2. Hypocalcemia, calcium to be adjusted with dialysis. 3. Chest pain. The patient is being ruled out for myocardial infarction for a planned cardiac stress test. If this is negative, the plan is to discharge the patient. Job ID: [id number]
[2020-04-13] MEDS: Heparin 5,000 UNITS/ML VIAL SC SCH ×2 (10:37→15:24)
[2020-04-13] MEDS: hydrALAZINE 25 MG TAB PO SCH ×2 (12:21→15:23)
--- NOTE | 2020-04-13 13:34 | PRG ---
DATE OF SERVICE: 04/13/2020 I have discussed the case with Dr. Aiden Burns, and agree with his assessment and plan. Mr. Hernandez was admitted with some atypical chest pain and is also due for hemodialysis. He will be sent for a stress test this morning. If he does well on this, he will be sent for his daily hemodialysis and then subsequently discharged. Job ID: [id number]
--- NOTE | 2020-04-13 15:20 | NM ---
EXAM: CARDIAC SPECT HISTORY: Chest pain, hypertension, stroke, diabetes, end-stage renal disease TECHNIQUE: A myocardial perfusion scan was performed using the single isotope 1 day protocol with evin hnetium 99m sestamibi. [10 mCi] was injected intravenously for the rest exam followed by 30 mCi for the stress study. Pharmacologic stress with adenosine was monitored and interpreted by Dr. Mahan FINDINGS: Homogeneous tracer distribution is seen in the myocardial segments on stress and rest image s without fixed or reversible defects. Gated SPECT LVEF: 51% Wall motion exam: Normal IMPRESSION: Normal myocardial perfusion scan
[2020-04-13 15:56] VITALS: TEMP 98.1
[2020-04-13 17:19] VITALS: BP 168/71
[2020-04-13] MEDS ORDERED: Atorvastatin Calcium 10 MG TAB PO SCH (21:00)
--- NOTE | 2020-04-14 05:42 | DIS ---
DATE OF ADMISSION: 04/12/2020 DATE OF DISCHARGE: 04/13/2020 RESIDENT: Aiden Burns M.D. ADMITTING ATTENDING: Ramsey Dewitt M.D. DISCHARGE ATTENDING: Dominic Garcia M.D. CONSULTS: Dr. Dalal, Nephrology. PROCEDURES: 1. Hemodialysis performed on 04/13/20. 2. Brain CT without contrast performed on 04/12/2020 demonstrating no acute intracranial abnormality. 3. Chest x-ray performed on 04/12/2020, demonstrating cardiomegaly and mild pulmonary venous congestion. 4. Tib-fib x-ray performed on 04/12/2020 demonstrating chronic findings with no acute abnormality. 5. Left Lower extremity ultrasound performed on 04/12/2020, demonstrating no deep venous thrombosis. 6. Nuclear medicine stress test performed on 04/13/2020 demonstrating homogeneous tracer distribution seen in the myocardial segments, normal myocardial perfusion scan. PRIMARY DIAGNOSIS: Atypical chest pain. SECONDARY DIAGNOSES: 1. Seizure disorder, acute on chronic, secondary to medication noncompliance. 2. End-stage renal disease, on hemodialysis. 3. Chronic left leg pain. 4. Hypertension. 5. History of stroke. 6. Heart failure preserved ejection fraction. DISCHARGE MEDICATIONS: 1. Prozac 20 mg p.o. daily. 2. Epoetin 7500 units subcu q.7 days. 3. Keppra 1000 mg p.o. b.i.d. 4. Cozaar 25 mg p.o. daily. 5. Atorvastatin 10 mg p.o. at bedtime. 6. Plavix 75 mg p.o. daily. 7. [place] 7.5, one tablet p.o. b.i.d. p.r.n. 8. Aspirin 81 mg p.o. daily. 9. Vitamin D3 2000 units p.o. daily. 10. Calcium acetate p.o. t.i.d. 11. Procardia 60 mg p.o. daily. 12. Vimpat 50 mg p.o. b.i.d. 13. Hydralazine 25 mg p.o. t.i.d. 14. Basaglar insulin 42 units subcu b.i.d. 15. Velphoro 1000 mg p.o. t.i.d. Discontinue Medications: None. HISTORY OF PRESENT ILLNESS AND HOSPITAL COURSE: The patient is a 59-year-old male with past medical history of end-stage renal disease on hemodialysis, seizure disorder, type 2 diabetes, who presented to the emergency room for concern for seizure. Per family, the patient became drowsy and unresponsive while sitting at the table and the family called EMS, they believed he is having a seizure. He denied any postictal state and reports compliance with medications, but is unsure what he is supposed to be taking as far as his medication goes. While in the emergency room, he had been began to complain of left-sided acute onset chest pain, described as pressure-like without radiation, occurring at rest and resolved on its own. He also complained of left lower leg pain that had been chronic in nature and unresolved with medication. EKG in the emergency room showed a first-degree AV block with QTc prolongation, poor wave R-wave progression, but no acute ST changes. The patient's initial troponin was 0.03. Thus, the patient was admitted for an atypical chest pain and ACS rule out. The patient was monitored overnight on telemetry without any acute events. He has no recurrence of chest pain. Troponins trended and unchanged, likely elevated to his end-stage renal disease. Imaging of his left lower extremity was unremarkable. The patient was given a trial of gabapentin with improvement of the pain. Nephrology was consulted from emergency department as patient misses dialysis due to being in the emergency room and thus he was given dialysis on the morning of 04/13/2020. Due to the patient's risk factors, a stress test was performed on 04/13/2020 that was unremarkable. His home medications were otherwise continued and he did not have any other seizure-like activity. The findings of the stress test were discussed with the patient at bedside and patient is very eager to be discharged home. It is recommended the patient is to follow up with his primary care provider as well as his rn surgical for routine dialysis and his neurologist as indicated for further adjustment of his seizure medicines. The patient also encouraged to continue on his medications as prescribed. The patient voiced agreement understanding of the discharge plan. All questions were answered. DISPOSITION: Stable. DISCHARGE INSTRUCTIONS: 1. Location: Home. 2. Diet: Heart healthy, diabetic. 3. Activity as tolerated. 4. Followup: The patient is to follow up with his rn surgical for routine dialysis as previously directed. The patient is to follow up with his neurologist for medication adjustments of his seizure disorder. The patient is to follow up with his primary care physician within 1 to 2 weeks of discharge. Job ID: [id number] FRANCISCO
--- NOTE | 2020-04-17 15:21 | EKG ---
Test Reason : Blood Pressure : / mmHG Vent. Rate : 071 BPM Atrial Rate : 071 BPM P-R Int : 262 ms QRS Dur : 112 ms QT Int : 466 ms P-R-T Axes : 062 -29 037 degrees QTc Int : 506 ms Sinus rhythm with 1st degree A-V block Anteroseptal infarct , age undetermined Prolonged QT Abnormal ECG Confirmed by DELIA DORSEY DO ([id number]), website/blog editor JUSTINO DOMÍNGUEZ ([id number]) on 04/17/2020 3:20:36 PM Referred By: Confirmed By:DELIA DORSEY DO
== END 2020-04-13 18:11 | disposition home or self-care (01) ==
LOC: ERS 12:26 → ERHOLD 17:14 → 2SE 21:57
PROVIDERS: ADMIT Family Medicine; ATTEND Family Medicine
DX: R07.89 Other chest pain (principal); G40.909 Epilepsy, unspecified, not intractable, without status epilepticus; I13.2 Hypertensive heart and chronic kidney disease with heart failure and with stage 5 chronic kidney disease, or end stage renal disease; N18.6 End stage renal disease; I50.30 Unspecified diastolic (congestive) heart failure; G89.29 Other chronic pain; M79.605 Pain in left leg; E83.51 Hypocalcemia; Z79.02 Long term (current) use of antithrombotics/antiplatelets; Z79.4 Long term (current) use of insulin; Z79.82 Long term (current) use of aspirin; Z79.899 Other long term (current) drug therapy; Z86.73 Personal history of transient ischemic attack (TIA), and cerebral infarction without residual deficits; Z88.0 Allergy status to penicillin; Z89.511 Acquired absence of right leg below knee; Z91.19 Patient's noncompliance with other medical treatment and regimen; Z99.2 Dependence on renal dialysis
CPT/HCPCS: 36415; 36416; 70450; 71045; 78452; 80048; 80053; 80061; 82550; 82553; 83036; 83690; 84146; 84443; 85025; 93005; 93017; 96372; 96374; 96375; 96376; A9500; G0378; J0153; J1644; J2060; J2270; J2405

== ENCOUNTER 2020-07-16 11:16 | Emergency (ER) | payer SELFPAY | END 2020-07-16 13:10 | disposition home or self-care (01) | LOC: ERS 11:16 | DX: E11.621 Type 2 diabetes mellitus with foot ulcer (principal); E78.5 Hyperlipidemia, unspecified; I10 Essential (primary) hypertension; E11.9 Type 2 diabetes mellitus without complications; Z79.82 Long term (current) use of aspirin; Z79.4 Long term (current) use of insulin; Z79.899 Other long term (current) drug therapy ==

== ENCOUNTER 2020-09-21 18:03 | Inpatient (IN) | payer MEDICARE, SELFPAY ==
[2020-09-21 18:44] LABS: Hemoglobin 11.4 g/dL (14.0-18.0); Mean Corpuscular HGB CONC 33.6 g/dL (32.0-36.0); Mean Corpuscular Hemoglobin 31.8 pg (27.0-31.0); Mean Corpuscular Volume 94.6 fL (78.0-98.0); Mean Platelet Volume 7.9 fL (7.4-10.4); Platelet Count 145 thou/uL (130-400); RBC Distribution Width 12.8 % (11.5-14.5); White Blood Cell (WBC) Count 16.2 thou/uL (4.8-10.8)
[2020-09-21 18:54] LABS: PTT 32.8 sec (22.9-36.1); Prothrombin Time 13.3 sec (12.0-14.7)
[2020-09-21 18:55] LABS: ALT (SGPT) 12 U/L (8-55); AST (SGOT) 11 U/L (5-34); Albumin 3.7 g/dL (3.5-5.0); Alkaline Phosphatase 137 U/L (40-110); Anion Gap 19 mmol/L (10-20); BUN (Urea Nitrogen) 53 mg/dL (8.4-25.7); Bilirubin, Total 0.4 mg/dL (0.2-1.2); CK (CPK) 61 U/L (30-200); Calc. Creatinine Clearance 0 mL/min (70-130); Calcium 7.9 mg/dL (7.8-10.44); Carbon Dioxide 21 mmol/L (22-29); Chloride 99 mmol/L (98-107); Globulin 2.9 g/dL (2.4-3.5); Glucose 330 mg/dL (70-105); Potassium 3.9 mmol/L (3.5-5.1); Protein, Total 6.6 g/dL (6.0-8.3); Sodium 135 mmol/L (136-145)
[2020-09-21 19:07] LABS: Band 17 % (5-11); Lymphocytes 5 % (21-51); MDiff Complete? YES; Monocytes 1 % (0-10); Neutrophil 72 % (42-75); Reactive Lymphocytes 5 % (0-10)
[2020-09-21] MEDS ORDERED: Cefepime 2 GM VIAL ONE (19:17)
[2020-09-21] MEDS ORDERED: Vancomycin 1 GM/200 ML BAG ONE (20:09)
[2020-09-21] MEDS ORDERED: Morphine 4 MG/ML VIAL ONE (20:09)
[2020-09-21 23:56] VITALS: BMI 36.8
[2020-09-22] MEDS ORDERED: HYDROcodone/Acetaminophen 5/325 mg Tablet PO SCH (00:45)
[2020-09-22 02:12] LABS: SARS-CoV-2 NAA Rapid Test Not Detected (NotDetected)
[2020-09-22] MEDS ORDERED: HYDROmorphone 0.5 MG/0.5 ML SYRINGE SLOW IVP SCH (04:00)
[2020-09-22] MEDS ORDERED: Dextrose 5% in Water 1,000 ML IV PRN (04:01)
[2020-09-22] MEDS ORDERED: Acetaminophen 325 MG TAB PO PRN (04:01)
[2020-09-22] MEDS ORDERED: Dextrose 50% Abboject 50 ML SYRINGE SLOW IVP PRN (04:01)
[2020-09-22] MEDS: HumaLOG 300 UNITS/3 ML VIAL SC PRN ×2 (07:16→10:59)
[2020-09-22] MEDS ORDERED: VANCOMYCIN 1.25 GM/250 ML BAG IVPB SCH (07:30)
[2020-09-22] MEDS ORDERED: Vancomycin HCl 1.25 GM in Sodium Chloride 0.9% 250 ML 250 ML IVPB SCH (07:45)
[2020-09-22] MEDS ORDERED: Vancomycin HCl 1.5 GM in Sodium Chloride 0.9% 250 ML 300 ML IVPB SCH (07:45)
[2020-09-22] MEDS ORDERED: HOLD VANCOMYCIN FOR LEVEL >20 FS SCH (07:45)
[2020-09-22] MEDS ORDERED: Vancomycin 1 GM in Premix Bag 1 BAG IVPB SCH (07:45)
[2020-09-22] MEDS ORDERED: Vancomycin HCl 750 MG in Sodium Chloride 0.9% 250 ML 250 ML IVPB SCH (07:45)
[2020-09-22] MEDS ORDERED: Enoxaparin Sodium 40 MG/0.4 ML SYRINGE SC SCH (09:00)
[2020-09-22] MEDS: Acetaminophen/Codeine 30-300mg Tablet PO PRN ×2 (09:09→20:11)
[2020-09-22 09:20] LABS: Hemoglobin 5.8 g/dL (14.0-18.0); Mean Corpuscular HGB CONC 30.6 g/dL (32.0-36.0); Red Blood Cell (RBC) Count 1.75 mill/uL (4.70-6.10); White Blood Cell (WBC) Count 7.6 thou/uL (4.8-10.8)
[2020-09-22 09:21] LABS: RBC Distribution Width 12.7 % (11.5-14.5)
[2020-09-22] MEDS: Cefepime 2 GM in Sodium Chloride 0.9% 100 ML IVPB SCH ×2 (09:36→20:10)
[2020-09-22 10:21] LABS: Band 3 % (5-11); Eosinophils 1 % (0-10); Lymphocytes 12 % (21-51); MDiff Complete? YES; Mean Platelet Volume 8.4 fL (7.4-10.4); Monocytes 5 % (0-10); Neutrophil 78 % (42-75); Platelet Count 68 thou/uL (130-400); Platelet Morphology Comment Appears Decreased; Polychromasia SLIGHT = 2-3 cells (100X) (0-2/hpf); Reactive Lymphocytes 1 % (0-10)
[2020-09-22 12:30] LABS: Hemoglobin 10.6 g/dL (14.0-18.0)
[2020-09-22] MEDS ORDERED: Insulin Regular 300 UNITS/3 ML VIAL SC PRN (21:15)
[2020-09-23 05:47] LABS: #Eosinphils 0.1 thou/uL (0.0-0.7); #Lymphocytes 1.3 thou/uL (1.20-3.40); #Monocytes 0.9 thou/uL (0.11-0.59); #Neutrophils 9.9 thou/uL (1.40-6.50); %Eosinophils 1.2 % (0.0-10.0); %Lymphocytes 10.8 % (21.0-51.0); %Monocytes 7.3 % (0.0-10.0); %Neutrophils 80.7 % (42.0-75.0); Hemoglobin 10.5 g/dL (14.0-18.0); Mean Corpuscular HGB CONC 33.2 g/dL (32.0-36.0); Mean Corpuscular Hemoglobin 32.2 pg (27.0-31.0); Mean Corpuscular Volume 97.2 fL (78.0-98.0); Mean Platelet Volume 8.1 fL (7.4-10.4); Platelet Count 128 thou/uL (130-400); RBC Distribution Width 12.7 % (11.5-14.5); Red Blood Cell (RBC) Count 3.26 mill/uL (4.70-6.10); White Blood Cell (WBC) Count 12.2 thou/uL (4.8-10.8)
[2020-09-23 05:50] LABS: Anion Gap 15 mmol/L (10-20); BUN (Urea Nitrogen) 30 mg/dL (8.4-25.7); Calc. Creatinine Clearance 22 mL/min (70-130); Calcium 7.8 mg/dL (7.8-10.44); Carbon Dioxide 24 mmol/L (22-29); Cardiac Risk 4.3 (Less than 4.5); Chloride 100 mmol/L (98-107); Cholesterol 145 mg/dl (< 200 Desired); Glucose 228 mg/dL (70-105); HDL Cholesterol 34 mg/dL (>60 Neg Risk); LDL Cholesterol, Calculated 89 mg/dL; Potassium 3.7 mmol/L (3.5-5.1); Sodium 135 mmol/L (136-145); Triglycerides 109 mg/dL (Less than 150)
[2020-09-23] MEDS: HumaLOG 300 UNITS/3 ML VIAL SC PRN ×3 (06:16→17:48)
[2020-09-23] MEDS: Enoxaparin Sodium 30 MG/0.3 ML SYRINGE SC SCH (11:04)
[2020-09-23] MEDS: Cefepime 2 GM in Sodium Chloride 0.9% 100 ML IVPB SCH (11:05)
[2020-09-23] MEDS: Acetaminophen/Codeine 30-300mg Tablet PO PRN (11:05)
[2020-09-23 11:11] LABS: Vancomycin, Random 16.1 ug/mL (See Comment)
[2020-09-23] MEDS: Lantus 1000 UNITS/10 ML VIAL SC SCH ×2 (13:35→21:54)
[2020-09-24] MEDS ORDERED: Ondansetron PF 4 MG/2 ML Vial IVP PRN (01:04)
[2020-09-24 05:04] LABS: #Eosinphils 0.1 thou/uL (0.0-0.7); #Lymphocytes 1.5 thou/uL (1.20-3.40); #Monocytes 0.8 thou/uL (0.11-0.59); #Neutrophils 5.8 thou/uL (1.40-6.50); %Basophils 0.4 % (0.0-1.0); %Eosinophils 1.8 % (0.0-10.0); %Lymphocytes 18.4 % (21.0-51.0); %Monocytes 9.9 % (0.0-10.0); %Neutrophils 69.5 % (42.0-75.0); Hemoglobin 10.4 g/dL (14.0-18.0); Mean Corpuscular HGB CONC 33.7 g/dL (32.0-36.0); Mean Corpuscular Hemoglobin 32.4 pg (27.0-31.0); Mean Platelet Volume 8.4 fL (7.4-10.4); Platelet Count 126 thou/uL (130-400); RBC Distribution Width 12.5 % (11.5-14.5); Red Blood Cell (RBC) Count 3.22 mill/uL (4.70-6.10); White Blood Cell (WBC) Count 8.3 thou/uL (4.8-10.8)
[2020-09-24 05:24] LABS: Anion Gap 16 mmol/L (10-20); BUN (Urea Nitrogen) 42 mg/dL (8.4-25.7); Calc. Creatinine Clearance 17 mL/min (70-130); Calcium 7.7 mg/dL (7.8-10.44); Carbon Dioxide 26 mmol/L (22-29); Chloride 98 mmol/L (98-107); Glucose 104 mg/dL (70-105); Sodium 136 mmol/L (136-145)
[2020-09-24] MEDS: Enoxaparin Sodium 30 MG/0.3 ML SYRINGE SC SCH (08:01)
[2020-09-24] MEDS: Lantus 1000 UNITS/10 ML VIAL SC SCH ×2 (08:02→21:19)
[2020-09-24 09:14] LABS: Vancomycin, Random 14.5 ug/mL (See Comment)
[2020-09-24] MEDS ORDERED: Epoetin (ESRD) 20,000 UNITS/ML SC SCH (09:30)
[2020-09-24] MEDS ORDERED: EPOETIN ALFA-EPBX (ESRD) 4,000 UNIT/ML VIAL SC SCH (12:00)
[2020-09-24] MEDS: Cefepime 2 GM in Sodium Chloride 0.9% 100 ML IVPB SCH (13:41)
[2020-09-24] MEDS ORDERED: Lorazepam 2 MG/ML VIAL SLOW IVP SCH (15:15)
[2020-09-24] MEDS ORDERED: Lorazepam 2 MG/ML VIAL ONE (15:28)
[2020-09-25 05:02] LABS: #Eosinphils 0.2 thou/uL (0.0-0.7); #Lymphocytes 1.4 thou/uL (1.20-3.40); #Monocytes 0.8 thou/uL (0.11-0.59); #Neutrophils 4.5 thou/uL (1.40-6.50); %Basophils 0.5 % (0.0-1.0); %Eosinophils 2.4 % (0.0-10.0); %Lymphocytes 20.7 % (21.0-51.0); %Monocytes 10.9 % (0.0-10.0); %Neutrophils 65.6 % (42.0-75.0); Hemoglobin 11.5 g/dL (14.0-18.0); Mean Corpuscular HGB CONC 32.4 g/dL (32.0-36.0); Mean Corpuscular Hemoglobin 31.3 pg (27.0-31.0); Mean Corpuscular Volume 96.6 fL (78.0-98.0); Platelet Count 152 thou/uL (130-400); RBC Distribution Width 12.6 % (11.5-14.5); Red Blood Cell (RBC) Count 3.67 mill/uL (4.70-6.10); White Blood Cell (WBC) Count 6.9 thou/uL (4.8-10.8)
[2020-09-25 05:29] LABS: ALT (SGPT) 31 U/L (8-55); AST (SGOT) 24 U/L (5-34); Albumin 3.4 g/dL (3.5-5.0); Alkaline Phosphatase 214 U/L (40-110); Anion Gap 14 mmol/L (10-20); BUN (Urea Nitrogen) 23 mg/dL (8.4-25.7); Bilirubin, Total 0.5 mg/dL (0.2-1.2); Calc. Creatinine Clearance 23 mL/min (70-130); Calcium 8.2 mg/dL (7.8-10.44); Carbon Dioxide 28 mmol/L (22-29); Chloride 100 mmol/L (98-107); Globulin 3.5 g/dL (2.4-3.5); Glucose 121 mg/dL (70-105); Protein, Total 6.9 g/dL (6.0-8.3); Sodium 138 mmol/L (136-145)
[2020-09-25] MEDS: Enoxaparin Sodium 30 MG/0.3 ML SYRINGE SC SCH (09:12)
[2020-09-25] MEDS: Lantus 1000 UNITS/10 ML VIAL SC SCH ×2 (09:13→20:59)
[2020-09-25] MEDS: hydrALAZINE 20 MG/ML VIAL SLOW IVP PRN (11:36)
[2020-09-25] MEDS: Cefepime 2 GM in Sodium Chloride 0.9% 100 ML IVPB SCH (11:36)
[2020-09-25 16:41] LABS: Actual Bicarbonate (HCO3a) 29.6 mEq/L (22-28); Base Excess (BEa) 5.6 mEq/L (-2.0 to +3.0); CO2 Tension 40.8 mmHg (35.0-45.0); Calcium, Ionized (arterial) 0.97 mmol/L (1.12-1.30); Carboxyhemoglobin (COHb) 0.5 gm% (0.0-3.0); Hemoglobin (Hb) 11.6 g/dL (14.0-18.0); O2 Tension (PaO2), arterial 68.6 mmHg (> 80.0); Potassium - ABG Lab 4.08 mmol/L (3.70-5.30); pH, Arterial 7.48 (7.35-7.45)
[2020-09-25 16:42] LABS: Puncture Site RRA
[2020-09-25] MEDS: HumaLOG 300 UNITS/3 ML VIAL SC PRN (17:44)
[2020-09-26] MEDS: hydrALAZINE 20 MG/ML VIAL SLOW IVP PRN ×2 (02:01→08:59)
[2020-09-26 05:47] LABS: #Eosinphils 0.2 thou/uL (0.0-0.7); #Lymphocytes 1.8 thou/uL (1.20-3.40); #Monocytes 0.8 thou/uL (0.11-0.59); #Neutrophils 4.2 thou/uL (1.40-6.50); %Basophils 0.5 % (0.0-1.0); %Eosinophils 2.4 % (0.0-10.0); %Lymphocytes 25.4 % (21.0-51.0); %Monocytes 11.1 % (0.0-10.0); %Neutrophils 60.5 % (42.0-75.0); Hemoglobin 11.6 g/dL (14.0-18.0); Mean Corpuscular HGB CONC 33.1 g/dL (32.0-36.0); Mean Corpuscular Volume 96.7 fL (78.0-98.0); Mean Platelet Volume 7.8 fL (7.4-10.4); Platelet Count 155 thou/uL (130-400); RBC Distribution Width 12.6 % (11.5-14.5); Red Blood Cell (RBC) Count 3.62 mill/uL (4.70-6.10)
[2020-09-26 06:08] LABS: ALT (SGPT) 23 U/L (8-55); AST (SGOT) 16 U/L (5-34); Albumin 3.5 g/dL (3.5-5.0); Alkaline Phosphatase 180 U/L (40-110); Anion Gap 17 mmol/L (10-20); BUN (Urea Nitrogen) 34 mg/dL (8.4-25.7); Bilirubin, Total 0.4 mg/dL (0.2-1.2); Calc. Creatinine Clearance 16 mL/min (70-130); Calcium 7.9 mg/dL (7.8-10.44); Carbon Dioxide 26 mmol/L (22-29); Chloride 100 mmol/L (98-107); Globulin 3.1 g/dL (2.4-3.5); Glucose 91 mg/dL (70-105); Potassium 4.1 mmol/L (3.5-5.1); Protein, Total 6.6 g/dL (6.0-8.3); Sodium 139 mmol/L (136-145)
[2020-09-26] MEDS: Lantus 1000 UNITS/10 ML VIAL SC SCH ×2 (08:57→21:01)
[2020-09-26] MEDS: Enoxaparin Sodium 30 MG/0.3 ML SYRINGE SC SCH (08:58)
[2020-09-26] MEDS ORDERED: diphenhydrAMINE 30 GM TUBE TOP SCH (20:00)
[2020-09-27] MEDS: hydrALAZINE 20 MG/ML VIAL SLOW IVP PRN ×4 (00:29→21:42)
[2020-09-27] MEDS: Lantus 1000 UNITS/10 ML VIAL SC SCH ×2 (09:30→21:42)
[2020-09-27] MEDS: Enoxaparin Sodium 30 MG/0.3 ML SYRINGE SC SCH (12:51)
[2020-09-27] MEDS ORDERED: Melatonin 3 MG TAB PO PRN (21:44)
[2020-09-27] MEDS ORDERED: diphenhydrAMINE 25 MG CAP PO PRN (23:47)
[2020-09-28 04:59] LABS: #Basophils 0.1 thou/uL (0.0-0.2); #Eosinphils 0.1 thou/uL (0.0-0.7); #Lymphocytes 2.4 thou/uL (1.20-3.40); #Neutrophils 6.1 thou/uL (1.40-6.50); %Basophils 0.9 % (0.0-1.0); %Eosinophils 1.5 % (0.0-10.0); %Lymphocytes 25.1 % (21.0-51.0); %Monocytes 9.9 % (0.0-10.0); %Neutrophils 62.6 % (42.0-75.0); Hemoglobin 12.6 g/dL (14.0-18.0); Mean Corpuscular HGB CONC 33.6 g/dL (32.0-36.0); Mean Corpuscular Hemoglobin 32.3 pg (27.0-31.0); Mean Corpuscular Volume 96.2 fL (78.0-98.0); Mean Platelet Volume 7.4 fL (7.4-10.4); Platelet Count 189 thou/uL (130-400); RBC Distribution Width 12.7 % (11.5-14.5); White Blood Cell (WBC) Count 9.7 thou/uL (4.8-10.8)
[2020-09-28 05:20] LABS: Anion Gap 16 mmol/L (10-20); BUN (Urea Nitrogen) 23 mg/dL (8.4-25.7); Calc. Creatinine Clearance 19 mL/min (70-130); Calcium 8.6 mg/dL (7.8-10.44); Carbon Dioxide 29 mmol/L (22-29); Chloride 98 mmol/L (98-107); Glucose 133 mg/dL (70-105); Potassium 4.7 mmol/L (3.5-5.1); Sodium 138 mmol/L (136-145)
[2020-09-28] MEDS: Enoxaparin Sodium 30 MG/0.3 ML SYRINGE SC SCH (08:10)
[2020-09-28] MEDS: Lantus 1000 UNITS/10 ML VIAL SC SCH ×2 (08:11→21:29)
[2020-09-28] MEDS: HumaLOG 300 UNITS/3 ML VIAL SC PRN (13:03)
[2020-09-29 05:42] LABS: Anion Gap 18 mmol/L (10-20); BUN (Urea Nitrogen) 45 mg/dL (8.4-25.7); Calc. Creatinine Clearance 14 mL/min (70-130); Calcium 8.4 mg/dL (7.8-10.44); Carbon Dioxide 27 mmol/L (22-29); Chloride 99 mmol/L (98-107); Glucose 126 mg/dL (70-105); Potassium 5.1 mmol/L (3.5-5.1); Sodium 139 mmol/L (136-145)
[2020-09-29] MEDS: Enoxaparin Sodium 30 MG/0.3 ML SYRINGE SC SCH (09:51)
[2020-09-29] MEDS: Lantus 1000 UNITS/10 ML VIAL SC SCH ×2 (09:52→18:32)
[2020-09-29] MEDS ORDERED: Amlodipine 10 MG TAB PO SCH (14:00)
[2020-09-29] MEDS: hydrALAZINE 25 MG TAB PO SCH ×2 (18:31→20:15)
[2020-09-29] MEDS: Calcium Acetate 667 MG CAP PO SCH ×2 (18:32→20:15)
[2020-09-29] MEDS: Lacosamide 50 mg Tablet PO SCH (20:15)
[2020-09-29] MEDS: levETIRAcetam 500 MG TAB PO SCH (20:15)
[2020-09-30] MEDS: Lantus 1000 UNITS/10 ML VIAL SC SCH (08:31)
[2020-09-30] MEDS ORDERED: FLUoxetine HCl 20 MG CAP PO SCH (09:00)
[2020-09-30] MEDS ORDERED: Amlodipine 10 MG TAB PO SCH (09:00)
[2020-09-30] MEDS ORDERED: Aspirin 81 mg Enteric Coated Tablet PO SCH (09:00)
[2020-09-30] MEDS ORDERED: Clopidogrel Bisulfate 75 MG TAB PO SCH (09:00)
[2020-09-30] MEDS: Lacosamide 50 mg Tablet PO SCH (09:02)
[2020-09-30] MEDS: levETIRAcetam 500 MG TAB PO SCH (09:07)
[2020-09-30] MEDS: hydrALAZINE 25 MG TAB PO SCH ×2 (09:10→14:40)
[2020-09-30] MEDS: Calcium Acetate 667 MG CAP PO SCH ×2 (09:12→14:39)
[2020-09-30] MEDS: Enoxaparin Sodium 30 MG/0.3 ML SYRINGE SC SCH (09:14)
[2020-09-30 11:09] VITALS: TEMP 98.2
[2020-09-30 14:41] VITALS: BP 92/51
== END 2020-09-30 15:06 | DRG 640 ==
LOC: ERS 18:03 → 2SE 22:34
PROVIDERS: ADMIT Student in an Organized Health Care Education/Training Program; ATTEND Internal Medicine
PROC: 5A1D70Z Performance of Urinary Filtration, Intermittent, Less than 6 Hours Per Day (ICD-10-PCS; principal; 2020-09-22)
DX: E87.1 Hypo-osmolality and hyponatremia (principal); G93.41 Metabolic encephalopathy; N18.6 End stage renal disease; I12.0 Hypertensive chronic kidney disease with stage 5 chronic kidney disease or end stage renal disease; I69.354 Hemiplegia and hemiparesis following cerebral infarction affecting left non-dominant side; N25.81 Secondary hyperparathyroidism of renal origin; E11.22 Type 2 diabetes mellitus with diabetic chronic kidney disease; G89.29 Other chronic pain; M25.512 Pain in left shoulder; E11.610 Type 2 diabetes mellitus with diabetic neuropathic arthropathy; E78.5 Hyperlipidemia, unspecified; D64.9 Anemia, unspecified; E66.9 Obesity, unspecified; G40.909 Epilepsy, unspecified, not intractable, without status epilepticus; Z99.2 Dependence on renal dialysis; Z88.0 Allergy status to penicillin; Z79.02 Long term (current) use of antithrombotics/antiplatelets; Z88.1 Allergy status to other antibiotic agents; Z79.82 Long term (current) use of aspirin; Z79.4 Long term (current) use of insulin; Z79.899 Other long term (current) drug therapy; Z90.49 Acquired absence of other specified parts of digestive tract; Z90.89 Acquired absence of other organs; Z89.511 Acquired absence of right leg below knee; Z89.422 Acquired absence of other left toe(s); Z68.36 Body mass index [BMI] 36.0-36.9, adult
CPT/HCPCS: 36415; 36416; 36600; 70450; 70496; 70498; 70551; 71045; 80048; 80053; 80061; 80202; 82140; 82550; 82805; 83605; 83735; 84146; 84443; 84484; 85007; 85025; 85027; 85610; 85730; 87040; 90935; 93005; 93306; 95712; 95816; 95819; 95957; 96365; 96367; 96375; G0257; J0360; J0692; J1650; J1815; J2060; J2270; J2405; J3370; J3490; Q0163; Q5105; Q9967; U0002; U0005

== ENCOUNTER 2020-10-25 13:09 | Emergency (ER) | payer MEDICARE ==
[2020-10-25 13:49] LABS: #Eosinphils 0.3 thou/uL (0.0-0.7); #Lymphocytes 1.8 thou/uL (1.20-3.40); #Monocytes 0.6 thou/uL (0.11-0.59); #Neutrophils 10.1 thou/uL (1.40-6.50); %Basophils 0.1 % (0.0-1.0); %Eosinophils 2.1 % (0.0-10.0); %Lymphocytes 13.8 % (21.0-51.0); %Neutrophils 78.9 % (42.0-75.0); Hemoglobin 10.5 g/dL (14.0-18.0); Mean Corpuscular HGB CONC 34.1 g/dL (32.0-36.0); Mean Corpuscular Hemoglobin 32.4 pg (27.0-31.0); Mean Corpuscular Volume 94.9 fL (78.0-98.0); Mean Platelet Volume 7.3 fL (7.4-10.4); Platelet Count 164 thou/uL (130-400); RBC Distribution Width 12.5 % (11.5-14.5); Red Blood Cell (RBC) Count 3.25 mill/uL (4.70-6.10); White Blood Cell (WBC) Count 12.8 thou/uL (4.8-10.8)
[2020-10-25 14:13] LABS: ALT (SGPT) 15 U/L (8-55); AST (SGOT) 19 U/L (5-34); Albumin 3.6 g/dL (3.5-5.0); Alkaline Phosphatase 175 U/L (40-110); Anion Gap 22 mmol/L (10-20); BUN (Urea Nitrogen) 72 mg/dL (8.4-25.7); Bilirubin, Total 0.4 mg/dL (0.2-1.2); Calc. Creatinine Clearance 0 mL/min (70-130); Calcium 8.2 mg/dL (7.8-10.44); Carbon Dioxide 20 mmol/L (22-29); Chloride 97 mmol/L (98-107); Globulin 3.5 g/dL (2.4-3.5); Glucose 248 mg/dL (70-105); Protein, Total 7.1 g/dL (6.0-8.3); Sodium 134 mmol/L (136-145)
== END 2020-10-25 19:10 | disposition home or self-care (01) ==
LOC: ERS 13:09
DX: R53.1 Weakness (principal); E78.5 Hyperlipidemia, unspecified; I12.9 Hypertensive chronic kidney disease with stage 1 through stage 4 chronic kidney disease, or unspecified chronic kidney disease; E11.22 Type 2 diabetes mellitus with diabetic chronic kidney disease; N18.9 Chronic kidney disease, unspecified; Z99.2 Dependence on renal dialysis; Z79.82 Long term (current) use of aspirin; Z79.02 Long term (current) use of antithrombotics/antiplatelets; Z79.899 Other long term (current) drug therapy; Z86.73 Personal history of transient ischemic attack (TIA), and cerebral infarction without residual deficits
CPT/HCPCS: 36415; 71045; 80053; 82010; 83605; 85025; 87040; 87149

== ENCOUNTER 2021-03-17 15:43 | Outpatient (CLI) | payer MEDICARE ==
[2021-03-18 12:08] LABS: SARS-CoV-2 PCR by NAA Not Detected (NotDetected)
== END 2021-03-17 15:44 | disposition home or self-care (01) ==
LOC: LABBT 15:43
PROVIDERS: ATTEND Ophthalmology Retina Specialist
DX: Z01.812 Encounter for preprocedural laboratory examination (principal); Z20.822 Contact with and (suspected) exposure to COVID-19
CPT/HCPCS: U0003; U0005

== ENCOUNTER 2021-03-22 09:12 | Day surgery (SDC) | payer MEDICARE ==
[2021-03-18 15:12] VITALS: BMI 37.5
[~2021-03-22 09:12] MED LIST changes: +EPINEPHrine 0.3 MG in Ophthalmic Irrigation Solution 500 ML IRR SCH; +Famotidine/PF 20 mg/2ml Vial ONE; +Fentanyl 100 MCG/2 ML VIAL ONE; -Iopamidol-370 76% 500 ML 1 ML ONE; +Midazolam HCl 2 mg/2 ml Vial ONE
[2021-03-22] MEDS ORDERED: Phenylephrine 2.5% Ophth Soln 5 ML BOT ONE (09:24)
[2021-03-22] MEDS ORDERED: Cyclopentolate 1% Opth Drop 2 ML BOT ONE (09:24)
[2021-03-22] MEDS ORDERED: ePHEDrine 50 MG/ML VIAL ONE (10:50)
[2021-03-22] MEDS ORDERED: Ondansetron PF 4 MG/2 ML Vial ONE (10:50)
[2021-03-22] MEDS ORDERED: Lidocaine 4% PF 5 ML AMP ONE (10:50)
[2021-03-22] MEDS ORDERED: PROPOFOL 200 MG/20 ML VIAL ONE (10:50)
[2021-03-22] MEDS ORDERED: PHENYLEPHRINE-NS 100 MCG/ML 10 ML SYRINGE ONE (10:50)
[2021-03-22] MEDS ORDERED: Metoclopramide HCl 10 MG/2 ML VIAL ONE (10:50)
[2021-03-22] MEDS ORDERED: Triamcinolone 40 MG/ML VIAL ONE (10:50)
[2021-03-22] MEDS ORDERED: Bupivacaine PF 0.75% SDV 10 ML ONE (10:50)
[2021-03-22] MEDS ORDERED: Lidocaine 1% PF 5 ML VIAL ONE (10:50)
[2021-03-22] MEDS ORDERED: Maxitrol 0.1% Opth Oint 3.5 GM TUBE ONE (10:50)
== END 2021-03-22 13:39 | disposition home or self-care (01) ==
LOC: SDC 09:12
PROVIDERS: ATTEND Ophthalmology Retina Specialist
PROC: 08T53ZZ Resection of Left Vitreous, Percutaneous Approach (ICD-10-PCS; principal; 2021-03-22)
PROC: 08PK3JZ Removal of Synthetic Substitute from Left Lens, Percutaneous Approach (ICD-10-PCS; 2021-03-22)
PROC: 08RK3JZ Replacement of Left Lens with Synthetic Substitute, Percutaneous Approach (ICD-10-PCS; 2021-03-22)
DX: H27.132 Posterior dislocation of lens, left eye (principal); H43.392 Other vitreous opacities, left eye; Z79.02 Long term (current) use of antithrombotics/antiplatelets; Z79.4 Long term (current) use of insulin; Z79.82 Long term (current) use of aspirin; Z79.899 Other long term (current) drug therapy; Z88.0 Allergy status to penicillin; Z88.1 Allergy status to other antibiotic agents
CPT/HCPCS: 36416; J0171; J2250; J2405; J2704; J2765; J3010; J3301; J3490; S0028; V2632

== ENCOUNTER 2021-04-21 16:06 | Emergency (ER) | payer MEDICARE ==
[2021-04-21] MEDS ORDERED: Proparacaine 0.5% Opth 15 ML BOT ONE (17:15)
[2021-04-21] MEDS ORDERED: Fluorescein Opthalmic Strip ONE (17:15)
[2021-04-21] MEDS ORDERED: HYDROcodone/Acetaminophen 5/325 mg Tablet ONE (17:17)
[2021-04-21] MEDS ORDERED: Morphine 4 MG/ML VIAL ONE (17:40)
[2021-04-21] MEDS ORDERED: Ketorolac Tromethamine 30 MG/ML VIAL ONE (17:41)
[2021-04-21] MEDS ORDERED: Tropicamide 1% 15 ML BOTTLE OP SCH (18:30)
[2021-04-21] MEDS ORDERED: PHENYLephrine 2.5% Ophth Soln 15 ml Bottle OP SCH (18:30)
== END 2021-04-21 19:37 | disposition home or self-care (01) ==
LOC: ERS 16:06
DX: H59.022 Cataract (lens) fragments in eye following cataract surgery, left eye (principal); I10 Essential (primary) hypertension; E11.9 Type 2 diabetes mellitus without complications; E78.5 Hyperlipidemia, unspecified; Z79.82 Long term (current) use of aspirin; Z79.899 Other long term (current) drug therapy
CPT/HCPCS: 96372; 99283; J1885; J2270

== ENCOUNTER 2021-04-28 13:32 | Emergency (ER) | payer MEDICARE ==
[2021-04-28 16:22] LABS: #Eosinphils 0.3 thou/uL (0.0-0.7); #Monocytes 0.8 thou/uL (0.11-0.59); %Basophils 0.1 % (0.0-1.0); %Eosinophils 2.6 % (0.0-10.0); %Lymphocytes 18.2 % (21.0-51.0); %Monocytes 7.3 % (0.0-10.0); %Neutrophils 71.7 % (42.0-75.0); Hemoglobin 12.9 g/dL (14.0-18.0); Mean Corpuscular HGB CONC 34.1 g/dL (32.0-36.0); Mean Corpuscular Hemoglobin 32.5 pg (27.0-31.0); Mean Corpuscular Volume 95.2 fL (78.0-98.0); Mean Platelet Volume 7.2 fL (7.4-10.4); Platelet Count 241 thou/uL (130-400); RBC Distribution Width 13.4 % (11.5-14.5); Red Blood Cell (RBC) Count 3.98 mill/uL (4.70-6.10); White Blood Cell (WBC) Count 11.1 thou/uL (4.8-10.8)
[2021-04-28] MEDS ORDERED: Clindamycin/D5W 600 mg/50 ml Premix Bag ONE (16:26)
[2021-04-28 16:42] LABS: ALT (SGPT) 15 U/L (8-55); AST (SGOT) 13 U/L (5-34); Albumin 3.9 g/dL (3.5-5.0); Alkaline Phosphatase 181 U/L (40-110); Anion Gap 18 mmol/L (10-20); BUN (Urea Nitrogen) 36 mg/dL (8.4-25.7); Bilirubin, Total 0.5 mg/dL (0.2-1.2); Calc. Creatinine Clearance 0 mL/min (70-130); Calcium 9.3 mg/dL (7.8-10.44); Carbon Dioxide 27 mmol/L (22-29); Chloride 97 mmol/L (98-107); Glucose 188 mg/dL (70-105); Potassium 4.5 mmol/L (3.5-5.1); Protein, Total 7.9 g/dL (6.0-8.3); Sodium 137 mmol/L (136-145)
[2021-04-28] MEDS ORDERED: Clindamycin/D5W 900 mg/50 ml Premix Bag ONE (16:45)
[2021-04-28] MEDS ORDERED: Acetaminophen 500 MG TAB ONE (17:05)
[2021-04-28] MEDS ORDERED: Clindamycin 300 MG/2 ML VIAL IM SCH (17:15)
== END 2021-04-28 17:51 | disposition home or self-care (01) ==
LOC: ERS 13:32
DX: L03.012 Cellulitis of left finger (principal); I10 Essential (primary) hypertension; E11.9 Type 2 diabetes mellitus without complications; Z79.82 Long term (current) use of aspirin; Z79.899 Other long term (current) drug therapy
CPT/HCPCS: 36415; 80053; 83605; 85025; 87040; 96372; 99283; J3490

== ENCOUNTER 2021-04-30 08:58 | Inpatient (IN) | payer MEDICARE ==
[2021-04-30 09:55] LABS: #Eosinphils 0.3 thou/uL (0.0-0.7); #Lymphocytes 2.1 thou/uL (1.20-3.40); #Monocytes 0.8 thou/uL (0.11-0.59); #Neutrophils 7.9 thou/uL (1.40-6.50); %Basophils 0.2 % (0.0-1.0); %Eosinophils 2.5 % (0.0-10.0); %Lymphocytes 18.8 % (21.0-51.0); %Monocytes 6.9 % (0.0-10.0); %Neutrophils 71.7 % (42.0-75.0); Hemoglobin 12.2 g/dL (14.0-18.0); Mean Corpuscular HGB CONC 31.3 g/dL (32.0-36.0); Mean Corpuscular Hemoglobin 30.1 pg (27.0-31.0); Mean Corpuscular Volume 96.1 fL (78.0-98.0); Mean Platelet Volume 7.1 fL (7.4-10.4); Platelet Count 220 thou/uL (130-400); RBC Distribution Width 13.4 % (11.5-14.5); Red Blood Cell (RBC) Count 4.06 mill/uL (4.70-6.10)
[2021-04-30 10:01] LABS: PTT 37.3 sec (22.9-36.1); Prothrombin Time 13.2 sec (12.0-14.7)
[2021-04-30 10:04] LABS: Acetaminophen Less than 6.0 mcg/mL (10.0-30.0); Alcohol Less than 10 mg/dL (Less than 10); CK (CPK) 47 U/L (30-200); Lipase 26 U/L (8-78); Salicylate Less than 8.0 mg/dL (15.0-30.0)
[2021-04-30 10:27] LABS: CKMB 0.9 ng/mL (0-6.6)
[2021-04-30 10:52] LABS: ALT (SGPT) 13 U/L (8-55); AST (SGOT) 11 U/L (5-34); Albumin 3.6 g/dL (3.5-5.0); Alkaline Phosphatase 191 U/L (40-110); Anion Gap 19 mmol/L (10-20); BUN (Urea Nitrogen) 32 mg/dL (8.4-25.7); Bilirubin, Total 0.4 mg/dL (0.2-1.2); Calc. Creatinine Clearance 0 mL/min (70-130); Calcium 8.2 mg/dL (7.8-10.44); Carbon Dioxide 21 mmol/L (22-29); Chloride 96 mmol/L (98-107); Globulin 3.3 g/dL (2.4-3.5); Glucose 338 mg/dL (70-105); Potassium 4.3 mmol/L (3.5-5.1); Protein, Total 6.9 g/dL (6.0-8.3); Sodium 132 mmol/L (136-145)
[2021-04-30 11:36] LABS: SARS-CoV-2 NAA Rapid Test Not Detected (NotDetected)
[2021-04-30] MEDS ORDERED: Ondansetron ODT 4 MG TAB SL PRN (11:45)
[2021-04-30] MEDS ORDERED: Ondansetron PF 4 MG/2 ML Vial IVP PRN (11:45)
[2021-04-30] MEDS ORDERED: Acetaminophen 325 MG TAB PO PRN (11:45)
[2021-04-30] MEDS ORDERED: Vancomycin 1 GM/200 ML BAG ONE (12:05)
[2021-04-30] MEDS ORDERED: Piperacillin/Tazobactam 4.5 GM VIAL ONE (12:07)
[2021-04-30 12:50] LABS: Troponin I 0.042 ng/mL (< 0.028)
[2021-04-30] MEDS ORDERED: Dextrose 50% Abboject 50 ML SYRINGE SLOW IVP PRN (13:35)
[2021-04-30] MEDS ORDERED: Dextrose 5% in Water 1,000 ML IV PRN (13:35)
[2021-04-30] MEDS ORDERED: Morphine 4 MG/ML VIAL SLOW IVP PRN (13:37)
[2021-04-30] MEDS ORDERED: Lantus 1000 UNITS/10 ML VIAL SC SCH (13:45)
[2021-04-30] MEDS ORDERED: Vancomycin 1 GM in Premix Bag 1 BAG IVPB SCH ×2 (13:45→14:00)
[2021-04-30] MEDS ORDERED: Fentanyl 100 MCG/2 ML VIAL ONE (13:54)
[2021-04-30] MEDS ORDERED: hydrALAZINE 20 MG/ML VIAL ONE (13:55)
[2021-04-30] MEDS ORDERED: Vancomycin HCl 750 MG in Sodium Chloride 0.9% 250 ML 250 ML IVPB SCH (14:00)
[2021-04-30] MEDS ORDERED: Vancomycin HCl 1.25 GM in Sodium Chloride 0.9% 250 ML 250 ML IVPB SCH (14:00)
[2021-04-30] MEDS ORDERED: Meropenem 1 GM in Sodium Chloride 0.9% 100 ML IVPB SCH (14:00)
[2021-04-30] MEDS ORDERED: HOLD VANCOMYCIN FOR LEVEL >20 FS SCH (14:00)
[2021-04-30] MEDS ORDERED: Vancomycin HCl 500 MG in Sodium Chloride 0.9% 100 ML IVPB SCH (14:00)
[2021-04-30] MEDS ORDERED: Bacitracin Zinc Ointment 30 gm TUBE ONE (14:05)
[2021-04-30] MEDS ORDERED: Bupivacaine PF 0.5% 30 ML VIAL ONE (14:05)
[2021-04-30] MEDS ORDERED: Neomycin-Polymyxin 1 ML AMP ONE (14:05)
[2021-04-30] MEDS ORDERED: ePHEDrine 50 MG/ML VIAL ONE (15:03)
[2021-04-30] MEDS ORDERED: Lidocaine 1% PF 5 ML VIAL ONE (15:03)
[2021-04-30] MEDS ORDERED: PROPOFOL 200 MG/20 ML VIAL ONE (15:03)
[2021-04-30] MEDS ORDERED: Ondansetron PF 4 MG/2 ML Vial ONE (15:03)
[2021-04-30] MEDS ORDERED: Atropine Sulfate 1% Ophth Soln 5 ml Bottle L EYE SCH (15:15)
[2021-04-30] MEDS ORDERED: Promethazine HCl 25 MG/ML VIAL IM PRN (16:04)
[2021-04-30] MEDS ORDERED: Promethazine HCl 25 MG/ML VIAL IVPB PRN (16:04)
[2021-04-30] MEDS: Heparin 5,000 UNITS/ML VIAL SC SCH ×2 (16:55→20:51)
[2021-04-30] MEDS: Morphine 4 MG/ML VIAL SLOW IVP PRN (17:08)
[2021-04-30 17:22] VITALS: BMI 32.3
[2021-04-30 17:33] LABS: Troponin I 0.047 ng/mL (< 0.028)
[2021-04-30] MEDS: oxyCODONE/Acetaminophen 5 mg/325 mg Tablet PO PRN (18:21)
[2021-04-30] MEDS ORDERED: Atropine Sulfate 1% Ophth Soln 5 ml Bottle EA EYE SCH (21:00)
[2021-04-30] MEDS ORDERED: HYDROcodone/Acetaminophen 5/325 mg Tablet PO SCH (23:29)
[2021-05-01] MEDS: oxyCODONE/Acetaminophen 5 mg/325 mg Tablet PO PRN (05:43)
[2021-05-01 06:28] LABS: #Eosinphils 0.2 thou/uL (0.0-0.7); #Lymphocytes 2.1 thou/uL (1.20-3.40); #Monocytes 0.8 thou/uL (0.11-0.59); %Basophils 0.1 % (0.0-1.0); %Monocytes 7.4 % (0.0-10.0); %Neutrophils 71.5 % (42.0-75.0); Hemoglobin 11.2 g/dL (14.0-18.0); Mean Corpuscular HGB CONC 33.5 g/dL (32.0-36.0); Mean Corpuscular Hemoglobin 32.2 pg (27.0-31.0); Mean Corpuscular Volume 95.9 fL (78.0-98.0); Mean Platelet Volume 6.7 fL (7.4-10.4); Platelet Count 223 thou/uL (130-400); RBC Distribution Width 13.4 % (11.5-14.5); Red Blood Cell (RBC) Count 3.47 mill/uL (4.70-6.10); White Blood Cell (WBC) Count 11.1 thou/uL (4.8-10.8)
[2021-05-01 06:51] LABS: Anion Gap 17 mmol/L (10-20); BUN (Urea Nitrogen) 39 mg/dL (8.4-25.7); Calc. Creatinine Clearance 14 mL/min (70-130); Calcium 8.4 mg/dL (7.8-10.44); Carbon Dioxide 23 mmol/L (22-29); Chloride 97 mmol/L (98-107); Glucose 116 mg/dL (70-105); Potassium 4.1 mmol/L (3.5-5.1); Sodium 133 mmol/L (136-145)
[2021-05-01] MEDS: Morphine 4 MG/ML VIAL SLOW IVP PRN ×2 (07:25→15:40)
[2021-05-01] MEDS ORDERED: Atropine Sulfate 1% Ophth Soln 5 ml Bottle L EYE SCH (09:15)
[2021-05-01] MEDS ORDERED: diphenhydrAMINE 25 MG in Sodium Chloride 0.9% 50 ML IVPB SCH (10:15)
[2021-05-01] MEDS ORDERED: Lacosamide 50 mg Tablet PO SCH (10:15)
[2021-05-01] MEDS ORDERED: Amlodipine 10 MG TAB PO SCH (10:15)
[2021-05-01] MEDS ORDERED: Aspirin 81 mg Enteric Coated Tablet PO SCH (10:15)
[2021-05-01] MEDS ORDERED: Clopidogrel Bisulfate 75 MG TAB PO SCH (10:15)
[2021-05-01] MEDS ORDERED: hydrALAZINE 25 MG TAB PO SCH (10:30)
[2021-05-01] MEDS ORDERED: levETIRAcetam 500 MG TAB PO SCH (10:30)
[2021-05-01] MEDS: Heparin 5,000 UNITS/ML VIAL SC SCH ×3 (10:49→21:37)
[2021-05-01] MEDS: Aspirin 81 mg Enteric Coated Tablet PO SCH (10:49)
[2021-05-01] MEDS: prednisoLONE Acet 0.12% Ophth Soln 5 ml Bottle L EYE SCH ×13 (11:03→23:38)
[2021-05-01] MEDS: HYDROcodone/Acetaminophen 5/325 mg Tablet PO PRN (13:00)
[2021-05-01] MEDS ORDERED: Meropenem 500 MG in Sodium Chloride 0.9% 100 ML IVPB SCH (14:00)
[2021-05-01] MEDS: Calcium Acetate 667 MG CAP PO SCH ×2 (15:30→21:37)
[2021-05-01] MEDS: hydrALAZINE 25 MG TAB PO SCH ×2 (15:30→21:37)
[2021-05-01] MEDS: Lantus 1000 UNITS/10 ML VIAL SC SCH (16:30)
[2021-05-01] MEDS: Brimonidine Tartrate 0.2% Ophth Soln 5 ml Bottle L EYE SCH (21:36)
[2021-05-01] MEDS: Lacosamide 50 mg Tablet PO SCH (21:39)
[2021-05-01] MEDS: levETIRAcetam 500 MG TAB PO SCH (21:40)
[2021-05-02] MEDS: prednisoLONE Acet 0.12% Ophth Soln 5 ml Bottle L EYE SCH ×24 (00:43→23:03)
[2021-05-02 05:39] LABS: #Eosinphils 0.3 thou/uL (0.0-0.7); #Lymphocytes 1.7 thou/uL (1.20-3.40); #Monocytes 0.8 thou/uL (0.11-0.59); #Neutrophils 7.9 thou/uL (1.40-6.50); %Basophils 0.3 % (0.0-1.0); %Eosinophils 2.5 % (0.0-10.0); %Lymphocytes 15.6 % (21.0-51.0); %Monocytes 7.1 % (0.0-10.0); %Neutrophils 74.6 % (42.0-75.0); Hemoglobin 11.5 g/dL (14.0-18.0); Mean Corpuscular HGB CONC 33.6 g/dL (32.0-36.0); Mean Corpuscular Hemoglobin 32.3 pg (27.0-31.0); Mean Platelet Volume 6.9 fL (7.4-10.4); Platelet Count 232 thou/uL (130-400); RBC Distribution Width 13.9 % (11.5-14.5); Red Blood Cell (RBC) Count 3.57 mill/uL (4.70-6.10); White Blood Cell (WBC) Count 10.6 thou/uL (4.8-10.8)
[2021-05-02 05:44] LABS: Anion Gap 19 mmol/L (10-20); BUN (Urea Nitrogen) 50 mg/dL (8.4-25.7); Calc. Creatinine Clearance 11 mL/min (70-130); Calcium 8.7 mg/dL (7.8-10.44); Carbon Dioxide 23 mmol/L (22-29); Chloride 97 mmol/L (98-107); Glucose 81 mg/dL (70-105); Potassium 4.6 mmol/L (3.5-5.1); Sodium 134 mmol/L (136-145)
[2021-05-02] MEDS: Morphine 4 MG/ML VIAL SLOW IVP PRN ×2 (06:23→20:33)
[2021-05-02] MEDS ORDERED: Ketorolac Tromethamine 30 MG/ML VIAL IVP SCH (09:00)
[2021-05-02] MEDS: levETIRAcetam 500 MG TAB PO SCH ×2 (09:03→20:45)
[2021-05-02] MEDS: Aspirin 81 mg Enteric Coated Tablet PO SCH (09:03)
[2021-05-02] MEDS: Amlodipine 10 MG TAB PO SCH (09:03)
[2021-05-02] MEDS: hydrALAZINE 25 MG TAB PO SCH ×3 (09:03→20:44)
[2021-05-02] MEDS: Heparin 5,000 UNITS/ML VIAL SC SCH ×3 (09:04→20:47)
[2021-05-02] MEDS: Calcium Acetate 667 MG CAP PO SCH ×3 (09:04→20:42)
[2021-05-02] MEDS: Clopidogrel Bisulfate 75 MG TAB PO SCH (09:04)
[2021-05-02] MEDS: Lacosamide 50 mg Tablet PO SCH ×2 (09:04→21:34)
[2021-05-02] MEDS: Lantus 1000 UNITS/10 ML VIAL SC SCH ×2 (09:07→18:01)
[2021-05-02 09:16] LABS: Vancomycin, Random 10.5 ug/mL (See Comment)
[2021-05-02] MEDS: Brimonidine Tartrate 0.2% Ophth Soln 5 ml Bottle L EYE SCH ×2 (09:17→20:40)
[2021-05-02] MEDS ORDERED: Fentanyl 100 MCG/2 ML VIAL IV PRN (10:41)
[2021-05-02] MEDS: HYDROcodone/Acetaminophen 5/325 mg Tablet PO PRN ×2 (11:13→23:04)
[2021-05-02] MEDS ORDERED: Meropenem 500 MG in Sodium Chloride 0.9% 100 ML IVPB SCH (17:00)
[2021-05-02] MEDS ORDERED: Acyclovir 200 mg Capsule PO SCH (17:30)
[2021-05-02] MEDS: Cyclopentolate 1% Opth Drop 2 ML BOT L EYE SCH ×2 (17:57→20:43)
[2021-05-03] MEDS: prednisoLONE Acet 0.12% Ophth Soln 5 ml Bottle L EYE SCH ×22 (01:01→23:26)
[2021-05-03] MEDS: HYDROcodone/Acetaminophen 5/325 mg Tablet PO PRN (04:48)
[2021-05-03 06:23] LABS: #Eosinphils 0.3 thou/uL (0.0-0.7); #Monocytes 0.8 thou/uL (0.11-0.59); #Neutrophils 7.1 thou/uL (1.40-6.50); %Basophils 0.4 % (0.0-1.0); %Eosinophils 2.6 % (0.0-10.0); %Lymphocytes 19.3 % (21.0-51.0); %Monocytes 8.1 % (0.0-10.0); %Neutrophils 69.6 % (42.0-75.0); Mean Corpuscular HGB CONC 32.8 g/dL (32.0-36.0); Mean Corpuscular Hemoglobin 31.5 pg (27.0-31.0); Mean Corpuscular Volume 95.8 fL (78.0-98.0); Platelet Count 230 thou/uL (130-400); RBC Distribution Width 13.8 % (11.5-14.5); Red Blood Cell (RBC) Count 3.83 mill/uL (4.70-6.10); White Blood Cell (WBC) Count 10.2 thou/uL (4.8-10.8)
[2021-05-03] MEDS: Lantus 1000 UNITS/10 ML VIAL SC SCH ×2 (08:41→18:34)
[2021-05-03] MEDS: hydrALAZINE 25 MG TAB PO SCH ×3 (09:31→20:11)
[2021-05-03] MEDS: Amlodipine 10 MG TAB PO SCH (09:32)
[2021-05-03] MEDS: Lacosamide 50 mg Tablet PO SCH ×2 (10:32→20:08)
[2021-05-03] MEDS: levETIRAcetam 500 MG TAB PO SCH ×2 (10:32→20:08)
[2021-05-03] MEDS: Heparin 5,000 UNITS/ML VIAL SC SCH ×3 (11:04→20:14)
[2021-05-03] MEDS: Calcium Acetate 667 MG CAP PO SCH ×3 (11:04→18:24)
[2021-05-03] MEDS: Cyclopentolate 1% Opth Drop 2 ML BOT L EYE SCH ×3 (11:12→20:06)
[2021-05-03] MEDS: Brimonidine Tartrate 0.2% Ophth Soln 5 ml Bottle L EYE SCH ×2 (11:47→20:05)
[2021-05-03] MEDS ORDERED: Fentanyl 100 MCG/2 ML VIAL ONE (13:39)
[2021-05-03] MEDS ORDERED: Bupivacaine PF 0.5% 30 ML VIAL ONE (13:41)
[2021-05-03] MEDS ORDERED: Phenylephrine 10 MG/ML VIAL ONE (14:17)
[2021-05-03] MEDS ORDERED: Dexamethasone 20 MG/5 ML VIAL ONE (14:17)
[2021-05-03] MEDS ORDERED: Ondansetron PF 4 MG/2 ML Vial ONE (14:17)
[2021-05-03] MEDS ORDERED: PROPOFOL 200 MG/20 ML VIAL ONE (14:17)
[2021-05-03] MEDS ORDERED: Lidocaine 1% PF 5 ML VIAL ONE (14:17)
[2021-05-03] MEDS: Clopidogrel Bisulfate 75 MG TAB PO SCH (18:24)
[2021-05-03] MEDS: HumaLOG 300 UNITS/3 ML VIAL SC PRN (21:45)
[2021-05-04] MEDS: prednisoLONE Acet 0.12% Ophth Soln 5 ml Bottle L EYE SCH ×17 (00:27→16:31)
[2021-05-04] MEDS: HumaLOG 300 UNITS/3 ML VIAL SC PRN (05:58)
[2021-05-04 08:48] LABS: Vancomycin, Random 15.5 ug/mL (See Comment)
[2021-05-04] MEDS: Calcium Acetate 667 MG CAP PO SCH ×2 (08:49→15:43)
[2021-05-04] MEDS: Heparin 5,000 UNITS/ML VIAL SC SCH ×2 (08:49→15:43)
[2021-05-04] MEDS: levETIRAcetam 500 MG TAB PO SCH (08:49)
[2021-05-04] MEDS: Amlodipine 10 MG TAB PO SCH (08:50)
[2021-05-04] MEDS: Clopidogrel Bisulfate 75 MG TAB PO SCH (08:50)
[2021-05-04] MEDS: Lantus 1000 UNITS/10 ML VIAL SC SCH ×2 (08:51→16:29)
[2021-05-04] MEDS: Brimonidine Tartrate 0.2% Ophth Soln 5 ml Bottle L EYE SCH (08:52)
[2021-05-04] MEDS: Cyclopentolate 1% Opth Drop 2 ML BOT L EYE SCH ×2 (08:52→15:45)
[2021-05-04] MEDS: Aspirin 81 mg Enteric Coated Tablet PO SCH (08:52)
[2021-05-04] MEDS: Lacosamide 50 mg Tablet PO SCH (08:56)
[2021-05-04] MEDS: hydrALAZINE 25 MG TAB PO SCH ×2 (09:05→15:43)
[2021-05-04] MEDS ORDERED: Vancomycin HCl 500 MG in Sodium Chloride 0.9% 100 ML IVPB SCH (09:30)
[2021-05-04 16:26] VITALS: BP 132/69; TEMP 97.6
== END 2021-05-04 17:28 | disposition home health service (06) | DRG 853 ==
LOC: ERS 08:58 → SDC 13:34 → SURG B 13:35
PROVIDERS: ADMIT Internal Medicine; ATTEND Internal Medicine
PROC: 0X6P0Z3 Detachment at Left Index Finger, Low, Open Approach (ICD-10-PCS; principal; 2021-04-30)
PROC: 0L9 Tendons, Drainage (ICD-10-PCS; 2021-04-30)
PROC: 5A1D70Z Performance of Urinary Filtration, Intermittent, Less than 6 Hours Per Day (ICD-10-PCS; 2021-05-02)
PROC: 0JBK0ZZ Excision of Left Hand Subcutaneous Tissue and Fascia, Open Approach (ICD-10-PCS; 2021-05-03)
DX: A41.02 Sepsis due to Methicillin resistant Staphylococcus aureus (principal); G93.41 Metabolic encephalopathy; N18.6 End stage renal disease; M86.8X4 Other osteomyelitis, hand; H20.9 Unspecified iridocyclitis; I69.354 Hemiplegia and hemiparesis following cerebral infarction affecting left non-dominant side; I12.0 Hypertensive chronic kidney disease with stage 5 chronic kidney disease or end stage renal disease; E87.1 Hypo-osmolality and hyponatremia; Z20.822 Contact with and (suspected) exposure to COVID-19; E11.69 Type 2 diabetes mellitus with other specified complication; E11.22 Type 2 diabetes mellitus with diabetic chronic kidney disease; G40.909 Epilepsy, unspecified, not intractable, without status epilepticus; E11.65 Type 2 diabetes mellitus with hyperglycemia; I44.0 Atrioventricular block, first degree; E11.40 Type 2 diabetes mellitus with diabetic neuropathy, unspecified; E11.319 Type 2 diabetes mellitus with unspecified diabetic retinopathy without macular edema; D63.1 Anemia in chronic kidney disease; R77.8 Other specified abnormalities of plasma proteins; Z88.1 Allergy status to other antibiotic agents; Z88.0 Allergy status to penicillin; Z99.2 Dependence on renal dialysis; Z79.899 Other long term (current) drug therapy; Z79.02 Long term (current) use of antithrombotics/antiplatelets; Z79.82 Long term (current) use of aspirin; Z79.4 Long term (current) use of insulin; Z90.49 Acquired absence of other specified parts of digestive tract; Z90.89 Acquired absence of other organs; Z89.422 Acquired absence of other left toe(s); Z98.42 Cataract extraction status, left eye; Z98.41 Cataract extraction status, right eye; Z98.890 Other specified postprocedural states; Z89.611 Acquired absence of right leg above knee; Z83.3 Family history of diabetes mellitus
CPT/HCPCS: 36415; 36416; 70450; 70551; 71045; 80048; 80053; 80202; 80307; 82550; 82553; 83605; 83690; 83735; 84484; 85025; 85610; 85652; 85730; 87040; 87070; 87076; 87077; 87186; 87205; 88305; 88311; 90935; 93005; 93306; 96365; G0257; J0360; J1100; J1200; J1644; J1815; J1885; J2185; J2270; J2370; J2405; J2543; J2704; J3010; J3370; J3490; S0020; U0002

== ENCOUNTER 2021-09-11 11:49 | Inpatient (IN) | payer MEDICARE ==
[2021-09-11 12:25] LABS: #Eosinphils 0.2 thou/uL (0.0-0.7); #Lymphocytes 2.3 thou/uL (1.20-3.40); #Monocytes 0.6 thou/uL (0.11-0.59); #Neutrophils 5.6 thou/uL (1.40-6.50); %Basophils 0.3 % (0.0-1.0); %Eosinophils 2.8 % (0.0-10.0); %Monocytes 7.1 % (0.0-10.0); %Neutrophils 63.9 % (42.0-75.0); Hemoglobin 12.5 g/dL (14.0-18.0); Mean Corpuscular HGB CONC 33.4 g/dL (32.0-36.0); Mean Corpuscular Hemoglobin 33.4 pg (27.0-31.0); Mean Platelet Volume 7.4 fL (7.4-10.4); Platelet Count 177 thou/uL (130-400); RBC Distribution Width 13.2 % (11.5-14.5); Red Blood Cell (RBC) Count 3.74 mill/uL (4.70-6.10); White Blood Cell (WBC) Count 8.7 thou/uL (4.8-10.8)
[2021-09-11 12:46] LABS: ALT (SGPT) 12 U/L (8-55); AST (SGOT) 15 U/L (5-34); Albumin 3.9 g/dL (3.4-4.8); Alkaline Phosphatase 123 U/L (40-110); Anion Gap 22 mmol/L (10-20); BUN (Urea Nitrogen) 43 mg/dL (8.4-25.7); Bilirubin, Total 0.5 mg/dL (0.2-1.2); Calc. Creatinine Clearance 0 mL/min (70-130); Calcium 8.6 mg/dL (7.8-10.44); Carbon Dioxide 22 mmol/L (23-31); Chloride 97 mmol/L (98-107); Globulin 3.4 g/dL (2.4-3.5); Glucose 156 mg/dL (80-115); Protein, Total 7.3 g/dL (5.8-8.1); Sodium 134 mmol/L (136-145)
[2021-09-11 12:55] LABS: Potassium 6.7 mmol/L (3.5-5.1)
[2021-09-11] MEDS ORDERED: Lorazepam 2 MG/ML VIAL ONE (12:56)
[2021-09-11] MEDS ORDERED: levETIRAcetam 500 MG/5 ML VIAL ONE (12:58)
[2021-09-11] MEDS ORDERED: CALCIUM GLUC 1GM/NS 50ML BAG ONE (13:11)
[2021-09-11] MEDS ORDERED: Calcium Gluc 4.6 MEQ/10 ML (100 MG/ML) ONE (13:12)
[2021-09-11] MEDS ORDERED: Nitroglycerin 2% Ointment 1 INCH/1 GM Packet ONE (14:15)
[2021-09-11 15:37] LABS: HBSAg Index 0.25 S/CO (0-0.99); Hep B Surf Ag Non-Reactive S/CO (NonReactive)
[2021-09-11 16:23] LABS: HBSAB Concentration Less than 8.00 mIU/mL; Hep B Surf AB Non-Reactive (NonReactive)
[2021-09-11 17:00] LABS: Troponin I 0.025 ng/mL (< 0.028)
[2021-09-11 18:12] VITALS: BMI 36.3
[2021-09-11] MEDS ORDERED: Nitroglycerin 0.4 MG TAB (25 Tab Bottle) SL PRN (19:08)
[2021-09-11] MEDS ORDERED: Ondansetron ODT 4 MG TAB PO PRN (19:08)
[2021-09-11] MEDS ORDERED: Acetaminophen 325 MG TAB PO PRN (19:08)
[2021-09-11] MEDS ORDERED: Dextrose 50% Abboject 50 ML SYRINGE SLOW IVP PRN (19:11)
[2021-09-11] MEDS ORDERED: Dextrose 5% in Water 1,000 ML IV PRN (19:11)
[2021-09-11] MEDS ORDERED: HumaLOG 300 UNITS/3 ML VIAL SC PRN ×2 (19:11)
[2021-09-11] MEDS ORDERED: HYDROcodone/Acetaminophen 5/325 mg Tablet PO PRN (19:22)
[2021-09-11 20:02] LABS: Troponin I 0.021 ng/mL (< 0.028)
[2021-09-11] MEDS: prednisoLONE Acet 0.12% Ophth Soln 5 ml Bottle L EYE SCH ×3 (21:05→23:01)
[2021-09-11] MEDS: Cyclopentolate 1% Opth Drop 2 ML BOT L EYE SCH (21:06)
[2021-09-11] MEDS: Calcium Acetate 667 MG CAP PO SCH (21:07)
[2021-09-11] MEDS: hydrALAZINE 25 MG TAB PO SCH (21:09)
[2021-09-11] MEDS: Lacosamide 50 mg Tablet PO SCH (21:10)
[2021-09-11] MEDS: Heparin 5,000 UNITS/ML VIAL SC SCH (21:10)
[2021-09-11] MEDS: levETIRAcetam 500 MG TAB PO SCH (21:10)
[2021-09-11 22:21] LABS: SARS-CoV-2 PCR by NAA Not Detected (NotDetected)
[2021-09-11 22:21] LABS: Anion Gap 18 mmol/L (10-20); BUN (Urea Nitrogen) 24 mg/dL (8.4-25.7); Calc. Creatinine Clearance 21 mL/min (70-130); Calcium 8.7 mg/dL (7.8-10.44); Carbon Dioxide 28 mmol/L (23-31); Chloride 95 mmol/L (98-107); Glucose 160 mg/dL (80-115); Potassium 5.4 mmol/L (3.5-5.1); Sodium 136 mmol/L (136-145)
[2021-09-12 05:51] LABS: Hemoglobin A1c 8.3 % (4.0-6.0)
[2021-09-12 06:03] LABS: Cardiac Risk 6.7 (Less than 4.5); Cholesterol 181 mg/dl (< 200 Desired); HDL Cholesterol 27 mg/dL (>60 Neg Risk); LDL Cholesterol, Calculated 119 mg/dL; Magnesium 2.3 mg/dL (1.6-2.6); Triglycerides 175 mg/dL (Less than 150)
[2021-09-12] MEDS ORDERED: Insulin Glargine 30 UNITS/0.3 ML VIAL SC SCH ×2 (07:30→15:45)
[2021-09-12] MEDS: Clopidogrel Bisulfate 75 MG TAB PO SCH (08:01)
[2021-09-12] MEDS: hydrALAZINE 25 MG TAB PO SCH ×3 (08:01→22:02)
[2021-09-12] MEDS: Amlodipine 10 MG TAB PO SCH (08:01)
[2021-09-12] MEDS: Heparin 5,000 UNITS/ML VIAL SC SCH ×3 (08:01→22:03)
[2021-09-12] MEDS: FLUoxetine HCl 20 MG CAP PO SCH (08:01)
[2021-09-12] MEDS: Aspirin 81 mg Enteric Coated Tablet PO SCH (08:01)
[2021-09-12] MEDS: levETIRAcetam 500 MG TAB PO SCH ×2 (08:02→22:03)
[2021-09-12] MEDS: Cholecalciferol 1,000 UNITS (25 MCG) TAB PO SCH (08:06)
[2021-09-12] MEDS: Calcium Acetate 667 MG CAP PO SCH ×3 (08:06→22:02)
[2021-09-12] MEDS: Lacosamide 50 mg Tablet PO SCH (08:09)
[2021-09-12] MEDS: Cyclopentolate 1% Opth Drop 2 ML BOT L EYE SCH ×3 (08:21→22:00)
[2021-09-12] MEDS: prednisoLONE Acet 0.12% Ophth Soln 5 ml Bottle L EYE SCH ×13 (12:48→23:38)
[2021-09-12] MEDS ORDERED: HumaLOG 300 UNITS/3 ML VIAL SC PRN (15:36)
[2021-09-12 17:00] LABS: Anion Gap 16 mmol/L (10-20); BUN (Urea Nitrogen) 18 mg/dL (8.4-25.7); Calc. Creatinine Clearance 26 mL/min (70-130); Calcium 8.7 mg/dL (7.8-10.44); Carbon Dioxide 27 mmol/L (23-31); Chloride 96 mmol/L (98-107); Glucose 298 mg/dL (80-115); Potassium 4.6 mmol/L (3.5-5.1); Sodium 134 mmol/L (136-145)
[2021-09-12] MEDS ORDERED: Folic Acid/Vit B Comp W-C PO SCH (21:00)
[2021-09-13] MEDS: prednisoLONE Acet 0.12% Ophth Soln 5 ml Bottle L EYE SCH ×12 (02:03→14:03)
[2021-09-13 05:26] LABS: #Basophils 0.1 thou/uL (0.0-0.2); #Eosinphils 0.2 thou/uL (0.0-0.7); #Lymphocytes 2.4 thou/uL (1.20-3.40); #Monocytes 0.7 thou/uL (0.11-0.59); #Neutrophils 5.6 thou/uL (1.40-6.50); %Basophils 0.6 % (0.0-1.0); %Eosinophils 2.1 % (0.0-10.0); %Lymphocytes 26.7 % (21.0-51.0); %Monocytes 8.2 % (0.0-10.0); %Neutrophils 62.4 % (42.0-75.0); Hemoglobin 11.8 g/dL (14.0-18.0); Mean Corpuscular HGB CONC 33.6 g/dL (32.0-36.0); Mean Corpuscular Hemoglobin 33.4 pg (27.0-31.0); Mean Corpuscular Volume 99.6 fL (78.0-98.0); Mean Platelet Volume 7.7 fL (7.4-10.4); Platelet Count 165 thou/uL (130-400); RBC Distribution Width 13.2 % (11.5-14.5); Red Blood Cell (RBC) Count 3.54 mill/uL (4.70-6.10)
[2021-09-13 05:53] LABS: Anion Gap 16 mmol/L (10-20); BUN (Urea Nitrogen) 27 mg/dL (8.4-25.7); Calc. Creatinine Clearance 20 mL/min (70-130); Calcium 8.7 mg/dL (7.8-10.44); Carbon Dioxide 28 mmol/L (23-31); Chloride 96 mmol/L (98-107); Glucose 121 mg/dL (80-115); Potassium 4.6 mmol/L (3.5-5.1); Sodium 135 mmol/L (136-145)
[2021-09-13] MEDS: hydrALAZINE 25 MG TAB PO SCH (08:11)
[2021-09-13] MEDS: Amlodipine 10 MG TAB PO SCH (08:11)
[2021-09-13] MEDS ORDERED: Regadenoson 0.4 MG/5 ML SYRINGE ONE (08:40)
[2021-09-13] MEDS: Heparin 5,000 UNITS/ML VIAL SC SCH (10:45)
[2021-09-13] MEDS: Clopidogrel Bisulfate 75 MG TAB PO SCH (10:45)
[2021-09-13] MEDS: Aspirin 81 mg Enteric Coated Tablet PO SCH (10:45)
[2021-09-13 11:24] VITALS: BP 123/58; TEMP 98
[2021-09-13] MEDS: Calcium Acetate 667 MG CAP PO SCH (11:25)
[2021-09-13] MEDS: Cholecalciferol 1,000 UNITS (25 MCG) TAB PO SCH (11:25)
[2021-09-13] MEDS: levETIRAcetam 500 MG TAB PO SCH (11:25)
[2021-09-13] MEDS: FLUoxetine HCl 20 MG CAP PO SCH (11:25)
[2021-09-13] MEDS: Cyclopentolate 1% Opth Drop 2 ML BOT L EYE SCH (11:27)
[2021-09-13] MEDS ORDERED: Icosapent Ethyl 1 GM CAPSULE PO SCH (17:00)
[2021-09-13] MEDS ORDERED: Atorvastatin Calcium 40 MG TAB PO SCH (21:00)
== END 2021-09-13 15:13 | disposition home or self-care (01) | DRG 100 ==
LOC: ERS 11:49 → 2SW 14:47 → OBSVTOIN 09-13 13:16
PROVIDERS: ADMIT Internal Medicine; ATTEND Internal Medicine
PROC: 5A1D70Z Performance of Urinary Filtration, Intermittent, Less than 6 Hours Per Day (ICD-10-PCS; principal; 2021-09-12)
DX: G40.909 Epilepsy, unspecified, not intractable, without status epilepticus (principal); N18.6 End stage renal disease; I12.0 Hypertensive chronic kidney disease with stage 5 chronic kidney disease or end stage renal disease; I69.954 Hemiplegia and hemiparesis following unspecified cerebrovascular disease affecting left non-dominant side; Z20.822 Contact with and (suspected) exposure to COVID-19; E11.22 Type 2 diabetes mellitus with diabetic chronic kidney disease; E87.5 Hyperkalemia; E78.5 Hyperlipidemia, unspecified; I44.1 Atrioventricular block, second degree; E11.51 Type 2 diabetes mellitus with diabetic peripheral angiopathy without gangrene; Z88.0 Allergy status to penicillin; Z99.2 Dependence on renal dialysis; Z88.1 Allergy status to other antibiotic agents; Z90.49 Acquired absence of other specified parts of digestive tract; Z90.09 Acquired absence of other part of head and neck; Z89.511 Acquired absence of right leg below knee
CPT/HCPCS: 36415; 36416; 71045; 78452; 80048; 80053; 80061; 83036; 83605; 83735; 84443; 84484; 85025; 85652; 86140; 86706; 87040; 87340; 90935; 93005; 93017; 94760; A9500; G0257; J0610; J1644; J1815; J1953; J2060; J2785; Q0162; U0003; U0005

== ENCOUNTER 2021-12-06 20:28 | Observation (INO) | payer MEDICARE ==
[2021-12-06 21:02] LABS: #Basophils 0.1 thou/uL (0.0-0.2); #Eosinphils 0.2 thou/uL (0.0-0.7); #Lymphocytes 0.3 thou/uL (1.20-3.40); #Monocytes 0.4 thou/uL (0.11-0.59); #Neutrophils 8.2 thou/uL (1.40-6.50); %Basophils 1.4 % (0.0-1.0); %Eosinophils 2.4 % (0.0-10.0); %Lymphocytes 3.4 % (21.0-51.0); %Neutrophils 88.8 % (42.0-75.0); Hemoglobin 12.8 g/dL (14.0-18.0); Mean Corpuscular Hemoglobin 32.6 pg (27.0-31.0); Mean Corpuscular Volume 98.7 fL (78.0-98.0); Mean Platelet Volume 8.7 fL (7.4-10.4); Platelet Count 127 thou/uL (130-400); RBC Distribution Width 12.3 % (11.5-14.5); Red Blood Cell (RBC) Count 3.91 mill/uL (4.70-6.10); White Blood Cell (WBC) Count 9.2 thou/uL (4.8-10.8)
[2021-12-06 21:17] LABS: Acetaminophen Less than 10.0 mcg/mL (10.0-30.0); Alcohol Less than 10 mg/dL (Less than 10); Salicylate Less than 8.0 mg/dL (15.0-30.0)
[2021-12-06 21:18] LABS: ALT (SGPT) 11 U/L (8-55); AST (SGOT) 13 U/L (5-34); Alkaline Phosphatase 224 U/L (40-110); Anion Gap 19 mmol/L (10-20); BUN (Urea Nitrogen) 55 mg/dL (8.4-25.7); Bilirubin, Total 0.7 mg/dL (0.2-1.2); Calc. Creatinine Clearance 0 mL/min (70-130); Calcium 8.2 mg/dL (7.8-10.44); Carbon Dioxide 24 mmol/L (23-31); Chloride 89 mmol/L (98-107); Estimated GFR 8; Globulin 3.5 g/dL (2.4-3.5); Magnesium 2.1 mg/dL (1.6-2.6); Phosphorus 6.5 mg/dL (2.3-4.7); Potassium 5.3 mmol/L (3.5-5.1); Protein, Total 7.5 g/dL (5.8-8.1); Sodium 127 mmol/L (136-145)
[2021-12-06 21:23] LABS: Glucose 744 mg/dL (80-115)
[2021-12-06 21:40] LABS: CKMB 2.5 ng/mL (0-6.6)
[2021-12-06] MEDS ORDERED: Insulin Regular 300 UNITS/3 ML VIAL ONE (21:52)
[2021-12-06] MEDS ORDERED: Ondansetron PF 4 MG/2 ML Vial IVP PRN (23:15)
[2021-12-06] MEDS ORDERED: Acetaminophen 325 MG TAB PO PRN (23:15)
[2021-12-06] MEDS ORDERED: HYDROcodone/Acetaminophen 5/325 mg Tablet PO SCH (23:30)
[2021-12-07] MEDS ORDERED: HYDROcodone/Acetaminophen 5/325 mg Tablet ONE (00:06)
[2021-12-07] MEDS ORDERED: levETIRAcetam 500 MG TAB PO SCH (00:30)
[2021-12-07 00:33] LABS: Troponin I 0.037 ng/mL (< 0.028)
[2021-12-07] MEDS ORDERED: Dextrose 50% Abboject 50 ML SYRINGE SLOW IVP PRN (00:53)
[2021-12-07] MEDS ORDERED: HumaLOG 300 UNITS/3 ML VIAL SC PRN ×2 (00:53)
[2021-12-07] MEDS ORDERED: Dextrose 5% in Water 1,000 ML IV PRN (00:53)
[2021-12-07] MEDS ORDERED: Insulin Glargine 30 UNITS/0.3 ML VIAL SC SCH ×2 (01:00→21:00)
[2021-12-07] MEDS ORDERED: hydrALAZINE 20 MG/ML VIAL SLOW IVP PRN (01:01)
[2021-12-07 02:04] VITALS: BMI 38.9
[2021-12-07 03:31] LABS: #Eosinphils 0.1 thou/uL (0.0-0.7); #Lymphocytes 0.6 thou/uL (1.20-3.40); #Monocytes 0.3 thou/uL (0.11-0.59); #Neutrophils 6.4 thou/uL (1.40-6.50); %Lymphocytes 7.5 % (21.0-51.0); %Monocytes 4.5 % (0.0-10.0); Hemoglobin 10.8 g/dL (14.0-18.0); Mean Corpuscular HGB CONC 33.5 g/dL (32.0-36.0); Mean Corpuscular Hemoglobin 32.9 pg (27.0-31.0); Mean Corpuscular Volume 98.3 fL (78.0-98.0); Mean Platelet Volume 8.6 fL (7.4-10.4); Platelet Count 119 thou/uL (130-400); RBC Distribution Width 12.3 % (11.5-14.5); Red Blood Cell (RBC) Count 3.28 mill/uL (4.70-6.10); White Blood Cell (WBC) Count 7.5 thou/uL (4.8-10.8)
[2021-12-07 03:41] LABS: Anion Gap 22 mmol/L (10-20); BUN (Urea Nitrogen) 56 mg/dL (8.4-25.7); Calc. Creatinine Clearance 17 mL/min (70-130); Calcium 7.6 mg/dL (7.8-10.44); Carbon Dioxide 19 mmol/L (23-31); Chloride 95 mmol/L (98-107); Estimated GFR 8; Glucose 406 mg/dL (80-115); Magnesium 1.9 mg/dL (1.6-2.6); Phosphorus 5.8 mg/dL (2.3-4.7); Potassium 4.6 mmol/L (3.5-5.1); Sodium 131 mmol/L (136-145)
[2021-12-07 03:50] LABS: Hemoglobin A1c 10.8 % (4.0-6.0)
[2021-12-07 06:46] LABS: SARS-CoV-2 NAA Rapid Test Not Detected (NotDetected)
[2021-12-07] MEDS ORDERED: Sucroferric Oxyhydroxide [Velphoro] 500 MG Tab.Chew PO SCH (08:00)
[2021-12-07] MEDS: levETIRAcetam 500 MG TAB PO SCH ×2 (08:35→20:57)
[2021-12-07] MEDS: FLUoxetine HCl 20 MG CAP PO SCH (08:35)
[2021-12-07] MEDS: Calcium Acetate 667 MG CAP PO SCH ×3 (08:35→20:57)
[2021-12-07] MEDS: Clopidogrel Bisulfate 75 MG TAB PO SCH (08:35)
[2021-12-07] MEDS: Cholecalciferol 1,000 UNITS (25 MCG) TAB PO SCH (08:35)
[2021-12-07] MEDS: Aspirin 81 mg Enteric Coated Tablet PO SCH (08:35)
[2021-12-07] MEDS: Heparin 5,000 UNITS/ML VIAL SC SCH ×2 (08:36→20:58)
[2021-12-07 08:56] LABS: Troponin I 0.048 ng/mL (< 0.028)
[2021-12-08 04:11] LABS: #Eosinphils 0.3 thou/uL (0.0-0.7); #Lymphocytes 1.6 thou/uL (1.20-3.40); #Monocytes 0.6 thou/uL (0.11-0.59); #Neutrophils 3.6 thou/uL (1.40-6.50); %Basophils 0.1 % (0.0-1.0); %Eosinophils 5.6 % (0.0-10.0); %Lymphocytes 25.6 % (21.0-51.0); %Monocytes 9.2 % (0.0-10.0); %Neutrophils 59.5 % (42.0-75.0); Hemoglobin 12.2 g/dL (14.0-18.0); Mean Corpuscular HGB CONC 34.4 g/dL (32.0-36.0); Mean Corpuscular Hemoglobin 33.9 pg (27.0-31.0); Mean Corpuscular Volume 98.6 fL (78.0-98.0); Mean Platelet Volume 7.6 fL (7.4-10.4); Platelet Count 122 thou/uL (130-400); RBC Distribution Width 12.2 % (11.5-14.5); White Blood Cell (WBC) Count 6.1 thou/uL (4.8-10.8)
[2021-12-08 04:37] LABS: Anion Gap 15 mmol/L (10-20); BUN (Urea Nitrogen) 29 mg/dL (8.4-25.7); Calc. Creatinine Clearance 22 mL/min (70-130); Calcium 8.3 mg/dL (7.8-10.44); Carbon Dioxide 28 mmol/L (23-31); Chloride 96 mmol/L (98-107); Estimated GFR 11; Glucose 100 mg/dL (80-115); Magnesium 2.1 mg/dL (1.6-2.6); Phosphorus 5.7 mg/dL (2.3-4.7); Potassium 3.8 mmol/L (3.5-5.1); Sodium 135 mmol/L (136-145)
[2021-12-08] MEDS: FLUoxetine HCl 20 MG CAP PO SCH (09:44)
[2021-12-08] MEDS: levETIRAcetam 500 MG TAB PO SCH (09:44)
[2021-12-08] MEDS: Cholecalciferol 1,000 UNITS (25 MCG) TAB PO SCH (09:44)
[2021-12-08] MEDS: Aspirin 81 mg Enteric Coated Tablet PO SCH (09:44)
[2021-12-08] MEDS: Calcium Acetate 667 MG CAP PO SCH (09:44)
[2021-12-08] MEDS: Heparin 5,000 UNITS/ML VIAL SC SCH (09:45)
[2021-12-08] MEDS: Clopidogrel Bisulfate 75 MG TAB PO SCH (09:45)
[2021-12-08 12:03] VITALS: BP 145/63; TEMP 98.5
== END 2021-12-08 12:45 | disposition home or self-care (01) ==
LOC: ERS 20:28 → 2NO 23:10
PROVIDERS: ADMIT Internal Medicine; ATTEND Internal Medicine
DX: E11.65 Type 2 diabetes mellitus with hyperglycemia (principal); G40.909 Epilepsy, unspecified, not intractable, without status epilepticus; I12.0 Hypertensive chronic kidney disease with stage 5 chronic kidney disease or end stage renal disease; E11.22 Type 2 diabetes mellitus with diabetic chronic kidney disease; N18.6 End stage renal disease; D63.1 Anemia in chronic kidney disease; R77.8 Other specified abnormalities of plasma proteins; E87.5 Hyperkalemia; E87.1 Hypo-osmolality and hyponatremia; I69.354 Hemiplegia and hemiparesis following cerebral infarction affecting left non-dominant side; E83.39 Other disorders of phosphorus metabolism; I44.1 Atrioventricular block, second degree; Z87.891 Personal history of nicotine dependence; Z79.02 Long term (current) use of antithrombotics/antiplatelets; Z79.4 Long term (current) use of insulin; Z79.82 Long term (current) use of aspirin; Z79.899 Other long term (current) drug therapy; Z88.0 Allergy status to penicillin; Z88.1 Allergy status to other antibiotic agents; Z99.2 Dependence on renal dialysis; Z89.422 Acquired absence of other left toe(s); Z89.511 Acquired absence of right leg below knee; Z20.822 Contact with and (suspected) exposure to COVID-19
CPT/HCPCS: 0241U; 70450; 71045; 80048 ×2; 80053; 80307; 82010; 82553; 82962 ×3; 83036; 83605; 83735 ×3; 84100 ×3; 84484 ×3; 85025 ×3; 87040; 93005 ×2; 96361; 96374; 99285; 36415; 36416; 90935; 93010; 96372; G0257; G0378; J1644; J1815

== ENCOUNTER 2022-04-24 08:02 | Inpatient (IN) | payer MEDICARE ==
[2022-04-24 08:20] LABS: #Eosinphils 0.3 thou/uL (0.0-0.7); #Lymphocytes 1.9 thou/uL (1.20-3.40); #Monocytes 0.5 thou/uL (0.11-0.59); #Neutrophils 5.3 thou/uL (1.40-6.50); %Basophils 0.1 % (0.0-1.0); %Eosinophils 4.1 % (0.0-10.0); %Lymphocytes 23.6 % (21.0-51.0); %Monocytes 6.1 % (0.0-10.0); %Neutrophils 66.1 % (42.0-75.0); Hemoglobin 11.1 g/dL (14.0-18.0); Mean Corpuscular HGB CONC 33.8 g/dL (32.0-36.0); Mean Corpuscular Volume 94.8 fl (78.0-98.0); Platelet Count 184 10x3/uL (130-400); RBC Distribution Width 12.5 % (11.5-14.5); Red Blood Cell (RBC) Count 3.47 mill/uL (4.70-6.10); White Blood Cell (WBC) Count 8.1 10x3/uL (4.8-10.8)
[2022-04-24 08:31] LABS: INR-International Normal Ratio 0.9; PTT 32.8 sec (22.9-36.1)
[2022-04-24 08:40] LABS: ALT (SGPT) 10 U/L (8-55); AST (SGOT) 16 U/L (5-34); Albumin 3.7 g/dL (3.4-4.8); Alkaline Phosphatase 187 U/L (40-110); Anion Gap 19 mmol/L (10-20); BUN (Urea Nitrogen) 40 mg/dL (8.4-25.7); Bilirubin, Total 0.5 mg/dL (0.2-1.2); Calc. Creatinine Clearance 0 mL/min (70-130); Calcium 8.6 mg/dL (7.8-10.44); Carbon Dioxide 23 mmol/L (23-31); Chloride 99 mmol/L (98-107); Estimated GFR 9; Globulin 3.7 g/dL (2.4-3.5); Glucose 334 mg/dL (80-115); Lipase 41 U/L (8-78); Magnesium 2.3 mg/dL (1.6-2.6); Potassium 4.7 mmol/L (3.5-5.1); Protein, Total 7.4 g/dL (5.8-8.1); Sodium 136 mmol/L (136-145)
[2022-04-24 09:02] LABS: CKMB 2.5 ng/mL (0-6.6)
[2022-04-24 09:46] LABS: SARS-CoV-2 NAA Rapid Test Not Detected (NotDetected)
[2022-04-24] MEDS ORDERED: Aspirin 300 MG Suppository ONE (09:51)
[2022-04-24] MEDS ORDERED: Ondansetron PF 4 MG/2 ML Vial IVP PRN (11:56)
[2022-04-24] MEDS ORDERED: Dextrose 50% Abboject 50 ML SYRINGE SLOW IVP PRN (12:03)
[2022-04-24] MEDS ORDERED: Dextrose 5% in Water 1,000 ML IV PRN (12:03)
[2022-04-24] MEDS ORDERED: HumaLOG 300 UNITS/3 ML VIAL SC PRN (12:03)
[2022-04-24] MEDS ORDERED: hydrALAZINE 20 MG/ML VIAL SLOW IVP PRN (12:10)
[2022-04-24 12:23] LABS: CKMB 2.2 ng/mL (0-6.6)
[2022-04-24] MEDS ORDERED: Clopidogrel Bisulfate 75 MG TAB PO SCH (12:30)
[2022-04-24 12:40] LABS: Hemoglobin A1c 12.2 % (4.0-6.0)
[2022-04-24 12:53] LABS: Magnesium 2.4 mg/dL (1.6-2.6)
[2022-04-24] MEDS ORDERED: Iopamidol-370 76% 500 ML 1 ML ONE (13:04)
[2022-04-24] MEDS ORDERED: Clopidogrel Bisulfate 75 MG TAB ONE (13:25)
[2022-04-24] MEDS ORDERED: Heparin 5,000 UNITS/ML VIAL SC SCH (15:00)
[2022-04-24] MEDS: Insulin Glargine 30 UNITS/0.3 ML VIAL SC SCH (21:42)
[2022-04-25 07:27] LABS: #Eosinphils 0.4 thou/uL (0.0-0.7); #Lymphocytes 2.3 thou/uL (1.20-3.40); #Monocytes 0.6 thou/uL (0.11-0.59); #Neutrophils 4.3 thou/uL (1.40-6.50); %Basophils 0.1 % (0.0-1.0); %Eosinophils 4.8 % (0.0-10.0); %Lymphocytes 30.6 % (21.0-51.0); %Monocytes 7.3 % (0.0-10.0); %Neutrophils 57.2 % (42.0-75.0); Hemoglobin 10.5 g/dL (14.0-18.0); Mean Corpuscular HGB CONC 32.6 g/dL (32.0-36.0); Mean Corpuscular Hemoglobin 31.5 pg (27.0-31.0); Mean Corpuscular Volume 96.5 fl (78.0-98.0); Platelet Count 177 10x3/uL (130-400); RBC Distribution Width 12.5 % (11.5-14.5); Red Blood Cell (RBC) Count 3.33 mill/uL (4.70-6.10); White Blood Cell (WBC) Count 7.4 10x3/uL (4.8-10.8)
[2022-04-25 07:51] LABS: Anion Gap 19 mmol/L (10-20); BUN (Urea Nitrogen) 53 mg/dL (8.4-25.7); Calc. Creatinine Clearance 0 mL/min (70-130); Calcium 8.1 mg/dL (7.8-10.44); Carbon Dioxide 21 mmol/L (23-31); Cardiac Risk 4.4 (Less than 4.5); Chloride 98 mmol/L (98-107); Cholesterol 118 mg/dl (< 200 Desired); Estimated GFR 7; Glucose 217 mg/dL (80-115); HDL Cholesterol 27 mg/dL (>60 Neg Risk); LDL Cholesterol, Calculated 69 mg/dL; Potassium 4.9 mmol/L (3.5-5.1); Sodium 133 mmol/L (136-145); Triglycerides 109 mg/dL (Less than 150)
[2022-04-25] MEDS ORDERED: Epoetin (ESRD) 20,000 UNITS/ML SC SCH (08:30)
[2022-04-25] MEDS ORDERED: Clopidogrel Bisulfate 75 MG TAB ONE (08:35)
[2022-04-25] MEDS ORDERED: Aspirin 81 mg Enteric Coated Tablet ONE (08:35)
[2022-04-25] MEDS: Clopidogrel Bisulfate 75 MG TAB PO SCH (08:55)
[2022-04-25] MEDS: Aspirin 81 mg Enteric Coated Tablet PO SCH (08:55)
[2022-04-25 09:57] LABS: HBSAB Concentration Less than 8.00 mIU/mL; HBSAg Index 0.34 S/CO (0-0.99); Hep B Core Total Ab Non-Reactive (NonReactive); Hep B Core Total Index 0.15 S/CO (0-0.79); Hep B Surf AB Non-Reactive (NonReactive); Hep B Surf Ag Non-Reactive S/CO (NonReactive)
[2022-04-25 09:58] LABS: Hep C IgG Ab Non-Reactive (NonReactive); Hep C Index 0.15 S/CO (0-0.79)
[2022-04-25] MEDS ORDERED: Morphine 2 MG/ML VIAL SLOW IVP PRN (11:02)
[2022-04-25] MEDS ORDERED: Morphine 4 MG/ML VIAL ONE (11:22)
[2022-04-25] MEDS ORDERED: Epoetin (ESRD) 10,000 UNITS/ML VIAL SC SCH (12:00)
[2022-04-25 18:03] VITALS: BMI 36.1
[2022-04-25] MEDS: Insulin Glargine 30 UNITS/0.3 ML VIAL SC SCH (20:20)
[2022-04-25] MEDS: HYDROcodone/Acetaminophen 5/325 mg Tablet PO PRN (20:21)
[2022-04-26] MEDS: HYDROcodone/Acetaminophen 5/325 mg Tablet PO PRN (00:34)
[2022-04-26] MEDS ORDERED: Morphine 4 MG/ML VIAL SLOW IVP PRN (01:10)
[2022-04-26 05:52] LABS: #Eosinphils 0.3 thou/uL (0.0-0.7); #Lymphocytes 2.2 thou/uL (1.20-3.40); #Monocytes 0.6 thou/uL (0.11-0.59); #Neutrophils 4.1 thou/uL (1.40-6.50); %Basophils 0.3 % (0.0-1.0); %Eosinophils 4.5 % (0.0-10.0); %Lymphocytes 30.1 % (21.0-51.0); %Monocytes 8.3 % (0.0-10.0); %Neutrophils 56.9 % (42.0-75.0); Hemoglobin 10.8 g/dL (14.0-18.0); Mean Corpuscular HGB CONC 33.1 g/dL (32.0-36.0); Mean Corpuscular Hemoglobin 32.1 pg (27.0-31.0); Mean Platelet Volume 7.9 fL (7.4-10.4); Platelet Count 178 10x3/uL (130-400); RBC Distribution Width 12.4 % (11.5-14.5); Red Blood Cell (RBC) Count 3.38 mill/uL (4.70-6.10); White Blood Cell (WBC) Count 7.2 10x3/uL (4.8-10.8)
[2022-04-26] MEDS: HumaLOG 300 UNITS/3 ML VIAL SC PRN ×2 (06:03→11:16)
[2022-04-26 06:08] LABS: Anion Gap 17 mmol/L (10-20); BUN (Urea Nitrogen) 35 mg/dL (8.4-25.7); Calc. Creatinine Clearance 19 mL/min (70-130); Calcium 8.2 mg/dL (7.8-10.44); Carbon Dioxide 25 mmol/L (23-31); Estimated GFR 10; Glucose 159 mg/dL (80-115)
[2022-04-26 06:45] LABS: Chloride 96 mmol/L (98-107); Potassium 4.4 mmol/L (3.5-5.1); Sodium 134 mmol/L (136-145)
[2022-04-26] MEDS: Clopidogrel Bisulfate 75 MG TAB PO SCH (11:18)
[2022-04-26] MEDS: Aspirin 81 mg Enteric Coated Tablet PO SCH (17:46)
[2022-04-26] MEDS ORDERED: Insulin Glargine 30 UNITS/0.3 ML VIAL SC SCH (21:00)
[2022-04-26] MEDS ORDERED: Atorvastatin Calcium 20 MG TAB PO SCH (21:00)
[2022-04-27] MEDS: HYDROcodone/Acetaminophen 5/325 mg Tablet PO PRN (00:33)
[2022-04-27] MEDS: Icosapent Ethyl 1 GM CAPSULE PO SCH ×2 (00:33→08:43)
[2022-04-27] MEDS: hydrALAZINE 25 MG TAB PO SCH ×2 (00:33→10:38)
[2022-04-27 05:36] LABS: #Eosinphils 0.3 thou/uL (0.0-0.7); #Lymphocytes 1.9 thou/uL (1.20-3.40); #Monocytes 0.6 thou/uL (0.11-0.59); #Neutrophils 4.9 thou/uL (1.40-6.50); %Basophils 0.2 % (0.0-1.0); %Eosinophils 3.6 % (0.0-10.0); %Lymphocytes 25.1 % (21.0-51.0); %Monocytes 7.5 % (0.0-10.0); %Neutrophils 63.6 % (42.0-75.0); Hemoglobin 11.3 g/dL (14.0-18.0); Mean Corpuscular HGB CONC 32.9 g/dL (32.0-36.0); Mean Corpuscular Volume 97.2 fl (78.0-98.0); Mean Platelet Volume 7.9 fL (7.4-10.4); Platelet Count 179 10x3/uL (130-400); RBC Distribution Width 12.5 % (11.5-14.5); Red Blood Cell (RBC) Count 3.52 mill/uL (4.70-6.10); White Blood Cell (WBC) Count 7.7 10x3/uL (4.8-10.8)
[2022-04-27 05:40] LABS: Anion Gap 17 mmol/L (10-20); BUN (Urea Nitrogen) 21 mg/dL (8.4-25.7); Calc. Creatinine Clearance 25 mL/min (70-130); Calcium 8.5 mg/dL (7.8-10.44); Carbon Dioxide 25 mmol/L (23-31); Chloride 96 mmol/L (98-107); Estimated GFR 14; Glucose 133 mg/dL (80-115); Sodium 134 mmol/L (136-145)
[2022-04-27] MEDS: Clopidogrel Bisulfate 75 MG TAB PO SCH (08:42)
[2022-04-27] MEDS: Aspirin 81 mg Enteric Coated Tablet PO SCH (08:42)
[2022-04-27 08:49] VITALS: TEMP 97.9
[2022-04-27] MEDS ORDERED: Cholecalciferol 1,000 UNITS (25 MCG) TAB PO SCH (09:00)
[2022-04-27 10:35] VITALS: BP 103/48
[2022-04-27] MEDS: HumaLOG 300 UNITS/3 ML VIAL SC PRN (11:11)
== END 2022-04-27 12:33 | disposition home health service (06) | DRG 69 ==
LOC: ERS 08:02 → ERHOLD 10:08 → NEURO 04-25 17:33 → OBSVTOIN 04-26 15:34
PROVIDERS: ADMIT Family Medicine; ATTEND Family Medicine
PROC: 4A10X4Z Monitoring of Central Nervous Electrical Activity, External Approach (ICD-10-PCS; principal; 2022-04-24)
PROC: 5A1D70Z Performance of Urinary Filtration, Intermittent, Less than 6 Hours Per Day (ICD-10-PCS; 2022-04-26)
DX: G45.9 Transient cerebral ischemic attack, unspecified (principal); N18.6 End stage renal disease; G93.41 Metabolic encephalopathy; I13.2 Hypertensive heart and chronic kidney disease with heart failure and with stage 5 chronic kidney disease, or end stage renal disease; I69.354 Hemiplegia and hemiparesis following cerebral infarction affecting left non-dominant side; E11.22 Type 2 diabetes mellitus with diabetic chronic kidney disease; G40.909 Epilepsy, unspecified, not intractable, without status epilepticus; F39 Unspecified mood [affective] disorder; E11.9 Type 2 diabetes mellitus without complications; D63.1 Anemia in chronic kidney disease; I50.9 Heart failure, unspecified; Z20.822 Contact with and (suspected) exposure to COVID-19; Z88.0 Allergy status to penicillin; Z88.1 Allergy status to other antibiotic agents; Z88.8 Allergy status to other drugs, medicaments and biological substances; Z89.512 Acquired absence of left leg below knee; Z90.49 Acquired absence of other specified parts of digestive tract; Z98.890 Other specified postprocedural states; Z79.4 Long term (current) use of insulin; Z79.899 Other long term (current) drug therapy; Z99.2 Dependence on renal dialysis; Z79.82 Long term (current) use of aspirin
CPT/HCPCS: 36415; 36416; 70450; 70496; 70498; 70551; 71045; 80048; 80053; 80061; 82553; 83036; 83690; 83735; 84443; 84484; 85025; 85610; 85730; 86704; 93005; 93306; 95816; 95819; 95957; J1815; J2270; Q4081; Q9967; U0002

== ENCOUNTER 2022-05-08 06:05 | Inpatient (IN) | payer MEDICARE ==
[2022-05-08] MEDS ORDERED: niCARdipine 25 MG/10 ML VIAL ONE (06:48)
[2022-05-08 07:33] LABS: #Eosinphils 0.3 thou/uL (0.0-0.7); #Lymphocytes 1.4 thou/uL (1.20-3.40); #Monocytes 0.5 thou/uL (0.11-0.59); #Neutrophils 5.9 thou/uL (1.40-6.50); %Basophils 0.1 % (0.0-1.0); %Eosinophils 3.9 % (0.0-10.0); %Lymphocytes 17.4 % (21.0-51.0); %Monocytes 6.3 % (0.0-10.0); %Neutrophils 72.3 % (42.0-75.0); Mean Corpuscular HGB CONC 32.9 g/dL (32.0-36.0); Mean Corpuscular Volume 97.4 fl (78.0-98.0); Mean Platelet Volume 8.1 fL (7.4-10.4); Platelet Count 141 10x3/uL (130-400); Red Blood Cell (RBC) Count 3.42 mill/uL (4.70-6.10); White Blood Cell (WBC) Count 8.1 10x3/uL (4.8-10.8)
[2022-05-08 07:43] LABS: INR-International Normal Ratio 0.9; PTT 35.2 sec (22.9-36.1); Prothrombin Time 12.9 sec (12.0-14.7)
[2022-05-08 07:50] LABS: ALT (SGPT) Less than 7 U/L (8-55); AST (SGOT) 9 U/L (5-34); Albumin 3.6 g/dL (3.4-4.8); Alkaline Phosphatase 180 U/L (40-110); Anion Gap 20 mmol/L (10-20); BUN (Urea Nitrogen) 43 mg/dL (8.4-25.7); Bilirubin, Total 0.4 mg/dL (0.2-1.2); Calc. Creatinine Clearance 0 mL/min (70-130); Carbon Dioxide 24 mmol/L (23-31); Chloride 95 mmol/L (98-107); Estimated GFR 7; Globulin 2.8 g/dL (2.4-3.5); Potassium 5.5 mmol/L (3.5-5.1); Protein, Total 6.4 g/dL (5.8-8.1); Sodium 133 mmol/L (136-145)
[2022-05-08] MEDS ORDERED: Morphine 2 MG/ML VIAL SLOW IVP PRN (07:53)
[2022-05-08] MEDS ORDERED: Ipratropium/Albuterol 3 ML NEB NEB PRN (07:53)
[2022-05-08] MEDS ORDERED: Ondansetron PF 4 MG/2 ML Vial IVP PRN (07:53)
[2022-05-08] MEDS ORDERED: hydrALAZINE 20 MG/ML VIAL SLOW IVP PRN (07:53)
[2022-05-08 07:58] LABS: Glucose 400 mg/dL (80-115)
[2022-05-08 09:08] LABS: SARS-CoV-2 NAA Rapid Test Not Detected (NotDetected)
[2022-05-08] MEDS ORDERED: Acetaminophen 500 MG TAB ONE ×2 (09:44→19:30)
[2022-05-08] MEDS ORDERED: Amlodipine 5 MG TAB ONE (09:44)
[2022-05-08] MEDS: Acetaminophen 500 MG TAB PO SCH ×3 (11:29→19:35)
[2022-05-08] MEDS: hydrALAZINE 25 MG TAB PO SCH ×2 (15:20→21:16)
[2022-05-09] MEDS: Acetaminophen 500 MG TAB PO SCH ×2 (01:37→14:51)
[2022-05-09 03:18] LABS: #Eosinphils 0.3 thou/uL (0.0-0.7); #Lymphocytes 2.1 thou/uL (1.20-3.40); #Monocytes 0.5 thou/uL (0.11-0.59); #Neutrophils 4.7 thou/uL (1.40-6.50); %Basophils 0.1 % (0.0-1.0); %Eosinophils 4.1 % (0.0-10.0); %Lymphocytes 27.4 % (21.0-51.0); %Monocytes 6.9 % (0.0-10.0); %Neutrophils 61.4 % (42.0-75.0); Hemoglobin 9.7 g/dL (14.0-18.0); Mean Corpuscular HGB CONC 33.4 g/dL (32.0-36.0); Mean Corpuscular Hemoglobin 32.6 pg (27.0-31.0); Mean Corpuscular Volume 97.4 fl (78.0-98.0); Mean Platelet Volume 9.5 fL (7.4-10.4); Platelet Count 135 10x3/uL (130-400); RBC Distribution Width 13.1 % (11.5-14.5); Red Blood Cell (RBC) Count 2.97 mill/uL (4.70-6.10); White Blood Cell (WBC) Count 7.7 10x3/uL (4.8-10.8)
[2022-05-09 03:31] LABS: INR-International Normal Ratio 0.9; Prothrombin Time 12.4 sec (12.0-14.7)
[2022-05-09 03:32] LABS: PTT 25.9 sec (22.9-36.1)
[2022-05-09 04:08] LABS: Anion Gap 13 mmol/L (10-20); BUN (Urea Nitrogen) 21 mg/dL (8.4-25.7); Calc. Creatinine Clearance 24 mL/min (70-130); Calcium 7.9 mg/dL (7.8-10.44); Carbon Dioxide 29 mmol/L (23-31); Chloride 99 mmol/L (98-107); Estimated GFR 12; Glucose 138 mg/dL (80-115); Potassium 4.5 mmol/L (3.5-5.1); Sodium 136 mmol/L (136-145)
[2022-05-09 04:14] LABS: Phosphorus 4.6 mg/dL (2.3-4.7)
[2022-05-09] MEDS ORDERED: Dextrose 5% in Water 1,000 ML IV PRN (07:40)
[2022-05-09] MEDS ORDERED: Dextrose 50% Abboject 50 ML SYRINGE SLOW IVP PRN (07:40)
[2022-05-09] MEDS: hydrALAZINE 25 MG TAB PO SCH ×3 (10:04→20:36)
[2022-05-09] MEDS: Acetaminophen/Codeine 30-300mg Tablet PO PRN ×2 (10:05→20:37)
[2022-05-09] MEDS: Amlodipine 10 MG TAB PO SCH (10:05)
[2022-05-09] MEDS: Acetaminophen 325 MG TAB PO SCH ×4 (10:12→21:57)
[2022-05-09] MEDS: Morphine 2 MG/ML VIAL SLOW IVP PRN ×3 (12:19→21:55)
[2022-05-09] MEDS: prednisoLONE 1% Ophth Susp 5 ml Bottle L EYE SCH ×3 (14:45→20:38)
[2022-05-09] MEDS: Insulin Regular 300 UNITS/3 ML VIAL SC PRN ×2 (18:38→20:43)
[2022-05-09] MEDS: Atorvastatin Calcium 20 MG TAB PO SCH (20:36)
[2022-05-09] MEDS: levETIRAcetam 500 MG TAB PO SCH (20:36)
[2022-05-10] MEDS: Acetaminophen 325 MG TAB PO SCH ×4 (04:32→21:13)
[2022-05-10] MEDS: Morphine 2 MG/ML VIAL SLOW IVP PRN ×2 (05:45→21:02)
[2022-05-10 07:49] LABS: #Eosinphils 0.3 thou/uL (0.0-0.7); #Monocytes 0.6 thou/uL (0.11-0.59); #Neutrophils 3.8 thou/uL (1.40-6.50); %Basophils 0.5 % (0.0-1.0); %Eosinophils 4.4 % (0.0-10.0); %Lymphocytes 29.7 % (21.0-51.0); %Monocytes 8.6 % (0.0-10.0); %Neutrophils 56.8 % (42.0-75.0); Mean Corpuscular HGB CONC 32.8 g/dL (32.0-36.0); Mean Corpuscular Hemoglobin 31.9 pg (27.0-31.0); Mean Corpuscular Volume 97.3 fl (78.0-98.0); Mean Platelet Volume 8.3 fL (7.4-10.4); Platelet Count 145 10x3/uL (130-400); RBC Distribution Width 12.9 % (11.5-14.5); Red Blood Cell (RBC) Count 3.13 mill/uL (4.70-6.10); White Blood Cell (WBC) Count 6.7 10x3/uL (4.8-10.8)
[2022-05-10 08:06] LABS: Anion Gap 15 mmol/L (10-20); BUN (Urea Nitrogen) 37 mg/dL (8.4-25.7); Calc. Creatinine Clearance 18 mL/min (70-130); Carbon Dioxide 28 mmol/L (23-31); Chloride 97 mmol/L (98-107); Estimated GFR 8; Glucose 131 mg/dL (80-115); Potassium 5.3 mmol/L (3.5-5.1); Sodium 135 mmol/L (136-145)
[2022-05-10] MEDS: hydrALAZINE 25 MG TAB PO SCH ×3 (09:53→21:02)
[2022-05-10] MEDS: levETIRAcetam 500 MG TAB PO SCH ×2 (09:54→21:01)
[2022-05-10] MEDS: Cholecalciferol 1,000 UNITS (25 MCG) TAB PO SCH (09:54)
[2022-05-10] MEDS: prednisoLONE 1% Ophth Susp 5 ml Bottle L EYE SCH ×4 (09:55→21:14)
[2022-05-10] MEDS: Amlodipine 10 MG TAB PO SCH (09:55)
[2022-05-10] MEDS: Lidocaine 5% Patch TD SCH (13:50)
[2022-05-10] MEDS: Atorvastatin Calcium 20 MG TAB PO SCH (21:01)
[2022-05-11] MEDS: Transdermal Patch Removal TOP SCH (01:51)
[2022-05-11] MEDS: Acetaminophen 325 MG TAB PO SCH ×4 (04:34→20:56)
[2022-05-11] MEDS: levETIRAcetam 500 MG TAB PO SCH ×2 (09:34→20:54)
[2022-05-11] MEDS: Cholecalciferol 1,000 UNITS (25 MCG) TAB PO SCH (09:37)
[2022-05-11] MEDS: prednisoLONE 1% Ophth Susp 5 ml Bottle L EYE SCH ×4 (09:38→20:55)
[2022-05-11 10:17] LABS: #Eosinphils 0.3 thou/uL (0.0-0.7); #Lymphocytes 1.7 thou/uL (1.20-3.40); #Monocytes 0.6 thou/uL (0.11-0.59); #Neutrophils 4.4 thou/uL (1.40-6.50); %Basophils 0.2 % (0.0-1.0); %Eosinophils 4.2 % (0.0-10.0); %Lymphocytes 24.8 % (21.0-51.0); %Monocytes 8.2 % (0.0-10.0); %Neutrophils 62.6 % (42.0-75.0); Hemoglobin 11.2 g/dL (14.0-18.0); Mean Corpuscular HGB CONC 31.9 g/dL (32.0-36.0); Mean Platelet Volume 8.3 fL (7.4-10.4); Platelet Count 168 10x3/uL (130-400); RBC Distribution Width 12.9 % (11.5-14.5); Red Blood Cell (RBC) Count 3.49 mill/uL (4.70-6.10)
[2022-05-11 10:21] LABS: ALT (SGPT) 20 U/L (8-55); AST (SGOT) 26 U/L (5-34); Albumin 3.4 g/dL (3.4-4.8); Alkaline Phosphatase 172 U/L (40-110); Anion Gap 18 mmol/L (10-20); BUN (Urea Nitrogen) 27 mg/dL (8.4-25.7); Bilirubin, Total 0.6 mg/dL (0.2-1.2); Calc. Creatinine Clearance 21 mL/min (70-130); Calcium 8.2 mg/dL (7.8-10.44); Carbon Dioxide 23 mmol/L (23-31); Chloride 98 mmol/L (98-107); Estimated GFR 10; Glucose 173 mg/dL (80-115); Magnesium 2.2 mg/dL (1.6-2.6); Phosphorus 6.3 mg/dL (2.3-4.7); Potassium 5.1 mmol/L (3.5-5.1); Protein, Total 6.4 g/dL (5.8-8.1); Sodium 134 mmol/L (136-145)
[2022-05-11] MEDS: Amlodipine 10 MG TAB PO SCH (11:29)
[2022-05-11] MEDS: hydrALAZINE 25 MG TAB PO SCH ×3 (11:30→22:19)
[2022-05-11] MEDS: Lidocaine 5% Patch TD SCH (14:54)
[2022-05-11] MEDS: Atorvastatin Calcium 20 MG TAB PO SCH (20:54)
[2022-05-11] MEDS: Insulin Regular 300 UNITS/3 ML VIAL SC PRN (20:55)
[2022-05-12] MEDS: Transdermal Patch Removal TOP SCH (02:04)
[2022-05-12] MEDS: Acetaminophen 325 MG TAB PO SCH ×4 (05:09→23:24)
[2022-05-12] MEDS: Insulin Regular 300 UNITS/3 ML VIAL SC PRN ×3 (05:56→17:43)
[2022-05-12] MEDS: prednisoLONE 1% Ophth Susp 5 ml Bottle L EYE SCH ×4 (08:45→23:25)
[2022-05-12] MEDS: hydrALAZINE 25 MG TAB PO SCH ×3 (08:48→23:23)
[2022-05-12] MEDS: levETIRAcetam 500 MG TAB PO SCH ×2 (08:49→23:23)
[2022-05-12] MEDS: Cholecalciferol 1,000 UNITS (25 MCG) TAB PO SCH (08:49)
[2022-05-12] MEDS: Amlodipine 10 MG TAB PO SCH (08:50)
[2022-05-12] MEDS: Insulin Glargine 30 UNITS/0.3 ML VIAL SC SCH (10:20)
[2022-05-12] MEDS: Sevelamer Carbonate 800 MG TAB PO SCH ×2 (13:42→18:22)
[2022-05-12] MEDS: Lidocaine 5% Patch TD SCH (13:42)
[2022-05-12] MEDS: Atorvastatin Calcium 20 MG TAB PO SCH (23:24)
[2022-05-13] MEDS: Transdermal Patch Removal TOP SCH (02:05)
[2022-05-13] MEDS: Acetaminophen 325 MG TAB PO SCH ×4 (05:47→21:54)
[2022-05-13] MEDS: Insulin Regular 300 UNITS/3 ML VIAL SC PRN ×4 (06:36→20:05)
[2022-05-13] MEDS: Sevelamer Carbonate 800 MG TAB PO SCH ×3 (10:08→17:46)
[2022-05-13] MEDS: levETIRAcetam 500 MG TAB PO SCH ×2 (10:09→20:02)
[2022-05-13] MEDS: prednisoLONE 1% Ophth Susp 5 ml Bottle L EYE SCH ×4 (10:10→20:02)
[2022-05-13] MEDS: Cholecalciferol 1,000 UNITS (25 MCG) TAB PO SCH (10:16)
[2022-05-13] MEDS: hydrALAZINE 25 MG TAB PO SCH ×3 (10:16→20:00)
[2022-05-13] MEDS: Amlodipine 10 MG TAB PO SCH (10:17)
[2022-05-13] MEDS: Insulin Glargine 30 UNITS/0.3 ML VIAL SC SCH ×2 (10:18→20:02)
[2022-05-13] MEDS: Lidocaine 5% Patch TD SCH (14:27)
[2022-05-13 16:34] VITALS: BMI 37.4
[2022-05-13] MEDS: Atorvastatin Calcium 20 MG TAB PO SCH (20:02)
[2022-05-14] MEDS: Transdermal Patch Removal TOP SCH (00:52)
[2022-05-14] MEDS: Acetaminophen 325 MG TAB PO SCH ×4 (04:00→20:20)
[2022-05-14] MEDS: Insulin Regular 300 UNITS/3 ML VIAL SC PRN ×4 (05:50→20:21)
[2022-05-14] MEDS: hydrALAZINE 25 MG TAB PO SCH ×3 (09:21→20:24)
[2022-05-14] MEDS: Cholecalciferol 1,000 UNITS (25 MCG) TAB PO SCH (09:22)
[2022-05-14] MEDS: Amlodipine 10 MG TAB PO SCH (09:22)
[2022-05-14] MEDS: levETIRAcetam 500 MG TAB PO SCH ×2 (09:22→20:20)
[2022-05-14] MEDS: Sevelamer Carbonate 800 MG TAB PO SCH ×3 (09:22→16:16)
[2022-05-14] MEDS: prednisoLONE 1% Ophth Susp 5 ml Bottle L EYE SCH ×4 (09:23→20:21)
[2022-05-14] MEDS: Lidocaine 5% Patch TD SCH (12:30)
[2022-05-14] MEDS: Insulin Glargine 30 UNITS/0.3 ML VIAL SC SCH (20:20)
[2022-05-14] MEDS: Atorvastatin Calcium 20 MG TAB PO SCH (20:20)
[2022-05-15] MEDS: Transdermal Patch Removal TOP SCH (01:09)
[2022-05-15] MEDS: Acetaminophen 325 MG TAB PO SCH ×4 (04:49→21:36)
[2022-05-15] MEDS: Insulin Regular 300 UNITS/3 ML VIAL SC PRN (06:17)
[2022-05-15] MEDS ORDERED: Insulin Regular 300 UNITS/3 ML VIAL SC PRN (07:33)
[2022-05-15] MEDS: Amlodipine 10 MG TAB PO SCH (09:56)
[2022-05-15] MEDS: Sevelamer Carbonate 800 MG TAB PO SCH ×3 (09:56→17:02)
[2022-05-15] MEDS: hydrALAZINE 25 MG TAB PO SCH ×3 (09:57→21:36)
[2022-05-15] MEDS: prednisoLONE 1% Ophth Susp 5 ml Bottle L EYE SCH ×4 (10:01→21:36)
[2022-05-15] MEDS: Cholecalciferol 1,000 UNITS (25 MCG) TAB PO SCH (10:03)
[2022-05-15] MEDS: levETIRAcetam 500 MG TAB PO SCH ×2 (10:03→21:33)
[2022-05-15] MEDS: Lidocaine 5% Patch TD SCH (17:04)
[2022-05-15] MEDS: Atorvastatin Calcium 20 MG TAB PO SCH (21:37)
[2022-05-15] MEDS: Insulin Glargine 30 UNITS/0.3 ML VIAL SC SCH (21:42)
[2022-05-16] MEDS: Transdermal Patch Removal TOP SCH (01:22)
[2022-05-16] MEDS: Acetaminophen 325 MG TAB PO SCH ×4 (05:06→23:53)
[2022-05-16 06:06] LABS: #Eosinphils 0.3 thou/uL (0.0-0.7); #Monocytes 0.6 thou/uL (0.11-0.59); %Basophils 0.2 % (0.0-1.0); %Eosinophils 4.1 % (0.0-10.0); %Lymphocytes 28.5 % (21.0-51.0); %Monocytes 9.2 % (0.0-10.0); %Neutrophils 57.9 % (42.0-75.0); Hemoglobin 9.9 g/dL (14.0-18.0); Mean Corpuscular Hemoglobin 32.2 pg (27.0-31.0); Mean Corpuscular Volume 97.7 fl (78.0-98.0); Mean Platelet Volume 7.9 fL (7.4-10.4); Platelet Count 160 10x3/uL (130-400); RBC Distribution Width 12.8 % (11.5-14.5); Red Blood Cell (RBC) Count 3.07 mill/uL (4.70-6.10); White Blood Cell (WBC) Count 6.8 10x3/uL (4.8-10.8)
[2022-05-16 06:27] LABS: Anion Gap 14 mmol/L (10-20); BUN (Urea Nitrogen) 30 mg/dL (8.4-25.7); Calc. Creatinine Clearance 21 mL/min (70-130); Calcium 8.7 mg/dL (7.8-10.44); Carbon Dioxide 28 mmol/L (23-31); Chloride 98 mmol/L (98-107); Estimated GFR 11; Glucose 144 mg/dL (80-115); Potassium 4.1 mmol/L (3.5-5.1); Sodium 136 mmol/L (136-145)
[2022-05-16] MEDS: Sevelamer Carbonate 800 MG TAB PO SCH ×3 (08:44→16:28)
[2022-05-16] MEDS: hydrALAZINE 25 MG TAB PO SCH ×3 (08:45→22:20)
[2022-05-16] MEDS: levETIRAcetam 500 MG TAB PO SCH ×2 (08:45→22:18)
[2022-05-16] MEDS: Cholecalciferol 1,000 UNITS (25 MCG) TAB PO SCH (08:46)
[2022-05-16] MEDS: Amlodipine 10 MG TAB PO SCH (08:46)
[2022-05-16] MEDS: prednisoLONE 1% Ophth Susp 5 ml Bottle L EYE SCH ×4 (08:49→22:21)
[2022-05-16] MEDS ORDERED: Epoetin (ESRD) 20,000 UNITS/ML SC SCH (09:30)
[2022-05-16] MEDS: Polyethylene Glycol 3350 17 GM Packet PO SCH (10:03)
[2022-05-16] MEDS: Senokot S 8.6-50 MG TAB PO SCH ×2 (10:03→22:22)
[2022-05-16] MEDS ORDERED: EPOETIN ALFA-EPBX (ESRD) 10,000 UNIT/ML VIAL SC SCH (12:00)
[2022-05-16] MEDS: Insulin Regular 300 UNITS/3 ML VIAL SC PRN ×2 (12:16→16:32)
[2022-05-16] MEDS: Lidocaine 5% Patch TD SCH (12:17)
[2022-05-16] MEDS: Insulin Glargine 30 UNITS/0.3 ML VIAL SC SCH (22:19)
[2022-05-16] MEDS: Atorvastatin Calcium 20 MG TAB PO SCH (22:21)
[2022-05-17] MEDS: Transdermal Patch Removal TOP SCH (04:05)
[2022-05-17] MEDS: Acetaminophen 325 MG TAB PO SCH ×3 (04:48→16:05)
[2022-05-17 08:10] LABS: Anion Gap 15 mmol/L (10-20); BUN (Urea Nitrogen) 38 mg/dL (8.4-25.7); Calc. Creatinine Clearance 16 mL/min (70-130); Calcium 8.3 mg/dL (7.8-10.44); Carbon Dioxide 26 mmol/L (23-31); Chloride 98 mmol/L (98-107); Estimated GFR 8; Glucose 111 mg/dL (80-115); Magnesium 2.6 mg/dL (1.6-2.6); Phosphorus 5.7 mg/dL (2.3-4.7); Potassium 4.3 mmol/L (3.5-5.1); Sodium 135 mmol/L (136-145)
[2022-05-17] MEDS: hydrALAZINE 25 MG TAB PO SCH ×2 (08:33→16:06)
[2022-05-17] MEDS: Amlodipine 10 MG TAB PO SCH (08:34)
[2022-05-17] MEDS: levETIRAcetam 500 MG TAB PO SCH (08:34)
[2022-05-17] MEDS: Cholecalciferol 1,000 UNITS (25 MCG) TAB PO SCH (08:34)
[2022-05-17] MEDS: Sevelamer Carbonate 800 MG TAB PO SCH ×3 (08:34→16:05)
[2022-05-17] MEDS: prednisoLONE 1% Ophth Susp 5 ml Bottle L EYE SCH ×3 (08:35→16:06)
[2022-05-17] MEDS: Polyethylene Glycol 3350 17 GM Packet PO SCH (08:35)
[2022-05-17] MEDS: Senokot S 8.6-50 MG TAB PO SCH (08:35)
[2022-05-17] MEDS: Lidocaine 5% Patch TD SCH (12:08)
[2022-05-17 16:05] VITALS: BP 126/64; TEMP 98.1
== END 2022-05-17 17:34 | disposition home health service (06) | DRG 85 ==
LOC: ERS 06:05 → ERHOLD 07:57 → IMCU/EMU 19:56 → SJJU 05-13 20:39
PROVIDERS: ADMIT Surgery; ATTEND Surgery
PROC: 6A550Z2 Pheresis of Platelets, Single (ICD-10-PCS; 2022-05-08)
PROC: 5A1D70Z Performance of Urinary Filtration, Intermittent, Less than 6 Hours Per Day (ICD-10-PCS; principal; 2022-05-10)
DX: S06.341A Traumatic hemorrhage of right cerebrum with loss of consciousness of 30 minutes or less, initial encounter (principal); N18.6 End stage renal disease; I69.354 Hemiplegia and hemiparesis following cerebral infarction affecting left non-dominant side; I12.0 Hypertensive chronic kidney disease with stage 5 chronic kidney disease or end stage renal disease; S06.6X1A Traumatic subarachnoid hemorrhage with loss of consciousness of 30 minutes or less, initial encounter; Z20.822 Contact with and (suspected) exposure to COVID-19; R40.2413 Glasgow coma scale score 13-15, at hospital admission; D63.1 Anemia in chronic kidney disease; V00.811A Fall from moving wheelchair (powered), initial encounter; E11.22 Type 2 diabetes mellitus with diabetic chronic kidney disease; E83.39 Other disorders of phosphorus metabolism; Y92.009 Unspecified place in unspecified non-institutional (private) residence as the place of occurrence of the external cause; Z99.2 Dependence on renal dialysis; Z89.511 Acquired absence of right leg below knee; Z89.022 Acquired absence of left finger(s); Z90.89 Acquired absence of other organs; Z79.02 Long term (current) use of antithrombotics/antiplatelets; Z79.4 Long term (current) use of insulin; Z79.899 Other long term (current) drug therapy; Z88.0 Allergy status to penicillin; Z88.1 Allergy status to other antibiotic agents; Z90.49 Acquired absence of other specified parts of digestive tract; Z89.422 Acquired absence of other left toe(s); Z87.891 Personal history of nicotine dependence
CPT/HCPCS: 36415; 36416; 36430; 70450; 72125; 80048; 80053; 82140; 83735; 84100; 85025; 85610; 85730; 86850; 86900; 86901; 87811; 90935; 93005; 93970; 96365; 96366; G0257; J1815; J2272; P9035; Q5105; U0002

== ENCOUNTER 2022-05-19 06:02 | Emergency (ER) | payer MEDICARE ==
[2022-05-19 06:58] LABS: #Eosinphils 0.3 thou/uL (0.0-0.7); #Lymphocytes 1.5 thou/uL (1.20-3.40); #Monocytes 0.5 thou/uL (0.11-0.59); #Neutrophils 3.4 thou/uL (1.40-6.50); %Basophils 0.4 % (0.0-1.0); %Eosinophils 5.3 % (0.0-10.0); %Lymphocytes 25.6 % (21.0-51.0); %Neutrophils 59.7 % (42.0-75.0); Hemoglobin 9.7 g/dL (14.0-18.0); Mean Corpuscular HGB CONC 33.4 g/dL (32.0-36.0); Mean Corpuscular Hemoglobin 32.4 pg (27.0-31.0); Mean Platelet Volume 7.9 fL (7.4-10.4); Platelet Count 170 10x3/uL (130-400); RBC Distribution Width 12.8 % (11.5-14.5); White Blood Cell (WBC) Count 5.8 10x3/uL (4.8-10.8)
[2022-05-19 07:17] LABS: ALT (SGPT) Less than 7 U/L (8-55); AST (SGOT) 14 U/L (5-34); Albumin 3.3 g/dL (3.4-4.8); Alkaline Phosphatase 132 U/L (40-110); Anion Gap 14 mmol/L (10-20); BUN (Urea Nitrogen) 41 mg/dL (8.4-25.7); Bilirubin, Total 0.4 mg/dL (0.2-1.2); Calc. Creatinine Clearance 0 mL/min (70-130); Calcium 8.8 mg/dL (7.8-10.44); Carbon Dioxide 24 mmol/L (23-31); Chloride 99 mmol/L (98-107); Estimated GFR 9; Globulin 2.7 g/dL (2.4-3.5); Glucose 140 mg/dL (80-115); Potassium 4.4 mmol/L (3.5-5.1); Sodium 133 mmol/L (136-145)
== END 2022-05-19 09:07 | disposition home or self-care (01) ==
LOC: ERS 06:02
DX: M25.562 Pain in left knee (principal); E11.9 Type 2 diabetes mellitus without complications; I10 Essential (primary) hypertension; Z86.73 Personal history of transient ischemic attack (TIA), and cerebral infarction without residual deficits; Z79.899 Other long term (current) drug therapy; Z79.82 Long term (current) use of aspirin; Z79.4 Long term (current) use of insulin
CPT/HCPCS: 36415; 72170; 80053; 85025

== ENCOUNTER 2022-06-14 04:36 | Emergency (ER) | payer MEDICARE ==
[2022-06-14] MEDS ORDERED: traMADol HCl 50 MG TAB ONE (05:04)
[2022-06-14] MEDS ORDERED: Boostrix 0.5 ML (Tdap) VIAL (>/=7 yrs of age) ONE (05:05)
== END 2022-06-14 05:40 | disposition home or self-care (01) ==
LOC: ERS 04:36
DX: M19.042 Primary osteoarthritis, left hand (principal); S61.012A Laceration without foreign body of left thumb without damage to nail, initial encounter; E11.9 Type 2 diabetes mellitus without complications; I10 Essential (primary) hypertension; Z79.4 Long term (current) use of insulin; Z79.899 Other long term (current) drug therapy; Z23 Encounter for immunization; W26.0XXA Contact with knife, initial encounter
CPT/HCPCS: 90471; 90715

== ENCOUNTER 2023-01-28 12:15 | Inpatient (IN) | payer OTHER ==
[2023-01-28] MEDS ORDERED: Heparin 10,000 UNITS/ 10 ML VIAL ONE (12:49)
[2023-01-28 12:57] LABS: #Eosinphils 0.3 thou/uL (0.0-0.7); #Monocytes 0.8 thou/uL (0.11-0.59); #Neutrophils 4.4 thou/uL (1.40-6.50); %Basophils 0.5 % (0.0-1.0); %Eosinophils 3.7 % (0.0-10.0); %Lymphocytes 27.1 % (21.0-51.0); %Monocytes 10.1 % (0.0-10.0); %Neutrophils 58.1 % (42.0-75.0); Hemoglobin 9.6 g/dL (14.0-18.0); Mean Corpuscular HGB CONC 33.1 g/dL (32.0-36.0); Mean Corpuscular Hemoglobin 32.2 pg (27.0-31.0); Mean Corpuscular Volume 97.3 fl (78.0-98.0); Mean Platelet Volume 10.4 fL (7.4-10.4); Platelet Count 151 10x3/uL (130-400); RBC Distribution Width 13.3 % (11.5-14.5); Red Blood Cell (RBC) Count 2.98 mill/uL (4.70-6.10); White Blood Cell (WBC) Count 7.6 10x3/uL (4.8-10.8)
[2023-01-28 13:15] LABS: ALT (SGPT) 13 U/L (8-55); AST (SGOT) 14 U/L (5-34); Albumin 3.8 g/dL (3.4-4.8); Alkaline Phosphatase 186 U/L (40-110); Anion Gap 25 mmol/L (10-20); BUN (Urea Nitrogen) 70 mg/dL (8.4-25.7); Bilirubin, Total 0.3 mg/dL (0.2-1.2); Calc. Creatinine Clearance 0 mL/min (70-130); Calcium 8.3 mg/dL (7.8-10.44); Carbon Dioxide 21 mmol/L (23-31); Chloride 98 mmol/L (98-107); Estimated GFR 6; Globulin 2.8 g/dL (2.4-3.5); Glucose 177 mg/dL (80-115); Lipase 26 U/L (8-78); Potassium 5.6 mmol/L (3.5-5.1); Protein, Total 6.6 g/dL (5.8-8.1); Sodium 138 mmol/L (136-145)
[2023-01-28 13:18] LABS: Troponin I 0.026 ng/mL (< 0.028)
[2023-01-28] MEDS ORDERED: Vancomycin 1 GM/200 ML (FROZEN) BAG ONE (13:55)
[2023-01-28] MEDS ORDERED: Clindamycin/D5W 900 MG in Premix Bag 1 BAG IVPB SCH (14:00)
[2023-01-28 14:05] LABS: Bilirubin Negative (Negative); Blood, Urine 3+ (Negative); CAUTI Indications for Culture Alt mental st,lethar; Clarity Turbid (Clear); Glucose, Urine (Dipstick) 300 mg/dL (Negative); Ketone, Urine Negative (Negative); Leukocyte 500 Leu/uL (Negative); Nitrite Negative (Negative); Protein, Urine (Dipstick) 100 mg/dL (Neg-Trace); Specific Gravity, Urine 1.014 (1.002-1.036); Squamous Epithelial 0-3 HPF (0-3); Urobilinogen Normal mg/dL (Less than 2); WBC/HPF Greater than 50 HPF (0-3); pH, Urine 6.5 (5.0-9.0)
[2023-01-28 14:11] LABS: Bacteria/HPF 1+ HPF (None Seen)
[2023-01-28 14:14] LABS: Urine Culture Reflex Yes Yes
[2023-01-28 14:23] LABS: Actual Bicarbonate (HCO3v) 22.9 mEq/L (22-28); Base Excess -1.2 mEq/L (-2.0 to +3.0); Calcium, Ionized (venous) 0.92 mmol/L (1.16-1.32); Chloride (VBG) 99 mmol/L (98-106); Hematocrit-VBG 31 % (42.0-52.0); Hemoglobin (Hb) 10.5 g/dL (13.1-17.2); pH (venous) 7.423 (7.32-7.43)
[2023-01-28 14:24] LABS: Potassium (VBG) 6.14 mmol/L (3.70-5.30)
[2023-01-28] MEDS ORDERED: Acetaminophen 325 MG TAB PO PRN (15:07)
[2023-01-28] MEDS ORDERED: Ondansetron PF 4 MG/2 ML Vial IVP PRN (15:07)
[2023-01-28] MEDS ORDERED: Ondansetron ODT 4 MG TAB PO PRN (15:07)
[2023-01-28] MEDS ORDERED: Sodium Bicarb 50 MEQ/50 ML VIAL ONE (15:12)
[2023-01-28] MEDS ORDERED: Calcium Chloride 1 GM/10 ML Abboject SYRINGE ONE (15:12)
[2023-01-28] MEDS ORDERED: Insulin Regular 300 UNITS/3 ML VIAL ONE (15:12)
[2023-01-28] MEDS ORDERED: Dextrose 50% Abboject 50 ML SYRINGE ONE (15:12)
[2023-01-28] MEDS ORDERED: Glucagon 1 MG/ML KIT IM PRN (15:18)
[2023-01-28] MEDS ORDERED: HumaLOG 300 UNITS/3 ML VIAL SC PRN ×2 (15:18)
[2023-01-28] MEDS ORDERED: Dextrose 5% in Water 1,000 ML IV PRN (15:18)
[2023-01-28] MEDS ORDERED: Dextrose 50% Abboject 50 ML SYRINGE SLOW IVP PRN (15:18)
[2023-01-28] MEDS ORDERED: LevoFLOXacin 750 mg/D5W 150 ml Premix Bag ONE (15:29)
[2023-01-28] MEDS ORDERED: LOKELMA 10 GM PACKET PO SCH (15:45)
[2023-01-28] MEDS ORDERED: Epoetin (ESRD) 10,000 UNITS/ML VIAL SC SCH (17:00)
[2023-01-28 17:18] VITALS: BMI 39.9
[2023-01-28] MEDS ORDERED: FLU VACC QS2023-24(6MOS UP)/PF 60 MCG/0.5 ML SYRINGE IM ONE (17:30)
[2023-01-28] MEDS ORDERED: Vancomycin 1 GM in Premix Bag 1 BAG IVPB SCH (18:00)
[2023-01-28] MEDS ORDERED: Clindamycin/D5W 600 MG in Premix Bag 1 BAG IVPB SCH (18:00)
[2023-01-28] MEDS ORDERED: Vancomycin Dialysis Sliding Scale (Wt > 99) FS SCH (18:15)
[2023-01-28] MEDS: HYDROcodone/Acetaminophen 5/325 mg Tablet PO PRN (19:17)
[2023-01-29] MEDS: HYDROcodone/Acetaminophen 5/325 mg Tablet PO PRN ×3 (00:24→19:34)
[2023-01-29 04:18] LABS: #Eosinphils 0.3 thou/uL (0.0-0.7); #Monocytes 0.9 thou/uL (0.11-0.59); #Neutrophils 5.1 thou/uL (1.40-6.50); %Basophils 0.5 % (0.0-1.0); %Eosinophils 3.2 % (0.0-10.0); %Lymphocytes 20.6 % (21.0-51.0); %Monocytes 10.8 % (0.0-10.0); Hematocrit 28.7 % (42.0-52.0); Hemoglobin 9.3 g/dL (14.0-18.0); Mean Corpuscular HGB CONC 32.4 g/dL (32.0-36.0); Mean Corpuscular Volume 98.6 fl (78.0-98.0); Mean Platelet Volume 10.3 fL (7.4-10.4); Platelet Count 149 10x3/uL (130-400); RBC Distribution Width 13.4 % (11.5-14.5); Red Blood Cell (RBC) Count 2.91 mill/uL (4.70-6.10)
[2023-01-29 04:43] LABS: Vancomycin, Random 9.6 ug/mL (See Comment)
[2023-01-29 04:44] LABS: Anion Gap 19 mmol/L (10-20); BUN (Urea Nitrogen) 44 mg/dL (8.4-25.7); Calc. Creatinine Clearance 20 mL/min (70-130); Calcium 8.7 mg/dL (7.8-10.44); Carbon Dioxide 27 mmol/L (23-31); Chloride 98 mmol/L (98-107); Estimated GFR 9; Glucose 124 mg/dL (80-115); Potassium 4.8 mmol/L (3.5-5.1); Sodium 139 mmol/L (136-145)
[2023-01-29 04:48] LABS: Phosphorus 5.8 mg/dL (2.3-4.7)
[2023-01-29] MEDS: Sevelamer Carbonate 800 MG TAB PO SCH ×4 (09:59→16:28)
[2023-01-29] MEDS ORDERED: LevoFLOXacin 500 mg/D5W 500 MG in Premix Bag 1 BAG IVPB SCH (15:00)
[2023-01-29] MEDS ORDERED: Heparin 10,000 UNITS/ 10 ML VIAL ONE (16:03)
[2023-01-29] MEDS ORDERED: Vancomycin 1.5 GRAM/300 ML BAG 1.5 GM in Premix Bag 1 BAG IVPB SCH (17:00)
[2023-01-30] MEDS: HYDROcodone/Acetaminophen 5/325 mg Tablet PO PRN ×2 (01:52→19:32)
[2023-01-30 04:07] LABS: #Eosinphils 0.2 thou/uL (0.0-0.7); #Monocytes 0.9 thou/uL (0.11-0.59); #Neutrophils 4.3 thou/uL (1.40-6.50); %Basophils 0.5 % (0.0-1.0); %Eosinophils 3.2 % (0.0-10.0); %Lymphocytes 27.2 % (21.0-51.0); %Monocytes 11.7 % (0.0-10.0); %Neutrophils 56.9 % (42.0-75.0); Hematocrit 29.5 % (42.0-52.0); Hemoglobin 9.6 g/dL (14.0-18.0); Mean Corpuscular HGB CONC 32.5 g/dL (32.0-36.0); Mean Corpuscular Hemoglobin 31.8 pg (27.0-31.0); Mean Corpuscular Volume 97.7 fl (78.0-98.0); Mean Platelet Volume 10.4 fL (7.4-10.4); Platelet Count 154 10x3/uL (130-400); RBC Distribution Width 13.5 % (11.5-14.5); Red Blood Cell (RBC) Count 3.02 mill/uL (4.70-6.10); White Blood Cell (WBC) Count 7.5 10x3/uL (4.8-10.8)
[2023-01-30] MEDS ORDERED: Lidocaine 1% (PF) 30 ML VIAL ONE (07:33)
[2023-01-30] MEDS: Calcitriol 0.25 MCG CAP PO SCH ×2 (07:50→09:31)
[2023-01-30] MEDS: Sevelamer Carbonate 800 MG TAB PO SCH ×3 (07:50→18:22)
[2023-01-30 08:26] LABS: Anion Gap 14 mmol/L (10-20); BUN (Urea Nitrogen) 31 mg/dL (8.4-25.7); Calc. Creatinine Clearance 22 mL/min (70-130); Calcium 8.8 mg/dL (7.8-10.44); Carbon Dioxide 29 mmol/L (23-31); Chloride 97 mmol/L (98-107); Estimated GFR 11; Glucose 165 mg/dL (80-115); Magnesium 2.1 mg/dL (1.6-2.6); Potassium 4.2 mmol/L (3.5-5.1); Sodium 136 mmol/L (136-145)
[2023-01-30] MEDS ORDERED: Heparin 10,000 UNITS/ 10 ML VIAL ONE (08:45)
[2023-01-30] MEDS ORDERED: Iopamidol 370 76% 100 ML VIAL ONE (15:47)
[2023-01-30] MEDS ORDERED: Atorvastatin Calcium 40 MG TAB PO SCH (21:00)
[2023-01-31] MEDS: HYDROcodone/Acetaminophen 5/325 mg Tablet PO PRN (00:08)
[2023-01-31 05:17] LABS: Anion Gap 16 mmol/L (10-20); BUN (Urea Nitrogen) 31 mg/dL (8.4-25.7); Calc. Creatinine Clearance 21 mL/min (70-130); Calcium 9.1 mg/dL (7.8-10.44); Carbon Dioxide 28 mmol/L (23-31); Cardiac Risk 5.4 (Less than 4.5); Chloride 95 mmol/L (98-107); Cholesterol 150 mg/dl (< 200 Desired); Estimated GFR 10; Glucose 139 mg/dL (80-115); HDL Cholesterol 28 mg/dL (>60 Neg Risk); LDL Cholesterol, Calculated 95 mg/dL; Potassium 4.1 mmol/L (3.5-5.1); Sodium 135 mmol/L (136-145); Triglycerides 137 mg/dL (Less than 150)
[2023-01-31 05:22] LABS: Hemoglobin A1c 5.7 % (4.0-6.0)
[2023-01-31 07:55] LABS: Vancomycin, Random 16.7 ug/mL (See Comment)
[2023-01-31] MEDS ORDERED: Heparin 10,000 UNITS/ 10 ML VIAL ONE (08:33)
[2023-01-31] MEDS ORDERED: Aspirin 81 mg Enteric Coated Tablet PO SCH (09:00)
[2023-01-31 12:25] VITALS: BP 157/68; TEMP 97.5
[2023-01-31] MEDS: Sevelamer Carbonate 800 MG TAB PO SCH ×2 (13:00→13:02)
[2023-01-31] MEDS: Calcitriol 0.25 MCG CAP PO SCH (13:01)
[2023-01-31] MEDS ORDERED: LevoFLOXacin 500 MG TAB PO SCH ×2 (15:15→15:30)
[2023-01-31] MEDS ORDERED: LevoFLOXacin 500 mg/D5W 500 MG in Premix Bag 1 BAG IVPB SCH (17:00)
== END 2023-01-31 17:00 | disposition home or self-care (01) | DRG 602 ==
LOC: ERS 12:15 → 2NO 15:04
PROVIDERS: ADMIT Family Medicine; ATTEND Family Medicine
PROC: B4101ZZ Fluoroscopy of Abdominal Aorta using Low Osmolar Contrast (ICD-10-PCS; principal; 2023-01-30)
PROC: B41G1ZZ Fluoroscopy of Left Lower Extremity Arteries using Low Osmolar Contrast (ICD-10-PCS; 2023-01-30)
PROC: 5A1D70Z Performance of Urinary Filtration, Intermittent, Less than 6 Hours Per Day (ICD-10-PCS; 2023-01-31)
DX: L03.116 Cellulitis of left lower limb (principal); N18.6 End stage renal disease; I12.0 Hypertensive chronic kidney disease with stage 5 chronic kidney disease or end stage renal disease; N39.0 Urinary tract infection, site not specified; N25.81 Secondary hyperparathyroidism of renal origin; E11.51 Type 2 diabetes mellitus with diabetic peripheral angiopathy without gangrene; E11.40 Type 2 diabetes mellitus with diabetic neuropathy, unspecified; F32.A Depression, unspecified; E87.5 Hyperkalemia; G40.909 Epilepsy, unspecified, not intractable, without status epilepticus; Z66 Do not resuscitate; I77.89 Other specified disorders of arteries and arterioles; D63.1 Anemia in chronic kidney disease; E83.39 Other disorders of phosphorus metabolism; Z88.0 Allergy status to penicillin; Z88.1 Allergy status to other antibiotic agents; Z79.4 Long term (current) use of insulin; Z79.899 Other long term (current) drug therapy; Z86.73 Personal history of transient ischemic attack (TIA), and cerebral infarction without residual deficits; Z89.611 Acquired absence of right leg above knee; Z90.49 Acquired absence of other specified parts of digestive tract; Z98.890 Other specified postprocedural states; Z89.422 Acquired absence of other left toe(s)
CPT/HCPCS: 36246; 36247; 36415; 36416; 51701; 70450; 71045; 75710; 80048; 80053; 80061; 80202; 81001; 82010; 82805; 83036; 83605; 83690; 83735; 83880; 83970; 84100; 84484; 85025; 87040; 87086; 90471; 90686; 90935; 93005; 93923; 96365; 96367; 96368; 96375; 97139; C1760; C1769; C1887; C1894; G0008; G0257; J1644; J1815; J1956; J2001; J3370; J3370-JW; J7999; Q4081; Q9967

== ENCOUNTER 2023-03-05 06:25 | Inpatient (IN) | payer MEDICARE, OTHER ==
[2023-03-05] MEDS ORDERED: Atropine Sulfate 1 mg/10 ml Syringe ONE (06:33)
[2023-03-05] MEDS ORDERED: CALCIUM GLUC 1 GM/NS 50 ML BAG ONE (06:35)
[2023-03-05] MEDS ORDERED: Calcium Chloride 1 GM/10 ML Abboject SYRINGE ONE ×2 (06:37→06:49)
[2023-03-05] MEDS ORDERED: Insulin Regular 300 UNITS/3 ML VIAL ONE (06:43)
[2023-03-05 06:45] LABS: #Eosinphils 0.3 thou/uL (0.0-0.7); #Monocytes 0.8 thou/uL (0.11-0.59); #Neutrophils 5.1 thou/uL (1.40-6.50); %Basophils 0.5 % (0.0-1.0); %Lymphocytes 26.4 % (21.0-51.0); %Neutrophils 59.9 % (42.0-75.0); Hematocrit 33.9 % (42.0-52.0); Hemoglobin 11.3 g/dL (14.0-18.0); Mean Corpuscular HGB CONC 33.3 g/dL (32.0-36.0); Mean Platelet Volume 10.2 fL (7.4-10.4); Platelet Count 150 10x3/uL (130-400); RBC Distribution Width 13.2 % (11.5-14.5); Red Blood Cell (RBC) Count 3.53 mill/uL (4.70-6.10); White Blood Cell (WBC) Count 8.5 10x3/uL (4.8-10.8)
[2023-03-05] MEDS ORDERED: Dextrose 50% Abboject 50 ML SYRINGE SLOW IVP SCH (06:45)
[2023-03-05] MEDS ORDERED: Sodium Bicarbonate Tab 325 MG TAB ONE (06:49)
[2023-03-05] MEDS ORDERED: Sodium Bicarb 50 MEQ/50 ML VIAL ONE (06:50)
[2023-03-05 06:53] LABS: Actual Bicarbonate (HCO3v) 19.1 mEq/L (22-28); Base Excess -7.2 mEq/L (-2.0 to +3.0); Calcium, Ionized (venous) 1.11 mmol/L (1.16-1.32); Chloride (VBG) 98 mmol/L (98-106); Hematocrit-VBG 35 % (42.0-52.0); Hemoglobin (Hb) 11.8 g/dL (13.1-17.2); Sodium 131 mmol/L (133-146); pH (venous) 7.282 (7.32-7.43)
[2023-03-05 06:57] LABS: Potassium (VBG) 7.68 mmol/L (3.70-5.30)
[2023-03-05 07:04] LABS: PTT 31.4 sec (22.9-36.1); Prothrombin Time 13.9 sec (12.0-14.7)
[2023-03-05] MEDS ORDERED: Albuterol 2.5 MG/0.5 ML NEB ONE (07:10)
[2023-03-05 07:13] LABS: ALT (SGPT) 9 U/L (8-55); AST (SGOT) 12 U/L (5-34); Albumin 4.2 g/dL (3.4-4.8); Alkaline Phosphatase 144 U/L (40-110); Anion Gap 23 mmol/L (10-20); BUN (Urea Nitrogen) 101 mg/dL (8.4-25.7); Bilirubin, Total 0.5 mg/dL (0.2-1.2); Calc. Creatinine Clearance 0 mL/min (70-130); Calcium 8.2 mg/dL (7.8-10.44); Carbon Dioxide 20 mmol/L (23-31); Chloride 97 mmol/L (98-107); Estimated GFR 4; Globulin 2.8 g/dL (2.4-3.5); Glucose 196 mg/dL (80-115); Lipase 25 U/L (8-78); Sodium 132 mmol/L (136-145)
[2023-03-05 07:17] LABS: Troponin I 0.054 ng/mL (< 0.028)
[2023-03-05 07:25] LABS: Potassium 7.9 mmol/L (3.5-5.1)
[2023-03-05] MEDS ORDERED: Heparin 10,000 UNITS/ 10 ML VIAL ONE (08:27)
[2023-03-05] MEDS ORDERED: Glucagon 1 MG/ML KIT IM PRN (08:55)
[2023-03-05] MEDS ORDERED: Dextrose 5% in Water 1,000 ML IV PRN (08:55)
[2023-03-05] MEDS ORDERED: Ondansetron ODT 4 MG TAB PO PRN (08:55)
[2023-03-05] MEDS ORDERED: Dextrose 50% Abboject 50 ML SYRINGE SLOW IVP PRN (08:55)
[2023-03-05 09:05] LABS: HBSAg Index 0.17 S/CO (0-0.99); Hep B Core Total Ab Non-Reactive (NonReactive); Hep B Core Total Index 0.08 S/CO (0-0.79); Hep B Surf Ag Non-Reactive S/CO (NonReactive); Hep C IgG Ab Non-Reactive S/CO (NonReactive); Hep C Index 0.35 S/CO (0-0.79)
[2023-03-05 09:07] LABS: HBSAB Concentration 261.29 mIU/mL; Hep B Surf AB Reactive (NonReactive)
[2023-03-05 10:00] LABS: Troponin I 0.041 ng/mL (< 0.028)
[2023-03-05 16:12] VITALS: BMI 38.6
[2023-03-05 17:38] LABS: ALT (SGPT) 9 U/L (8-55); AST (SGOT) 12 U/L (5-34); Alkaline Phosphatase 114 U/L (40-110); Anion Gap 19 mmol/L (10-20); BUN (Urea Nitrogen) 40 mg/dL (8.4-25.7); Bilirubin, Total 0.5 mg/dL (0.2-1.2); Calc. Creatinine Clearance 18 mL/min (70-130); Calcium 8.6 mg/dL (7.8-10.44); Carbon Dioxide 26 mmol/L (23-31); Chloride 97 mmol/L (98-107); Estimated GFR 9; Globulin 2.3 g/dL (2.4-3.5); Glucose 213 mg/dL (80-115); Potassium 4.7 mmol/L (3.5-5.1); Protein, Total 6.3 g/dL (5.8-8.1); Sodium 137 mmol/L (136-145)
[2023-03-05 17:42] LABS: Troponin I 0.037 ng/mL (< 0.028)
[2023-03-05] MEDS: Insulin Regular 300 UNITS/3 ML VIAL SC PRN (18:45)
[2023-03-05] MEDS: Acetaminophen 325 MG TAB PO PRN (20:54)
[2023-03-05] MEDS: levETIRAcetam 500 MG TAB PO SCH (20:54)
[2023-03-05] MEDS: Atorvastatin Calcium 40 MG TAB PO SCH (20:54)
[2023-03-06 04:47] LABS: #Eosinphils 0.3 thou/uL (0.0-0.7); #Monocytes 0.8 thou/uL (0.11-0.59); #Neutrophils 6.1 thou/uL (1.40-6.50); %Basophils 0.3 % (0.0-1.0); %Eosinophils 3.1 % (0.0-10.0); %Lymphocytes 16.9 % (21.0-51.0); %Monocytes 9.3 % (0.0-10.0); %Neutrophils 70.2 % (42.0-75.0); Hematocrit 32.2 % (42.0-52.0); Hemoglobin 10.6 g/dL (14.0-18.0); Mean Corpuscular HGB CONC 32.9 g/dL (32.0-36.0); Mean Corpuscular Hemoglobin 32.1 pg (27.0-31.0); Mean Corpuscular Volume 97.6 fl (78.0-98.0); Mean Platelet Volume 10.6 fL (7.4-10.4); Platelet Count 141 10x3/uL (130-400); RBC Distribution Width 13.1 % (11.5-14.5); White Blood Cell (WBC) Count 8.8 10x3/uL (4.8-10.8)
[2023-03-06 05:24] LABS: ALT (SGPT) 9 U/L (8-55); AST (SGOT) 14 U/L (5-34); Albumin 3.6 g/dL (3.4-4.8); Alkaline Phosphatase 113 U/L (40-110); Anion Gap 22 mmol/L (10-20); BUN (Urea Nitrogen) 52 mg/dL (8.4-25.7); Bilirubin, Total 0.4 mg/dL (0.2-1.2); Calc. Creatinine Clearance 14 mL/min (70-130); Calcium 8.2 mg/dL (7.8-10.44); Carbon Dioxide 23 mmol/L (23-31); Chloride 96 mmol/L (98-107); Estimated GFR 7; Globulin 2.9 g/dL (2.4-3.5); Glucose 165 mg/dL (80-115); Potassium 5.7 mmol/L (3.5-5.1); Protein, Total 6.5 g/dL (5.8-8.1); Sodium 135 mmol/L (136-145)
[2023-03-06] MEDS ORDERED: Insulin Regular 300 UNITS/3 ML VIAL IVP SCH ×2 (09:00→23:30)
[2023-03-06] MEDS ORDERED: Dextrose 50% Abboject 50 ML SYRINGE SLOW IVP SCH ×2 (09:00→23:30)
[2023-03-06] MEDS: levETIRAcetam 500 MG TAB PO SCH ×2 (09:47→20:35)
[2023-03-06] MEDS: Aspirin Chewable 81 MG TAB PO SCH (09:48)
[2023-03-06] MEDS: Insulin Regular 300 UNITS/3 ML VIAL SC PRN (17:41)
[2023-03-06 20:03] LABS: Anion Gap 20 mmol/L (10-20); BUN (Urea Nitrogen) 63 mg/dL (8.4-25.7); Calc. Creatinine Clearance 13 mL/min (70-130); Calcium 8.5 mg/dL (7.8-10.44); Carbon Dioxide 24 mmol/L (23-31); Chloride 96 mmol/L (98-107); Estimated GFR 6; Glucose 181 mg/dL (80-115); Potassium 5.9 mmol/L (3.5-5.1); Sodium 134 mmol/L (136-145)
[2023-03-06] MEDS: Atorvastatin Calcium 40 MG TAB PO SCH (20:35)
[2023-03-06] MEDS ORDERED: Calcium Gluc 4.6 MEQ/10 ML (100 MG/ML) SLOW IVP ONE (23:17)
[2023-03-06] MEDS ORDERED: CALCIUM GLUC 1 GM/NS 50 ML 1 GM in Premix 1 BAG IVPB SCH (23:30)
[2023-03-07 05:47] LABS: Anion Gap 24 mmol/L (10-20); BUN (Urea Nitrogen) 71 mg/dL (8.4-25.7); Carbon Dioxide 20 mmol/L (23-31); Chloride 98 mmol/L (98-107); Potassium 5.6 mmol/L (3.5-5.1); Sodium 136 mmol/L (136-145)
[2023-03-07 05:48] LABS: Calc. Creatinine Clearance 12 mL/min (70-130); Calcium 8.2 mg/dL (7.6-10.4); Estimated GFR 5; Glucose 146 mg/dL (80-115)
[2023-03-07] MEDS ORDERED: Heparin 10,000 UNITS/ 10 ML VIAL ONE (11:25)
[2023-03-07] MEDS ORDERED: Aspirin Chewable 81 MG TAB PO SCH (14:30)
[2023-03-07] MEDS ORDERED: levETIRAcetam 500 MG TAB PO SCH (14:30)
[2023-03-07] MEDS: levETIRAcetam 500 MG TAB PO SCH ×2 (14:49→20:27)
[2023-03-07] MEDS: Aspirin Chewable 81 MG TAB PO SCH (14:49)
[2023-03-07] MEDS: Atorvastatin Calcium 40 MG TAB PO SCH (20:27)
[2023-03-08 04:14] LABS: #Eosinphils 0.4 thou/uL (0.0-0.7); #Monocytes 0.9 thou/uL (0.11-0.59); %Basophils 0.7 % (0.0-1.0); %Eosinophils 6.8 % (0.0-10.0); %Lymphocytes 24.3 % (21.0-51.0); %Monocytes 15.3 % (0.0-10.0); %Neutrophils 52.7 % (42.0-75.0); Hematocrit 33.6 % (42.0-52.0); Mean Corpuscular HGB CONC 32.7 g/dL (32.0-36.0); Mean Corpuscular Hemoglobin 31.5 pg (27.0-31.0); Mean Corpuscular Volume 96.3 fl (78.0-98.0); Mean Platelet Volume 9.7 fL (7.4-10.4); Platelet Count 145 10x3/uL (130-400); RBC Distribution Width 12.6 % (11.5-14.5); Red Blood Cell (RBC) Count 3.49 mill/uL (4.70-6.10); White Blood Cell (WBC) Count 5.8 10x3/uL (4.8-10.8)
[2023-03-08 04:37] LABS: Anion Gap 19 mmol/L (10-20); BUN (Urea Nitrogen) 42 mg/dL (8.4-25.7); Calc. Creatinine Clearance 18 mL/min (70-130); Calcium 8.5 mg/dL (7.8-10.44); Carbon Dioxide 26 mmol/L (23-31); Chloride 97 mmol/L (98-107); Estimated GFR 8; Glucose 130 mg/dL (80-115); Potassium 4.5 mmol/L (3.5-5.1); Sodium 137 mmol/L (136-145)
[2023-03-08] MEDS: Aspirin Chewable 81 MG TAB PO SCH (09:03)
[2023-03-08] MEDS: levETIRAcetam 500 MG TAB PO SCH ×2 (09:04→21:29)
[2023-03-08] MEDS: Insulin Regular 300 UNITS/3 ML VIAL SC PRN (11:59)
[2023-03-08] MEDS ORDERED: Amlodipine 10 MG TAB PO SCH (21:00)
[2023-03-08] MEDS ORDERED: hydrALAZINE 25 MG TAB PO SCH (21:00)
[2023-03-08] MEDS: Atorvastatin Calcium 40 MG TAB PO SCH (21:30)
[2023-03-09 05:24] LABS: Anion Gap 23 mmol/L (10-20); BUN (Urea Nitrogen) 60 mg/dL (8.4-25.7); Calc. Creatinine Clearance 14 mL/min (70-130); Calcium 8.5 mg/dL (7.8-10.44); Carbon Dioxide 23 mmol/L (23-31); Chloride 95 mmol/L (98-107); Estimated GFR 6; Glucose 100 mg/dL (80-115); Potassium 4.7 mmol/L (3.5-5.1); Sodium 136 mmol/L (136-145)
[2023-03-09] MEDS: Amlodipine 10 MG TAB PO SCH (07:40)
[2023-03-09] MEDS: Aspirin Chewable 81 MG TAB PO SCH (07:40)
[2023-03-09] MEDS: levETIRAcetam 500 MG TAB PO SCH ×2 (07:40→20:55)
[2023-03-09] MEDS: Atorvastatin Calcium 40 MG TAB PO SCH (20:55)
[2023-03-09] MEDS ORDERED: Amlodipine 10 MG TAB PO SCH (21:30)
[2023-03-10 05:26] LABS: Anion Gap 19 mmol/L (10-20); BUN (Urea Nitrogen) 33 mg/dL (8.4-25.7); Calc. Creatinine Clearance 20 mL/min (70-130); Calcium 8.4 mg/dL (7.8-10.44); Carbon Dioxide 27 mmol/L (23-31); Chloride 97 mmol/L (98-107); Estimated GFR 10; Glucose 107 mg/dL (80-115); Potassium 4.4 mmol/L (3.5-5.1); Sodium 139 mmol/L (136-145)
[2023-03-10] MEDS: levETIRAcetam 500 MG TAB PO SCH ×2 (08:53→20:38)
[2023-03-10] MEDS: Amlodipine 10 MG TAB PO SCH (08:53)
[2023-03-10] MEDS: Aspirin Chewable 81 MG TAB PO SCH (08:53)
[2023-03-10] MEDS ORDERED: Albuterol 200 PUFF (6.7GM INHALER) INH PRN (15:35)
[2023-03-10] MEDS: Atorvastatin Calcium 40 MG TAB PO SCH (20:38)
[2023-03-10] MEDS: Acetaminophen 325 MG TAB PO PRN (20:47)
[2023-03-11 06:09] LABS: Anion Gap 20 mmol/L (10-20); BUN (Urea Nitrogen) 51 mg/dL (8.4-25.7); Calc. Creatinine Clearance 15 mL/min (70-130); Calcium 8.4 mg/dL (7.8-10.44); Carbon Dioxide 24 mmol/L (23-31); Chloride 97 mmol/L (98-107); Estimated GFR 7; Glucose 118 mg/dL (80-115); Potassium 4.6 mmol/L (3.5-5.1); Sodium 136 mmol/L (136-145)
[2023-03-11] MEDS: Aspirin Chewable 81 MG TAB PO SCH (08:44)
[2023-03-11] MEDS: Amlodipine 10 MG TAB PO SCH (08:44)
[2023-03-11] MEDS: levETIRAcetam 500 MG TAB PO SCH (08:44)
[2023-03-11] MEDS: Acetaminophen 325 MG TAB PO PRN (08:44)
[2023-03-11 09:08] VITALS: BP 138/73; TEMP 98.7
== END 2023-03-11 16:53 | disposition home or self-care (01) | DRG 70 ==
LOC: ERS 06:25 → SUATTDRO 06:25 → 2NO 10:16 → OBSVTOIN 03-06 13:36 → MSONC 03-10 12:52
PROVIDERS: ADMIT Internal Medicine; ATTEND Internal Medicine
PROC: 5A1D70Z Performance of Urinary Filtration, Intermittent, Less than 6 Hours Per Day (ICD-10-PCS; principal; 2023-03-05)
PROC: 5A1D70Z Performance of Urinary Filtration, Intermittent, Less than 6 Hours Per Day (ICD-10-PCS; 2023-03-07)
DX: G93.41 Metabolic encephalopathy (principal); N18.6 End stage renal disease; I13.2 Hypertensive heart and chronic kidney disease with heart failure and with stage 5 chronic kidney disease, or end stage renal disease; E11.22 Type 2 diabetes mellitus with diabetic chronic kidney disease; G40.909 Epilepsy, unspecified, not intractable, without status epilepticus; E87.5 Hyperkalemia; I44.0 Atrioventricular block, first degree; E11.40 Type 2 diabetes mellitus with diabetic neuropathy, unspecified; F32.A Depression, unspecified; I50.9 Heart failure, unspecified; E11.51 Type 2 diabetes mellitus with diabetic peripheral angiopathy without gangrene; D63.1 Anemia in chronic kidney disease; R53.81 Other malaise; J45.909 Unspecified asthma, uncomplicated; R53.1 Weakness; I44.1 Atrioventricular block, second degree; Z86.73 Personal history of transient ischemic attack (TIA), and cerebral infarction without residual deficits; Z89.611 Acquired absence of right leg above knee; Z88.0 Allergy status to penicillin; Z88.8 Allergy status to other drugs, medicaments and biological substances; Z88.1 Allergy status to other antibiotic agents; Z99.2 Dependence on renal dialysis; Z79.899 Other long term (current) drug therapy; Z79.82 Long term (current) use of aspirin; Z90.49 Acquired absence of other specified parts of digestive tract; Z98.890 Other specified postprocedural states; Z90.89 Acquired absence of other organs
CPT/HCPCS: 36415; 36416; 70450; 71045; 80048; 80053; 82140; 82805; 83605; 83690; 83880; 84443; 84484; 85025; 85610; 85730; 86704; 90935; 93005; 93010; 94644; 94760; 96374; 96375; 96376; G0257; G0378; J0461; J0613; J1644; J1815; J7611; J7999

== ENCOUNTER 2023-03-21 00:36 | Inpatient (IN) | payer OTHER ==
[2023-03-21 01:22] LABS: #Basophils 0.1 thou/uL (0.0-0.2); #Eosinphils 0.2 thou/uL (0.0-0.7); #Monocytes 0.7 thou/uL (0.11-0.59); #Neutrophils 4.9 thou/uL (1.40-6.50); %Basophils 0.8 % (0.0-1.0); %Eosinophils 3.2 % (0.0-10.0); %Lymphocytes 16.5 % (21.0-51.0); %Monocytes 10.2 % (0.0-10.0); %Neutrophils 68.6 % (42.0-75.0); Hematocrit 34.9 % (42.0-52.0); Hemoglobin 11.3 g/dL (14.0-18.0); Mean Corpuscular HGB CONC 32.4 g/dL (32.0-36.0); Mean Corpuscular Hemoglobin 31.6 pg (27.0-31.0); Mean Corpuscular Volume 97.5 fl (78.0-98.0); Mean Platelet Volume 10.1 fL (7.4-10.4); Platelet Count 190 10x3/uL (130-400); RBC Distribution Width 12.7 % (11.5-14.5); Red Blood Cell (RBC) Count 3.58 mill/uL (4.70-6.10); White Blood Cell (WBC) Count 7.1 10x3/uL (4.8-10.8)
[2023-03-21 01:55] LABS: ALT (SGPT) 13 U/L (8-55); AST (SGOT) 17 U/L (5-34); Albumin 3.9 g/dL (3.4-4.8); Alkaline Phosphatase 127 U/L (40-110); BUN (Urea Nitrogen) 30 mg/dL (8.4-25.7); Bilirubin, Total 0.4 mg/dL (0.2-1.2); Calc. Creatinine Clearance 0 mL/min (70-130); Calcium 8.7 mg/dL (7.8-10.44); Carbon Dioxide 25 mmol/L (23-31); Estimated GFR 12; Glucose 146 mg/dL (80-115); Protein, Total 6.9 g/dL (5.8-8.1)
[2023-03-21 02:16] LABS: Anion Gap 18 mmol/L (10-20); Chloride 99 mmol/L (98-107); Potassium 3.9 mmol/L (3.5-5.1); Sodium 136 mmol/L (136-145)
[2023-03-21] MEDS ORDERED: Dextrose 5% in Water 1,000 ML IV PRN (04:07)
[2023-03-21] MEDS ORDERED: Ondansetron ODT 4 MG TAB PO PRN (04:07)
[2023-03-21] MEDS ORDERED: Acetaminophen 650 MG Suppository PR PRN (04:07)
[2023-03-21] MEDS ORDERED: Ondansetron PF 4 MG/2 ML Vial IVP PRN (04:07)
[2023-03-21] MEDS ORDERED: Glucagon 1 MG/ML KIT IM PRN (04:07)
[2023-03-21] MEDS ORDERED: Acetaminophen 325 MG TAB PO PRN (04:07)
[2023-03-21] MEDS ORDERED: Dextrose 50% Abboject 50 ML SYRINGE SLOW IVP PRN (04:07)
[2023-03-21 05:10] LABS: Lactic Acid 1.3 mmol/L (0.5-2.2)
[2023-03-21 05:40] LABS: Acetaminophen Less than 10 mcg/mL (10.0-30.0); Alcohol Less than 10.0 mg/dL (Less than 10); Salicylate Less than 8.0 mg/dL (15.0-30.0)
[2023-03-21] MEDS ORDERED: Sucroferric Oxyhydroxide [Velphoro] 500 MG Tab.Chew PO SCH (09:00)
[2023-03-21] MEDS ORDERED: levETIRAcetam 500 MG TAB ONE (10:35)
[2023-03-21] MEDS ORDERED: Clopidogrel Bisulfate 75 MG TAB ONE (10:35)
[2023-03-21] MEDS ORDERED: Aspirin Chewable 81 MG TAB ONE (10:35)
[2023-03-21] MEDS: Clopidogrel Bisulfate 75 MG TAB PO SCH (10:38)
[2023-03-21] MEDS: Aspirin Chewable 81 MG TAB PO SCH (10:38)
[2023-03-21] MEDS: levETIRAcetam 500 MG TAB PO SCH ×2 (10:38→20:39)
[2023-03-21 16:55] VITALS: BMI 38.9
[2023-03-21] MEDS: Atorvastatin Calcium 40 MG TAB PO SCH (20:39)
[2023-03-22 04:41] LABS: #Basophils 0.1 thou/uL (0.0-0.2); #Eosinphils 0.3 thou/uL (0.0-0.7); #Monocytes 0.6 thou/uL (0.11-0.59); #Neutrophils 3.9 thou/uL (1.40-6.50); %Basophils 0.8 % (0.0-1.0); %Eosinophils 3.5 % (0.0-10.0); %Lymphocytes 34.1 % (21.0-51.0); %Monocytes 7.8 % (0.0-10.0); %Neutrophils 53.5 % (42.0-75.0); Hematocrit 34.8 % (42.0-52.0); Hemoglobin 10.9 g/dL (14.0-18.0); Mean Corpuscular HGB CONC 31.3 g/dL (32.0-36.0); Mean Corpuscular Hemoglobin 31.8 pg (27.0-31.0); Mean Corpuscular Volume 101.5 fl (78.0-98.0); Mean Platelet Volume 10.8 fL (7.4-10.4); Platelet Count 142 10x3/uL (130-400); RBC Distribution Width 12.8 % (11.5-14.5); Red Blood Cell (RBC) Count 3.43 mill/uL (4.70-6.10); White Blood Cell (WBC) Count 7.3 10x3/uL (4.8-10.8)
[2023-03-22 07:23] LABS: Chloride 100 mmol/L (98-107); Potassium 5.7 mmol/L (3.5-5.1); Sodium 135 mmol/L (136-145)
[2023-03-22 07:24] LABS: Calcium 8.4 mg/dL (7.8-10.44); Glucose 134 mg/dL (80-115)
[2023-03-22 07:26] LABS: Anion Gap 17 mmol/L (10-20); Carbon Dioxide 24 mmol/L (23-31)
[2023-03-22 07:28] LABS: BUN (Urea Nitrogen) 48 mg/dL (8.4-25.7); Calc. Creatinine Clearance 17 mL/min (70-130); Estimated GFR 8
[2023-03-22] MEDS: levETIRAcetam 500 MG TAB PO SCH ×2 (08:24→22:15)
[2023-03-22] MEDS: Clopidogrel Bisulfate 75 MG TAB PO SCH (08:25)
[2023-03-22] MEDS: Aspirin Chewable 81 MG TAB PO SCH (08:25)
[2023-03-22] MEDS ORDERED: EPOETIN ALFA-EPBX (ESRD) 10,000 UNITS/ML VIAL SC SCH (10:00)
[2023-03-22] MEDS ORDERED: Epoetin (ESRD) 10,000 UNITS/ML VIAL SC SCH (10:00)
[2023-03-22] MEDS: Insulin Regular 300 UNITS/3 ML VIAL SC PRN (18:12)
[2023-03-22] MEDS: Atorvastatin Calcium 40 MG TAB PO SCH (22:15)
[2023-03-23 05:10] LABS: #Eosinphils 0.2 thou/uL (0.0-0.7); #Monocytes 0.6 thou/uL (0.11-0.59); #Neutrophils 3.8 thou/uL (1.40-6.50); %Basophils 0.6 % (0.0-1.0); %Eosinophils 3.5 % (0.0-10.0); %Lymphocytes 31.8 % (21.0-51.0); %Monocytes 8.3 % (0.0-10.0); %Neutrophils 55.5 % (42.0-75.0); Hematocrit 32.5 % (42.0-52.0); Hemoglobin 10.7 g/dL (14.0-18.0); Mean Corpuscular HGB CONC 32.9 g/dL (32.0-36.0); Mean Corpuscular Hemoglobin 32.4 pg (27.0-31.0); Mean Corpuscular Volume 98.5 fl (78.0-98.0); Mean Platelet Volume 11.2 fL (7.4-10.4); Platelet Count 110 10x3/uL (130-400); RBC Distribution Width 12.6 % (11.5-14.5); White Blood Cell (WBC) Count 6.8 10x3/uL (4.8-10.8)
[2023-03-23 05:33] LABS: Anion Gap 22 mmol/L (10-20); BUN (Urea Nitrogen) 64 mg/dL (8.4-25.7); Calc. Creatinine Clearance 14 mL/min (70-130); Calcium 7.7 mg/dL (7.8-10.44); Carbon Dioxide 17 mmol/L (23-31); Chloride 99 mmol/L (98-107); Estimated GFR 6; Glucose 240 mg/dL (80-115); Sodium 132 mmol/L (136-145)
[2023-03-23] MEDS: levETIRAcetam 500 MG TAB PO SCH ×2 (13:01→21:44)
[2023-03-23] MEDS: Clopidogrel Bisulfate 75 MG TAB PO SCH (13:02)
[2023-03-23] MEDS: Aspirin Chewable 81 MG TAB PO SCH (13:02)
[2023-03-23] MEDS: Insulin Regular 300 UNITS/3 ML VIAL SC PRN (17:43)
[2023-03-23] MEDS: Atorvastatin Calcium 40 MG TAB PO SCH (21:44)
[2023-03-24 05:07] LABS: #Basophils 0.1 thou/uL (0.0-0.2); #Eosinphils 0.3 thou/uL (0.0-0.7); #Monocytes 0.8 thou/uL (0.11-0.59); #Neutrophils 4.2 thou/uL (1.40-6.50); %Basophils 0.7 % (0.0-1.0); %Eosinophils 3.9 % (0.0-10.0); %Lymphocytes 30.1 % (21.0-51.0); %Monocytes 10.3 % (0.0-10.0); %Neutrophils 54.9 % (42.0-75.0); Hematocrit 34.4 % (42.0-52.0); Hemoglobin 11.6 g/dL (14.0-18.0); Mean Corpuscular HGB CONC 33.7 g/dL (32.0-36.0); Mean Corpuscular Hemoglobin 31.8 pg (27.0-31.0); Mean Corpuscular Volume 94.2 fl (78.0-98.0); Platelet Count 173 10x3/uL (130-400); RBC Distribution Width 12.5 % (11.5-14.5); Red Blood Cell (RBC) Count 3.65 mill/uL (4.70-6.10); White Blood Cell (WBC) Count 7.7 10x3/uL (4.8-10.8)
[2023-03-24 05:40] LABS: Anion Gap 15 mmol/L (10-20); BUN (Urea Nitrogen) 35 mg/dL (8.4-25.7); Calc. Creatinine Clearance 20 mL/min (70-130); Calcium 8.2 mg/dL (7.8-10.44); Carbon Dioxide 27 mmol/L (23-31); Chloride 98 mmol/L (98-107); Estimated GFR 10; Glucose 175 mg/dL (80-115); Potassium 4.4 mmol/L (3.5-5.1); Sodium 136 mmol/L (136-145)
[2023-03-24] MEDS ORDERED: Amlodipine 10 MG TAB PO SCH (09:00)
[2023-03-24] MEDS ORDERED: Insulin Glargine 30 UNITS/0.3 ML VIAL SC SCH (09:00)
[2023-03-24] MEDS: Clopidogrel Bisulfate 75 MG TAB PO SCH (09:12)
[2023-03-24] MEDS: Aspirin Chewable 81 MG TAB PO SCH (09:12)
[2023-03-24] MEDS: levETIRAcetam 500 MG TAB PO SCH (09:12)
[2023-03-24 09:17] VITALS: BP 161/70
[2023-03-24 12:21] VITALS: TEMP 98.3
== END 2023-03-24 15:30 | disposition home or self-care (01) | DRG 637 ==
LOC: ERS 00:36 → ERHOLD 03:45 → 2NO 16:34 → OBSVTOIN 03-23 14:32
PROVIDERS: ADMIT Student in an Organized Health Care Education/Training Program; ATTEND Nurse Practitioner Acute Care
PROC: 5A1D70Z Performance of Urinary Filtration, Intermittent, Less than 6 Hours Per Day (ICD-10-PCS; principal; 2023-03-23)
DX: E11.649 Type 2 diabetes mellitus with hypoglycemia without coma (principal); G93.41 Metabolic encephalopathy; I69.352 Hemiplegia and hemiparesis following cerebral infarction affecting left dominant side; N18.6 End stage renal disease; E11.22 Type 2 diabetes mellitus with diabetic chronic kidney disease; G40.909 Epilepsy, unspecified, not intractable, without status epilepticus; E11.40 Type 2 diabetes mellitus with diabetic neuropathy, unspecified; I95.9 Hypotension, unspecified; E87.5 Hyperkalemia; D63.1 Anemia in chronic kidney disease; R41.3 Other amnesia; F32.A Depression, unspecified; F03.90 Unspecified dementia, unspecified severity, without behavioral disturbance, psychotic disturbance, mood disturbance, and anxiety; Z66 Do not resuscitate; Z90.49 Acquired absence of other specified parts of digestive tract; Z79.4 Long term (current) use of insulin; Z89.511 Acquired absence of right leg below knee; Z99.2 Dependence on renal dialysis; Z88.0 Allergy status to penicillin; Z88.1 Allergy status to other antibiotic agents; Z88.8 Allergy status to other drugs, medicaments and biological substances; Z79.899 Other long term (current) drug therapy; Z79.82 Long term (current) use of aspirin; Z90.89 Acquired absence of other organs; Z98.890 Other specified postprocedural states
CPT/HCPCS: 36415; 36416; 70450; 80048; 80053; 80307; 82140; 83605; 85025; 87040; 93005; 94760; 96360; 96372; G0378; J1815; Q5105

== ENCOUNTER 2023-05-17 13:35 | Inpatient (IN) | payer MEDICARE ==
[2023-05-17 15:04] LABS: #Eosinphils 0.1 thou/uL (0.0-0.7); #Monocytes 0.6 thou/uL (0.11-0.59); #Neutrophils 10.9 thou/uL (1.40-6.50); %Basophils 0.2 % (0.0-1.0); %Lymphocytes 5.4 % (21.0-51.0); %Monocytes 4.5 % (0.0-10.0); %Neutrophils 88.6 % (42.0-75.0); Hematocrit 40.2 % (42.0-52.0); Hemoglobin 12.9 g/dL (14.0-18.0); Mean Corpuscular HGB CONC 32.1 g/dL (32.0-36.0); Mean Corpuscular Hemoglobin 31.2 pg (27.0-31.0); Mean Corpuscular Volume 97.3 fl (78.0-98.0); Platelet Count 131 10x3/uL (130-400); RBC Distribution Width 12.8 % (11.5-14.5); Red Blood Cell (RBC) Count 4.13 mill/uL (4.70-6.10); White Blood Cell (WBC) Count 12.3 10x3/uL (4.8-10.8)
[2023-05-17 15:16] LABS: ALT (SGPT) 18 U/L (8-55); AST (SGOT) 20 U/L (5-34); Alkaline Phosphatase 123 U/L (40-110); Anion Gap 23 mmol/L (10-20); BUN (Urea Nitrogen) 38 mg/dL (8.4-25.7); Bilirubin, Total 0.5 mg/dL (0.2-1.2); Calc. Creatinine Clearance 0 mL/min (70-130); Calcium 8.2 mg/dL (7.8-10.44); Carbon Dioxide 19 mmol/L (23-31); Chloride 95 mmol/L (98-107); Estimated GFR 7; Globulin 3.2 g/dL (2.4-3.5); Glucose 208 mg/dL (80-115); Potassium 5.2 mmol/L (3.5-5.1); Protein, Total 7.2 g/dL (5.8-8.1); Sodium 132 mmol/L (136-145)
[2023-05-17 15:36] LABS: SARS-CoV-2 NAA Rapid Test Not Detected (NotDetected)
[2023-05-17] MEDS ORDERED: Acetaminophen 500 MG TAB ONE (17:41)
[2023-05-17] MEDS ORDERED: Sodium Chloride 0.9% 100 ML ONE (17:41)
[2023-05-17] MEDS ORDERED: Cefepime 1 GM VIAL ONE (17:41)
[2023-05-17 17:45] LABS: Lactic Acid 1.5 mmol/L (0.5-2.2)
[2023-05-17 18:02] LABS: Bacteria/HPF None Seen HPF (None Seen); Bilirubin Negative (Negative); Blood, Urine 2+ (Negative); CAUTI Indications for Culture Fever or rigors; Clarity Turbid (Clear); Glucose, Urine (Dipstick) 500 mg/dL (Negative); Ketone, Urine Negative (Negative); Leukocyte 500 Leu/uL (Negative); Nitrite Negative (Negative); Protein, Urine (Dipstick) 100 mg/dL (Neg-Trace); RBC/HPF 0-3 HPF (0-3); Specific Gravity, Urine 1.012 (1.002-1.036); Squamous Epithelial 0-3 HPF (0-3); Urobilinogen Normal mg/dL (Less than 2); WBC/HPF Greater than 50 HPF (0-3)
[2023-05-17 18:15] LABS: Sperm/HPF Rare HPF (None Seen)
[2023-05-17 18:17] LABS: Urine Culture Reflex Yes Yes
[2023-05-17] MEDS ORDERED: Dextrose 50% Abboject 50 ML SYRINGE SLOW IVP PRN (18:53)
[2023-05-17] MEDS ORDERED: HumaLOG 300 UNITS/3 ML VIAL SC PRN (18:53)
[2023-05-17] MEDS ORDERED: Ondansetron ODT 4 MG TAB PO PRN (18:53)
[2023-05-17] MEDS ORDERED: Glucagon 1 MG/ML KIT IM PRN (18:53)
[2023-05-17] MEDS ORDERED: Dextrose 5% in Water 1,000 ML IV PRN (18:53)
[2023-05-17 20:39] VITALS: BMI 36.8
[2023-05-17] MEDS: Heparin 5,000 UNITS/ML VIAL SC SCH (20:39)
[2023-05-17] MEDS: hydrALAZINE 25 MG TAB PO SCH (20:39)
[2023-05-17] MEDS: levETIRAcetam 500 MG TAB PO SCH (20:39)
[2023-05-17] MEDS ORDERED: Vancomycin Dialysis Sliding Scale (Wt > 99) FS SCH (20:45)
[2023-05-17] MEDS ORDERED: Vancomycin (BATCH) 2 GM in Premix 1 BAG IVPB SCH (21:00)
[2023-05-17] MEDS ORDERED: Sucroferric Oxyhydroxide (Velphoro) 500 MG Tab.Chew PO SCH (21:00)
[2023-05-17 21:14] LABS: Vancomycin, Trough Less than 1.1 ug/mL
[2023-05-17 21:19] LABS: Magnesium 2.4 mg/dL (1.6-2.6); Phosphorus 6.9 mg/dL (2.3-4.7)
[2023-05-17] MEDS: Calcium Acetate 667 MG CAP PO SCH (21:36)
[2023-05-17] MEDS: Acetaminophen 325 MG TAB PO PRN (22:48)
[2023-05-17] MEDS: Melatonin 3 MG TAB PO PRN (22:48)
[2023-05-18] MEDS ORDERED: Loperamide HCl 2 MG CAP PO SCH (04:45)
[2023-05-18 07:40] LABS: #Monocytes 0.5 thou/uL (0.11-0.59); #Neutrophils 6.7 thou/uL (1.40-6.50); %Basophils 0.4 % (0.0-1.0); %Eosinophils 0.1 % (0.0-10.0); %Lymphocytes 7.8 % (21.0-51.0); %Monocytes 5.8 % (0.0-10.0); %Neutrophils 85.5 % (42.0-75.0); Hematocrit 33.2 % (42.0-52.0); Mean Corpuscular HGB CONC 33.1 g/dL (32.0-36.0); Mean Corpuscular Hemoglobin 31.1 pg (27.0-31.0); Mean Platelet Volume 9.9 fL (7.4-10.4); Platelet Count 116 10x3/uL (130-400); Red Blood Cell (RBC) Count 3.54 mill/uL (4.70-6.10); White Blood Cell (WBC) Count 7.8 10x3/uL (4.8-10.8)
[2023-05-18 07:50] LABS: Mean Corpuscular Volume 93.8 fl (78.0-98.0)
[2023-05-18 07:54] LABS: Vancomycin, Random 24.9 ug/mL (See Comment)
[2023-05-18 07:55] LABS: ALT (SGPT) 14 U/L (8-55); AST (SGOT) 15 U/L (5-34); Albumin 3.2 g/dL (3.4-4.8); Alkaline Phosphatase 95 U/L (40-110); Anion Gap 19 mmol/L (10-20); BUN (Urea Nitrogen) 46 mg/dL (8.4-25.7); Bilirubin, Total 0.4 mg/dL (0.2-1.2); Calc. Creatinine Clearance 12 mL/min (70-130); Calcium 7.7 mg/dL (7.8-10.44); Carbon Dioxide 20 mmol/L (23-31); Chloride 96 mmol/L (98-107); Estimated GFR 6; Globulin 2.9 g/dL (2.4-3.5); Glucose 117 mg/dL (80-115); Magnesium 2.6 mg/dL (1.6-2.6); Phosphorus 7.6 mg/dL (2.3-4.7); Potassium 5.1 mmol/L (3.5-5.1); Protein, Total 6.1 g/dL (5.8-8.1); Sodium 130 mmol/L (136-145)
[2023-05-18] MEDS ORDERED: Vancomycin 1 GM in Sodium Chloride 0.9% 250 ML 250 ML IVPB SCH (09:00)
[2023-05-18] MEDS: hydrALAZINE 25 MG TAB PO SCH ×2 (10:52→15:03)
[2023-05-18] MEDS: Calcium Acetate 667 MG CAP PO SCH ×3 (10:52→20:09)
[2023-05-18] MEDS: Heparin 5,000 UNITS/ML VIAL SC SCH ×2 (10:52→15:03)
[2023-05-18] MEDS: Clopidogrel Bisulfate 75 MG TAB PO SCH (14:03)
[2023-05-18] MEDS: Cholecalciferol 1,000 UNITS (25 MCG) TAB PO SCH (14:03)
[2023-05-18] MEDS: FLUoxetine HCl 20 MG CAP PO SCH (14:04)
[2023-05-18] MEDS: levETIRAcetam 500 MG TAB PO SCH ×2 (14:04→20:02)
[2023-05-18] MEDS: Aspirin Chewable 81 MG TAB PO SCH (14:04)
[2023-05-18] MEDS ORDERED: Vancomycin HCl 500 MG in Sodium Chloride 0.9% 100 ML IVPB SCH (17:00)
[2023-05-18] MEDS: Acetaminophen 325 MG TAB PO PRN (17:45)
[2023-05-18] MEDS: Cefepime 1 GM in Sodium Chloride 0.9% 100 ML IVPB SCH (17:46)
[2023-05-18 18:57] LABS: #Monocytes 0.4 thou/uL (0.11-0.59); #Neutrophils 3.4 thou/uL (1.40-6.50); %Basophils 0.4 % (0.0-1.0); %Eosinophils 0.4 % (0.0-10.0); %Lymphocytes 15.7 % (21.0-51.0); %Monocytes 8.2 % (0.0-10.0); %Neutrophils 75.1 % (42.0-75.0); Hematocrit 33.8 % (42.0-52.0); Hemoglobin 11.5 g/dL (14.0-18.0); Mean Corpuscular Hemoglobin 31.6 pg (27.0-31.0); Mean Corpuscular Volume 92.9 fl (78.0-98.0); Mean Platelet Volume 9.7 fL (7.4-10.4); Platelet Count 101 10x3/uL (130-400); RBC Distribution Width 13.1 % (11.5-14.5); Red Blood Cell (RBC) Count 3.64 mill/uL (4.70-6.10); White Blood Cell (WBC) Count 4.5 10x3/uL (4.8-10.8)
[2023-05-18 19:41] LABS: ALT (SGPT) 16 U/L (8-55); AST (SGOT) 20 U/L (5-34); Albumin 3.4 g/dL (3.4-4.8); Alkaline Phosphatase 99 U/L (40-110); Anion Gap 13 mmol/L (10-20); BUN (Urea Nitrogen) 18 mg/dL (8.4-25.7); Bilirubin, Total 0.4 mg/dL (0.2-1.2); Calc. Creatinine Clearance 22 mL/min (70-130); Carbon Dioxide 27 mmol/L (23-31); Chloride 96 mmol/L (98-107); Estimated GFR 11; Globulin 2.9 g/dL (2.4-3.5); Glucose 181 mg/dL (80-115); Potassium 4.1 mmol/L (3.5-5.1); Protein, Total 6.3 g/dL (5.8-8.1); Sodium 132 mmol/L (136-145)
[2023-05-19] MEDS: hydrALAZINE 25 MG TAB PO SCH ×4 (00:07→22:06)
[2023-05-19] MEDS: Melatonin 3 MG TAB PO PRN ×2 (00:07→22:06)
[2023-05-19] MEDS: Heparin 5,000 UNITS/ML VIAL SC SCH ×4 (00:07→22:08)
[2023-05-19] MEDS: Aspirin Chewable 81 MG TAB PO SCH (08:02)
[2023-05-19] MEDS: Cholecalciferol 1,000 UNITS (25 MCG) TAB PO SCH (08:04)
[2023-05-19] MEDS: Calcium Acetate 667 MG CAP PO SCH ×3 (08:04→22:06)
[2023-05-19] MEDS: FLUoxetine HCl 20 MG CAP PO SCH (08:04)
[2023-05-19] MEDS: Clopidogrel Bisulfate 75 MG TAB PO SCH (08:04)
[2023-05-19] MEDS: levETIRAcetam 500 MG TAB PO SCH ×2 (08:04→22:06)
[2023-05-19 12:05] LABS: #Eosinphils 0.1 thou/uL (0.0-0.7); #Monocytes 0.6 thou/uL (0.11-0.59); %Basophils 0.4 % (0.0-1.0); %Eosinophils 2.7 % (0.0-10.0); %Monocytes 11.9 % (0.0-10.0); %Neutrophils 57.8 % (42.0-75.0); Hematocrit 33.2 % (42.0-52.0); Hemoglobin 10.8 g/dL (14.0-18.0); Mean Corpuscular HGB CONC 32.5 g/dL (32.0-36.0); Mean Corpuscular Volume 95.4 fl (78.0-98.0); Mean Platelet Volume 10.9 fL (7.4-10.4); Platelet Count 98 10x3/uL (130-400); RBC Distribution Width 13.1 % (11.5-14.5); Red Blood Cell (RBC) Count 3.48 mill/uL (4.70-6.10); White Blood Cell (WBC) Count 5.1 10x3/uL (4.8-10.8)
[2023-05-19 12:33] LABS: ALT (SGPT) 13 U/L (8-55); AST (SGOT) 19 U/L (5-34); Albumin 3.2 g/dL (3.4-4.8); Alkaline Phosphatase 98 U/L (40-110); Anion Gap 16 mmol/L (10-20); BUN (Urea Nitrogen) 28 mg/dL (8.4-25.7); Bilirubin, Total 0.4 mg/dL (0.2-1.2); Calc. Creatinine Clearance 16 mL/min (70-130); Calcium 8.1 mg/dL (7.8-10.44); Carbon Dioxide 26 mmol/L (23-31); Chloride 94 mmol/L (98-107); Estimated GFR 8; Globulin 2.8 g/dL (2.4-3.5); Glucose 209 mg/dL (80-115); Potassium 4.2 mmol/L (3.5-5.1); Sodium 132 mmol/L (136-145)
[2023-05-19] MEDS: Polyvinyl Alcohol 1.4%/Povidone 0.6% Opth Drops EA EYE PRN (14:22)
[2023-05-19] MEDS: Cefepime 1 GM in Sodium Chloride 0.9% 100 ML IVPB SCH (17:27)
[2023-05-19] MEDS: HumaLOG 300 UNITS/3 ML VIAL SC PRN (17:27)
[2023-05-20] MEDS: Cholecalciferol 1,000 UNITS (25 MCG) TAB PO SCH (08:33)
[2023-05-20] MEDS: hydrALAZINE 25 MG TAB PO SCH ×3 (08:33→20:30)
[2023-05-20] MEDS: Aspirin Chewable 81 MG TAB PO SCH (08:33)
[2023-05-20] MEDS: Clopidogrel Bisulfate 75 MG TAB PO SCH (08:33)
[2023-05-20] MEDS: FLUoxetine HCl 20 MG CAP PO SCH (08:33)
[2023-05-20] MEDS: levETIRAcetam 500 MG TAB PO SCH ×2 (08:33→20:30)
[2023-05-20] MEDS: Heparin 5,000 UNITS/ML VIAL SC SCH ×3 (08:34→20:30)
[2023-05-20] MEDS: Calcium Acetate 667 MG CAP PO SCH ×3 (08:34→20:30)
[2023-05-20] MEDS ORDERED: EPOETIN ALFA-EPBX (ESRD) 10,000 UNITS/ML VIAL SC SCH (12:00)
[2023-05-20 12:27] LABS: #Eosinphils 0.2 thou/uL (0.0-0.7); #Monocytes 0.7 thou/uL (0.11-0.59); #Neutrophils 2.8 thou/uL (1.40-6.50); %Basophils 0.6 % (0.0-1.0); %Eosinophils 3.9 % (0.0-10.0); %Lymphocytes 27.8 % (21.0-51.0); %Monocytes 12.6 % (0.0-10.0); %Neutrophils 54.9 % (42.0-75.0); Hematocrit 32.4 % (42.0-52.0); Hemoglobin 10.7 g/dL (14.0-18.0); Mean Corpuscular Hemoglobin 31.3 pg (27.0-31.0); Mean Corpuscular Volume 94.7 fl (78.0-98.0); Mean Platelet Volume 10.1 fL (7.4-10.4); Platelet Count 106 10x3/uL (130-400); Red Blood Cell (RBC) Count 3.42 mill/uL (4.70-6.10); White Blood Cell (WBC) Count 5.1 10x3/uL (4.8-10.8)
[2023-05-20 12:43] LABS: ALT (SGPT) 13 U/L (8-55); AST (SGOT) 17 U/L (5-34); Albumin 3.1 g/dL (3.4-4.8); Alkaline Phosphatase 91 U/L (40-110); Anion Gap 18 mmol/L (10-20); BUN (Urea Nitrogen) 39 mg/dL (8.4-25.7); Bilirubin, Total 0.4 mg/dL (0.2-1.2); Calc. Creatinine Clearance 12 mL/min (70-130); Carbon Dioxide 24 mmol/L (23-31); Chloride 91 mmol/L (98-107); Estimated GFR 6; Glucose 223 mg/dL (80-115); Potassium 4.3 mmol/L (3.5-5.1); Protein, Total 6.1 g/dL (5.8-8.1); Sodium 129 mmol/L (136-145)
[2023-05-20] MEDS: HumaLOG 300 UNITS/3 ML VIAL SC PRN (13:28)
[2023-05-20] MEDS: Polyvinyl Alcohol 1.4%/Povidone 0.6% Opth Drops EA EYE PRN (16:09)
[2023-05-20] MEDS: Cefepime 1 GM in Sodium Chloride 0.9% 100 ML IVPB SCH (17:36)
[2023-05-20] MEDS: Melatonin 3 MG TAB PO PRN (20:30)
[2023-05-21 07:47] LABS: #Eosinphils 0.2 thou/uL (0.0-0.7); #Monocytes 0.7 thou/uL (0.11-0.59); #Neutrophils 3.3 thou/uL (1.40-6.50); %Basophils 0.5 % (0.0-1.0); %Eosinophils 3.1 % (0.0-10.0); %Lymphocytes 31.2 % (21.0-51.0); %Monocytes 10.9 % (0.0-10.0); Hematocrit 32.2 % (42.0-52.0); Hemoglobin 10.4 g/dL (14.0-18.0); Mean Corpuscular HGB CONC 32.3 g/dL (32.0-36.0); Mean Corpuscular Hemoglobin 30.4 pg (27.0-31.0); Mean Corpuscular Volume 94.2 fl (78.0-98.0); Mean Platelet Volume 10.6 fL (7.4-10.4); Platelet Count 114 10x3/uL (130-400); RBC Distribution Width 12.9 % (11.5-14.5); Red Blood Cell (RBC) Count 3.42 mill/uL (4.70-6.10); White Blood Cell (WBC) Count 6.2 10x3/uL (4.8-10.8)
[2023-05-21 08:05] LABS: ALT (SGPT) 15 U/L (8-55); AST (SGOT) 16 U/L (5-34); Albumin 3.3 g/dL (3.4-4.8); Alkaline Phosphatase 105 U/L (40-110); Anion Gap 19 mmol/L (10-20); BUN (Urea Nitrogen) 53 mg/dL (8.4-25.7); Bilirubin, Total 0.5 mg/dL (0.2-1.2); Calc. Creatinine Clearance 11 mL/min (70-130); Calcium 7.8 mg/dL (7.8-10.44); Carbon Dioxide 25 mmol/L (23-31); Chloride 93 mmol/L (98-107); Estimated GFR 5; Globulin 2.5 g/dL (2.4-3.5); Glucose 188 mg/dL (80-115); Potassium 4.6 mmol/L (3.5-5.1); Protein, Total 5.8 g/dL (5.8-8.1); Sodium 132 mmol/L (136-145); Vancomycin, Random 13.5 ug/mL (See Comment)
[2023-05-21] MEDS: hydrALAZINE 25 MG TAB PO SCH ×3 (15:35→23:52)
[2023-05-21] MEDS: Calcium Acetate 667 MG CAP PO SCH ×3 (15:35→21:09)
[2023-05-21] MEDS: Heparin 5,000 UNITS/ML VIAL SC SCH ×3 (15:35→21:11)
[2023-05-21] MEDS: levETIRAcetam 500 MG TAB PO SCH ×2 (15:42→21:10)
[2023-05-21] MEDS: FLUoxetine HCl 20 MG CAP PO SCH (15:42)
[2023-05-21] MEDS: Cholecalciferol 1,000 UNITS (25 MCG) TAB PO SCH (15:43)
[2023-05-21] MEDS: Aspirin Chewable 81 MG TAB PO SCH (15:43)
[2023-05-21] MEDS: Clopidogrel Bisulfate 75 MG TAB PO SCH (15:44)
[2023-05-21] MEDS: Acetaminophen 325 MG TAB PO PRN (15:44)
[2023-05-21] MEDS ORDERED: Vancomycin (BATCH) 1.25 GM in Premix 1 BAG IVPB SCH (17:00)
[2023-05-21] MEDS: Melatonin 3 MG TAB PO PRN (21:17)
[2023-05-22 04:22] LABS: #Eosinphils 0.2 thou/uL (0.0-0.7); #Monocytes 0.7 thou/uL (0.11-0.59); #Neutrophils 2.6 thou/uL (1.40-6.50); %Basophils 0.5 % (0.0-1.0); %Eosinophils 3.8 % (0.0-10.0); %Lymphocytes 34.5 % (21.0-51.0); %Monocytes 12.4 % (0.0-10.0); %Neutrophils 48.1 % (42.0-75.0); Hematocrit 30.9 % (42.0-52.0); Hemoglobin 10.2 g/dL (14.0-18.0); Mean Corpuscular Volume 93.9 fl (78.0-98.0); Mean Platelet Volume 10.2 fL (7.4-10.4); Platelet Count 123 10x3/uL (130-400); RBC Distribution Width 12.5 % (11.5-14.5); Red Blood Cell (RBC) Count 3.29 mill/uL (4.70-6.10); White Blood Cell (WBC) Count 5.5 10x3/uL (4.8-10.8)
[2023-05-22 04:55] LABS: ALT (SGPT) 13 U/L (8-55); AST (SGOT) 19 U/L (5-34); Albumin 3.1 g/dL (3.4-4.8); Alkaline Phosphatase 112 U/L (40-110); Anion Gap 14 mmol/L (10-20); BUN (Urea Nitrogen) 26 mg/dL (8.4-25.7); Bilirubin, Total 0.4 mg/dL (0.2-1.2); Calc. Creatinine Clearance 17 mL/min (70-130); Calcium 8.3 mg/dL (7.8-10.44); Carbon Dioxide 29 mmol/L (23-31); Chloride 97 mmol/L (98-107); Estimated GFR 9; Globulin 2.8 g/dL (2.4-3.5); Glucose 199 mg/dL (80-115); Potassium 4.1 mmol/L (3.5-5.1); Protein, Total 5.9 g/dL (5.8-8.1); Sodium 136 mmol/L (136-145)
[2023-05-22 07:44] VITALS: BP 130/73; TEMP 98
[2023-05-22] MEDS: Cholecalciferol 1,000 UNITS (25 MCG) TAB PO SCH (08:31)
[2023-05-22] MEDS: levETIRAcetam 500 MG TAB PO SCH (08:31)
[2023-05-22] MEDS: FLUoxetine HCl 20 MG CAP PO SCH (08:31)
[2023-05-22] MEDS: Calcium Acetate 667 MG CAP PO SCH (08:32)
[2023-05-22] MEDS: hydrALAZINE 25 MG TAB PO SCH (08:32)
[2023-05-22] MEDS: Clopidogrel Bisulfate 75 MG TAB PO SCH (08:32)
[2023-05-22] MEDS: Heparin 5,000 UNITS/ML VIAL SC SCH (08:32)
[2023-05-22] MEDS: Aspirin Chewable 81 MG TAB PO SCH (08:32)
== END 2023-05-22 13:43 | disposition home health service (06) | DRG 865 ==
LOC: ERS 13:35 → INTOOBSV 19:16 → T4-B 19:16 → OBSVTOIN 19:21
PROVIDERS: ADMIT Student in an Organized Health Care Education/Training Program; ATTEND Student in an Organized Health Care Education/Training Program
PROC: 5A1D70Z Performance of Urinary Filtration, Intermittent, Less than 6 Hours Per Day (ICD-10-PCS; principal; 2023-05-17)
DX: B34.9 Viral infection, unspecified (principal); N18.6 End stage renal disease; N39.0 Urinary tract infection, site not specified; R65.10 Systemic inflammatory response syndrome (SIRS) of non-infectious origin without acute organ dysfunction; I12.0 Hypertensive chronic kidney disease with stage 5 chronic kidney disease or end stage renal disease; E87.1 Hypo-osmolality and hyponatremia; G45.9 Transient cerebral ischemic attack, unspecified; I69.354 Hemiplegia and hemiparesis following cerebral infarction affecting left non-dominant side; E11.22 Type 2 diabetes mellitus with diabetic chronic kidney disease; E87.5 Hyperkalemia; N20.0 Calculus of kidney; F32.A Depression, unspecified; D63.1 Anemia in chronic kidney disease; J06.9 Acute upper respiratory infection, unspecified; Z99.2 Dependence on renal dialysis; Z89.511 Acquired absence of right leg below knee; Z88.0 Allergy status to penicillin; Z88.1 Allergy status to other antibiotic agents; Z79.899 Other long term (current) drug therapy; Z79.82 Long term (current) use of aspirin; Z90.49 Acquired absence of other specified parts of digestive tract; Z90.89 Acquired absence of other organs; Z83.3 Family history of diabetes mellitus; Z82.49 Family history of ischemic heart disease and other diseases of the circulatory system; Z11.52 Encounter for screening for COVID-19; E83.39 Other disorders of phosphorus metabolism
CPT/HCPCS: 36415; 36416; 51701; 71045; 74176; 80053; 80202; 81001; 83605; 83735; 84100; 84145; 85025; 87040; 87081; 87086; 87430; 87633; 90935; 93005; 93010; 96374; G0257; J0692; J1644; J1815; J3370; J3490; Q5105

== ENCOUNTER 2023-09-03 06:32 | Inpatient (IN) | payer OTHER ==
[2023-09-03 07:17] LABS: #Basophils 0.03 10x3/uL (0.0-0.2); %Basophils 0.3 % (0.0-1.0); %Eosinophils 1.7 % (0.0-10.0); %Lymphocytes 12.2 % (21.0-51.0); %Monocytes 8.8 % (0.0-10.0); %Neutrophils 76.7 % (42.0-75.0); Hemoglobin 10.2 g/dL (14.0-18.0); Mean Corpuscular HGB CONC 32.9 g/dL (32.0-36.0); Mean Corpuscular Hemoglobin 32.1 pg (27.0-31.0); Mean Corpuscular Volume 97.5 fL (78.0-98.0); Mean Platelet Volume 10.1 fL (7.4-10.4); Platelet Count 128 10x3/uL (130-400); RBC Distribution Width 12.7 % (11.5-14.5); Red Blood Cell (RBC) Count 3.18 mill/uL (4.70-6.10)
[2023-09-03 07:27] LABS: Globulin 3.6 g/dL (2.4-3.5)
[2023-09-03 07:38] LABS: Troponin I 0.036 ng/mL (< 0.028)
[2023-09-03 07:40] LABS: ALT (SGPT) 10 U/L (8-55); AST (SGOT) 15 U/L (5-34); Albumin 3.7 g/dL (3.4-4.8); Alkaline Phosphatase 123 U/L (40-110); Anion Gap 25 mmol/L (10-20); BUN (Urea Nitrogen) 84 mg/dL (8.4-25.7); Bilirubin, Total 0.6 mg/dL (0.2-1.2); Calc. Creatinine Clearance 0 mL/min (70-130); Calcium 8.6 mg/dL (7.8-10.44); Carbon Dioxide 18 mmol/L (23-31); Chloride 96 mmol/L (98-107); Estimated GFR 5; Glucose 138 mg/dL (80-115); Lipase 9 U/L (8-78); Potassium 7.2 mmol/L (3.5-5.1); Protein, Total 7.3 g/dL (5.8-8.1); Sodium 132 mmol/L (136-145)
[2023-09-03] MEDS ORDERED: Morphine 4 MG/ML VIAL ONE (07:53)
[2023-09-03] MEDS ORDERED: CALCIUM GLUC 1 GM (50 ML) BAG ONE (07:53)
[2023-09-03] MEDS ORDERED: INSULIN REGULAR IN 0.9 % NACL 100 UNITS/100 ML BAG ONE (08:10)
[2023-09-03] MEDS ORDERED: Dextrose 10% in Water 250 ML ONE (08:10)
[2023-09-03] MEDS ORDERED: HumaLOG 300 UNITS/3 ML VIAL ONE (08:14)
[2023-09-03] MEDS ORDERED: Insulin Regular 300 UNITS/3 ML VIAL ONE (08:19)
[2023-09-03 09:02] LABS: #Basophils 0.03 10x3/uL (0.0-0.2); %Basophils 0.3 % (0.0-1.0); %Eosinophils 1.9 % (0.0-10.0); %Lymphocytes 15.2 % (21.0-51.0); %Monocytes 10.7 % (0.0-10.0); %Neutrophils 71.6 % (42.0-75.0); Hematocrit 27.9 % (42.0-52.0); Hemoglobin 9.2 g/dL (14.0-18.0); Mean Corpuscular Hemoglobin 31.9 pg (27.0-31.0); Mean Corpuscular Volume 96.9 fL (78.0-98.0); Mean Platelet Volume 9.9 fL (7.4-10.4); Platelet Count 117 10x3/uL (130-400); RBC Distribution Width 12.8 % (11.5-14.5); Red Blood Cell (RBC) Count 2.88 mill/uL (4.70-6.10)
[2023-09-03] MEDS ORDERED: Glucagon 1 MG/ML KIT IM PRN (09:21)
[2023-09-03] MEDS ORDERED: HumaLOG 300 UNITS/3 ML VIAL SC PRN (09:21)
[2023-09-03] MEDS ORDERED: Dextrose 5% in Water 1,000 ML IV PRN (09:21)
[2023-09-03] MEDS ORDERED: Dextrose 50% Abboject 50 ML SYRINGE SLOW IVP PRN (09:21)
[2023-09-03] MEDS ORDERED: Ondansetron PF 4 MG/2 ML Vial IVP PRN (09:21)
[2023-09-03] MEDS ORDERED: Heparin 10,000 UNITS/ 10 ML VIAL ONE (10:49)
[2023-09-03] MEDS: Sodium Bicarb 50 mEq/50 ML VIAL IVP SCH (11:36)
[2023-09-03] MEDS: LOKELMA 10 GM PACKET PO SCH (11:37)
[2023-09-03] MEDS ORDERED: Iopamidol-370 76% 500 ML MDV (1 ML CHARGE) ONE (13:19)
[2023-09-03 14:51] VITALS: BMI 29.5
[2023-09-03] MEDS: Polyethylene Glycol 3350 17 GM Packet PO SCH (16:27)
[2023-09-03] MEDS: Sevelamer Carbonate 800 MG TAB PO SCH (16:28)
[2023-09-03] MEDS: levETIRAcetam 500 MG TAB PO SCH (17:10)
[2023-09-03] MEDS: Carvedilol 3.125 MG TAB PO SCH (17:13)
[2023-09-03] MEDS: Heparin 5,000 UNITS/ML VIAL SC SCH (17:14)
[2023-09-03] MEDS ORDERED: Ciprofloxacin 500 MG TAB PO SCH (20:00)
[2023-09-03] MEDS: Senokot S 8.6-50 MG TAB PO SCH (21:03)
[2023-09-03] MEDS: Cipro 250 MG TAB PO SCH (21:04)
[2023-09-03] MEDS: HYDROcodone/Acetaminophen 7.5/325 mg Tablet PO PRN (21:05)
[2023-09-04] MEDS: Aspirin 81 mg Enteric Coated Tablet PO SCH (07:54)
[2023-09-04] MEDS: FLUoxetine HCl 20 MG CAP PO SCH (07:55)
[2023-09-04] MEDS: Polyethylene Glycol 3350 17 GM Packet PO SCH (07:56)
[2023-09-04] MEDS ORDERED: Epoetin (ESRD) 20,000 UNITS/ML MDV SC SCH (08:45)
[2023-09-04 09:13] LABS: Anion Gap 17 mmol/L (10-20); BUN (Urea Nitrogen) 37 mg/dL (8.4-25.7); Calc. Creatinine Clearance 15 mL/min (70-130); Calcium 8.3 mg/dL (7.8-10.44); Carbon Dioxide 26 mmol/L (23-31); Chloride 97 mmol/L (98-107); Estimated GFR 9; Glucose 93 mg/dL (80-115); Potassium 4.8 mmol/L (3.5-5.1); Sodium 135 mmol/L (136-145)
[2023-09-04] MEDS ORDERED: Polyvinyl Alcohol 1.4%/Povidone 0.6% Opth Drops EA EYE PRN (09:21)
[2023-09-04 10:59] LABS: #Basophils 0.04 10x3/uL (0.0-0.2); %Basophils 0.6 % (0.0-1.0); %Eosinophils 3.1 % (0.0-10.0); %Lymphocytes 23.7 % (21.0-51.0); %Monocytes 11.7 % (0.0-10.0); %Neutrophils 60.6 % (42.0-75.0); Hematocrit 29.3 % (42.0-52.0); Hemoglobin 9.5 g/dL (14.0-18.0); Mean Corpuscular HGB CONC 32.4 g/dL (32.0-36.0); Mean Corpuscular Hemoglobin 32.5 pg (27.0-31.0); Mean Corpuscular Volume 100.3 fL (78.0-98.0); Mean Platelet Volume 10.6 fL (7.4-10.4); Platelet Count 113 10x3/uL (130-400); RBC Distribution Width 12.7 % (11.5-14.5); Red Blood Cell (RBC) Count 2.92 mill/uL (4.70-6.10)
[2023-09-04] MEDS: Polyvinyl Alcohol 1.4%/Povidone 0.6% Opth Drops EA EYE PRN (11:05)
[2023-09-04] MEDS ORDERED: Calcium Acetate 667 MG CAP PO SCH ×2 (12:00)
[2023-09-04] MEDS: hydrALAZINE 25 MG TAB PO SCH (15:58)
[2023-09-04] MEDS ORDERED: EPINEPHRINE IH PRN (17:45)
[2023-09-04] MEDS: EPOETIN ALFA-EPBX (ESRD) 10,000 UNITS/ML VIAL SC SCH (18:26)
[2023-09-04] MEDS: Ipratropium/Albuterol 3 ML NEB NEB PRN (19:35)
[2023-09-04] MEDS: Carvedilol 6.25 MG TAB PO SCH (21:05)
[2023-09-05 04:21] LABS: #Basophils 0.03 10x3/uL (0.0-0.2); %Basophils 0.4 % (0.0-1.0); %Eosinophils 2.9 % (0.0-10.0); %Lymphocytes 21.8 % (21.0-51.0); %Monocytes 11.7 % (0.0-10.0); %Neutrophils 62.9 % (42.0-75.0); Hematocrit 28.3 % (42.0-52.0); Hemoglobin 9.3 g/dL (14.0-18.0); Mean Corpuscular HGB CONC 32.9 g/dL (32.0-36.0); Mean Corpuscular Hemoglobin 32.5 pg (27.0-31.0); Mean Platelet Volume 10.8 fL (7.4-10.4); Platelet Count 121 10x3/uL (130-400); RBC Distribution Width 12.6 % (11.5-14.5); Red Blood Cell (RBC) Count 2.86 mill/uL (4.70-6.10)
[2023-09-05 04:50] LABS: Anion Gap 18 mmol/L (10-20); BUN (Urea Nitrogen) 50 mg/dL (8.4-25.7); Calc. Creatinine Clearance 12 mL/min (70-130); Calcium 8.3 mg/dL (7.8-10.44); Carbon Dioxide 25 mmol/L (23-31); Chloride 95 mmol/L (98-107); Estimated GFR 7; Glucose 129 mg/dL (80-115); Potassium 5.2 mmol/L (3.5-5.1); Sodium 133 mmol/L (136-145)
[2023-09-05] MEDS: Acetaminophen 325 MG TAB PO PRN (08:11)
[2023-09-05] MEDS: Amlodipine 10 MG TAB PO SCH (08:13)
[2023-09-05] MEDS ORDERED: FLUoxetine HCl 20 MG CAP PO SCH (09:00)
[2023-09-05] MEDS ORDERED: Heparin 10,000 UNITS/ 10 ML VIAL ONE (12:59)
[2023-09-06] MEDS: hydrALAZINE 25 MG TAB PO SCH (09:17)
[2023-09-06] MEDS ORDERED: Ciprofloxacin 500 MG TAB PO SCH (20:00)
[2023-09-06] MEDS: Ciprofloxacin 500 MG TAB PO SCH (20:15)
[2023-09-07 04:29] LABS: #Basophils 0.03 10x3/uL (0.0-0.2); %Basophils 0.6 % (0.0-1.0); %Eosinophils 2.6 % (0.0-10.0); %Lymphocytes 26.8 % (21.0-51.0); %Neutrophils 57.6 % (42.0-75.0); Hematocrit 29.1 % (42.0-52.0); Hemoglobin 9.2 g/dL (14.0-18.0); Mean Corpuscular HGB CONC 31.6 g/dL (32.0-36.0); Mean Corpuscular Hemoglobin 30.9 pg (27.0-31.0); Mean Corpuscular Volume 97.7 fL (78.0-98.0); Platelet Count 144 10x3/uL (130-400); RBC Distribution Width 12.4 % (11.5-14.5); Red Blood Cell (RBC) Count 2.98 mill/uL (4.70-6.10)
[2023-09-07 05:01] LABS: Anion Gap 19 mmol/L (10-20); BUN (Urea Nitrogen) 38 mg/dL (8.4-25.7); Calc. Creatinine Clearance 18 mL/min (70-130); Calcium 8.2 mg/dL (7.8-10.44); Carbon Dioxide 25 mmol/L (23-31); Chloride 97 mmol/L (98-107); Estimated GFR 8; Glucose 91 mg/dL (80-115); Potassium 5.5 mmol/L (3.5-5.1); Sodium 135 mmol/L (136-145)
[2023-09-07] MEDS ORDERED: Heparin 10,000 UNITS/ 10 ML VIAL ONE (09:20)
[2023-09-07 09:44] VITALS: BMI 37.8
[2023-09-07] MEDS ORDERED: Bisacodyl 10 MG SUPP PR PRN (10:14)
[2023-09-07] MEDS: Gabapentin 100 MG CAP PO SCH (20:43)
[2023-09-08] MEDS: Cholecalciferol 1,000 UNITS (25 MCG) TAB PO SCH (08:08)
[2023-09-08] MEDS: Clopidogrel Bisulfate 75 MG TAB PO SCH (08:08)
[2023-09-09 05:07] LABS: Albumin 2.7 g/dL (3.4-4.8); Anion Gap 18 mmol/L (10-20); BUN (Urea Nitrogen) 33 mg/dL (8.4-25.7); Calc. Creatinine Clearance 20 mL/min (70-130); Calcium 8.2 mg/dL (7.8-10.44); Carbon Dioxide 22 mmol/L (23-31); Chloride 101 mmol/L (98-107); Estimated GFR 10; Glucose 89 mg/dL (80-115); Phosphorus 5.4 mg/dL (2.3-4.7); Potassium 5.3 mmol/L (3.5-5.1); Sodium 136 mmol/L (136-145)
[2023-09-09] MEDS: LOKELMA 10 GM PACKET PO SCH (09:59)
[2023-09-09] MEDS: VELPHORO 500 MG PO SCH (17:51)
[2023-09-10 09:56] VITALS: TEMP 98.1
[2023-09-10] MEDS: Sevelamer Carbonate 800 MG TAB PO SCH (11:32)
[2023-09-10 11:33] VITALS: BP 160/69
== END 2023-09-10 15:36 | DRG 640 ==
LOC: ERS 06:32 → ERHOLD 08:22 → 2NO 13:53
PROVIDERS: ADMIT Family Medicine; ATTEND Internal Medicine
PROC: 5A1D70Z Performance of Urinary Filtration, Intermittent, Less than 6 Hours Per Day (ICD-10-PCS; principal; 2023-09-03)
PROC: 4A00X4Z Measurement of Central Nervous Electrical Activity, External Approach (ICD-10-PCS; 2023-09-04)
PROC: 3E033XZ Introduction of Vasopressor into Peripheral Vein, Percutaneous Approach (ICD-10-PCS; 2023-09-04)
DX: E87.5 Hyperkalemia (principal); N18.6 End stage renal disease; I12.0 Hypertensive chronic kidney disease with stage 5 chronic kidney disease or end stage renal disease; K59.00 Constipation, unspecified; S92.215A Nondisplaced fracture of cuboid bone of left foot, initial encounter for closed fracture; K59.03 Drug induced constipation; T40.2X5A Adverse effect of other opioids, initial encounter; D63.1 Anemia in chronic kidney disease; E11.22 Type 2 diabetes mellitus with diabetic chronic kidney disease; F39 Unspecified mood [affective] disorder; G40.909 Epilepsy, unspecified, not intractable, without status epilepticus; E66.9 Obesity, unspecified; Z99.2 Dependence on renal dialysis; Z68.37 Body mass index [BMI] 37.0-37.9, adult; Z71.3 Dietary counseling and surveillance; R53.81 Other malaise; G93.89 Other specified disorders of brain; Z89.511 Acquired absence of right leg below knee; E83.39 Other disorders of phosphorus metabolism; L08.9 Local infection of the skin and subcutaneous tissue, unspecified
CPT/HCPCS: 36415; 36416; 71045; 74177; 80048; 80053; 80069; 83605; 83690; 84146; 84484; 85025; 90935; 93005; 94640; 94760; 95700; 95711; 95819; 96374; 96375; 97139; G0257; J0613; J1644; J1815; J2270; J7620; Q5105; Q9967

== ENCOUNTER 2023-10-07 09:59 | Inpatient (IN) | payer MEDICARE, OTHER ==
[~2023-10-07 09:59] MED LIST changes: -EPINEPHrine 0.3 MG in Ophthalmic Irrigation Solution 500 ML IRR SCH; -Famotidine/PF 20 mg/2ml Vial ONE; -Fentanyl 100 MCG/2 ML VIAL ONE; +Iopamidol-370 76% 500 ML MDV (1 ML CHARGE) ONE; -Midazolam HCl 2 mg/2 ml Vial ONE
[2023-10-07 10:49] LABS: Acetaminophen Less than 10 mcg/mL (10.0-30.0); Alcohol Less than 10.0 mg/dL (Less than 10); Lipase 14 U/L (8-78); Magnesium 2.5 mg/dL (1.6-2.6); Salicylate Less than 8.0 mg/dL (15.0-30.0)
[2023-10-07 10:50] LABS: ALT (SGPT) 7 U/L (8-55); AST (SGOT) 16 U/L (5-34); Albumin 3.3 g/dL (3.4-4.8); Alkaline Phosphatase 155 U/L (40-110); Anion Gap 20 mmol/L (10-20); BUN (Urea Nitrogen) 70 mg/dL (8.4-25.7); Bilirubin, Total 0.3 mg/dL (0.2-1.2); Calc. Creatinine Clearance 0 mL/min (70-130); Calcium 8.1 mg/dL (7.8-10.44); Carbon Dioxide 23 mmol/L (23-31); Chloride 100 mmol/L (98-107); Estimated GFR 5; Globulin 2.8 g/dL (2.4-3.5); Glucose 155 mg/dL (80-115); Potassium 4.7 mmol/L (3.5-5.1); Protein, Total 6.1 g/dL (5.8-8.1); Sodium 138 mmol/L (136-145)
[2023-10-07 10:52] LABS: Troponin I 0.032 ng/mL (< 0.028)
[2023-10-07 11:07] LABS: Ovalocytes SLIGHT = 2-5 cells HPF (0-1); Platelet Adequacy Comment Platelets Decreased; Polychromasia SLIGHT = 2-3 cells HPF (0-2)
[2023-10-07 11:08] LABS: #Basophils 0.03 10x3/uL (0.0-0.2); %Basophils 0.5 % (0.0-1.0); %Eosinophils 3.1 % (0.0-10.0); %Lymphocytes 26.2 % (21.0-51.0); %Monocytes 9.3 % (0.0-10.0); %Neutrophils 60.6 % (42.0-75.0); Hematocrit 30.8 % (42.0-52.0); Hemoglobin 10.3 g/dL (14.0-18.0); Mean Corpuscular HGB CONC 33.4 g/dL (32.0-36.0); Mean Corpuscular Hemoglobin 32.1 pg (27.0-31.0); Mean Platelet Volume 10.4 fL (7.4-10.4); Platelet Count 94 10x3/uL (130-400); RBC Distribution Width 12.4 % (11.5-14.5); Red Blood Cell (RBC) Count 3.21 mill/uL (4.70-6.10)
[2023-10-07] MEDS ORDERED: Ondansetron ODT 4 MG TAB PO PRN (11:56)
[2023-10-07] MEDS ORDERED: Ondansetron PF 4 MG/2 ML Vial IVP PRN (11:56)
[2023-10-07] MEDS ORDERED: Dextrose 5% in Water 1,000 ML IV PRN (12:01)
[2023-10-07] MEDS ORDERED: Dextrose 50% Abboject 50 ML SYRINGE SLOW IVP PRN (12:01)
[2023-10-07] MEDS ORDERED: Glucagon 1 MG/ML KIT IM PRN (12:01)
[2023-10-07] MEDS ORDERED: HumaLOG 300 UNITS/3 ML VIAL SC PRN (12:01)
[2023-10-07 14:05] VITALS: BMI 37.4
[2023-10-07] MEDS: Heparin 5,000 UNITS/ML VIAL SC SCH (15:57)
[2023-10-07 16:39] LABS: Troponin I 0.031 ng/mL (< 0.028)
[2023-10-07] MEDS: Atorvastatin Calcium 40 MG TAB PO SCH (20:24)
[2023-10-08] MEDS: Polyethylene Glycol 3350 17 GM Packet PO PRN (00:27)
[2023-10-08 05:20] LABS: #Basophils 0.03 10x3/uL (0.0-0.2); %Basophils 0.4 % (0.0-1.0); %Eosinophils 3.3 % (0.0-10.0); %Lymphocytes 27.4 % (21.0-51.0); %Monocytes 8.4 % (0.0-10.0); %Neutrophils 60.2 % (42.0-75.0); Hematocrit 30.3 % (42.0-52.0); Hemoglobin 10.3 g/dL (14.0-18.0); Mean Corpuscular Hemoglobin 31.8 pg (27.0-31.0); Mean Corpuscular Volume 93.5 fL (78.0-98.0); Mean Platelet Volume 10.2 fL (7.4-10.4); Platelet Count 93 10x3/uL (130-400); RBC Distribution Width 12.5 % (11.5-14.5); Red Blood Cell (RBC) Count 3.24 mill/uL (4.70-6.10)
[2023-10-08 05:30] LABS: ALT (SGPT) 13 U/L (8-55); AST (SGOT) 15 U/L (5-34); Albumin 3.1 g/dL (3.4-4.8); Alkaline Phosphatase 105 U/L (40-110); Anion Gap 20 mmol/L (10-20); BUN (Urea Nitrogen) 78 mg/dL (8.4-25.7); Bilirubin, Total 0.3 mg/dL (0.2-1.2); Calc. Creatinine Clearance 10 mL/min (70-130); Calcium 7.9 mg/dL (7.8-10.44); Carbon Dioxide 20 mmol/L (23-31); Cardiac Risk 4.3 (Less than 4.5); Chloride 100 mmol/L (98-107); Cholesterol 129 mg/dl (< 200 Desired); Estimated GFR 5; Glucose 102 mg/dL (80-115); HDL Cholesterol 30 mg/dL (>60 Neg Risk); LDL Cholesterol, Calculated 81 mg/dL; Potassium 4.6 mmol/L (3.5-5.1); Protein, Total 6.1 g/dL (5.8-8.1); Sodium 135 mmol/L (136-145); Triglycerides 91 mg/dL (Less than 150)
[2023-10-08] MEDS ORDERED: Epoetin (ESRD) 20,000 UNITS/ML MDV SC SCH (08:00)
[2023-10-08] MEDS: levETIRAcetam 500 MG TAB PO SCH ×2 (08:12→18:19)
[2023-10-08] MEDS: Pantoprazole DR 40 MG TAB PO SCH (08:12)
[2023-10-08] MEDS: Aspirin 81 mg Enteric Coated Tablet PO SCH (08:12)
[2023-10-08] MEDS: FLUoxetine HCl 20 MG CAP PO SCH (08:12)
[2023-10-08] MEDS: NIFEdipine XL 30 MG ER.TAB PO SCH (10:15)
[2023-10-08] MEDS: Acetaminophen 325 MG TAB PO PRN (10:15)
[2023-10-08] MEDS: Carvedilol 3.125 MG TAB PO SCH (10:16)
[2023-10-08] MEDS: Carvedilol 6.25 MG TAB PO SCH (10:20)
[2023-10-08] MEDS: EPOETIN ALFA-EPBX (ESRD) 10,000 UNITS/ML VIAL SC SCH (13:33)
[2023-10-08] MEDS: hydrALAZINE 25 MG TAB PO SCH (15:13)
[2023-10-08] MEDS ORDERED: Carvedilol 6.25 MG TAB PO SCH (21:00)
[2023-10-09 06:10] LABS: #Basophils 0.03 10x3/uL (0.0-0.2); %Basophils 0.5 % (0.0-1.0); %Eosinophils 2.9 % (0.0-10.0); %Monocytes 11.6 % (0.0-10.0); %Neutrophils 58.7 % (42.0-75.0); Hematocrit 31.2 % (42.0-52.0); Hemoglobin 10.5 g/dL (14.0-18.0); Mean Corpuscular HGB CONC 33.7 g/dL (32.0-36.0); Mean Corpuscular Hemoglobin 31.1 pg (27.0-31.0); Mean Corpuscular Volume 92.3 fL (78.0-98.0); Mean Platelet Volume 10.2 fL (7.4-10.4); Platelet Count 91 10x3/uL (130-400); RBC Distribution Width 12.3 % (11.5-14.5); Red Blood Cell (RBC) Count 3.38 mill/uL (4.70-6.10)
[2023-10-09 06:31] LABS: Anion Gap 16 mmol/L (10-20); BUN (Urea Nitrogen) 32 mg/dL (8.4-25.7); Calc. Creatinine Clearance 18 mL/min (70-130); Calcium 8.1 mg/dL (7.8-10.44); Carbon Dioxide 25 mmol/L (23-31); Chloride 98 mmol/L (98-107); Estimated GFR 9; Glucose 97 mg/dL (80-115); Magnesium 2.1 mg/dL (1.6-2.6); Sodium 135 mmol/L (136-145)
[2023-10-09] MEDS: NIFEdipine XL 30 MG ER.TAB PO SCH ×2 (08:19→09:19)
[2023-10-09] MEDS: Carvedilol 3.125 MG TAB PO SCH (09:20)
[2023-10-09] MEDS: HumaLOG 300 UNITS/3 ML VIAL SC PRN (13:08)
[2023-10-12 04:53] LABS: #Basophils 0.04 10x3/uL (0.0-0.2); %Basophils 0.6 % (0.0-1.0); %Eosinophils 2.8 % (0.0-10.0); %Lymphocytes 30.5 % (21.0-51.0); %Monocytes 9.3 % (0.0-10.0); %Neutrophils 56.4 % (42.0-75.0); Hematocrit 30.8 % (42.0-52.0); Hemoglobin 10.4 g/dL (14.0-18.0); Mean Corpuscular HGB CONC 33.8 g/dL (32.0-36.0); Mean Corpuscular Hemoglobin 31.4 pg (27.0-31.0); Mean Corpuscular Volume 93.1 fL (78.0-98.0); Mean Platelet Volume 9.9 fL (7.4-10.4); Platelet Count 127 10x3/uL (130-400); RBC Distribution Width 12.1 % (11.5-14.5); Red Blood Cell (RBC) Count 3.31 mill/uL (4.70-6.10)
[2023-10-12 05:27] LABS: Anion Gap 14 mmol/L (10-20); BUN (Urea Nitrogen) 31 mg/dL (8.4-25.7); Calc. Creatinine Clearance 16 mL/min (70-130); Calcium 8.2 mg/dL (7.8-10.44); Carbon Dioxide 27 mmol/L (23-31); Chloride 102 mmol/L (98-107); Estimated GFR 8; Glucose 109 mg/dL (80-115); Potassium 4.1 mmol/L (3.5-5.1); Sodium 139 mmol/L (136-145)
[2023-10-12 15:20] VITALS: BP 153/80
[2023-10-12 15:50] VITALS: TEMP 97.8
[2023-10-12] MEDS ORDERED: levETIRAcetam 500 MG TAB PO SCH (21:00)
== END 2023-10-12 21:39 | DRG 70 ==
LOC: ERS 09:59 → 2SE 12:31 → OBSVTOIN 10-09 10:03
PROVIDERS: ADMIT Internal Medicine; ATTEND Internal Medicine
PROC: 4A00X4Z Measurement of Central Nervous Electrical Activity, External Approach (ICD-10-PCS; principal; 2023-10-07)
PROC: 5A1D70Z Performance of Urinary Filtration, Intermittent, Less than 6 Hours Per Day (ICD-10-PCS; 2023-10-12)
DX: G93.41 Metabolic encephalopathy (principal); N18.6 End stage renal disease; I12.0 Hypertensive chronic kidney disease with stage 5 chronic kidney disease or end stage renal disease; I44.1 Atrioventricular block, second degree; E87.70 Fluid overload, unspecified; D63.1 Anemia in chronic kidney disease; E11.22 Type 2 diabetes mellitus with diabetic chronic kidney disease; E11.51 Type 2 diabetes mellitus with diabetic peripheral angiopathy without gangrene; E78.5 Hyperlipidemia, unspecified; G40.909 Epilepsy, unspecified, not intractable, without status epilepticus; F32.A Depression, unspecified; E66.9 Obesity, unspecified; Z68.37 Body mass index [BMI] 37.0-37.9, adult; Z99.2 Dependence on renal dialysis; Z79.899 Other long term (current) drug therapy; Z79.82 Long term (current) use of aspirin; Z88.0 Allergy status to penicillin; Z88.1 Allergy status to other antibiotic agents; Z86.73 Personal history of transient ischemic attack (TIA), and cerebral infarction without residual deficits
CPT/HCPCS: 36415; 36416; 70450; 70551; 71045; 74177; 76705; 80048; 80053; 80061; 80307; 82140; 83605; 83690; 83735; 84484; 85025; 87040; 93005; 93010; 95816; 95819; G0378; J1815; Q5105; Q9967

== ENCOUNTER 2023-11-05 07:06 | Inpatient (IN) | payer OTHER ==
[2023-11-05 08:06] LABS: Hematocrit 36.2 % (42.0-52.0); Hemoglobin 12.4 g/dL (14.0-18.0); Mean Corpuscular HGB CONC 34.3 g/dL (32.0-36.0); Mean Corpuscular Hemoglobin 31.7 pg (27.0-31.0); Mean Corpuscular Volume 92.6 fL (78.0-98.0); Mean Platelet Volume 10.8 fL (7.4-10.4); Platelet Count 120 10x3/uL (130-400); RBC Distribution Width 12.4 % (11.5-14.5); Red Blood Cell (RBC) Count 3.91 mill/uL (4.70-6.10)
[2023-11-05 08:31] LABS: ALT (SGPT) 11 U/L (8-55); AST (SGOT) 13 U/L (5-34); Albumin 3.5 g/dL (3.4-4.8); Alkaline Phosphatase 131 U/L (40-110); Anion Gap 15 mmol/L (10-20); BUN (Urea Nitrogen) 49 mg/dL (8.4-25.7); Bilirubin, Total 0.4 mg/dL (0.2-1.2); Calc. Creatinine Clearance 0 mL/min (70-130); Carbon Dioxide 21 mmol/L (23-31); Chloride 103 mmol/L (98-107); Estimated GFR 7; Globulin 2.9 g/dL (2.4-3.5); Glucose 178 mg/dL (80-115); Protein, Total 6.4 g/dL (5.8-8.1); Sodium 135 mmol/L (136-145)
[2023-11-05] MEDS ORDERED: Heparin 10,000 UNITS/ 10 ML VIAL ONE (08:40)
[2023-11-05 08:46] LABS: #Basophils Less than 0.03 10x3/uL (0.0-0.2); %Basophils 0.2 % (0.0-1.0); %Eosinophils 2.1 % (0.0-10.0); %Lymphocytes 20.5 % (21.0-51.0); %Monocytes 5.4 % (0.0-10.0); %Neutrophils 71.3 % (42.0-75.0)
[2023-11-05] MEDS ORDERED: Dextrose 5% in Water 1,000 ML IV PRN (10:06)
[2023-11-05] MEDS ORDERED: Dextrose 50% Abboject 50 ML SYRINGE SLOW IVP PRN (10:06)
[2023-11-05] MEDS ORDERED: Ondansetron PF 4 MG/2 ML Vial IVP PRN (10:06)
[2023-11-05] MEDS ORDERED: Glucagon 1 MG/ML KIT IM PRN (10:06)
[2023-11-05 12:25] LABS: Troponin I 0.023 ng/mL (< 0.028)
[2023-11-05 12:36] VITALS: BMI 34.7
[2023-11-05] MEDS: Heparin 5,000 UNITS/ML VIAL SC SCH (14:43)
[2023-11-05 17:03] LABS: Troponin I 0.029 ng/mL (< 0.028)
[2023-11-05 20:37] LABS: Magnesium 2.9 mg/dL (1.6-2.6)
[2023-11-05] MEDS: hydrALAZINE 25 MG TAB PO SCH (20:37)
[2023-11-05] MEDS: Atorvastatin Calcium 40 MG TAB PO SCH (20:37)
[2023-11-05] MEDS: NIFEdipine XL 30 MG ER.TAB PO SCH (20:37)
[2023-11-05] MEDS: Senokot S 8.6-50 MG TAB PO PRN (20:37)
[2023-11-05] MEDS: Acetaminophen 325 MG TAB PO PRN (20:38)
[2023-11-05] MEDS: levETIRAcetam 500 MG TAB PO SCH (20:38)
[2023-11-06 04:24] LABS: #Basophils 0.04 10x3/uL (0.0-0.2); %Basophils 0.5 % (0.0-1.0); %Eosinophils 2.1 % (0.0-10.0); %Lymphocytes 26.9 % (21.0-51.0); %Monocytes 6.7 % (0.0-10.0); %Neutrophils 63.5 % (42.0-75.0); Hematocrit 31.3 % (42.0-52.0); Mean Corpuscular HGB CONC 35.1 g/dL (32.0-36.0); Mean Corpuscular Hemoglobin 31.8 pg (27.0-31.0); Mean Corpuscular Volume 90.5 fL (78.0-98.0); Mean Platelet Volume 9.9 fL (7.4-10.4); Platelet Count 113 10x3/uL (130-400); RBC Distribution Width 12.4 % (11.5-14.5); Red Blood Cell (RBC) Count 3.46 mill/uL (4.70-6.10)
[2023-11-06 04:37] LABS: ALT (SGPT) 11 U/L (8-55); AST (SGOT) 15 U/L (5-34); Albumin 3.2 g/dL (3.4-4.8); Alkaline Phosphatase 128 U/L (40-110); Anion Gap 17 mmol/L (10-20); BUN (Urea Nitrogen) 49 mg/dL (8.4-25.7); Bilirubin, Total 0.4 mg/dL (0.2-1.2); Calc. Creatinine Clearance 13 mL/min (70-130); Calcium 8.7 mg/dL (7.8-10.44); Carbon Dioxide 25 mmol/L (23-31); Chloride 101 mmol/L (98-107); Estimated GFR 7; Globulin 2.6 g/dL (2.4-3.5); Glucose 143 mg/dL (80-115); Potassium 3.8 mmol/L (3.5-5.1); Protein, Total 5.8 g/dL (5.8-8.1); Sodium 139 mmol/L (136-145)
[2023-11-06] MEDS: Insulin Regular, Human 100 UNIT/ML 10 ML VIAL SC PRN (06:19)
[2023-11-06] MEDS: Pantoprazole DR 40 MG TAB PO SCH (08:56)
[2023-11-06] MEDS: FLUoxetine HCl 20 MG CAP PO SCH (08:56)
[2023-11-06] MEDS: Aspirin 81 mg Enteric Coated Tablet PO SCH (08:56)
[2023-11-06] MEDS ORDERED: Polyvinyl Alcohol 1.4%/Povidone 0.6% Opth Drops EA EYE SCH (14:15)
[2023-11-06] MEDS: Polyvinyl Alcohol 1.4%/Povidone 0.6% Opth Drops EA EYE SCH ×2 (14:34→21:59)
[2023-11-06] MEDS: QUEtiapine 25 MG TAB PO SCH (21:45)
[2023-11-07 05:20] LABS: Anion Gap 14 mmol/L (10-20); BUN (Urea Nitrogen) 27 mg/dL (8.4-25.7); Calc. Creatinine Clearance 19 mL/min (70-130); Calcium 8.5 mg/dL (7.8-10.44); Carbon Dioxide 23 mmol/L (23-31); Chloride 103 mmol/L (98-107); Estimated GFR 11; Glucose 155 mg/dL (80-115); Potassium 3.4 mmol/L (3.5-5.1); Sodium 137 mmol/L (136-145)
[2023-11-07 05:27] LABS: #Basophils 0.04 10x3/uL (0.0-0.2); %Basophils 0.6 % (0.0-1.0); %Eosinophils 2.4 % (0.0-10.0); %Lymphocytes 36.6 % (21.0-51.0); %Monocytes 8.1 % (0.0-10.0); %Neutrophils 51.8 % (42.0-75.0); Hematocrit 33.8 % (42.0-52.0); Hemoglobin 11.1 g/dL (14.0-18.0); Mean Corpuscular HGB CONC 32.8 g/dL (32.0-36.0); Mean Corpuscular Hemoglobin 32.2 pg (27.0-31.0); Mean Platelet Volume 10.2 fL (7.4-10.4); Platelet Count 105 10x3/uL (130-400); RBC Distribution Width 12.4 % (11.5-14.5); Red Blood Cell (RBC) Count 3.45 mill/uL (4.70-6.10)
[2023-11-07] MEDS: levETIRAcetam 500 MG TAB PO SCH (10:01)
[2023-11-07] MEDS: Morphine 2 MG/ML VIAL SLOW IVP SCH (11:03)
[2023-11-07] MEDS: HYDROcodone/Acetaminophen 5/325 mg Tablet PO PRN (14:34)
[2023-11-07] MEDS: Insulin Glargine 30 UNITS/0.3 ML VIAL SC SCH (21:11)
[2023-11-08 05:35] LABS: Potassium 3.7 mmol/L (3.5-5.1)
[2023-11-08 11:19] VITALS: TEMP 97.4
[2023-11-08 14:01] VITALS: BP 156/69
== END 2023-11-08 14:50 | DRG 308 ==
LOC: ERS 07:06 → 2NO 11:47 → OBSVTOIN 11-07 10:17
PROVIDERS: ADMIT Hospitalist; ATTEND Internal Medicine
DX: I44.1 Atrioventricular block, second degree (principal); G93.41 Metabolic encephalopathy; N18.6 End stage renal disease; I12.0 Hypertensive chronic kidney disease with stage 5 chronic kidney disease or end stage renal disease; E11.22 Type 2 diabetes mellitus with diabetic chronic kidney disease; G40.909 Epilepsy, unspecified, not intractable, without status epilepticus; E11.51 Type 2 diabetes mellitus with diabetic peripheral angiopathy without gangrene; E11.65 Type 2 diabetes mellitus with hyperglycemia; Z88.0 Allergy status to penicillin; Z88.8 Allergy status to other drugs, medicaments and biological substances; Z79.899 Other long term (current) drug therapy; Z79.82 Long term (current) use of aspirin; Z79.4 Long term (current) use of insulin; Z90.49 Acquired absence of other specified parts of digestive tract; Z99.2 Dependence on renal dialysis; F32.A Depression, unspecified
CPT/HCPCS: 36415; 36416; 70450; 71045; 80048; 80053; 83735; 84132; 84484; 85025; 93005; 93010; 96372; G0378; J1644; J1815; J2272

== ENCOUNTER 2024-04-18 11:46 | Inpatient (IN) | payer MEDICARE, OTHER ==
[2024-04-18 13:28] LABS: #Basophils 0.04 10x3/uL (0.0-0.2); %Basophils 0.6 % (0.0-1.0); %Eosinophils 3.1 % (0.0-10.0); %Lymphocytes 34.5 % (21.0-51.0); %Monocytes 8.9 % (0.0-10.0); %Neutrophils 52.3 % (42.0-75.0); Hematocrit 28.6 % (42.0-52.0); Hemoglobin 9.6 g/dL (14.0-18.0); Mean Corpuscular HGB CONC 33.6 g/dL (32.0-36.0); Mean Corpuscular Hemoglobin 29.6 pg (27.0-31.0); Mean Corpuscular Volume 88.3 fL (78.0-98.0); Mean Platelet Volume 9.9 fL (7.4-10.4); Platelet Count 145 10x3/uL (130-400); RBC Distribution Width 14.8 % (11.5-14.5); Red Blood Cell (RBC) Count 3.24 mill/uL (4.70-6.10)
[2024-04-18 15:09] LABS: ALT (SGPT) 9 U/L (8-55); AST (SGOT) 13 U/L (5-34); Albumin 2.6 g/dL (3.4-4.8); Alkaline Phosphatase 140 U/L (40-110); Anion Gap 13 mmol/L (10-20); BUN (Urea Nitrogen) 52 mg/dL (8.4-25.7); Bilirubin, Total 0.3 mg/dL (0.2-1.2); Calc. Creatinine Clearance 0 mL/min (70-130); Calcium 8.2 mg/dL (7.8-10.44); Carbon Dioxide 25 mmol/L (23-31); Chloride 101 mmol/L (98-107); Estimated GFR 9; Globulin 3.2 g/dL (2.4-3.5); Glucose 208 mg/dL (80-115); Potassium 3.1 mmol/L (3.5-5.1); Protein, Total 5.8 g/dL (5.8-8.1); Sodium 136 mmol/L (136-145)
[2024-04-18] MEDS ORDERED: Polyethylene Glycol 3350 17 GM Packet PO PRN (17:28)
[2024-04-18] MEDS ORDERED: Glucagon 1 MG/ML KIT IM PRN (17:30)
[2024-04-18] MEDS ORDERED: Acetaminophen 325 MG TAB PO PRN (17:30)
[2024-04-18] MEDS ORDERED: Acetaminophen 650 MG Suppository PR PRN (17:30)
[2024-04-18] MEDS ORDERED: Dextrose 5% in Water 1,000 ML IV PRN (17:30)
[2024-04-18] MEDS ORDERED: Insulin Lispro 100 UNIT/ML 10 ML VIAL SC PRN (17:30)
[2024-04-18] MEDS ORDERED: Dextrose 50% Abboject 50 ML SYRINGE SLOW IVP PRN (17:30)
[2024-04-18] MEDS: Heparin 5,000 UNITS/ML VIAL SC SCH (20:00)
[2024-04-18] MEDS: NIFEdipine XL 30 MG ER.TAB PO SCH (20:00)
[2024-04-18] MEDS: Atorvastatin Calcium 40 MG TAB PO SCH (20:00)
[2024-04-18] MEDS: levETIRAcetam 500 MG TAB PO SCH (20:00)
[2024-04-18] MEDS: hydrALAZINE 25 MG TAB PO SCH (20:00)
[2024-04-18] MEDS: Cefepime 1 GM in Sodium Chloride 0.9% 100 ML IVPB SCH (20:08)
[2024-04-18] MEDS ORDERED: Vancomycin 1 GM in Premix 1 BAG IVPB SCH (21:00)
[2024-04-19 05:20] LABS: #Basophils 0.03 10x3/uL (0.0-0.2); %Basophils 0.5 % (0.0-1.0); %Eosinophils 3.7 % (0.0-10.0); %Lymphocytes 30.4 % (21.0-51.0); %Neutrophils 56.1 % (42.0-75.0); Hematocrit 29.3 % (42.0-52.0); Hemoglobin 9.5 g/dL (14.0-18.0); Mean Corpuscular HGB CONC 32.4 g/dL (32.0-36.0); Mean Corpuscular Hemoglobin 29.1 pg (27.0-31.0); Mean Corpuscular Volume 89.9 fL (78.0-98.0); Mean Platelet Volume 9.3 fL (7.4-10.4); Platelet Count 139 10x3/uL (130-400); RBC Distribution Width 14.9 % (11.5-14.5); Red Blood Cell (RBC) Count 3.26 mill/uL (4.70-6.10)
[2024-04-19 05:32] VITALS: BMI 29.7
[2024-04-19 05:35] LABS: ALT (SGPT) 9 U/L (8-55); AST (SGOT) 13 U/L (5-34); Albumin 2.5 g/dL (3.4-4.8); Alkaline Phosphatase 123 U/L (40-110); Anion Gap 14 mmol/L (10-20); BUN (Urea Nitrogen) 57 mg/dL (8.4-25.7); Bilirubin, Total 0.3 mg/dL (0.2-1.2); Calc. Creatinine Clearance 15 mL/min (70-130); Calcium 8.3 mg/dL (7.8-10.44); Carbon Dioxide 23 mmol/L (23-31); Chloride 102 mmol/L (98-107); Estimated GFR 9; Globulin 3.3 g/dL (2.4-3.5); Glucose 156 mg/dL (80-115); Potassium 3.2 mmol/L (3.5-5.1); Protein, Total 5.8 g/dL (5.8-8.1); Sodium 136 mmol/L (136-145)
[2024-04-19] MEDS ORDERED: Vancomycin Diaylsis Sliding Scale (Wt 71-99) FS SCH (05:45)
[2024-04-19 08:58] LABS: HBSAB Concentration 126.53 mIU/mL; HBsAg Index 0.44 S/CO (0-0.99); Hep B Core Total Ab NONREACTIVE (NonReactive); Hep B Core Total Index 0.38 S/CO (0-0.79); Hep B Surf AB REACTIVE (NonReactive); Hep B Surf Ag NONREACTIVE S/CO (NonReactive); Hep C IgG Ab NONREACTIVE S/CO (NonReactive); Hep C Index 0.17 S/CO (0-0.79)
[2024-04-19] MEDS: Aspirin 81 mg Enteric Coated Tablet PO SCH (09:14)
[2024-04-19] MEDS: FLUoxetine HCl 20 MG CAP PO SCH (09:14)
[2024-04-19] MEDS: Sevelamer Carbonate 800 MG TAB PO SCH (09:15)
[2024-04-19] MEDS: Pantoprazole DR 40 MG TAB PO SCH (09:16)
[2024-04-19 12:52] VITALS: BMI 29.7
[2024-04-19] MEDS: Insulin Lispro 100 UNIT/ML 10 ML VIAL SC PRN (13:16)
[2024-04-19] MEDS: Potassium Chloride 20 MEQ TAB PO SCH (20:50)
[2024-04-19] MEDS ORDERED: Vancomycin HCl 750 MG in Sodium Chloride 0.9% 250 ML 250 ML IVPB SCH (22:00)
[2024-04-19] MEDS: Vancomycin 1 GM in Premix 1 BAG IVPB SCH (23:49)
[2024-04-20] MEDS: Cefepime 1 GM VIAL ONE (04:56)
[2024-04-20 08:21] LABS: Albumin 2.8 g/dL (3.4-4.8); Anion Gap 18 mmol/L (10-20); BUN (Urea Nitrogen) 57 mg/dL (8.4-25.7); BUN/Creatinine Ratio 8.27; Calc. Creatinine Clearance 15 mL/min (70-130); Calcium 8.3 mg/dL (7.8-10.44); Carbon Dioxide 21 mmol/L (23-31); Chloride 102 mmol/L (98-107); Estimated GFR 8; Glucose 155 mg/dL (80-115); Phosphorus 2.4 mg/dL (2.3-4.7); Potassium 3.5 mmol/L (3.5-5.1); Sodium 137 mmol/L (136-145)
[2024-04-20] MEDS: metroNIDAZOLE 250 MG TAB PO SCH (21:14)
[2024-04-21] MEDS: LevoFLOXacin 250 MG TAB PO SCH (05:02)
[2024-04-21 08:45] LABS: Vancomycin, Trough 24.4 ug/mL
[2024-04-21 09:58] LABS: Albumin 2.7 g/dL (3.4-4.8); Anion Gap 14 mmol/L (10-20); BUN (Urea Nitrogen) 36 mg/dL (8.4-25.7); BUN/Creatinine Ratio 6.37; Calc. Creatinine Clearance 18 mL/min (70-130); Calcium 8.7 mg/dL (7.8-10.44); Carbon Dioxide 24 mmol/L (23-31); Chloride 102 mmol/L (98-107); Estimated GFR 11; Glucose 139 mg/dL (80-115); Potassium 3.8 mmol/L (3.5-5.1); Sodium 136 mmol/L (136-145)
[2024-04-21] MEDS: Vancomycin 250 MG in Sodium Chloride 0.9% 100 ML IVPB SCH (18:31)
[2024-04-22 05:31] LABS: #Basophils 0.04 10x3/uL (0.0-0.2); %Basophils 0.6 % (0.0-1.0); %Eosinophils 3.4 % (0.0-10.0); %Monocytes 9.3 % (0.0-10.0); %Neutrophils 49.2 % (42.0-75.0); Hematocrit 29.6 % (42.0-52.0); Hemoglobin 9.5 g/dL (14.0-18.0); Mean Corpuscular HGB CONC 32.1 g/dL (32.0-36.0); Mean Corpuscular Hemoglobin 29.2 pg (27.0-31.0); Mean Corpuscular Volume 91.1 fL (78.0-98.0); Mean Platelet Volume 9.3 fL (7.4-10.4); Platelet Count 149 10x3/uL (130-400); RBC Distribution Width 15.8 % (11.5-14.5); Red Blood Cell (RBC) Count 3.25 mill/uL (4.70-6.10)
[2024-04-22 05:43] LABS: Anion Gap 13 mmol/L (10-20); BUN (Urea Nitrogen) 18 mg/dL (8.4-25.7); Calc. Creatinine Clearance 26 mL/min (70-130); Calcium 8.3 mg/dL (7.8-10.44); Carbon Dioxide 25 mmol/L (23-31); Chloride 102 mmol/L (98-107); Estimated GFR 17; Glucose 105 mg/dL (80-115); Potassium 3.7 mmol/L (3.5-5.1); Sodium 136 mmol/L (136-145)
[2024-04-22 05:44] LABS: CRP,High Sensitivity (Inhouse) 1.32 mg/dL (< or = 0.5)
[2024-04-22 11:03] LABS: Iron 74 ug/dL (65-175); Iron Binding Capacity, Total 153 mcg/dL (261-462)
[2024-04-22] MEDS: Artificial Tear Ophth Sol 15 ML BOT EA EYE PRN (15:36)
[2024-04-23 05:01] LABS: #Basophils 0.03 10x3/uL (0.0-0.2); %Basophils 0.5 % (0.0-1.0); %Eosinophils 3.3 % (0.0-10.0); %Lymphocytes 42.6 % (21.0-51.0); %Monocytes 10.3 % (0.0-10.0); %Neutrophils 42.8 % (42.0-75.0); Hematocrit 27.5 % (42.0-52.0); Hemoglobin 8.9 g/dL (14.0-18.0); Mean Corpuscular HGB CONC 32.4 g/dL (32.0-36.0); Mean Corpuscular Hemoglobin 29.5 pg (27.0-31.0); Mean Corpuscular Volume 91.1 fL (78.0-98.0); Mean Platelet Volume 9.1 fL (7.4-10.4); Platelet Count 138 10x3/uL (130-400); RBC Distribution Width 15.7 % (11.5-14.5); Red Blood Cell (RBC) Count 3.02 mill/uL (4.70-6.10)
[2024-04-23 05:23] LABS: Anion Gap 15 mmol/L (10-20); BUN (Urea Nitrogen) 27 mg/dL (8.4-25.7); Calc. Creatinine Clearance 20 mL/min (70-130); Calcium 8.3 mg/dL (7.8-10.44); Carbon Dioxide 22 mmol/L (23-31); Chloride 101 mmol/L (98-107); Estimated GFR 12; Glucose 118 mg/dL (80-115); Potassium 3.8 mmol/L (3.5-5.1); Sodium 134 mmol/L (136-145)
[2024-04-23 07:45] LABS: Vancomycin, Trough 20.5 ug/mL
[2024-04-23] MEDS: Epoetin (ESRD) 10,000 UNITS/ML VIAL SC SCH (10:49)
[2024-04-23] MEDS: EPOETIN ALFA-EPBX (ESRD) 10,000 UNITS/ML VIAL SC SCH (11:49)
[2024-04-23] MEDS: Vancomycin 250 MG in Sodium Chloride 0.9% 100 ML IVPB SCH (20:09)
[2024-04-24 05:19] LABS: #Basophils 0.03 10x3/uL (0.0-0.2); %Basophils 0.5 % (0.0-1.0); %Eosinophils 3.7 % (0.0-10.0); %Lymphocytes 45.9 % (21.0-51.0); %Monocytes 9.5 % (0.0-10.0); %Neutrophils 39.9 % (42.0-75.0); Hemoglobin 10.1 g/dL (14.0-18.0); Mean Corpuscular HGB CONC 32.6 g/dL (32.0-36.0); Mean Corpuscular Hemoglobin 29.6 pg (27.0-31.0); Mean Corpuscular Volume 90.9 fL (78.0-98.0); Mean Platelet Volume 9.1 fL (7.4-10.4); Platelet Count 138 10x3/uL (130-400); RBC Distribution Width 16.1 % (11.5-14.5); Red Blood Cell (RBC) Count 3.41 mill/uL (4.70-6.10)
[2024-04-24 05:38] LABS: Anion Gap 14 mmol/L (10-20); BUN (Urea Nitrogen) 15 mg/dL (8.4-25.7); Calc. Creatinine Clearance 30 mL/min (70-130); Calcium 8.4 mg/dL (7.8-10.44); Carbon Dioxide 24 mmol/L (23-31); Chloride 100 mmol/L (98-107); Estimated GFR 20; Glucose 93 mg/dL (80-115); Potassium 3.9 mmol/L (3.5-5.1); Sodium 134 mmol/L (136-145)
[2024-04-24 09:12] VITALS: BP 129/69; TEMP 97.4
== END 2024-04-24 15:03 | disposition home or self-care (01) | DRG 638 ==
LOC: ERS 11:46 → SURG B 16:52
PROVIDERS: ADMIT Internal Medicine; ATTEND Family Medicine
DX: E11.69 Type 2 diabetes mellitus with other specified complication (principal); I13.0 Hypertensive heart and chronic kidney disease with heart failure and stage 1 through stage 4 chronic kidney disease, or unspecified chronic kidney disease; I50.32 Chronic diastolic (congestive) heart failure; M86.9 Osteomyelitis, unspecified; L97.829 Non-pressure chronic ulcer of other part of left lower leg with unspecified severity; F32.A Depression, unspecified; G40.909 Epilepsy, unspecified, not intractable, without status epilepticus; E78.5 Hyperlipidemia, unspecified; E11.40 Type 2 diabetes mellitus with diabetic neuropathy, unspecified; E11.22 Type 2 diabetes mellitus with diabetic chronic kidney disease; E87.6 Hypokalemia; E83.39 Other disorders of phosphorus metabolism; E11.622 Type 2 diabetes mellitus with other skin ulcer; D63.1 Anemia in chronic kidney disease; Z86.73 Personal history of transient ischemic attack (TIA), and cerebral infarction without residual deficits; Z88.0 Allergy status to penicillin; Z88.8 Allergy status to other drugs, medicaments and biological substances; Z90.49 Acquired absence of other specified parts of digestive tract; Z89.511 Acquired absence of right leg below knee; Z79.82 Long term (current) use of aspirin; Z79.4 Long term (current) use of insulin; Z79.899 Other long term (current) drug therapy
CPT/HCPCS: 36415; 36416; 80048; 80053; 80069; 80202; 82728; 83540; 83550; 83605; 85025; 86141; 86704; 86706; 86803; 87040; 87340; 94760; 96365; 96366; 97139; J0692; J1644; J1815; J3370; J3371; Q5105; Q9967

== ENCOUNTER 2024-05-16 09:14 | Emergency (ER) | payer MEDICARE, OTHER ==
[2024-05-16] MEDS ORDERED: Acetaminophen 325 MG TAB ONE (10:58)
[2024-05-16 11:09] LABS: #Basophils Less than 0.03 10x3/uL (0.0-0.2); %Basophils 0.3 % (0.0-1.0); %Eosinophils 3.8 % (0.0-10.0); %Lymphocytes 38.7 % (21.0-51.0); %Monocytes 10.1 % (0.0-10.0); %Neutrophils 46.4 % (42.0-75.0); Hematocrit 28.7 % (42.0-52.0); Hemoglobin 9.3 g/dL (14.0-18.0); Mean Corpuscular HGB CONC 32.4 g/dL (32.0-36.0); Mean Corpuscular Hemoglobin 31.1 pg (27.0-31.0); Mean Platelet Volume 9.7 fL (7.4-10.4); Platelet Count 127 10x3/uL (130-400); RBC Distribution Width 16.3 % (11.5-14.5); Red Blood Cell (RBC) Count 2.99 mill/uL (4.70-6.10)
[2024-05-16 11:28] LABS: CRP,High Sensitivity (Inhouse) 2.49 mg/dL (< or = 0.5)
[2024-05-16 11:29] LABS: ALT (SGPT) 13 U/L (8-55); AST (SGOT) 26 U/L (5-34); Albumin 2.5 g/dL (3.4-4.8); Alkaline Phosphatase 203 U/L (40-110); Anion Gap 14 mmol/L (10-20); BUN (Urea Nitrogen) 38 mg/dL (8.4-25.7); Bilirubin, Total 0.2 mg/dL (0.2-1.2); CK (CPK) 33 U/L (30-200); Calc. Creatinine Clearance 0 mL/min (70-130); Calcium 8.4 mg/dL (7.8-10.44); Carbon Dioxide 27 mmol/L (23-31); Chloride 102 mmol/L (98-107); Estimated GFR 11; Globulin 3.4 g/dL (2.4-3.5); Glucose 272 mg/dL (80-115); Potassium 4.5 mmol/L (3.5-5.1); Protein, Total 5.9 g/dL (5.8-8.1); Sodium 138 mmol/L (136-145)
[2024-05-16] MEDS ORDERED: Morphine 4 MG/ML VIAL ONE (13:09)
[2024-05-16] MEDS ORDERED: Ondansetron ODT 4 MG TAB ONE (13:10)
== END 2024-05-16 13:24 ==
LOC: ERS 09:14
DX: E11.621 Type 2 diabetes mellitus with foot ulcer (principal); L97.429 Non-pressure chronic ulcer of left heel and midfoot with unspecified severity; I10 Essential (primary) hypertension; Z99.2 Dependence on renal dialysis; Z86.73 Personal history of transient ischemic attack (TIA), and cerebral infarction without residual deficits
CPT/HCPCS: 73630; 80053; 82550; 85025; 86141; 93971; J2270; Q0162; 36415; 96372

== ENCOUNTER 2024-05-21 09:43 | Emergency (ER) | payer OTHER ==
[2024-05-21 10:25] LABS: #Basophils Less than 0.03 10x3/uL (0.0-0.2); %Basophils 0.2 % (0.0-1.0); %Eosinophils 4.6 % (0.0-10.0); %Monocytes 6.7 % (0.0-10.0); %Neutrophils 66.1 % (42.0-75.0); Hematocrit 27.4 % (42.0-52.0); Hemoglobin 8.9 g/dL (14.0-18.0); Mean Corpuscular HGB CONC 32.5 g/dL (32.0-36.0); Mean Corpuscular Hemoglobin 30.4 pg (27.0-31.0); Mean Corpuscular Volume 93.5 fL (78.0-98.0); Platelet Count 130 10x3/uL (130-400); RBC Distribution Width 16.2 % (11.5-14.5); Red Blood Cell (RBC) Count 2.93 mill/uL (4.70-6.10)
[2024-05-21 10:44] LABS: CRP,High Sensitivity (Inhouse) 1.38 mg/dL (< or = 0.5)
[2024-05-21 10:45] LABS: Magnesium 2.5 mg/dL (1.6-2.6)
[2024-05-21 10:54] LABS: ALT (SGPT) 7 U/L (Less than 45); AST (SGOT) 23 U/L (11-34); Albumin 2.7 g/dL (3.1-4.5); Alkaline Phosphatase 141 U/L (40-110); Anion Gap 21 mmol/L (10-20); BUN (Urea Nitrogen) 91 mg/dL (8.4-25.7); Bilirubin, Total 0.3 mg/dL (0.3-1.2); Calc. Creatinine Clearance 0 mL/min (70-130); Calcium 8.6 mg/dL (7.8-10.44); Carbon Dioxide 20 mmol/L (23-31); Chloride 102 mmol/L (98-107); Estimated GFR 6; Globulin 3.7 g/dL (2.4-3.5); Glucose 150 mg/dL (80-115); Potassium 6.7 mmol/L (3.5-5.1); Protein, Total 6.4 g/dL (5.8-8.1); Sodium 136 mmol/L (136-145)
[2024-05-21 11:22] LABS: Troponin I 0.023 ng/mL (< 0.028)
== END 2024-05-21 12:25 | disposition home or self-care (01) ==
LOC: ERS 09:43
DX: E87.5 Hyperkalemia (principal); M79.672 Pain in left foot; E11.40 Type 2 diabetes mellitus with diabetic neuropathy, unspecified; I10 Essential (primary) hypertension; Z55.0 Illiteracy and low-level literacy; Z86.73 Personal history of transient ischemic attack (TIA), and cerebral infarction without residual deficits
CPT/HCPCS: 36416; 80053; 83605; 83735; 84484; 85025; 86141; 93005; 99285

== ENCOUNTER 2025-01-26 11:30 | Emergency (ER) | payer OTHER ==
[2025-01-26] MEDS ORDERED: Ondansetron PF 4 MG/2 ML Vial ONE (11:51)
[2025-01-26 12:49] LABS: #Basophils 0.05 10x3/uL (0.0-0.2); #Eosinophils 0.30 10x3/uL (0.0-0.7); #Monocytes 0.75 10x3/uL (0.11-0.59); #Neutrophils 10.37 10x3/uL (1.40-6.50); %Basophils 0.4 % (0.0-1.0); %Eosinophils 2.2 % (0.0-10.0); %Lymphocytes 16.0 % (21.0-51.0); %Monocytes 5.5 % (0.0-10.0); %Neutrophils 75.5 % (42.0-75.0); Hematocrit 35.9 % (42.0-52.0); Hemoglobin 11.6 g/dL (14.0-18.0); Mean Corpuscular Hemoglobin 31.2 pg (27.0-31.0); Mean Corpuscular Volume 96.5 fL (78.0-98.0); Platelet Count 114 10x3/uL (130-400); Red Blood Cell (RBC) Count 3.72 mill/uL (4.70-6.10); White Blood Cell (WBC) Count 13.72 10x3/uL (4.8-10.8)
[2025-01-26 13:21] LABS: Burr Cells SLIGHT = 2-5 cells HPF (0-1); Platelet Adequacy Comment Platelets Decreased; Polychromasia SLIGHT = 2-3 cells HPF (0-2)
[2025-01-26 13:28] LABS: ALT (SGPT) 16 U/L (Less than 45); AST (SGOT) 24 U/L (11-34); Albumin 2.7 g/dL (3.1-4.5); Alkaline Phosphatase 125 U/L (40-110); Anion Gap 19 mmol/L (10-20); BUN (Urea Nitrogen) 63 mg/dL (8.4-25.7); Bilirubin, Total 0.4 mg/dL (0.3-1.2); Calc. Creatinine Clearance 0 mL/min (70-130); Calcium 8.6 mg/dL (7.8-10.44); Carbon Dioxide 21 mmol/L (23-31); Chloride 98 mmol/L (98-107); Globulin 3.3 g/dL (2.4-3.5); Glucose 154 mg/dL (80-115); Potassium 4.3 mmol/L (3.5-5.1); Sodium 134 mmol/L (136-145)
== END 2025-01-26 15:25 ==
LOC: ERS 11:30
DX: K52.9 Noninfective gastroenteritis and colitis, unspecified (principal); E11.22 Type 2 diabetes mellitus with diabetic chronic kidney disease; N18.6 End stage renal disease; I13.2 Hypertensive heart and chronic kidney disease with heart failure and with stage 5 chronic kidney disease, or end stage renal disease; I50.9 Heart failure, unspecified; E78.5 Hyperlipidemia, unspecified; Z79.899 Other long term (current) drug therapy; Z79.82 Long term (current) use of aspirin; Z79.4 Long term (current) use of insulin
CPT/HCPCS: 36415; 74176; 80053; 83605; 85025; 96372; 96374; 96375

== ENCOUNTER 2025-02-16 13:46 | Emergency (ER) | payer OTHER ==
[2025-02-16] MEDS ORDERED: HYDROcodone/Acetaminophen 10/325 mg Tablet ONE (15:35)
== END 2025-02-16 18:24 | disposition home or self-care (01) ==
LOC: ERS 13:46
DX: S31.801A Laceration without foreign body of unspecified buttock, initial encounter (principal); E11.22 Type 2 diabetes mellitus with diabetic chronic kidney disease; I13.2 Hypertensive heart and chronic kidney disease with heart failure and with stage 5 chronic kidney disease, or end stage renal disease; I50.9 Heart failure, unspecified; N18.6 End stage renal disease; W45.0XXA Nail entering through skin, initial encounter; Z79.899 Other long term (current) drug therapy; Z79.82 Long term (current) use of aspirin; Z79.4 Long term (current) use of insulin
CPT/HCPCS: 99283